=== PATIENT | male | born 1985 | race Caucasian/White ===

== ENCOUNTER 2020-06-05 12:26 | Outpatient (REF) | payer MEDICARE, MEDICAID, SELFPAY ==
[2020-06-05 14:46] LABS: Valproate 43.3 mcg/mL (50.0-100.0)
[2020-06-05 15:09] LABS: Alanine Aminotransferase 28 U/L (0-40); Albumin Level 4.6 g/dL (3.5-5.0); Alkaline Phosphatase 94 U/L (39-117); Aspartate Amino Transferase 24 U/L (5-37); Bilirubin Direct 0.2 mg/dL (0.0-0.5); Bilirubin Total 0.6 mg/dL (0.0-1.0)
[2020-06-05 15:19] LABS: Estimated Average Glucose 137 mg/dL; Hemoglobin A1c % 6.4 %
== END 2020-06-05 12:27 | disposition home or self-care (01) ==
LOC: HO.HMGCLDS 12:26
PROVIDERS: PCP Nurse Practitioner Family; Visit Provider Clinical Nurse Specialist Psychiatric/Mental Health
DX: Z79.899 Other long term (current) drug therapy (principal)
CPT/HCPCS: 80076; 80164; 83036

== ENCOUNTER 2020-11-02 22:04 | Emergency (ER) | payer MEDICARE, MEDICAID, SELFPAY ==
--- NOTE | ~2020-11-02 | XR_ITS ---
EXAMINATION: XR CHEST CLINICAL INFORMATION: Cough COMPARISON: None TECHNIQUE: Frontal view of the chest was obtained. FINDINGS: Low lung volumes. No focal consolidation or mass. Normal pulmonary vascularity. No pleural effusion or pneumothorax. Normal heart size. Regional skeleton intact. XR/XR chest 1V IMPRESSION: No acute pulmonary disease.
--- NOTE | ~2020-11-02 | CT_ITS ---
EXAMINATION: CT ANGIOGRAM OF THE CHEST WITH AND WITHOUT CONTRAST (CT PULMONARY ANGIOGRAM FOR PE) CLINICAL INFORMATION: Reason for Exam low O2, elevated dimer COMPARISON: Chest radiograph 11/02/2020 TECHNIQUE: Prior to contrast administration, noncontrast localization images were obtained. Subsequently, multidetector volumetric imaging was performed from the thoracic inlet to below the diaphragms following the administration of 60 mL Omnipaque 350 intravenous contrast. No contrast reaction reported Sagittal, coronal, and MIP oblique sagittal reformatted images were obtained on the CT workstation, uploaded to PACS, and reviewed. This CT examination was performed using dose optimization techniques as appropriate, variously including the following: *Automated exposure control *Adjustment of mA and/or kV according to patient size (this includes techniques or standardized protocols for targeted exams where dose is matched to indication/reason for exam; i.e. extremities or head) *Use of iterative reconstruction technique Total exam dose-length product 599 mGy-cm FINDINGS: QUALITY OF STUDY/CONTRAST BOLUS: Satisfactory. PULMONARY ARTERIES: No central or segmental pulmonary emboli. THORACIC AORTA: No aneurysm or dissection. LUNG: No focal consolidation, nodules or masses. There is dependent atelectasis bilaterally. PLEURA: No pleural effusion or pneumothorax. MEDIASTINUM: Normal heart size. No pericardial effusion. Mildly enlarged prevascular lymph node measuring up to 1.1 cm in short axis (series 8, image 18). Additional shotty subcentimeter lymph nodes in the prevascular and right paratracheal regions. No evidence of septal bowing or right heart strain. CHEST WALL/AXILLA: No axillary or internal mammary lymphadenopathy. OSSEOUS STRUCTURES: Mild compression deformity of the T12 vertebral body, of indeterminate age, likely chronic. Mild multilevel degenerative changes of the spine. UPPER ABDOMEN: Unremarkable. No reflux of contrast into the hepatic veins to suggest elevated right heart pressures. CT/CT angio chest PE protocol IMPRESSION: 1. No evidence of pulmonary embolism. 2. Dependent atelectasis bilaterally. No large focal consolidation. 3. Mildly enlarged prevascular lymph node measuring up to 1.1 cm in short axis, may be reactive. 4. Mild compression deformity of the T12 vertebral body, of indeterminate age but likely chronic. Recommend clinical correlation. VTE: negative
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
[2020-11-02 22:13] VITALS: BP 141/71; PULSE 125; RESP 20; TEMP 37.2; O2SAT 94; BMI 40.6
[2020-11-02 22:26] LABS: Glucose, Whole Blood 233 mg/dL (60-115)
--- NOTE | 2020-11-02 22:26 | ECG_ITS ---
Test Reason : OVERDOSED Blood Pressure : / mmHG Vent. Rate : 123 BPM Atrial Rate : 123 BPM P-R Int : 146 ms QRS Dur : 082 ms QT Int : 302 ms P-R-T Axes : 043 006 026 degrees QTc Int : 432 ms Sinus tachycardia Possible Inferior infarct , age undetermined Cannot rule out Anterior infarct , age undetermined Abnormal ECG No previous ECGs available Referred By: Criss Bo Electronically Signed By:Renny Calle
[2020-11-02 22:34] VITALS: BP 135/100; PULSE 130; RESP 20; O2SAT 87; O2SAT 96
--- NOTE | 2020-11-02 22:36 | PC.NURSE ---
IV established, all labs obtained including BCX x 2 and lactic. MD at bedside for primary eval. CXR at bedside. IVF infusing per MAR. Continue to monitor.
[2020-11-02 22:37] LABS: MANUAL DIFF FLAG NO
[2020-11-02] MEDS: 0.9 % Sodium Chloride 1,000 ML 999 ML IV ×2 (22:37→23:02)
[2020-11-02 22:39] LABS: Basophils Percent Auto 0.3 % (0-2); Eosinophils Absolute Auto 0.2 X10*3/uL (0.0-0.4); Eosinophils Percent Auto 3.2 % (0-4); Hematocrit 42.4 % (42-52); Imm Gran Abs Auto 0.03 X10*3/uL (0.00-0.03); Imm Gran Pct Auto 0.4 % (0.0-0.4); Lymphocytes Percent Auto 27.4 % (20-40); Mean Corpuscular Hemoglobin 29.2 pg (27.0-33.0); Mean Corpuscular Volume 88.5 fL (80-98); Monocytes Absolute Auto 0.4 X10*3/uL (0.1-1.2); Monocytes Percent Auto 5.9 % (2-11); Neutrophils Absolute Auto 4.7 X10*3/uL (2.0-8.3); Neutrophils Percent Auto 62.8 % (45-73); Platelet Count 155 X10*3/uL (160-400); Red Blood Count 4.79 X10*6/uL (4.60-5.80); Red Cell Distribution Width 14.3 % (11.0-16.0); White Blood Count 7.4 X10*3/uL (4.8-10.8)
[2020-11-02 22:44] VITALS: BP 143/102; PULSE 113; RESP 18; O2SAT 96
--- NOTE | 2020-11-02 22:53 | PC.NURSE ---
This RN calling Poison Control. Per Poison Control, to repeat all labs including Tylenol and ASA level in 4 hours. Per Poison Control to monitor for at least 6 hours. Per Poison Control, caution with Narcan due to daily use and r/f inducing withdrawals. Poison Control to call back for lab results in 2 hours. aware.
[2020-11-02 23:01] VITALS: BP 130/87; PULSE 110; RESP 18; O2SAT 96
[2020-11-02 23:06] LABS: Lactic Acid 2.1 mmol/L (0.5-2.0)
[2020-11-02 23:08] LABS: Acetaminophen LAB < 1 mcg/mL (<30); Alanine Aminotransferase 45 U/L (0-40); Albumin Level 4.2 g/dL (3.5-5.0); Alkaline Phosphatase 122 U/L (39-117); Anion Gap 15 (12-20); Aspartate Amino Transferase 35 U/L (5-37); Bilirubin Total 0.5 mg/dL (0.0-1.0); Blood Urea Nitrogen 18 mg/dL (9-16); Calcium 8.8 mg/dL (8.4-10.2); Carbon Dioxide 25 mmol/L (22-29); Chloride 104 mmol/L (96-108); Creatinine Clr Calc Pharmacy 138.9; Estimated Glomerular Filt Rate > 60; Glucose Random 221 mg/dL (60-115); Magnesium 1.9 mg/dL (1.6-2.6); Potassium 4.2 mmol/L (3.3-5.1); Salicylate < 5.0 mg/dL (15-30); Sodium 140 mmol/L (135-145)
[2020-11-02 23:10] LABS: Acetone, serum QL Negative (Negative)
--- NOTE | 2020-11-02 23:25 | PC.NURSE ---
Dad (Nando Roldan, ) calling this RN for update. Per father, pt has been struggling with an addiction to pain medications for at least a decade. Father explains that pt was seen at [facility] yesterday for leg pain. Pt was prescribed twelve 5 mg Oxycodone that he took tonight prior to father calling EMS. Per father, pt refusing rehab, father planning to [facility] patient. Per father, pt is on a contract with PCP regarding pain medications. Father states He has gone through 90 Oxycodone in a weekend!! Father concerned for pts safety, states he is no longer able to care for pt and no longer wants him in the house.
[2020-11-02 23:46] VITALS: BP 133/78; PULSE 100; RESP 16; O2SAT 95
--- NOTE | 2020-11-02 23:50 | PC.NURSE ---
IVF infusing per MAR. Pt very drowsy, sleeping at this time. VSS, RR 16, 02 SAT 95%, nasal cap 36. Continue to monitor.
[2020-11-03] VITALS (8 sets, daily range): BP systolic 105–142; BP diastolic 68–89; PULSE 88–97; RESP 14–20; TEMP 36.4; O2SAT 90–96
[2020-11-03 00:40] LABS: Reflex Lactate? Lactic Acid Added
--- NOTE | 2020-11-03 00:46 | PC.NURSE ---
Repeat lactic obtained and sent.
--- NOTE | 2020-11-03 00:50 | PC.NURSE ---
Poison Control calling for update regarding pts resulted labs. Plan to repeat chemistries including LFTs, Tylenol and ASA @ 0300. Per Poison Control, if LFTs or Tylenol result as elevated to call them back.
[2020-11-03 01:18] LABS: ~Lactic Acid-LAB USE ONLY 0.9 mmol/L (0.5-2.0)
[2020-11-03 03:14] LABS: MANUAL DIFF FLAG NO
[2020-11-03 03:16] LABS: Basophils Percent Auto 0.4 % (0-2); Eosinophils Absolute Auto 0.2 X10*3/uL (0.0-0.4); Eosinophils Percent Auto 2.7 % (0-4); Hemoglobin 12.6 g/dl (14.0-18.0); Imm Gran Abs Auto 0.03 X10*3/uL (0.00-0.03); Imm Gran Pct Auto 0.4 % (0.0-0.4); Lymphocytes Absolute Auto 2.3 X10*3/uL (1.2-4.9); Lymphocytes Percent Auto 27.6 % (20-40); Mean Corpuscular HGB Conc 32.3 g/dl (31.0-36.0); Mean Corpuscular Hemoglobin 29.2 pg (27.0-33.0); Mean Corpuscular Volume 90.3 fL (80-98); Mean Platelet Volume 11.8 fL (9.4-12.4); Monocytes Absolute Auto 0.9 X10*3/uL (0.1-1.2); Monocytes Percent Auto 10.7 % (2-11); Neutrophils Absolute Auto 4.8 X10*3/uL (2.0-8.3); Neutrophils Percent Auto 58.2 % (45-73); Platelet Count 141 X10*3/uL (160-400); Red Blood Count 4.32 X10*6/uL (4.60-5.80); Red Cell Distribution Width 14.4 % (11.0-16.0); White Blood Count 8.3 X10*3/uL (4.8-10.8)
[2020-11-03 03:39] LABS: Acetaminophen LAB < 1 mcg/mL (<30); Alanine Aminotransferase 38 U/L (0-40); Albumin Level 3.8 g/dL (3.5-5.0); Alkaline Phosphatase 108 U/L (39-117); Anion Gap 11 (12-20); Aspartate Amino Transferase 26 U/L (5-37); Bilirubin Total 0.2 mg/dL (0.0-1.0); Blood Urea Nitrogen 17 mg/dL (9-16); Calcium 8.2 mg/dL (8.4-10.2); Carbon Dioxide 30 mmol/L (22-29); Chloride 106 mmol/L (96-108); Creatinine Clr Calc Pharmacy 169.9; Estimated Glomerular Filt Rate > 60; Glucose Random 130 mg/dL (60-115); Potassium 4.3 mmol/L (3.3-5.1); Sodium 143 mmol/L (135-145); Total Protein 5.9 g/dL (6.5-8.0)
--- NOTE | 2020-11-03 03:51 | PC.NURSE ---
Per MD, pt medically cleared, able to go to the pod in the morning. Pt remains extremely drowsy, wakes briefly but immediately returns to sleep. Plan to consult with crisis in the morning.
--- NOTE | 2020-11-03 03:56 | ECG_ITS ---
Test Reason : REPEAT Blood Pressure : / mmHG Vent. Rate : 091 BPM Atrial Rate : 091 BPM P-R Int : 160 ms QRS Dur : 082 ms QT Int : 358 ms P-R-T Axes : 051 -07 000 degrees QTc Int : 440 ms Normal sinus rhythm Inferior infarct (cited on or before 02-NOV-2020) Cannot rule out Anterior infarct (cited on or before 02-NOV-2020) Abnormal ECG When compared with ECG of 02-NOV-2020 22:12, No significant change was found Referred By: Criss Bo Electronically Signed By:Renny Calle
--- NOTE | 2020-11-03 04:05 | PC.NURSE ---
signals collection technician at bedside to obtain repeat EKG and urine sample.
--- NOTE | 2020-11-03 04:40 | PC.NURSE ---
MD aware of low O2 saturations, 90% on RA. Pt -> O2 via NC @ 2 lpm, O2 sat increasing to 95%. Covid swab obtained due to decreased O2 sats, awaiting results. Continue to monitor.
[2020-11-03 04:43] LABS: Glucose Urine UA 100 MG/DL (NEG); Leukocyte Esterase Urine NEG (NEG); Nitrite Urine NEG (NEG); PH 5.5 (5.0-8.0); Specific Gravity - Urine >= 1.030 (1.005-1.025); Urine Blood NEG (NEG); Urine Ketones NEG (NEG); Urine Protein NEG (NEG-TRACE)
[2020-11-03 04:55] LABS: Appearance Urine CLEAR; Color Urine DARK YELLOW
[2020-11-03] MEDS: cephALEXin 500 MG CAPSULE PO (04:56)
[2020-11-03 04:57] LABS: COVID-19 Test Negative (Negative); IDNOW Serial# 9DD0AD1C
--- NOTE | 2020-11-03 04:59 | PC.NURSE ---
Medicated per MAR.
--- NOTE | 2020-11-03 05:16 | PC.NURSE ---
Fax to [facility].
[2020-11-03 05:18] LABS: Amphetamine Screen Urine Not Detected (Not Detect); Barbiturates, Urine Not Detected (Not Detect); Benzodiazepines Screen Urine POSITIVE (Not Detect); Cannabinoid Screen Urine Not Detected (Not Detect); Cocaine Screen Urine Not Detected (Not Detect); Opiate Screen Urine POSITIVE (Not Detect); Phencyclidine Screen Urine Not Detected (Not Detect)
--- NOTE | 2020-11-03 06:36 | PC.NURSE ---
Addendum entered by Tory Foster 11/03/20 06:37: This RN contacting lab regarding hold light blue tube from admission. Plan to add on DDimer. Original Note: Pt sleeping in bed at this time. Per MD, plan to add on DDimer and possibly considering CTA for r/o PE due to decreased O2 sats. VSS at this time.
--- NOTE | 2020-11-03 06:55 | PC.NURSE ---
received report from james leigh pt is currently asleep, respirations even and unlabored.
--- NOTE | 2020-11-03 07:11 | PC.NURSE ---
[place] [facility] [place] [facility] [place] did not receive the original fax
[2020-11-03 07:20] LABS: D Dimer 333 NG/ML
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
--- NOTE | 2020-11-03 09:02 | PC.NURSE ---
BHN AT BEDSIDE EVALUATING THE PT
--- NOTE | 2020-11-03 10:26 | PC.NURSE ---
pt of to ct daven cleared the pt to go home
--- NOTE | 2020-11-03 10:40 | PC.NURSE ---
PT TAKEN OFF THE OXYGEN TO SEE IF HE DIPPED DOWN AGAIN
[2020-11-03] MEDS: iohexoL 350 MG/ML 75 ML INFUS..BTL 60 ML IV (10:46)
--- NOTE | 2020-11-03 11:30 | PC.NURSE ---
pt satting 92% on room air
== END 2020-11-03 12:45 | disposition home or self-care (01) ==
PROVIDERS: Student in an Organized Health Care Education/Training Program; Emergency Provider Emergency Medicine
DX: T40.2X2A Poisoning by other opioids, intentional self-harm, initial encounter (principal); R45.851 Suicidal ideations; L03.115 Cellulitis of right lower limb; R05 Cough; Y92.009 Unspecified place in unspecified non-institutional (private) residence as the place of occurrence of the external cause; Z79.899 Other long term (current) drug therapy; Z20.822 Contact with and (suspected) exposure to COVID-19
CPT/HCPCS: 36415; 71045; 71275; 80053; 80143; 80179; 80307; 81003; 82009; 82947; 83605; 83735; 85025; 85379; 87040; 87635; 93005; 96361; 96365; 99285; Q9967

== ENCOUNTER 2024-01-27 10:12 | Emergency (ER) | payer MEDICARE, MEDICAID, SELFPAY ==
--- NOTE | ~2024-01-27 | XR_ITS ---
EXAMINATION: XR FOOT, RIGHT CLINICAL INFORMATION: Wound with pain COMPARISON: None available. TECHNIQUE: AP, lateral, and oblique views of the right foot. FINDINGS: There is generalized osteopenia. Only 4 toes are seen with probable amputation of the fifth digit. Degenerative changes are seen at the interphalangeal joints and first. No fractures or dislocations are seen. No bony destructive changes to suggest osteomyelitis. XR/XR foot RT min 3V IMPRESSION: No evidence of osteomyelitis. Degenerative changes as described above.
--- NOTE | ~2024-01-27 | US_ITS ---
EXAMINATION: US VENOUS ULTRASOUND WITH DOPPLER LOWER EXTREMITY, RIGHT CLINICAL INFORMATION: Right lower extremity swelling COMPARISON: None available. TECHNIQUE: Ultrasound of the deep veins is performed from the hip to the calf with compression sonography and color and pulse Doppler assessment. Spectral analysis with color-flow imaging is performed. FINDINGS: There is normal venous compression and respiratory variation and augmented flow. The visualized common femoral vein, superficial femoral vein, profunda femoral vein, popliteal vein, and the posterior tibial and peroneal veins show no evidence of deep venous thrombosis. The contralateral common femoral vein demonstrates normal vascular flow and respiratory variation. Multiple large benign-appearing right groin lymph nodes are seen including 2.2 x 1.1 x 2.4 cm and 4.3 x 1.7 x 3.5 cm lymph nodes. US/US venous duplex LE RT IMPRESSION: 1. No DVT demonstrated in the right lower extremity. 2. Multiple large benign-appearing right groin lymph nodes.
--- NOTE | 2024-01-27 10:27 | ED.GENADULT ---
HPI - General Adult General Chief complaint: Extremity Injury, Lower Stated complaint: Wound R foot Time Seen by Provider: 01/27/24 10:21 Source: patient and RN notes reviewed Mode of arrival: ambulatory Limitations: no limitations History of Present Illness ED Provider: Aliyah Medellin PA-C HPI narrative: This is a 38-year-old male, with a history of Guillain-Herod syndrome, and depression, who presents emergency department with complaints of chronic right foot wound. Pt states that since september 2023 he has had problems with his right heel. He states that he has been seen at multiple offices and hospitals but states that it is not healing. No new trauma or injury. He has been given oxycodone and buprenorphine which does not help with his pain. He endorses chills. complaint: R heel pain, LE swelling Onset (ago): month(s) Location: lower extremity Radiation: non-radiation Severity: moderate Quality: aching Pain Consistency: constant Relieving factors: immobilization Exacerbating factors: movement Associated symptoms: denies other symptoms Treatments prior to arrival: none Related Data Previous Rx's ?Medication ?Instructions ?Recorded cephalexin 500 mg capsule 500 mg PO Q8H 7 days #21 caps 11/03/20 doxycycline monohydrate 100 mg 100 mg PO BID 7 days #14 caps 11/03/20 capsule Allergies Allergy/AdvReac Type Severity Reaction Status Date / Time baclofen Allergy Hives Verified 01/27/24 10:45 lithium Allergy Unresponsiv Verified 01/27/24 10:45 e metformin Allergy Unknown Verified 01/27/24 10:45 sulfamethoxazole Allergy Hives Verified 01/27/24 10:45 [From Bactrim] trimethoprim [From Bactrim] Allergy Hives Verified 01/27/24 10:45 Review of Systems Review of Systems: Yes all other systems are reviewed and are negative Constitutional: Constitutional: Reports as per [facility] Social History Social History Smoked in Last 30 Days: No Use of substances other than those prescribed or required for medical reasons: No Substance Use Type Other:: hx polysubstance Advance Directives: No Advance Directives Information Provided: Yes Do you have a plan to hurt others: No Plan Physical Exam ED Vital Signs: Vital Signs - 24 hr 01/27/24 10:37 01/27/24 12:41 01/27/24 13:04 Temperature 97.7 F 97.7 F Pulse Rate 106 H 127 H 127 H Respiratory Rate 16 17 17 Blood Pressure 142/87 H 139/89 139/89 Pulse Oximetry 96 98 98 Oxygen Delivery Method Room Air Room Air Room Air BMI result Body Mass Index 37.3 Const General: cooperative, comfortable and no acute distress Orientation/consciousness: patient oriented x3 Limitations: no limitations HENMT Head: Yes normal to inspection, Yes normocephalic and Yes atraumatic Ears: hearing grossly normal bilaterally General nose exam: Normal external nose present Face and sinus: Yes normal facial exam Mouth: Normal oral and palatal mucosa present, oropharynx normal and moist mucous membranes Throat: Yes posterior oropharynx normal Eyes General: appearance normal, both eyes and all related structures Eyelids: Yes eyelids normal Conjunctivae: conjunctivae normal Sclerae: sclerae normal Pupils: Equal, round and reactive pupils present EOM: EOMs intact bilaterally Neck Neck: Yes normal visual inspection, Yes full ROM and Yes no lymphadenopathy Lymphatic: no lymphadenopathy noted Chest Chest palpation & inspection: normal inspection of the chest Resp Effort & Inspection: normal respiratory effort and able to speak in complete sentences Auscultation: clear to auscultation bilaterally, no crackles, no rales, no rhonchi and no wheezes Cardio Rate: regular rate Rhythm: regular rhythm Heart sounds: S1 normal heart sound present and S2 normal heart sound present GI Inspection: Yes normal to inspection Skin General skin exam: no rashes or lesions noted Trauma: no lacerations or abrasions Wounds: no wounds Neuro General: patient oriented x3 and moves all extremities Cranial nerves: Yes Equal, round and reactive pupils present Extrem Other: R heel with chronic ulceration noted, no surrounding erythema, warmth or drainage. Strong DP pulse. 1+ edema noted General: Yes normal to inspection Right upper extremity: normal to inspection Left upper extremity: normal to inspection Right lower extremity: normal to inspection Left lower extremity: normal to inspection Course Reevaluation(s) Reevaluation #1: Labs returned, he has no leukocytosis, he does have a normocytic anemia noted with a H&H of 13/38.3 chemistry without any evidence of BRYCE, slight hyperglycemia at 145, CRP elevated at 0.93. Foot x-ray does not show any evidence of osteomyelitis. Awaiting ultrasound report at this time. I discussed workup with patient and went to reassess his pain after medicating with oxycodone 5 mg p.o.. Patient reports that this did not touch his pain whatsoever and is requesting more pain medication. He was found ambulating throughout the emergency room, did not appear to be in any significant distress secondary to pain. I discussed with him Toradol would be a good option for him, patient reporting that he is tired of being treated as a drug addict, I explained to him in great detail that that is not the case and I would like to further assess his pain and further manage his pain with other options besides narcotics. He has agreeable for the Toradol. After leaving the room, patient is seen trying to walk out of the emergency room. I requested the hotel maintenance technician to repeat temperature as his heart rate was elevated at 127, and upon reassessment with the ED hotel maintenance technician to have this temperature repeated, he was found trying to get out of the emergency room prior to completing treatment. I stopped patient and told him that his workup is not complete and I am concerned given chronic wound, elevated HR and his ultrasound has not returned. Patient states that he ?is not trying to start a problem and would like to leave , I advised patient that this is against medical advice and that he needs to have his workup completed in the emergency room, he adamantly refuses despite me telling him all of the risks of leaving without completing his treatment including worsening infection, . He understands the risks of leaving against medical advice. We received paperwork from [facility], he had a similar incident on 01/16, where he stated he was using the restroom and left the building. Time: 12:49 Medications Administered Discontinued Medications Generic Name Dose Route Start Last Admin Trade Name Jake PRN Reason Stop Dose Admin Oxycodone HCl 5 mg 01/27/24 10:51 01/27/24 11:18 Oxycodone Hcl Immed Release 5 Mg Tablet PO 01/27/24 10:52 5 mg ONCE ONE Administration Medical Decision Making Medical Decision Making [facility] Narrative: 38 y/o M presenting to the ER with complaints of right foot chronic wound. On arrival, vital signs within normal limits. He has had a chronic wound for several months. Has been seen at multiple hospitals for similar symptoms however states that no one is listening to him in treating his pain. Discussed with patient that we can give him a 1 time dose of oxycodone while we await for workup. Area does not appear to be profoundly infected however given chronic wound, will obtain labs, x-ray, ultrasound, as well as blood cultures. Differential Diagnosis Differential Diagnoses: The differential diagnosis associated with the presentation includes chronic wound cellulitis DVT ulcer Admission/Observation Consideration of admission/observation: Escalation of care including admission/observation considered Escalation of care including admission/observation considered Lab Data MDM Lab Attestation statement: I reviewed the patient's lab results. No leukocytosiis, 01/27/24 11:33 01/27/24 11:33 Labs: Lab Results 01/27/24 Range/Units 11:33 WBC 5.6 (4.8-10.8) X10*3/uL RBC 4.07 L (4.60-5.80) X10*6/uL Hgb 13.0 L (14.0-18.0) g/dl Hct 38.3 L (42.0-52.0) % MCV 94.1 (80.0-98.0) fL MCH 31.9 (27.0-33.0) pg MCHC 33.9 (31.0-36.0) g/dl RDW 15.0 (11.0-16.0) % Plt Count 210 (160-400) X10*3/uL MPV 10.8 (9.4-12.4) fL Immature Gran % (Auto) 0.4 (0.0-0.4) % Neut % (Auto) 54.2 (45-73) % Lymph % (Auto) 35.4 (20-40) % Williams % (Auto) 7.0 (2-11) % Eos % (Auto) 2.5 (0-4) % Baso % (Auto) 0.5 (0-2) % Lymph # (Auto) 2.0 (1.2-4.9) X10*3/uL Williams # (Auto) 0.4 (0.1-1.2) X10*3/uL Eos # (Auto) 0.1 (0.0-0.4) X10*3/uL Baso # (Auto) 0.0 (0.0-0.2) X10*3/uL Abs Immat Gran (auto) 0.02 (0.00-0.03) X10*3/uL Absolute Neuts (auto) 3.0 (2.0-8.3) x10*3/uL Absolute Nucleated RBC 0.000 (0.0-0.012) X10*3/uL Nucleated RBC % (auto) 0.0 (0.0-0.2) /100WBC ESR 27 H (0-15) MM/HR Sodium 141 (135-145) mmol/L Potassium 3.6 (3.3-5.1) mmol/L Chloride 110 H (96-108) mmol/L Carbon Dioxide 24 (22-29) mmol/L Anion Gap 11 L (12-20) BUN 12 (9-16) mg/dL Creatinine 0.66 (0.5-1.4) mg/dL Estim Creat Clear Calc 202.9 Estimated GFR > 60 Random Glucose 145 H (60-115) mg/dL Calcium 9.3 D (8.4-10.2) mg/dL Total Bilirubin 0.2 (0.0-1.0) mg/dL Direct Bilirubin 0.2 (0.0-0.5) mg/dL AST 18 (5-37) U/L ALT 17 (0-40) U/L Alkaline Phosphatase 107 (39-117) U/L C-Reactive Protein 0.93 H (< or = 0.50) mg/dL Total Protein 7.1 (6.5-8.0) g/dL Albumin 4.0 (3.5-5.0) g/dL Radiology Impression Discussion of test interpretation with radiology: I have reviewed the radiologist's reading. Radiologist Impression: FINDINGS: There is generalized osteopenia. Only 4 toes are seen with probable amputation of the fifth digit. Degenerative changes are seen at the interphalangeal joints and first. No fractures or dislocations are seen. No bony destructive changes to suggest osteomyelitis. XR/XR foot RT min 3V IMPRESSION: No evidence of osteomyelitis. Degenerative changes as described above. Dictated By: David Santana MD Discharge Plan Discharge Clinical Impression: Non-healing wound of right heel Patient Disposition: Left Against Medical Advice Prescriptions: No Action doxycycline monohydrate 100 mg capsule 100 mg PO BID 7 Days Qty: 14 0RF cephalexin 500 mg capsule 500 mg PO Q8H 7 Days Qty: 21 0RF Stand Alone Forms: Against Medical Advice Interventions: ED Discharge Assessment Last Done: 01/27/24 13:04 Discharge Date/Time: 01/27/24 13:05 Print Language: Tajik
[2024-01-27 10:37] VITALS: BP 142/87; PULSE 106; RESP 16; TEMP 36.5; O2SAT 96; BMI 37.3
[2024-01-27] MEDS: oxyCODONE HCl Immed Release 5 MG TABLET PO (11:18)
--- NOTE | 2024-01-27 11:20 | PC.NURSE ---
pt medicated per OCT for 8/10 R heel pain, provider dressed chronic diabetic ulcer on heel w light nonadhesive wrap.
[2024-01-27 11:37] LABS: MANUAL DIFF FLAG NO
[2024-01-27 11:43] LABS: Basophils Percent Auto 0.5 % (0-2); Eosinophils Absolute Auto 0.1 X10*3/uL (0.0-0.4); Eosinophils Percent Auto 2.5 % (0-4); Hematocrit 38.3 % (42.0-52.0); Imm Gran Abs Auto 0.02 X10*3/uL (0.00-0.03); Imm Gran Pct Auto 0.4 % (0.0-0.4); Lymphocytes Percent Auto 35.4 % (20-40); Mean Corpuscular HGB Conc 33.9 g/dl (31.0-36.0); Mean Corpuscular Hemoglobin 31.9 pg (27.0-33.0); Mean Corpuscular Volume 94.1 fL (80.0-98.0); Mean Platelet Volume 10.8 fL (9.4-12.4); Monocytes Absolute Auto 0.4 X10*3/uL (0.1-1.2); Neutrophils Percent Auto 54.2 % (45-73); Platelet Count 210 X10*3/uL (160-400); Red Blood Count 4.07 X10*6/uL (4.60-5.80); White Blood Count 5.6 X10*3/uL (4.8-10.8)
[2024-01-27 11:57] LABS: Alanine Aminotransferase 17 U/L (0-40); Alkaline Phosphatase 107 U/L (39-117); Anion Gap 11 (12-20); Aspartate Amino Transferase 18 U/L (5-37); Bilirubin Direct 0.2 mg/dL (0.0-0.5); Blood Urea Nitrogen 12 mg/dL (9-16); C Reactive Protein 0.93 mg/dL (< or = 0.50); Calcium 9.3 mg/dL (8.4-10.2); Carbon Dioxide 24 mmol/L (22-29); Chloride 110 mmol/L (96-108); Creatinine Clr Calc Pharmacy 202.9; Estimated Glomerular Filt Rate > 60; Glucose Random 145 mg/dL (60-115); Potassium 3.6 mmol/L (3.3-5.1); Sodium 141 mmol/L (135-145); Total Protein 7.1 g/dL (6.5-8.0)
--- NOTE | 2024-01-27 12:00 | PC.NURSE ---
pt reporting continued pain, provider aware.
[2024-01-27 12:14] LABS: Bilirubin Total 0.2 mg/dL (0.0-1.0)
[2024-01-27 12:41] VITALS: BP 139/89; PULSE 127; RESP 17; O2SAT 98
[2024-01-27 12:42] LABS: Erythrocyte Sedimentation Rate 27 MM/HR (0-15)
--- NOTE | 2024-01-27 12:58 | PC.NURSE ---
provider in room w pt reviewing labs, pt agreeable to toradol inj for cont'd pain. tech went to bedside to retemp pt - pt found wandering in hallway trying to leave. stated that he was tired of being treated like he has a drug problem. pt requesting to leave AMA. left w/o paperwork and repeat vitals, risk reviewed verbally by provider w pt. pt declined to sign AMA paperwork.
[2024-01-27 13:04] VITALS: BP 139/89; PULSE 127; RESP 17; TEMP 36.5; O2SAT 98
== END 2024-01-27 13:05 | disposition left against medical advice (07) ==
PROVIDERS: Physician Assistant Medical; Emergency Provider Student in an Organized Health Care Education/Training Program; PCP Internal Medicine Infectious Disease
DX: S91.331A Puncture wound without foreign body, right foot, initial encounter (principal); R60.0 Localized edema; M79.671 Pain in right foot; X58.XXXA Exposure to other specified factors, initial encounter; Y93.9 Activity, unspecified; Y92.9 Unspecified place or not applicable; Y99.8 Other external cause status; Z79.899 Other long term (current) drug therapy
CPT/HCPCS: 36415; 73630; 80048; 80076; 85025; 85652; 86140; 87040; 93971; 99284

== ENCOUNTER 2024-11-14 23:49 | Emergency (ER) | payer MEDICARE, MEDICAID, SELFPAY ==
--- NOTE | ~2024-11-14 | XR_ITS ---
CLINICAL HISTORY: cough Exam: PA and lateral views of the chest. Comparison: None. Findings: Mild hypoinflation. Cardiac silhouette is at the upper limits of normal for size. Streaky perihilar and basilar densities with areas of bronchial wall thickening. No dense area of consolidation. No pleural effusion or pneumothorax. Impression: Perihilar bronchitis. This document has been electronically signed by: Renzo Juares MD on 11/15/2024 01:25:37
--- NOTE | 2024-11-14 23:57 | ED.GENADULT ---
HPI - General Adult General Chief complaint: Psychiatric Symptoms Stated complaint: SEVERELY ETOH, SI/HI CONCERNS Time Seen by Provider: 11/14/24 23:57 Source: patient and EMS Mode of arrival: EMS Limitations: no limitations History of Present Illness ED Provider: javier culp NP HPI narrative: Patient is a 39-year-old male with past medical history of Guillain-[place] syndrome wheelchair-bound, right BKA, chronic peripheral neuropathy, chronic sacral decubitus ulcers,, type 2 diabetes, hypertension, right hip osteoarthritis s/p replacement, multiple compression fractures, osteoporosis, PTSD, depression, bipolar disorder, history of SI attempts in 2012 and 2014 with medication overdose who presents emergency department via EMS coming from home this evening after endorsing having been drinking alcohol for the entirety of the day including vodka. Per EMS patient was endorsing SI, HI surrounding evperiences, versions of genocide. Expressing stressors surrounding his father being in a penitentiary facility for the past 4 months, he believes his father she would be coming home in the next 2 weeks, any does not feel as though he can help him or take care of him. Denies SI/HI. Per EMS, PD has been there about daily due to various complaints. Patient was home alone on EMS arrival. He is calm and cooperative on arrival to the ED. he endorses having chronic low back and bilateral hip pain which he states is being managed by his primary care doctor through [facility] with morphine, endorses having a right [id number] amputation in May of 2024 due to ongoing heel wound. When asked he does endorse having recent cough and rhinitis. Denies headache, chest pain, shortness of breath, nausea, vomiting, abdominal pain, urogenital symptoms. Related Data Previous Rx's ?Medication ?Instructions ?Recorded cephalexin 500 mg capsule 500 mg PO Q8H 7 days #21 caps 11/03/20 doxycycline monohydrate 100 mg 100 mg PO BID 7 days #14 caps 11/03/20 capsule Allergies Allergy/AdvReac Type Severity Reaction Status Date / Time baclofen Allergy Hives Verified 11/15/24 00:18 lithium Allergy Unresponsiv Verified 11/15/24 00:18 e metformin Allergy Unknown Verified 11/15/24 00:18 sulfamethoxazole Allergy Hives Verified 11/15/24 00:18 [From Bactrim] trimethoprim [From Bactrim] Allergy Hives Verified 11/15/24 00:18 Review of Systems Review of Systems: Yes all other systems are reviewed and are negative [facility] Past Medical History Attestation statement: The following information was validated with the patient. Source: old records reviewed Social History Social History Alcohol intake: current Alcohol intake frequency: 3 or more drinks per day Alcohol type: hard liquor Smoked in Last 30 Days: Yes Use of substances other than those prescribed or required for medical reasons: No Advance Directives: No Physical Exam ED Vital Signs: Vital Signs - 24 hr 11/15/24 00:03 Temperature 99.1 F Pulse Rate 102 H Respiratory Rate 16 Blood Pressure 147/99 H Pulse Oximetry 99 Oxygen Delivery Method Room Air BMI result Body Mass Index 35.3 Appearance: Alert.?Oriented to person, place and time. No acute distress.?Normal affect. Eyes: Pupils equal, round and reactive to light.? ENT: Pharynx normal.?? Neck: Normal inspection.? Neck supple.?? CVS: Heart sounds normal. Normal heart rate and rhythm.? Pulses normal.?? Respiratory: No respiratory distress.? Lung sounds clear to auscultation bilaterally?? Abdomen: Soft and non-tender. Normoactive bowel sounds. .?? Skin: Skin warm and dry.? Normal skin color.? Extremities: No lower extremity edema.? Right BKA. Neuro: Moves all extremities spontaneously. Sensation intact bilaterally. CN II-XII intact. No focal neuro deficits. Medical Decision Making Medical Decision Making MDM Narrative: Patient is a 39-year-old male with past medical history of Guillain-[place] syndrome primarily wheelchair-bound, right BKA, chronic peripheral neuropathy, chronic sacral decubitus ulcers,, type 2 diabetes, hypertension, right hip osteoarthritis s/p replacement, multiple compression fractures, osteoporosis, PTSD, depression, bipolar disorder, history of SI attempts in 2012 and 2014 with medication overdose, on chronic pain management with morphine and Lyrica, currently on a wait list for Psychiatry at [facility] who presents emergency department today acutely intoxicated, denying SI/HI to myself as well as nursing staff here though did not to EMS, he continues to express concerns about his father not being home and hospitalized, but also about his ability to take care of his father. I did access [facility] to obtain further of his medical history, and recent PCP note indicates that rather patient's father was the caregiver of him, managing his medications etc. he does endorse having a cough and rhinitis, will obtain viral serologies and CXR to exclude abnormality.Will obtain CBC to evaluate for leukocytosis/ anemia, CMP and lipase to evaluate for abnormal electrolytes /abnormal renal function/ abnormal hepatic/biliary function, abuse screen, ethanol level, and Urinalysis. At this time, 04:50, patient is awake, alert and oriented x3, ambulatory, steady gait. Patient is able to have a coherent conversation. Patient is adamant that he is not suicidal or homicidal. Patient requesting to be discharged home. Differential Diagnosis Differential Diagnoses: The differential diagnosis associated with the presentation includes (See narrative above) Admission/Observation Consideration of admission/observation: Escalation of care including admission/observation considered Patient is being observed in the Emergency Department for acute intoxication and depression. Observation time was started at 01:23 on 11/15/2024.?The patient is currently stable and non-toxic appearing. Observation is being initiated in the Emergency Department to allow time to help differentiate if the patient?s depression is due to alcohol intoxication. The patient will receive frequent assessments from the provider as well as the nursing staff. The patient will be monitored for the need for diagnostic imaging such as a CT head, MRI brain, chest x-ray, and serial EKGs to evaluate for prolonged QTc intervals. Consult Healthcare Provider Management of the patient was discussed with: Behavioral Health Provider Lab Data MDM Lab Attestation statement: I reviewed the patient's lab results. CBC is without leukocytosis anemia or thrombocytopenia. No electrolyte derangement. No BRYCE. LFTs minimally elevated, benign abdominal examination, likely secondary to alcohol usage. Ethanol level of 369. 11/15/24 00:48 11/15/24 00:48 Labs: Lab Results 11/15/24 11/15/24 Range/Units 00:48 01:08 WBC 8.0 (4.8-10.8) X10*3/uL RBC 5.46 D (4.60-5.80) X10*6/uL Hgb 15.1 (14.0-18.0) g/dl Hct 43.4 (42.0-52.0) % MCV 79.5 L (80.0-98.0) fL MCH 27.7 (27.0-33.0) pg MCHC 34.8 (31.0-36.0) g/dl RDW 16.9 H (11.0-16.0) % Plt Count 374 D (160-400) X10*3/uL MPV 10.3 (9.4-12.4) fL Immature Gran % (Auto) 0.1 (0.0-0.4) % Neut % (Auto) 51.3 (45-73) % Lymph % (Auto) 42.2 H (20-40) % Ritchie % (Auto) 4.5 (2-11) % Eos % (Auto) 0.7 (0-4) % Baso % (Auto) 1.2 (0-2) % Lymph # (Auto) 3.4 (1.2-4.9) X10*3/uL Ritchie # (Auto) 0.4 (0.1-1.2) X10*3/uL Eos # (Auto) 0.1 (0.0-0.4) X10*3/uL Baso # (Auto) 0.1 (0.0-0.2) X10*3/uL Abs Immat Gran (auto) 0.01 (0.00-0.03) X10*3/uL Absolute Neuts (auto) 4.1 (2.0-8.3) x10*3/uL Absolute Nucleated RBC 0.000 (0.0-0.012) X10*3/uL Nucleated RBC % (auto) 0.0 (0.0-0.2) /100WBC Sodium 143 (135-145) mmol/L Potassium 3.4 (3.3-5.1) mmol/L Chloride 106 (96-108) mmol/L Carbon Dioxide 20 L (22-29) mmol/L Anion Gap 20 (12-20) BUN 11 (9-16) mg/dL Creatinine 0.59 (0.5-1.4) mg/dL Estim Creat Clear Calc 218.4 Estimated GFR > 60 Random Glucose 133 H (60-115) mg/dL Calcium 8.5 D (8.4-10.2) mg/dL Magnesium 1.5 L (1.6-2.6) mg/dL Total Bilirubin 1.2 H (0.0-1.0) mg/dL Direct Bilirubin 0.5 (0.0-0.5) mg/dL AST 66 H (5-37) U/L ALT 47 H (0-40) U/L Alkaline Phosphatase 131 H (39-117) U/L Total Protein 6.8 (6.5-8.0) g/dL Albumin 3.9 (3.5-5.0) g/dL Lipase 26 (8-78) U/L Urine Color Yellow Urine Appearance Clear Urine pH 6.5 (5.0-9.0) Ur Specific [place] 1.010 (1.005-1.025) Urine Protein Negative (Neg-Trace) mg/dL Urine Glucose (UA) Negative (Negative) mg/dL Urine Ketones Negative (Negative) mg/dL Urine Blood Negative (Negative) Urine Nitrite Negative (Negative) Ur Leukocyte Esterase Negative (Negative) Salicylates < 5.0 L (15-30) mg/dL Urine Opiates Screen Not Detected (Not Detect) Ur Buprenorphine Scrn Not Detected (Not Detect) ng/mL Ur Oxycodone Screen Not Detected (Not Detect) ng/mL Urine Methadone Screen Not Detected (Not Detect) ng/mL Urine Fentanyl Screen Not Detected (Not Detect) Acetaminophen < 3 (<30) mcg/mL Ur Barbiturates Screen Not Detected (Not Detect) Ur Phencyclidine Scrn Not Detected (Not Detect) Ur Amphetamines Screen Not Detected (Not Detect) U Benzodiazepines Scrn Not Detected (Not Detect) Urine Cocaine Screen Not Detected (Not Detect) U Marijuana (THC) Screen Not Detected (Not Detect) Ethyl Alcohol 369 H* mg/dL Influenza Type A (PCR) NEGATIVE (Negative) Influenza Type B (PCR) NEGATIVE (Negative) RSV RNA Qual (PCR) NEGATIVE (Negative) SARS-CoV-2 RNA (RT-PCR) NEGATIVE (Negative) Independent Interpretation I performed an independent interpretation of an: Plain X-Ray Radiology Impression Discussion of test interpretation with radiology: I have reviewed the radiologist's reading. Radiologist Impression: Exam: PA and lateral views of the chest. Comparison: None. Findings: Mild hypoinflation. Cardiac silhouette is at the upper limits of normal for size. Streaky perihilar and basilar densities with areas of bronchial wall thickening. No dense area of consolidation. No pleural effusion or pneumothorax. Impression: Perihilar bronchitis. Independent Historian Clinical information obtained from an independent historian. History obtained from or confirmed by: EMS External Record Review External record reviewed: Outpatient record Chronic Conditions Patient?s care impacted by: Other (See narrative above) Discharge Plan Discharge Clinical Impression: Alcohol intoxication, Depression Patient Disposition: Home, Self-Care Instructions: Depression (ED), Alcohol Intoxication (ED) Additional Instructions: Please follow-up with your primary care physician tomorrow. If you have any worsening or new symptoms, please return to the emergency room or call 911 Prescriptions: No Action doxycycline monohydrate 100 mg capsule 100 mg PO BID 7 Days Qty: 14 0RF cephalexin 500 mg capsule 500 mg PO Q8H 7 Days Qty: 21 0RF Interventions: [place]-Suicide Risk Severity Scale Last Done: 11/15/24 00:19 Print Language: S[place]an
[2024-11-14 23:58] VITALS: BP 204/142; PULSE 111; O2SAT 99
[2024-11-15 00:03] VITALS: BP 147/99; PULSE 102; RESP 16; TEMP 37.3; O2SAT 99
[2024-11-15 00:05] VITALS: BMI 35.3
--- NOTE | 2024-11-15 00:28 | PC.NURSE ---
pt denies SI/HI at this time. sad his dad is not home. appears dad was his medical sales. pt physically and mentally declining since this transition
[2024-11-15 00:56] LABS: MANUAL DIFF FLAG NO
[2024-11-15 00:57] LABS: Basophils Absolute Auto 0.1 X10*3/uL (0.0-0.2); Basophils Percent Auto 1.2 % (0-2); Eosinophils Absolute Auto 0.1 X10*3/uL (0.0-0.4); Eosinophils Percent Auto 0.7 % (0-4); Hematocrit 43.4 % (42.0-52.0); Hemoglobin 15.1 g/dl (14.0-18.0); Imm Gran Abs Auto 0.01 X10*3/uL (0.00-0.03); Imm Gran Pct Auto 0.1 % (0.0-0.4); Lymphocytes Absolute Auto 3.4 X10*3/uL (1.2-4.9); Lymphocytes Percent Auto 42.2 % (20-40); Mean Corpuscular HGB Conc 34.8 g/dl (31.0-36.0); Mean Corpuscular Hemoglobin 27.7 pg (27.0-33.0); Mean Corpuscular Volume 79.5 fL (80.0-98.0); Mean Platelet Volume 10.3 fL (9.4-12.4); Monocytes Absolute Auto 0.4 X10*3/uL (0.1-1.2); Monocytes Percent Auto 4.5 % (2-11); Neutrophils Absolute Auto 4.1 x10*3/uL (2.0-8.3); Neutrophils Percent Auto 51.3 % (45-73); Platelet Count 374 X10*3/uL (160-400); Red Blood Count 5.46 X10*6/uL (4.60-5.80); Red Cell Distribution Width 16.9 % (11.0-16.0)
[2024-11-15 01:14] LABS: Acetaminophen LAB < 3 mcg/mL (<30); Alanine Aminotransferase 47 U/L (0-40); Albumin Level 3.9 g/dL (3.5-5.0); Alkaline Phosphatase 131 U/L (39-117); Anion Gap 20 (12-20); Aspartate Amino Transferase 66 U/L (5-37); Bilirubin Direct 0.5 mg/dL (0.0-0.5); Bilirubin Total 1.2 mg/dL (0.0-1.0); Blood Urea Nitrogen 11 mg/dL (9-16); Calcium 8.5 mg/dL (8.4-10.2); Carbon Dioxide 20 mmol/L (22-29); Chloride 106 mmol/L (96-108); Creatinine Clr Calc Pharmacy 218.4; Estimated Glomerular Filt Rate > 60; Ethanol 369 mg/dL; Glucose Random 133 mg/dL (60-115); Lipase 26 U/L (8-78); Magnesium 1.5 mg/dL (1.6-2.6); Potassium 3.4 mmol/L (3.3-5.1); Salicylate < 5.0 mg/dL (15-30); Sodium 143 mmol/L (135-145); Total Protein 6.8 g/dL (6.5-8.0)
[2024-11-15 01:16] LABS: Appearance Urine Clear; Color Urine Yellow; Glucose Urine UA Negative (Negative); Leukocyte Esterase Urine Negative (Negative); Nitrite Urine Negative (Negative); PH 6.5 (5.0-9.0); Urine Blood Negative (Negative); Urine Ketones Negative (Negative); Urine Protein Negative (Neg-Trace)
[2024-11-15 01:36] LABS: Influenza A PCR NEGATIVE (Negative); Influenza B PCR NEGATIVE (Negative); Resp Syncy Virus RNA Qual PCR NEGATIVE (Negative); SARS COV2 PCR INHOUSE NEGATIVE (Negative)
[2024-11-15 02:33] LABS: Amphetamine Screen Urine Not Detected (Not Detect); Barbiturates, Urine Not Detected (Not Detect); Benzodiazepines Screen Urine Not Detected (Not Detect); Buprenorphine Scr Not Detected (Not Detect); Cannabinoid Screen Urine Not Detected (Not Detect); Cocaine Screen Urine Not Detected (Not Detect); Fentanyl, urine Not Detected (Not Detect); Methadone Screen, Urine Not Detected (Not Detect); Opiate Screen Urine Not Detected (Not Detect); Oxycodone Screen Urine Not Detected (Not Detect); Phencyclidine Screen Urine Not Detected (Not Detect)
--- NOTE | 2024-11-15 03:25 | PC.NURSE ---
pt requesting food. states he has not eaten in 5 days chaitanya been sick
--- NOTE | 2024-11-15 04:54 | PC.NURSE ---
pt requesting to be discharged. states he will take an uber home, no longer feels drunk so doesn't know why he has to stay. continues to denies SI/HI. pt calm and cooperative, speaking in clear full sentences. aware, will d/c pt home
[2024-11-15 05:09] VITALS: BP 157/110; PULSE 132; RESP 20; TEMP 36.8; O2SAT 97
[2024-11-15 05:19] VITALS: BP 157/110; PULSE 132; RESP 20; TEMP 36.8; O2SAT 97
== END 2024-11-15 05:19 | disposition home or self-care (01) ==
PROVIDERS: Nurse Practitioner Family; Emergency Provider Emergency Medicine; PCP Nurse Practitioner Family
DX: F32.A Depression, unspecified (principal); F10.120 Alcohol abuse with intoxication, uncomplicated; Y90.8 Blood alcohol level of 240 mg/100 ml or more; R05.9 Cough, unspecified; Z03.818 Encounter for observation for suspected exposure to other biological agents ruled out; Z79.899 Other long term (current) drug therapy
CPT/HCPCS: 0241U; 36415; 71046; 80048; 80076; 80143; 80179; 80307; 81003; 83690; 83735; 85025; 99284

== ENCOUNTER → 2024-11-15 00:18 | Outpatient (BNV) | payer MEDICARE, MEDICAID, SELFPAY | PROVIDERS: Emergency Provider Emergency Medicine; PCP Nurse Practitioner Family; Visit Provider Radiology Diagnostic Radiology | DX: J20.9 Acute bronchitis, unspecified (principal) | CPT/HCPCS: 71046 ==

== ENCOUNTER 2025-02-02 15:31 | Inpatient (IN) | payer MEDICARE, MEDICAID, SELFPAY ==
[2025-02-02] VITALS (11 sets, daily range): BP systolic 121–141; BP diastolic 66–91; PULSE 114–130; RESP 13–25; TEMP 36.5; O2SAT 94–97; BMI 34.7
--- NOTE | ~2025-02-02 | XR_ITS ---
CLINICAL HISTORY: FTT, etoh, r o aspiration Chest Radiographs, 2 views Comparison: None Findings: No cardiomegaly. Normal mediastinal contours. No pneumothorax. No opacity. No pleural effusion. Normal upper abdomen. No acute fracture. Impression: No acute findings. No radiographic evidence of aspiration pneumonia. This document has been electronically signed by: Maria Luisa Yap MD on 02/02/2025 17:19:03
--- NOTE | ~2025-02-02 | XR_ITS ---
CLINICAL HISTORY: cellulitis Exam: AP, lateral, and oblique views of the left foot. Comparison: None. Findings: Patient has undergone prior amputation of the IP joint of the great toe in the PIP joint of the 2nd toe. Truncation and diminutive appearance of the distal aspect of the 5th metatarsal which may be postoperative in nature. Remote fracture deformity of the distal diaphysis of the 4th metatarsal is evident with cortical thickening. Bones are osteopenic. Bulky ossification superior to the posterior calcaneus measuring 4.1 x 2.6 cm in size. No periosteal reaction seen at that site. Subtle erosive changes seen at the distal aspect of the proximal phalanx of the 3rd toe. No acute fracture or bony destructive changes are identified. No soft tissue gas. Impression: 1. Subtle erosive change of the distal aspect of the proximal phalanx of the 3rd toe. Osteomyelitis and septic arthritis is not excluded at this location. No other areas of concern for osteomyelitis. 2. Multiple chronic abnormalities as fully discussed above. This includes bulky ossification along the superior aspect of the posterior calcaneus of the expected Achilles tendon insertion site. This is likely related to chronic Achilles tendon calcific enthesopathy. This document has been electronically signed by: Renzo Juares MD on 02/02/2025 19:17:45
--- NOTE | ~2025-02-02 | XR_ITS ---
CLINICAL HISTORY: Overlying diabetic ulcer rule out osteo Exam: AP, lateral, and oblique views of the left knee. Comparison: None. Findings: Bones are severely osteopenic. Bony alignment is anatomic. No fracture or bony destructive changes identified. No periosteal reaction. Trace knee joint effusion. Minimal to mild degenerative change in all 3 compartments, most pronounced within the medial compartment. Impression: 1. No radiographic findings of osteomyelitis. 2. Osteopenia with minimal to mild degenerative change. This document has been electronically signed by: Renzo Juares MD on 02/02/2025 19:13:58
--- NOTE | ~2025-02-02 | CT_ITS ---
CLINICAL HISTORY: large sacral ulcer Exam: CT abdomen and pelvis with intravenous contrast. Comparison: None. Findings: CT abdomen: No infiltrates within the lung bases. There is a 2 mm juxtapleural pulmonary nodule within the left lower lobe on axial image 2. No pleural effusion or pneumothorax. Multilevel degenerative disc disease and degenerative facet disease throughout the visualized portions of the thoracolumbar spine. No bony destructive change or fracture identified. Nodularity along the periphery of the liver is evident. No discrete hepatic mass lesion. Main portal vein is patent. Spleen and pancreas are unremarkable. Peripherally calcified gallstones measure up to 2 cm in size without gallbladder wall thickening or pericholecystic fluid. Left adrenal gland mass measures 1.7 x 1.7 cm in size. This has Hounsfield units of 53. This is along the inferior aspect of the left adrenal gland. Along the superior aspect of the medial limb is an additional mass measuring 2.0 x 1.6 cm in size. This mass has Hounsfield units of 31. Right adrenal gland is unremarkable. Symmetric enhancement of the kidneys without mass, hydronephrosis, or nephrolithiasis. Large amount of ingested contents within the stomach. No dilated small bowel. Many of the small bowel loops are fluid-filled. Scattered small bowel air-fluid levels. CT pelvis: Large sacral decubitus ulcer is evident. This spans a craniocaudal distance of 7.7 cm. This measures 5.6 cm medial to lateral. This measures 1 cm in depth. Abnormal soft tissue induration and fullness along the deep aspect of the sacral decubitus ulcer with areas of subtle bony irregularity along the posterior aspect of the inferior sacrum and coccyx. The coccyx is quite diminutive. No discrete fluid collection seen to suggest abscess. Additional decubitus ulcer seen along the right ischium. Soft tissue defect measures approximately 2 cm in size with abnormal soft tissue density extending into the posterior aspect of the right ischial tuberosity. Likely chronic periosteal reaction and cortical thickening of the right ischium. Right hip arthroplasties in place. Liquid stool seen throughout the distal colon. No obstructive phenomenon. No free fluid or free air. Impression: 1. Large sacral decubitus ulcer with likely chronic osteomyelitis of the distal sacrum and visualized portion of the coccyx. 2. Right ischial decubitus ulcer with additional site of likely chronic osteomyelitis of the right ischial tuberosity. 3. Liquid stool throughout the distal colon suggesting diarrheal disease. 4. Cholelithiasis without CT findings of cholecystitis. 5. Left-sided adrenal gland masses. Adrenal adenomas would be favored statistically. However, this is not a definitive determination given the Hounsfield unit measurements. Nonemergent CT of the abdomen using the adrenal gland mass protocol is suggested for further evaluation. 6. Cirrhotic liver. This document has been electronically signed by: Renzo Juares MD on 02/02/2025 20:15:10
--- NOTE | 2025-02-02 16:26 | ED.GENADULT ---
HPI - General Adult General Chief complaint: Psychiatric Symptoms Stated complaint: depression, trouble caring for self Time Seen by Provider: 02/02/25 15:49 Source: patient and EMS Mode of arrival: EMS Limitations: no limitations History of Present Illness ED Provider: YVETTE MCNAMARA PA-C HPI narrative: 40 year old male with pmhx significant for Guillain-Celina syndrome wheelchair-bound, right BKA, chronic peripheral neuropathy, chronic sacral decubitus ulcers,, type 2 diabetes, hypertension, right hip osteoarthritis s/p replacement, multiple compression fractures, osteoporosis, PTSD, depression, bipolar disorder, history of SI attempts in 2012 and 2014 with medication overdose who presents emergency department via EMS coming from home this afternoon on a section 12 signed by PD for patient being unable to care for self. Per EMS, PD found patient in his house with house in disarray. Patient was covered in feces. Patient reports his father approximately 2 months ago. Patient was in detox from [facility] over the last month and upon leaving detox a few days ago, a found out he will not be able to recover his father's body. He reports distress surrounding this situation and as a result, has been turning to alcohol. Reports 4-5 shots of hard liquor today. His last drink was around 1200 today. Admits to hx of withdrawal and withdrawal seizures. He denies any illicit substance use. Denies SI or HI. Patient tells me that he tested positive for C diff approximately 1 month ago and is currently on oral vancomycin for this. He tells me that he has approximately 5 days left of this prescription. At present, his main complaint is sacral pain secondary to chronic sacral wound. He reports treatment for this with morphine in the past. He has not had morphine in 2-3 days. He also endorses nausea and vomiting which he attributes to his new lexapro prescription that was started this week. He reports compliance with all home medications. Related Data Home Medications ?Medication ?Instructions ?Recorded ?Confirmed atorvastatin 40 mg tablet 40 mg PO DAILY 02/02/25 02/02/25 escitalopram oxalate 10 mg tablet 10 mg PO DAILY 02/02/25 02/02/25 glipizide 5 mg tablet 5 mg PO DAILY 02/02/25 02/02/25 lisinopril 5 mg tablet 5 mg PO DAILY 02/02/25 02/02/25 morphine 15 mg immediate release 15 mg PO Q8H PRN pain 02/02/25 02/02/25 tablet pregabalin 225 mg capsule 225 mg PO BID 02/02/25 02/02/25 quetiapine 300 mg tablet 300 mg PO BEDTIME 02/02/25 02/02/25 Previous Rx's ?Medication ?Instructions ?Recorded cephalexin 500 mg capsule 500 mg PO Q8H 7 days #21 caps 11/03/20 doxycycline monohydrate 100 mg 100 mg PO BID 7 days #14 caps 11/03/20 capsule Allergies Allergy/AdvReac Type Severity Reaction Status Date / Time baclofen Allergy Hives Verified 02/02/25 15:58 escitalopram [From Lexapro] Allergy Vomiting Verified 02/02/25 15:58 lithium Allergy Unresponsiv Verified 02/02/25 15:58 e metformin Allergy Unknown Verified 02/02/25 15:58 sulfamethoxazole Allergy Hives Verified 02/02/25 15:58 [From Bactrim] trimethoprim [From Bactrim] Allergy Hives Verified 02/02/25 15:58 Review of Systems Review of Systems: Constitutional: No fever, chills, fatigue, night sweats, weight changes ENT/Mouth: No ear pain, hearing loss, nasal congestion, sinus pain, rhinorrhea, sore throat Eyes: No eye pain, swelling, redness, vision changes, discharge Cardio: No chest pain, palpitations, MOSE[place], orthopnea, peripheral edema Pulm: No SOB, cough, sputum, wheezing, dyspnea, hemoptysis GI: No nausea, vomiting, hematemesis, abdominal pain, diarrhea, constipation, hematochezia, melena : No irregular bleeding, dysuria, frequency, urgency, hesitancy, hematuria, flank pain, urinary flow changes, urinary incontinence or retention MSK: No back pain, neck pain, joint pain, myalgias, +sacral pain Skin: No lesions, rashes Neuro: No weakness, numbness, paresthesias, LOC, dizziness, headache Psych: No anxiety/panic, SI/HI, AH/VH, +depression All other systems reviewed and are negative. [facility] Past Medical History Attestation statement: The following information was validated with the patient. Source: old records reviewed and nursing notes reviewed Medical History Aftercare following right hip joint replacement surgery Bipolar disorder PTSD (post-traumatic stress disorder) Sacral decubitus ulcer Peripheral neuropathy Non-insulin dependent type 2 diabetes mellitus Guillain-Celina Surgical History History of total hip replacement Hx of right BKA Social History Social History Household Members: None Housing: House Do you presently have visiting nurse or other home services: No Alcohol intake: current Alcohol intake frequency: 3 or more drinks per day Alcohol type: hard liquor Comment: stand pivot to luz marina avila Patient Tobacco Use Status: Current everyday Tobacco user Tobacco use type: Cigarette Cigarette Packs Per Day: 1 Cigarettes Per Day: 20.0 Years Smoked: 29 years Second Hand Smoke Exposure: No Physical Exam ED Vital Signs: Vital Signs - 24 hr 02/02/25 15:41 02/02/25 16:15 02/02/25 18:20 Temperature 97.7 F Pulse Rate 117 H 120 H Respiratory Rate 17 22 H Blood Pressure 130/91 H 130/66 Pulse Oximetry 94 96 Oxygen Delivery Method Room Air Room Air Room Air 02/02/25 18:50 02/02/25 19:20 Temperature Pulse Rate 130 H 130 H Respiratory Rate 22 H 22 H Blood Pressure 135/90 H 121/78 Pulse Oximetry 97 97 Oxygen Delivery Method Room Air Room Air BMI result Body Mass Index 34.7 Patient is tachycardic and hypertensive, afebrile General: Well appearing, in no acute distress. Skin: Warm, dry, intact. No rashes or lesions. Head: Normocephalic, atraumatic. EENT: Hearing is intact b/l. Conjunctiva clear. Sclera is anicteric. PERRLA. EOM intact. Moist mucous membranes.? Neck: Supple without LAD Cardiac: Chest wall symmetric. RRR Lungs: Normal respiratory effort without accessory muscle use. CTA bilaterally. Abdomen: soft, non-tender, non-distended. No rebound tenderness or guarding. Positive BS x4. Back: No midline spinous tenderness or step-off deformity. See photo of sacrum below. chronic appearing sacral ulcer encompassing rectum. no blanching erythema. no warmth. dried fecal material around wound. small area of purulent drainage to 10 o'clock. no expressible drainage or palpable fluctuance. TTP. Ext: right BKA. see photo below of LLE. Open wound to anterior aspect of left knee, draining clear discharge. Tender to palpation without palpable fluctuance. Full ROM intact to left knee. Neuro: AOx3. Normal speech. CN 2-12 grossly intact Course Course Course Narrative: 1819 -- CBC without leukocytosis or left shift. No anemia. H&H stable. random glucose 132. Liver function around baseline. Elevated anion gap to 22. ethanol level 207. I received critical lactic of 5.5. It is likely that this is elevated due to acute alcohol intoxication however I am also considering infection. will add on VBG. Sepsis protocol initiated. Sepsis bolus fluids ordered. Cefepime and vancomycin ordered. Toradol ordered for pain. blood cultures pending. > CT a/p pending > xrs left foot and knee pending 1857 -- Patient stable at the end of my shift. sign out given to Uriel PHILIPPE pending scans and likely admission. Reevaluation(s) Reevaluation #1: patient received in sign-out at change of shift pending imaging. X-ray of the foot shows osteomyelitis of the foot and his CT scan of the abdomen pelvis shows likely chronic osteomyelitis with a diarrheal disease. The patient is currently being treated for C diff. discussed with the hospitalist who will admit the patient Time: 20:25 Medications Administered Generic Name Dose Route Start Last Admin Trade Name Freq PRN Reason Stop Dose Admin Enoxaparin Sodium 40 mg 02/02/25 22:00 02/03/25 21:51 Enoxaparin Sodium 40 Mg/0.4 Ml Syringe SUBCUT 40 mg Q24H CHERISE Administration Escitalopram Oxalate 10 mg 02/03/25 09:00 02/03/25 08:18 Escitalopram Oxalate 10 Mg Tablet PO 10 mg DAILY CHERISE Administration Hydromorphone HCl 1 mg 02/02/25 21:18 02/04/25 05:33 Hydromorphone Hcl 1 Mg/Ml Syringe IVPUSH 1 mg Q4H PRN Administration Pain, Severe (Pain Scale 7-10) Protocol Piperacillin Sod/Tazobactam 100 mls @ 200 mls/hr 02/02/25 22:00 02/04/25 05:57 Sod 4.5 gm/ Sodium Chloride IV Infused Q6H CHERISE Infusion Vancomycin HCl 1,500 mg/ 500 mls @ 333.333 mls/hr 02/03/25 20:00 02/04/25 05:51 Sodium Chloride IV 333.33 mls/hr Q8H CHERISE Administration Insulin Human Lispro 0 unit 02/03/25 07:30 02/03/25 21:20 Insulin Lispro 100 Unit/Ml 3 Ml Vial SUBCUT 2 unit QIDACHS [facility] Administration Protocol Lisinopril 5 mg 02/03/25 09:00 02/03/25 08:18 Lisinopril 5 Mg Tablet PO 5 mg DAILY CHERISE Administration Protocol Phenobarbital 60 mg 02/03/25 21:00 02/03/25 20:45 Phenobarbital 30 Mg Tablet PO 02/05/25 09:01 60 mg BID CHERISE Administration Pregabalin 225 mg 02/02/25 21:30 02/03/25 20:45 Pregabalin 75 Mg Capsule PO 225 mg BID CHERISE Administration Quetiapine Fumarate 300 mg 02/02/25 21:30 02/03/25 20:46 Quetiapine Fumarate 300 Mg Tablet PO 300 mg BEDTIME CHERISE Administration Sodium Chloride 3 ml 02/03/25 00:00 02/03/25 22:43 0.9 % Sodium Chloride Flush 3 Ml Syringe IVFLUSH 3 ml QSHIFT [facility] Administration Thiamine HCl 100 mg 02/03/25 09:00 02/03/25 08:18 Thiamine Hcl 100 Mg Tablet PO 100 mg DAILY CHERISE Administration Vancomycin HCl 125 mg 02/02/25 22:00 02/04/25 05:10 Vancomycin Hcl 125 Mg Capsule PO 125 mg Q6H CHERISE Administration Discontinued Medications Generic Name Dose Route Start Last Admin Trade Name Cameronq PRN Reason Stop Dose Admin Hydromorphone HCl 1 mg 02/02/25 20:19 02/02/25 20:33 Hydromorphone Hcl 1 Mg/Ml Syringe IVPUSH 02/02/25 20:20 1 mg ONCE ONE Administration Protocol Cefepime HCl 2 gm in 50 mls @ 100 mls/hr 02/02/25 17:53 02/02/25 19:38 Maxipime IV 02/02/25 18:22 Infused ONCE ONE Infusion Vancomycin HCl 2,000 mg in 500 mls @ 250 mls/hr 02/02/25 18:20 02/02/25 22:34 Vancomycin/Ns IV 02/02/25 20:19 Infused ONCE ONE Infusion Sodium Chloride 3,674.1 mls @ 3,674.1 mls/hr 02/02/25 18:22 02/03/25 00:45 Ns 30 ml/kg infuse over 1 hr (3674.1 ml) 02/02/25 19:21 Infused IV Infusion .Q1H STA Thiamine HCl 200 mg/ Sodium 102 mls @ 204 mls/hr 02/02/25 21:17 02/03/25 13:17 Chloride IV 02/02/25 21:46 Infused ONCE ONE Infusion Vancomycin HCl 1,500 mg/ 500 mls @ 333.333 mls/hr 02/03/25 08:00 02/03/25 10:17 Sodium Chloride IV Infused Q12H CHERISE Infusion Insulin Human Lispro 0 unit 02/03/25 07:30 02/03/25 07:53 Insulin Lispro 100 Unit/Ml 3 Ml Vial SUBCUT Not Given QIDACHS [facility] Protocol Iohexol 85 ml 02/02/25 19:02 02/02/25 19:02 Iohexol 350 Mg/Ml 100 Ml Infus..Btl IV 02/02/25 19:03 85 ml ONCE ONE Administration Ketorolac Tromethamine 30 mg 02/02/25 16:54 02/02/25 17:48 Ketorolac Tromethamine 30 Mg/Ml Vial IVPUSH 02/02/25 16:55 30 mg ONCE ONE Administration Phenobarbital Sodium 329 mg 02/02/25 21:00 02/02/25 21:23 Phenobarbital Sodium 130 Mg/Ml Im Once IM 02/02/25 21:01 329 mg ONCE ONE Administration Phenobarbital Sodium 247 mg 02/03/25 00:00 02/03/25 03:34 Phenobarbital Sodium 130 Mg/Ml Vial Im Q3hx2 IM 02/03/25 03:01 247 mg Q3H CHERISE Administration Phenobarbital Sodium 130 mg 02/03/25 05:06 02/03/25 05:14 Phenobarbital Sodium 130 Mg/Ml Vial IM 02/03/25 05:07 130 mg ONCE ONE Administration Phenobarbital Sodium 329 mg 02/03/25 12:32 02/03/25 13:11 Phenobarbital Sodium 130 Mg/Ml Vial IM 02/03/25 12:33 329 mg STAT STA Administration Medical Decision Making Medical Decision Making MDM Narrative: 40 year old male with pmhx significant for Guillain-Celina syndrome wheelchair-bound, right BKA, chronic peripheral neuropathy, chronic sacral decubitus ulcers,, type 2 diabetes, hypertension, right hip osteoarthritis s/p replacement, multiple compression fractures, osteoporosis, PTSD, depression, bipolar disorder, history of SI attempts in 2012 and 2014 with medication overdose who presents emergency department via EMS coming from home this afternoon on a section 12 signed by PD for patient being unable to care for self. Differential diagnosis includes sacral ulcer, osteomyelitis, abscess, fistula, failure to thrive, depression, polysubstance abuse, ETOH intoxication, ETOH withdrawal Plan for labs, lactic/blood cultures, imaging, CIWA, re-evaluation Differential Diagnosis Differential Diagnoses: The differential diagnosis associated with the presentation includes as above. Admission/Observation Consideration of admission/observation: Escalation of care including admission/observation considered Lab Data MDM Lab Attestation statement: I reviewed the patient's lab results. as above. 02/04/25 05:42 02/04/25 05:42 Labs: Lab Results 02/02/25 02/02/25 02/02/25 Range/Units 17:39 17:46 20:20 WBC 10.0 (4.8-10.8) X10*3/uL RBC 5.26 (4.60-5.80) X10*6/uL Hgb 15.5 (14.0-18.0) g/dl Hct 45.6 (42.0-52.0) % MCV 86.7 (80.0-98.0) fL MCH 29.5 (27.0-33.0) pg MCHC 34.0 (31.0-36.0) g/dl RDW 18.7 H (11.0-16.0) % Plt Count 321 (160-400) X10*3/uL MPV 9.9 (9.4-12.4) fL Immature Gran % (Auto) 0.6 H (0.0-0.4) % Neut % (Auto) 66.4 (45-73) % Lymph % (Auto) 24.8 (20-40) % Ray % (Auto) 7.3 (2-11) % Eos % (Auto) 0.5 (0-4) % Baso % (Auto) 0.4 (0-2) % Lymph # (Auto) 2.5 (1.2-4.9) X10*3/uL Ray # (Auto) 0.7 (0.1-1.2) X10*3/uL Eos # (Auto) 0.1 (0.0-0.4) X10*3/uL Baso # (Auto) 0.0 (0.0-0.2) X10*3/uL Abs Immat Gran (auto) 0.06 H (0.00-0.03) X10*3/uL Absolute Neuts (auto) 6.7 (2.0-8.3) x10*3/uL Absolute Nucleated RBC 0.000 (0.0-0.012) X10*3/uL Nucleated RBC % (auto) 0.0 (0.0-0.2) /100WBC Sodium 140 (135-145) mmol/L Potassium 4.5 D (3.3-5.1) mmol/L Chloride 104 (96-108) mmol/L Carbon Dioxide 19 L (22-29) mmol/L Anion Gap 22 H (12-20) BUN 15 (9-16) mg/dL Creatinine 0.57 (0.5-1.4) mg/dL Estim Creat Clear Calc 234.7 Estimated GFR > 60 Random Glucose 132 H (60-115) mg/dL Lactic Acid 5.5 H* (0.5-2.0) mmol/L Lactic Acid F/U @ 2Hr 6.1 H* (0.5-2.0) mmol/L Calcium 9.1 D (8.4-10.2) mg/dL Magnesium 2.1 (1.6-2.6) mg/dL Total Bilirubin 0.6 (0.0-1.0) mg/dL AST 56 H (5-37) U/L ALT 85 H (0-40) U/L Alkaline Phosphatase 99 (39-117) U/L Total Creatine Kinase 33 L (38-174) U/L Total Protein 7.4 (6.5-8.0) g/dL Albumin 4.7 (3.5-5.0) g/dL Lipase 25 (8-78) U/L Hold Yellow Top See Note Salicylates < 5.0 L (15-30) mg/dL Acetaminophen < 3 (<30) mcg/mL Ethyl Alcohol 207 mg/dL Independent Interpretation I performed an independent interpretation of an: Plain X-Ray and CT Scan Interpretation: Chest x-ray without infiltrate or consolidation X-ray left foot X-ray left knee CT abdomen/pelvis Radiology Impression Discussion of test interpretation with radiology: I have reviewed the radiologist's reading. Radiologist Impression: Procedure(s): XR chest 2V Accession Number(s): [id number] cc: Physician,Unknown ; Yvette Mcnamara~ CLINICAL HISTORY: FTT, etoh, r o aspiration Chest Radiographs, 2 views Comparison: None Findings: No cardiomegaly. Normal mediastinal contours. No pneumothorax. No opacity. No pleural effusion. Normal upper abdomen. No acute fracture. Impression: No acute findings. No radiographic evidence of aspiration pneumonia. This document has been electronically signed by: Maria Luisa aYp MD on 02/02/2025 17:19:03 Independent Historian Clinical information obtained from an independent historian. History obtained from or confirmed by: EMS External Record Review External record reviewed: Inpatient record Prescription Management I considered prescription management with: Pain Medication and Antibiotic Chronic Conditions Patient?s care impacted by: Diabetes and Other (MDD ) Social Determinants Patient?s care significantly limited by Social Determinants of Health including: Alcoholism and drug addiction in family and Other Social Determinant of Health Critical Care Time Critical Care Time Critical Care Time: Yes Total Critical Care Time: 35 Attestation: Critical care time in the amount of 35 minutes has been provided to the patient in terms of direct patient care, frequent reevaluation, consultation with hospitalist, review and interpretation of medical data and results, and management of potentially life-threatening conditions. This is all outside of any medical procedures. Discharge Plan Discharge Clinical Impression: Metabolic acidosis, Decubitus ulcer, Osteomyelitis of foot, Sepsis Patient Disposition: Admitted As Inpatient Interventions: [place]-Suicide Risk Severity Scale Last Done: 02/04/25 00:00 Admission Worksheet (ED) Last Done: 02/03/25 11:42 Discharge Date/Time: 02/03/25 12:32
[2025-02-02 17:44] LABS: MANUAL DIFF FLAG NO
[2025-02-02 17:45] LABS: Basophils Percent Auto 0.4 % (0-2); Eosinophils Absolute Auto 0.1 X10*3/uL (0.0-0.4); Eosinophils Percent Auto 0.5 % (0-4); Hematocrit 45.6 % (42.0-52.0); Hemoglobin 15.5 g/dl (14.0-18.0); Imm Gran Abs Auto 0.06 X10*3/uL (0.00-0.03); Imm Gran Pct Auto 0.6 % (0.0-0.4); Lymphocytes Absolute Auto 2.5 X10*3/uL (1.2-4.9); Lymphocytes Percent Auto 24.8 % (20-40); Mean Corpuscular Hemoglobin 29.5 pg (27.0-33.0); Mean Corpuscular Volume 86.7 fL (80.0-98.0); Mean Platelet Volume 9.9 fL (9.4-12.4); Monocytes Absolute Auto 0.7 X10*3/uL (0.1-1.2); Monocytes Percent Auto 7.3 % (2-11); Neutrophils Absolute Auto 6.7 x10*3/uL (2.0-8.3); Neutrophils Percent Auto 66.4 % (45-73); Platelet Count 321 X10*3/uL (160-400); Red Blood Count 5.26 X10*6/uL (4.60-5.80); Red Cell Distribution Width 18.7 % (11.0-16.0)
[2025-02-02] MEDS: Ketorolac Tromethamine 30 MG/ML VIAL IVPUSH (17:48)
[2025-02-02 18:00] LABS: Ethanol 207 mg/dL
[2025-02-02 18:06] LABS: Alanine Aminotransferase 85 U/L (0-40); Albumin Level 4.7 g/dL (3.5-5.0); Alkaline Phosphatase 99 U/L (39-117); Anion Gap 22 (12-20); Aspartate Amino Transferase 56 U/L (5-37); Bilirubin Total 0.6 mg/dL (0.0-1.0); Blood Urea Nitrogen 15 mg/dL (9-16); Calcium 9.1 mg/dL (8.4-10.2); Carbon Dioxide 19 mmol/L (22-29); Chloride 104 mmol/L (96-108); Creatinine Clr Calc Pharmacy 234.7; Estimated Glomerular Filt Rate > 60; Glucose Random 132 mg/dL (60-115); Lipase 25 U/L (8-78); Magnesium 2.1 mg/dL (1.6-2.6); Potassium 4.5 mmol/L (3.3-5.1); Sodium 140 mmol/L (135-145); Total Protein 7.4 g/dL (6.5-8.0)
[2025-02-02 18:07] LABS: Acetaminophen LAB < 3 mcg/mL (<30); Lactic Acid 5.5 mmol/L (0.5-2.0); Salicylate < 5.0 mg/dL (15-30)
[2025-02-02] MEDS: iohexoL 350 MG/ML 100 ML INFUS..BTL 85 ML IV (19:02)
[2025-02-02] MEDS: 0.9 % Sodium Chloride 3,674.1 ML 3674.1 ML IV (19:03)
[2025-02-02] MEDS: cefEPime HCl/D5W 2 GM/50 ML PIGGYBACK IV (19:08)
--- NOTE | 2025-02-02 19:39 | PC.NURSE ---
RUE USIV is not flushing, fluids and 1st abx paused. PA aware, awaiting 2nd USIV insertion.
[2025-02-02 19:42] LABS: Reflex Lactate? Lactic Acid Added
--- NOTE | 2025-02-02 20:16 | PC.NURSE ---
CARLA ROBERSON placed by Babs BAH. IVF and abx restarted at this time
[2025-02-02 20:29] LABS: VBG Base Excess -2.8 mmol/L; VBG HCO3 21 mmol/L (22-26); VBG pCO2 34 mmHg; VBG pH 7.39 (7.32-7.43); VBG pO2 62 mmHg
[2025-02-02 20:29] LABS: Venous Blood Gas Refer to POC result
[2025-02-02] MEDS: HYDROmorphone HCl 1 MG/ML SYRINGE IVPUSH ×2 (20:33→23:32)
[2025-02-02] MEDS: vancomycin/NS 2,000 MG/500 ML PLAST..BAG 250 MG IV (20:34)
[2025-02-02 20:44] LABS: ~Lactic Acid-LAB USE ONLY 6.1 mmol/L (0.5-2.0)
--- NOTE | 2025-02-02 20:48 | MHC.CARE ---
Karen from [facility] called care team to offer some collateral information as she often works with this Pt in the community. She reports that Pt's father about 2 weeks ago. She met with Pt on Wednesday01/26/25 and sent him for a medical eval but when he was there (unknown where) it seems they thought he needed mental health treatment and was inpatient at [facility]. He just discharged from there yesterday (02/01/25). She reports that [facility] staff was attempting to get into contact with Pt today, however were unable too. Karen expresses, he's probably intoxicated as he drinks a lot. His depression and inability to care for himself are mostly caused by his alcohol use. Karen strongly expresses the belief that Pt may benefit more from a section 35 by PD than [facility] if care team is to see him while at [facility]. When discharged, Karen reports that [facility] is willing to F/U with Pt in the community.
[2025-02-02 21:06] LABS: Appearance Urine Clear; Color Urine Dark Yellow; Glucose Urine UA Negative (Negative); Leukocyte Esterase Urine Negative (Negative); Nitrite Urine Negative (Negative); PH 5.5 (5.0-9.0); Specific Gravity - Urine >= 1.030 (1.005-1.025); Urine Blood Negative (Negative); Urine Ketones Trace mg/dL (Negative); Urine Protein Trace mg/dL (Neg-Trace)
--- NOTE | 2025-02-02 21:17 | PHA.MEDREC ---
Addendum entered by Jose Easley [facility] 02/02/25 21:59: MED REC CHECKED BY [facility] Original Note: Pharmacy Consult ? Medication Reconciliation Pharmacy has completed the medication reconciliation. Spoke to patient to confirm med list. Patient states he is no longer taking Trazodone 50 mg. Patient states he is still taking Keflex 500 mg and Doxycycline mono 100 mg, however there aren't any claims. Patient states he was discharge with them from [facility]. Patient confirmed he is still taking Lisinopril 5 mg daily, however last fill date 07/31/24 for 90 days and Atorvastatin 40 mg , however last fill date 07/31/24 for 90 days. Patient last had his medications yesterday.
--- NOTE | 2025-02-02 21:18 | PM.IMHP ---
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 Patient states he was in detox about a month ago. He found out that his father at [facility] and he would not be able to recover his father's body so he was depressed and started drinking liquor every day. His last drink was on the day of presentation. Does have history of alcohol withdrawal. No history of alcohol withdrawal seizures. Patient complaining of lower back pain due to his sacral wound. Patient states he is on p.o. vancomycin for C diff and thinks he has a few doses left. He is wheelchair-bound. He does report chills but no documented fever, no chest pain, no palpitations, shortness of breath, abdominal pain. No SI or HI at the time of admission. In the emergency department, imaging with 3rd toe osteomyelitis and septic arthritis. Patient was initiated on phenobarb protocol for alcohol withdrawal. [facility] Medical History Guillain-Independence Non-insulin dependent type 2 diabetes mellitus Peripheral neuropathy Sacral decubitus ulcer PTSD (post-traumatic stress disorder) Bipolar disorder Surgical History Hx of right BKA Social History Alcohol intake: current Alcohol intake frequency: 3 or more drinks per day Alcohol type: hard liquor Smoked in Last 30 Days: Yes Use of substances other than those prescribed or required for medical reasons: No Advance Directives: No Advance Directives Information Provided: Yes Do you have a plan to hurt others: No Plan Meds Allergies Allergy/AdvReac Type Severity Reaction Status Date / Time baclofen Allergy Hives Verified 02/02/25 15:58 escitalopram [From Lexapro] Allergy Vomiting Verified 02/02/25 15:58 lithium Allergy Unresponsiv Verified 02/02/25 15:58 e metformin Allergy Unknown Verified 02/02/25 15:58 sulfamethoxazole Allergy Hives Verified 02/02/25 15:58 [From Bactrim] trimethoprim [From Bactrim] Allergy Hives Verified 02/02/25 15:58 Active Medications: Current Medications Piperacillin Sod/Tazobactam (Sod 4.5 gm/ Sodium Chloride) 100 mls @ 200 mls/hr IV Q6H CHERISE Thiamine HCl 200 mg/ Sodium (Chloride) 102 mls @ 204 mls/hr IV ONCE ONE Stop: 02/02/25 21:46 Pharmacy Consult (Consult Rx Etoh Phenob Im/Po) 1 each MISCELLANE ONCE PRN; Protocol PRN Reason: Consult order Pharmacy Consult (Consult Rx Vancomycin Dosing) 1 each MISCELLANE DAILY PRN PRN Reason: Consult order Phenobarbital (Phenobarbital 30 Mg Tablet) 60 mg PO BID [facility] Stop: 02/05/25 09:01 Phenobarbital (Phenobarbital 30 Mg Tablet) 30 mg PO BID [facility] Stop: 02/07/25 09:01 Phenobarbital (Phenobarbital 30 Mg Tablet) 30 mg PO DAILY [facility] Stop: 02/09/25 09:01 Phenobarbital Sodium (Phenobarbital Sodium 130 Mg/Ml Vial Im Q3hx2) 247 mg IM Q3H [facility] Stop: 02/03/25 03:01 Home Medications ?Medication ?Instructions ?Recorded ?Confirmed ?Last Taken ?Type atorvastatin 40 mg tablet 40 mg PO DAILY 02/02/25 02/02/25 02/01/25 History escitalopram oxalate 10 mg tablet 10 mg PO DAILY 02/02/25 02/02/25 02/01/25 History glipizide 5 mg tablet 5 mg PO DAILY 02/02/25 02/02/25 02/01/25 History lisinopril 5 mg tablet 5 mg PO DAILY 02/02/25 02/02/25 02/01/25 History morphine 15 mg immediate release 15 mg PO Q8H PRN pain 02/02/25 02/02/25 Unknown History tablet pregabalin 225 mg capsule 225 mg PO BID 02/02/25 02/02/25 02/01/25 History quetiapine 300 mg tablet 300 mg PO BEDTIME 02/02/25 02/02/25 02/01/25 History Physical Exam Vital Signs and Narrative: Vital Signs: Last Vital Signs Temp 97.7 F 02/02/25 16:15 Pulse 130 H 02/02/25 19:20 Resp 22 H 02/02/25 19:20 BP 121/78 02/02/25 19:20 Pulse Ox 97 02/02/25 19:20 O2 Del Method Room Air 02/02/25 19:20 BMI result Body Mass Index 34.7 Middle-aged male lying in bed in no distress Neck supple, no JVD Tachycardic with a regular rhythm, S1-S2 heard Regular breath sounds bilaterally, no wheezing or crackles appreciated Abdomen soft nontender, no guarding, no rigidity Patient is awake, alert and oriented to self, place, time and person ; no focal motor deficit Psych: Normal mood Chronic sacral ulcer (as pictured below), right BKA, left 3rd toe with erythema, warmth (as pictured below) Skin: Other: Results Labs 02/02/25 17:39 02/02/25 17:39 Labs: Laboratory Results - last 24 hr 02/02/25 02/02/25 02/02/25 17:39 17:46 20:20 MCV 86.7 MCH 29.5 MCHC 34.0 RDW 18.7 H Plt Count 321 MPV 9.9 Immature Gran % (Auto) 0.6 H Neut % (Auto) 66.4 Lymph % (Auto) 24.8 Bradley % (Auto) 7.3 Eos % (Auto) 0.5 Baso % (Auto) 0.4 Lymph # (Auto) 2.5 Bradley # (Auto) 0.7 Eos # (Auto) 0.1 Baso # (Auto) 0.0 Abs Immat Gran (auto) 0.06 H Absolute Neuts (auto) 6.7 Absolute Nucleated RBC 0.000 Nucleated RBC % (auto) 0.0 VBG pH VBG pCO2 VBG pO2 VBG HCO3 VBG O2 Saturation VBG Base Excess Anion Gap 22 H Estim Creat Clear Calc 234.7 Estimated GFR > 60 Random Glucose 132 H Lactic Acid 5.5 H* Lactic Acid F/U @ 2Hr 6.1 H* Calcium 9.1 D Magnesium 2.1 Total Bilirubin 0.6 AST 56 H ALT 85 H Alkaline Phosphatase 99 Total Creatine Kinase 33 L Total Protein 7.4 Albumin 4.7 Lipase 25 Hold Yellow Top See Note Salicylates < 5.0 L Acetaminophen < 3 Ethyl Alcohol 207 02/02/25 20:24 MCV MCH MCHC RDW Plt Count MPV Immature Gran % (Auto) Neut % (Auto) Lymph % (Auto) Bradley % (Auto) Eos % (Auto) Baso % (Auto) Lymph # (Auto) Bradley # (Auto) Eos # (Auto) Baso # (Auto) Abs Immat Gran (auto) Absolute Neuts (auto) Absolute Nucleated RBC Nucleated RBC % (auto) VBG pH 7.39 VBG pCO2 34 VBG pO2 62 VBG HCO3 21 L VBG O2 Saturation 79.0 VBG Base Excess -2.8 Anion Gap Estim Creat Clear Calc Estimated GFR Random Glucose Lactic Acid Lactic Acid F/U @ 2Hr Calcium Magnesium Total Bilirubin AST ALT Alkaline Phosphatase Total Creatine Kinase Total Protein Albumin Lipase Hold Yellow Top Salicylates Acetaminophen Ethyl Alcohol Assessment and Plan (1) Osteomyelitis of foot: Status: Acute (2) Decubitus ulcer: Status: Acute (3) Alcohol withdrawal: Status: Acute (4) Lactic acidosis: Status: Acute Plan This is a 40-year-old male with 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 #. Sepsis due to acute osteomyelitis of left proximal phalanx, 3rd toe: Imaging concerning for osteomyelitis and septic arthritis. Initiated broad-spectrum empiric IV antibiotics. Consulted Infectious Disease. Resuscitated with IV crystalloids. Lactic acid and blood culture obtained #. C diff: On oral vancomycin. Appreciate ID #. Alcohol use disorder with concerns for withdrawal: Initiated phenobarb protocol in the ER. Monitor CIWA. Initiated thiamine. Consulted Addiction Team. #. Acute lactic acidosis due to alcohol use and liver disease #. Large sacral decubitus ulcer/chronic osteomyelitis of sacrum and coccyx/chronic osteomyelitis of right ischial tuberosity with ischial decubitus ulcer: Consulting general surgery for possible debridement. Consulted Wound Care #. Left-sided adrenal masses: Outpatient follow-up #. Liver cirrhosis: Not on diuretics or lactulose. Obtaining ammonia. Will need GI follow-up #. Peripheral vascular disease: On high-intensity statin. Not on antiplatelet agent #. Peripheral neuropathy: On Lyrica #. Mood disorder: Continue home mood stabilizers #. Jmp-jhkqizt-cnmbfsnfw diabetes mellitus: Initiating Accu-Cheks with sliding scale insulin #. Hypertension: On lisinopril #. Section 12 by PD: Care team once medically stable DVT prophylaxis: Lovenox Full code Admit as inpatient and will require two night minimum hospital stay for IV antibiotics, management of alcohol withdrawal (as above), which is not possible in a lesser acute setting. Quality Stroke Does the patient have a stroke diagnosis?: No VTE Prior VTE?: No VTE Risk Level:: Medical - moderate - high VTE Device Contraindication: Treatment Not Indicated VTE Drug Contraindication: N/A - Med Ordered
[2025-02-02] MEDS: PHENobarbitaL sodium 130 MG/ML IM ONCE 329 MG IM (21:23)
[2025-02-02 21:31] LABS: Amphetamine Screen Urine Not Detected (Not Detect); Barbiturates, Urine POSITIVE (Not Detect); Benzodiazepines Screen Urine Not Detected (Not Detect); Buprenorphine Scr Not Detected (Not Detect); Cannabinoid Screen Urine Not Detected (Not Detect); Cocaine Screen Urine Not Detected (Not Detect); Fentanyl, urine Not Detected (Not Detect); Methadone Screen, Urine Not Detected (Not Detect); Opiate Screen Urine Not Detected (Not Detect); Oxycodone Screen Urine Not Detected (Not Detect); Phencyclidine Screen Urine Not Detected (Not Detect)
[2025-02-02 22:25] LABS: Reflex Lactate? 2 Y
--- NOTE | 2025-02-02 22:38 | PC.NURSE ---
(@[id number]) pharmacy contacted for pregabalin and seroquel dose
[2025-02-02] MEDS: Piperacillin Sodium/Tazobactam 4.5 GM in 0.9 % Sodium Chloride 100 ML IV (22:43)
[2025-02-02] MEDS: Thiamine HCL 200 MG in 0.9 % Sodium Chloride 100 ML 204 MG IV (22:47)
[2025-02-02] MEDS: QUEtiapine Fumarate 300 MG TABLET PO (22:54)
[2025-02-02 22:57] LABS: ~Lactic Acid-LAB USE ONLY 3.6 mmol/L (0.5-2.0)
[2025-02-02] MEDS: Enoxaparin Sodium 40 MG/0.4 ML SYRINGE SUBCUT (23:19)
[2025-02-02] MEDS: Pregabalin 75 MG CAPSULE 225 MG PO (23:32)
[2025-02-02] MEDS: vancomycin HCL 125 MG CAPSULE PO (23:32)
[2025-02-02] MEDS: PHENobarbitaL sodium 130 MG/ML VIAL IM Q3Hx2 247 MG IM (23:38)
[2025-02-03] VITALS (11 sets, daily range): BP systolic 95–167; BP diastolic 47–98; PULSE 86–132; RESP 16–20; TEMP 36.2–36.8; O2SAT 95–100
[2025-02-03] MEDS: PHENobarbitaL sodium 130 MG/ML VIAL IM Q3Hx2 247 MG IM (03:34)
[2025-02-03] MEDS: Piperacillin Sodium/Tazobactam 4.5 GM in 0.9 % Sodium Chloride 100 ML IV ×4 (03:34→22:42)
[2025-02-03] MEDS: HYDROmorphone HCl 1 MG/ML SYRINGE IVPUSH ×5 (03:35→21:22)
[2025-02-03] MEDS: vancomycin HCL 125 MG CAPSULE PO ×4 (03:35→21:50)
[2025-02-03] MEDS: PHENobarbitaL sodium 130 MG/ML VIAL IM (05:14)
[2025-02-03 06:41] LABS: MANUAL DIFF FLAG NO
[2025-02-03 06:52] LABS: Ammonia 53 umol/L (13-55)
[2025-02-03 07:17] LABS: Basophils Percent Auto 0.3 % (0-2); Eosinophils Absolute Auto 0.1 X10*3/uL (0.0-0.4); Eosinophils Percent Auto 1.5 % (0-4); Hematocrit 32.6 % (42.0-52.0); Imm Gran Abs Auto 0.03 X10*3/uL (0.00-0.03); Imm Gran Pct Auto 0.4 % (0.0-0.4); Lymphocytes Absolute Auto 2.1 X10*3/uL (1.2-4.9); Lymphocytes Percent Auto 28.9 % (20-40); Mean Corpuscular HGB Conc 33.7 g/dl (31.0-36.0); Mean Corpuscular Hemoglobin 29.7 pg (27.0-33.0); Mean Corpuscular Volume 88.1 fL (80.0-98.0); Mean Platelet Volume 10.5 fL (9.4-12.4); Monocytes Percent Auto 13.3 % (2-11); Neutrophils Absolute Auto 4.1 x10*3/uL (2.0-8.3); Neutrophils Percent Auto 55.6 % (45-73); Platelet Count 169 X10*3/uL (160-400); Red Cell Distribution Width 17.9 % (11.0-16.0); White Blood Count 7.3 X10*3/uL (4.8-10.8)
[2025-02-03 07:20] LABS: Glucose, Whole Blood 121 mg/dL (60-115)
[2025-02-03 07:27] LABS: Anion Gap 11 (12-20); Blood Urea Nitrogen 14 mg/dL (9-16); Calcium 7.9 mg/dL (8.4-10.2); Carbon Dioxide 23 mmol/L (22-29); Chloride 106 mmol/L (96-108); Estimated Glomerular Filt Rate > 60; Glucose Random 128 mg/dL (60-115); Potassium 3.5 mmol/L (3.3-5.1); Sodium 136 mmol/L (135-145)
[2025-02-03] MEDS: vancomycin HCL 1,500 MG in 0.9 % Sodium Chloride 500 ML 333.33 MG IV ×2 (08:17→20:48)
[2025-02-03] MEDS: Pregabalin 75 MG CAPSULE 225 MG PO ×2 (08:18→20:45)
[2025-02-03] MEDS: Thiamine HCL 100 MG TABLET PO (08:18)
[2025-02-03] MEDS: Escitalopram Oxalate 10 MG TABLET PO (08:18)
[2025-02-03] MEDS: lisinopriL 5 MG TABLET PO (08:18)
[2025-02-03] MEDS: 0.9 % Sodium Chloride Flush 3 ML SYRINGE IVFLUSH ×3 (08:21→22:43)
--- NOTE | 2025-02-03 08:41 | PC.NURSE ---
40 M presents to ED d/t ETOH and welfare check on patient in their home. Pt was not taking care of himself at home, recent loss of his father who was his shoer. A+Ox4, Amputation to R BKA and some digits missing on left foot, wheelchair at baseline. pt c/o 8/10 sacral pain, chronic. Denies n/v/c/d or abdominal pain. Pt on CIWA, last drink yesterday. RR even and unlabored. Pt denies SI/HI at this time. Calm, cooperative.
--- NOTE | 2025-02-03 08:51 | PC.NURSE ---
pharmacy called regarding duplicate insulin order and PO as well as IV vanco orders. Pharmacy acknowledged.
[2025-02-03 12:16] LABS: Glucose, Whole Blood 135 mg/dL (60-115)
[2025-02-03 12:43] LABS: Glucose, Whole Blood 133 mg/dL (60-115)
[2025-02-03] MEDS: PHENobarbitaL sodium 130 MG/ML VIAL 329 MG IM (13:11)
--- NOTE | 2025-02-03 13:24 | HO.PM.IMPN ---
Subjective Subjective Date of Service: 02/03/25 Interval History: Uneventful night however CIWA elevated this a.m.. Given initial dose volume phenobarb with good results Review of Systems Denies chest pain Denies shortness of breath Denies nausea vomiting diarrhea Denies fever chills Admits to sacral wound pain Physical Exam Vital Signs: Vital Signs: Last Vital Signs Temp 97.6 F 02/03/25 12:51 Pulse 86 02/03/25 12:51 Resp 18 02/03/25 12:51 BP 131/85 02/03/25 12:51 Pulse Ox 96 02/03/25 12:51 O2 Del Method Room Air 02/03/25 12:51 BMI result Body Mass Index 34.7 Const: Other: Awake alert no acute distress Resp: Other: Clear to auscultation bilaterally no rales rhonchi or wheezes Cardio: Other: No S4; positive S1-S2; no S3 murmurs rubs or gallops GI: Other: Soft nontender nondistended normoactive bowel sounds Skin: Other: See admission photos for details Extrem: Other: See admission photos for left foot/toe upgrade Objective Data Active Medications Acetaminophen (Acetaminophen 325 Mg Tablet) 650 mg PO Q6H PRN PRN Reason: Pain, Mild 1-3,fever,headache Calcium Carbonate (Calcium Carbonate 750 Mg Tab.Chew) 750 mg PO Q4H PRN PRN Reason: Heartburn Dextrose (Dextrose 50 % 25 Gm/50 Ml Syringe) 25 gm IVPUSH Q15M PRN; Protocol PRN Reason: per Hypoglycemia Standing Ord. Enoxaparin Sodium (Enoxaparin Sodium 40 Mg/0.4 Ml Syringe) 40 mg SUBCUT Q24H [facility] Last Admin: 02/02/25 23:19 Dose: 40 mg Documented By: JORGE-LEONARDO Escitalopram Oxalate (Escitalopram Oxalate 10 Mg Tablet) 10 mg PO DAILY [facility] Last Admin: 02/03/25 08:18 Dose: 10 mg Documented By: HERIBERTO Glucose (Glucose Gel 15 Gm Gel..Gram.) 15 gm PO Q15M PRN; Protocol PRN Reason: per Hypoglycemia Standing Ord. Hydromorphone HCl (Hydromorphone Hcl 1 Mg/Ml Syringe) 1 mg IVPUSH Q4H PRN; Protocol PRN Reason: Pain, Severe (Pain Scale 7-10) Last Admin: 02/03/25 12:22 Dose: 1 mg Documented By: LUIS Piperacillin Sod/Tazobactam (Sod 4.5 gm/ Sodium Chloride) 100 mls @ 200 mls/hr IV Q6H [facility] Last Infusion: 02/03/25 12:06 Dose: Infused Documented By: HERIBERTO Vancomycin HCl 1,500 mg/ (Sodium Chloride) 500 mls @ 333.333 mls/hr IV Q12H [facility] Last Infusion: 02/03/25 10:17 Dose: Infused Documented By: HERIBERTO Insulin Human Lispro (Insulin Lispro 100 Unit/Ml 3 Ml Vial) 0 unit SUBCUT QIDACHS [facility]; Protocol Last Admin: 02/03/25 12:32 Dose: Not Given Documented By: HERIBERTO Non-Admin Reason: poc 135 Lisinopril (Lisinopril 5 Mg Tablet) 5 mg PO DAILY [facility]; Protocol Last Admin: 02/03/25 08:18 Dose: 5 mg Documented By: HERIBERTO Magnesium Hydroxide (Milk Of Magnesia 30 Ml Oral.Susp) 30 ml PO DAILY PRN PRN Reason: Constipation Melatonin (Melatonin 3 Mg Tablet) 6 mg PO BEDTIME PRN PRN Reason: Insomnia Morphine Sulfate (Morphine Sulfate Immed Release 15 Mg Tablet) 15 mg PO Q8H PRN PRN Reason: Pain, Moderate(Pain Scale 4-6) Ondansetron HCl (Ondansetron Hcl 4 Mg/2 Ml Vial) 4 mg IVPUSH Q8H PRN PRN Reason: Nausea and Vomiting Pharmacy Consult (Consult Rx Etoh Phenob Im/Po) 1 each MISCELLANE ONCE PRN; Protocol PRN Reason: Consult order Pharmacy Consult (Consult Rx Vancomycin Dosing) 1 each MISCELLANE DAILY PRN PRN Reason: Consult order Phenobarbital (Phenobarbital 30 Mg Tablet) 60 mg PO BID [facility] Stop: 02/05/25 09:01 Phenobarbital (Phenobarbital 30 Mg Tablet) 30 mg PO BID [facility] Stop: 02/07/25 09:01 Phenobarbital (Phenobarbital 30 Mg Tablet) 30 mg PO DAILY [facility] Stop: 02/09/25 09:01 Pregabalin (Pregabalin 75 Mg Capsule) 225 mg PO BID [facility] Last Admin: 02/03/25 08:18 Dose: 225 mg Documented By: HERIBERTO Quetiapine Fumarate (Quetiapine Fumarate 300 Mg Tablet) 300 mg PO BEDTIME [facility] Last Admin: 02/02/25 22:54 Dose: 300 mg Documented By: DIANA Sodium Chloride (0.9 % Sodium Chloride Flush 3 Ml Syringe) 3 ml IVFLUSH QSHIFT [facility] Last Admin: 02/03/25 08:21 Dose: 3 ml Documented By: HERIBERTO Thiamine HCl (Thiamine Hcl 100 Mg Tablet) 100 mg PO DAILY [facility] Last Admin: 02/03/25 08:18 Dose: 100 mg Documented By: HERIBERTO Vancomycin HCl (Vancomycin Hcl 125 Mg Capsule) 125 mg PO Q6H [facility] Last Admin: 02/03/25 10:45 Dose: 125 mg Documented By: HERIBERTO Labs 02/03/25 06:36 02/03/25 06:36 Labs: Laboratory Results - last 24 hr 02/02/25 02/02/25 02/02/25 17:39 17:46 20:20 MCV 86.7 MCH 29.5 MCHC 34.0 RDW 18.7 H Plt Count 321 MPV 9.9 Immature Gran % (Auto) 0.6 H Neut % (Auto) 66.4 Lymph % (Auto) 24.8 Cecil % (Auto) 7.3 Eos % (Auto) 0.5 Baso % (Auto) 0.4 Lymph # (Auto) 2.5 Cecil # (Auto) 0.7 Eos # (Auto) 0.1 Baso # (Auto) 0.0 Abs Immat Gran (auto) 0.06 H Absolute Neuts (auto) 6.7 Absolute Nucleated RBC 0.000 Nucleated RBC % (auto) 0.0 VBG pH VBG pCO2 VBG pO2 VBG HCO3 VBG O2 Saturation VBG Base Excess Anion Gap 22 H Estim Creat Clear Calc 234.7 Estimated GFR > 60 POC Glucose Random Glucose 132 H Lactic Acid 5.5 H* Lactic Acid F/U @ 2Hr 6.1 H* Lactic Acid F/U @ 4Hr Calcium 9.1 D Magnesium 2.1 Total Bilirubin 0.6 AST 56 H ALT 85 H Alkaline Phosphatase 99 Ammonia Total Creatine Kinase 33 L Total Protein 7.4 Albumin 4.7 Lipase 25 Hold Yellow Top See Note Urine Color Urine Appearance Urine pH Ur Specific [place] Urine Protein Urine Glucose (UA) Urine Ketones Urine Blood Urine Nitrite Ur Leukocyte Esterase Salicylates < 5.0 L Urine Opiates Screen Ur Buprenorphine Scrn Ur Oxycodone Screen Urine Methadone Screen Urine Fentanyl Screen Acetaminophen < 3 Ur Barbiturates Screen Ur Phencyclidine Scrn Ur Amphetamines Screen U Benzodiazepines Scrn Urine Cocaine Screen U Marijuana (THC) Screen Ethyl Alcohol 207 02/02/25 02/02/25 02/02/25 20:24 20:39 22:32 MCV MCH MCHC RDW Plt Count MPV Immature Gran % (Auto) Neut % (Auto) Lymph % (Auto) Cecil % (Auto) Eos % (Auto) Baso % (Auto) Lymph # (Auto) Cecil # (Auto) Eos # (Auto) Baso # (Auto) Abs Immat Gran (auto) Absolute Neuts (auto) Absolute Nucleated RBC Nucleated RBC % (auto) VBG pH 7.39 VBG pCO2 34 VBG pO2 62 VBG HCO3 21 L VBG O2 Saturation 79.0 VBG Base Excess -2.8 Anion Gap Estim Creat Clear Calc Estimated GFR POC Glucose Random Glucose Lactic Acid Lactic Acid F/U @ 2Hr Lactic Acid F/U @ 4Hr 3.6 H* Calcium Magnesium Total Bilirubin AST ALT Alkaline Phosphatase Ammonia Total Creatine Kinase Total Protein Albumin Lipase Hold Yellow Top Urine Color Dark Yellow Urine Appearance Clear Urine pH 5.5 Ur Specific [place] >= 1.030 H Urine Protein Trace Urine Glucose (UA) Negative Urine Ketones Trace Urine Blood Negative Urine Nitrite Negative Ur Leukocyte Esterase Negative Salicylates Urine Opiates Screen Not Detected Ur Buprenorphine Scrn Not Detected Ur Oxycodone Screen Not Detected Urine Methadone Screen Not Detected Urine Fentanyl Screen Not Detected Acetaminophen Ur Barbiturates Screen POSITIVE H Ur Phencyclidine Scrn Not Detected Ur Amphetamines Screen Not Detected U Benzodiazepines Scrn Not Detected Urine Cocaine Screen Not Detected U Marijuana (THC) Screen Not Detected Ethyl Alcohol 02/03/25 02/03/25 02/03/25 06:36 07:13 12:11 MCV 88.1 MCH 29.7 MCHC 33.7 RDW 17.9 H Plt Count 169 D MPV 10.5 Immature Gran % (Auto) 0.4 Neut % (Auto) 55.6 Lymph % (Auto) 28.9 Cecil % (Auto) 13.3 H Eos % (Auto) 1.5 Baso % (Auto) 0.3 Lymph # (Auto) 2.1 Cecil # (Auto) 1.0 Eos # (Auto) 0.1 Baso # (Auto) 0.0 Abs Immat Gran (auto) 0.03 Absolute Neuts (auto) 4.1 Absolute Nucleated RBC 0.000 Nucleated RBC % (auto) 0.0 VBG pH VBG pCO2 VBG pO2 VBG HCO3 VBG O2 Saturation VBG Base Excess Anion Gap 11 L Estim Creat Clear Calc 209.0 Estimated GFR > 60 POC Glucose 121 H 135 H Random Glucose 128 H Lactic Acid Lactic Acid F/U @ 2Hr Lactic Acid F/U @ 4Hr Calcium 7.9 L D Magnesium Total Bilirubin AST ALT Alkaline Phosphatase Ammonia 53 Total Creatine Kinase Total Protein Albumin Lipase Hold Yellow Top Urine Color Urine Appearance Urine pH Ur Specific [place] Urine Protein Urine Glucose (UA) Urine Ketones Urine Blood Urine Nitrite Ur Leukocyte Esterase Salicylates Urine Opiates Screen Ur Buprenorphine Scrn Ur Oxycodone Screen Urine Methadone Screen Urine Fentanyl Screen Acetaminophen Ur Barbiturates Screen Ur Phencyclidine Scrn Ur Amphetamines Screen U Benzodiazepines Scrn Urine Cocaine Screen U Marijuana (THC) Screen Ethyl Alcohol 02/03/25 12:40 MCV MCH MCHC RDW Plt Count MPV Immature Gran % (Auto) Neut % (Auto) Lymph % (Auto) Cecil % (Auto) Eos % (Auto) Baso % (Auto) Lymph # (Auto) Cecil # (Auto) Eos # (Auto) Baso # (Auto) Abs Immat Gran (auto) Absolute Neuts (auto) Absolute Nucleated RBC Nucleated RBC % (auto) VBG pH VBG pCO2 VBG pO2 VBG HCO3 VBG O2 Saturation VBG Base Excess Anion Gap Estim Creat Clear Calc Estimated GFR POC Glucose 133 H Random Glucose Lactic Acid Lactic Acid F/U @ 2Hr Lactic Acid F/U @ 4Hr Calcium Magnesium Total Bilirubin AST ALT Alkaline Phosphatase Ammonia Total Creatine Kinase Total Protein Albumin Lipase Hold Yellow Top Urine Color Urine Appearance Urine pH Ur Specific [place] Urine Protein Urine Glucose (UA) Urine Ketones Urine Blood Urine Nitrite Ur Leukocyte Esterase Salicylates Urine Opiates Screen Ur Buprenorphine Scrn Ur Oxycodone Screen Urine Methadone Screen Urine Fentanyl Screen Acetaminophen Ur Barbiturates Screen Ur Phencyclidine Scrn Ur Amphetamines Screen U Benzodiazepines Scrn Urine Cocaine Screen U Marijuana (THC) Screen Ethyl Alcohol Assessment and Plan (1) Alcohol withdrawal: Status: Acute (2) Sacral decubitus ulcer: Status: Acute (3) Osteomyelitis of foot: Status: Acute (4) Non-insulin dependent type 2 diabetes mellitus: Status: Acute Plan This is a 40-year-old male with pertinent history of Guillian [place] syndrome wheelchair-bound, peripheral vascular disease status post right BKA, peripheral neuropathy, sacral decubitus ulcer, type 2 [id number] diabetes mellitus, hypertension, alcohol use disorder, mood disorder with history of SI, right hip osteoarthritis status post replacement who was brought to the emergency department on a section 12 signed by PD for patient being unable to care for self. 1.Sepsis due to acute osteomyelitis of left proximal phalanx, 3rd toe -vanco/Zosyn (2) -ID consult -vascular surgery consult 2.C diff (prior to hospitalization) -vanco as ordered 3.Alcohol withdrawal -phenobarb protocol -observe on CIWA scale -p.r.n. dosing as needed 3.Large sacral decubitus ulcer/chronic osteomyelitis of sacrum and coccyx/chronic osteomyelitis of right ischial tuberosity with ischial decubitus ulcer -antibiotics as above -general surgery/Wound Care consult 4.Liver cirrhosis -ammonia normal -trend LFTs 5.[id number] diabetes mellitus -ADA diet -lispro correctional scale -adjust as indicated 6.Hypertension -acceptable control on current therapies -adjust as indicated 7.Section 12 by PD - Care team once medically stable Lovenox Full code Requires ongoing hospitalization for IV antibiotics to treat osteomyelitis and specialty consultation Quality Stroke Does the patient have a stroke diagnosis?: No VTE Prior VTE?: No VTE Risk Level:: Medical - moderate - high VTE Device Contraindication: Treatment Not Indicated VTE Drug Contraindication: N/A - Med Ordered
--- NOTE | 2025-02-03 14:58 | HO.SKINPHOTO ---
Location: Category: Stage: Length: Width: Depth: cm Location: Category: Stage: Length: Width: Depth: cm Location: Category: Stage: Length: Width: Depth: cm Location: Category: Stage: Length: Width: Depth: cm Location: Category: Stage: Length: Width: Depth: cm Location: Category: Stage: Length: Width: Depth: cm Left foot ulceration,left knee open area,sacrum decubiti ulcer
--- NOTE | 2025-02-03 16:10 | MHC.CM.PN ---
Addendum entered by Rafaela Maravilla 02/03/25 16:26: PT AGAIN ATTEMPTED TO SEE PT WHO WAS WITH RN, CM WILL REVISIT TOMORROW Original Note: CM ATTEMPTED TO SEE PT MULTIPLE TIMES, HOWEVER NURSING CARE/ASSESSMENT IN PROGRESS CM WILL RETURN
[2025-02-03 16:39] LABS: Glucose, Whole Blood 164 mg/dL (60-115)
[2025-02-03] MEDS: Insulin Lispro 100 UNIT/ML 3 ML VIAL SUBCUT ×2 (16:52→21:20)
--- NOTE | 2025-02-03 17:53 | PM.CNGS ---
History of Present Illness Consult details Consult date: 02/03/25 Reason for consult: wound care Narrative: 40 year old male with pmhx significant for Guillain-Stopover syndrome wheelchair-bound, right BKA, chronic peripheral neuropathy, chronic sacral decubitus ulcers,, type 2 diabetes, hypertension, right hip osteoarthritis s/p replacement, multiple compression fractures, osteoporosis, PTSD, depression, bipolar disorder, history of SI attempts in 2012 and 2014 with medication overdose who presents emergency department via EMS coming from on a section 12 signed by PD for patient being unable to care for self. The patient has had multiple decubitus wounds in the past and has undergone muscle flap reconstructions over 5 years ago [facility] with Plastic surgery. He has some breakdowns here in the sacral area as well as a left knee injury and left toes. X-rays of the left toes are consistent with osteomyelitis. Patient is not able to take care of himself on his own and with the passing of his dad recently this is made things more complicated for him. He is not sure where he is going to live as he can not continue living in the same place. He says he moves around with a wheelchair at home but needs a new padding cushion for the wheelchair. He has some kind of appearance special mattress although unsure what exactly it is PMFSH Past Medical History Medical History (Updated 02/03/25 @ 14:41 by Angélica Mcrae RN) Aftercare following right hip joint replacement surgery Bipolar disorder PTSD (post-traumatic stress disorder) Sacral decubitus ulcer Peripheral neuropathy Non-insulin dependent type 2 diabetes mellitus Guillain-Stopover Surgical History Surgical History (Updated 02/03/25 @ 14:41 by Angélica Mcrae RN) History of total hip replacement Hx of right BKA Social History Social History Household Members: None Housing: House Do you presently have visiting nurse or other home services: No Alcohol intake: current Alcohol intake frequency: 3 or more drinks per day Alcohol type: hard liquor Patient Tobacco Use Status: Current everyday Tobacco user Tobacco use type: Cigarette Cigarette Packs Per Day: 1 Cigarettes Per Day: 20.0 Years Smoked: 29 years Second Hand Smoke Exposure: No Meds Allergies Allergy/AdvReac Type Severity Reaction Status Date / Time baclofen Allergy Hives Verified 02/02/25 15:58 escitalopram [From Lexapro] Allergy Vomiting Verified 02/02/25 15:58 lithium Allergy Unresponsiv Verified 02/02/25 15:58 e metformin Allergy Unknown Verified 02/02/25 15:58 sulfamethoxazole Allergy Hives Verified 02/02/25 15:58 [From Bactrim] trimethoprim [From Bactrim] Allergy Hives Verified 02/02/25 15:58 Active Medications: Current Medications Acetaminophen (Acetaminophen 325 Mg Tablet) 650 mg PO Q6H PRN PRN Reason: Pain, Mild 1-3,fever,headache Calcium Carbonate (Calcium Carbonate 750 Mg Tab.Chew) 750 mg PO Q4H PRN PRN Reason: Heartburn Dextrose (Dextrose 50 % 25 Gm/50 Ml Syringe) 25 gm IVPUSH Q15M PRN; Protocol PRN Reason: per Hypoglycemia Standing Ord. Enoxaparin Sodium (Enoxaparin Sodium 40 Mg/0.4 Ml Syringe) 40 mg SUBCUT Q24H [facility] Last Admin: 02/02/25 23:19 Dose: 40 mg Escitalopram Oxalate (Escitalopram Oxalate 10 Mg Tablet) 10 mg PO DAILY [facility] Last Admin: 02/03/25 08:18 Dose: 10 mg Glucose (Glucose Gel 15 Gm Gel..Gram.) 15 gm PO Q15M PRN; Protocol PRN Reason: per Hypoglycemia Standing Ord. Hydromorphone HCl (Hydromorphone Hcl 1 Mg/Ml Syringe) 1 mg IVPUSH Q4H PRN; Protocol PRN Reason: Pain, Severe (Pain Scale 7-10) Last Admin: 02/03/25 16:22 Dose: 1 mg Piperacillin Sod/Tazobactam (Sod 4.5 gm/ Sodium Chloride) 100 mls @ 200 mls/hr IV Q6H [facility] Last Infusion: 02/03/25 17:01 Dose: Infused Vancomycin HCl 1,500 mg/ (Sodium Chloride) 500 mls @ 333.333 mls/hr IV Q12H [facility] Last Infusion: 02/03/25 10:17 Dose: Infused Insulin Human Lispro (Insulin Lispro 100 Unit/Ml 3 Ml Vial) 0 unit SUBCUT QIDACHS [facility]; Protocol Last Admin: 02/03/25 16:52 Dose: 2 unit Lisinopril (Lisinopril 5 Mg Tablet) 5 mg PO DAILY [facility]; Protocol Last Admin: 02/03/25 08:18 Dose: 5 mg Magnesium Hydroxide (Milk Of Magnesia 30 Ml Oral.Susp) 30 ml PO DAILY PRN PRN Reason: Constipation Melatonin (Melatonin 3 Mg Tablet) 6 mg PO BEDTIME PRN PRN Reason: Insomnia Morphine Sulfate (Morphine Sulfate Immed Release 15 Mg Tablet) 15 mg PO Q8H PRN PRN Reason: Pain, Moderate(Pain Scale 4-6) Ondansetron HCl (Ondansetron Hcl 4 Mg/2 Ml Vial) 4 mg IVPUSH Q8H PRN PRN Reason: Nausea and Vomiting Pharmacy Consult (Consult Rx Etoh Phenob Im/Po) 1 each MISCELLANE ONCE PRN; Protocol PRN Reason: Consult order Pharmacy Consult (Consult Rx Vancomycin Dosing) 1 each MISCELLANE DAILY PRN PRN Reason: Consult order Phenobarbital (Phenobarbital 30 Mg Tablet) 60 mg PO BID [facility] Stop: 02/05/25 09:01 Phenobarbital (Phenobarbital 30 Mg Tablet) 30 mg PO BID [facility] Stop: 02/07/25 09:01 Phenobarbital (Phenobarbital 30 Mg Tablet) 30 mg PO DAILY [facility] Stop: 02/09/25 09:01 Pregabalin (Pregabalin 75 Mg Capsule) 225 mg PO BID [facility] Last Admin: 02/03/25 08:18 Dose: 225 mg Quetiapine Fumarate (Quetiapine Fumarate 300 Mg Tablet) 300 mg PO BEDTIME [facility] Last Admin: 02/02/25 22:54 Dose: 300 mg Sodium Chloride (0.9 % Sodium Chloride Flush 3 Ml Syringe) 3 ml IVFLUSH QSHIFT [facility] Last Admin: 02/03/25 15:57 Dose: 3 ml Thiamine HCl (Thiamine Hcl 100 Mg Tablet) 100 mg PO DAILY [facility] Last Admin: 02/03/25 08:18 Dose: 100 mg Vancomycin HCl (Vancomycin Hcl 125 Mg Capsule) 125 mg PO Q6H [facility] Last Admin: 02/03/25 15:57 Dose: 125 mg Home Medications ?Medication ?Instructions ?Recorded ?Confirmed ?Last Taken ?Type atorvastatin 40 mg tablet 40 mg PO DAILY 02/02/25 02/02/25 02/01/25 History escitalopram oxalate 10 mg tablet 10 mg PO DAILY 02/02/25 02/02/25 02/01/25 History glipizide 5 mg tablet 5 mg PO DAILY 02/02/25 02/02/2525 History lisinopril 5 mg tablet 5 mg PO DAILY 02/02/25 02/02/25 02/01/25 History morphine 15 mg immediate release 15 mg PO Q8H PRN pain 02/02/25 02/02/25 Unknown History tablet pregabalin 225 mg capsule 225 mg PO BID 02/02/25 02/02/25 02/01/25 History quetiapine 300 mg tablet 300 mg PO BEDTIME 02/02/25 02/02/25 02/01/25 History Physical Exam Vital Signs: Vital Signs: Last Vital Signs Temp 97.1 F 02/03/25 15:46 Pulse 96 02/03/25 15:46 Resp 18 02/03/25 15:46 BP 128/78 02/03/25 15:46 Pulse Ox 98 02/03/25 15:46 O2 Del Method Room Air 02/03/25 15:46 BMI result Body Mass Index 34.7 Const: General: cooperative Skin: Other: Sacral area is very deformed with scarring and indentations of the skin and soft tissue consistent with his previous flap reconstructions. They are not that many open areas. There is 1 area just off the midline in the upper area with some exudate fibrin at the base about 0.5 x 0.5 by 0.1 cm. There are some dimpling in the soft tissue but unsure whether these are actually draining anything. Left knee has a small abrasion which cleaned up going down into the deep dermal tissue. Left 3rd and 4th toes have some abrasions on the surface but no significant true openings. No evidence of any bone protrusion. Results Labs 02/03/25 06:36 02/03/25 06:36 Labs: Abnormal lab results 02/02/25 02/02/25 02/02/25 Range/Units 17:39 20:20 20:24 RBC (4.60-5.80) X10*6/uL Hgb (14.0-18.0) g/dl Hct (42.0-52.0) % RDW (11.0-16.0) % [place] % (Auto) (2-11) % VBG HCO3 21 L (22-26) mmol/L Carbon Dioxide 19 L (22-29) mmol/L Anion Gap 22 H (12-20) POC Glucose (60-115) mg/dL Random Glucose 132 H (60-115) mg/dL Lactic Acid 5.5 H* (0.5-2.0) mmol/L Lactic Acid F/U @ 2Hr 6.1 H* (0.5-2.0) mmol/L Lactic Acid F/U @ 4Hr (0.5-2.0) mmol/L Calcium (8.4-10.2) mg/dL AST 56 H (5-37) U/L ALT 85 H (0-40) U/L Total Creatine Kinase 33 L (38-174) U/L Ur Specific [place] (1.005-1.025) Salicylates < 5.0 L (15-30) mg/dL Ur Barbiturates Screen (Not Detect) 02/02/25 02/02/25 02/03/25 Range/Units 20:39 22:32 06:36 RBC 3.70 L D (4.60-5.80) X10*6/uL Hgb 11.0 L D (14.0-18.0) g/dl Hct 32.6 L D (42.0-52.0) % RDW 17.9 H (11.0-16.0) % [place] % (Auto) 13.3 H (2-11) % VBG HCO3 (22-26) mmol/L Carbon Dioxide (22-29) mmol/L Anion Gap 11 L (12-20) POC Glucose (60-115) mg/dL Random Glucose 128 H (60-115) mg/dL Lactic Acid (0.5-2.0) mmol/L Lactic Acid F/U @ 2Hr (0.5-2.0) mmol/L Lactic Acid F/U @ 4Hr 3.6 H* (0.5-2.0) mmol/L Calcium 7.9 L D (8.4-10.2) mg/dL AST (5-37) U/L ALT (0-40) U/L Total Creatine Kinase (38-174) U/L Ur Specific [place] >= 1.030 H (1.005-1.025) Salicylates (15-30) mg/dL Ur Barbiturates Screen POSITIVE H (Not Detect) 02/03/25 02/03/25 02/03/25 Range/Units 07:13 12:11 12:40 RBC (4.60-5.80) X10*6/uL Hgb (14.0-18.0) g/dl Hct (42.0-52.0) % RDW (11.0-16.0) % [place] % (Auto) (2-11) % VBG HCO3 (22-26) mmol/L Carbon Dioxide (22-29) mmol/L Anion Gap (12-20) POC Glucose 121 H 135 H 133 H (60-115) mg/dL Random Glucose (60-115) mg/dL Lactic Acid (0.5-2.0) mmol/L Lactic Acid F/U @ 2Hr (0.5-2.0) mmol/L Lactic Acid F/U @ 4Hr (0.5-2.0) mmol/L Calcium (8.4-10.2) mg/dL AST (5-37) U/L ALT (0-40) U/L Total Creatine Kinase (38-174) U/L Ur Specific [place] (1.005-1.025) Salicylates (15-30) mg/dL Ur Barbiturates Screen (Not Detect) 02/03/25 Range/Units 16:12 RBC (4.60-5.80) X10*6/uL Hgb (14.0-18.0) g/dl Hct (42.0-52.0) % RDW (11.0-16.0) % [place] % (Auto) (2-11) % VBG HCO3 (22-26) mmol/L Carbon Dioxide (22-29) mmol/L Anion Gap (12-20) POC Glucose 164 H (60-115) mg/dL Random Glucose (60-115) mg/dL Lactic Acid (0.5-2.0) mmol/L Lactic Acid F/U @ 2Hr (0.5-2.0) mmol/L Lactic Acid F/U @ 4Hr (0.5-2.0) mmol/L Calcium (8.4-10.2) mg/dL AST (5-37) U/L ALT (0-40) U/L Total Creatine Kinase (38-174) U/L Ur Specific [place] (1.005-1.025) Salicylates (15-30) mg/dL Ur Barbiturates Screen (Not Detect) Short CBC 02/03/25 Range/Units 06:36 WBC 7.3 (4.8-10.8) X10*3/uL Hgb 11.0 L D (14.0-18.0) g/dl Hct 32.6 L D (42.0-52.0) % Plt Count 169 D (160-400) X10*3/uL BMP 02/02/25 02/03/25 17:39 06:36 Sodium 140 136 Potassium 4.5 D 3.5 D Chloride 104 106 Carbon Dioxide 19 L 23 BUN 15 14 Creatinine 0.57 0.64 Calcium 9.1 D 7.9 L D Cardiac Enzymes 02/02/25 Range/Units 17:39 Total Creatine Kinase 33 L (38-174) U/L Liver Function 02/02/25 Range/Units 17:39 Total Bilirubin 0.6 (0.0-1.0) mg/dL AST 56 H (5-37) U/L ALT 85 H (0-40) U/L Alkaline Phosphatase 99 (39-117) U/L Albumin 4.7 (3.5-5.0) g/dL Urine 02/02/25 Range/Units 20:39 Urine Color Dark Yellow Urine Appearance Clear Urine pH 5.5 (5.0-9.0) Ur Specific [place] >= 1.030 H (1.005-1.025) Urine Protein Trace (Neg-Trace) mg/dL Urine Glucose (UA) Negative (Negative) mg/dL All other labs normal. Imaging Additional studies: Signed Patient: Jean Roldan MR#: [id number] : 1985 Acct:[id number] Age/Sex: 40 / M ADM Date: 02/02/25 Loc: HO.ED Attending Dr: Ordering Physician: Yvette Mcnamara Date of Service: 02/02/25 Procedure(s): XR foot LT min 3V Accession Number(s): [id number] cc: Physician,Unknown ; Yvette Mcnamara~ CLINICAL HISTORY: cellulitis Exam: AP, lateral, and oblique views of the left foot. Comparison: None. Findings: Patient has undergone prior amputation of the IP joint of the great toe in the PIP joint of the 2nd toe. Truncation and diminutive appearance of the distal aspect of the 5th metatarsal which may be postoperative in nature. Remote fracture deformity of the distal diaphysis of the 4th metatarsal is evident with cortical thickening. Bones are osteopenic. Bulky ossification superior to the posterior calcaneus measuring 4.1 x 2.6 cm in size. No periosteal reaction seen at that site. Subtle erosive changes seen at the distal aspect of the proximal phalanx of the 3rd toe. No acute fracture or bony destructive changes are identified. No soft tissue gas. Impression: 1. Subtle erosive change of the distal aspect of the proximal phalanx of the 3rd toe. Osteomyelitis and septic arthritis is not excluded at this location. No other areas of concern for osteomyelitis. 2. Multiple chronic abnormalities as fully discussed above. This includes bulky ossification along the superior aspect of the posterior calcaneus of the expected Achilles tendon insertion site. This is likely related to chronic Achilles tendon calcific enthesopathy. This document has been electronically signed by: Renzo Juares MD on 02/02/2025 19:17:45 Dictated By: Renzo Juares MD Signed By: <Electronically signed by Renzo Juares MD in [place]> 02/02/251917 DD/ 16 TD/TT: 02/02/251916 Human Resources Compliance Manager: CT Scan Report Signed Patient: Jean Roldan MR#: [id number] : 1985 Acct:[id number] Age/Sex: 40 / M ADM Date: 02/02/25 Loc: HO.ED Attending Dr: Ordering Physician: Yvette Mcnamara Date of Service: 02/02/25 Procedure(s): CT abdomen pelvis w IV con Accession Number(s): [id number] cc: Physician,Unknown ; Yvette Mcnamara~ Report Number: [id number]: Total DLP = 1050.00 mGy-cm CLINICAL HISTORY: large sacral ulcer Exam: CT abdomen and pelvis with intravenous contrast. Comparison: None. Findings: CT abdomen: No infiltrates within the lung bases. There is a 2 mm juxtapleural pulmonary nodule within the left lower lobe on axial image 2. No pleural effusion or pneumothorax. Multilevel degenerative disc disease and degenerative facet disease throughout the visualized portions of the thoracolumbar spine. No bony destructive change or fracture identified. Nodularity along the periphery of the liver is evident. No discrete hepatic mass lesion. Main portal vein is patent. Spleen and pancreas are unremarkable. Peripherally calcified gallstones measure up to 2 cm in size without gallbladder wall thickening or pericholecystic fluid. Left adrenal gland mass measures 1.7 x 1.7 cm in size. This has Hounsfield units of 53. This is along the inferior aspect of the left adrenal gland. Along the superior aspect of the medial limb is an additional mass measuring 2.0 x 1.6 cm in size. This mass has Hounsfield units of 31. Right adrenal gland is unremarkable. Symmetric enhancement of the kidneys without mass, hydronephrosis, or nephrolithiasis. Large amount of ingested contents within the stomach. No dilated small bowel. Many of the small bowel loops are fluid-filled. Scattered small bowel air-fluid levels. CT pelvis: Large sacral decubitus ulcer is evident. This spans a craniocaudal distance of 7.7 cm. This measures 5.6 cm medial to lateral. This measures 1 cm in depth. Abnormal soft tissue induration and fullness along the deep aspect of the sacral decubitus ulcer with areas of subtle bony irregularity along the posterior aspect of the inferior sacrum and coccyx. The coccyx is quite diminutive. No discrete fluid collection seen to suggest abscess. Additional decubitus ulcer seen along the right ischium. Soft tissue defect measures approximately 2 cm in size with abnormal soft tissue density extending into the posterior aspect of the right ischial tuberosity. Likely chronic periosteal reaction and cortical thickening of the right ischium. Right hip arthroplasties in place. Liquid stool seen throughout the distal colon. No obstructive phenomenon. No free fluid or free air. Impression: 1. Large sacral decubitus ulcer with likely chronic osteomyelitis of the distal sacrum and visualized portion of the coccyx. 2. Right ischial decubitus ulcer with additional site of likely chronic osteomyelitis of the right ischial tuberosity. 3. Liquid stool throughout the distal colon suggesting diarrheal disease. 4. Cholelithiasis without CT findings of cholecystitis. 5. Left-sided adrenal gland masses. Adrenal adenomas would be favored statistically. However, this is not a definitive determination given the Hounsfield unit measurements. Nonemergent CT of the abdomen using the adrenal gland mass protocol is suggested for further evaluation. 6. Cirrhotic liver. This document has been electronically signed by: Renzo Juares MD on 02/02/2025 20:15:10 Dictated By: Renzo Juares MD Signed By: <Electronically signed by Renzo Juares MD in [place]> 02/02/252015 DD/ 14 TD/TT: 02/02/252014 Human Resources Compliance Manager: Assessment and Plan (1) Osteomyelitis of foot: Status: Acute (2) Sacral decubitus ulcer: Status: Acute Plan 40-year-old patient with Mia Stopover syndrome limited mobility already status post right below-knee amputation has already had multiple sacral decubitus wounds present. First in regards to the left 3rd toe with osteomyelitis at this point the wound itself is scabbed over dried up and so the patient's options would be to either undergo amputation or 2 carry out a long-term course of antibiotics. I think IV antibiotics would be a little more difficult for this patient unsure if there is any p.o. situation that could work well. He has not against having an amputation. This maybe the way to go for this wound. In regards to the left knee wound is very superficial clean would recommend just alginate dressings every other day. In regards to the sacral decubitus wounds the whole sacral area is mass of abnormal unusual skin soft tissue muscles secondary to his previous decubitus ulcers and significant reconstruction flap plastic procedures. At this point only see small area that is open into the fatty tissue and looks relatively clean. Would recommend just covering these areas with alginate. Change every other day. These wounds underlying her chronic osteomyelitis. I do not believe the any antibiotic therapy would be helpful at this point it there is no significant bony exposure I think we would just take more of a focus on preventing these wounds from getting worse. Continue with the dressings as above. I doubt that anyone would carry out any further reconstruction flaps or significant tissue rearrangements with the underlying medical issues including alcoholism and mental health issues that he has. As a result would just recommend conservative care Overall would focus more on preventative wound management by making sure he has a Roho cushion that he can put in his wheelchair potentially a new wheelchair and then air loss mattress at home. We will work with the social service teams to see if they can reassess these issues. It may require having a visiting nurse team go to his house and evaluate. In the meantime plan to do dressings as stated and see his response. Procedures Date of Service Date of Service: 02/03/25
[2025-02-03] MEDS: PHENobarbitaL 30 MG TABLET 60 MG PO (20:45)
[2025-02-03 20:46] LABS: Glucose, Whole Blood 189 mg/dL (60-115)
[2025-02-03] MEDS: QUEtiapine Fumarate 300 MG TABLET PO (20:46)
[2025-02-03] MEDS: Enoxaparin Sodium 40 MG/0.4 ML SYRINGE SUBCUT (21:51)
--- NOTE | 2025-02-03 23:20 | W.PM.IDCN ---
History of Present Illness Data of Consult Service Date: 02/03/25 Requesting physician: Nando Boswell Primary Care Provider: Unknown Physician HPI Reason for consult: left third toe OM He presents with call-out for not being able to care for self. 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 He had GBS which left him wheelchair bound. He also has chronic OM sacrum ,DM and right BKA as well as neuropathy feet. He had Cdiff one month ago and has been on po Vancomycin for a month with five days left. XR shows third top DIP OM/SA. He was started on Zosyn and Vancomycin IV for OM foot and is on po Vancomycin for Cdiff. He doesnt have much diarrhea at this time. He is drinking alcohol, and h/o WD and WD seizure. 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 Family History Family history: reviewed and not pertinent Surgical History Surgical History History of total hip replacement Hx of right BKA Social History Social History Household Members: None Housing: House Do you presently have visiting nurse or other home services: No Alcohol intake: current Alcohol intake frequency: 3 or more drinks per day Alcohol type: hard liquor Comment: stand pivot to luz marina avila Patient Tobacco Use Status: Current everyday Tobacco user Tobacco use type: Cigarette Cigarette Packs Per Day: 1 Cigarettes Per Day: 20.0 Years Smoked: 29 years Second Hand Smoke Exposure: No Meds Allergies Allergy/AdvReac Type Severity Reaction Status Date / Time baclofen Allergy Hives Verified 02/02/25 15:58 escitalopram [From Lexapro] Allergy Vomiting Verified 02/02/25 15:58 lithium Allergy Unresponsiv Verified 02/02/25 15:58 e metformin Allergy Unknown Verified 02/02/25 15:58 sulfamethoxazole Allergy Hives Verified 02/02/25 15:58 [From Bactrim] trimethoprim [From Bactrim] Allergy Hives Verified 02/02/25 15:58 Active Medications: Current Medications Acetaminophen (Acetaminophen 325 Mg Tablet) 650 mg PO Q6H PRN PRN Reason: Pain, Mild 1-3,fever,headache Calcium Carbonate (Calcium Carbonate 750 Mg Tab.Chew) 750 mg PO Q4H PRN PRN Reason: Heartburn Dextrose (Dextrose 50 % 25 Gm/50 Ml Syringe) 25 gm IVPUSH Q15M PRN; Protocol PRN Reason: per Hypoglycemia Standing Ord. Enoxaparin Sodium (Enoxaparin Sodium 40 Mg/0.4 Ml Syringe) 40 mg SUBCUT Q24H [facility] Last Admin: 02/03/25 21:51 Dose: 40 mg Escitalopram Oxalate (Escitalopram Oxalate 10 Mg Tablet) 10 mg PO DAILY [facility] Last Admin: 02/03/25 08:18 Dose: 10 mg Glucose (Glucose Gel 15 Gm Gel..Gram.) 15 gm PO Q15M PRN; Protocol PRN Reason: per Hypoglycemia Standing Ord. Hydromorphone HCl (Hydromorphone Hcl 1 Mg/Ml Syringe) 1 mg IVPUSH Q4H PRN; Protocol PRN Reason: Pain, Severe (Pain Scale 7-10) Last Admin: 02/03/25 21:22 Dose: 1 mg Piperacillin Sod/Tazobactam (Sod 4.5 gm/ Sodium Chloride) 100 mls @ 200 mls/hr IV Q6H [facility] Last Infusion: 02/03/25 23:14 Dose: Infused Vancomycin HCl 1,500 mg/ (Sodium Chloride) 500 mls @ 333.333 mls/hr IV Q8H [facility] Last Infusion: 02/03/25 22:42 Dose: Infused Insulin Human Lispro (Insulin Lispro 100 Unit/Ml 3 Ml Vial) 0 unit SUBCUT QIDACHS [facility]; Protocol Last Admin: 02/03/25 21:20 Dose: 2 unit Lisinopril (Lisinopril 5 Mg Tablet) 5 mg PO DAILY [facility]; Protocol Last Admin: 02/03/25 08:18 Dose: 5 mg Magnesium Hydroxide (Milk Of Magnesia 30 Ml Oral.Susp) 30 ml PO DAILY PRN PRN Reason: Constipation Melatonin (Melatonin 3 Mg Tablet) 6 mg PO BEDTIME PRN PRN Reason: Insomnia Morphine Sulfate (Morphine Sulfate Immed Release 15 Mg Tablet) 15 mg PO Q8H PRN PRN Reason: Pain, Moderate(Pain Scale 4-6) Ondansetron HCl (Ondansetron Hcl 4 Mg/2 Ml Vial) 4 mg IVPUSH Q8H PRN PRN Reason: Nausea and Vomiting Pharmacy Consult (Consult Rx Etoh Phenob Im/Po) 1 each MISCELLANE ONCE PRN; Protocol PRN Reason: Consult order Pharmacy Consult (Consult Rx Vancomycin Dosing) 1 each MISCELLANE DAILY PRN PRN Reason: Consult order Phenobarbital (Phenobarbital 30 Mg Tablet) 60 mg PO BID [facility] Stop: 02/05/25 09:01 Last Admin: 02/03/25 20:45 Dose: 60 mg Phenobarbital (Phenobarbital 30 Mg Tablet) 30 mg PO BID [facility] Stop: 02/07/25 09:01 Phenobarbital (Phenobarbital 30 Mg Tablet) 30 mg PO DAILY [facility] Stop: 02/09/25 09:01 Pregabalin (Pregabalin 75 Mg Capsule) 225 mg PO BID [facility] Last Admin: 02/03/25 20:45 Dose: 225 mg Quetiapine Fumarate (Quetiapine Fumarate 300 Mg Tablet) 300 mg PO BEDTIME [facility] Last Admin: 02/03/25 20:46 Dose: 300 mg Sodium Chloride (0.9 % Sodium Chloride Flush 3 Ml Syringe) 3 ml IVFLUSH QSHIFT [facility] Last Admin: 02/03/25 22:43 Dose: 3 ml Thiamine HCl (Thiamine Hcl 100 Mg Tablet) 100 mg PO DAILY [facility] Last Admin: 02/03/25 08:18 Dose: 100 mg Vancomycin HCl (Vancomycin Hcl 125 Mg Capsule) 125 mg PO Q6H [facility] Last Admin: 02/03/25 21:50 Dose: 125 mg Home Medications ?Medication ?Instructions ?Recorded ?Confirmed ?Last Taken ?Type atorvastatin 40 mg tablet 40 mg PO DAILY 02/02/25 02/02/25 02/01/25 History escitalopram oxalate 10 mg tablet 10 mg PO DAILY 02/02/25 02/02/25 02/01/25 History glipizide 5 mg tablet 5 mg PO DAILY 02/02/25 02/02/25 02/01/25 History lisinopril 5 mg tablet 5 mg PO DAILY 02/02/25 02/02/25 02/01/25 History morphine 15 mg immediate release 15 mg PO Q8H PRN pain 02/02/25 02/02/25 Unknown History tablet pregabalin 225 mg capsule 225 mg PO BID 02/02/25 02/02/25 02/01/25 History quetiapine 300 mg tablet 300 mg PO BEDTIME 02/02/25 02/02/25 02/01/25 History Physical Exam Vital Signs: Vital Signs: Last Vital Signs Temp 97.1 F 02/03/25 23:16 Pulse 63 02/03/25 23:16 Resp 18 02/03/25 23:16 BP 134/63 02/03/25 23:16 Pulse Ox 95 02/03/25 23:16 O2 Del Method Room Air 02/03/25 23:16 BMI result Body Mass Index 34.7 Const: General: cooperative HEENT: Head: Yes normal to inspection Face and sinus: Yes normal facial exam Mouth: Normal oral and palatal mucosa present Teeth and gingiva: dentition normal Eyes: General: appearance normal, both eyes and all related structures Pupils: Equal, round and reactive pupils present Resp: Effort & Inspection: normal respiratory effort Cardio: Rate: regular rate Rhythm: regular rhythm GI: Palpation (GI): Soft to palpation and nontender : General: Yes no CVA tenderness Back/Spine/Pelvis: Back: no CVA tenderness Skin: General skin exam: no rashes or lesions noted Neuro: Other: neuropathy feet General: moves all extremities Cranial nerves: Yes Equal, round and reactive pupils present Extrem: Other: left third toe tip ulcer,swollen,bluish red Psych: Appearance: grossly normal Results Labs 02/03/25 06:36 02/03/25 06:36 Labs: Short CBC 02/03/25 Range/Units 06:36 WBC 7.3 (4.8-10.8) X10*3/uL Hgb 11.0 L D (14.0-18.0) g/dl Hct 32.6 L D (42.0-52.0) % Plt Count 169 D (160-400) X10*3/uL BMP 02/03/25 06:36 Sodium 136 Potassium 3.5 D Chloride 106 Carbon Dioxide 23 BUN 14 Creatinine 0.64 Calcium 7.9 L D Microbiology Microbiology Results: Microbiology 02/02/25 17:46 Blood - Venous Blood Culture - Preliminary No growth after 24 hours. 02/02/25 17:39 Blood - Venous Blood Culture - Preliminary No growth after 24 hours. Assessment and Plan (1) Alcohol withdrawal: Status: Acute (2) Lactic acidosis: Status: Acute (3) Sepsis: Status: Acute (4) Osteomyelitis of foot: Status: Acute Plan Options for treatment foot d/w patient. He doesnt want six weeks IV antibiotics to bother with or Cdiff concerns and requests amputation left third toe as treatment choice so involve Surgery. Po Vancomycin as long as on IV antibiotics which is on for now until seen by surgery and then 48 hours after. Stop IV antibiotics after toe removed.
[2025-02-04] VITALS (7 sets, daily range): BP systolic 111–128; BP diastolic 62–87; PULSE 76–96; RESP 16–18; TEMP 36.2–36.6; O2SAT 97–99
[2025-02-04] MEDS: HYDROmorphone HCl 1 MG/ML SYRINGE IVPUSH ×6 (01:02→22:40)
[2025-02-04] MEDS: Piperacillin Sodium/Tazobactam 4.5 GM in 0.9 % Sodium Chloride 100 ML IV ×4 (05:09→22:48)
[2025-02-04] MEDS: vancomycin HCL 125 MG CAPSULE PO ×4 (05:10→22:39)
[2025-02-04] MEDS: vancomycin HCL 1,500 MG in 0.9 % Sodium Chloride 500 ML 333.33 MG IV ×2 (05:51→12:19)
[2025-02-04 06:10] LABS: Glucose, Whole Blood 106 mg/dL (60-115)
[2025-02-04 06:36] LABS: MANUAL DIFF FLAG NO
[2025-02-04 06:47] LABS: Basophils Percent Auto 0.5 % (0-2); Eosinophils Absolute Auto 0.1 X10*3/uL (0.0-0.4); Hematocrit 33.2 % (42.0-52.0); Hemoglobin 11.2 g/dl (14.0-18.0); Imm Gran Abs Auto 0.01 X10*3/uL (0.00-0.03); Imm Gran Pct Auto 0.2 % (0.0-0.4); Lymphocytes Absolute Auto 1.7 X10*3/uL (1.2-4.9); Lymphocytes Percent Auto 41.4 % (20-40); Mean Corpuscular HGB Conc 33.7 g/dl (31.0-36.0); Mean Corpuscular Hemoglobin 30.3 pg (27.0-33.0); Mean Corpuscular Volume 89.7 fL (80.0-98.0); Mean Platelet Volume 10.7 fL (9.4-12.4); Monocytes Absolute Auto 0.6 X10*3/uL (0.1-1.2); Neutrophils Absolute Auto 1.6 x10*3/uL (2.0-8.3); Neutrophils Percent Auto 39.9 % (45-73); Platelet Count 157 X10*3/uL (160-400); Red Cell Distribution Width 17.2 % (11.0-16.0); White Blood Count 4.1 X10*3/uL (4.8-10.8)
[2025-02-04 07:00] LABS: Albumin Level 3.6 g/dL (3.5-5.0); Alkaline Phosphatase 94 U/L (39-117); Anion Gap 11 (12-20); Aspartate Amino Transferase 34 U/L (5-37); Bilirubin Total 0.4 mg/dL (0.0-1.0); Blood Urea Nitrogen 8 mg/dL (9-16); Carbon Dioxide 26 mmol/L (22-29); Chloride 107 mmol/L (96-108); Creatinine Clr Calc Pharmacy 262.3; Estimated Glomerular Filt Rate > 60; Glucose Fasting 93 mg/dL (60-99); Potassium 4.1 mmol/L (3.3-5.1); Sodium 140 mmol/L (135-145); Total Protein 5.8 g/dL (6.5-8.0)
[2025-02-04 07:24] LABS: Alanine Aminotransferase 45 U/L (0-40); Calcium 8.9 mg/dL (8.4-10.2)
[2025-02-04 07:46] LABS: Glucose, Whole Blood 131 mg/dL (60-115)
[2025-02-04] MEDS: Pregabalin 75 MG CAPSULE 225 MG PO ×2 (08:55→21:11)
[2025-02-04] MEDS: Thiamine HCL 100 MG TABLET PO (08:56)
[2025-02-04] MEDS: Escitalopram Oxalate 10 MG TABLET PO (08:56)
[2025-02-04] MEDS: PHENobarbitaL 30 MG TABLET 60 MG PO ×2 (08:56→21:11)
[2025-02-04] MEDS: lisinopriL 5 MG TABLET PO (08:59)
[2025-02-04] MEDS: 0.9 % Sodium Chloride Flush 3 ML SYRINGE IVFLUSH ×2 (09:00→17:37)
[2025-02-04 11:29] LABS: Glucose, Whole Blood 114 mg/dL (60-115)
--- NOTE | 2025-02-04 13:36 | HO.PM.IMPN ---
Subjective Subjective Date of Service: 02/04/25 Interval History: Doing well from withdrawal standpoint. CIWA 0. Appreciate vascular surgery/ID input Review of Systems Denies chest pain Denies shortness of breath Denies nausea vomiting diarrhea Denies fever chills Admits to sacral wound pain Physical Exam Vital Signs: Vital Signs: Last Vital Signs Temp 97.1 F 02/04/25 07:25 Pulse 76 02/04/25 07:25 Resp 16 02/04/25 09:43 BP 127/87 02/04/25 08:59 Pulse Ox 99 02/04/25 07:25 O2 Del Method Room Air 02/04/25 07:25 BMI result Body Mass Index 34.7 Const: Other: Awake alert no acute distress Resp: Other: Clear to auscultation bilaterally no rales rhonchi or wheezes Cardio: Other: No S4; positive S1-S2; no S3 murmurs rubs or gallops GI: Other: Soft nontender nondistended normoactive bowel sounds Skin: Other: See admission photos for details Extrem: Other: See admission photos for left foot/toe upgrade Objective Data Active Medications Acetaminophen (Acetaminophen 325 Mg Tablet) 650 mg PO Q6H PRN PRN Reason: Pain, Mild 1-3,fever,headache Calcium Carbonate (Calcium Carbonate 750 Mg Tab.Chew) 750 mg PO Q4H PRN PRN Reason: Heartburn Dextrose (Dextrose 50 % 25 Gm/50 Ml Syringe) 25 gm IVPUSH Q15M PRN; Protocol PRN Reason: per Hypoglycemia Standing Ord. Enoxaparin Sodium (Enoxaparin Sodium 40 Mg/0.4 Ml Syringe) 40 mg SUBCUT Q24H [facility] Last Admin: 02/03/25 21:51 Dose: 40 mg Documented By: CADEN Escitalopram Oxalate (Escitalopram Oxalate 10 Mg Tablet) 10 mg PO DAILY [facility] Last Admin: 02/04/25 08:56 Dose: 10 mg Documented By: BURSonal Glucose (Glucose Gel 15 Gm Gel..Gram.) 15 gm PO Q15M PRN; Protocol PRN Reason: per Hypoglycemia Standing Ord. Hydromorphone HCl (Hydromorphone Hcl 1 Mg/Ml Syringe) 1 mg IVPUSH Q4H PRN; Protocol PRN Reason: Pain, Severe (Pain Scale 7-10) Last Admin: 02/04/25 09:43 Dose: 1 mg Documented By: AL Piperacillin Sod/Tazobactam (Sod 4.5 gm/ Sodium Chloride) 100 mls @ 200 mls/hr IV Q6H [facility] Last Infusion: 02/04/25 10:40 Dose: Infused Documented By: AL Vancomycin HCl 1,500 mg/ (Sodium Chloride) 500 mls @ 333.333 mls/hr IV Q8H [facility] Last Admin: 02/04/25 12:19 Dose: 333.33 mls/hr Documented By: AL Insulin Human Lispro (Insulin Lispro 100 Unit/Ml 3 Ml Vial) 0 unit SUBCUT QIDACHS [facility]; Protocol Last Admin: 02/04/25 11:40 Dose: Not Given Documented By: AL Non-Admin Reason: No Insulin Coverage Lisinopril (Lisinopril 5 Mg Tablet) 5 mg PO DAILY [facility]; Protocol Last Admin: 02/04/25 08:59 Dose: 5 mg Documented By: AL Magnesium Hydroxide (Milk Of Magnesia 30 Ml Oral.Susp) 30 ml PO DAILY PRN PRN Reason: Constipation Melatonin (Melatonin 3 Mg Tablet) 6 mg PO BEDTIME PRN PRN Reason: Insomnia Morphine Sulfate (Morphine Sulfate Immed Release 15 Mg Tablet) 15 mg PO Q8H PRN PRN Reason: Pain, Moderate(Pain Scale 4-6) Ondansetron HCl (Ondansetron Hcl 4 Mg/2 Ml Vial) 4 mg IVPUSH Q8H PRN PRN Reason: Nausea and Vomiting Pharmacy Consult (Consult Rx Etoh Phenob Im/Po) 1 each MISCELLANE ONCE PRN; Protocol PRN Reason: Consult order Pharmacy Consult (Consult Rx Vancomycin Dosing) 1 each MISCELLANE DAILY PRN PRN Reason: Consult order Phenobarbital (Phenobarbital 30 Mg Tablet) 60 mg PO BID [facility] Stop: 02/05/25 09:01 Last Admin: 02/04/25 08:56 Dose: 60 mg Documented By: AL Phenobarbital (Phenobarbital 30 Mg Tablet) 30 mg PO BID [facility] Stop: 02/07/25 09:01 Phenobarbital (Phenobarbital 30 Mg Tablet) 30 mg PO DAILY [facility] Stop: 02/09/25 09:01 Pregabalin (Pregabalin 75 Mg Capsule) 225 mg PO BID [facility] Last Admin: 02/04/25 08:55 Dose: 225 mg Documented By: AL Quetiapine Fumarate (Quetiapine Fumarate 300 Mg Tablet) 300 mg PO BEDTIME [facility] Last Admin: 02/03/25 20:46 Dose: 300 mg Documented By: CADEN Sodium Chloride (0.9 % Sodium Chloride Flush 3 Ml Syringe) 3 ml IVFLUSH QSHIFT [facility] Last Admin: 02/04/25 09:00 Dose: 3 ml Documented By: AL Thiamine HCl (Thiamine Hcl 100 Mg Tablet) 100 mg PO DAILY [facility] Last Admin: 02/04/25 08:56 Dose: 100 mg Documented By: AL Vancomycin HCl (Vancomycin Hcl 125 Mg Capsule) 125 mg PO Q6H [facility] Last Admin: 02/04/25 10:40 Dose: 125 mg Documented By: AL Labs 02/04/25 05:42 02/04/25 05:42 Labs: Laboratory Results - last 24 hr 02/03/25 02/03/25 02/03/25 16:12 18:15 20:31 MCV MCH MCHC RDW Plt Count MPV Immature Gran % (Auto) Neut % (Auto) Lymph % (Auto) Hood % (Auto) Eos % (Auto) Baso % (Auto) Lymph # (Auto) Hood # (Auto) Eos # (Auto) Baso # (Auto) Abs Immat Gran (auto) Absolute Neuts (auto) Absolute Nucleated RBC Nucleated RBC % (auto) Anion Gap Estim Creat Clear Calc Estimated GFR POC Glucose 164 H 189 H Fasting Glucose Calcium Total Bilirubin AST ALT Alkaline Phosphatase Total Protein Albumin Random Vancomycin 7.0 L 02/04/25 02/04/25 02/04/25 05:42 06:05 07:32 MCV 89.7 MCH 30.3 MCHC 33.7 RDW 17.2 H Plt Count 157 L MPV 10.7 Immature Gran % (Auto) 0.2 Neut % (Auto) 39.9 L Lymph % (Auto) 41.4 H Hood % (Auto) 15.0 H Eos % (Auto) 3.0 Baso % (Auto) 0.5 Lymph # (Auto) 1.7 Hood # (Auto) 0.6 Eos # (Auto) 0.1 Baso # (Auto) 0.0 Abs Immat Gran (auto) 0.01 Absolute Neuts (auto) 1.6 L Absolute Nucleated RBC 0.000 Nucleated RBC % (auto) 0.0 Anion Gap 11 L Estim Creat Clear Calc 262.3 Estimated GFR > 60 POC Glucose 106 131 H Fasting Glucose 93 Calcium 8.9 D Total Bilirubin 0.4 AST 34 ALT 45 H Alkaline Phosphatase 94 Total Protein 5.8 L Albumin 3.6 Random Vancomycin 02/04/25 11:25 MCV MCH MCHC RDW Plt Count MPV Immature Gran % (Auto) Neut % (Auto) Lymph % (Auto) Hood % (Auto) Eos % (Auto) Baso % (Auto) Lymph # (Auto) Hood # (Auto) Eos # (Auto) Baso # (Auto) Abs Immat Gran (auto) Absolute Neuts (auto) Absolute Nucleated RBC Nucleated RBC % (auto) Anion Gap Estim Creat Clear Calc Estimated GFR POC Glucose 114 Fasting Glucose Calcium Total Bilirubin AST ALT Alkaline Phosphatase Total Protein Albumin Random Vancomycin Microbiology Microbiology Results: Microbiology 02/02/25 17:46 Blood Culture - Preliminary Blood - Venous No growth after 24 hours. 02/02/25 17:39 Blood Culture - Preliminary Blood - Venous No growth after 24 hours. 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 1.Sepsis due to acute osteomyelitis of left proximal phalanx, 3rd toe -vanco/Zosyn (3) -ID consult -vascular surgery consult in am 2.C diff (prior to hospitalization) -vanco as ordered 3.Alcohol withdrawal -phenobarb protocol -observe on CIWA scale...) today -p.r.n. dosing as needed 3.Large sacral decubitus ulcer/chronic osteomyelitis of sacrum and coccyx/chronic osteomyelitis of right ischial tuberosity with ischial decubitus ulcer -antibiotics as above -general surgery/Wound Care consult...conservatives 4.Liver cirrhosis -ammonia normal -trend LFTs 5.Hrp-pstjbhk-pleciuzlw diabetes mellitus -ADA diet -lispro correctional scale -adjust as indicated 6.Hypertension -acceptable control on current therapies -adjust as indicated 7.Section 12 by PD - Care team once medically stable Lovenox Full code Requires ongoing hospitalization for IV antibiotics to treat osteomyelitis and specialty consultation Quality Stroke Does the patient have a stroke diagnosis?: No VTE Prior VTE?: No VTE Risk Level:: Medical - moderate - high VTE Device Contraindication: Treatment Not Indicated VTE Drug Contraindication: N/A - Med Ordered
[2025-02-04 16:17] LABS: Glucose, Whole Blood 122 mg/dL (60-115)
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
--- NOTE | 2025-02-04 17:00 | HO.SKINPHOTO ---
Location: Buttock Location: Left Knee Location: Left Toes
[2025-02-04 20:54] LABS: Glucose, Whole Blood 126 mg/dL (60-115)
[2025-02-04] MEDS: vancomycin HCL 750 MG in 0.9 % Sodium Chloride 250 ML 265 MG IV (21:04)
[2025-02-04] MEDS: QUEtiapine Fumarate 300 MG TABLET PO (21:12)
[2025-02-04] MEDS: Enoxaparin Sodium 40 MG/0.4 ML SYRINGE SUBCUT (22:42)
[2025-02-05] MEDS: HYDROmorphone HCl 1 MG/ML SYRINGE IVPUSH ×5 (02:58→20:22)
[2025-02-05] MEDS: Piperacillin Sodium/Tazobactam 4.5 GM in 0.9 % Sodium Chloride 100 ML IV ×4 (03:01→22:38)
[2025-02-05] MEDS: vancomycin HCL 125 MG CAPSULE PO ×4 (03:06→22:33)
[2025-02-05] MEDS: vancomycin HCL 750 MG in 0.9 % Sodium Chloride 250 ML 265 MG IV ×3 (03:33→20:06)
[2025-02-05 07:19] VITALS: BP 122/78; PULSE 83; RESP 18; TEMP 36.4; O2SAT 97
[2025-02-05 07:21] LABS: Glucose, Whole Blood 90 mg/dL (60-115)
[2025-02-05] MEDS: 0.9 % Sodium Chloride Flush 3 ML SYRINGE IVFLUSH ×2 (08:12→16:11)
[2025-02-05 09:07] VITALS: BP 136/72; PULSE 82; TEMP 37; O2SAT 96
[2025-02-05 09:24] VITALS: BP 136/72
[2025-02-05] MEDS: Escitalopram Oxalate 10 MG TABLET PO (09:24)
[2025-02-05] MEDS: Thiamine HCL 100 MG TABLET PO (09:24)
[2025-02-05] MEDS: PHENobarbitaL 30 MG TABLET 60 MG PO (09:24)
[2025-02-05] MEDS: lisinopriL 5 MG TABLET PO (09:24)
[2025-02-05] MEDS: Pregabalin 75 MG CAPSULE 225 MG PO ×2 (09:25→22:33)
[2025-02-05 11:18] LABS: Glucose, Whole Blood 94 mg/dL (60-115)
--- NOTE | 2025-02-05 13:27 | PM.CNGS ---
History of Present Illness Consult details Consult date: 02/05/25 Reason for consult: wound care Narrative: Complex 40-year-old gentleman with a history of Guillain-[place] syndrome and a history of a right BKA presented with nonhealing ulcers of the left 3rd and 4th toe. He states that his 1st and 2nd toe actually were amputated by Dr. Ackerman at [facility]. He originally was brought into the emergency room with complaints of back pain. He also was reporting alcohol abuse after the loss of his father. He now presents for evaluation regarding his lower extremities. At the time of my examination he was comfortable denied any significant pain. Review of Systems Review of Systems: Yes all other systems are reviewed and are negative Constitutional: Constitutional: Reports no additional constitutional complaints ENT: Reports Normal hearing present Cardiovascular: Cardiovascular: Denies chest pain, Denies chest pain at rest, Denies chest pain with activity and Denies pedal edema Respiratory: Respiratory: Denies cough Gastrointestinal: Gastrointestinal: Denies abdominal pain Musculoskeletal: Musculoskeletal: Denies abnormal gait, Denies muscle cramps and Denies radiating pain into limb Integumentary/Breasts: Skin/Breast: Denies skin ulcer and Denies wounds Neurologic: Reports Normal hearing present and Denies abnormal gait Psychiatric: Psychiatric: Reports no additional psychiatric complaints PMFSH Past Medical History Medical History Aftercare following right hip joint replacement surgery Bipolar disorder PTSD (post-traumatic stress disorder) Sacral decubitus ulcer Peripheral neuropathy Non-insulin dependent type 2 diabetes mellitus Guillain-[place] Family History Family history: reviewed and not pertinent Surgical History Surgical History History of total hip replacement Hx of right BKA Social History Social History Household Members: None Housing: House Do you presently have visiting nurse or other home services: No Alcohol intake: current Alcohol intake frequency: 3 or more drinks per day Alcohol type: hard liquor Comment: stand pivot to luz marina avila Patient Tobacco Use Status: Current everyday Tobacco user Tobacco use type: Cigarette Cigarette Packs Per Day: 1 Cigarettes Per Day: 20.0 Years Smoked: 29 years Second Hand Smoke Exposure: No service: No Meds Allergies Allergy/AdvReac Type Severity Reaction Status Date / Time baclofen Allergy Hives Verified 02/02/25 15:58 escitalopram [From Lexapro] Allergy Vomiting Verified 02/02/25 15:58 lithium Allergy Unresponsiv Verified 02/02/25 15:58 e metformin Allergy Unknown Verified 02/02/25 15:58 sulfamethoxazole Allergy Hives Verified 02/02/25 15:58 [From Bactrim] trimethoprim [From Bactrim] Allergy Hives Verified 02/02/25 15:58 Active Medications: Current Medications Acetaminophen (Acetaminophen 325 Mg Tablet) 650 mg PO Q6H PRN PRN Reason: Pain, Mild 1-3,fever,headache Calcium Carbonate (Calcium Carbonate 750 Mg Tab.Chew) 750 mg PO Q4H PRN PRN Reason: Heartburn Dextrose (Dextrose 50 % 25 Gm/50 Ml Syringe) 25 gm IVPUSH Q15M PRN; Protocol PRN Reason: per Hypoglycemia Standing Ord. Enoxaparin Sodium (Enoxaparin Sodium 40 Mg/0.4 Ml Syringe) 40 mg SUBCUT Q24H [facility] Last Admin: 02/04/25 22:42 Dose: 40 mg Escitalopram Oxalate (Escitalopram Oxalate 10 Mg Tablet) 10 mg PO DAILY [facility] Last Admin: 02/05/25 09:24 Dose: 10 mg Glucose (Glucose Gel 15 Gm Gel..Gram.) 15 gm PO Q15M PRN; Protocol PRN Reason: per Hypoglycemia Standing Ord. Hydromorphone HCl (Hydromorphone Hcl 1 Mg/Ml Syringe) 1 mg IVPUSH Q4H PRN; Protocol PRN Reason: Pain, Severe (Pain Scale 7-10) Last Admin: 02/05/25 12:07 Dose: 1 mg Piperacillin Sod/Tazobactam (Sod 4.5 gm/ Sodium Chloride) 100 mls @ 200 mls/hr IV Q6H [facility] Last Infusion: 02/05/25 10:22 Dose: Infused Vancomycin HCl 750 mg/ Sodium (Chloride) 265 mls @ 265 mls/hr IV Q8H [facility] Last Admin: 02/05/25 12:12 Dose: 265 mls/hr Insulin Human Lispro (Insulin Lispro 100 Unit/Ml 3 Ml Vial) 0 unit SUBCUT QIDACHS [facility]; Protocol Last Admin: 02/05/25 11:30 Dose: Not Given Lisinopril (Lisinopril 5 Mg Tablet) 5 mg PO DAILY [facility]; Protocol Last Admin: 02/05/25 09:24 Dose: 5 mg Magnesium Hydroxide (Milk Of Magnesia 30 Ml Oral.Susp) 30 ml PO DAILY PRN PRN Reason: Constipation Melatonin (Melatonin 3 Mg Tablet) 6 mg PO BEDTIME PRN PRN Reason: Insomnia Morphine Sulfate (Morphine Sulfate Immed Release 15 Mg Tablet) 15 mg PO Q8H PRN PRN Reason: Pain, Moderate(Pain Scale 4-6) Ondansetron HCl (Ondansetron Hcl 4 Mg/2 Ml Vial) 4 mg IVPUSH Q8H PRN PRN Reason: Nausea and Vomiting Pharmacy Consult (Consult Rx Etoh Phenob Im/Po) 1 each MISCELLANE ONCE PRN; Protocol PRN Reason: Consult order Pharmacy Consult (Consult Rx Vancomycin Dosing) 1 each MISCELLANE DAILY PRN PRN Reason: Consult order Phenobarbital (Phenobarbital 30 Mg Tablet) 30 mg PO BID [facility] Stop: 02/07/25 09:01 Phenobarbital (Phenobarbital 30 Mg Tablet) 30 mg PO DAILY [facility] Stop: 02/09/25 09:01 Pregabalin (Pregabalin 75 Mg Capsule) 225 mg PO BID [facility] Last Admin: 02/05/25 09:25 Dose: 225 mg Quetiapine Fumarate (Quetiapine Fumarate 300 Mg Tablet) 300 mg PO BEDTIME [facility] Last Admin: 02/04/25 21:12 Dose: 300 mg Sodium Chloride (0.9 % Sodium Chloride Flush 3 Ml Syringe) 3 ml IVFLUSH QSHIFT [facility] Last Admin: 02/05/25 08:12 Dose: 3 ml Thiamine HCl (Thiamine Hcl 100 Mg Tablet) 100 mg PO DAILY [facility] Last Admin: 02/05/25 09:24 Dose: 100 mg Vancomycin HCl (Vancomycin Hcl 125 Mg Capsule) 125 mg PO Q6H [facility] Last Admin: 02/05/25 09:24 Dose: 125 mg Home Medications ?Medication ?Instructions ?Recorded ?Confirmed ?Last Taken ?Type atorvastatin 40 mg tablet 40 mg PO DAILY 02/02/25 02/02/25 02/01/25 History escitalopram oxalate 10 mg tablet 10 mg PO DAILY 02/02/25 02/02/25 02/01/25 History glipizide 5 mg tablet 5 mg PO DAILY 02/02/25 02/02/25 02/01/25 History lisinopril 5 mg tablet 5 mg PO DAILY 02/02/25 02/02/25 02/01/25 History morphine 15 mg immediate release 15 mg PO Q8H PRN pain 02/02/25 02/02/25 Unknown History tablet pregabalin 225 mg capsule 225 mg PO BID 02/02/25 02/02/25 02/01/25 History quetiapine 300 mg tablet 300 mg PO BEDTIME 02/02/25 02/02/25 02/01/25 History Physical Exam Vital Signs: Vital Signs: Last Vital Signs Temp 98.6 F 02/05/25 09:07 Pulse 82 02/05/25 09:07 Resp 18 02/05/25 07:19 BP 136/72 02/05/25 09:24 Pulse Ox 96 02/05/25 09:07 O2 Del Method Room Air 02/05/25 09:07 BMI result Body Mass Index 34.7 Const: General: cooperative, healthy appearing and comfortable Orientation/consciousness: oriented to person, oriented to place and oriented to time HEENT: Head: Yes normal to inspection Neck: Neck: Yes normal visual inspection Carotids: no bruits Chest: Chest palpation & inspection: normal inspection of the chest Resp: Effort & Inspection: normal respiratory effort and able to speak in complete sentences Auscultation: clear to auscultation bilaterally, no crackles, no rales, no rhonchi and no wheezes Cardio: Other: Left side palpable dorsalis pedis pulse. Rate: regular rate Rhythm: regular rhythm Heart sounds: S1 normal heart sound present and S2 normal heart sound present Bruits: no carotid bruits Peripheral pulses: Peripheral pulses 2+ throughout GI: Inspection: Yes normal to inspection Skin: Wounds: no wounds Hair: normal Neuro: General: oriented to person, oriented to place and oriented to time Cranial nerves: Yes CN's II-XII intact bilaterally and Yes Normal hearing present Cognition (Neuro): normal cognition Motor exam (neuro): 5/5 motor strength present throughout Extrem: Other: Left 3rd and 4th toe dry eschar on the dorsum of those feet. General: No clubbing, No cyanosis and No edema Psych: Appearance: grossly normal Mental Status: mental status grossly normal Speech and movement: Normal speech and movement present Results Labs 02/04/25 05:42 02/04/25 05:42 Labs: Abnormal lab results 02/04/25 02/04/25 02/04/25 Range/Units 16:13 17:54 20:50 POC Glucose 122 H 126 H (60-115) mg/dL Random Vancomycin 21.0 H (15-20) mcg/mL Urine 02/02/25 Range/Units 20:39 Urine Color Dark Yellow Urine Appearance Clear Urine pH 5.5 (5.0-9.0) Ur Specific [place] >= 1.030 H (1.005-1.025) Urine Protein Trace (Neg-Trace) mg/dL Urine Glucose (UA) Negative (Negative) mg/dL All other labs normal. Assessment and Plan (1) Osteomyelitis of foot: Qualifiers: Osteomyelitis type: unspecified type Laterality: left Qualified Code(s): M86.9 - Osteomyelitis, unspecified Status: Acute Plan Left 3rd and 4th toe dry ulcerations the dorsum of the toes. The current time they appear to be stable. I did review the x-ray dated 02/02/2025 where they did mention subtle erosive changes on the proximal phalanx of the 3rd toe. At the current time would recommend conservative management as he has already had prior amputation. Continue with antibiotics and medical care. We will follow peripherally with you. Thank you for allowing us to assist in his care. Procedures Date of Service Date of Service: 02/05/25
[2025-02-05 14:04] LABS: Estimated Glomerular Filt Rate > 60
--- NOTE | 2025-02-05 14:39 | P.PNIM_ITS ---
Subjective Subjective Date of Service: 02/05/25 Interval History: CIWA remains negative. Remains afebrile Review of Systems Denies chest pain Denies shortness of breath Denies nausea vomiting diarrhea Denies fever chills Admits to sacral wound pain Physical Exam 2 Vital Signs: Vital Signs: Last Vital Signs Temp 98.6 F 02/05/25 09:07 Pulse 82 02/05/25 09:07 Resp 18 02/05/25 07:19 BP 136/72 02/05/25 09:24 Pulse Ox 96 02/05/25 09:07 O2 Del Method Room Air 02/05/25 09:07 BMI result Body Mass Index 34.7 Const: Other: Awake alert no acute distress Resp: Other: Clear to auscultation bilaterally no rales rhonchi or wheezes Cardio: Other: No S4; positive S1-S2; no S3 murmurs rubs or gallops GI: Other: Soft nontender nondistended normoactive bowel sounds Skin: Other: See admission photos for details Extrem: Other: See admission photos for left foot/toe upgrade Objective Data Active Medications Acetaminophen (Acetaminophen 325 Mg Tablet) 650 mg PO Q6H PRN PRN Reason: Pain, Mild 1-3,fever,headache Calcium Carbonate (Calcium Carbonate 750 Mg Tab.Chew) 750 mg PO Q4H PRN PRN Reason: Heartburn Dextrose (Dextrose 50 % 25 Gm/50 Ml Syringe) 25 gm IVPUSH Q15M PRN; Protocol PRN Reason: per Hypoglycemia Standing Ord. Enoxaparin Sodium (Enoxaparin Sodium 40 Mg/0.4 Ml Syringe) 40 mg SUBCUT Q24H [facility] Last Admin: 02/04/25 22:42 Dose: 40 mg Documented By: ABIGAIL Escitalopram Oxalate (Escitalopram Oxalate 10 Mg Tablet) 10 mg PO DAILY [facility] Last Admin: 02/05/25 09:24 Dose: 10 mg Documented By: ALVIN Glucose (Glucose Gel 15 Gm Gel..Gram.) 15 gm PO Q15M PRN; Protocol PRN Reason: per Hypoglycemia Standing Ord. Hydromorphone HCl (Hydromorphone Hcl 1 Mg/Ml Syringe) 1 mg IVPUSH Q4H PRN; Protocol PRN Reason: Pain, Severe (Pain Scale 7-10) Last Admin: 02/05/25 12:07 Dose: 1 mg Documented By: ALVIN Piperacillin Sod/Tazobactam (Sod 4.5 gm/ Sodium Chloride) 100 mls @ 200 mls/hr IV Q6H [facility] Last Infusion: 02/05/25 10:22 Dose: Infused Documented By: ALVIN Vancomycin HCl 750 mg/ Sodium (Chloride) 265 mls @ 265 mls/hr IV Q8H [facility] Last Infusion: 02/05/25 13:12 Dose: Infused Documented By: ALVIN Insulin Human Lispro (Insulin Lispro 100 Unit/Ml 3 Ml Vial) 0 unit SUBCUT QIDACHS [facility]; Protocol Last Admin: 02/05/25 11:30 Dose: Not Given Documented By: ALVIN Non-Admin Reason: No Insulin Coverage Lisinopril (Lisinopril 5 Mg Tablet) 5 mg PO DAILY [facility]; Protocol Last Admin: 02/05/25 09:24 Dose: 5 mg Documented By: ALVIN Magnesium Hydroxide (Milk Of Magnesia 30 Ml Oral.Susp) 30 ml PO DAILY PRN PRN Reason: Constipation Melatonin (Melatonin 3 Mg Tablet) 6 mg PO BEDTIME PRN PRN Reason: Insomnia Morphine Sulfate (Morphine Sulfate Immed Release 15 Mg Tablet) 15 mg PO Q8H PRN PRN Reason: Pain, Moderate(Pain Scale 4-6) Ondansetron HCl (Ondansetron Hcl 4 Mg/2 Ml Vial) 4 mg IVPUSH Q8H PRN PRN Reason: Nausea and Vomiting Pharmacy Consult (Consult Rx Etoh Phenob Im/Po) 1 each MISCELLANE ONCE PRN; Protocol PRN Reason: Consult order Pharmacy Consult (Consult Rx Vancomycin Dosing) 1 each MISCELLANE DAILY PRN PRN Reason: Consult order Phenobarbital (Phenobarbital 30 Mg Tablet) 30 mg PO BID [facility] Stop: 02/07/25 09:01 Phenobarbital (Phenobarbital 30 Mg Tablet) 30 mg PO DAILY [facility] Stop: 02/09/25 09:01 Pregabalin (Pregabalin 75 Mg Capsule) 225 mg PO BID [facility] Last Admin: 02/05/25 09:25 Dose: 225 mg Documented By: ALVIN Quetiapine Fumarate (Quetiapine Fumarate 300 Mg Tablet) 300 mg PO BEDTIME [facility] Last Admin: 02/04/25 21:12 Dose: 300 mg Documented By: HO.NATALSA Sodium Chloride (0.9 % Sodium Chloride Flush 3 Ml Syringe) 3 ml IVFLUSH QSHIFT [facility] Last Admin: 02/05/25 08:12 Dose: 3 ml Documented By: ALVIN Thiamine HCl (Thiamine Hcl 100 Mg Tablet) 100 mg PO DAILY [facility] Last Admin: 02/05/25 09:24 Dose: 100 mg Documented By: ALVIN Vancomycin HCl (Vancomycin Hcl 125 Mg Capsule) 125 mg PO Q6H [facility] Last Admin: 02/05/25 09:24 Dose: 125 mg Documented By: ALVIN Labs 02/04/25 05:42 02/05/25 13:41 Labs: Laboratory Results - last 24 hr 02/04/25 02/04/25 02/04/25 16:13 17:54 20:50 Hold Purple Top Estim Creat Clear Calc Estimated GFR POC Glucose 122 H 126 H Random Vancomycin 21.0 H 02/05/25 02/05/25 02/05/25 07:18 11:14 13:41 Hold Purple Top SEE NOTE Estim Creat Clear Calc 147.0 Estimated GFR > 60 POC Glucose 90 94 Random Vancomycin Microbiology Microbiology Results: Microbiology 02/02/25 17:46 Blood Culture - Preliminary Blood - Venous No growth after 48 hours. 02/02/25 17:39 Blood Culture - Preliminary Blood - Venous No growth after 48 hours. 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 1.Sepsis due to acute osteomyelitis of left proximal phalanx, 3rd toe -vanco/Zosyn (4) -ID consult appreciated. We will discuss further treatment in a.m. -vascular surgery consult... Conservative is only no indication for surgery 2.C diff (prior to hospitalization) -vanco as ordered 3.Alcohol withdrawal -phenobarb protocol . Completed -observe on CIWA scale... Has remained 0. -p.r.n. dosing as needed 3.Large sacral decubitus ulcer/chronic osteomyelitis of sacrum and coccyx/chronic osteomyelitis of right ischial tuberosity with ischial decubitus ulcer -antibiotics as above -general surgery/Wound Care consult...conservatives 4.Liver cirrhosis -ammonia normal -trend LFTs 5.Qis-xlopibp-sqxpudysb diabetes mellitus -ADA diet -lispro correctional scale -adjust as indicated 6.Hypertension -acceptable control on current therapies -adjust as indicated 7.Section 12 by PD - Care team consult in a.mPineda Bonilla Full code Requires ongoing hospitalization for IV antibiotics to treat osteomyelitis and specialty consultation Quality Stroke Does the patient have a stroke diagnosis?: No VTE Prior VTE?: No VTE Risk Level:: Medical - moderate - high VTE Device Contraindication: Treatment Not Indicated VTE Drug Contraindication: N/A - Med Ordered
--- NOTE | 2025-02-05 15:11 | HO.ADDICTCON ---
History of Present Illness Date of Service: 02/05/2025 Chief Complaint: unable to care Reason for Consult: AUD Sources of Information: patient interviewed and chart reviewed HPI Narrative: Patient is a 40 year old male with medical history that includes T2DM, guilliam burre syndrome, osteomyelitis, and PTSD. He is medically admitted after presenting to [facility] ED on [address] for concerns that he was unable to care for himself. Patient utilized wheelchair for ambulation Per ED note, patient was found at home, intoxicated, home unkept and patient covered in feces. Consult requested due to history of AUD and withdrawal. Patient seen in room 346. He is awake, alert, engagd in interview. Very pleasant, extremely tangential and overly inclusive, requiring frequent redirection to answer any question. Patient initially reporting that he was a binge drinker , then later stating he does not have an issue and is allowed to have drinks when he wants. He reports drinking 3x/week, varying amounts, from 4-5 shots to 2 L vodka each session. Denies any history of admissions to ATS level of care, however states he has been treated for alcohol withdrawal during medical admissions such as this one. He reports problematic drinking started in August when his father's dementia worsened. He denies any withdrawal sx at this time, and appears overall very comfortable. Patient talked about history of morphine prescriptions, which he states he stopped, cold turkey because he did not feel they were doing anything for him. He states he has done this multiple times, and knows how to manage the withdrawal sx at home. He stated that he felt fine without any opiates, and knows he doesn't need them--despite receiving IV Dilaudid during this admission for pain. Reporting back pain, which is likely related to wound on sacrum. MassPat shows he has been filling Morphine IR 15mg TID every month for several months. Last 28 day supply filled 01/17. He states last dose of morphine was at the beginning of January, and shared, the first 3 days of withdrawal are hell, but after that it's all mental . UDS + barbituates at admission He spoke of his father, who in December of this year, and stated that his father helped him when he was withdrawing at home. He reports family history of TARIQ and AUD --mother. Review of Systems Constitutional: Reports as per HPI (reporting back pain ) Diagnostics Vital Signs (24Hr): Vital Signs - 24 hr 02/04/25 15:45 02/04/25 23:56 02/05/25 07:19 Temperature 97.9 F 97.2 F 97.6 F Pulse Rate 96 96 83 Respiratory Rate 16 16 18 Blood Pressure 128/65 111/67 122/78 Pulse Oximetry 97 98 97 Oxygen Delivery Method Room Air Room Air Room Air 02/05/25 09:07 02/05/25 09:24 Temperature 98.6 F Pulse Rate 82 Respiratory Rate Blood Pressure 136/72 136/72 Pulse Oximetry 96 Oxygen Delivery Method Room Air BMI result Body Mass Index 34.7 Labs 02/04/25 05:42 02/05/25 13:41 Labs: Laboratory Results - last 48 hr 02/03/25 02/03/25 02/03/25 16:12 18:15 20:31 WBC RBC Hgb Hct MCV MCH MCHC RDW Plt Count MPV Immature Gran % (Auto) Neut % (Auto) Lymph % (Auto) [place] % (Auto) Eos % (Auto) Baso % (Auto) Lymph # (Auto) [place] # (Auto) Eos # (Auto) Baso # (Auto) Abs Immat Gran (auto) Absolute Neuts (auto) Absolute Nucleated RBC Nucleated RBC % (auto) Hold Purple Top Sodium Potassium Chloride Carbon Dioxide Anion Gap BUN Creatinine Estim Creat Clear Calc Estimated GFR POC Glucose 164 H 189 H Fasting Glucose Calcium Total Bilirubin AST ALT Alkaline Phosphatase Total Protein Albumin Random Vancomycin 7.0 L 02/04/25 02/04/25 02/04/25 05:42 06:05 07:32 WBC 4.1 L RBC 3.70 L Hgb 11.2 L Hct 33.2 L MCV 89.7 MCH 30.3 MCHC 33.7 RDW 17.2 H Plt Count 157 L MPV 10.7 Immature Gran % (Auto) 0.2 Neut % (Auto) 39.9 L Lymph % (Auto) 41.4 H [place] % (Auto) 15.0 H Eos % (Auto) 3.0 Baso % (Auto) 0.5 Lymph # (Auto) 1.7 [place] # (Auto) 0.6 Eos # (Auto) 0.1 Baso # (Auto) 0.0 Abs Immat Gran (auto) 0.01 Absolute Neuts (auto) 1.6 L Absolute Nucleated RBC 0.000 Nucleated RBC % (auto) 0.0 Hold Purple Top Sodium 140 Potassium 4.1 Chloride 107 Carbon Dioxide 26 Anion Gap 11 L BUN 8 L Creatinine 0.51 Estim Creat Clear Calc 262.3 Estimated GFR > 60 POC Glucose 106 131 H Fasting Glucose 93 Calcium 8.9 D Total Bilirubin 0.4 AST 34 ALT 45 H Alkaline Phosphatase 94 Total Protein 5.8 L Albumin 3.6 Random Vancomycin 02/04/25 02/04/25 02/04/25 11:25 16:13 17:54 WBC RBC Hgb Hct MCV MCH MCHC RDW Plt Count MPV Immature Gran % (Auto) Neut % (Auto) Lymph % (Auto) [place] % (Auto) Eos % (Auto) Baso % (Auto) Lymph # (Auto) [place] # (Auto) Eos # (Auto) Baso # (Auto) Abs Immat Gran (auto) Absolute Neuts (auto) Absolute Nucleated RBC Nucleated RBC % (auto) Hold Purple Top Sodium Potassium Chloride Carbon Dioxide Anion Gap BUN Creatinine Estim Creat Clear Calc Estimated GFR POC Glucose 114 122 H Fasting Glucose Calcium Total Bilirubin AST ALT Alkaline Phosphatase Total Protein Albumin Random Vancomycin 21.0 H 02/04/25 02/05/25 02/05/25 20:50 07:18 11:14 WBC RBC Hgb Hct MCV MCH MCHC RDW Plt Count MPV Immature Gran % (Auto) Neut % (Auto) Lymph % (Auto) [place] % (Auto) Eos % (Auto) Baso % (Auto) Lymph # (Auto) [place] # (Auto) Eos # (Auto) Baso # (Auto) Abs Immat Gran (auto) Absolute Neuts (auto) Absolute Nucleated RBC Nucleated RBC % (auto) Hold Purple Top Sodium Potassium Chloride Carbon Dioxide Anion Gap BUN Creatinine Estim Creat Clear Calc Estimated GFR POC Glucose 126 H 90 94 Fasting Glucose Calcium Total Bilirubin AST ALT Alkaline Phosphatase Total Protein Albumin Random Vancomycin 02/05/25 13:41 WBC RBC Hgb Hct MCV MCH MCHC RDW Plt Count MPV Immature Gran % (Auto) Neut % (Auto) Lymph % (Auto) [place] % (Auto) Eos % (Auto) Baso % (Auto) Lymph # (Auto) [place] # (Auto) Eos # (Auto) Baso # (Auto) Abs Immat Gran (auto) Absolute Neuts (auto) Absolute Nucleated RBC Nucleated RBC % (auto) Hold Purple Top SEE NOTE Sodium Potassium Chloride Carbon Dioxide Anion Gap BUN Creatinine 0.91 Estim Creat Clear Calc 147.0 Estimated GFR > 60 POC Glucose Fasting Glucose Calcium Total Bilirubin AST ALT Alkaline Phosphatase Total Protein Albumin Random Vancomycin Mental Status Exam Mental Status Exam Level of Consciousness: Awake and Alert Patient Behavior: Talkative Affect Description: Expansive Speech Pattern: Excessive and Pressured Thought Process: Racing Thought Content: positive for [place], positive for Circumstantial and positive for Tangential Judgement: Poor (poor insight) Medications Medications Current Medications Acetaminophen (Acetaminophen 325 Mg Tablet) 650 mg PO Q6H PRN PRN Reason: Pain, Mild 1-3,fever,headache Calcium Carbonate (Calcium Carbonate 750 Mg Tab.Chew) 750 mg PO Q4H PRN PRN Reason: Heartburn Dextrose (Dextrose 50 % 25 Gm/50 Ml Syringe) 25 gm IVPUSH Q15M PRN; Protocol PRN Reason: per Hypoglycemia Standing Ord. Enoxaparin Sodium (Enoxaparin Sodium 40 Mg/0.4 Ml Syringe) 40 mg SUBCUT Q24H [facility] Last Admin: 02/04/25 22:42 Dose: 40 mg Escitalopram Oxalate (Escitalopram Oxalate 10 Mg Tablet) 10 mg PO DAILY [facility] Last Admin: 02/05/25 09:24 Dose: 10 mg Glucose (Glucose Gel 15 Gm Gel..Gram.) 15 gm PO Q15M PRN; Protocol PRN Reason: per Hypoglycemia Standing Ord. Hydromorphone HCl (Hydromorphone Hcl 1 Mg/Ml Syringe) 1 mg IVPUSH Q4H PRN; Protocol PRN Reason: Pain, Severe (Pain Scale 7-10) Last Admin: 02/05/25 12:07 Dose: 1 mg Piperacillin Sod/Tazobactam (Sod 4.5 gm/ Sodium Chloride) 100 mls @ 200 mls/hr IV Q6H [facility] Last Infusion: 02/05/25 10:22 Dose: Infused Vancomycin HCl 750 mg/ Sodium (Chloride) 265 mls @ 265 mls/hr IV Q8H [facility] Last Infusion: 02/05/25 13:12 Dose: Infused Insulin Human Lispro (Insulin Lispro 100 Unit/Ml 3 Ml Vial) 0 unit SUBCUT QIDACHS [facility]; Protocol Last Admin: 02/05/25 11:30 Dose: Not Given Lisinopril (Lisinopril 5 Mg Tablet) 5 mg PO DAILY [facility]; Protocol Last Admin: 02/05/25 09:24 Dose: 5 mg Magnesium Hydroxide (Milk Of Magnesia 30 Ml Oral.Susp) 30 ml PO DAILY PRN PRN Reason: Constipation Melatonin (Melatonin 3 Mg Tablet) 6 mg PO BEDTIME PRN PRN Reason: Insomnia Morphine Sulfate (Morphine Sulfate Immed Release 15 Mg Tablet) 15 mg PO Q8H PRN PRN Reason: Pain, Moderate(Pain Scale 4-6) Ondansetron HCl (Ondansetron Hcl 4 Mg/2 Ml Vial) 4 mg IVPUSH Q8H PRN PRN Reason: Nausea and Vomiting Pharmacy Consult (Consult Rx Etoh Phenob Im/Po) 1 each MISCELLANE ONCE PRN; Protocol PRN Reason: Consult order Pharmacy Consult (Consult Rx Vancomycin Dosing) 1 each MISCELLANE DAILY PRN PRN Reason: Consult order Phenobarbital (Phenobarbital 30 Mg Tablet) 30 mg PO BID [facility] Stop: 02/07/25 09:01 Phenobarbital (Phenobarbital 30 Mg Tablet) 30 mg PO DAILY [facility] Stop: 02/09/25 09:01 Pregabalin (Pregabalin 75 Mg Capsule) 225 mg PO BID [facility] Last Admin: 02/05/25 09:25 Dose: 225 mg Quetiapine Fumarate (Quetiapine Fumarate 300 Mg Tablet) 300 mg PO BEDTIME [facility] Last Admin: 02/04/25 21:12 Dose: 300 mg Sodium Chloride (0.9 % Sodium Chloride Flush 3 Ml Syringe) 3 ml IVFLUSH QSHIFT [facility] Last Admin: 02/05/25 08:12 Dose: 3 ml Thiamine HCl (Thiamine Hcl 100 Mg Tablet) 100 mg PO DAILY [facility] Last Admin: 02/05/25 09:24 Dose: 100 mg Vancomycin HCl (Vancomycin Hcl 125 Mg Capsule) 125 mg PO Q6H [facility] Last Admin: 02/05/25 09:24 Dose: 125 mg Allergies Allergies Allergy/AdvReac Type Severity Reaction Status Date / Time baclofen Allergy Hives Verified 02/02/25 15:58 escitalopram [From Lexapro] Allergy Vomiting Verified 02/02/25 15:58 lithium Allergy Unresponsiv Verified 02/02/25 15:58 e metformin Allergy Unknown Verified 02/02/25 15:58 sulfamethoxazole Allergy Hives Verified 02/02/25 15:58 [From Bactrim] trimethoprim [From Bactrim] Allergy Hives Verified 02/02/25 15:58 Assessment & Plan Assessment & Plan (1) Alcohol withdrawal: Status: Acute Code(s): F10.939 - Alcohol use, unspecified with withdrawal, unspecified Assessment and Plan: withdrawal resolved limited to no insight regarding alcohol use patient declines intervention including MIGUEL or appt for AUD outpatient treatment Total time managing care of this patient today _45___ minutes. 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 Family History Family history: reviewed and not pertinent Surgical History Surgical History History of total hip replacement Hx of right BKA Social History Social History Household Members: None Housing: House Do you presently have visiting nurse or other home services: No Alcohol intake: current Alcohol intake frequency: 3 or more drinks per day Alcohol type: hard liquor Comment: stand pivot to luz marina avila Patient Tobacco Use Status: Current everyday Tobacco user Tobacco use type: Cigarette Cigarette Packs Per Day: 1 Cigarettes Per Day: 20.0 Years Smoked: 29 years Second Hand Smoke Exposure: No service: No
[2025-02-05 15:22] VITALS: BP 124/83; PULSE 80; RESP 18; TEMP 36.2; O2SAT 98
--- NOTE | 2025-02-05 15:22 | P.PNGS_ITS ---
Subjective Subjective Date of Service: 02/05/25 <Harley Dan PA-C - Last Filed: 02/05/25 15:51> 02/05/25 <Jose Elias Sellers MD - Last Filed: 02/05/25 15:52> Interval history: Patient doing well. No new complaints. Continues to endorse some pain at the sacral wound and left toes. Patient states he has minimal sensation at baseline. <Harley Dan PA-C - Last Filed: 02/05/25 15:51> Physical Exam 2 Vital Signs: Vital Signs: Last Vital Signs Temp 98.6 F 02/05/25 09:07 Pulse 82 02/05/25 09:07 Resp 18 02/05/25 07:19 BP 136/72 02/05/25 09:24 Pulse Ox 96 02/05/25 09:07 O2 Del Method Room Air 02/05/25 09:07 BMI result Body Mass Index 34.7 <Harley Dan PA-C - Last Filed: 02/05/25 15:51> GI: Other: Left 3rd and 4th toe: Small 1 x 1 cm wounds with scabbing, no drainage Sacral: Significant scarring, skin flap, dressings in place <Harley Dan PA-C - Last Filed: 02/05/25 15:51> Objective Data Active Medications Acetaminophen (Acetaminophen 325 Mg Tablet) 650 mg PO Q6H PRN PRN Reason: Pain, Mild 1-3,fever,headache Calcium Carbonate (Calcium Carbonate 750 Mg Tab.Chew) 750 mg PO Q4H PRN PRN Reason: Heartburn Dextrose (Dextrose 50 % 25 Gm/50 Ml Syringe) 25 gm IVPUSH Q15M PRN; Protocol PRN Reason: per Hypoglycemia Standing Ord. Enoxaparin Sodium (Enoxaparin Sodium 40 Mg/0.4 Ml Syringe) 40 mg SUBCUT Q24H [facility] Last Admin: 02/04/25 22:42 Dose: 40 mg Documented By: ABIGAIL Escitalopram Oxalate (Escitalopram Oxalate 10 Mg Tablet) 10 mg PO DAILY [facility] Last Admin: 02/05/25 09:24 Dose: 10 mg Documented By: ALVIN Glucose (Glucose Gel 15 Gm Gel..Gram.) 15 gm PO Q15M PRN; Protocol PRN Reason: per Hypoglycemia Standing Ord. Hydromorphone HCl (Hydromorphone Hcl 1 Mg/Ml Syringe) 1 mg IVPUSH Q4H PRN; Protocol PRN Reason: Pain, Severe (Pain Scale 7-10) Last Admin: 02/05/25 12:07 Dose: 1 mg Documented By: ALVIN Piperacillin Sod/Tazobactam (Sod 4.5 gm/ Sodium Chloride) 100 mls @ 200 mls/hr IV Q6H [facility] Last Infusion: 02/05/25 10:22 Dose: Infused Documented By: ALVIN Vancomycin HCl 750 mg/ Sodium (Chloride) 265 mls @ 265 mls/hr IV Q8H [facility] Last Infusion: 02/05/25 13:12 Dose: Infused Documented By: ALVIN Insulin Human Lispro (Insulin Lispro 100 Unit/Ml 3 Ml Vial) 0 unit SUBCUT QIDACHS [facility]; Protocol Last Admin: 02/05/25 11:30 Dose: Not Given Documented By: ALVIN Non-Admin Reason: No Insulin Coverage Lisinopril (Lisinopril 5 Mg Tablet) 5 mg PO DAILY [facility]; Protocol Last Admin: 02/05/25 09:24 Dose: 5 mg Documented By: ALVIN Magnesium Hydroxide (Milk Of Magnesia 30 Ml Oral.Susp) 30 ml PO DAILY PRN PRN Reason: Constipation Melatonin (Melatonin 3 Mg Tablet) 6 mg PO BEDTIME PRN PRN Reason: Insomnia Morphine Sulfate (Morphine Sulfate Immed Release 15 Mg Tablet) 15 mg PO Q8H PRN PRN Reason: Pain, Moderate(Pain Scale 4-6) Ondansetron HCl (Ondansetron Hcl 4 Mg/2 Ml Vial) 4 mg IVPUSH Q8H PRN PRN Reason: Nausea and Vomiting Pharmacy Consult (Consult Rx Etoh Phenob Im/Po) 1 each MISCELLANE ONCE PRN; Protocol PRN Reason: Consult order Pharmacy Consult (Consult Rx Vancomycin Dosing) 1 each MISCELLANE DAILY PRN PRN Reason: Consult order Phenobarbital (Phenobarbital 30 Mg Tablet) 30 mg PO BID [facility] Stop: 02/07/25 09:01 Phenobarbital (Phenobarbital 30 Mg Tablet) 30 mg PO DAILY [facility] Stop: 02/09/25 09:01 Pregabalin (Pregabalin 75 Mg Capsule) 225 mg PO BID [facility] Last Admin: 02/05/25 09:25 Dose: 225 mg Documented By: ALVIN Quetiapine Fumarate (Quetiapine Fumarate 300 Mg Tablet) 300 mg PO BEDTIME [facility] Last Admin: 02/04/25 21:12 Dose: 300 mg Documented By: ABIGAIL Sodium Chloride (0.9 % Sodium Chloride Flush 3 Ml Syringe) 3 ml IVFLUSH QSHIFT [facility] Last Admin: 02/05/25 08:12 Dose: 3 ml Documented By: ALVIN Thiamine HCl (Thiamine Hcl 100 Mg Tablet) 100 mg PO DAILY [facility] Last Admin: 02/05/25 09:24 Dose: 100 mg Documented By: ALVIN Vancomycin HCl (Vancomycin Hcl 125 Mg Capsule) 125 mg PO Q6H [facility] Last Admin: 02/05/25 09:24 Dose: 125 mg Documented By: ALVIN <Harley Dan PA-C - Last Filed: 02/05/25 15:51> Labs CBC & Chem 7: 02/04/25 05:42 02/05/25 13:41 <Harley Dan PA-C - Last Filed: 02/05/25 15:51> Labs: Laboratory Results - last 24 hr 02/04/25 02/04/25 02/04/25 16:13 17:54 20:50 Hold Purple Top Estim Creat Clear Calc Estimated GFR POC Glucose 122 H 126 H Random Vancomycin 21.0 H 02/05/25 02/05/25 02/05/25 07:18 11:14 13:41 Hold Purple Top SEE NOTE Estim Creat Clear Calc 147.0 Estimated GFR > 60 POC Glucose 90 94 Random Vancomycin <Harley Dan PA-C - Last Filed: 02/05/25 15:51> Microbiology Microbiology Results: Microbiology 02/02/25 17:46 Blood Culture - Preliminary Blood - Venous No growth after 48 hours. 02/02/25 17:39 Blood Culture - Preliminary Blood - Venous No growth after 48 hours. <Harley Dan PA-C - Last Filed: 02/05/25 15:51> Procedures Date of Service Date of Service: 02/05/25 <Harley Dan PA-C - Last Filed: 02/05/25 15:51> 02/05/25 <Jose Elias Sellers MD - Last Filed: 02/05/25 15:52> Progress Note: A&P Assessment and plan (1) Sacral decubitus ulcer: Status: Acute <Harley Dan PA-C - Last Filed: 02/05/25 15:51> (2) Osteomyelitis of foot: Status: Acute <Harley Dan PA-C - Last Filed: 02/05/25 15:51> Assessment and Plan: The patient has the patient has a superficial small ulcer on the 3rd toe and the 4th toe dorsally on the left side Small ulcer as well on the sacral area Both areas do not appear to require debridement Suggestion of osteomyelitis on imaging for the 3rd toe No surgical intervention planned at this time Antibiotic treatment Patient instructed on good care of the foot, along with good blood sugar control Seen and examined independently <Jose Elias Sellers MD - Last Filed: 02/05/25 15:52> Assessment and Plan: 40-year-old male with a complex medical history being followed for sacral wound and left 3rd toe osteomyelitis. Sacral wound dressings are in place, continue with recommendations for [id number] dressing changes frequent position changes. The toe wounds have scabbed over, are currently not draining, mildly tender to touch. Patient is on vancomycin for osteomyelitis. Vascular consult appreciated. At this time no plan for surgical intervention of amputation of the left 3rd toe. Agree with vascular his recommendation to treat this conservatively with antibiotics and wound care. We will continue to follow peripherally throughout this stay. <Harley Dan PA-C - Last Filed: 02/05/25 15:51> Time Spent With Patient Time: Total time managing care of this patient today ____ minutes. <Harley Dan PA-C - Last Filed: 02/05/25 15:51> Quality Stroke Does the patient have a stroke diagnosis?: No <Harley Dan PA-C - Last Filed: 02/05/25 15:51> VTE Prior VTE?: No <DENAE Malave Last Filed: 02/05/25 15:51> VTE Risk Level:: Medical - moderate - high <Harley Dan PA-C - Last Filed: 02/05/25 15:51> VTE Device Contraindication: Treatment Not Indicated <Harley Dan PA-C - Last Filed: 02/05/25 15:51> VTE Drug Contraindication: N/A - Med Ordered <Harley Dan PA-C - Last Filed: 02/05/25 15:51>
--- NOTE | 2025-02-05 15:39 | MHC.CM.PN ---
per rrounds pt not dc ready pt to have amputation
[2025-02-05 16:30] LABS: Glucose, Whole Blood 105 mg/dL (60-115)
[2025-02-05 18:39] LABS: Vancomycin Random 15.7 mcg/mL (15-20)
[2025-02-05 20:28] LABS: Glucose, Whole Blood 95 mg/dL (60-115)
[2025-02-05] MEDS: PHENobarbitaL 30 MG TABLET PO (22:33)
[2025-02-05] MEDS: QUEtiapine Fumarate 300 MG TABLET PO (22:33)
[2025-02-05] MEDS: Enoxaparin Sodium 40 MG/0.4 ML SYRINGE SUBCUT (22:35)
[2025-02-06] VITALS: BP 110/74; PULSE 83; RESP 18; TEMP 37; O2SAT 98
[2025-02-06] MEDS: HYDROmorphone HCl 1 MG/ML SYRINGE IVPUSH ×4 (01:07→13:33)
[2025-02-06] MEDS: vancomycin HCL 750 MG in 0.9 % Sodium Chloride 250 ML 265 MG IV ×2 (03:55→11:56)
[2025-02-06] MEDS: vancomycin HCL 125 MG CAPSULE PO ×2 (05:15→09:20)
[2025-02-06] MEDS: Piperacillin Sodium/Tazobactam 4.5 GM in 0.9 % Sodium Chloride 100 ML IV ×2 (05:17→09:26)
[2025-02-06 06:55] LABS: Estimated Glomerular Filt Rate > 60
[2025-02-06 07:28] VITALS: BP 116/72; PULSE 78; RESP 17; TEMP 36.4; O2SAT 98
[2025-02-06 07:36] LABS: Glucose, Whole Blood 101 mg/dL (60-115)
[2025-02-06] MEDS: lisinopriL 5 MG TABLET PO (09:20)
[2025-02-06] MEDS: Pregabalin 75 MG CAPSULE 225 MG PO (09:20)
[2025-02-06] MEDS: Thiamine HCL 100 MG TABLET PO (09:20)
[2025-02-06] MEDS: Escitalopram Oxalate 10 MG TABLET PO (09:20)
[2025-02-06] MEDS: 0.9 % Sodium Chloride Flush 3 ML SYRINGE IVFLUSH (09:21)
[2025-02-06] MEDS: PHENobarbitaL 30 MG TABLET PO (09:21)
[2025-02-06 11:15] LABS: Glucose, Whole Blood 165 mg/dL (60-115)
[2025-02-06] MEDS: Insulin Lispro 100 UNIT/ML 3 ML VIAL SUBCUT (11:56)
--- NOTE | 2025-02-06 14:09 | P.DS_ITS ---
DS: Providers Provider Date of Service: 02/06/25 Date of admission: 02/02/25 20:23 Date of discharge: 02/06/25 Primary care physician: None Physician Consults: 02/02/25 21:18 Consult to General Surgery Routine Consulting Provider: [facility] [facility] Reason for consultation: decubitus ulcer ?debridement 02/02/25 21:26 Addiction Medicine Provider Routine Consulting Provider: Addiction Covering Reason for consultation: Alcohol use disorder Consult to Infectious Diseases Routine Consulting Provider: [facility] [place] [facility] Reason for consultation: Left toe osteomyelitis, C diff 02/03/25 14:09 Consult to Wound Care Routine Reason for consultation: sacrum decubiti ulcer,left knee ulcer,left foot 3,4 th toe ulceration Has provider been notified: Yes 02/04/25 13:38 Consult to Vascular Surgery Routine Consulting Provider: [facility] [place] [facility] Reason for consultation: Osteo left toes Has provider been notified: Yes 02/06/25 10:10 Inpt CARE Team Crisis Consult Stat Comment: Reason for consultation: Section 35 DS: Diagnosis Discharge Diagnosis (1) Alcohol withdrawal: Status: Acute DS: Summary Hospital Course Hospital Course: 40-year-old male with pertinent history of [place]illian [place] syndrome wheelchair- bound, peripheral vascular disease status post right BKA, peripheral neuropathy, sacral decubitus ulcer, type 2 [id number] diabetes mellitus, hypertension, alcohol use disorder, mood disorder with history of SI, right hip osteoarthritis status post replacement who was brought to the emergency department on a section 35 signed by PD for patient being unable to care for self. Patient states he was in detox about a month ago. He found out that his father at [facility] and he would not be able to recover his father's body so he was depressed and started drinking liquor every day. His last drink was on the day of presentation. Does have history of alcohol withdrawal. No history of alcohol withdrawal seizures. Patient complaining of lower back pain due to his sacral wound. Patient states he is on p.o. vancomycin for C diff and thinks he has a few doses left. He is wheelchair-bound. He does report chills but no documented fever, no chest pain, no palpitations, shortness of breath, abdominal pain. No SI or HI at the time of admission. In the emergency department, imaging with 3rd toe osteomyelitis and septic arthritis. Patient was initiated on phenobarb protocol for alcohol withdrawal. Hospital course Patient admitted to general medical floor on phenobarb protocol. During this admission he demonstrated no signs of acute alcohol withdrawal. He was seen in consultation by vascular surgery for the osteo of his 3rd toe. Vascular felt there was no need for surgical intervention and conservative could be implicated. Seen in consultation by ID who recommended long-term antibiotics however the declined. Discussed with ID; given the likelihood that this is a chronic osteo 2 weeks of linezolid was ordered and patient has agreed to take it. At this point in time he has no suicidal ideation has been seen by addiction Medicine and is medically acceptable for discharge to home. He is declining services and wishes to be returned to his prior indwelling Time Attestation Discharge Coordination Time (in mins): 35 Quality: Safe Use of Opioids Does Pt have an Active Cancer Diagnosis on the Problem List?: No Quality: Stroke Does the patient have a stroke diagnosis?: No Physical Exam Vital Signs: Vital Signs: Last Vital Signs Temp 97.5 F 02/06/25 07:28 Pulse 78 02/06/25 07:28 Resp 17 02/06/25 07:28 BP 116/72 02/06/25 07:28 Pulse Ox 98 02/06/25 07:28 O2 Del Method Room Air 02/06/25 07:28 BMI result Body Mass Index 34.7 Const: Other: Awake alert no acute distress Resp: Other: Clear to auscultation bilaterally no rales rhonchi or wheezes Cardio: Other: No S4; positive S1-S2; no S3 murmurs rubs or gallops GI: Other: Soft nontender nondistended normoactive bowel sounds Skin: Other: See admission photos for details Extrem: Other: See admission photos for left foot/toe upgrade DS: Data Data Completed and Pending Labs on day of discharge: Laboratory Results - last 24 hr 02/05/25 02/05/25 02/05/25 16:26 18:04 20:24 Hold Purple Top Creatinine Estim Creat Clear Calc Estimated GFR POC Glucose 105 95 Random Vancomycin 15.7 02/06/25 02/06/25 02/06/25 06: 07:33 11:12 Hold Purple Top SEE NOTE Creatinine 0.76 Estim Creat Clear Calc 176.0 Estimated GFR > 60 POC Glucose 101 165 H Random Vancomycin Preliminary micro results at discharge 02/02/25 17:46 Blood Culture - Preliminary Blood - Venous No growth after 48 hours. 02/02/25 17:39 Blood Culture - Preliminary Blood - Venous No growth after 48 hours. Discharge Plan Discharge Anticipated Discharge Date/Time: 02/06/25 13:51 Patient Disposition: Home Health Service Discharge Diagnosis: Chronic left foot osteomyelitis Referrals: Physician,None [Primary Care Provider] - 1 Week Discharge Medications: New linezolid 600 mg tablet 600 mg PO Q12H 14 Days Qty: 28 0RF oxycodone 5 mg tablet 5 mg PO Q6H PRN (Reason: pain) Qty: 20 0RF Rx Instructions: Partial Fill upon patient request. Continued quetiapine 300 mg tablet 300 mg PO BEDTIME morphine 15 mg tablet 15 mg PO Q8H PRN (Reason: pain) glipizide 5 mg tablet 5 mg PO DAILY escitalopram oxalate 10 mg tablet 10 mg PO DAILY pregabalin 225 mg capsule 225 mg PO BID atorvastatin 40 mg tablet 40 mg PO DAILY lisinopril 5 mg tablet 5 mg PO DAILY Discontinued doxycycline monohydrate 100 mg capsule 100 mg PO BID 7 Days Qty: 14 0RF cephalexin 500 mg capsule 500 mg PO Q8H 7 Days Qty: 21 0RF Discharge Orders: Discharge Order (Routine); Ordered 02/06/25 Ordered By: Nando Boswell Diet: Advance to usual diet Activity on Discharge: As tolerated Stand Alone Forms: Patient Portal Discharge page Print Language: Maori Care Plan Goals: Complete course of linezolid as ordered Health Concerns: Resume all the previous medicines you took before hospitalization Plan of Treatment: Follow up with a new PCP as scheduled Assessment: See discharge summary
--- NOTE | 2025-02-06 14:22 | PC.NURSE ---
Pt refusing EMS ride to home, he wants a LYFT Ride, does not want a bill.
--- NOTE | 2025-02-06 14:58 | MHC.CM.PN ---
pt dcd home slef iam thakkar arranged fo rpt
--- NOTE | 2025-02-06 15:01 | PC.NURSE ---
patient declining ambulance ride home at this time, requests [facility] or [facility] despite having a right BKA and being primarily w/c bound. manager education aware and organized [facility] to transport patient home.
== END 2025-02-06 15:01 | disposition home health service (06) | DRG 872 ==
LOC: HO.ED 20:27 → HO.EDOVER 21:08 → HO.S3 02-03 11:16
PROVIDERS: Physician Assistant Medical; Admitting Provider Student in an Organized Health Care Education/Training Program; Emergency Provider Emergency Medicine Emergency Medical Services; Visit Provider Hospitalist
DX: A41.9 Sepsis, unspecified organism (principal); M86.172 Other acute osteomyelitis, left ankle and foot; M46.28 Osteomyelitis of vertebra, sacral and sacrococcygeal region; E87.21 Acute metabolic acidosis; M86.651 Other chronic osteomyelitis, right thigh; A04.72 Enterocolitis due to Clostridium difficile, not specified as recurrent; E11.52 Type 2 diabetes mellitus with diabetic peripheral angiopathy with gangrene; F10.139 Alcohol abuse with withdrawal, unspecified; M00.9 Pyogenic arthritis, unspecified; F17.210 Nicotine dependence, cigarettes, uncomplicated; Z71.6 Tobacco abuse counseling; E11.69 Type 2 diabetes mellitus with other specified complication; Y90.7 Blood alcohol level of 200-239 mg/100 ml; E11.42 Type 2 diabetes mellitus with diabetic polyneuropathy; Z63.4 Disappearance and death of family member; L89.159 Pressure ulcer of sacral region, unspecified stage; K74.60 Unspecified cirrhosis of liver; F10.129 Alcohol abuse with intoxication, unspecified; G65.0 Sequelae of Guillain-Barre syndrome; L89.319 Pressure ulcer of right buttock, unspecified stage; I10 Essential (primary) hypertension; Z99.3 Dependence on wheelchair; Z91.51 Personal history of suicidal behavior; Z89.511 Acquired absence of right leg below knee; Z79.84 Long term (current) use of oral hypoglycemic drugs; Z79.899 Other long term (current) drug therapy
CPT/HCPCS: 36415; 71046; 73564; 73630; 74177; 80048; 80053; 80143; 80179; 80202; 80307; 81003; 82140; 82550; 82565; 82803; 82947; 83605; 83690; 83735; 85025; 87040; 99285; J0692; J1171; J1650; J1885; J2543; J2560; J3370; J3371; J3411; Q9967

== ENCOUNTER → 2025-02-02 16:24 | Outpatient (BNV) | payer MEDICARE, MEDICAID, SELFPAY | PROVIDERS: Emergency Provider Emergency Medicine Emergency Medical Services; Visit Provider Radiology Diagnostic Radiology | DX: L89.159 Pressure ulcer of sacral region, unspecified stage (principal); D35.02 Benign neoplasm of left adrenal gland; K74.60 Unspecified cirrhosis of liver; K80.20 Calculus of gallbladder without cholecystitis without obstruction; M85.862 Other specified disorders of bone density and structure, left lower leg; R62.7 Adult failure to thrive; F10.20 Alcohol dependence, uncomplicated; M61.572 Other ossification of muscle, left ankle and foot | CPT/HCPCS: 73564; 73630; 74177 ==

== ENCOUNTER → 2025-02-02 20:23 | Outpatient (BNV) | payer MEDICARE, MEDICAID, SELFPAY | PROVIDERS: Admitting Provider Student in an Organized Health Care Education/Training Program; Emergency Provider Emergency Medicine Emergency Medical Services; Visit Provider Internal Medicine | DX: A41.9 Sepsis, unspecified organism (principal); M86.9 Osteomyelitis, unspecified; E87.20 Acidosis, unspecified; F10.939 Alcohol use, unspecified with withdrawal, unspecified | CPT/HCPCS: 99232 ==

== ENCOUNTER → 2025-02-02 20:23 | Outpatient (BNV) | payer MEDICARE, MEDICAID, SELFPAY | PROVIDERS: Admitting Provider Student in an Organized Health Care Education/Training Program; Emergency Provider Emergency Medicine Emergency Medical Services; Visit Provider Nurse Practitioner Psychiatric/Mental Health | DX: F10.939 Alcohol use, unspecified with withdrawal, unspecified (principal) | CPT/HCPCS: 99222 ==

== ENCOUNTER → 2025-02-02 20:23 | Outpatient (BNV) | payer MEDICARE, MEDICAID, SELFPAY | PROVIDERS: Admitting Provider Student in an Organized Health Care Education/Training Program; Emergency Provider Emergency Medicine Emergency Medical Services; Visit Provider Student in an Organized Health Care Education/Training Program | DX: F10.939 Alcohol use, unspecified with withdrawal, unspecified (principal); M86.9 Osteomyelitis, unspecified; E11.9 Type 2 diabetes mellitus without complications; A41.9 Sepsis, unspecified organism | CPT/HCPCS: 99232 ==

== ENCOUNTER → 2025-02-02 20:23 | Outpatient (BNV) | payer MEDICARE, MEDICAID, SELFPAY | PROVIDERS: Admitting Provider Student in an Organized Health Care Education/Training Program; Emergency Provider Emergency Medicine Emergency Medical Services; Visit Provider Surgery | DX: M86.9 Osteomyelitis, unspecified (principal); L89.159 Pressure ulcer of sacral region, unspecified stage | CPT/HCPCS: 99222 ==

== ENCOUNTER → 2025-02-02 20:23 | Outpatient (BNV) | payer MEDICARE, MEDICAID, SELFPAY | PROVIDERS: Admitting Provider Student in an Organized Health Care Education/Training Program; Emergency Provider Emergency Medicine Emergency Medical Services; Visit Provider Surgery Vascular Surgery | DX: M86.9 Osteomyelitis, unspecified (principal) | CPT/HCPCS: 99222 ==

== ENCOUNTER 2025-02-12 11:26 | Inpatient (IN) | payer MEDICARE, MEDICAID, SELFPAY ==
[2025-02-12] VITALS (10 sets, daily range): BP systolic 135–177; BP diastolic 80–104; PULSE 101–124; RESP 14–18; TEMP 36–37.4; O2SAT 95–98; BMI 32.5
--- NOTE | ~2025-02-12 | XR_ITS ---
EXAMINATION: XR KNEE, RIGHT CLINICAL INFORMATION: BKA stump erythema. osteo COMPARISON: None available. TECHNIQUE: Four views of the right knee. FINDINGS: Below the knee amputation has been performed at the junction of proximal and mid third diaphysis of the tibia and fibula. There is osteopenia. There is moderate lateral compartment and mild medial compartment joint space narrowing. There is no knee joint effusion. Periosteal new bone formation is present along the lateral aspect of the tibia. XR/XR knee RT 4V IMPRESSION: Below the knee amputation and osteopenia. Nonspecific periosteal new bone formation is present along the lateral metaphysis and diaphysis of the tibia. This could be related to surgery, stress response, or osteomyelitis. Given the smooth nature and large area of involvement, osteomyelitis is less likely. Electronically signed by: Bryant Zapien MD 02/12/2025 01:11 PM EDT
--- NOTE | ~2025-02-12 | CT_ITS ---
EXAMINATION: CT CHEST WITH CONTRAST CLINICAL INFORMATION: Leukocytosis COMPARISON: November 03, 2020 TECHNIQUE: Multidetector volumetric CT imaging of the chest was obtained after the administration of 85 mL of Omnipaque 350 intravenous contrast without immediate adverse reactions. Axial MIP volume rendering provided. Sagittal and coronal reformatted images were obtained. This CT examination was performed using dose optimization techniques as appropriate, variously including the following: *Automated exposure control *Adjustment of mA and/or kV according to patient size (this includes techniques or standardized protocols for targeted exams where dose is matched to indication/reason for exam; i.e. extremities or head) *Use of iterative reconstruction technique DLP: 1551 mGY*cm FINDINGS: LUNGS: Linear atelectasis or scarring is present in the posterior right lung base. MEDIASTINUM: On the prior examination, there is a borderline enlarged prevascular lymph node which has now decreased in size and measures 6 mm short axis. Other shotty mediastinal and right hilar lymph nodes are also present but not enlarged. PLEURA: There is no pleural effusion. No pleural mass or thickening. AXILLA: No lymphadenopathy. UPPER ABDOMEN: [Adrenal gland nodules, refer to same day CT abdomen and pelvis for discussion. OSSEOUS STRUCTURES: Lower thoracic spine demonstrates disc space narrowing, vacuum phenomenon, and endplate osteophytes consistent with degenerative disc disease. There is also facet arthropathy. Lateral right fifth rib fracture with periosteal new bone formation is probably subacute. CT/CT chest w IV con IMPRESSION: Subacute lateral right 5th rib fracture. No sign of pneumonia. Fleischner guidelines were followed. Electronically signed by: Bryant Zapien MD 02/12/2025 05:05 PM EDT
--- NOTE | ~2025-02-12 | CT_ITS ---
EXAMINATION: CT ABDOMEN AND PELVIS WITH CONTRAST CLINICAL INFORMATION: Sacral ulceration DLP: 1551 mGY*cm COMPARISON: February 02, 2025 TECHNIQUE: Multidetector volumetric images were obtained from the superior aspect of the liver through the pubic symphysis following administration 85 mL of Omnipaque 350 intravenous contrast. Sagittal and coronal reformatted images were obtained on the technologist's workstation. Oral contrast: No This CT examination was performed using dose optimization techniques as appropriate, variously including the following: *Automated exposure control *Adjustment of mA and/or kV according to patient size (this includes techniques or standardized protocols for targeted exams where dose is matched to indication/reason for exam; i.e. extremities or head) *Use of iterative reconstruction technique FINDINGS: LUNG BASES: Linear densities in the posterior basilar right lower lobe are most consistent with atelectasis. LIVER, GALLBLADDER, AND BILIARY TREE: The liver is normal in size, shape, and attenuation. No focal hepatic lesion or biliary ductal dilatation is present. Again seen are multiple faceted peripherally calcified gallstones. PANCREAS: Unremarkable. SPLEEN: Unremarkable. ADRENAL GLANDS: Again seen is a 1.5 x 2.1 cm left adrenal gland nodule superiorly in the left adrenal gland measuring 24 Hounsfield units. More inferior nodule measures 1.4 x 1.8 cm and 39 Hounsfield units. It has been present since at least November 03, 2020 where it measured 1.4 x 1.6 cm. There is likely very small nodule in the right adrenal gland as well. KIDNEYS AND URETERS: The kidneys are normal in size, shape, and attenuation. No hydronephrosis, hydroureter, or calculi seen. No perinephric stranding. BLADDER: Unremarkable. GASTROINTESTINAL TRACT: There is an end to end surgical anastomosis at the descending-sigmoid colon junction. Changes of diverticulosis are present throughout the colon. Appendix is normal in appearance. ABDOMINAL WALL: No significant hernia is appreciated. LYMPH NODES: There are shotty inguinal nodes are present. VASCULAR: Vascular calcifications are present in the aorta. PELVIC VISCERA: Unremarkable. OSSEOUS STRUCTURES: There is ulceration in the soft tissues dorsal to the sacrococcygeal junction. There is no clear cortical destruction or periosteal new bone formation. However, there is a faint ossification in the soft tissues centered 1.5 cm distal to the small coccyx. The ossification measured 1 cm superior to inferior and 2.4 cm anterior posterior it is faintly visible on the current and past study. It is otherwise uncertain etiology or significance. CT/CT abdomen pelvis w IV con IMPRESSION: Soft tissue ulceration is present in the region of the distal sacrum and coccyx. The coccyx is small. There is no definitive periosteal new bone formation or cortical destruction. However, CT is insensitive for evaluation of osteomyelitis. MRI without and with IV contrast is the standard care. There is faint ossified density in the soft tissues 1.5 cm caudal to the inferior tip of coccyx also visible on the prior examination. Osteomyelitis involving this small presumed accessory coccygeal fragment is not ruled out in or out. Indeterminate adrenal gland nodules, left greater than right. Follow-up CT or MRI without and with using adrenal gland protocol. Gallstones Fleischner guidelines were followed. Electronically signed by: Bryant Zapien MD 02/12/2025 04:56 PM EDT
--- NOTE | ~2025-02-12 | XR_ITS ---
EXAMINATION: XR FOOT, LEFT CLINICAL INFORMATION: erythema redness. osteomyelitits COMPARISON: None available. TECHNIQUE: AP, lateral, and oblique views of the left foot. FINDINGS: There is diffuse osteopenia. There is bony fusion through the necks of the first and second digits. There is irregularity with erosive change involving the head of the proximal phalanx of the third digit. Margins appear sclerotic. Deformity of the fifth metatarsal is likely from amputation through the distal diaphysis. Toe remains intact. There is mature callus along the lateral distal diaphysis and neck of the fourth metatarsal. There is a large bony exostosis in the distal Achilles tendon and calcaneus. XR/XR foot LT min 3V IMPRESSION: Postoperative changes involving first and second proximal phalanges and fifth metatarsal head and neck. Erosive change in the third PIP joint is likely chronic, but acute is not ruled out. Correlate for signs symptoms of septic arthritis. Large bony exostosis in the distal Achilles tendon is likely degenerative/post traumatic. Osteochondroma is not ruled out. Osteopenia. Electronically signed by: Bryant Zapien MD 02/12/2025 01:04 PM EDT
--- NOTE | 2025-02-12 11:44 | ECG_ITS ---
Test Reason : ARRYTHMIA Blood Pressure : */* mmHG Vent. Rate : 121 BPM Atrial Rate : 121 BPM P-R Int : 146 ms QRS Dur : 82 ms QT Int : 334 ms P-R-T Axes : 43 -27 20 degrees QTcB Int : 474 ms Sinus tachycardia Cannot rule out Anterior infarct (cited on or before 02-Nov-2020) Abnormal ECG When compared with ECG of 03-Nov-2020 03:03, Criteria for Inferior infarct are no longer Present Questionable change in initial forces of Anterior leads Referred By: Betito Wilson Electronically Signed By: ROMIE MORA
[2025-02-12 11:51] LABS: MANUAL DIFF FLAG NO
[2025-02-12 11:53] LABS: Basophils Absolute Auto 0.1 X10*3/uL (0.0-0.2); Basophils Percent Auto 0.4 % (0-2); Eosinophils Percent Auto 0.1 % (0-4); Hematocrit 38.8 % (42.0-52.0); Hemoglobin 13.7 g/dl (14.0-18.0); Imm Gran Abs Auto 0.06 X10*3/uL (0.00-0.03); Imm Gran Pct Auto 0.4 % (0.0-0.4); Lymphocytes Absolute Auto 2.6 X10*3/uL (1.2-4.9); Lymphocytes Percent Auto 15.6 % (20-40); Mean Corpuscular HGB Conc 35.3 g/dl (31.0-36.0); Mean Corpuscular Volume 85.1 fL (80.0-98.0); Mean Platelet Volume 10.9 fL (9.4-12.4); Monocytes Absolute Auto 1.1 X10*3/uL (0.1-1.2); Monocytes Percent Auto 6.7 % (2-11); Neutrophils Absolute Auto 12.8 x10*3/uL (2.0-8.3); Neutrophils Percent Auto 76.8 % (45-73); Platelet Count 374 X10*3/uL (160-400); Red Blood Count 4.56 X10*6/uL (4.60-5.80); Red Cell Distribution Width 16.7 % (11.0-16.0); White Blood Count 16.7 X10*3/uL (4.8-10.8)
[2025-02-12] MEDS: diazePAM 10 MG/2 ML CARTRIDGE 2.5 MG IVPUSH ×2 (12:06→16:02)
[2025-02-12 12:13] LABS: Alanine Aminotransferase 43 U/L (0-40); Albumin Level 4.4 g/dL (3.5-5.0); Alkaline Phosphatase 98 U/L (39-117); Anion Gap 21 (12-20); Aspartate Amino Transferase 39 U/L (5-37); Bilirubin Total 0.5 mg/dL (0.0-1.0); Blood Urea Nitrogen 7 mg/dL (9-16); Calcium 9.5 mg/dL (8.4-10.2); Carbon Dioxide 24 mmol/L (22-29); Chloride 97 mmol/L (96-108); Creatinine Clr Calc Pharmacy 180.1; Estimated Glomerular Filt Rate > 60; Glucose Random 223 mg/dL (60-115); Potassium 2.8 mmol/L (3.3-5.1); Sodium 139 mmol/L (135-145); Total Protein 7.2 g/dL (6.5-8.0)
[2025-02-12 12:15] LABS: B Type Natriuretic Peptide 37 pg/mL (<100)
[2025-02-12] MEDS: vancomycin/NS 2,000 MG/500 ML PLAST..BAG 250 MG IV (12:27)
[2025-02-12] MEDS: Piperacillin Sodium/Tazobactam 3.375 GM in 0.9 % Sodium Chloride 50 ML IV (12:27)
[2025-02-12 12:34] LABS: C Reactive Protein 0.52 mg/dL (< or = 0.50); Magnesium 1.5 mg/dL (1.6-2.6)
[2025-02-12 12:37] LABS: Lactic Acid 7.9 mmol/L (0.5-2.0)
[2025-02-12] MEDS: Potassium Chloride Packet 20 MEQ PACKET 40 MEQ PO (12:37)
[2025-02-12] MEDS: Potassium Chloride/H20 10 MEQ/100 ML PIGGYBACK 100 MEQ IV (12:43)
--- NOTE | 2025-02-12 12:45 | ED_ITS ---
HPI - General Adult General Chief complaint: ETOH/Substance Use Stated complaint: ETOH Time Seen by Provider: 02/12/25 11:39 Source: patient Mode of arrival: ambulatory Limitations: no limitations History of Present Illness ED Provider: Betito Wilson HPI narrative: 40 yold male With past medical history of alcohol abuse, diabetes, decubitus sacral ulcer, presents to the ED for drinking due to being depressed over father's . Patient states no suicidal ideation. Patient admits to stopped drinking this past Wednesday and started again the past 2 days. Patient was shot in a stopped drinking cold turkey. Patient has had 10 shots of alcohol this morning. Patient states he felt little bit shaky so he took tetanus shots of alcohol to prevent withdrawal. Related Data Home Medications ?Medication ?Instructions ?Recorded ?Confirmed atorvastatin 40 mg tablet 40 mg PO DAILY 02/02/2501/21 escitalopram oxalate 10 mg tablet 10 mg PO DAILY 02/0202/02/25 glipizide 5 mg tablet 5 mg PO DAILY 02/02/2502/02 lisinopril 5 mg tablet 5 mg PO DAILY 02/02/2502/02 morphine 15 mg immediate release 15 mg PO Q8H PRN pain 02/02/25 02/02/25 tablet pregabalin 225 mg capsule 225 mg PO BID 02/02/2502/02 quetiapine 300 mg tablet 300 mg PO BEDTIME 02/02/25 0 02/02/25 Previous Rx's ?Medication ?Instructions ?Recorded linezolid 600 mg tablet 600 mg PO Q12H 14 days #28 t abs 02/06/25 oxycodone 5 mg tablet 5 mg PO Q6H PRN pain #20 tab s 02/06/25 Allergies Allergy/AdvReac Type Severity Reaction Status Date / Time baclofen Allergy Hives Verified 02/12/25 11:43 escitalopram (From Lexapro) Allergy Vomiting Verified 02/12/25 11:43 lithium Allergy Unresponsiv Verified 02/12/25 11:43 e metformin Allergy Unknown Verified 02/12/25 11:43 morphine Allergy Hives Verified 02/12/25 16:34 sulfamethoxazole (From Allergy Hives Verified 02/12/25 11:43 Bactrim) trimethoprim (From Bactrim) Allergy Hives Verified 02/12/25 11:43 Review of Systems 2 Review of Systems: depressed, feeling jittery Yes all other systems are reviewed and are negative [facility] Past Medical History Medical History Aftercare following right hip joint replacement surgery Bipolar disorder PTSD (post-traumatic stress disorder) Sacral decubitus ulcer Peripheral neuropathy Non-insulin dependent type 2 diabetes mellitus Guillain-[place] Surgical History History of total hip replacement Hx of right BKA Social History Social History Household Members: None Housing: House Do you presently have visiting nurse or other home services: No Alcohol intake: current Alcohol intake frequency: 0-2 drinks per day Alcohol type: hard liquor Comment: stand pivot to luz marina avila Patient Tobacco Use Status: Current everyday Tobacco user Tobacco use type: Cigarette Cigarette Packs Per Day: 1 Cigarettes Per Day: 20.0 Years Smoked: 29 years Smoked in Last 30 Days: Yes Second Hand Smoke Exposure: No Use of substances other than those prescribed or required for medical reasons: No Advance Directives: No Advance Directives Information Provided: Yes Do you have a plan to hurt others: No Plan service: No Physical Exam ED Vital Signs: Vital Signs - 24 hr 02/12/25 11:37 02/12/25 13:06 02/12/25 15:37 Temperature 99.3 F 98.4 F Pulse Rate 124 H 120 H 116 H Respiratory Rate 18 18 18 Blood Pressure 135/85 144/80 H 140/93 H Pulse Oximetry 97 97 95 Oxygen Delivery Method Room Air Room Air Room Air 02/12/25 17:04 02/12/25 17:06 Temperature 98.3 F Pulse Rate 113 H 107 H Respiratory Rate 18 Blood Pressure 148/95 H 165/99 H Pulse Oximetry 97 Oxygen Delivery Method Room Air BMI result Body Mass Index 32.5 Const General: cooperative, healthy appearing, comfortable, no acute distress, well developed, alert, awake and Physically active Orientation/consciousness: patient oriented x3 HENMT Head: Yes normal to inspection, Yes No palpable skull fracture present, Yes normocephalic and Yes atraumatic Throat: Yes posterior oropharynx normal, Yes tonsils normal and Yes uvula midline Eyes General: appearance normal, both eyes and all related structures Neck Neck: Yes normal visual inspection, Yes full ROM, Yes no lymphadenopathy, Yes no meningeal signs, Yes trachea midline, Yes supple, No anterior neck swelling and No tender Chest Chest palpation & inspection: normal inspection of the chest and normal palpation of entire chest wall Resp Effort & Inspection: normal respiratory effort and able to speak in complete sentences Auscultation: clear to auscultation bilaterally Cardio Jugular venous distension: no JVD Heart sounds: S1 normal heart sound present and S2 normal heart sound present GI Inspection: Yes normal to inspection Palpation (GI): Soft to palpation, not firm, nontender, no guarding and not rigid General: Yes no CVA tenderness Back/Spine/Pelvis Back: no CVA tenderness and No back tenderness Skin General skin exam: no rashes or lesions noted and elasticity normal Neuro General: patient oriented x3, gait normal, tone normal, moves all extremities, Normal light touch and pain sensation, no meningeal signs, no focal motor deficits, CN's II-XI intact bilaterally and normal sensation to monofilament Extrem Other: Psych Appearance: grossly normal, well kempt and not disheveled Medications Administered Generic Name Dose Route Start Last Admin Trade Name Freq PRN Reason Stop Dose Admin Lactated Ringer's 1,000 mls @ 125 mls/hr 02/12/25 17:45 02/12/25 18:07 Lr IVCONT 125 mls/hr .Q8H CHERISE Administration Discontinued Medications Generic Name Dose Route Start Last Admin Trade Name Freq PRN Reason Stop Dose Admin Diazepam 2.5 mg 02/12/25 11:57 02/12/25 12:06 Diazepam 10 Mg/2 Ml Cartridge IVPUSH 02/12/25 11:58 2.5 mg STAT STA Administration Diazepam 2.5 mg 02/12/25 15:20 02/12/25 16:02 Diazepam 10 Mg/2 Ml Cartridge IVPUSH 02/12/25 15:21 2.5 mg STAT STA Administration Hydromorphone HCl 0.5 mg 02/12/25 16:33 02/12/25 17:00 Hydromorphone Hcl 0.5 Mg/0.5 Ml Syringe IVPUSH 02/12/25 16:34 0.5 mg ONCE ONE Administration Protocol Sodium Chloride 1,000 mls @ 999 mls/hr 02/12/25 11:52 02/12/25 12:59 Ns IV 02/12/25 12:52 Not Given .Q1H1M STA Piperacillin Sod/Tazobactam 50 mls @ 100 mls/hr 02/12/25 11:57 02/12/25 13:06 Sod 3.375 gm/ Sodium Chloride IV 02/12/25 12:26 Infused ONCE ONE Infusion Vancomycin HCl 2,000 mg in 500 mls @ 250 mls/hr 02/12/25 11:57 02/12/25 15:09 Vancomycin/Ns IV 02/12/25 13:56 Infused ONCE ONE Infusion Potassium Chloride 10 meq in 100 mls @ 100 mls/hr 02/12/25 12:20 02/12/25 14:01 Potassium Chloride/H20 IV 02/12/25 13:19 Infused ONCE ONE Infusion Sodium Chloride 3,354 mls @ 3,354 mls/hr 02/12/25 12:36 02/12/25 16:57 Ns 30 ml/kg infuse over 1 hr (3354 ml) 02/12/25 13:35 Infused IV Infusion .Q1H STA Magnesium Sulfate 2 gm in 50 mls @ 25 mls/hr 02/12/25 15:00 02/12/25 17:40 Magnesium Sulfate/H2o IV 02/12/25 16:59 Infused ONCE ONE Infusion Iohexol 100 ml 02/12/25 15:53 02/12/25 15:53 Iohexol 350 Mg/Ml 100 Ml Infus..Btl IV 02/12/25 15:54 85 ml ONCE ONE Administration Potassium Chloride 40 meq 02/12/25 12:20 02/12/25 12:37 Potassium Chloride Packet 20 Meq Packet PO 02/12/25 12:21 40 meq ONCE ONE Administration Medical Decision Making Medical Decision Making MDM Narrative: 40-year-old male presents to ED for drinking alcohol due to recent father , but it is not suicidal. Patient found to be tachycardic. Mother states patient was in V-tach but EKG was done which shows sinus tach. Patient has a erythema around right BKA and left foot baby acute or chronic. Patient also has decubitus sacral ulcer with erythema which may be acute on chronic. Patient has elevated white count. Potassium 2.8. Fluids ordered. Potassium ordered antibiotics ordered. Lactic acid 7. Mild ketoacidosis. Anion gap 21. Magnesium 1.5. Antibiotics ordered. Diazepam was ordered for possible alcohol withdrawal due to patient being tachy and stating he was jittery with decrease alcohol consuption the past week 1:06pm: Eva Rudolph of Care team informed me that patient was evaluated by [facility] and was found to be at home in feces. They Section 12 patient and recommed in patietn psych admission for depression and inability to care for himself. 6:31pm: Patient be admitted for hypokalemia, alcoholic ketoacidosis, and possible osteomyelitis. Case presents to Dr. Lyons for admission. Patient presently not tremulous and his alert oriented x3. CIWA score 1. Patient is not in DKA Differential Diagnosis Differential Diagnoses: The differential diagnosis associated with the presentation includes (Alcoholic withdrawal, alcohol intoxication, alcoholic ketoacidosis, sepsis, osteomyelitis) Admission/Observation Consideration of admission/observation: Escalation of care including admission/observation considered Consult Healthcare Provider Management of the patient was discussed with: Hospitalist (Dr. Lyons) Lab Data MDM Lab Attestation statement: I reviewed the patient's lab results. 02/12/25 11:47 02/12/25 14:27 Labs: Lab Results 02/12/25 02/12/25 02/12/25 Range/Units 11:46 11:47 12:01 WBC 16.7 H (4.8-10.8) X10*3/uL RBC 4.56 L D (4.60-5.80) X10*6/uL Hgb 13.7 L D (14.0-18.0) g/dl Hct 38.8 L (42.0-52.0) % MCV 85.1 (80.0-98.0) fL MCH 30.0 (27.0-33.0) pg MCHC 35.3 (31.0-36.0) g/dl RDW 16.7 H (11.0-16.0) % Plt Count 374 D (160-400) X10*3/uL MPV 10.9 (9.4-12.4) fL Immature Gran % (Auto) 0.4 (0.0-0.4) % Neut % (Auto) 76.8 H (45-73) % Lymph % (Auto) 15.6 L (20-40) % Archer % (Auto) 6.7 (2-11) % Eos % (Auto) 0.1 (0-4) % Baso % (Auto) 0.4 (0-2) % Lymph # (Auto) 2.6 (1.2-4.9) X10*3/uL Archer # (Auto) 1.1 (0.1-1.2) X10*3/uL Eos # (Auto) 0.0 (0.0-0.4) X10*3/uL Baso # (Auto) 0.1 (0.0-0.2) X10*3/uL Abs Immat Gran (auto) 0.06 H (0.00-0.03) X10*3/uL Absolute Neuts (auto) 12.8 H (2.0-8.3) x10*3/uL Absolute Nucleated RBC 0.000 (0.0-0.012) X10*3/uL Nucleated RBC % (auto) 0.0 (0.0-0.2) /100WBC ESR 9 (0-15) MM/HR Sodium 139 (135-145) mmol/L Potassium 2.8 L* D (3.3-5.1) mmol/L Chloride 97 (96-108) mmol/L Carbon Dioxide 24 (22-29) mmol/L Anion Gap 21 H (12-20) BUN 7 L (9-16) mg/dL Creatinine 0.70 (0.5-1.4) mg/dL Estim Creat Clear Calc 180.1 Estimated GFR > 60 Random Glucose 223 H (60-115) mg/dL Lactic Acid 7.9 H* (0.5-2.0) mmol/L Lactic Acid F/U @ 2Hr (0.5-2.0) mmol/L Calcium 9.5 D (8.4-10.2) mg/dL Magnesium 1.5 L (1.6-2.6) mg/dL Total Bilirubin 0.5 (0.0-1.0) mg/dL AST 39 H (5-37) U/L ALT 43 H (0-40) U/L Alkaline Phosphatase 98 (39-117) U/L Troponin I High Sens 14.0 (<3.5-35.0) ng/L C-Reactive Protein 0.52 H (< or = 0.50) mg/dL B-Natriuretic Peptide 37 (<100) pg/mL Total Protein 7.2 (6.5-8.0) g/dL Albumin 4.4 (3.5-5.0) g/dL Beta-Hydroxybutyrate 0.07 (0.02-0.27) mmol/L Urine Color Urine Appearance Urine pH (5.0-9.0) Ur Specific [place] (1.005-1.025) Urine Protein (Neg-Trace) mg/dL Urine Glucose (UA) (Negative) mg/dL Urine Ketones (Negative) mg/dL Urine Blood (Negative) Urine Nitrite (Negative) Ur Leukocyte Esterase (Negative) Urine Opiates Screen (Not Detect) Ur Buprenorphine Scrn (Not Detect) ng/mL Ur Oxycodone Screen (Not Detect) ng/mL Urine Methadone Screen (Not Detect) ng/mL Urine Fentanyl Screen (Not Detect) Ur Barbiturates Screen (Not Detect) Ur Phencyclidine Scrn (Not Detect) Ur Amphetamines Screen (Not Detect) U Benzodiazepines Scrn (Not Detect) Urine Cocaine Screen (Not Detect) U Marijuana (THC) Screen (Not Detect) Ethyl Alcohol mg/dL 02/12/25 02/12/25 02/12/25 Range/Units 13:46 14:27 15:56 WBC (4.8-10.8) X10*3/uL RBC (4.60-5.80) X10*6/uL Hgb (14.0-18.0) g/dl Hct (42.0-52.0) % MCV (80.0-98.0) fL MCH (27.0-33.0) pg MCHC (31.0-36.0) g/dl RDW (11.0-16.0) % Plt Count (160-400) X10*3/uL MPV (9.4-12.4) fL Immature Gran % (Auto) (0.0-0.4) % Neut % (Auto) (45-73) % Lymph % (Auto) (20-40) % Archer % (Auto) (2-11) % Eos % (Auto) (0-4) % Baso % (Auto) (0-2) % Lymph # (Auto) (1.2-4.9) X10*3/uL Archer # (Auto) (0.1-1.2) X10*3/uL Eos # (Auto) (0.0-0.4) X10*3/uL Baso # (Auto) (0.0-0.2) X10*3/uL Abs Immat Gran (auto) (0.00-0.03) X10*3/uL Absolute Neuts (auto) (2.0-8.3) x10*3/uL Absolute Nucleated RBC (0.0-0.012) X10*3/uL Nucleated RBC % (auto) (0.0-0.2) /100WBC ESR (0-15) MM/HR Sodium (135-145) mmol/L Potassium 2.5 L* (3.3-5.1) mmol/L Chloride (96-108) mmol/L Carbon Dioxide (22-29) mmol/L Anion Gap (12-20) BUN (9-16) mg/dL Creatinine (0.5-1.4) mg/dL Estim Creat Clear Calc Estimated GFR Random Glucose (60-115) mg/dL Lactic Acid 5.4 H* (0.5-2.0) mmol/L Lactic Acid F/U @ 2Hr 5.8 H* (0.5-2.0) mmol/L Calcium (8.4-10.2) mg/dL Magnesium (1.6-2.6) mg/dL Total Bilirubin (0.0-1.0) mg/dL AST (5-37) U/L ALT (0-40) U/L Alkaline Phosphatase (39-117) U/L Troponin I High Sens 14.7 (<3.5-35.0) ng/L C-Reactive Protein (< or = 0.50) mg/dL B-Natriuretic Peptide (<100) pg/mL Total Protein (6.5-8.0) g/dL Albumin (3.5-5.0) g/dL Beta-Hydroxybutyrate (0.02-0.27) mmol/L Urine Color Urine Appearance Urine pH (5.0-9.0) Ur Specific [place] (1.005-1.025) Urine Protein (Neg-Trace) mg/dL Urine Glucose (UA) (Negative) mg/dL Urine Ketones (Negative) mg/dL Urine Blood (Negative) Urine Nitrite (Negative) Ur Leukocyte Esterase (Negative) Urine Opiates Screen (Not Detect) Ur Buprenorphine Scrn (Not Detect) ng/mL Ur Oxycodone Screen (Not Detect) ng/mL Urine Methadone Screen (Not Detect) ng/mL Urine Fentanyl Screen (Not Detect) Ur Barbiturates Screen (Not Detect) Ur Phencyclidine Scrn (Not Detect) Ur Amphetamines Screen (Not Detect) U Benzodiazepines Scrn (Not Detect) Urine Cocaine Screen (Not Detect) U Marijuana (THC) Screen (Not Detect) Ethyl Alcohol 163 mg/dL 02/12/25 Range/Units 16:01 WBC (4.8-10.8) X10*3/uL RBC (4.60-5.80) X10*6/uL Hgb (14.0-18.0) g/dl Hct (42.0-52.0) % MCV (80.0-98.0) fL MCH (27.0-33.0) pg MCHC (31.0-36.0) g/dl RDW (11.0-16.0) % Plt Count (160-400) X10*3/uL MPV (9.4-12.4) fL Immature Gran % (Auto) (0.0-0.4) % Neut % (Auto) (45-73) % Lymph % (Auto) (20-40) % Archer % (Auto) (2-11) % Eos % (Auto) (0-4) % Baso % (Auto) (0-2) % Lymph # (Auto) (1.2-4.9) X10*3/uL Archer # (Auto) (0.1-1.2) X10*3/uL Eos # (Auto) (0.0-0.4) X10*3/uL Baso # (Auto) (0.0-0.2) X10*3/uL Abs Immat Gran (auto) (0.00-0.03) X10*3/uL Absolute Neuts (auto) (2.0-8.3) x10*3/uL Absolute Nucleated RBC (0.0-0.012) X10*3/uL Nucleated RBC % (auto) (0.0-0.2) /100WBC ESR (0-15) MM/HR Sodium (135-145) mmol/L Potassium (3.3-5.1) mmol/L Chloride (96-108) mmol/L Carbon Dioxide (22-29) mmol/L Anion Gap (12-20) BUN (9-16) mg/dL Creatinine (0.5-1.4) mg/dL Estim Creat Clear Calc Estimated GFR Random Glucose (60-115) mg/dL Lactic Acid (0.5-2.0) mmol/L Lactic Acid F/U @ 2Hr (0.5-2.0) mmol/L Calcium (8.4-10.2) mg/dL Magnesium (1.6-2.6) mg/dL Total Bilirubin (0.0-1.0) mg/dL AST (5-37) U/L ALT (0-40) U/L Alkaline Phosphatase (39-117) U/L Troponin I High Sens (<3.5-35.0) ng/L C-Reactive Protein (< or = 0.50) mg/dL B-Natriuretic Peptide (<100) pg/mL Total Protein (6.5-8.0) g/dL Albumin (3.5-5.0) g/dL Beta-Hydroxybutyrate (0.02-0.27) mmol/L Urine Color Yellow Urine Appearance Clear Urine pH 6.0 (5.0-9.0) Ur Specific [place] 1.015 (1.005-1.025) Urine Protein Negative (Neg-Trace) mg/dL Urine Glucose (UA) 100 H (Negative) mg/dL Urine Ketones Negative (Negative) mg/dL Urine Blood Negative (Negative) Urine Nitrite Negative (Negative) Ur Leukocyte Esterase Negative (Negative) Urine Opiates Screen Not Detected (Not Detect) Ur Buprenorphine Scrn Not Detected (Not Detect) ng/mL Ur Oxycodone Screen Not Detected (Not Detect) ng/mL Urine Methadone Screen Not Detected (Not Detect) ng/mL Urine Fentanyl Screen Not Detected (Not Detect) Ur Barbiturates Screen POSITIVE H (Not Detect) Ur Phencyclidine Scrn Not Detected (Not Detect) Ur Amphetamines Screen Not Detected (Not Detect) U Benzodiazepines Scrn Not Detected (Not Detect) Urine Cocaine Screen POSITIVE H (Not Detect) U Marijuana (THC) Screen Not Detected (Not Detect) Ethyl Alcohol mg/dL Independent Interpretation I performed an independent interpretation of an: EKG (Sinus tach), Plain X-Ray and CT Scan Interpretation: Critical Care Time Critical Care Time Critical Care Time: Yes Total Critical Care Time: 60 Attestation: Patient has elevated white blood cell count, tachycardic, hypokalemic, hypomagnesemia, and lactic acidosis. EKG sinus tach. Antibiotics ordered, fluids, potassium oral IV, and IV magnesium motor Discharge Plan Discharge Clinical Impression: Alcoholic ketoacidosis Patient Disposition: Admitted As Inpatient
[2025-02-12 12:50] LABS: Erythrocyte Sedimentation Rate 9 MM/HR (0-15)
--- NOTE | 2025-02-12 12:58 | MHC.CARE ---
Pt was assessed by [facility] crisis in the community secondary to Pt calling police reporting depression and alcohol use. Pt was covered in feces as well as his apartment upon arrival. [facility] disposition is [facility] and Pt is voluntary for [place] secondary to inability to care, depression, and hopelessness. Pt was placed on a Section 12a upon arriving to the ED as all Pt's that are inpatient bed searches must be on a Section 12a
--- NOTE | 2025-02-12 13:00 | PC.NURSE ---
Fluids started at 1152, provider stating to give total of 3354mls and not additional 1000mls initially ordered
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
--- OUTSIDE RECORDS SUMMARY | 2025-02-12 13:47 | XMS_ITS | Encounter Summary ---
Author Organization [facility] Address [address] [place] [id number] Care Team Providers Care Information Security Associate Name Role Phone Rosa Sepulveda NP Primary Care Provider [phone] Encounter Details Date Type Department Care Team (Late st Contact Info) Description 07/08/2020 [facility] Plastic & Reconstructive Surgery [address] [place] [id number] David Corrales MD [address] [place] [id number] Social History Tobacco Use Types Packs/Day Years Used Date Smoking Tobacco: Every Day Cigarettes 1 20 Smokeless Tobacco: Never Alcohol Use Standard Drinks/Week Comments Never 0 (1 standard drink = 0.6 oz pur e alcohol) AUDIT-C Answer Date Recorded Frequency of Alcohol Consumption Never 05/18/2019 Average Number of Drinks Not on file 019 Frequency of Binge Drinking Not on file 04/24 Sex and Gender Information Value Date Recorded Sex Assigned at Not on file Legal Sex Male 11:54 AM EDT Gender Identity Not on file Sexual Orientation Not on file documented as of this encounter Progress Notes * David Corrales MD - 07/08/2020 7:46 PM EST I spoke with Dr Dow???Jean Ellis???s orthopedic surgeon, today. He discussed his upcoming plans for hip surgery, and we discussed the optimal surgical approach with respect to incisions. Based on my understanding of the orthopedic plan, the proposed posterior access incision for the hip seems r easonable and should not impact flap viability. documented in this encounter Plan of Treatment Not on file documented as of this encounter Visit Diagnoses Not on filedocumented in this encounter Care Teams Information Security Associate Relationship Specialty Start Date End Date Rosa Sepulveda NP [address] [place] [address] PCP - General 05/09/19 documented as of this encounter
[2025-02-12 14:06] LABS: Ethanol 163 mg/dL
[2025-02-12 14:07] LABS: Reflex Lactate? Lactic Acid Added
[2025-02-12 14:29] LABS: Beta-Hydroxybutyrate 0.07 mmol/L (0.02-0.27)
[2025-02-12 14:48] LABS: Potassium 2.5 mmol/L (3.3-5.1)
[2025-02-12 14:52] LABS: Lactic Acid 5.4 mmol/L (0.5-2.0)
[2025-02-12] MEDS: Magnesium Sulfate/H2O 2 GM/50 ML PIGGYBACK IV (15:16)
[2025-02-12] MEDS: iohexoL 350 MG/ML 100 ML INFUS..BTL IV (15:53)
[2025-02-12 16:18] LABS: Amphetamine Screen Urine Not Detected (Not Detect); Barbiturates, Urine POSITIVE (Not Detect); Benzodiazepines Screen Urine Not Detected (Not Detect); Buprenorphine Scr Not Detected (Not Detect); Cannabinoid Screen Urine Not Detected (Not Detect); Cocaine Screen Urine POSITIVE (Not Detect); Fentanyl, urine Not Detected (Not Detect); Methadone Screen, Urine Not Detected (Not Detect); Opiate Screen Urine Not Detected (Not Detect); Oxycodone Screen Urine Not Detected (Not Detect); Phencyclidine Screen Urine Not Detected (Not Detect)
[2025-02-12 16:24] LABS: Troponin-I High Sensitivity 14.7 ng/L (<3.5-35.0)
[2025-02-12 16:25] LABS: ~Lactic Acid-LAB USE ONLY 5.8 mmol/L (0.5-2.0)
[2025-02-12 16:27] LABS: Appearance Urine Clear; Color Urine Yellow; Glucose Urine UA 100 mg/dL (Negative); Leukocyte Esterase Urine Negative (Negative); Nitrite Urine Negative (Negative); Specific Gravity - Urine 1.015 (1.005-1.025); Urine Blood Negative (Negative); Urine Ketones Negative (Negative); Urine Protein Negative (Neg-Trace)
[2025-02-12 16:32] LABS: Reflex Lactate? Lactic Acid Added
[2025-02-12] MEDS: HYDROmorphone HCl 0.5 MG/0.5 ML SYRINGE IVPUSH (17:00)
--- NOTE | 2025-02-12 17:43 | PC.NURSE ---
Patient reports feeling better, medicated for complaints of sacral pain with some effect. Continues to deny SI/ HI states is just depressed
[2025-02-12 17:58] LABS: Reflex Lactate? 2 Y
[2025-02-12] MEDS: Lactated Ringers 1,000 ML 125 ML IVCONT (18:07)
--- NOTE | 2025-02-12 18:10 | MHC.EDTECH ---
Lactic was competed at 6:10 PA Betito aware
[2025-02-12 18:41] LABS: ~Lactic Acid-LAB USE ONLY 4.9 mmol/L (0.5-2.0)
--- NOTE | 2025-02-12 18:44 | PC.NURSE ---
Lab called for notification of 4.9 lactic acid, MD Lyons notified via tiger text
--- NOTE | 2025-02-12 19:46 | PM.IMHP ---
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 Patient states he has been depressed over his father's and resumed taking alcohol. His last drink was on the morning of presentation. He apparently had 10 shots of alcohol on the morning of presentation. Patient has had symptoms of alcohol withdrawal all day since he stopped drinking. He has been having tremors. Does have history of alcohol withdrawal. No history of alcohol withdrawal seizures. He is complaining of low back pain due to sacral wound. He is wheelchair-bound. No fever, chills, chest pain, palpitations, abdominal pain. No SI or HI at the time of admission. Of note, patient was recently admitted on 02/02 with osteomyelitis of left proximal phalanx, alcohol withdrawal and discharged on 02/06 with p.o. linezolid. In the emergency department, patient was initiated on phenobarb protocol. Found to be hypokalemic with potassium 2.5 and lactic acid 5.8 Review of Systems Constitutional: Constitutional: Reports fatigue, Reports malaise and Reports weakness Cardiovascular: Cardiovascular: Reports no additional cardiovascular complaints Respiratory: Respiratory: Reports no additional respiratory complaints Gastrointestinal: Gastrointestinal: Reports no additional gastrointestinal complaints Genitourinary: Genitourinary: Reports no additional male genitourinary complaints Neurologic: Reports weakness Endocrine: Endocrine: Reports fatigue [facility] Medical History Aftercare following right hip joint replacement surgery Bipolar disorder PTSD (post-traumatic stress disorder) Sacral decubitus ulcer Peripheral neuropathy Non-insulin dependent type 2 diabetes mellitus Guillain-North Star Pertinent family history: No family history of early CAD Surgical History History of total hip replacement Hx of right BKA Social History Household Members: None Housing: House Do you presently have visiting nurse or other home services: No Alcohol intake: current Alcohol intake frequency: 0-2 drinks per day Alcohol type: hard liquor Comment: stand pivot to luz marina avila Patient Tobacco Use Status: Current everyday Tobacco user Tobacco use type: Cigarette Cigarette Packs Per Day: 1 Cigarettes Per Day: 20.0 Years Smoked: 29 years Smoked in Last 30 Days: Yes Second Hand Smoke Exposure: No Use of substances other than those prescribed or required for medical reasons: No Advance Directives: No Advance Directives Information Provided: Yes Do you have a plan to hurt others: No Plan service: No Meds Allergies Allergy/AdvReac Type Severity Reaction Status Date / Time baclofen Allergy Hives Verified 02/12/25 11:43 escitalopram (From Lexapro) Allergy Vomiting Verified 02/12/25 11:43 lithium Allergy Unresponsiv Verified 02/12/25 11:43 e metformin Allergy Unknown Verified 02/12/25 11:43 morphine Allergy Hives Verified 02/12/25 16:34 sulfamethoxazole (From Allergy Hives Verified 02/12/25 11:43 Bactrim) trimethoprim (From Bactrim) Allergy Hives Verified 02/12/25 11:43 Active Medications: Current Medications Acetaminophen (Acetaminophen 325 Mg Tablet) 650 mg PO Q6H PRN PRN Reason: Pain, Mild 1-3,fever,headache Calcium Carbonate (Calcium Carbonate 750 Mg Tab.Chew) 750 mg PO Q4H PRN PRN Reason: Heartburn Lactated Ringer's (Lr) 1,000 mls @ 125 mls/hr IVCONT .Q8H CHERISE Last Admin: 02/12/25 18:07 Dose: 125 mls/hr Thiamine HCl 100 mg/ Sodium (Chloride) 101 mls @ 202 mls/hr IV DAILY CHERISE Folic Acid 1 mg/ Sodium (Chloride) 50.2 mls @ 100.4 mls/hr IV DAILY CHERISE Magnesium Hydroxide (Milk Of Magnesia 30 Ml Oral.Susp) 30 ml PO DAILY PRN PRN Reason: Constipation Magnesium Hydroxide (Milk Of Magnesia 30 Ml Oral.Susp) 30 ml PO DAILY PRN PRN Reason: Constipation Melatonin (Melatonin 3 Mg Tablet) 6 mg PO BEDTIME PRN PRN Reason: Insomnia Ondansetron HCl (Ondansetron Hcl 4 Mg/2 Ml Vial) 4 mg IVPUSH Q8H PRN PRN Reason: Nausea and Vomiting Pharmacy Consult (Consult Rx Etoh Phenob Im/Po) 1 each MISCELLANE ONCE PRN; Protocol PRN Reason: Consult order Phenobarbital (Phenobarbital 30 Mg Tablet) 60 mg PO BID [facility]; Protocol Stop: 02/14/25 21:01 Phenobarbital (Phenobarbital 30 Mg Tablet) 30 mg PO BID [facility]; Protocol Stop: 02/16/25 21:01 Phenobarbital (Phenobarbital 30 Mg Tablet) 30 mg PO DAILY [facility]; Protocol Stop: 02/18/25 09:01 Phenobarbital Sodium (Phenobarbital Sodium 130 Mg/Ml Im Once) 256 mg IM ONCE ONE; Protocol Stop: 02/12/25 20:01 Phenobarbital Sodium (Phenobarbital Sodium 130 Mg/Ml Vial Im Q3hx2) 192 mg IM Q3H CHERISE; Protocol Stop: 02/13/25 02:01 Sodium Chloride (0.9 % Sodium Chloride Flush 3 Ml Syringe) 3 ml IVFLUSH QSMOFT [facility] Sodium Chloride (0.9 % Sodium Chloride Flush 3 Ml Syringe) 3 ml IVFLUSH QSHIFT [facility] Home Medications ?Medication ?Instructions ?Recorded ?Confirmed ?Last Taken ?Type atorvastatin 40 mg tablet 40 mg PO DAILY 02/02/25 02/02/25 02/01/25 History escitalopram oxalate 10 mg tablet 10 mg PO DAILY 02/02/25 02/02/25 02/01/25 History glipizide 5 mg tablet 5 mg PO DAILY 02/02/25 02/02/25 02/01/25 History lisinopril 5 mg tablet 5 mg PO DAILY 02/02/25 02/02/25 02/01/25 History morphine 15 mg immediate release 15 mg PO Q8H PRN pain 02/02/25 02/02/25 Unknown History tablet pregabalin 225 mg capsule 225 mg PO BID 02/02/25 02/02/25 02/01/25 History quetiapine 300 mg tablet 300 mg PO BEDTIME 02/02/25 02/02/25 02/01/25 History Physical Exam Vital Signs and Narrative: Vital Signs: Last Vital Signs Temp 96.8 F 02/12/25 19:28 Pulse 115 H 02/12/25 19:28 Resp 17 02/12/25 19:28 BP 177/99 H 02/12/25 19:28 Pulse Ox 97 02/12/25 19:28 O2 Del Method Room Air 02/12/25 19:28 BMI result Body Mass Index 32.5 Middle-aged male lying in bed in no distress Neck supple, no JVD Tachycardic with a regular rhythm, S1-S2 heard Regular breath sounds bilaterally, no wheezing or crackles appreciated Abdomen soft nontender, no guarding, no rigidity Patient is awake, alert and oriented to self, place, time and person ; no focal motor deficit Psych: Normal mood Chronic sacral ulcer, right BKA, Results Labs 02/12/25 11:47 02/12/25 14:27 Labs: Laboratory Results - last 24 hr 02/12/25 02/12/25 02/12/25 11:46 11:47 12:01 MCV 85.1 MCH 30.0 MCHC 35.3 RDW 16.7 H Plt Count 374 D MPV 10.9 Immature Gran % (Auto) 0.4 Neut % (Auto) 76.8 H Lymph % (Auto) 15.6 L [place] % (Auto) 6.7 Eos % (Auto) 0.1 Baso % (Auto) 0.4 Lymph # (Auto) 2.6 [place] # (Auto) 1.1 Eos # (Auto) 0.0 Baso # (Auto) 0.1 Abs Immat Gran (auto) 0.06 H Absolute Neuts (auto) 12.8 H Absolute Nucleated RBC 0.000 Nucleated RBC % (auto) 0.0 ESR 9 Anion Gap 21 H Estim Creat Clear Calc 180.1 Estimated GFR > 60 Random Glucose 223 H Lactic Acid 7.9 H* Lactic Acid F/U @ 2Hr Lactic Acid F/U @ 4Hr Calcium 9.5 D Magnesium 1.5 L Total Bilirubin 0.5 AST 39 H ALT 43 H Alkaline Phosphatase 98 Troponin I High Sens 14.0 C-Reactive Protein 0.52 H B-Natriuretic Peptide 37 Total Protein 7.2 Albumin 4.4 Beta-Hydroxybutyrate 0.07 Urine Color Urine Appearance Urine pH Ur Specific [place] Urine Protein Urine Glucose (UA) Urine Ketones Urine Blood Urine Nitrite Ur Leukocyte Esterase Urine Opiates Screen Ur Buprenorphine Scrn Ur Oxycodone Screen Urine Methadone Screen Urine Fentanyl Screen Ur Barbiturates Screen Ur Phencyclidine Scrn Ur Amphetamines Screen U Benzodiazepines Scrn Urine Cocaine Screen U Marijuana (THC) Screen Ethyl Alcohol 06/02/12/25 02/12/25 13:46 14:27 15:56 MCV MCH MCHC RDW Plt Count MPV Immature Gran % (Auto) Neut % (Auto) Lymph % (Auto) [place] % (Auto) Eos % (Auto) Baso % (Auto) Lymph # (Auto) [place] # (Auto) Eos # (Auto) Baso # (Auto) Abs Immat Gran (auto) Absolute Neuts (auto) Absolute Nucleated RBC Nucleated RBC % (auto) ESR Anion Gap Estim Creat Clear Calc Estimated GFR Random Glucose Lactic Acid 5.4 H* Lactic Acid F/U @ 2Hr 5.8 H* Lactic Acid F/U @ 4Hr Calcium Magnesium Total Bilirubin AST ALT Alkaline Phosphatase Troponin I High Sens 14.7 C-Reactive Protein B-Natriuretic Peptide Total Protein Albumin Beta-Hydroxybutyrate Urine Color Urine Appearance Urine pH Ur Specific [place] Urine Protein Urine Glucose (UA) Urine Ketones Urine Blood Urine Nitrite Ur Leukocyte Esterase Urine Opiates Screen Ur Buprenorphine Scrn Ur Oxycodone Screen Urine Methadone Screen Urine Fentanyl Screen Ur Barbiturates Screen Ur Phencyclidine Scrn Ur Amphetamines Screen U Benzodiazepines Scrn Urine Cocaine Screen U Marijuana (THC) Screen Ethyl Alcohol 163 02/12/25 02/12/25 16:01 18:09 MCV MCH MCHC RDW Plt Count MPV Immature Gran % (Auto) Neut % (Auto) Lymph % (Auto) [place] % (Auto) Eos % (Auto) Baso % (Auto) Lymph # (Auto) [place] # (Auto) Eos # (Auto) Baso # (Auto) Abs Immat Gran (auto) Absolute Neuts (auto) Absolute Nucleated RBC Nucleated RBC % (auto) ESR Anion Gap Estim Creat Clear Calc Estimated GFR Random Glucose Lactic Acid Lactic Acid F/U @ 2Hr Lactic Acid F/U @ 4Hr 4.9 H* Calcium Magnesium Total Bilirubin AST ALT Alkaline Phosphatase Troponin I High Sens C-Reactive Protein B-Natriuretic Peptide Total Protein Albumin Beta-Hydroxybutyrate Urine Color Yellow Urine Appearance Clear Urine pH 6.0 Ur Specific [place] 1.015 Urine Protein Negative Urine Glucose (UA) 100 H Urine Ketones Negative Urine Blood Negative Urine Nitrite Negative Ur Leukocyte Esterase Negative Urine Opiates Screen Not Detected Ur Buprenorphine Scrn Not Detected Ur Oxycodone Screen Not Detected Urine Methadone Screen Not Detected Urine Fentanyl Screen Not Detected Ur Barbiturates Screen POSITIVE H Ur Phencyclidine Scrn Not Detected Ur Amphetamines Screen Not Detected U Benzodiazepines Scrn Not Detected Urine Cocaine Screen POSITIVE H U Marijuana (THC) Screen Not Detected Ethyl Alcohol Imaging Radiologist's Impressions: Impressions Foot X-Ray 02/12/25 11:42 IMPRESSION: Postoperative changes involving first and second proximal phalanges and fifth metatarsal head and neck. Erosive change in the third PIP joint is likely chronic, but acute is not ruled out. Correlate for signs symptoms of septic arthritis. Large bony exostosis in the distal Achilles tendon is likely degenerative/post traumatic. Osteochondroma is not ruled out. Osteopenia. Electronically signed by: Bryant Zapien MD 02/12/2025 01:04 PM EDT RP Knee X-Ray 02/12/25 11:45 IMPRESSION: Below the knee amputation and osteopenia. Nonspecific periosteal new bone formation is present along the lateral metaphysis and diaphysis of the tibia. This could be related to surgery, stress response, or osteomyelitis. Given the smooth nature and large area of involvement, osteomyelitis is less likely. Electronically signed by: Bryant Zapien MD 02/12/2025 01:11 PM EDT RP Abdomen/Pelvis CT 02/12/25 14:31 IMPRESSION: Soft tissue ulceration is present in the region of the distal sacrum and coccyx. The coccyx is small. There is no definitive periosteal new bone formation or cortical destruction. However, CT is insensitive for evaluation of osteomyelitis. MRI without and with IV contrast is the standard care. There is faint ossified density in the soft tissues 1.5 cm caudal to the inferior tip of coccyx also visible on the prior examination. Osteomyelitis involving this small presumed accessory coccygeal fragment is not ruled out in or out. Indeterminate adrenal gland nodules, left greater than right. Follow-up CT or MRI without and with using adrenal gland protocol. Gallstones Fleischner guidelines were followed. Electronically signed by: Bryant Zapien MD 02/12/2025 04:56 PM EDT RP Chest CT 02/12/25 14:31 IMPRESSION: Subacute lateral right 5th rib fracture. No sign of pneumonia. Fleischner guidelines were followed. 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 #. Alcohol use disorder with concerns for withdrawal: Initiated phenobarb protocol in the ER. Monitor CIWA. Initiated thiamine. Consulted Addiction Team. #. Acute lactic acidosis due to alcohol use and liver disease #. Large sacral decubitus ulcer/chronic osteomyelitis of sacrum and coccyx/chronic osteomyelitis of right ischial tuberosity with ischial decubitus ulcer: Was evaluated by Infectious Disease during previous admission. Is on linezolid. End date: 02/16. Consulted Wound Care #. Hypokalemia and hypomagnesemia due to alcohol use: Repleted #. C diff: On oral vancomycin until patient is on linezolid #. Left-sided adrenal masses: Outpatient follow-up #. Liver cirrhosis: Not on diuretics or lactulose. Will need GI follow-up #. Peripheral vascular disease: On high-intensity statin. Not on antiplatelet agent #. Peripheral neuropathy: On Lyrica #. Mood disorder: Continue home mood stabilizers. Consulting psych to optimize as episodes of depression leading to alcohol use #. Hlf-bjjcgzr-xxepswhcr diabetes mellitus: Initiating Accu-Cheks with sliding scale insulin #. Hypertension: On lisinopril Med rec pending DVT prophylaxis: Lovenox Full code Admit as inpatient and will require two night minimum hospital stay for management of alcohol withdrawal (as above), which is not possible in a lesser acute setting. Quality Stroke Does the patient have a stroke diagnosis?: No VTE Prior VTE?: No VTE Risk Level:: Medical - moderate - high VTE Device Contraindication: N/A - Device Ordered VTE Drug Contraindication: Treatment Not Indicated
[2025-02-12] MEDS: PHENobarbitaL sodium 130 MG/ML IM ONCE 256 MG IM (19:54)
--- NOTE | 2025-02-12 20:12 | PHA.MEDREC ---
Pharmacy Consult ? Medication Reconciliation Pharmacy has completed the medication reconciliation. Spoke to patient to confirm medication list. Per patient, he is still taking atorvastatin and lisinopril (even though last pharmacy claim was in 08/15 for 90 day supply). He hasn't started linezolid and oxycodone that were prescribed on 02/06/25 due to not able to pick them up. He is not taking trazodone ( make me loopy and have nightmares ) nor quetiapine. He is still taking morphine prn even though it gives him hives. Last dose of medications was today 02/12/25.
[2025-02-12] MEDS: Folic Acid 1 MG in 0.9 % Sodium Chloride 50 ML 100.4 MG IV (21:00)
[2025-02-12] MEDS: vancomycin HCL 125 MG CAPSULE PO (21:00)
[2025-02-12] MEDS: Enoxaparin Sodium 40 MG/0.4 ML SYRINGE SUBCUT (21:00)
[2025-02-12] MEDS: Linezolid/D5W 600 MG/300 ML PIGGYBACK 300 MG IV (21:00)
[2025-02-12 21:07] LABS: Glucose, Whole Blood 162 mg/dL (60-115)
[2025-02-12] MEDS: Insulin Lispro 100 UNIT/ML 3 ML VIAL SUBCUT (21:59)
[2025-02-12] MEDS: HYDROmorphone HCl 1 MG/ML SYRINGE IVPUSH (22:00)
--- NOTE | 2025-02-12 22:00 | PC.NURSE ---
Patient awake and alert. skin pwd, resp even and non labored. speaking in full, clear sentences. ST via tele. Patient medicated w/ dilaudid per OCT for 8/10 coccyx pain. IV fluids infusing per OCT, awaiting room assignment for admission.
[2025-02-12] MEDS: PHENobarbitaL sodium 130 MG/ML VIAL IM Q3Hx2 192 MG IM (23:18)
[2025-02-13] VITALS (8 sets, daily range): BP systolic 105–163; BP diastolic 62–97; PULSE 80–101; RESP 11–20; TEMP 36.1–37.2; O2SAT 95–99; BMI 35.7; BMI 35.5
[2025-02-13] MEDS: PHENobarbitaL sodium 130 MG/ML VIAL IM Q3Hx2 192 MG IM (02:22)
[2025-02-13] MEDS: HYDROmorphone HCl 1 MG/ML SYRINGE IVPUSH ×5 (02:23→21:44)
[2025-02-13] MEDS: vancomycin HCL 125 MG CAPSULE PO ×4 (02:23→21:31)
[2025-02-13] MEDS: Lactated Ringers 1,000 ML 125 ML IVCONT ×3 (02:24→18:20)
[2025-02-13 04:34] LABS: Magnesium 1.4 mg/dL (1.6-2.6)
[2025-02-13 07:35] LABS: Glucose, Whole Blood 135 mg/dL (60-115)
[2025-02-13] MEDS: PHENobarbitaL 30 MG TABLET 60 MG PO ×2 (08:30→21:30)
[2025-02-13] MEDS: Thiamine HCL 100 MG TABLET PO (08:30)
[2025-02-13] MEDS: lisinopriL 5 MG TABLET PO (09:01)
[2025-02-13] MEDS: Pregabalin 75 MG CAPSULE 225 MG PO ×2 (09:01→21:31)
[2025-02-13] MEDS: glipiZIDE 5 MG TABLET PO (09:02)
[2025-02-13] MEDS: Potassium Chloride Packet 20 MEQ PACKET 40 MEQ PO (09:02)
[2025-02-13] MEDS: Magnesium Oxide 400 MG TABLET 800 MG PO (09:02)
[2025-02-13] MEDS: Escitalopram Oxalate 10 MG TABLET PO (09:02)
[2025-02-13] MEDS: Atorvastatin Calcium 40 MG TABLET PO (09:02)
[2025-02-13] MEDS: Folic Acid 1 MG in 0.9 % Sodium Chloride 50 ML 100.4 MG IV (09:03)
[2025-02-13] MEDS: Linezolid/D5W 600 MG/300 ML PIGGYBACK 300 MG IV ×2 (09:23→21:31)
[2025-02-13 09:29] LABS: Anion Gap 14 (12-20); Blood Urea Nitrogen 8 mg/dL (9-16); Carbon Dioxide 27 mmol/L (22-29); Chloride 101 mmol/L (96-108); Creatinine Clr Calc Pharmacy 171.4; Estimated Glomerular Filt Rate > 60; Glucose Random 173 mg/dL (60-115); Sodium 139 mmol/L (135-145)
[2025-02-13 09:30] LABS: Potassium 2.7 mmol/L (3.3-5.1)
[2025-02-13] MEDS: Magnesium Sulfate/H2O 2 GM/50 ML PIGGYBACK IV (10:31)
--- NOTE | 2025-02-13 10:37 | MHC.CM.PN ---
Addendum entered by Nieves Bryan 02/13/25 14:41: CM was informed by fellow staff member that Patient has indicated he wants to go to LTC; CM will continue to follow. Original Note: CM met with Patient at bedside, in the ED, and addressed IMM with him, providing Patient with the original and a copy will be placed on the chart. Patient lives alone in a house since his Father on 12/29/2024. Patient's Father was his CLINICAL ACADEMIC ALLERGIST and he qualifies for 15 hours/week but apparently the new CLINICAL ACADEMIC ALLERGIST has not been reliable. Patient is wc bound and will need BLS transport to home at dc. Patient has no PCP and has no one to name as a HCP. Home/resume CLINICAL ACADEMIC ALLERGIST is the tentative plan; CM has initiated and will follow for dc planning.
[2025-02-13 12:18] LABS: Glucose, Whole Blood 73 mg/dL (60-115)
--- NOTE | 2025-02-13 12:23 | PC.NURSE ---
Pt assisted to restroom w/wheelchair, padding changed. Pt given jerardo sumit and cranberry juice. Resting in bed, awaiting transport
[2025-02-13] MEDS: 0.9 % Sodium Chloride Flush 3 ML SYRINGE IVFLUSH ×2 (14:57→21:32)
[2025-02-13] MEDS: Acetaminophen 325 MG TABLET 650 MG PO (14:58)
[2025-02-13] MEDS: ondansetron HCL 4 MG/2 ML VIAL IVPUSH (14:58)
[2025-02-13 16:54] LABS: Glucose, Whole Blood 210 mg/dL (60-115)
[2025-02-13] MEDS: Insulin Lispro 100 UNIT/ML 3 ML VIAL SUBCUT ×2 (17:00→21:31)
--- NOTE | 2025-02-13 17:15 | P.PNIM_ITS ---
Subjective Subjective Date of Service: 02/13/25 Interval History: alcohol withdrawal Review of Systems seems somewhat sad, anxious denies new c/o Physical Exam 2 Vital Signs: Vital Signs: Last Vital Signs Temp 98.7 F 02/13/25 16:00 Pulse 80 02/13/25 16:00 Resp 18 02/13/25 16:00 BP 152/93 H 02/13/25 16:00 Pulse Ox 98 02/13/25 16:00 O2 Del Method Room Air 02/13/25 16:00 BMI result Body Mass Index 35.5 Neck supple, no JVD Tachycardic with a regular rhythm, S1-S2 heard Regular breath sounds bilaterally, no wheezing or crackles appreciated Abdomen soft nontender, no guarding, no rigidity Patient is awake, alert and oriented to self, place, time and person ; no focal motor deficit Psych: Normal mood Chronic sacral ulcer, right BKA Objective Data Active Medications Acetaminophen (Acetaminophen 325 Mg Tablet) 650 mg PO Q6H PRN PRN Reason: Pain, Mild 1-3,fever,headache Last Admin: 02/13/25 14:58 Dose: 650 mg Documented By: ARIAN Atorvastatin Calcium (Atorvastatin Calcium 40 Mg Tablet) 40 mg PO DAILY [facility] Last Admin: 02/13/25 09:02 Dose: 40 mg Documented By: SABRA Calcium Carbonate (Calcium Carbonate 750 Mg Tab.Chew) 750 mg PO Q4H PRN PRN Reason: Heartburn Dextrose (Dextrose 50 % 25 Gm/50 Ml Syringe) 25 gm IVPUSH Q15M PRN; Protocol PRN Reason: per Hypoglycemia Standing Ord. Enoxaparin Sodium (Enoxaparin Sodium 40 Mg/0.4 Ml Syringe) 40 mg SUBCUT Q24H [facility] Last Admin: 02/12/25 21:00 Dose: 40 mg Documented By: LETICIA Escitalopram Oxalate (Escitalopram Oxalate 10 Mg Tablet) 10 mg PO DAILY [facility] Last Admin: 02/13/25 09:02 Dose: 10 mg Documented By: SABRA Glipizide (Glipizide 5 Mg Tablet) 5 mg PO DAILY [facility] Last Admin: 02/13/25 09:02 Dose: 5 mg Documented By: SABRA Glucose (Glucose Gel 15 Gm Gel..Gram.) 15 gm PO Q15M PRN; Protocol PRN Reason: per Hypoglycemia Standing Ord. Hydromorphone HCl (Hydromorphone Hcl 1 Mg/Ml Syringe) 1 mg IVPUSH Q4H PRN; Protocol PRN Reason: Pain, Severe (Pain Scale 7-10) Last Admin: 02/13/25 17:00 Dose: 1 mg Documented By: ARIAN Lactated Ringer's (Lr) 1,000 mls @ 125 mls/hr IVCONT .Q8H [facility] Last Admin: 02/13/25 10:33 Dose: 125 mls/hr Documented By: SABRA Folic Acid 1 mg/ Sodium (Chloride) 50.2 mls @ 100.4 mls/hr IV DAILY [facility] Last Infusion: 02/13/25 09:33 Dose: Infused Documented By: SABRA Linezolid (Zyvox/D5w) 600 mg in 300 mls @ 300 mls/hr IV Q12H [facility] Last Infusion: 02/13/25 10:26 Dose: Infused Documented By: SABRA Insulin Human Lispro (Insulin Lispro 100 Unit/Ml 3 Ml Vial) 0 unit SUBCUT QIDACHS [facility]; Protocol Last Admin: 02/13/25 17:00 Dose: 4 unit Documented By: ARIAN Lisinopril (Lisinopril 5 Mg Tablet) 5 mg PO DAILY [facility]; Protocol Last Admin: 02/13/25 09:01 Dose: 5 mg Documented By: SABRA Magnesium Hydroxide (Milk Of Magnesia 30 Ml Oral.Susp) 30 ml PO DAILY PRN PRN Reason: Constipation Magnesium Oxide (Magnesium Oxide 400 Mg Tablet) 800 mg PO DAILY [facility] Last Admin: 02/13/25 09:02 Dose: 800 mg Documented By: SABRA Melatonin (Melatonin 3 Mg Tablet) 6 mg PO BEDTIME PRN PRN Reason: Insomnia Ondansetron HCl (Ondansetron Hcl 4 Mg/2 Ml Vial) 4 mg IVPUSH Q8H PRN PRN Reason: Nausea and Vomiting Last Admin: 02/13/25 14:58 Dose: 4 mg Documented By: ARIAN Pharmacy Consult (Consult Rx Etoh Phenob Im/Po) 1 each MISCELLANE ONCE PRN; Protocol PRN Reason: Consult order Phenobarbital (Phenobarbital 30 Mg Tablet) 60 mg PO BID [facility]; Protocol Stop: 02/14/25 21:01 Last Admin: 02/13/25 08:30 Dose: 60 mg Documented By: SABRA Phenobarbital (Phenobarbital 30 Mg Tablet) 30 mg PO BID [facility]; Protocol Stop: 02/16/25 21:01 Phenobarbital (Phenobarbital 30 Mg Tablet) 30 mg PO DAILY [facility]; Protocol Stop: 02/18/25 09:01 Pregabalin (Pregabalin 75 Mg Capsule) 225 mg PO BID [facility] Last Admin: 02/13/25 09:01 Dose: 225 mg Documented By: SABRA Quetiapine Fumarate (Quetiapine Fumarate 300 Mg Tablet) 300 mg PO BEDTIME [facility] Sodium Chloride (0.9 % Sodium Chloride Flush 3 Ml Syringe) 3 ml IVFLUSH QSHIFT [facility] Last Admin: 02/13/25 14:57 Dose: 3 ml Documented By: ARIAN Thiamine HCl (Thiamine Hcl 100 Mg Tablet) 100 mg PO DAILY [facility] Last Admin: 02/13/25 08:30 Dose: 100 mg Documented By: SABRA Vancomycin HCl (Vancomycin Hcl 125 Mg Capsule) 125 mg PO Q6H [facility] Last Admin: 02/13/25 14:56 Dose: 125 mg Documented By: ARIAN Labs 02/12/25 11:47 02/13/25 08:54 Labs: Laboratory Results - last 24 hr 02/12/25 02/12/25 02/13/25 18:09 21:03 04:06 Anion Gap Estim Creat Clear Calc Estimated GFR POC Glucose 162 H Random Glucose Lactic Acid F/U @ 4Hr 4.9 H* Calcium Magnesium 1.4 L* 02/13/25 02/13/25 02/13/25 07:32 08:54 12:11 Anion Gap 14 Estim Creat Clear Calc 171.4 Estimated GFR > 60 POC Glucose 135 H 73 Random Glucose 173 H Lactic Acid F/U @ 4Hr Calcium 8.0 L D Magnesium 02/13/25 16:51 Anion Gap Estim Creat Clear Calc Estimated GFR POC Glucose 210 H Random Glucose Lactic Acid F/U @ 4Hr Calcium Magnesium Microbiology Microbiology Results: Microbiology 02/12/25 12:25 Blood Culture - Preliminary Blood - Venous No growth after 24 hours. 02/12/25 12:01 Blood Culture - Preliminary Blood - Venous No growth after 24 hours. 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 Alcohol use disorder with concerns for withdrawal: Initiated phenobarb protocol in the ER. Monitor CIWA. Initiated thiamine. Consulted Addiction Team. Acute lactic acidosis due to alcohol use and liver disease Large sacral decubitus ulcer/chronic osteomyelitis of sacrum and coccyx/chronic osteomyelitis of right ischial tuberosity with ischial decubitus ulcer: Was evaluated by Infectious Disease during previous admission. Is on linezolid. End date: 02/16. Consulted Wound Care acute Hypokalemia and hypomagnesemia due to alcohol use: Repleted,moniter C diff: On oral vancomycin until patient is on linezolid Left-sided adrenal masses: Outpatient follow-up Liver cirrhosis: Not on diuretics or lactulose. Will need GI follow-up Peripheral vascular disease: On high-intensity statin. Not on antiplatelet agent. Peripheral neuropathy: On Lyrica Mood disorder: Continue home mood stabilizers. Consulting psych to optimize as episodes of depression leading to alcohol use Deh-docwqoh-zurbrffsz diabetes mellitus: Initiating Accu-Cheks with sliding scale insulin Hypertension: On lisinopril Polysubstance use disorder: UDS positive for cocaine. Appreciate Addiction Team Reactive leukocytosis. Is on linezolid DVT prophylaxis: Lovenox Full code ongoing need for hospital stay for management of alcohol withdrawal (as above), which is not possible in a lesser acute setting Quality Stroke Does the patient have a stroke diagnosis?: No VTE Prior VTE?: No VTE Risk Level:: Medical - moderate - high VTE Device Contraindication: N/A - Device Ordered VTE Drug Contraindication: Treatment Not Indicated
[2025-02-13 18:02] LABS: Magnesium 1.8 mg/dL (1.6-2.6); Potassium 3.2 mmol/L (3.3-5.1)
[2025-02-13 20:52] LABS: Glucose, Whole Blood 159 mg/dL (60-115)
[2025-02-13] MEDS: Enoxaparin Sodium 40 MG/0.4 ML SYRINGE SUBCUT (21:31)
[2025-02-13] MEDS: Potassium Chloride ER 20 MEQ TAB.ER.PRT 40 MEQ PO (21:31)
[2025-02-13] MEDS: QUEtiapine Fumarate 300 MG TABLET PO (21:31)
[2025-02-14] MEDS: Lactated Ringers 1,000 ML 125 ML IVCONT ×2 (03:04→14:03)
[2025-02-14] MEDS: vancomycin HCL 125 MG CAPSULE PO ×4 (03:07→21:49)
[2025-02-14 04:00] VITALS: BP 120/77; PULSE 81; RESP 18; TEMP 36.5; O2SAT 97
[2025-02-14 07:17] LABS: Hematocrit 33.7 % (42.0-52.0); Hemoglobin 11.5 g/dl (14.0-18.0); Mean Corpuscular HGB Conc 34.1 g/dl (31.0-36.0); Red Blood Count 3.83 X10*6/uL (4.60-5.80); Red Cell Distribution Width 16.1 % (11.0-16.0); White Blood Count 4.6 X10*3/uL (4.8-10.8)
[2025-02-14 07:24] VITALS: BP 131/70; PULSE 74; RESP 18; TEMP 37.2; O2SAT 98
[2025-02-14 07:35] LABS: Anion Gap 12 (12-20); Blood Urea Nitrogen 6 mg/dL (9-16); Calcium 8.5 mg/dL (8.4-10.2); Carbon Dioxide 30 mmol/L (22-29); Chloride 106 mmol/L (96-108); Creatinine Clr Calc Pharmacy 208.9; Estimated Glomerular Filt Rate > 60; Glucose Random 96 mg/dL (60-115); Potassium 3.9 mmol/L (3.3-5.1); Sodium 144 mmol/L (135-145)
[2025-02-14 08:00] LABS: Glucose, Whole Blood 105 mg/dL (60-115)
[2025-02-14] MEDS: Linezolid/D5W 600 MG/300 ML PIGGYBACK 300 MG IV ×2 (09:00→21:49)
[2025-02-14] MEDS: glipiZIDE 5 MG TABLET PO (09:08)
[2025-02-14] MEDS: Thiamine HCL 100 MG TABLET PO (09:08)
[2025-02-14] MEDS: Atorvastatin Calcium 40 MG TABLET PO (09:08)
[2025-02-14] MEDS: Pregabalin 75 MG CAPSULE 225 MG PO ×2 (09:08→21:44)
[2025-02-14] MEDS: PHENobarbitaL 30 MG TABLET 60 MG PO ×2 (09:08→21:44)
[2025-02-14] MEDS: lisinopriL 5 MG TABLET PO (09:08)
[2025-02-14] MEDS: Escitalopram Oxalate 10 MG TABLET PO (09:09)
[2025-02-14] MEDS: Magnesium Oxide 400 MG TABLET 800 MG PO (09:09)
--- NOTE | 2025-02-14 09:14 | MHC.CM.PN ---
Addendum entered by Emy Jones RN 02/14/25 14:47: CM SPOKE W/PT EXPERIENCE D/T PT TELLING HER HE DECIDED HE WANTED ADULT FOSTER CARE AFTER ALL HOWEVER PT AGAIN CHANGED HIS MIND AND DOES NOT WANT ANY REFERRALS PLACED HE DOES NOT WANT THEM TO FIND ABOUT HIS ETOH USE (PT ALSO POSITIVE FOR COCAINE). NO REFERRALS HAVE BEEN PLACED. Addendum entered by Emy Jones RN 02/14/25 12:23: CM MET W/PT TO DISCUSS DISPO, PT REPORTING HE WOULD LIKE A SNF FOR STR HOWEVER DOES NOT WANT IT TO BE LINEN CHECKER. PT ALSO REPORTS HE NEEDS TO RETURN TO HIS APT AND WOULD LIKE TO PACK UP BELONGINGS HOWEVER PT MADE AWARE IF HE GOES TO STR HE WILL HAVE TO GO DIRECTLY TO [place] [facility] [place]. CM ASKED ABOUT PSYCH IPLOC D/T DEPRESSION AND PT DENIES ANY MENTAL HEALTH/PSYCH ISSUES HOWEVER THEN SAYS HE HAS A [facility] COUNSELING THERAPIST AND THAT HE HAD AN IPLOC AT A FACILITY IN [place] AND HE DOES NOT WANT THAT EXPERIENCE AGAIN. PT DENIES SI/HI AND STATES, ANYONE WOULD BE DEPRESSED IF THERE DAD IN THEIR ARMS PT REPORTS HIS DAD HAD SEVERE DEMENTIA AND THAT HE HAD A MASSIVE STROKE . HOWEVER PT REPORTS HIS DAD WAS HIS SIGN ERECTOR SO THEY WERE LIVING ON HIS SSDI, DAD'S SS AND SIGN ERECTOR MONEY AND REPORTED PT HAD 5O HRS A WK OR BIWKLY. PT REPORTS HE NEEDS HELP WITH $4,000 IN BACK PAY SO HE WILL NOT GET EVICTED AND CM WROTE DOWN NUMBER FOR WAY FINDERS AND ENCOURAGED PT TO CALL UNTIL HE GETS THROUGH TO SOMEONE THEY WOULD BE THE PEOPLE TO ASSIST OR SUGGEST OTHER RESOURCES. PT ALSO REQUESTED HELP FINDING A [employer] OR CLEANING COMPANY TO COME CLEAN OUT HIS APT AN D REPORTS THERE IS A LOT OF SOILED TRASH FROM HIS DAD BECAUSE HE WAS PEEING EVERYWHERE. PT HAS CELL PHONE AND HANDHELD VIDEO GAME AT BEDSIDE. PT INSTRUCTED TO PT TO GOOGLE [employer] AND PT THINKS HE MAY NEED PROFESSIONAL/BIOHAZARD CLEAN UP AND PT TOLD HE NEEDED TO START CALLING PLACES TO ASK FOR QUOTES. PT ALSO REPORTS SS WAS ASSISTING HIM W/ADULT FOSTER CARE HOWEVER PT DID NOT HAVE TRANSPORTATION FOR THE HOME VISIT. WHEN CM TOLD PT CM COULD ASSIST W/PT1 HE THEN CLAIMED THAT THE CASE WAS CANCELLED. PT REPORTS HE DOES NOT HAVE ANY FAMILY OR FRIENDS WHO CAN ASSIST HIM WITH ANYTHING AND THAT HE DOES HAVE ONE BROTHER WHO LIVES OUT OF AREA HOWEVER HE LIVES W/AND CARES FOR PT'S GRANDFATHER AND IS UNABLE TO GET AWAY. OF NOTE PT APPEARS TO BE A POOR OR ACCURATE HISTORIAN HE CONTRADICTED HIMSELF MANY TIMES THROUGHOUT CONVERSATION. CM DID OFFER HOME SERVICES INCLUDING VNA/SIGN ERECTOR HE HAS MEDICARE/MEDICAID HOWEVER PT DOES NOT WANT ANYONE IN HIS APT D/T THE STATE OF UNCLEANLINESS AND FLIES. DCP CURRENTLY WILL BE HOME NO SERVICES, CM WILL NEED TO ARRANGE TRANSPORT AND WILL CHECK ON PT1 STATUS. Original Note: EMR REVIEWED, PT W/ETOH WITHDRWAL/LACTIC ACIDOSIS, PER HOSPITALIST PLAN FOR PSYCH/CARE TEAM TO SEE PT, SEEN BY RECOVERY TEAM AND DECLINED MIGUEL AND OUTPT TARIQ [place], PT REQUESTING LTC, CM WILL MEET W/PT TO DISCUSS AND CONT TO FOLLOW DC NEEDS.
[2025-02-14] MEDS: HYDROmorphone HCl 1 MG/ML SYRINGE IVPUSH ×4 (09:22→21:45)
[2025-02-14 10:44] VITALS: BMI 35.5
--- NOTE | 2025-02-14 10:48 | MHC.CLN ---
CONSULT: PT WITH INCREASED NUTRITION RISK R/T PRESSURE INJURY REGULAR DIET IN PLACE RECOMMEND ADDING ENSURE BID TO PROMOTE WOUND HEALING ENSURE BID TO PROVIDE 700KCALS, 40G PROTEIN MONITOR PO INTAKE AND ENCOURAGE SUPPLEMENTS SEE FULL CLINICAL NUTRITION ASSESSMENT
[2025-02-14 11:21] VITALS: BP 150/96; PULSE 110; RESP 18; TEMP 36.9; O2SAT 99
[2025-02-14] MEDS: Folic Acid 1 MG in 0.9 % Sodium Chloride 50 ML 100.4 MG IV (11:29)
[2025-02-14 11:36] LABS: Glucose, Whole Blood 172 mg/dL (60-115)
[2025-02-14] MEDS: Insulin Lispro 100 UNIT/ML 3 ML VIAL SUBCUT (12:00)
--- NOTE | 2025-02-14 14:03 | HO.WOUND ---
Wound Consult: Initial 40yr old?male admitted to [facility] [place] on 02/12/25 - See progress notes and H&P for detailed history.? Wound consult placed for Sacrum and Right BKA site.? Patient agreeable to assessment and photo documentation.? Chart review and photo reviewed. Sacrum Etiology: ??Resurfacing stage 4 Pressure Injury - Present on Admission Wound Bed: mainly resurfaced tissue - small scabs noted stable no drainage noted Drainage / Odor: None Edges: ? irregular scar tissue noted - irregular healing noted Katie wound: ? red pink intact tissue - evidence of old injury to bilateral ischium - No Induration, Fluctuance or Warmth noted Pain: pain and tenderness reported Goals of Treatment: ? Specialty bed recommended, foam and off loading recommended Right BKA site noted for redness - no open tissue noted - no topical wound recommendations needed at this time. Recommendations: 1. Turn and Reposition every 2 hours and as needed for patient comfort.? Use pillows or wedges to support off loading positions. 2. Off Load all bony prominences with use of pillows and heel boots if needed.? Apply Preventative foams where needed. ? 3. Monitor for incontinence and moisture control, use barrier creams when needed for prevention and treatment. 4. Provide adequate and supplemental nutrition.? 5. Order Specialty Bed from [facility] - Pulsate bed. 6. When applicable maintain blood glucose levels per Providers order. Right BKA - No topical interventions needed. Sacrum - Off Load Pressure with Q2 hr turns and use of pillows - Routine cleansing.? Apply skin prep allow to dry.? Cover with foam dressing to aid in off loading and protection from friction. May use barrier cream in place of foam dressing. Change every 3-5 days and PRN. Re-consult wound care Nurse for wound deterioration or wound changes.
[2025-02-14 15:14] VITALS: BP 139/90; PULSE 87; RESP 18; TEMP 36.6; O2SAT 97
[2025-02-14 15:21] LABS: Glucose, Whole Blood 116 mg/dL (60-115)
--- NOTE | 2025-02-14 16:53 | P.PNIM_ITS ---
Subjective Subjective Date of Service: 02/14/25 Interval History: alcohol withdrawal Review of Systems seems improving patient also requested ltc. Physical Exam 2 Vital Signs: Vital Signs: Last Vital Signs Temp 97.9 F 02/14/25 15:14 Pulse 87 02/14/25 15:14 Resp 18 02/14/25 15:14 BP 139/90 H 02/14/25 15:14 Pulse Ox 97 02/14/25 15:14 O2 Del Method Room Air 02/14/25 15:14 BMI result Body Mass Index 35.5 Neck supple, no JVD Tachycardic with a regular rhythm, S1-S2 heard Regular breath sounds bilaterally, no wheezing or crackles appreciated Abdomen soft nontender, no guarding, no rigidity Patient is awake, alert and oriented to self, place, time and person ; no focal motor deficit Psych: Normal mood Chronic sacral ulcer, right BKA Objective Data Active Medications Acetaminophen (Acetaminophen 325 Mg Tablet) 650 mg PO Q6H PRN PRN Reason: Pain, Mild 1-3,fever,headache Last Admin: 02/13/25 14:58 Dose: 650 mg Documented By: ARIAN Atorvastatin Calcium (Atorvastatin Calcium 40 Mg Tablet) 40 mg PO DAILY [facility] Last Admin: 02/14/25 09:08 Dose: 40 mg Documented By: RADHA Calcium Carbonate (Calcium Carbonate 750 Mg Tab.Chew) 750 mg PO Q4H PRN PRN Reason: Heartburn Dextrose (Dextrose 50 % 25 Gm/50 Ml Syringe) 25 gm IVPUSH Q15M PRN; Protocol PRN Reason: per Hypoglycemia Standing Ord. Enoxaparin Sodium (Enoxaparin Sodium 40 Mg/0.4 Ml Syringe) 40 mg SUBCUT Q24H [facility] Last Admin: 02/13/25 21:31 Dose: 40 mg Documented By: FLACO Escitalopram Oxalate (Escitalopram Oxalate 10 Mg Tablet) 10 mg PO DAILY [facility] Last Admin: 02/14/25 09:09 Dose: 10 mg Documented By: RADHA Glipizide (Glipizide 5 Mg Tablet) 5 mg PO DAILY [facility] Last Admin: 02/14/25 09:08 Dose: 5 mg Documented By: RADHA Glucose (Glucose Gel 15 Gm Gel..Gram.) 15 gm PO Q15M PRN; Protocol PRN Reason: per Hypoglycemia Standing Ord. Hydromorphone HCl (Hydromorphone Hcl 1 Mg/Ml Syringe) 1 mg IVPUSH Q4H PRN; Protocol PRN Reason: Pain, Severe (Pain Scale 7-10) Last Admin: 02/14/25 13:25 Dose: 1 mg Documented By: RADHA Lactated Ringer's (Lr) 1,000 mls @ 125 mls/hr IVCONT .Q8H CHERISE Last Admin: 02/14/25 14:03 Dose: 125 mls/hr Documented By: RADHA Folic Acid 1 mg/ Sodium (Chloride) 50.2 mls @ 100.4 mls/hr IV DAILY [facility] Last Infusion: 02/14/25 12:01 Dose: Infused Documented By: RADHA Linezolid (Zyvox/D5w) 600 mg in 300 mls @ 300 mls/hr IV Q12H [facility] Last Infusion: 02/14/25 11:52 Dose: Infused Documented By: RADHA Insulin Human Lispro (Insulin Lispro 100 Unit/Ml 3 Ml Vial) 0 unit SUBCUT QIDACHS [facility]; Protocol Last Admin: 02/14/25 16:26 Dose: Not Given Documented By: RADHA Non-Admin Reason: No Insulin Coverage Lisinopril (Lisinopril 5 Mg Tablet) 5 mg PO DAILY [facility]; Protocol Last Admin: 02/14/25 09:08 Dose: 5 mg Documented By: RADHA Magnesium Hydroxide (Milk Of Magnesia 30 Ml Oral.Susp) 30 ml PO DAILY PRN PRN Reason: Constipation Magnesium Oxide (Magnesium Oxide 400 Mg Tablet) 800 mg PO DAILY [facility] Last Admin: 02/14/25 09:09 Dose: 800 mg Documented By: RADHA Melatonin (Melatonin 3 Mg Tablet) 6 mg PO BEDTIME PRN PRN Reason: Insomnia Ondansetron HCl (Ondansetron Hcl 4 Mg/2 Ml Vial) 4 mg IVPUSH Q8H PRN PRN Reason: Nausea and Vomiting Last Admin: 02/13/25 14:58 Dose: 4 mg Documented By: ARIAN Pharmacy Consult (Consult Rx Etoh Phenob Im/Po) 1 each MISCELLANE ONCE PRN; Protocol PRN Reason: Consult order Phenobarbital (Phenobarbital 30 Mg Tablet) 60 mg PO BID [facility]; Protocol Stop: 02/14/25 21:01 Last Admin: 02/14/25 09:08 Dose: 60 mg Documented By: RADHA Phenobarbital (Phenobarbital 30 Mg Tablet) 30 mg PO BID [facility]; Protocol Stop: 02/16/25 21:01 Phenobarbital (Phenobarbital 30 Mg Tablet) 30 mg PO DAILY [facility]; Protocol Stop: 02/18/25 09:01 Pregabalin (Pregabalin 75 Mg Capsule) 225 mg PO BID [facility] Last Admin: 02/14/25 09:08 Dose: 225 mg Documented By: RADHA Quetiapine Fumarate (Quetiapine Fumarate 300 Mg Tablet) 300 mg PO BEDTIME [facility] Last Admin: 02/13/25 21:31 Dose: 300 mg Documented By: FLACO Sodium Chloride (0.9 % Sodium Chloride Flush 3 Ml Syringe) 3 ml IVFLUSH QSHIFT [facility] Last Admin: 02/14/25 11:33 Dose: Not Given Documented By: RADHA Non-Admin Reason: IV Running Thiamine HCl (Thiamine Hcl 100 Mg Tablet) 100 mg PO DAILY [facility] Last Admin: 02/14/25 09:08 Dose: 100 mg Documented By: RADHA Vancomycin HCl (Vancomycin Hcl 125 Mg Capsule) 125 mg PO Q6H [facility] Last Admin: 02/14/25 14:06 Dose: 125 mg Documented By: RADHA Labs 02/14/25 06:39 02/14/25 06:39 Labs: Laboratory Results - last 24 hr 02/13/25 02/13/25 02/13/25 16:51 17:31 20:47 MCV MCH MCHC RDW Plt Count MPV Absolute Nucleated RBC Nucleated RBC % (auto) Anion Gap Estim Creat Clear Calc Estimated GFR POC Glucose 210 H 159 H Random Glucose Calcium Magnesium 1.8 02/14/25 02/14/25 02/14/25 06:39 07:55 11:33 MCV 88.0 MCH 30.0 MCHC 34.1 RDW 16.1 H Plt Count TNP MPV TNP Absolute Nucleated RBC 0.000 Nucleated RBC % (auto) 0.0 Anion Gap 12 Estim Creat Clear Calc 208.9 Estimated GFR > 60 POC Glucose 105 172 H Random Glucose 96 Calcium 8.5 D Magnesium 02/14/25 15:17 MCV MCH MCHC RDW Plt Count MPV Absolute Nucleated RBC Nucleated RBC % (auto) Anion Gap Estim Creat Clear Calc Estimated GFR POC Glucose 116 H Random Glucose Calcium Magnesium Microbiology Microbiology Results: Microbiology 02/12/25 12:25 Blood Culture - Preliminary Blood - Venous No growth after 48 hours. 02/12/25 12:01 Blood Culture - Preliminary Blood - Venous No growth after 48 hours. 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 Alcohol use disorder with concerns for withdrawal: continue phenobarb. Monitor CIWA. Initiated thiamine. Consulted Addiction Team:? ltc Acute lactic acidosis due to alcohol use and liver disease Large sacral decubitus ulcer/chronic osteomyelitis of sacrum and coccyx/chronic osteomyelitis of right ischial tuberosity with ischial decubitus ulcer: Was evaluated by Infectious Disease during previous admission. Is on linezolid. End date: 02/16. Sacrum : Etiology: ??Resurfacing stage 4 Pressure Injury - Present on Admission Turn and Reposition every 2 hours and as needed for patient comfort.? Use pillows or wedges to support off loading positions. Off Load all bony prominences with use of pillows and heel boots if needed.? Apply Preventative foams where needed. ? Monitor for incontinence and moisture control, use barrier creams when needed for prevention and treatment. Provide adequate and supplemental nutrition.? When applicable maintain blood glucose levels per Providers order. Right BKA - No topical interventions needed. Sacrum - Off Load Pressure with Q2 hr turns and use of pillows - Routine cleansing.? Apply skin prep allow to dry.? Cover with foam dressing to aid in off loading and protection from friction. May use barrier cream in place of foam dressing. Change every 3-5 days and PRN. depression: psych eval pending acute Hypokalemia and hypomagnesemia due to alcohol use: Repleted,moniter C diff: On oral vancomycin until patient is on linezolid Left-sided adrenal masses: Outpatient follow-up Liver cirrhosis: Not on diuretics or lactulose. Will need GI follow-up Peripheral vascular disease: On high-intensity statin. Not on antiplatelet agent. Peripheral neuropathy: On Lyrica Mood disorder: Continue home mood stabilizers. Consulting psych to optimize as episodes of depression leading to alcohol use Exz-whnmtws-zrefezyzh diabetes mellitus: Initiating Accu-Cheks with sliding scale insulin Hypertension: On lisinopril Polysubstance use disorder: UDS positive for cocaine. Appreciate Addiction Team Reactive leukocytosis. Is on linezolid DVT prophylaxis: Lovenox Full code ongoing need for hospital stay for management of alcohol withdrawal (as above), which is not possible in a lesser acute setting, Quality Stroke Does the patient have a stroke diagnosis?: No VTE Prior VTE?: No VTE Risk Level:: Medical - moderate - high VTE Device Contraindication: N/A - Device Ordered VTE Drug Contraindication: Treatment Not Indicated
[2025-02-14 20:00] VITALS: BP 149/90; PULSE 89; RESP 18; TEMP 36.2; O2SAT 99
[2025-02-14 20:18] LABS: Glucose, Whole Blood 150 mg/dL (60-115)
[2025-02-14] MEDS: Enoxaparin Sodium 40 MG/0.4 ML SYRINGE SUBCUT (21:45)
[2025-02-14] MEDS: QUEtiapine Fumarate 300 MG TABLET PO (21:49)
[2025-02-14] MEDS: Simethicone 80 MG TAB.CHEW PO (22:08)
[2025-02-14 23:43] VITALS: BP 120/63; PULSE 88; RESP 20; TEMP 36.3; O2SAT 96
[2025-02-15] MEDS: vancomycin HCL 125 MG CAPSULE PO ×3 (01:28→13:50)
[2025-02-15] MEDS: HYDROmorphone HCl 1 MG/ML SYRINGE IVPUSH ×3 (01:28→10:31)
[2025-02-15] MEDS: 0.9 % Sodium Chloride Flush 3 ML SYRINGE IVFLUSH ×2 (01:32→09:29)
[2025-02-15 03:59] VITALS: BP 125/74; PULSE 84; RESP 18; TEMP 36.4; O2SAT 98
[2025-02-15 07:09] LABS: Glucose, Whole Blood 120 mg/dL (60-115)
[2025-02-15 07:26] VITALS: BP 131/78; PULSE 82; RESP 18; TEMP 36.4; O2SAT 97
[2025-02-15] MEDS: Linezolid/D5W 600 MG/300 ML PIGGYBACK 300 MG IV (08:58)
[2025-02-15] MEDS: glipiZIDE 5 MG TABLET PO (08:59)
[2025-02-15] MEDS: lisinopriL 5 MG TABLET PO (08:59)
[2025-02-15] MEDS: Thiamine HCL 100 MG TABLET PO (08:59)
[2025-02-15] MEDS: Pregabalin 75 MG CAPSULE 225 MG PO (08:59)
[2025-02-15] MEDS: Magnesium Oxide 400 MG TABLET 800 MG PO (08:59)
[2025-02-15] MEDS: PHENobarbitaL 30 MG TABLET PO (09:00)
[2025-02-15] MEDS: Folic Acid 1 MG in 0.9 % Sodium Chloride 50 ML 300 MG IV (09:29)
[2025-02-15] MEDS: Atorvastatin Calcium 40 MG TABLET PO (09:30)
[2025-02-15] MEDS: Escitalopram Oxalate 10 MG TABLET PO (09:31)
[2025-02-15 10:51] LABS: Glucose, Whole Blood 97 mg/dL (60-115)
[2025-02-15 10:56] VITALS: BP 140/81; PULSE 87; RESP 18; TEMP 36.3; O2SAT 96
--- NOTE | 2025-02-15 11:26 | HO.WOUND ---
Wound Consult: Follow up 40yr old?[place] [facility] [place] See progress notes and H&P for detailed history.? Wound consult follow up for Sacrum and Right BKA site.? Patient agreeable to assessment and photo documentation.? Patient reports comfort in [facility] Pulsate bed set to 4 bars and alternate Q10min. Reports comfort recommend continuing with specialty bed at this time. Patient reports discomfort to sacrum and notes he is finding drainage on bed linen- agreeable to assessment - tissue is no longer scabbed but open and moist - topical recommendations will be made below for durafiber AG. While discussing with patient home care he reports his father was his PCP who recently . He reports he does not have other family or care available to him. After discussing with Case Mgt he has refused all skilled facility care at this time and does not have a PCP therefore will not be VNA eligible. He was agreeable to outpt wound clinic and does have transportation available to him per case mgt. I recommend he obtain new PCP in order to qualify for VNA services and in the mean time to arrange for transportation to outpt wound clinic for care and follow up. Provider aware of concerns and challenges with discharging to home with limited resources. Sacrum - S/p Flap and plastic reconstruction multiple times. irregular healed tissue noted - scar tissue and thin covering over bone. Left Sacrum Etiology: ??Resurfacing stage 4 Pressure Injury - Present on Admission Wound Bed: open pink white tissue with maceration noted Drainage / Odor: scant serosang noted on bed linen Edges: ?macerated - irregular scar tissue noted - irregular healing noted Katie wound: ? red pink intact tissue - evidence of old injury to bilateral ischium - No Induration, Fluctuance or Warmth noted Pain: pain and tenderness reported Goals of Treatment: ? Specialty bed recommended, Durafiber and foam and off loading recommended Right BKA site noted for pink intact hyperpigmented tissue - no open tissue noted - no topical wound recommendations needed at this time. Left Toes - dry stable scabs noted - mild erythema noted - significant debrie burden cleansed and beatdine applied - no topical reocmmendations needed at this time as scabs are stable. Patient reports he is unsure of the cause of the injury - suspect friction. Left heel intact - no PI noted at this time - recommend off loading with pillows may apply preventative foams. Recommendations: 1. Turn and Reposition every 2 hours and as needed for patient comfort.? Use pillows or wedges to support off loading positions. 2. Off Load all bony prominences with use of pillows and heel boots if needed.? Apply Preventative foams where needed. ? 3. Monitor for incontinence and moisture control, use barrier creams when needed for prevention and treatment. 4. Provide adequate and supplemental nutrition.? 5. Order Specialty Bed from [facility] - Pulsate bed. 6. When applicable maintain blood glucose levels per Providers order. Right BKA - No topical interventions needed. Left Toes - Stable clean scabs - no topical interventions needed at this time. Sacrum - Off Load Pressure with Q2 hr turns and use of pillows - Cleanse with NS moist gauze. Apply skin prep allow to dry.? Apply Durafiber AG, cover with foam dressing. Change every 3 days and PRN. Re-consult wound care Nurse for wound deterioration or wound changes.
--- NOTE | 2025-02-15 12:04 | MHC.CM.PN ---
Addendum entered by Emy Jones RN 02/15/25 14:18: PT PROVIDED W/PHP BROCHURE PER REQUEST OF [facility] [employer] CM ATTMEPTED TO MAKE AN APPT FOR PT AT [facility], DETAILED MESSAGE LEFT AND CONTACT NUMBER/ADDRESS ADDED TO DC PLAN. Original Note: PT MEDICALLY CLEARED FOR DC HOME W/OUTPT FOLLOW-UP AT [facility],NEW PCP APPT W/ARIES VAZQUEZ PA-C 06/25/25 AT 1:30PM, PT REPORTS HE WILL UBER HIMSELF HOME. PT TO BE SEEN BY PSYCH PRIOR TO DC.
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
--- NOTE | 2025-02-15 14:09 | PM.DS ---
DS: Providers Provider Date of Service: 02/15/25 Date of admission: 02/12/25 17:45 Date of discharge: 02/15/25 Primary care physician: Unknown Physician Consults: 02/12/25 19:45 Addiction Medicine Provider Routine Consulting Provider: Addiction Covering Reason for consultation: alcohol use disorder 02/12/25 19:58 Consult to Psychiatry Routine Consulting Provider: [facility] Reason for consultation: Major depressive disorder, decompensated 02/13/25 07:52 Consult to Wound Care Routine Reason for consultation: previus PI to sacrum, redness to BKA site Attending physician on discharge: Rolanda Stallworth Discharging clinician: Rolanda Stallworth DS: Diagnosis Discharge Diagnosis (1) Bipolar disorder: Status: Acute (2) PTSD (post-traumatic stress disorder): Status: Acute DS: Summary Hospital Course Hospital Course: hpi:40-year-old male with 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 Patient states he has been depressed over his father's and resumed taking alcohol. His last drink was on the morning of presentation. He apparently had 10 shots of alcohol on the morning of presentation. Patient has had symptoms of alcohol withdrawal all day since he stopped drinking. He has been having tremors. Does have history of alcohol withdrawal. No history of alcohol withdrawal seizures. He is complaining of low back pain due to sacral wound. He is wheelchair-bound. No fever, chills, chest pain, palpitations, abdominal pain. No SI or HI at the time of admission. Of note, patient was recently admitted on 02/02 with osteomyelitis of left proximal phalanx, alcohol withdrawal and discharged on 02/06 with p.o. linezolid. In the emergency department, patient was initiated on phenobarb protocol. 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 Alcohol use disorder with concerns for withdrawal: Seems to be improved with phenobarb, seen by addiction Team-strongly advised to abstain from alcohol, patient is to follow-up out patiently. Acute lactic acidosis due to alcohol use and liver disease. Large sacral decubitus ulcer/chronic osteomyelitis of sacrum and coccyx/chronic osteomyelitis of right ischial tuberosity with ischial decubitus ulcer: Was evaluated by Infectious Disease during previous admission. Is on linezolid. Patient says that he has linezolid at home and he will complete his linezolid course. wound care: Topical Wound Care Recommendations: Right BKA - No topical interventions needed. Left Toes - Stable clean scabs - no topical interventions needed at this time. may cover with bandaid if slippers cause friction. Sacrum - Off Load Pressure with frequent repositions and use of pillows to aid in off loading. Recommend chair cushion such as waffle cushion when in wheelchair. Cleanse with Normal saline moist gauze or routine showering with soap and water, dry well. Apply skin prep or barrier cream to area around wound.? Apply Durafiber AG to open wound area, cover with foam or dry gauze dressing. Change every 3 days and PRN. Recommend follow up out patient Wound Clinic at [address] [place] [id number] and to call for an appointment at time of discharge. [phone].? depression: Seen by psych patient says that he has his psychotherapy appointment tomorrow. acute Hypokalemia and hypomagnesemia due to alcohol use: Repleted and resolved, strongly advised to abstain from alcohol, monitor electrolytes outpatient. C diff: On oral vancomycin until patient is on linezolid. Left-sided adrenal masses: Outpatient follow-up. Liver cirrhosis: Not on diuretics or lactulose. Follow with GI outpatient. plan: Complete linezolid at home. Vancomycin until on linezolid. Added limited supply for p.o. magnesium and potassium for 3 days days. Monitor BMP and magnesium level out patiently in 1 week. Strongly advised to abstain from alcohol, follow-up with the wound care as well as primary doctor outpatient appointment and psychotherapy. In addition will lead outpatient follow-up for Left-sided adrenal masses. Patient was told to outpatient follow-up with wound care, if any worsening of wound please come back to the emergency room for further management. Time Attestation Total time managing care of this patient today: 40 mintues. Discharge Coordination Time (in mins): 40 min Quality: Safe Use of Opioids Does Pt have an Active Cancer Diagnosis on the Problem List?: No Quality: Stroke Does the patient have a stroke diagnosis?: No Physical Exam Vital Signs: Vital Signs: Last Vital Signs Temp 97.3 F 02/15/25 10:56 Pulse 87 02/15/25 10:56 Resp 18 02/15/25 10:56 BP 140/81 H 02/15/25 10:56 Pulse Ox 96 02/15/25 10:56 O2 Del Method Room Air 02/15/25 10:56 BMI result Body Mass Index 35.5 Neck supple, no JVD Tachycardic with a regular rhythm, S1-S2 heard Regular breath sounds bilaterally, no wheezing or crackles appreciated Abdomen soft nontender, no guarding, no rigidity Patient is awake, alert and oriented to self, place, time and person ; no focal motor deficit Psych: Normal mood Chronic sacral ulcer, right BKA DS: Data Data Completed and Pending Labs on day of discharge: Laboratory Results - last 24 hr 02/14/25 02/14/25 02/15/25 15:17 20:01 07:05 POC Glucose 116 H 150 H 120 H 02/15/25 10:48 POC Glucose 97 Preliminary micro results at discharge 02/12/25 12:25 Blood Culture - Preliminary Blood - Venous No growth after 48 hours. 02/12/25 12:01 Blood Culture - Preliminary Blood - Venous No growth after 48 hours. Imaging Chest x-ray: Radiologist's impression: ITS Impressions Foot X-Ray 02/12/25 11:42 IMPRESSION: Postoperative changes involving first and second proximal phalanges and fifth metatarsal head and neck. Erosive change in the third PIP joint is likely chronic, but acute is not ruled out. Correlate for signs symptoms of septic arthritis. Large bony exostosis in the distal Achilles tendon is likely degenerative/post traumatic. Osteochondroma is not ruled out. Osteopenia. Knee X-Ray 02/12/25 11:45 IMPRESSION: Below the knee amputation and osteopenia. Nonspecific periosteal new bone formation is present along the lateral metaphysis and diaphysis of the tibia. This could be related to surgery, stress response, or osteomyelitis. Given the smooth nature and large area of involvement, osteomyelitis is less likely. Abdomen/Pelvis CT 02/12/25 14:31 IMPRESSION: Soft tissue ulceration is present in the region of the distal sacrum and coccyx. The coccyx is small. There is no definitive periosteal new bone formation or cortical destruction. However, CT is insensitive for evaluation of osteomyelitis. MRI without and with IV contrast is the standard care. There is faint ossified density in the soft tissues 1.5 cm caudal to the inferior tip of coccyx also visible on the prior examination. Osteomyelitis involving this small presumed accessory coccygeal fragment is not ruled out in or out. Indeterminate adrenal gland nodules, left greater than right. Follow-up CT or MRI without and with using adrenal gland protocol. Gallstones Fleischner guidelines were followed. Chest CT 02/12/25 14:31 IMPRESSION: Subacute lateral right 5th rib fracture. No sign of pneumonia. Fleischner guidelines were followed. Discharge Plan Discharge Anticipated Discharge Date/Time: 02/15/25 13:37 Patient Disposition: Home, Self-Care Discharge Diagnosis: alcohol withdrawals Referrals: [facility] [Other] - 1 Week Referral Note: PLEASE FOLLOW UP WITH [facility] AT [phone]. CASE MANAGEMENT DID NOT RECEIVE CALL BACK FROM CLINIC PRIOR TO YOUR DISCHARGE. Jesus Gonzalez PA-C [Physician [employer]er, Internal Medicine] - 06/25/25 1:30 pm Referral Note: NEW PCP APPT TO ESTABLISH CARE. PLEASE ARRIVE EARLY AND CALL OFFICE [phone] TO SPEAK WITH SOMEONE REGARDING SETTING UP YOUR PT1 TRANSPORTATION. Discharge Medications: New vancomycin 125 mg Capsule 125 mg PO Q6H Qty: 16 0RF oxycodone 5 mg capsule 5 mg PO Q6H PRN (Reason: pain) Qty: 14 0RF Rx Instructions: Partial Fill upon patient request. Continued quetiapine 300 mg tablet 300 mg PO BEDTIME morphine 15 mg tablet 15 mg PO Q8H PRN (Reason: pain) glipizide 5 mg tablet 5 mg PO DAILY escitalopram oxalate 10 mg tablet 10 mg PO DAILY pregabalin 225 mg capsule 225 mg PO BID atorvastatin 40 mg tablet 40 mg PO DAILY lisinopril 5 mg tablet 5 mg PO DAILY Discharge Orders: Discharge Order (Routine); Ordered 02/15/25 Ordered By: Rolanda Stallworth Diet: Advance to usual diet Activity on Discharge: As tolerated Stand Alone Forms: Patient Portal Discharge page Print Language: Frisian Activity Restrictions/Additional Instructions: Topical Wound Care Recommendations: Right BKA - No topical interventions needed. Left Toes - Stable clean scabs - no topical interventions needed at this time. may cover with bandaid if slippers cause friction. Sacrum - Off Load Pressure with frequent repositions and use of pillows to aid in off loading. Recommend chair cushion such as waffle cushion when in wheelchair. Cleanse with Normal saline moist gauze or routine showering with soap and water, dry well. Apply skin prep or barrier cream to area around wound.? Apply Durafiber AG to open wound area, cover with foam or dry gauze dressing. Change every 3 days and PRN. Recommend follow up out patient Wound Clinic at [address] [place] [address] and to call for an appointment at time of discharge. [phone].? Care Plan Goals: as above. Health Concerns: Complete linezolid at home. Vancomycin until on linezolid. Patient was told to outpatient follow-up with wound care, if any worsening of wound please come back to the emergency room for further management. Plan of Treatment: As above. Assessment: As above. Patient Instructions: Oxycodone/Acetaminophen (By mouth), Vancomycin (By mouth) Discharge Date/Time: 02/15/25 15:23
== END 2025-02-15 15:23 | disposition home or self-care (01) | DRG 896 ==
LOC: HO.ED 12:40 → HO.EDOVER 18:30 → HO.IMC 02-13 11:28
PROVIDERS: Physician Assistant; Student in an Organized Health Care Education/Training Program; Admitting Provider Internal Medicine; Emergency Provider Emergency Medicine; Visit Provider Internal Medicine
DX: F10.939 Alcohol use, unspecified with withdrawal, unspecified (principal); L89.154 Pressure ulcer of sacral region, stage 4; E87.21 Acute metabolic acidosis; M86.651 Other chronic osteomyelitis, right thigh; M46.28 Osteomyelitis of vertebra, sacral and sacrococcygeal region; E11.42 Type 2 diabetes mellitus with diabetic polyneuropathy; Y90.6 Blood alcohol level of 120-199 mg/100 ml; E87.6 Hypokalemia; E11.51 Type 2 diabetes mellitus with diabetic peripheral angiopathy without gangrene; E83.42 Hypomagnesemia; F31.9 Bipolar disorder, unspecified; F19.90 Other psychoactive substance use, unspecified, uncomplicated; F43.10 Post-traumatic stress disorder, unspecified; I10 Essential (primary) hypertension; K74.60 Unspecified cirrhosis of liver; Z89.511 Acquired absence of right leg below knee; Z99.3 Dependence on wheelchair; Z79.84 Long term (current) use of oral hypoglycemic drugs; Z79.899 Other long term (current) drug therapy
CPT/HCPCS: 36415; 71260; 73564; 73630; 74177; 80048; 80053; 80307; 81003; 82010; 82947; 83605; 83735; 83880; 84132; 84484; 85025; 85027; 85652; 86140; 87040; 93005; 99285; J1171; J1650; J1808; J2020; J2405; J2543; J2560; J3360; J3370; J3475; J3480; J7120; Q9967; S9485

== ENCOUNTER → 2025-02-12 11:44 | Outpatient (BNV) | payer MEDICARE, MEDICAID, SELFPAY | PROVIDERS: Admitting Provider Internal Medicine; Emergency Provider Emergency Medicine; Visit Provider Internal Medicine | DX: R00.0 Tachycardia, unspecified (principal) | CPT/HCPCS: 93010 ==

== ENCOUNTER → 2025-02-12 11:56 | Outpatient (BNV) | payer MEDICARE, MEDICAID, SELFPAY | PROVIDERS: Emergency Provider Emergency Medicine; Visit Provider Radiology Diagnostic Radiology | DX: L89.159 Pressure ulcer of sacral region, unspecified stage (principal); J98.11 Atelectasis; M85.80 Other specified disorders of bone density and structure, unspecified site; M15.4 Erosive (osteo)arthritis | CPT/HCPCS: 71260; 73564; 73630; 74177 ==

== ENCOUNTER → 2025-02-12 17:45 | Outpatient (BNV) | payer MEDICARE, MEDICAID, SELFPAY | PROVIDERS: Admitting Provider Internal Medicine; Emergency Provider Emergency Medicine; Visit Provider Student in an Organized Health Care Education/Training Program | DX: F31.9 Bipolar disorder, unspecified (principal); F43.10 Post-traumatic stress disorder, unspecified | CPT/HCPCS: 99231; 99232; 99239 ==

== ENCOUNTER → 2025-02-12 17:45 | Outpatient (BNV) | payer MEDICARE, MEDICAID, SELFPAY | PROVIDERS: Admitting Provider Internal Medicine; Emergency Provider Emergency Medicine; Visit Provider Nurse Practitioner Psychiatric/Mental Health | DX: F31.4 Bipolar disorder, current episode depressed, severe, without psychotic features (principal); F43.11 Post-traumatic stress disorder, acute | CPT/HCPCS: 99232 ==

== ENCOUNTER 2025-02-17 22:44 | Inpatient (IN) | payer MEDICARE, MEDICAID, SELFPAY ==
[2025-02-17 22:50] VITALS: BP 139/98; BP 152/100; PULSE 117; PULSE 127; RESP 22; TEMP 36.9; O2SAT 93; O2SAT 97; BMI 33.0
[2025-02-17 23:10] LABS: Glucose, Whole Blood 123 mg/dL (60-115)
--- NOTE | 2025-02-17 23:33 | ED.GENADULT ---
HPI - General Adult General Chief complaint: ETOH/Substance Use Stated complaint: etoh, depression from loss of father, soiled self Time Seen by Provider: 02/17/25 23:20 Source: patient Limitations: other (Intoxication) History of Present Illness ED Provider: Libia Coon PA-C HPI narrative: 40-year-old male with hx of Guillian Yuma syndrome wheelchair-bound, peripheral vascular disease status post right BKA, peripheral neuropathy, sacral decubitus ulcer, type 2 wzk-mvpejaa-theeyxkrs diabetes mellitus, hypertension, alcohol use disorder, prior AKA and ETOH withdrawal, mood disorder with history of SI, right hip osteoarthritis status post replacement presents intoxicated. Patient's landlord found him intoxicated in his home, he was covered in feces. EMS was called to the home for support. Related Data Home Medications ?Medication ?Instructions ?Recorded ?Confirmed atorvastatin 40 mg tablet 40 mg PO DAILY 02/02/25 02/12/25 escitalopram oxalate 10 mg tablet 10 mg PO DAILY 02/02/25 02/12/25 glipizide 5 mg tablet 5 mg PO DAILY 02/02/25 02/12/25 lisinopril 5 mg tablet 5 mg PO DAILY 02/02/25 02/12/25 morphine 15 mg immediate release 15 mg PO Q8H PRN pain 02/02/25 02/12/25 tablet pregabalin 225 mg capsule 225 mg PO BID 02/02/25 02/12/25 quetiapine 300 mg tablet 300 mg PO BEDTIME 02/02/25 02/12/25 Previous Rx's ?Medication ?Instructions ?Recorded oxycodone 5 mg capsule 5 mg PO Q6H PRN pain #14 caps 02/15/25 vancomycin 125 mg capsule 125 mg PO Q6H #16 caps 02/15/25 Allergies Allergy/AdvReac Type Severity Reaction Status Date / Time baclofen Allergy Hives Verified 02/17/25 22:50 escitalopram (From Lexapro) Allergy Vomiting Verified 02/17/25 22:50 lithium Allergy Unresponsiv Verified 02/17/25 22:50 e metformin Allergy Unknown Verified 02/17/25 22:50 morphine Allergy Hives Verified 02/17/25 22:50 sulfamethoxazole (From Allergy Hives Verified 02/17/25 22:50 Bactrim) trimethoprim (From Bactrim) Allergy Hives Verified 02/17/25 22:50 Review of Systems Review of Systems: Unable to obtain secondary to intoxication Yes all other systems are reviewed and are negative REPLACED BY [facility] Past Medical History Attestation statement: The following information was validated with the patient. Medical History (Updated 02/18/25 @ 04:17 by OLVIN Rivas) Osteomyelitis of foot Decubitus ulcer Amputation of one or more toes Aftercare following right hip joint replacement surgery Bipolar disorder PTSD (post-traumatic stress disorder) Sacral decubitus ulcer Peripheral neuropathy Non-insulin dependent type 2 diabetes mellitus Guillain-Yuma Surgical History (Updated 02/14/25 @ 00:02 by Kanu Rodriguez) Hx of laminectomy History of total hip replacement Hx of right BKA Social History Social History Household Members: None Housing: Homeless Do you presently have visiting nurse or other home services: No Alcohol intake: current Alcohol intake frequency: 3 or more drinks per day Alcohol type: hard liquor Comment: stand pivot to luz marina avila Patient Tobacco Use Status: Current everyday Tobacco user Tobacco use type: Cigarette Cigarette Packs Per Day: 1 Cigarettes Per Day: 20.0 Years Smoked: 29 years Smoked in Last 30 Days: Yes Second Hand Smoke Exposure: No Use of substances other than those prescribed or required for medical reasons: No Advance Directives: No Advance Directives Information Provided: Yes Do you have a plan to hurt others: No Plan service: No Physical Exam ED Vital Signs: Vital Signs - 24 hr 02/17/25 22:50 02/18/25 02:15 Temperature 98.4 F 98.0 F Pulse Rate 117 H 117 H Respiratory Rate 22 H 12 Blood Pressure 139/98 H 153/95 H Pulse Oximetry 93 98 Oxygen Delivery Method Room Air Room Air BMI result Body Mass Index 33.0 Const Other: Awake Orientation/consciousness: patient oriented x3 HENMT Other: Alcohol halitosis Resp Effort & Inspection: normal respiratory effort Cardio Other: Normal peripheral perfusion Skin Other: Warm dry no rash, presents covered in feces Neuro General: patient oriented x3, gait normal, no focal motor deficits and CN's II-XI intact bilaterally Psych Other: Intoxicated Course Reevaluation(s) Reevaluation #1: I was discussing admission of the patient for suspect AKA, the hospitalist does not feel he requires admission at this time, unless his clinical picture worsens...some of the lab findings are chronic... His urinalysis resulted shortly after my conversation with Dr. Villasenor, he technically is not passing ketones in his urine, this is not absolute, he could still be an alcoholic ketoacidosis, I will be adding on a beta hydroxy. Dr. Villasenor had recommended adding a lactic acid and a VBG, repeating chemistries after fluids, and see where he is at. I am placing another ultrasound-guided IV at this time. Time: 02:15 Reevaluation #2: lactic elevated at 6.6......... At 2:20 a.m. on February 18, This is has become a sepsis focused exam due to the lactic acidosis., I do not believe this is consistent with sepsis, the patient has known cirrhosis, his lactic acid is chronically elevated. We will be ordering ideal body weight IV fluid resuscitation, blood cultures, giving ceftriaxone. Time: 02:28 Reevaluation #3: We will be repeating the chemistries with the repeat lactic acid at the 2 hour estella, 432 am..... Additional Reevaluation(s): Dr. Villasenor is accepting the patient for admission Medications Administered Generic Name Dose Route Start Last Admin Trade Name Freq PRN Reason Stop Dose Admin Dextrose/Sodium Chloride 1,000 mls @ 125 mls/hr 02/18/25 02:00 02/18/25 02:07 D5ns IVCONT 125 mls/hr .Q8H CHERISE Administration Discontinued Medications Generic Name Dose Route Start Last Admin Trade Name Freq PRN Reason Stop Dose Admin Ceftriaxone Sodium 2 gm 02/18/25 03:10 02/18/25 03:49 Ceftriaxone Sodium 2 Gm Vial IVPUSH 02/18/25 03:11 2 gm ONCE ONE Administration Thiamine HCl 100 mg/ Sodium 101 mls @ 202 mls/hr 02/18/25 02:16 02/18/25 03:46 Chloride IV 02/18/25 02:45 Infused ONCE ONE Infusion Sodium Chloride 2,466 mls @ 2,466 mls/hr 02/18/25 03:05 02/18/25 03:39 Ns IV 02/18/25 04:04 2,466 mls/hr .Q1H STA Administration Oxycodone HCl 5 mg 02/18/25 02:12 02/18/25 03:14 Oxycodone Hcl Immed Release 5 Mg Tablet PO 02/18/25 02:13 5 mg ONCE ONE Administration Procedures Procedure Narrative Procedure Narrative: Ultrasound-guided IV 20 gauge 1.16 in IV placed in right upper extremity. Adequate blood return, flushes well secured with Tegaderm Additional ultrasound guided IV placed. 18 gauge 1-3/4 inch IV placed in another site in the right upper extremity, adequate blood return, flushes well secured with Tegaderm. Medical Decision Making Medical Decision Making [facility] Narrative: 40-year-old male with hx of Guillian Yuma syndrome wheelchair-bound, peripheral vascular disease status post right BKA, peripheral neuropathy, sacral decubitus ulcer, type 2 gzk-yixszgf-dwiktnnir diabetes mellitus, hypertension, alcohol use disorder, prior AKA and ETOH withdrawal, mood disorder with history of SI, right hip osteoarthritis status post replacement presents intoxicated. Patient's landlord found him intoxicated in his home, he was covered in feces. EMS was called to the home for support. Problem: Psychiatric illness, alcohol use disorder History: Per patient which is limited I have considered the following differential diagnoses: Alcohol/drug intoxication Plan: We will be screening basic labs drug screen and serum ethanol. We will monitor the patient until he is clinically sober. I have independently reviewed the following tests: Labs: No leukocytosis, not anemic, no electrolyte abnormalities, alcohol 351, U tox positive for oxycodone, barbiturate, I am concerned for AKA, the patient has a gap 23, bicarb is 18, his ethanol 351, we will be starting D5 normal saline, adding a urinalysis to screened for ketones. Additional labs: 1st lactic 6.6, no abnormality noted with blood gas [facility], Lab Data 02/18/25 00:35 02/18/25 00:35 Labs: Lab Results 02/17/25 02/18/25 02/18/25 Range/Units 23:06 00:10 00:35 WBC 9.8 (4.8-10.8) X10*3/uL RBC 4.90 D (4.60-5.80) X10*6/uL Hgb 14.7 D (14.0-18.0) g/dl Hct 42.1 D (42.0-52.0) % MCV 85.9 (80.0-98.0) fL MCH 30.0 (27.0-33.0) pg MCHC 34.9 (31.0-36.0) g/dl RDW 17.3 H (11.0-16.0) % Plt Count 279 D (160-400) X10*3/uL MPV 11.0 (9.4-12.4) fL Immature Gran % (Auto) 0.5 H (0.0-0.4) % Neut % (Auto) 68.9 (45-73) % Lymph % (Auto) 25.3 (20-40) % Dawes % (Auto) 4.4 (2-11) % Eos % (Auto) 0.6 (0-4) % Baso % (Auto) 0.3 (0-2) % Lymph # (Auto) 2.5 (1.2-4.9) X10*3/uL Dawes # (Auto) 0.4 (0.1-1.2) X10*3/uL Eos # (Auto) 0.1 (0.0-0.4) X10*3/uL Baso # (Auto) 0.0 (0.0-0.2) X10*3/uL Abs Immat Gran (auto) 0.05 H (0.00-0.03) X10*3/uL Absolute Neuts (auto) 6.7 (2.0-8.3) x10*3/uL Absolute Nucleated RBC 0.000 (0.0-0.012) X10*3/uL Nucleated RBC % (auto) 0.0 (0.0-0.2) /100WBC VBG pH (7.32-7.43) VBG pCO2 mmHg VBG pO2 mmHg VBG HCO3 (22-26) mmol/L VBG O2 Saturation % VBG Base Excess mmol/L Sodium 143 (135-145) mmol/L Potassium 3.7 (3.3-5.1) mmol/L Chloride 106 (96-108) mmol/L Carbon Dioxide 18 L (22-29) mmol/L Anion Gap 23 H (12-20) BUN 11 (9-16) mg/dL Creatinine 0.60 (0.5-1.4) mg/dL Estim Creat Clear Calc 217.7 Estimated GFR > 60 POC Glucose 123 H (60-115) mg/dL Random Glucose 137 H (60-115) mg/dL Lactic Acid (0.5-2.0) mmol/L Calcium 8.3 L (8.4-10.2) mg/dL Magnesium 2.1 (1.6-2.6) mg/dL Total Bilirubin 0.6 (0.0-1.0) mg/dL AST 91 H (5-37) U/L ALT 78 H (0-40) U/L Alkaline Phosphatase 126 H (39-117) U/L Total Protein 7.1 (6.5-8.0) g/dL Albumin 4.2 (3.5-5.0) g/dL Lipase 26 (8-78) U/L Beta-Hydroxybutyrate 0.08 (0.02-0.27) mmol/L Urine Color Yellow Urine Appearance Clear Urine pH 5.5 (5.0-9.0) Ur Specific [place] 1.010 (1.005-1.025) Urine Protein Trace (Neg-Trace) mg/dL Urine Glucose (UA) Negative (Negative) mg/dL Urine Ketones Negative (Negative) mg/dL Urine Blood Negative (Negative) Urine Nitrite Negative (Negative) Ur Leukocyte Esterase Negative (Negative) Urine Opiates Screen Not Detected (Not Detect) Ur Buprenorphine Scrn Not Detected (Not Detect) ng/mL Ur Oxycodone Screen Positive H (Not Detect) ng/mL Urine Methadone Screen Not Detected (Not Detect) ng/mL Urine Fentanyl Screen Not Detected (Not Detect) Ur Barbiturates Screen POSITIVE H (Not Detect) Ur Phencyclidine Scrn Not Detected (Not Detect) Ur Amphetamines Screen Not Detected (Not Detect) U Benzodiazepines Scrn Not Detected (Not Detect) Urine Cocaine Screen Not Detected (Not Detect) U Marijuana (THC) Screen Not Detected (Not Detect) Ethyl Alcohol 351 H* mg/dL 02/18/25 02/18/25 Range/Units 02:28 03:49 WBC (4.8-10.8) X10*3/uL RBC (4.60-5.80) X10*6/uL Hgb (14.0-18.0) g/dl Hct (42.0-52.0) % MCV (80.0-98.0) fL MCH (27.0-33.0) pg MCHC (31.0-36.0) g/dl RDW (11.0-16.0) % Plt Count (160-400) X10*3/uL MPV (9.4-12.4) fL Immature Gran % (Auto) (0.0-0.4) % Neut % (Auto) (45-73) % Lymph % (Auto) (20-40) % Dawes % (Auto) (2-11) % Eos % (Auto) (0-4) % Baso % (Auto) (0-2) % Lymph # (Auto) (1.2-4.9) X10*3/uL Dawes # (Auto) (0.1-1.2) X10*3/uL Eos # (Auto) (0.0-0.4) X10*3/uL Baso # (Auto) (0.0-0.2) X10*3/uL Abs Immat Gran (auto) (0.00-0.03) X10*3/uL Absolute Neuts (auto) (2.0-8.3) x10*3/uL Absolute Nucleated RBC (0.0-0.012) X10*3/uL Nucleated RBC % (auto) (0.0-0.2) /100WBC VBG pH 7.42 (7.32-7.43) VBG pCO2 38 mmHg VBG pO2 46 mmHg VBG HCO3 25 (22-26) mmol/L VBG O2 Saturation 59.0 % VBG Base Excess 1.2 mmol/L Sodium (135-145) mmol/L Potassium (3.3-5.1) mmol/L Chloride (96-108) mmol/L Carbon Dioxide (22-29) mmol/L Anion Gap (12-20) BUN (9-16) mg/dL Creatinine (0.5-1.4) mg/dL Estim Creat Clear Calc Estimated GFR POC Glucose (60-115) mg/dL Random Glucose (60-115) mg/dL Lactic Acid 6.6 H* (0.5-2.0) mmol/L Calcium (8.4-10.2) mg/dL Magnesium (1.6-2.6) mg/dL Total Bilirubin (0.0-1.0) mg/dL AST (5-37) U/L ALT (0-40) U/L Alkaline Phosphatase (39-117) U/L Total Protein (6.5-8.0) g/dL Albumin (3.5-5.0) g/dL Lipase (8-78) U/L Beta-Hydroxybutyrate (0.02-0.27) mmol/L Urine Color Urine Appearance Urine pH (5.0-9.0) Ur Specific [place] (1.005-1.025) Urine Protein (Neg-Trace) mg/dL Urine Glucose (UA) (Negative) mg/dL Urine Ketones (Negative) mg/dL Urine Blood (Negative) Urine Nitrite (Negative) Ur Leukocyte Esterase (Negative) Urine Opiates Screen (Not Detect) Ur Buprenorphine Scrn (Not Detect) ng/mL Ur Oxycodone Screen (Not Detect) ng/mL Urine Methadone Screen (Not Detect) ng/mL Urine Fentanyl Screen (Not Detect) Ur Barbiturates Screen (Not Detect) Ur Phencyclidine Scrn (Not Detect) Ur Amphetamines Screen (Not Detect) U Benzodiazepines Scrn (Not Detect) Urine Cocaine Screen (Not Detect) U Marijuana (THC) Screen (Not Detect) Ethyl Alcohol mg/dL Critical Care Time Critical Care Time Critical Care Time: Yes Total Critical Care Time: 30 Attestation: I Libia Coon PA-C have personally performed 30 minutes of critical care time not including lines and procedures; potential sepsis, lactic acidosis, alcoholic ketoacidosis Discharge Plan Discharge Clinical Impression: Alcohol intoxication, Acidosis, lactic Patient Disposition: Admitted As Inpatient Print Language: South African
[2025-02-18] VITALS (10 sets, daily range): BP systolic 136–162; BP diastolic 80–99; PULSE 85–120; RESP 11–18; TEMP 36.2–36.8; O2SAT 94–99; BMI 34.7; BMI 35.1
--- NOTE | 2025-02-18 | ECG_ITS ---
Test Reason : TACHY Blood Pressure : */* mmHG Vent. Rate : 109 BPM Atrial Rate : 109 BPM P-R Int : 144 ms QRS Dur : 82 ms QT Int : 362 ms P-R-T Axes : 50 -20 11 degrees QTcB Int : 487 ms Sinus tachycardia Possible Anterior infarct (cited on or before 02-Nov-2020) Abnormal ECG When compared with ECG of 12-Feb-2025 11:39, Questionable change in initial forces of Anterior leads Referred By: Generic ED Physician Electronically Signed By: ROMIE MORA
--- NOTE | 2025-02-18 00:03 | PC.NURSE ---
Pt brought in from home via EMS. Per EMS, pt is covered with stool and his apartment was as well. Pt states he last took a shower maybe two weeks ago. Pt noted to be covered in stool and ED techs washed patient. Pt noted to have stage 2 on buttocks. Pt states that he has not been able to care for himself after his father in December of this year. Pt states he drank some vodka and has been drinking every day and he drank prior to coming into ED.
[2025-02-18 00:31] LABS: Cannabinoid Screen Urine Not Detected (Not Detect)
[2025-02-18 00:41] LABS: MANUAL DIFF FLAG NO
[2025-02-18 00:46] LABS: Hematocrit 42.1 % (42.0-52.0); Hemoglobin 14.7 g/dl (14.0-18.0); Imm Gran Abs Auto 0.05 X10*3/uL (0.00-0.03); Imm Gran Pct Auto 0.5 % (0.0-0.4); Lymphocytes Absolute Auto 2.5 X10*3/uL (1.2-4.9); Mean Corpuscular HGB Conc 34.9 g/dl (31.0-36.0); Mean Corpuscular Hemoglobin 30.0 pg (27.0-33.0); Mean Corpuscular Volume 85.9 fL (80.0-98.0); NRBC Abs Auto 0.000 X10*3/uL (0.0-0.012); NRBC Pct Auto 0.0 /100WBC (0.0-0.2); Platelet Count 279 X10*3/uL (160-400); Red Blood Count 4.90 X10*6/uL (4.60-5.80); White Blood Count 9.8 X10*3/uL (4.8-10.8)
[2025-02-18 01:16] LABS: Alanine Aminotransferase 78 U/L (0-40); Albumin Level 4.2 g/dL (3.5-5.0); Alkaline Phosphatase 126 U/L (39-117); Anion Gap 23 (12-20); Aspartate Amino Transferase 91 U/L (5-37); Blood Urea Nitrogen 11 mg/dL (9-16); Calcium 8.3 mg/dL (8.4-10.2); Carbon Dioxide 18 mmol/L (22-29); Chloride 106 mmol/L (96-108); Creatinine Clr Calc Pharmacy 217.7; Estimated Glomerular Filt Rate > 60; Lipase 26 U/L (8-78); Magnesium 2.1 mg/dL (1.6-2.6); Potassium 3.7 mmol/L (3.3-5.1); Sodium 143 mmol/L (135-145); Total Protein 7.1 g/dL (6.5-8.0)
[2025-02-18 01:56] LABS: Appearance Urine Clear; Glucose Urine UA Negative (Negative); PH 5.5 (5.0-9.0); Specific Gravity - Urine 1.010 (1.005-1.025)
[2025-02-18] MEDS: oxyCODONE HCl Immed Release 5 MG TABLET PO ×3 (03:14→20:36)
[2025-02-18] MEDS: Thiamine HCL 100 MG in 0.9 % Sodium Chloride 100 ML 202 MG IV (03:16)
[2025-02-18] MEDS: 0.9 % Sodium Chloride 2,466 ML 2466 ML IV (03:39)
[2025-02-18 03:51] LABS: Venous Blood Gas Refer to POC result
[2025-02-18 03:53] LABS: VBG HCO3 25 mmol/L (22-26); VBG O2 % Saturation 59.0 %
[2025-02-18 04:32] LABS: Reflex Lactate? Lactic Acid Added
--- NOTE | 2025-02-18 05:09 | P.HPHOSP_ITS ---
History of Present Illness Date of Service: 02/18/25 Attending physician on admission: Pita Melgar Chief Complaint: ETOH abuse Patient is a 40-year-old male currently living alone and disabled/wheelchair-bound with history of right [id number] amputation secondary to diabetes, current NIDDM, PVD, chronic sacral wound with OM, CDIFF 12/2024, peripheral neuropathy, bipolar depression, PTSD, alcohol abuse, liver cirrhosis, tobacco dependence, right hip OA, obesity, and Guillian-Colmesneil syndrome, left adrenal mass, presents to ED via EMS after landlord called 911 after finding pt intoxicated and covered in Feces. The odor of alcohol is noted during admission interview. Pt is alert and orientated, no slurred speech and pt is able to protect airway. Patient states there are recent issues with patient's landlord and his spouse and he was having an argument with his landlord which led to increased consumption of alcohol since his return from the hospital February 15 (admitted for alcohol withdrawal February 12- ). Patient drank over 2 L of vodka over the last 48 hours. Patient obtains his alcohol via [employer]. Patient denies history of pancreatitis. Lipase 26. Patient states landlord's spouse ?hates me . Patient also states he lost his father December of 2024. Patient continues to grieve the loss of his father and is not coping well. Patient denies any SI or HI currently. Patient does have a therapist in the home setting but she is currently on vacation. Patient currently reporting tremors but is able to tolerate applesauce and fluid intake without any nausea or vomiting. Patient is unsure if he has a history of seizures related alcohol withdrawal. Patient is familiar with phenobarbital and is requesting phenobarbital for withdrawal. Patient has been requesting pain meds for sacral wound. Patient currently denies any chest pain, shortness of breath at rest, abdominal pain, nausea, vomiting, diarrhea, fever or chills. Pt denies any lower back pain. Pt states his father would do the wound care and he currently has no in house care to monitor wound since December 2024. Patient has evidence of an anion gap metabolic acidosis with normal renal function. Patient has no leukocytosis, platelets are normal, lactic acid 6.6 repeat pending. Liver enzymes mildly elevated. Magnesium 2.1. UA negative for any infection or ketones. VBG 7.42, 38, 46, 25. Alcohol level on admission 351. Tox screen positive for oxycodone and barbiturates.. Patient does use tobacco 1 pack per day but denies marijuana use or illicit drug use. There may be concern that patient's apartment is unhealthy in terms of its cleanliness and environment per pt. Pt admits to serious self-care deficits and is not coping well overall. 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 Recent admission history includes: February 02 through February 06 - infection left phalanx, alcohol withdrawal and patient was discharged on p.o. linezolid. Pt states he completed the linezolid. Patient had requested amputation of the affected left 3rd toe but was seen by General surgery and surgery was not indicated and requested vascular consultation. Vascular indicated the same continue conservative treatment. February 12 through February 15 - alcohol withdrawal, acute lactic acidosis and liver disease. Patient was instructed to call wound care clinic to make his 1st appointment and patient did not make the call. Currently patient has no in-home care of any kind. Review of Systems 2 Review of Systems: Patient currently denies any chest pain or shortness of breath at rest. Patient is reporting mild sacral pain. Patient denies any new open wounds. Patient denies any nausea, vomiting or abdominal pain. Yes all other systems are reviewed and are negative [facility] Medical History Osteomyelitis of foot Decubitus ulcer Amputation of one or more toes Aftercare following right hip joint replacement surgery Bipolar disorder PTSD (post-traumatic stress disorder) Sacral decubitus ulcer Peripheral neuropathy Non-insulin dependent type 2 diabetes mellitus Guillain-Colmesneil Cognitive capacity: Alert and orientated x3 Functional capacity: wheelchair bound Pertinent family history: Patient reports mother and father both with a history of cocaine abuse Surgical History Hx of laminectomy History of total hip replacement Hx of right BKA Social History Household Members: None Housing: Homeless Do you presently have visiting nurse or other home services: No Alcohol intake: current Alcohol intake frequency: 3 or more drinks per day Alcohol type: hard liquor Comment: stand pivot to luz marina avila Patient Tobacco Use Status: Current everyday Tobacco user Tobacco use type: Cigarette Cigarette Packs Per Day: 1 Cigarettes Per Day: 20.0 Years Smoked: 29 years Smoked in Last 30 Days: Yes Second Hand Smoke Exposure: No Use of substances other than those prescribed or required for medical reasons: No Advance Directives: No Advance Directives Information Provided: Yes Do you have a plan to hurt others: No Plan service: No Ebola Risk: Travel/Contact With Anyone From Affected Area/s: No Has Patient Experienced Ebola Symptoms: No Meds Allergies Allergy/AdvReac Type Severity Reaction Status Date / Time baclofen Allergy Hives Verified 02/17/25 22:50 escitalopram (From Lexapro) Allergy Vomiting Verified 02/17/25 22:50 lithium Allergy Unresponsiv Verified 02/17/25 22:50 e metformin Allergy Unknown Verified 02/17/25 22:50 morphine Allergy Hives Verified 02/17/25 22:50 sulfamethoxazole (From Allergy Hives Verified 02/17/25 22:50 Bactrim) trimethoprim (From Bactrim) Allergy Hives Verified 02/17/25 22:50 Active Medications: Current Medications Acetaminophen (Acetaminophen 325 Mg Tablet) 650 mg PO Q6H PRN PRN Reason: Pain, Mild 1-3,fever,headache Albuterol/Ipratropium (Albuterol/Iprat 2.5/0.5mg 3 Ml Ampul.Neb) 3 ml INHALE Q4H PRN PRN Reason: Shortness of Breath/Wheezing Calcium Carbonate (Calcium Carbonate 750 Mg Tab.Chew) 750 mg PO Q4H PRN PRN Reason: Heartburn Enoxaparin Sodium (Enoxaparin Sodium 40 Mg/0.4 Ml Syringe) 40 mg SUBCUT Q24H [facility] Folic Acid (Folic Acid 1 Mg Tablet) 1 mg PO DAILY CHERISE Stop: 02/21/25 08:59 Dextrose/Sodium Chloride (D5ns) 1,000 mls @ 125 mls/hr IVCONT .Q8H CHERISE Last Admin: 02/18/25 02:07 Dose: 125 mls/hr Magnesium Hydroxide (Milk Of Magnesia 30 Ml Oral.Susp) 30 ml PO DAILY PRN PRN Reason: Constipation Melatonin (Melatonin 3 Mg Tablet) 6 mg PO BEDTIME PRN PRN Reason: Insomnia Metoprolol Tartrate (Metoprolol Tartrate 25 Mg Tablet) 25 mg PO Q6H PRN; Protocol PRN Reason: Alcohol Withdrawal Nicotine (Nicotine 21 Mg Patch.Td24) 21 mg TRANSDERMA DAILY CHERISE Omeprazole (Omeprazole 20 Mg Capsule.Dr) 20 mg PO DAILY@0630 [facility] Ondansetron HCl (Ondansetron Hcl 4 Mg/2 Ml Vial) 4 mg IVPUSH Q8H PRN PRN Reason: Nausea and Vomiting Pharmacy Consult (Consult Rx Etoh Phenob Im/Po) 1 each MISCELLANE ONCE CHERISE; Protocol Polyethylene Glycol (Polyethylene Glycol 3350 17 Gm Powd.Pack) 17 gm PO DAILY PRN PRN Reason: Constipation Senna (Sennosides 8.6 Mg Tablet) 17.2 mg PO BEDTIME CHERISE Sodium Chloride (0.9 % Sodium Chloride Flush 3 Ml Syringe) 3 ml IVFLUSH QSHIFT [facility] Thiamine HCl (Thiamine Hcl 100 Mg Tablet) 100 mg PO DAILY [facility] Stop: 02/21/25 08:59 Home Medications ?Medication ?Instructions ?Recorded ?Confirmed ?Last Taken ?Type atorvastatin 40 mg tablet 40 mg PO DAILY 02/02/25/11/1402/12/25 History escitalopram oxalate 10 mg tablet 10 mg PO DAILY 02/0202/12/25 02/12/25 History glipizide 5 mg tablet 5 mg PO DAILY 02/02/2502/1202/12/25 History lisinopril 5 mg tablet 5 mg PO DAILY 02/02/2502/1202/12/25 History morphine 15 mg immediate release 15 mg PO Q8H PRN pain 02/02/25 02/12/25 Unknown History tablet pregabalin 225 mg capsule 225 mg PO BID 02/02/2502/1202/12/25 History quetiapine 300 mg tablet 300 mg PO BEDTIME 02/02/25 0 02/12/25 02/11/25 History Physical Exam 2 Vital Signs and Narrative: Vital Signs: Last Vital Signs Temp 98.0 F 02/18/25 02:15 Pulse 117 H 02/18/25 02:15 Resp 12 02/18/25 02:15 BP 153/95 H 02/18/25 02:15 Pulse Ox 98 02/18/25 02:15 O2 Del Method Room Air 02/18/25 02:15 BMI result Body Mass Index 33.0 Alert and orientated X3, able to give good history. Mild odor of alcohol noted when pt spoke, speech clear, pt able to protect airway Neuro: CN II-X11 intact, no deficits, visual acuity intact, mild tremor in hands EYES: PERRLA, EOM intact, sclera nonicteric ENT: hearing intact, no issues with swallowing, uvula midline, lips moist, nares patent no epistaxis Cardiac: S1 S2 tachy 110, no murmur, no JVD, no edema in Lower ext Pulmonary: lungs clear to auscultation B Abdominal: BS active in all 4 quadrants, no guarding, tenderness, rebounding MSK: strength 5/5 upper and L lower extremities BKA R : no CVA tenderness no bladder distension Extremities: no edema in lower extremities, PT and DP pulses palpable +2 Psych: mood stable, judgement and insight fair Skin: large sacral decubitus with scarring, small blisters not currently draining along the edges. R BKA stub pink in color, no warmth or redness appreciated, no drainage or open areas noted scabs present on left 3rd and 4th digits Results Labs 02/18/25 00:35 02/18/25 00:35 Labs: Laboratory Results - last 24 hr 02/17/25 02/18/25 02/18/25 23:06 00:10 00:35 MCV 85.9 MCH 30.0 MCHC 34.9 RDW 17.3 H Plt Count 279 D MPV 11.0 Immature Gran % (Auto) 0.5 H Neut % (Auto) 68.9 Lymph % (Auto) 25.3 Rogers % (Auto) 4.4 Eos % (Auto) 0.6 Baso % (Auto) 0.3 Lymph # (Auto) 2.5 Rogers # (Auto) 0.4 Eos # (Auto) 0.1 Baso # (Auto) 0.0 Abs Immat Gran (auto) 0.05 H Absolute Neuts (auto) 6.7 Absolute Nucleated RBC 0.000 Nucleated RBC % (auto) 0.0 VBG pH VBG pCO2 VBG pO2 VBG HCO3 VBG O2 Saturation VBG Base Excess Anion Gap 23 H Estim Creat Clear Calc 217.7 Estimated GFR > 60 POC Glucose 123 H Random Glucose 137 H Lactic Acid Calcium 8.3 L Magnesium 2.1 Total Bilirubin 0.6 AST 91 H ALT 78 H Alkaline Phosphatase 126 H Total Protein 7.1 Albumin 4.2 Lipase 26 Beta-Hydroxybutyrate 0.08 Urine Color Yellow Urine Appearance Clear Urine pH 5.5 Ur Specific [place] 1.010 Urine Protein Trace Urine Glucose (UA) Negative Urine Ketones Negative Urine Blood Negative Urine Nitrite Negative Ur Leukocyte Esterase Negative Urine Opiates Screen Not Detected Ur Buprenorphine Scrn Not Detected Ur Oxycodone Screen Positive H Urine Methadone Screen Not Detected Urine Fentanyl Screen Not Detected Ur Barbiturates Screen POSITIVE H Ur Phencyclidine Scrn Not Detected Ur Amphetamines Screen Not Detected U Benzodiazepines Scrn Not Detected Urine Cocaine Screen Not Detected U Marijuana (THC) Screen Not Detected Ethyl Alcohol 351 H* 02/18/25 02/18/25 02:28 03:49 MCV MCH MCHC RDW Plt Count MPV Immature Gran % (Auto) Neut % (Auto) Lymph % (Auto) Rogers % (Auto) Eos % (Auto) Baso % (Auto) Lymph # (Auto) Rogers # (Auto) Eos # (Auto) Baso # (Auto) Abs Immat Gran (auto) Absolute Neuts (auto) Absolute Nucleated RBC Nucleated RBC % (auto) VBG pH 7.42 VBG pCO2 38 VBG pO2 46 VBG HCO3 25 VBG O2 Saturation 59.0 VBG Base Excess 1.2 Anion Gap Estim Creat Clear Calc Estimated GFR POC Glucose Random Glucose Lactic Acid 6.6 H* Calcium Magnesium Total Bilirubin AST ALT Alkaline Phosphatase Total Protein Albumin Lipase Beta-Hydroxybutyrate Urine Color Urine Appearance Urine pH Ur Specific [place] Urine Protein Urine Glucose (UA) Urine Ketones Urine Blood Urine Nitrite Ur Leukocyte Esterase Urine Opiates Screen Ur Buprenorphine Scrn Ur Oxycodone Screen Urine Methadone Screen Urine Fentanyl Screen Ur Barbiturates Screen Ur Phencyclidine Scrn Ur Amphetamines Screen U Benzodiazepines Scrn Urine Cocaine Screen U Marijuana (THC) Screen Ethyl Alcohol ECG Attestation: I personally reviewed and interpreted this ECG as follows: Prior ECG tracings: not available for review Imaging Radiologist's Impressions: none done this admission Assessment and Plan (1) Alcohol intoxication: Qualifiers: Complication of substance-induced condition: with unspecified complication Qualified Code(s): F10.929 - Alcohol use, unspecified with intoxication, unspecified Status: Acute Plan Patient is a 40-year-old male currently living alone and disabled/wheelchair-bound with history of right avunr-psw-brym amputation secondary to diabetes, current NIDDM, PVD, chronic sacral wound with OM, CDIFF 12/2024, peripheral neuropathy, bipolar depression, PTSD, alcohol abuse, liver cirrhosis, tobacco dependence, right hip OA, obesity, and Guillian-Colmesneil syndrome, left adrenal mass being admitted for alcohol withdrawal, anion gap metabolic acidosis, lactic acidosis likely secondary to alcohol intoxication. Alcohol Intoxication, Alcohol withdrawal -Phenobarbital Protocol started -CIWA ordered -Seizure precautions in place -Alcohol level 351 -Antiemetic prn, no current issues with N/V/ABD pain, diet permitted -Lipase normal no hx of pancreatitis -Thiamine and folic acid ordered -Magnesium stable -Pt has had 3 admission involving alcohol use this month - dealing with the loss of his father December 2024, self-care deficits worsening -Addictions consulted -Psychiatry consulted -Case management consulted Metabolic acidosis with anion gap -IVF D5 1/2 NS started in ED -No ketones noted in Urine -One dose of bicarb po provided -Repeat BMP 3PM Lactic Acidosis -Likely secondary to alcohol intoxication -Pt was sedentary at home X48 hours, drinking over 2 L of vodka in that time -UA neg -Pt is not hypoxic, no indication for CXR currently -IVF running, fluid bolus provided -Repeat LA 11AM NIIDM -SSI -Diabetic diet C diff 01/03/2025 -Pt denies diarrhea, is currently asymptomatic -no active infection identified Left third toe OM DX 02/03/25 -Scabs currently present -Pt did not call wound care clinic to make appt for follow-up -Pt has no care in the home to monitor wounds and provider wound care -Pt states he did complete the linezolid po -Wound care consulted -Patient is seen by General surgery and vascular 02/03/2025, no indication for amputation in both recommended conservative management -ID consulted if needed, pt was seen 02/03/2025 HTN -Hydralazine IV prn systolic > 160 -Continue lisinopril once med rec completed, renal fx stable Chronic sacral decubitus ulcer with OM -Wound care consulted -Pt did not call wound care clinic to make appt for follow-up HX of GBS -Currently wheelchair-bound due to right [id number] amputation and history of GBS -Patient denies IVIG, plasma exchange -Neurology follow up as an outpatient Bipolar Depression/ PTSD/ recent loss of his father December 2024 -Psychiatric consulted ordered, aware pt was seen previously but no overall improvement in mental health -Continue Lexapro and seroquel once med rec completed -Appreciate further recs from Psychiatry -Will check vitamin D level DVT prophylaxis: Lovenox PPI prophylaxis: Omeprazole Med rec pending Full Code status Quality Stroke Does the patient have a stroke diagnosis?: No Reason for No Anti-thrombotic by Day Two: N/A - Med Ordered VTE Prior VTE?: No VTE Risk Level:: Medical - moderate - high VTE Device Contraindication: N/A - Device Ordered VTE Drug Contraindication: N/A - Med Ordered
[2025-02-18 05:13] LABS: MANUAL DIFF FLAG NO
[2025-02-18 05:16] LABS: Hematocrit 41.5 % (42.0-52.0); Hemoglobin 13.7 g/dl (14.0-18.0); Imm Gran Abs Auto 0.05 X10*3/uL (0.00-0.03); Imm Gran Pct Auto 0.5 % (0.0-0.4); Lymphocytes Absolute Auto 2.1 X10*3/uL (1.2-4.9); Mean Corpuscular HGB Conc 33.0 g/dl (31.0-36.0); Mean Corpuscular Hemoglobin 29.8 pg (27.0-33.0); Mean Corpuscular Volume 90.4 fL (80.0-98.0); NRBC Abs Auto 0.000 X10*3/uL (0.0-0.012); NRBC Pct Auto 0.0 /100WBC (0.0-0.2); Platelet Count 218 X10*3/uL (160-400); Red Blood Count 4.59 X10*6/uL (4.60-5.80); White Blood Count 9.5 X10*3/uL (4.8-10.8)
[2025-02-18 05:32] LABS: ~Lactic Acid-LAB USE ONLY 7.1 mmol/L (0.5-2.0)
[2025-02-18 05:35] LABS: Alanine Aminotransferase 75 U/L (0-40); Albumin Level 3.9 g/dL (3.5-5.0); Alkaline Phosphatase 120 U/L (39-117); Anion Gap 22 (12-20); Aspartate Amino Transferase 88 U/L (5-37); Blood Urea Nitrogen 11 mg/dL (9-16); Calcium 8.1 mg/dL (8.4-10.2); Carbon Dioxide 18 mmol/L (22-29); Chloride 106 mmol/L (96-108); Creatinine Clr Calc Pharmacy 229.2; Estimated Glomerular Filt Rate > 60; Magnesium 1.8 mg/dL (1.6-2.6); Potassium 3.6 mmol/L (3.3-5.1); Sodium 142 mmol/L (135-145); Total Protein 6.7 g/dL (6.5-8.0)
[2025-02-18] MEDS: PHENobarbitaL sodium 130 MG/ML IM ONCE 455 MG IM (05:53)
--- NOTE | 2025-02-18 07:02 | PC.NURSE ---
Per Edith Perez, give 1L IVF bollus and then continue D5NS.
[2025-02-18 07:13] LABS: Reflex Lactate? 2 Y
[2025-02-18 07:17] LABS: Glucose, Whole Blood 106 mg/dL (60-115)
--- NOTE | 2025-02-18 07:59 | PC.NURSE ---
Pt HR noted to be 120s-130s sinus tach on desulfurizer hand- asymptomatic, BP stable. Rhythm looks different from previous EKGs done. MD Stallworth made aware. EKG ordered placed, tech to bedside for EKG. Vitals updated in worklist, pt resting comfortably on stretcher. Call sanchez within reach, all needs met at this time.
[2025-02-18 08:21] LABS: ~Lactic Acid-LAB USE ONLY 6.7 mmol/L (0.5-2.0)
--- NOTE | 2025-02-18 08:43 | PHA.MEDREC ---
Addendum entered by Bernie Tobin RPh 02/18/25 09:03: Reviewed by [facility] Original Note: Pharmacy Consult ? Medication Reconciliation Pharmacy has completed the medication reconciliation. Spoke with pt and he confirmed his medications. Pt just admitted with us 02/12-02/15 and started on Oxycodone 5mg and Vancomycin 125mg regimens, that the pt stated he started the day of Dc. Pt stated he is no longer taking the Morphine tablet due to him developing hives when taking them. Pt also not taking Trazodone anymore due to finding it not helpful now taking it and it make him feel weird when taking them. Pt taking a Melatonin gummy at home as needed for sleep but couldn't remember the dose at this time. Pt confirmed he is not taking the Atorvastatin or Lisinopril tablets anymore.
[2025-02-18] MEDS: PHENobarbitaL sodium 130 MG/ML VIAL IM Q3Hx2 390 MG IM ×2 (09:54→13:37)
[2025-02-18] MEDS: Nicotine 21 MG PATCH.TD24 TRANSDERMA (09:59)
[2025-02-18 13:30] LABS: Reflex Lactate? Lactic Acid Added
[2025-02-18 13:42] LABS: Glucose, Whole Blood 74 mg/dL (60-115)
[2025-02-18 14:35] LABS: ~Lactic Acid-LAB USE ONLY 2.2 mmol/L (0.5-2.0)
[2025-02-18 15:36] LABS: Glucose, Whole Blood 96 mg/dL (60-115)
[2025-02-18 16:00] LABS: Reflex Lactate? 2 Y
[2025-02-18 16:47] LABS: Anion Gap 15 (12-20); Blood Urea Nitrogen 8 mg/dL (9-16); Calcium 7.5 mg/dL (8.4-10.2); Carbon Dioxide 24 mmol/L (22-29); Chloride 104 mmol/L (96-108); Creatinine Clr Calc Pharmacy 226.8; Estimated Glomerular Filt Rate > 60; Potassium 3.1 mmol/L (3.3-5.1); Sodium 140 mmol/L (135-145)
[2025-02-18 20:34] LABS: Glucose, Whole Blood 115 mg/dL (60-115)
[2025-02-19 03:54] VITALS: BP 143/81; PULSE 77; RESP 16; TEMP 36.1; O2SAT 97
[2025-02-19 07:19] LABS: Glucose, Whole Blood 126 mg/dL (60-115)
[2025-02-19 07:26] VITALS: BP 145/95; PULSE 91; RESP 18; TEMP 36.1; O2SAT 98
--- NOTE | 2025-02-19 08:37 | MHC.CM.PN ---
CM met with Patient at bedside and addressed IMM with him, providing Patient with the original and a copy has been placed on the chart. Patient lives alone in a house and is w/c bound ([place]/Chronic Sacral Wound/(R) BKA). Patient has a new PCP/PA appointment with Jesus Gonzalez on 06/25/2025. Patient states that he is eager to meet with an Senior Web Engineer and is ready to deal with the ETOH. CM has initiated and will follow for dc planning. Patient will need assist with transport at time of dc.
[2025-02-19] MEDS: 0.9 % Sodium Chloride Flush 3 ML SYRINGE IVFLUSH ×3 (08:53→21:04)
[2025-02-19] MEDS: Nicotine 21 MG PATCH.TD24 TRANSDERMA (08:55)
[2025-02-19 11:30] LABS: Glucose, Whole Blood 80 mg/dL (60-115)
[2025-02-19 11:35] VITALS: BP 129/69; PULSE 74; RESP 16; TEMP 36; O2SAT 95
--- NOTE | 2025-02-19 12:31 | HO.PM.IMPN ---
Subjective Subjective Date of Service: 02/19/25 Physical Exam Vital Signs: Vital Signs: Last Vital Signs Temp 96.8 F 02/19/25 11:35 Pulse 74 02/19/25 11:35 Resp 16 02/19/25 11:35 BP 129/69 02/19/25 11:35 Pulse Ox 95 02/19/25 11:35 O2 Del Method Room Air 02/19/25 11:35 BMI result Body Mass Index 35.1 Objective Data Active Medications Acetaminophen (Acetaminophen 325 Mg Tablet) 650 mg PO Q6H PRN PRN Reason: Pain, Mild 1-3,fever,headache Last Admin: 02/19/25 08:57 Dose: 650 mg Documented By: ARIAN Albuterol/Ipratropium (Albuterol/Iprat 2.5/0.5mg 3 Ml Ampul.Neb) 3 ml INHALE Q4H PRN PRN Reason: Shortness of Breath/Wheezing Calcium Carbonate (Calcium Carbonate 750 Mg Tab.Chew) 750 mg PO Q4H PRN PRN Reason: Heartburn Dextrose (Dextrose 50 % 25 Gm/50 Ml Syringe) 25 gm IVPUSH Q15M PRN; Protocol PRN Reason: per Hypoglycemia Standing Ord. Enoxaparin Sodium (Enoxaparin Sodium 40 Mg/0.4 Ml Syringe) 40 mg SUBCUT Q24H [facility] Last Admin: 02/19/25 08:55 Dose: 40 mg Documented By: ARIAN Folic Acid (Folic Acid 1 Mg Tablet) 1 mg PO DAILY [facility] Stop: 02/21/25 08:59 Last Admin: 02/19/25 08:57 Dose: 1 mg Documented By: ARIAN Glucose (Glucose Gel 15 Gm Gel..Gram.) 15 gm PO Q15M PRN; Protocol PRN Reason: per Hypoglycemia Standing Ord. Hydralazine HCl (Hydralazine Hcl 20 Mg/Ml Vial) 10 mg IVPUSH Q6H PRN; Protocol PRN Reason: SBP > 160 Insulin Human Lispro (Insulin Lispro 100 Unit/Ml 3 Ml Vial) 0 unit SUBCUT QIDACHS [facility]; Protocol Last Admin: 02/19/25 12:23 Dose: Not Given Documented By: ARIAN Non-Admin Reason: No Insulin Coverage Magnesium Hydroxide (Milk Of Magnesia 30 Ml Oral.Susp) 30 ml PO DAILY PRN PRN Reason: Constipation Melatonin (Melatonin 3 Mg Tablet) 6 mg PO BEDTIME PRN PRN Reason: Insomnia Last Admin: 02/18/25 20:36 Dose: 6 mg Documented By: GINNY Metoprolol Tartrate (Metoprolol Tartrate 25 Mg Tablet) 25 mg PO Q6H PRN; Protocol PRN Reason: Alcohol Withdrawal Nicotine (Nicotine 21 Mg Patch.Td24) 21 mg TRANSDERMA DAILY [facility] Last Admin: 02/19/25 08:55 Dose: 21 mg Documented By: ARIAN Omeprazole (Omeprazole 20 Mg Capsule.) 20 mg PO DAILY@629 [facility] Last Admin: 02/19/25 05:33 Dose: 20 mg Documented By: GINNY Ondansetron HCl (Ondansetron Hcl 4 Mg/2 Ml Vial) 4 mg IVPUSH Q8H PRN PRN Reason: Nausea and Vomiting Oxycodone HCl (Oxycodone Hcl Immed Release 5 Mg Tablet) 7.5 mg PO Q6H PRN PRN Reason: Pain, Severe (Pain Scale 7-10) Pharmacy Consult (Consult Rx Etoh Phenob Im/Po) 1 each MISCELLANE ONCE [facility]; Protocol Phenobarbital (Phenobarbital 30 Mg Tablet) 60 mg PO BID [facility]; Protocol Stop: 02/20/25 09:01 Last Admin: 02/19/25 08:57 Dose: 60 mg Documented By: ARIAN Phenobarbital (Phenobarbital 30 Mg Tablet) 30 mg PO BID [facility]; Protocol Stop: 02/22/25 09:01 Phenobarbital (Phenobarbital 30 Mg Tablet) 30 mg PO DAILY [facility]; Protocol Stop: 02/24/25 09:01 Polyethylene Glycol (Polyethylene Glycol 3350 17 Gm Powd.Pack) 17 gm PO DAILY PRN PRN Reason: Constipation Pregabalin (Pregabalin 75 Mg Capsule) 225 mg PO BID [facility] Last Admin: 02/19/25 08:57 Dose: 225 mg Documented By: ARIAN Senna (Sennosides 8.6 Mg Tablet) 17.2 mg PO BEDTIME [facility] Last Admin: 02/18/25 20:40 Dose: Not Given Documented By: GINNY Non-Admin Reason: Patient Refused Sodium Chloride (0.9 % Sodium Chloride Flush 3 Ml Syringe) 3 ml IVFLUSH QSHIFT [facility] Last Admin: 02/19/25 08:53 Dose: 3 ml Documented By: ARIAN Thiamine HCl (Thiamine Hcl 100 Mg Tablet) 100 mg PO DAILY [facility] Stop: 02/21/25 08:59 Last Admin: 02/19/25 08:57 Dose: 100 mg Documented By: ARIAN Labs 02/18/25 05:06 02/18/25 15:53 Labs: Laboratory Results - last 24 hr 02/18/25 02/18/25 02/18/25 13:38 13:53 15:32 Hold Purple Top Anion Gap Estim Creat Clear Calc Estimated GFR POC Glucose 74 96 Random Glucose Lactic Acid F/U @ 2Hr 2.2 H* Calcium 02/18/25 02/18/25 02/19/25 15:53 20:28 06:28 Hold Purple Top SEE NOTE Anion Gap 15 Estim Creat Clear Calc 226.8 Estimated GFR > 60 POC Glucose 115 Random Glucose 90 Lactic Acid F/U @ 2Hr Calcium 7.5 L D 02/19/25 02/19/25 07:14 11:20 Hold Purple Top Anion Gap Estim Creat Clear Calc Estimated GFR POC Glucose 126 H 80 Random Glucose Lactic Acid F/U @ 2Hr Calcium Microbiology Microbiology Results: Microbiology 02/18/25 03:37 Blood Culture - Preliminary Blood - Venous No growth after 24 hours. 02/18/25 03:41 Blood Culture - Preliminary Blood - Venous No growth after 24 hours. 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 Alcohol Intoxication, Alcohol withdrawal has some anxiety Phenobarbital Protocol started Seizure precautions in place Lipase normal no hx of pancreatitis plan: Thiamine and folic acid ,Magnesium stable. 3 admission involving alcohol use this month - dealing with the loss of his father December 2024, self-care deficits worsening Addictions consulted ,Psychiatry consulted,Case management consulted Metabolic acidosis with anion gap: IVF D5 1/2 NS started in ED No ketones noted in Urine ,One dose of bicarb po provided moniter bmp acute Lactic Acidosis -Likely secondary to alcohol intoxication UA neg Pt is not hypoxic, no indication for CXR currently plan: lactic acid trending down IVF running, fluid bolus provided NIIDM: SSI,Diabetic diet C diff 01/03/2025: Pt denies diarrhea, is currently asymptomatic Left third toe OM DX 02/03/25, Scabs currently present,Pt did not call wound care clinic to make appt for follow-up no care in the home to monitor wounds and provider wound care , completed the linezolid po seen General surgery and vascular 02/03/2025, no indication for amputation in both recommended conservative management also ID seen 02/03/2025, competed linezolid as above. HTN :Continue lisinopril once med rec completed, renal fx stable sacral decubitus ulcer/chronic osteomyelitis of sacrum and coccyx/chronic osteomyelitis of right ischial tuberosity with ischial decubitus ulcer: Wound care consulted . continue to moniter if any new changes consider surgery eval ,if needed Id also.please see dc summary from 02/06 for detailed information. Bipolar Depression/ PTSD/ recent loss of his father December 2024 Psychiatric consulted ordered, aware pt was seen previously but no overall improvement in mental health Continue Lexapro and seroquel once med rec completed Appreciate further recs from Psychiatry check vitamin D level DVT prophylaxis: Lovenox PPI prophylaxis: Omeprazole ongoing need: alcohol withdrawals -need close ciwa monitering and needs phenobarbital. Quality Stroke Does the patient have a stroke diagnosis?: No Reason for No Anti-thrombotic by Day Two: N/A - Med Ordered VTE Prior VTE?: No VTE Risk Level:: Medical - moderate - high VTE Device Contraindication: N/A - Device Ordered VTE Drug Contraindication: N/A - Med Ordered
[2025-02-19] MEDS: oxyCODONE HCl Immed Release 5 MG TABLET 7.5 MG PO (14:20)
[2025-02-19 15:37] VITALS: BP 136/99; PULSE 89; RESP 18; TEMP 36.9; O2SAT 97
[2025-02-19 16:16] LABS: Glucose, Whole Blood 108 mg/dL (60-115)
--- NOTE | 2025-02-19 16:16 | HO.WOUND ---
Wound Consult: Initial 40yr old?male admitted to [facility] on 02/18/25 - See progress notes and H&P for detailed history.? Wound consult placed for Sacrum and and left foot.? Patient agreeable to assessment and photo documentation.? Patient reports comfort in [facility] Pulsate bed set to 4 bars and alternate Q10min. Reports comfort recommend continuing with specialty bed at this time. Patient was admitted recently and discharged home late last week and quickly returned - there remains concerns with patient ability to care for himself at home without services. Sacrum - S/p Flap and plastic reconstruction multiple times. irregular healed tissue noted - scar tissue and thin covering over bone. Left Sacrum Etiology: ??Stage 4 Pressure Injury - Present on Admission Wound Bed: adherent white slough Drainage / Odor: scant serosang noted on dressing Edges: ?macerated - irregular scar tissue noted - irregular healing noted Katie wound: ? red pink intact tissue - evidence of old injury to bilateral ischium - No Induration, Fluctuance or Warmth noted Pain: pain and tenderness reported Goals of Treatment: ? Specialty bed recommended and in use, Medi Honey and foam and off loading recommended Right BKA site noted for pink intact hyperpigmented tissue - no open tissue noted - no topical wound recommendations needed at this time. Left Toes - dry stable scabs noted - resolving mild erythema noted - no topical recommendations needed at this time as scabs are stable. Patient reports he is unsure of the cause of the injury - suspect friction. Left heel and lateral foot - remains intact but there is irregular maroon purpura like pigmentation noted - no PI noted at this time - recommend off loading with pillows may apply preventative foams. Recommendations: 1. Turn and Reposition every 2 hours and as needed for patient comfort.? Use pillows or wedges to support off loading positions. 2. Off Load all bony prominences with use of pillows and heel boots if needed.? Apply Preventative foams where needed. ? 3. Monitor for incontinence and moisture control, use barrier creams when needed for prevention and treatment. 4. Provide adequate and supplemental nutrition.? 5. Order Specialty Bed from [facility] - Pulsate bed. 6. When applicable maintain blood glucose levels per Providers order. Right BKA - No topical interventions needed. Left Toes - Stable clean scabs - no topical interventions needed at this time. Sacrum - Off Load Pressure with Q2 hr turns and use of pillows - Cleanse with NS moist gauze. Apply skin prep allow to dry.? Apply Medihoney to wound bed cover with dry gauze to fill space, cover with ABD pad dressing. Change every other day and PRN. Re-consult wound care Nurse for wound deterioration or wound changes.
[2025-02-19 19:55] VITALS: BP 170/102; PULSE 88; RESP 16; TEMP 36.4; O2SAT 99
[2025-02-19 21:00] LABS: Glucose, Whole Blood 166 mg/dL (60-115)
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
[2025-02-19 23:30] VITALS: BP 153/93; PULSE 76; RESP 16; TEMP 36; O2SAT 99
[2025-02-20 03:56] VITALS: BP 126/70; PULSE 68; RESP 16; TEMP 37.2; O2SAT 97
[2025-02-20 07:20] VITALS: BP 149/84; PULSE 64; RESP 16; TEMP 36.1; O2SAT 100
[2025-02-20 07:25] LABS: Glucose, Whole Blood 129 mg/dL (60-115)
[2025-02-20] MEDS: Nicotine 21 MG PATCH.TD24 TRANSDERMA (08:00)
[2025-02-20] MEDS: oxyCODONE HCl Immed Release 5 MG TABLET 7.5 MG PO (08:01)
[2025-02-20] MEDS: 0.9 % Sodium Chloride Flush 3 ML SYRINGE IVFLUSH (08:02)
--- NOTE | 2025-02-20 10:39 | HO.ADDICTPRO ---
Subjective Subjective Date of Service: 02/20/25 Reason For Visit: Alcohol Intoxication, Acute Lactic Acidosis Interim History: Patient seen in follow up to provide support and recovery resources for AUD He reports he has cut up his fathers ID, which is how he would order liquor via [employer]. He continues to decline MIGUEL, but accepts resources for Recovery Support--considering IOP. He is engaged with a therapist 2x/week, per his report, and he will review options with them He states that he has also been in more frequent contact with his brother in [place] Withdrawal resolved Review of Systems Constitutional: Reports as per HPI and Reports no additional constitutional complaints Mental Status Exam Mental Status Exam Level of Consciousness: Awake, Appropriate and Alert Affect Description: Calm Speech Pattern: Clear Hallucinations: None Thought Content: positive for Intact Judgement: Fair Diagnostics Vital Signs (24Hr): Vital Signs - 24 hr 02/19/25 11:35 02/19/25 15:37 02/19/25 19:55 Temperature 96.8 F 98.5 F 97.5 F Pulse Rate 74 89 88 Respiratory Rate 16 18 16 Blood Pressure 129/69 136/99 H 170/102 H Pulse Oximetry 95 97 99 Oxygen Delivery Method Room Air Room Air Room Air 02/19/25 23:30 02/20/25 03:56 02/20/25 07:20 Temperature 96.8 F 98.9 F 96.9 F Pulse Rate 76 68 64 Respiratory Rate 16 16 16 Blood Pressure 153/93 H 126/70 149/84 H Pulse Oximetry 99 97 100 Oxygen Delivery Method Room Air Room Air Room Air BMI result Body Mass Index 35.1 Labs 02/18/25 05:06 02/18/25 15:53 Labs: Laboratory Results - last 48 hr 02/18/25 02/18/25 02/18/25 11:23 13:38 13:53 Hold Purple Top Sodium Potassium Chloride Carbon Dioxide Anion Gap BUN Creatinine Estim Creat Clear Calc Estimated GFR POC Glucose 74 Random Glucose Lactic Acid 6.0 H* Lactic Acid F/U @ 2Hr 2.2 H* Calcium 02/18/25 02/18/25 02/18/25 15:32 15:53 20:28 Hold Purple Top Sodium 140 Potassium 3.1 L Chloride 104 Carbon Dioxide 24 Anion Gap 15 BUN 8 L Creatinine 0.59 Estim Creat Clear Calc 226.8 Estimated GFR > 60 POC Glucose 96 115 Random Glucose 90 Lactic Acid Lactic Acid F/U @ 2Hr Calcium 7.5 L D 02/19/25 02/19/25 02/19/25 06:28 07:14 11:20 Hold Purple Top SEE NOTE Sodium Potassium Chloride Carbon Dioxide Anion Gap BUN Creatinine Estim Creat Clear Calc Estimated GFR POC Glucose 126 H 80 Random Glucose Lactic Acid Lactic Acid F/U @ 2Hr Calcium 02/19/25 02/19/25 02/20/25 16:09 20:55 07:20 Hold Purple Top Sodium Potassium Chloride Carbon Dioxide Anion Gap BUN Creatinine Estim Creat Clear Calc Estimated GFR POC Glucose 108 166 H 129 H Random Glucose Lactic Acid Lactic Acid F/U @ 2Hr Calcium Medications Medications Current Medications Acetaminophen (Acetaminophen 325 Mg Tablet) 650 mg PO Q6H PRN PRN Reason: Pain, Mild 1-3,fever,headache Last Admin: 02/19/25 08:57 Dose: 650 mg Albuterol/Ipratropium (Albuterol/Iprat 2.5/0.5mg 3 Ml Ampul.Neb) 3 ml INHALE Q4H PRN PRN Reason: Shortness of Breath/Wheezing Calcium Carbonate (Calcium Carbonate 750 Mg Tab.Chew) 750 mg PO Q4H PRN PRN Reason: Heartburn Dextrose (Dextrose 50 % 25 Gm/50 Ml Syringe) 25 gm IVPUSH Q15M PRN; Protocol PRN Reason: per Hypoglycemia Standing Ord. Enoxaparin Sodium (Enoxaparin Sodium 40 Mg/0.4 Ml Syringe) 40 mg SUBCUT Q24H [facility] Last Admin: 02/20/25 08:00 Dose: 40 mg Folic Acid (Folic Acid 1 Mg Tablet) 1 mg PO DAILY [facility] Stop: 02/21/25 08:59 Last Admin: 02/20/25 08:02 Dose: 1 mg Glucose (Glucose Gel 15 Gm Gel..Gram.) 15 gm PO Q15M PRN; Protocol PRN Reason: per Hypoglycemia Standing Ord. Hydralazine HCl (Hydralazine Hcl 20 Mg/Ml Vial) 10 mg IVPUSH Q6H PRN; Protocol PRN Reason: SBP > 160 Insulin Human Lispro (Insulin Lispro 100 Unit/Ml 3 Ml Vial) 0 unit SUBCUT QIDACHS [facility]; Protocol Last Admin: 02/20/25 08:35 Dose: Not Given Magnesium Hydroxide (Milk Of Magnesia 30 Ml Oral.Susp) 30 ml PO DAILY PRN PRN Reason: Constipation Melatonin (Melatonin 3 Mg Tablet) 6 mg PO BEDTIME PRN PRN Reason: Insomnia Last Admin: 02/19/25 20:44 Dose: 6 mg Metoprolol Tartrate (Metoprolol Tartrate 25 Mg Tablet) 25 mg PO Q6H PRN; Protocol PRN Reason: Alcohol Withdrawal Nicotine (Nicotine 21 Mg Patch.Td24) 21 mg TRANSDERMA DAILY [facility] Last Admin: 02/20/25 08:00 Dose: 21 mg Omeprazole (Omeprazole 20 Mg Capsule.Dr) 20 mg PO DAILY@0630 [facility] Last Admin: 02/20/25 05:36 Dose: 20 mg Ondansetron HCl (Ondansetron Hcl 4 Mg/2 Ml Vial) 4 mg IVPUSH Q8H PRN PRN Reason: Nausea and Vomiting Oxycodone HCl (Oxycodone Hcl Immed Release 5 Mg Tablet) 7.5 mg PO Q6H PRN PRN Reason: Pain, Severe (Pain Scale 7-10) Last Admin: 02/20/25 08:01 Dose: 7.5 mg Pharmacy Consult (Consult Rx Etoh Phenob Im/Po) 1 each MISCELLANE ONCE [facility]; Protocol Phenobarbital (Phenobarbital 30 Mg Tablet) 30 mg PO BID [facility]; Protocol Stop: 02/22/25 09:01 Phenobarbital (Phenobarbital 30 Mg Tablet) 30 mg PO DAILY [facility]; Protocol Stop: 02/24/25 09:01 Polyethylene Glycol (Polyethylene Glycol 3350 17 Gm Powd.Pack) 17 gm PO DAILY PRN PRN Reason: Constipation Pregabalin (Pregabalin 75 Mg Capsule) 225 mg PO BID [facility] Last Admin: 02/20/25 08:01 Dose: 225 mg Senna (Sennosides 8.6 Mg Tablet) 17.2 mg PO BEDTIME [facility] Last Admin: 02/19/25 20:45 Dose: Not Given Sodium Chloride (0.9 % Sodium Chloride Flush 3 Ml Syringe) 3 ml IVFLUSH QSHIFT [facility] Last Admin: 02/20/25 08:02 Dose: 3 ml Thiamine HCl (Thiamine Hcl 100 Mg Tablet) 100 mg PO DAILY [facility] Stop: 02/21/25 08:59 Last Admin: 02/20/25 08:02 Dose: 100 mg Allergies Allergies Allergy/AdvReac Type Severity Reaction Status Date / Time baclofen Allergy Hives Verified 02/17/25 22:50 escitalopram (From Lexapro) Allergy Vomiting Verified 02/17/25 22:50 lithium Allergy Unresponsiv Verified 02/17/25 22:50 e metformin Allergy Unknown Verified 02/17/25 22:50 morphine Allergy Hives Verified 02/17/25 22:50 sulfamethoxazole (From Allergy Hives Verified 02/17/25 22:50 Bactrim) trimethoprim (From Bactrim) Allergy Hives Verified 02/17/25 22:50 Assessment & Plan Assessment & Plan (1) Alcohol use disorder, severe, dependence: Status: Acute Code(s): F10.20 - Alcohol dependence, uncomplicated Assessment and Plan: declined MIGUEL or appt for MIGUEL treatment follow up accepted resources --plans to follow up on his own. Appears to be moving toward contemplative stage of change Total time managing care of this patient today __20__ minutes.
[2025-02-20 11:27] VITALS: BP 156/90; PULSE 77; RESP 18; TEMP 36.1; O2SAT 97
[2025-02-20 11:40] LABS: Glucose, Whole Blood 132 mg/dL (60-115)
--- NOTE | 2025-02-20 11:47 | MHC.CM.PN ---
PT MEDICALLY CLEARED FOR DC HOME SELF-CARE, PT DECLINES MIGUEL AND PSYCH IPLOC, PT WILL UBER SELF HOME.
--- NOTE | 2025-02-20 11:55 | PM.DS ---
DS: Providers Provider Date of Service: 02/20/25 Date of admission: 02/18/25 04:46 Date of discharge: 02/20/25 Primary care physician: Unknown Physician Consults: 02/18/25 05:07 Addiction Medicine Provider Routine Consulting Provider: Addiction Covering Reason for consultation: repeated admission for ETOH abuse Has provider been notified: No 02/18/25 05:50 Consult to Wound Care Routine Reason for consultation: Left third toe recent OM, sacral decubitus with small blistering 02/18/25 06:19 Consult to Psychiatry Routine Consulting Provider: [facility] Psych Covering Reason for consultation: Bipolar/PTSD - frequent admissions alcohol abuse and self-care deficit 02/18/25 20:39 Inpt - Recovery Team Routine Comment: Reason for consultation: TARIQ eval DS: Diagnosis Discharge Diagnosis (1) Alcohol use disorder, severe, dependence: Status: Acute DS: Summary Hospital Course Hospital Course: from initial hpi: 40-year-old male currently living alone and disabled/wheelchair-bound with 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 The odor of alcohol is noted during admission interview. Pt is alert and orientated, no slurred speech and pt is able to protect airway. Patient states there are recent issues with patient's landlord and his spouse and he was having an argument with his landlord which led to increased consumption of alcohol since his return from the hospital February 15 (admitted for alcohol withdrawal February 12- ). Patient drank over 2 L of vodka over the last 48 hours. Patient obtains his alcohol via [employer]. Patient denies history of pancreatitis. Lipase 26. Patient states landlord's spouse ?hates me . Patient also states he lost his father December of 2024. Patient continues to grieve the loss of his father and is not coping well. Patient denies any SI or HI currently. Patient does have a therapist in the home setting but she is currently on vacation. Patient currently reporting tremors but is able to tolerate applesauce and fluid intake without any nausea or vomiting. Patient is unsure if he has a history of seizures related alcohol withdrawal. Patient is familiar with phenobarbital and is requesting phenobarbital for withdrawal. Patient has been requesting pain meds for sacral wound. Patient currently denies any chest pain, shortness of breath at rest, abdominal pain, nausea, vomiting, diarrhea, fever or chills. Pt denies any lower back pain. Pt states his father would do the wound care and he currently has no in house care to monitor wound since December 2024. Patient has evidence of an anion gap metabolic acidosis with normal renal function. Patient has no leukocytosis, platelets are normal, lactic acid 6.6 repeat pending. Liver enzymes mildly elevated. Magnesium 2.1. UA negative for any infection or ketones. VBG 7.42, 38, 46, 25. Alcohol level on admission 351. Tox screen positive for oxycodone and barbiturates.. Patient does use tobacco 1 pack per day but denies marijuana use or illicit drug use. There may be concern that patient's apartment is unhealthy in terms of its cleanliness and environment per pt. Pt admits to serious self-care deficits and is not coping well overall. Case management consulted for review of patient's needs to include nursing/ wound care and [employer] care. Recent admission history includes: February 02 through February 06 - infection left phalanx, alcohol withdrawal and patient was discharged on p.o. linezolid. Pt states he completed the linezolid. Patient had requested amputation of the affected left 3rd toe but was seen by General surgery and surgery was not indicated and requested vascular consultation. Vascular indicated the same continue conservative treatment. February 12 through February 15 - alcohol withdrawal, acute lactic acidosis and liver disease. Patient was instructed to call wound care clinic to make his 1st appointment and patient did not make the call. Currently patient has no in-home care of any kind. hospital course: Patient was admitted for alcohol dependence with acute withdrawal treated with phenobarbital protocol and symptoms normalized. Acute metabolic acidosis due to acute lactic acidosis due to alcohol intoxication resolved. For diabetes was continued on insulin. For C diff completed vancomycin has no further diarrhea. For history of left 3rd toe osteomyelitis completed antibiotic treatment for chronic wounds was seen by wound care who recommended continuing local care and following up with wound care as outpatient. Was previously seen by surgery and no intervention required at this time. For mood disorder was seen by Psychiatry who offered patient voluntary admission which patient declined. He is aware of concerns of alcohol dependence. He is able to express understanding of his medical situation and shows no sign of suicide or homicidal ideation or acute psychosis. He will be discharged home and follow up with services outpatient. Time Attestation Discharge Coordination Time (in mins): 32 Quality: Safe Use of Opioids Does Pt have an Active Cancer Diagnosis on the Problem List?: No Quality: Stroke Does the patient have a stroke diagnosis?: No Physical Exam Vital Signs: Vital Signs: Last Vital Signs Temp 96.9 F 02/20/25 11:27 Pulse 77 02/20/25 11:27 Resp 18 02/20/25 11:27 BP 156/90 H 02/20/25 11:27 Pulse Ox 97 02/20/25 11:27 O2 Del Method Room Air 02/20/25 11:27 BMI result Body Mass Index 35.1 Neck supple, no JVD Tachycardic with a regular rhythm, S1-S2 heard Regular breath sounds bilaterally, no wheezing or crackles appreciated Abdomen soft nontender, no guarding, no rigidity Patient is awake, alert and oriented to self, place, time and person ; Psych: Normal mood Chronic sacral ulcer, right BKA DS: Data Data Completed and Pending Completed studies during hospitalization [Text1]: Procedures Detoxification Services for Substance Abuse Treatment (02/02/25) Labs on day of discharge: Laboratory Results - last 24 hr 02/19/25 02/19/25 02/20/25 16:09 20:55 07:20 POC Glucose 108 166 H 129 H 02/20/25 11:34 POC Glucose 132 H Preliminary micro results at discharge 02/18/25 03:37 Blood Culture - Preliminary Blood - Venous No growth after 48 hours. 02/18/25 03:41 Blood Culture - Preliminary Blood - Venous No growth after 48 hours. Discharge Plan Discharge Anticipated Discharge Date/Time: 02/20/25 11:53 Patient Disposition: Home, Self-Care Discharge Diagnosis: etoh withdrawal Referrals: Physician,Unknown J [Primary Care Provider, Medical] - 1 Week Discharge Medications: Continued quetiapine 300 mg tablet 300 mg PO BEDTIME glipizide 5 mg tablet 5 mg PO DAILY escitalopram oxalate 10 mg tablet 10 mg PO DAILY pregabalin 225 mg capsule 225 mg PO BID vancomycin 125 mg Capsule 125 mg PO Q6H Qty: 16 0RF oxycodone 5 mg capsule 5 mg PO Q6H PRN (Reason: pain) Qty: 14 0RF Rx Instructions: Partial Fill upon patient request. Discharge Orders: Discharge Order (Routine); Ordered 02/20/25 Ordered By: Gaetano Cuadra Diet: Advance to usual diet Activity on Discharge: As tolerated Stand Alone Forms: Patient Portal Discharge page Print Language: Bengali Care Plan Goals: recovery Health Concerns: etoh dependence Plan of Treatment: avoid etoh Assessment: see above
[2025-02-22 16:08] LABS: VITAMIN D (1,25 OH) D3 48 pg/mL; Vit D (1,25-Dihydroxy) Total 48 pg/mL (18-72); Vitamin D (1,25 OH) D2 <8 pg/mL
== END 2025-02-20 13:02 | disposition home or self-care (01) | DRG 896 ==
LOC: HO.ED 02-18 04:46 → HO.EDOVER 02-18 04:53 → HO.IMC 02-18 14:06
PROVIDERS: Internal Medicine; Nurse Practitioner Family; Physician Assistant Medical; Admitting Provider Internal Medicine; Emergency Provider Emergency Medicine Emergency Medical Services; Visit Provider Internal Medicine
DX: F10.239 Alcohol dependence with withdrawal, unspecified (principal); L89.154 Pressure ulcer of sacral region, stage 4; E87.21 Acute metabolic acidosis; M46.28 Osteomyelitis of vertebra, sacral and sacrococcygeal region; M86.651 Other chronic osteomyelitis, right thigh; F17.210 Nicotine dependence, cigarettes, uncomplicated; Z89.511 Acquired absence of right leg below knee; Y90.8 Blood alcohol level of 240 mg/100 ml or more; Z99.3 Dependence on wheelchair; G65.0 Sequelae of Guillain-Barre syndrome; E11.42 Type 2 diabetes mellitus with diabetic polyneuropathy; F31.9 Bipolar disorder, unspecified; F43.10 Post-traumatic stress disorder, unspecified; F10.229 Alcohol dependence with intoxication, unspecified; Z63.4 Disappearance and death of family member; Z91.199 Patient's noncompliance with other medical treatment and regimen due to unspecified reason; Z71.6 Tobacco abuse counseling; Z79.84 Long term (current) use of oral hypoglycemic drugs; Z79.899 Other long term (current) drug therapy
CPT/HCPCS: 36415; 80048; 80053; 80307; 81003; 82010; 82550; 82652; 82803; 82947; 83605; 83690; 83735; 85025; 87040; 93005; 99285; J0696; J1650; J1885; J2560; J3411; S9485

== ENCOUNTER 2025-02-18 04:46 | Outpatient (BNV) | payer MEDICARE, MEDICAID, SELFPAY | END 2025-02-18 07:54 | PROVIDERS: Admitting Provider Internal Medicine; Emergency Provider Emergency Medicine Emergency Medical Services; Visit Provider Internal Medicine | DX: R00.0 Tachycardia, unspecified (principal) | CPT/HCPCS: 93010 ==

== ENCOUNTER → 2025-02-18 04:46 | Outpatient (BNV) | payer MEDICARE, MEDICAID, SELFPAY | PROVIDERS: Admitting Provider Internal Medicine; Emergency Provider Emergency Medicine Emergency Medical Services; Visit Provider Nurse Practitioner Family | DX: F10.929 Alcohol use, unspecified with intoxication, unspecified (principal) | CPT/HCPCS: 99223 ==

== ENCOUNTER → 2025-02-18 04:46 | Outpatient (BNV) | payer MEDICARE, MEDICAID, SELFPAY | PROVIDERS: Admitting Provider Internal Medicine; Emergency Provider Emergency Medicine Emergency Medical Services; Visit Provider Nurse Practitioner Psychiatric/Mental Health | DX: F10.20 Alcohol dependence, uncomplicated (principal) | CPT/HCPCS: 99231 ==

== ENCOUNTER 2025-03-08 07:15 | Inpatient (IN) | payer MEDICARE, MEDICAID, SELFPAY ==
[2025-03-08] VITALS (7 sets, daily range): BP systolic 123–177; BP diastolic 86–96; PULSE 84–104; RESP 16–18; TEMP 36–36.7; O2SAT 95–99; BMI 31.2; BMI 31.1
--- NOTE | ~2025-03-08 | XR_ITS ---
EXAMINATION: XR FOOT, LEFT CLINICAL INFORMATION: pain, concern for osteo COMPARISON: 02/12/2025, 02/02/2025. TECHNIQUE: AP, lateral, and oblique views of the left foot. FINDINGS: There is diffuse mild osteopenia. There has been amputation of the second and third digits at the distal aspects of the first phalanges. The osteotomy sites at these levels appear smooth without permeative change. There are chronic appearing erosive changes involving the PIP joint of the third digit, unchanged from 02/02/2025. There is associated sclerosis of the third distal first phalanx. There are chronic appearing erosive changes involving the fifth distal metatarsal, unchanged from 02/02/2025. No fracture, gross dislocation, or malalignment. Normal plantar arch. There is a large amount of bony spurring involving the dorsal aspect of the calcaneus, in the Achilles region. This is unchanged. There is no ankle joint effusion. The soft tissues are normal without subcutaneous gas or foreign body seen. XR/XR foot LT min 3V IMPRESSION: 1. Stable chronic changes involving the left foot, without significant change from 02/02/2025. Given the appearance, cannot rule out infection involving the third digit proximal phalanx and PIP joint, although this is unchanged from the prior exams. 2. A large amount of hypertrophic bony spurring is present involving the dorsal calcaneus. 3. Soft tissues appear grossly normal without subcutaneous gas, significant swelling, or foreign body evident. Electronically signed by: Lei Cox MD 03/08/2025 08:59 AM EDT
--- NOTE | ~2025-03-08 | CT_ITS ---
EXAMINATION: CT ABDOMEN PELVIS WITHOUT THEN WITH IV CONTRAST HISTORY: abd pain, dark stools COMPARISON: Comparison is made with the prior examination dated 02/12/2025. TECHNIQUE: CT scan of the abdomen and pelvis was performed before and after the intravenous administration of 80 mL Omnipaque 350 to assess for GI bleeding. Delayed images were also obtained. Coronal and sagittal reformatted images were generated and reviewed. This CT exam was performed with one or more of the following dose reduction techniques: automated exposure control, adjustment of the mA and/or kV according to patient size, use of iterative reconstruction technique. DLP: 1717 mGy-cm ABDOMEN: LOWER CHEST: The visualized lung bases are clear. There is no pleural effusion. CARDIOVASCULATURE: The heart is normal in size. There is no pericardial effusion. LIVER: The liver is enlarged and demonstrates mildly decreased attenuation, consistent with steatosis. The liver demonstrates a nodular contour, consistent with cirrhosis. No liver mass is identified. The hepatic and portal veins are patent. GALLBLADDER / BILE DUCTS: There is cholelithiasis. There is no intra or extrahepatic biliary ductal dilatation. SPLEEN: The spleen is enlarged. No focal splenic lesion is identified. PANCREAS: The pancreas is unremarkable in appearance. ADRENAL GLANDS: The right adrenal gland is unremarkable. There is a 1.6 cm left adrenal nodule which measures 7.6 HU on the unenhanced examination, consistent with an adenoma. KIDNEYS/RETROPERITONEUM: No renal calculi are identified. There is no hydronephrosis. No renal masses are identified. LYMPH NODES: No abdominal or pelvic lymphadenopathy. VASCULATURE: The abdominal aorta is normal in caliber. MESENTERY/PERITONEUM: No free fluid. No masses. There is no free intraperitoneal gas. STOMACH: The stomach is collapsed, limiting evaluation. SMALL BOWEL: The small bowel is normal in caliber. There is hyperdense material in the distal small bowel prior to the injection of intravenous contrast. No extravasation is seen. COLON: There is diverticulosis of the colon without evidence of diverticulitis. No contrast extravasation is seen. There is a sigmoid anastomosis. APPENDIX: Normal. URINARY BLADDER/PELVIC ORGANS: The urinary bladder is nondistended, limiting evaluation. The prostate is normal in size. BONES / SOFT TISSUES: The patient is status post right total hip arthroplasty. There are decubitus ulcers overlying the ischial tuberosities bilaterally. CT/CT gi bleed abd pel wo/w IVcon IMPRESSION: 1. No contrast extravasation is seen to suggest active GI bleeding. 2. Cirrhosis of the liver with hepatic steatosis and splenomegaly. 3. Cholelithiasis. Colonic diverticulosis without evidence of diverticulitis. 4. Bilateral decubitus ulcers overlying the ischial tuberosities. 5. 1.6 cm left adrenal adenoma. Electronically signed by: Arnie Crisostomo MD 03/08/2025 11:09 AM EDT
--- NOTE | 2025-03-08 07:29 | ECG_ITS ---
Test Reason : tachy Blood Pressure : */* mmHG Vent. Rate : 100 BPM Atrial Rate : 100 BPM P-R Int : 162 ms QRS Dur : 60 ms QT Int : 354 ms P-R-T Axes : 45 -16 21 degrees QTcB Int : 456 ms Normal sinus rhythm Inferior infarct , age undetermined Anterior infarct (cited on or before 02-Nov-2020) Abnormal ECG When compared with ECG of 18-Feb-2025 07:54, No significant changes seen Referred By: Generic ED Physician Electronically Signed By: ROMIE MORA
[2025-03-08] MEDS: Thiamine HCL 200 MG in 0.9 % Sodium Chloride 100 ML 204 MG IV (07:50)
[2025-03-08] MEDS: Lactated Ringers 1,000 ML 999 ML IV (07:51)
[2025-03-08 07:58] LABS: MANUAL DIFF FLAG NO
[2025-03-08 08:00] LABS: Hematocrit 32.9 % (42.0-52.0); Hemoglobin 11.3 g/dl (14.0-18.0); Imm Gran Abs Auto 0.05 X10*3/uL (0.00-0.03); Imm Gran Pct Auto 0.6 % (0.0-0.4); Lymphocytes Absolute Auto 2.0 X10*3/uL (1.2-4.9); Mean Corpuscular HGB Conc 34.3 g/dl (31.0-36.0); Mean Corpuscular Hemoglobin 29.8 pg (27.0-33.0); Mean Corpuscular Volume 86.8 fL (80.0-98.0); NRBC Abs Auto 0.000 X10*3/uL (0.0-0.012); NRBC Pct Auto 0.0 /100WBC (0.0-0.2); Platelet Count 222 X10*3/uL (160-400); Red Blood Count 3.79 X10*6/uL (4.60-5.80); White Blood Count 8.7 X10*3/uL (4.8-10.8)
--- NOTE | 2025-03-08 08:04 | ED_ITS ---
HPI - General Adult General Chief complaint: General Medical Stated complaint: black stool Time Seen by Provider: 03/08/25 08:00 Source: patient and EMS Mode of arrival: EMS Limitations: no limitations History of Present Illness ED Provider: Angelica Lyons PA-C HPI narrative: Patient is a 40 year old assigned male at with a history of being disabled/wheelchair-bound, right [id number] amputation secondary to diabetes, current NIDDM, PVD, chronic sacral wound with OM, CDIFF 12/2024, peripheral neuropathy, bipolar disorder, depression, PTSD, alcohol abuse, liver cirrhosis, tobacco dependence, right hip OA, 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 Patient states that over the last 3 days he has had dark stools, his left foot has become more painful, and his buttock wounds are bothering him again. Patient states that he drank once since being discharged from the hospital on 02/20/2025 and that was yesterday because of the anniversary of his father's passing. Patient denies any dizziness, lightheadedness, abdominal pain, nausea, vomiting, fever, chills, blurry vision, double vision, loss of vision, chest pain, difficulty breathing, shortness of breath, back pain, night sweats, pain with urination, increased urinary frequency, increased urinary urgency, blood in his urine, syncope or a near syncopal episode, recent trauma or falls, bowel incontinence, bladder incontinence, or any other complaints at this time. Onset (ago): day(s) (3) Relieving factors: none Exacerbating factors: none Treatments prior to arrival: none Related Data Home Medications ?Medication ?Instructions ?Recorded ?Confirmed escitalopram oxalate 10 mg tablet 10 mg PO DAILY 02/0202/18/25 glipizide 5 mg tablet 5 mg PO DAILY 02/02/2502/18 pregabalin 225 mg capsule 225 mg PO BID 02/02/2502/18 quetiapine 300 mg tablet 300 mg PO BEDTIME 02/02/25 0 02/18/25 folic acid 1 mg tablet 1 mg PO DAILY 03/08/25 lamotrigine 25 mg tablet 25 mg PO DAILY 03/08/25 Previous Rx's ?Medication ?Instructions ?Recorded oxycodone 5 mg capsule 5 mg PO Q6H PRN pain #14 cap s 02/15/25 Allergies Allergy/AdvReac Type Severity Reaction Status Date / Time baclofen Allergy Hives Verified 03/08/25 07:25 escitalopram (From Lexapro) Allergy Vomiting Verified 03/08/25 07:25 lithium Allergy Unresponsiv Verified 03/08/25 07:25 e metformin Allergy Unknown Verified 03/08/25 07:25 morphine Allergy Hives Verified 03/08/25 07:25 sulfamethoxazole (From Allergy Hives Verified 03/08/25 07:25 Bactrim) trimethoprim (From Bactrim) Allergy Hives Verified 03/08/25 07:25 Review of Systems 2 Constitutional: Constitutional: Reports no additional constitutional complaints, Denies chills, Denies fever(s) and Denies night sweats Eyes: Eyes: Reports no additional eye complaints, Denies blurry vision, Denies change in vision, Denies diplopia, Denies eye discharge, Denies loss of vision and Denies eye pain ENT: Denies dizziness Cardiovascular: Cardiovascular: Reports no additional cardiovascular complaints, Denies chest pain, Denies lightheadedness, Denies Loss of Consciousness and Denies dyspnea Respiratory: Respiratory: Reports no additional respiratory complaints and Denies dyspnea Gastrointestinal: Gastrointestinal: Reports no additional gastrointestinal complaints, Denies abdominal pain, Reports melena, Denies hematochezia, Denies change in bowel habits and Reports change in stool character Genitourinary: Genitourinary: Reports no additional male genitourinary complaints, Denies hematuria, Denies oliguria, Denies difficulty urinating, Denies dysuria, Denies urinary frequency, Denies urinary hesitancy, Denies urinary incontinence and Denies urinary urgency Musculoskeletal: Musculoskeletal: Reports no additional musculoskeletal complaints, Denies numbness and Denies tingling Comments: chronic right BKA worsening left foot pain / swelling / redness Integumentary/Breasts: Comments: Worsening sacral wounds Neurologic: Denies dizziness, Denies loss of vision, Denies numbness and Denies tingling Psychiatric: Psychiatric: Reports no additional psychiatric complaints Endocrine: Endocrine: Reports no additional endocrine complaints Hematologic/Lymphatic: Hematologic/Lymphatic: Reports no additional hematologic/lymphatic complaints Allergic/Immunologic: Allergic/Immunologic: Reports no additional allergic/immunologic complaints PMFSH Past Medical History Attestation statement: The following information was validated with the patient. Source: old records reviewed and nursing notes reviewed Medical History Osteomyelitis of foot Decubitus ulcer Amputation of one or more toes Aftercare following right hip joint replacement surgery Bipolar disorder PTSD (post-traumatic stress disorder) Sacral decubitus ulcer Peripheral neuropathy Non-insulin dependent type 2 diabetes mellitus Guillain-[place] Surgical History Hx of laminectomy History of total hip replacement Hx of right BKA Social History Social History Household Members: None Housing: Apartment Do you presently have visiting nurse or other home services: No Alcohol intake: current Alcohol intake frequency: a few times a week Alcohol type: hard liquor Comment: stand pivot to luz marina avila Patient Tobacco Use Status: Current everyday Tobacco user Tobacco use type: Cigarette Cigarette Packs Per Day: 1 Cigarettes Per Day: 20.0 Years Smoked: 29 years Smoked in Last 30 Days: Yes Second Hand Smoke Exposure: No Use of substances other than those prescribed or required for medical reasons: Yes Substance Use Type: Marijuana Advance Directives: No Advance Directives Information Provided: Yes Do you have a plan to hurt others: No Plan service: No Physical Exam ED Vital Signs: Vital Signs - 24 hr 03/08/25 07:24 03/08/25 07:36 03/08/25 10:50 Temperature 98 F 98.1 F Pulse Rate 101 H 98 Respiratory Rate 18 18 16 Blood Pressure 134/88 130/86 Pulse Oximetry 98 99 Oxygen Delivery Method Room Air Room Air BMI result Body Mass Index 31.2 Const General: cooperative, no acute distress, alert and awake Nutritional Appearance: well nourished Orientation/consciousness: patient oriented x3 HENMT Head: Yes normal to inspection and Yes atraumatic Ears: hearing grossly normal bilaterally and external ears normal General nose exam: Normal external nose present, no nasal discharge noted and no epistaxis Face and sinus: Yes normal facial exam, No abrasion and No laceration Mouth: Normal oral and palatal mucosa present, no drooling and no muffled voice Eyes General: appearance normal, both eyes and all related structures Periorbital: periorbital findings normal Eyelids: Yes eyelids normal Conjunctivae: conjunctivae normal Pupils: Equal, round and reactive pupils present EOM: EOMs intact bilaterally Neck Neck: Yes normal visual inspection, Yes full ROM and Yes no lymphadenopathy Resp Effort & Inspection: normal respiratory effort and able to speak in complete sentences Neuro General: patient oriented x3, moves all extremities and CN's II-XI intact bilaterally Cranial nerves: Yes Equal, round and reactive pupils present Cognition (Neuro): normal cognition Extrem Other: right BKA - chronic for the patient left foot: sacrum: General: Yes full ROM and Yes capillary refill normal Psych Appearance: grossly normal Mental Status: mental status grossly normal Affect: normal affect Attitude: cooperative Thought process: Normal thought process present Thought content: Normal thought content present Insight: Good insight present (Psych) Medications Administered Generic Name Dose Route Start Last Admin Trade Name Freq PRN Reason Stop Dose Admin Hydromorphone HCl 1 mg 03/08/25 11:41 03/08/25 11:44 Hydromorphone Hcl 1 Mg/Ml Syringe IVPUSH 1 mg Q4H PRN Administration Pain, Severe (Pain Scale 7-10) Protocol Lactated Ringer's 1,000 mls @ 100 mls/hr 03/08/25 11:45 03/08/25 12:46 Lr IVCONT 100 mls/hr .Q10H CHERISE Administration Discontinued Medications Generic Name Dose Route Start Last Admin Trade Name Freq PRN Reason Stop Dose Admin Ceftriaxone Sodium 1 gm 03/08/25 08:21 03/08/25 08:45 Ceftriaxone Sodium 1 Gm Vial IVPUSH 03/08/25 08:22 1 gm ONCE ONE Administration Hydromorphone HCl 1 mg 03/08/25 08:21 03/08/25 08:45 Hydromorphone Hcl 1 Mg/Ml Syringe IVPUSH 03/08/25 08:22 1 mg ONCE ONE Administration Protocol Hydromorphone HCl 1 mg 03/08/25 11:15 03/08/25 11:41 Hydromorphone Hcl 1 Mg/Ml Syringe IVPUSH 03/08/25 11:16 1 mg ONCE ONE Administration Protocol Lactated Ringer's 1,000 mls @ 999 mls/hr 03/08/25 07:29 03/08/25 09:10 Lr IV 03/08/25 08:29 Infused .Q1H1M ONE Infusion Thiamine HCl 200 mg/ Sodium 102 mls @ 204 mls/hr 03/08/25 07:29 03/08/25 08:24 Chloride IV 03/08/25 07:58 Infused ONCE ONE Infusion Vancomycin HCl 1,000 mg/ 270 mls @ 270 mls/hr 03/08/25 11:21 03/08/25 12:45 Sodium Chloride IV 03/08/25 12:20 Infused ONCE ONE Infusion Iohexol 100 ml 03/08/25 10:51 03/08/25 10:51 Iohexol 350 Mg/Ml 100 Ml Infus..Btl IV 03/08/25 10:52 80 ml ONCE ONE Administration Pantoprazole Sodium 40 mg 03/08/25 07:29 03/08/25 07:50 Pantoprazole Sodium 40 Mg/10 Ml Vial IVPUSH 03/08/25 07:30 40 mg ONCE ONE Administration Potassium Chloride 40 meq 03/08/25 08:31 03/08/25 08:44 Potassium Chloride Er 20 Meq Tab.Er.Prt PO 03/08/25 08:32 40 meq ONCE ONE Administration Medical Decision Making Medical Decision Making MDM Narrative: Patient is a 40 year old assigned male at with a history of being disabled/wheelchair-bound, right [id number] amputation secondary to diabetes, current NIDDM, PVD, chronic sacral wound with OM, CDIFF 12/2024, peripheral neuropathy, bipolar disorder, depression, PTSD, alcohol abuse, liver cirrhosis, tobacco dependence, right hip OA, 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 Patient's physical exam was as noted in the physical exam portion of this note. Patient's left foot erythematous and swollen concerning for cellulitis. Patient's blood work showed a hgb of 11.3 (last was 13.7 in 01/2025), potassium of 3.1, CRP of 1.69. Patient's EKG was unremarkable. Patient's left foot x-ray showed no acute process. Patient's CT GI bleed protocol of the abdomen/pelvis showed no evidence of acute bleeding. I am suspicious that the patient may have intermittent upper GI Bleeding given his hgb today, reported stools, and history of alcohol use disorder. Additionally, the patient's left foot appears to be cellulitic. I spoke to the hospitalist team who agreed to admission. Patient's clinical presentation is not consistent with sepsis (@1130). I explained my physical exam findings as well as all test results to the patient. I answered all questions asked by the patient. Patient received multiple doses of IV dilaudid which, upon re-evaluation, he stated it helped his symptoms some. Patient verbalized agreement and understanding with this treatment plan and admission. Differential Diagnosis Differential Diagnoses: The differential diagnosis associated with the presentation includes Cellulitis Upper GI bleeding Intractable pain Admission/Observation Consideration of admission/observation: Escalation of care including admission/observation considered Patient admitted as noted in the MDM Rationale portion of this note. Consult Healthcare Provider Management of the patient was discussed with: Hospitalist (agreed to admission as noted in the MDM Rationale portion of this note. ) Lab Data [facility] Lab Attestation statement: I reviewed the patient's lab results. My interpretation of these results are in the MDM Rationale portion of this note. 03/08/25 07:54 03/08/25 07:54 Labs: Lab Results 03/08/25 03/08/25 03/08/25 Range/Units 07:54 08:03 08:37 WBC 8.7 (4.8-10.8) X10*3/uL RBC 3.79 L (4.60-5.80) X10*6/uL Hgb 11.3 L (14.0-18.0) g/dl Hct 32.9 L D (42.0-52.0) % MCV 86.8 (80.0-98.0) fL MCH 29.8 (27.0-33.0) pg MCHC 34.3 (31.0-36.0) g/dl RDW 16.3 H (11.0-16.0) % Plt Count 222 (160-400) X10*3/uL MPV 10.1 (9.4-12.4) fL Immature Gran % (Auto) 0.6 H (0.0-0.4) % Neut % (Auto) 69.6 (45-73) % Lymph % (Auto) 23.2 (20-40) % [place] % (Auto) 5.2 (2-11) % Eos % (Auto) 0.9 (0-4) % Baso % (Auto) 0.5 (0-2) % Lymph # (Auto) 2.0 (1.2-4.9) X10*3/uL [place] # (Auto) 0.5 (0.1-1.2) X10*3/uL Eos # (Auto) 0.1 (0.0-0.4) X10*3/uL Baso # (Auto) 0.0 (0.0-0.2) X10*3/uL Abs Immat Gran (auto) 0.05 H (0.00-0.03) X10*3/uL Absolute Neuts (auto) 6.1 (2.0-8.3) x10*3/uL Absolute Nucleated RBC 0.000 (0.0-0.012) X10*3/uL Nucleated RBC % (auto) 0.0 (0.0-0.2) /100WBC Sodium 144 (135-145) mmol/L Potassium 3.1 L (3.3-5.1) mmol/L Chloride 108 (96-108) mmol/L Carbon Dioxide 25 (22-29) mmol/L Anion Gap 14 (12-20) BUN 14 (9-16) mg/dL Creatinine 0.85 (0.5-1.4) mg/dL Estim Creat Clear Calc 145.5 Estimated GFR > 60 Random Glucose 126 H (60-115) mg/dL Lactic Acid 1.3 (0.5-2.0) mmol/L Calcium 9.1 D (8.4-10.2) mg/dL Magnesium 1.8 (1.6-2.6) mg/dL Total Bilirubin 0.6 (0.0-1.0) mg/dL Direct Bilirubin 0.3 (0.0-0.5) mg/dL AST 81 H (5-37) U/L ALT 34 (0-40) U/L Alkaline Phosphatase 73 (39-117) U/L C-Reactive Protein 1.69 H (< or = 0.50) mg/dL Total Protein 6.5 (6.5-8.0) g/dL Albumin 4.0 (3.5-5.0) g/dL Lipase 43 (8-78) U/L Urine Color Dark Yellow Urine Appearance Clear Urine pH 6.5 (5.0-9.0) Ur Specific [place] 1.020 (1.005-1.025) Urine Protein 30 (1+) H (Neg-Trace) mg/dL Urine Glucose (UA) Negative (Negative) mg/dL Urine Ketones Trace (Negative) mg/dL Urine Blood Negative (Negative) Urine Nitrite Negative (Negative) Ur Leukocyte Esterase Negative (Negative) Urine RBC 0-2 (0-2) /HPF Urine WBC 0-5 (0-5) /HPF Ur Squamous Epith Cells 0-2 (0-2) /HPF Urine Bacteria None Seen (None Seen) Hyaline Casts 0-2 (0-2) /LPF Ethyl Alcohol < 10 mg/dL Independent Interpretation I performed an independent interpretation of an: EKG, Plain X-Ray and CT Scan Interpretation: My interpretation is in agreement with the radiologist's impression of these imaging studies. L Report Number: [id number]: Total DLP = 1717.00 mGy-cm EXAMINATION: CT ABDOMEN PELVIS WITHOUT THEN WITH IV CONTRAST HISTORY: abd pain, dark stools COMPARISON: Comparison is made with the prior examination dated 02/12/2025. TECHNIQUE: CT scan of the abdomen and pelvis was performed before and after the intravenous administration of 80 mL Omnipaque 350 to assess for GI bleeding. Delayed images were also obtained. Coronal and sagittal reformatted images were generated and reviewed. This CT exam was performed with one or more of the following dose reduction techniques: automated exposure control, adjustment of the mA and/or kV according to patient size, use of iterative reconstruction technique. DLP: 1717 mGy-cm ABDOMEN: LOWER CHEST: The visualized lung bases are clear. There is no pleural effusion. CARDIOVASCULATURE: The heart is normal in size. There is no pericardial effusion. LIVER: The liver is enlarged and demonstrates mildly decreased attenuation, consistent with steatosis. The liver demonstrates a nodular contour, consistent with cirrhosis. No liver mass is identified. The hepatic and portal veins are patent. GALLBLADDER / BILE DUCTS: There is cholelithiasis. There is no intra or extrahepatic biliary ductal dilatation. SPLEEN: The spleen is enlarged. No focal splenic lesion is identified. PANCREAS: The pancreas is unremarkable in appearance. ADRENAL GLANDS: The right adrenal gland is unremarkable. There is a 1.6 cm left adrenal nodule which measures 7.6 HU on the unenhanced examination, consistent with an adenoma. KIDNEYS/RETROPERITONEUM: No renal calculi are identified. There is no hydronephrosis. No renal masses are identified. LYMPH NODES: No abdominal or pelvic lymphadenopathy. VASCULATURE: The abdominal aorta is normal in caliber. MESENTERY/PERITONEUM: No free fluid. No masses. There is no free intraperitoneal gas. STOMACH: The stomach is collapsed, limiting evaluation. SMALL BOWEL: The small bowel is normal in caliber. There is hyperdense material in the distal small bowel prior to the injection of intravenous contrast. No extravasation is seen. COLON: There is diverticulosis of the colon without evidence of diverticulitis. No contrast extravasation is seen. There is a sigmoid anastomosis. APPENDIX: Normal. URINARY BLADDER/PELVIC ORGANS: The urinary bladder is nondistended, limiting evaluation. The prostate is normal in size. BONES / SOFT TISSUES: The patient is status post right total hip arthroplasty. There are decubitus ulcers overlying the ischial tuberosities bilaterally. CT/CT gi bleed abd pel wo/w IVcon IMPRESSION: 1. No contrast extravasation is seen to suggest active GI bleeding. 2. Cirrhosis of the liver with hepatic steatosis and splenomegaly. 3. Cholelithiasis. Colonic diverticulosis without evidence of diverticulitis. 4. Bilateral decubitus ulcers overlying the ischial tuberosities. 5. 1.6 cm left adrenal adenoma. Electronically signed by: Arnie Crisostomo MD 03/08/2025 11:09 AM EDT Dictated By: Arnie Crisostomo MD Signed By: Electronically signed by Arnie Crisostomo MD 03/08/25 1109 EXAMINATION: XR FOOT, LEFT CLINICAL INFORMATION: pain, concern for osteo COMPARISON: 02/12/2025, 02/02/2025. TECHNIQUE: AP, lateral, and oblique views of the left foot. FINDINGS: There is diffuse mild osteopenia. There has been amputation of the second and third digits at the distal aspects of the first phalanges. The osteotomy sites at these levels appear smooth without permeative change. There are chronic appearing erosive changes involving the PIP joint of the third digit, unchanged from 02/02/2025. There is associated sclerosis of the third distal first phalanx. There are chronic appearing erosive changes involving the fifth distal metatarsal, unchanged from 02/02/2025. No fracture, gross dislocation, or malalignment. Normal plantar arch. There is a large amount of bony spurring involving the dorsal aspect of the calcaneus, in the Achilles region. This is unchanged. There is no ankle joint effusion. The soft tissues are normal without subcutaneous gas or foreign body seen. XR/XR foot LT min 3V IMPRESSION: 1. Stable chronic changes involving the left foot, without significant change from 02/02/2025. Given the appearance, cannot rule out infection involving the third digit proximal phalanx and PIP joint, although this is unchanged from the prior exams. 2. A large amount of hypertrophic bony spurring is present involving the dorsal calcaneus. 3. Soft tissues appear grossly normal without subcutaneous gas, significant swelling, or foreign body evident. Electronically signed by: Lei Cox MD 03/08/2025 08:59 AM EDT Dictated By: Lei Cox MD Signed By: Electronically signed by Lei Cox MD 03/08/25 0859 I independently interpreted this EKG and am in agreement with the below findings: Vent. Rate: 100 BPM Atrial Rate: 100 BPM P-R Int: 162 ms QRS Dur: 60 ms QT Int: 354 ms P-R-T Axes: 45 -16 21 degrees QTcB Int: 456 ms Normal sinus rhythm Inferior infarct , age undetermined Anterior infarct (cited on or before 02-Nov-2020) When compared with ECG of 18-Feb-2025 07:54, Inferior infarct is now Present Questionable change in initial forces of Anterior leads Nonspecific T wave abnormality, worse in Anterior leads DD/ [id number] Radiology Impression Discussion of test interpretation with radiology: I have reviewed the radiologist's reading. Independent Historian Clinical information obtained from an independent historian. History obtained from or confirmed by: EMS (EMS provided additional history and confirmed the history provided by the patient.) Chronic Conditions Patient?s care impacted by: Diabetes Critical Care Time Critical Care Time Critical Care Time: Yes Total Critical Care Time: 36 Attestation: I spent 36 minutes of Critical Care Time with this patient. This does not include time spent on separately reported billable procedures. Discharge Plan Discharge Clinical Impression: Cellulitis, Upper gastrointestinal bleed, Intractable pain Patient Disposition: Admitted As Inpatient
--- OUTSIDE RECORDS SUMMARY | 2025-03-08 08:13 | XMS_ITS ---
Author Name [facility] Organization Unknown Care Team Organization Name Specialty Phone Email Start Date End [facility] MARQUISE JEREZ Primary Care 10/16/2021 04/16/2022
--- OUTSIDE RECORDS SUMMARY | 2025-03-08 08:14 | XMS_ITS | Encounter Summary ---
Author Organization [facility] Address [address] [place] [id number] Care Team Providers Care Project Manager Retail Name Role Phone Rosa Sepulveda NP Primary Care Provider [phone]- [phone] Encounter Details Date Type Department Care Team (Late st Contact Info) Description 07/08/[address] [facility] Plastic & Reconstructive Surgery [address] [place] [id number] David Corrales MD [address] [place] [id number] Social History Tobacco Use Types Packs/Day Years [...] on filedocumented in this encounter Care Teams Project Manager Retail Relationship Specialty Start Date End Date Rosa Sepulveda NP [address] [place] [address] PCP - General 05/09/19 documented as of this encounter
--- OUTSIDE RECORDS SUMMARY | 2025-03-08 08:14 | XMS_ITS | Data Portability ---
Author Organization [place] [facility] Address [address] [place] [address] Care Team Providers Care Overnight Houseperson Name Role Phone [facility] Primary Care Provider Assessment Encounter Date Assessment Date Assessment LastModified by Organization Details LastModified Time 09/03/2019 09/03/2019 Overview/History : 34 yo male new to and this provider who presents with complain of right wrist pain after traumatic injury that occurred 1 week ago. Patient was seen at the local ED and PCP office who ordered xray and diagnosed non-displaced fracture. Patient states that splint was applied but it would interfere with his walking as he was not able to hold on to rails. Patient removed splint and was applying BRYANT wrap. He states that pain is minimal at this time and he is able to use his hand just fine . Reports some swelling. Denied numbness, tingling, or weakness of the affected extremity. Comorbidities: DVT; sciatica syndrome; MRSA, PTSD, depression, GERD; brittle bone disease. Exam: obese male, well appearing, no acute distress, non-toxic appearance; alert and oriented X4; ambulates independently with assisting device No signs of respiratory distress. Lungs are clear to auscultation in all fileds Right wrist without any deformity or external signs of trauma. Patient is moving his hand anf arm without hesitation, minor swelling is present, no tenderness on palpation, pain/discomfort reported with active ROM; distal vascular and motor-sensory functions are intact. Good range of motion of all other major joints. No external signs of trauma. No erythema or cyanosis of lower extremities. DDx considered, but not limited to: non-displaced wrist fracture diagnosed Work up/Results: none Plan/Discussion: - patient has a diagnosed non-displaced fracture of right wrist; follow up with ortho scheduled in 3 days; patient is moving his hand without hesitation or notable discomfort - applied wrist brace; advised NSAIDs, ice, elevation; follow up with ortho as scheduled - follow up with PCP as needed within 3-5 days or sooner if symptoms worsen or do not improve - advised when to seek immediate medical attention/911/ED - patient expressed understanding and agreed to tx plan In order to obtain further information and compare any laboratory results/values, I have accessed patient records on the [facility]. This information was pertinent in my medical decision making today. Time On Scene with Patient: 00:22:51 zoey Not available 09/03/2019 13:49:10 Plan of Treatment Reminders Order Date Submit Date Provider Last Modified By Organization Details Last Modified Time Details Appointments None record ed. Lab None record ed. Referral None record ed. Procedures None record ed. Surgeries None record ed. Imaging None record ed. Medication Orders None record ed. Patient TargetsNo targets recorded. Patient Instructions Encounter Date Encounter Id Patient Instructions Last Modified By Organization Details Last Modified Time 09/03/2019 [id number] YOU WERE SEEN FO R WRIST FRACTURE. WE APPLIED WRIST BRACE. PLEASE, KEEP YOUR ARM ELEVATED, APPLY ICE 20 MIN ON/OFF. PLEASE, FOLLOW UP WITH ORTHO SCHEDULED. Thank you for your visit with [facility] today. We cannot always find the exact cause of your symptoms during your initial visit. Please follow up with your primary care provider or specialist as needed to be rechecked or seek medical attention if your symptoms do not go away or get worse. If you develop any new or worsening symptoms and need after hours care, please go to nearest ER and/or call 911. If you have additional concerns or develop a change in your condition between 8am-10pm, please call [facility] at [phone] to help navigate your care. Thank you for your visit with [facility] today. You do not appear to have a fracture or dislocation that requires immediate surgical intervention. However, small breaks or ligament tears may not be obvious on initial examination. Given this concern, we may have placed you in a temporary splint. If an xray is indicated, we will help direct you to the best option to obtain your imaging study. We have also given you follow up directions. Please follow up with your primary care physician or specialist as directed. If you develop any new or worsening symptoms and need after hours care, please go to nearest ER and/or call 911. If you have additional concerns or develop a change in your condition between 8am-10pm, please call [facility] at [phone] to help navigate your care. zoey Not available 09/03/2019 13:25:38 Reason for Referral None Reported. Medical Equipment None Reported. Allergies Allergen ID Allergen Name Allergen Category Reaction Reaction Severity Criticality Documentation Date Start Date Code Code System Note Provider Name and Address Organization Details Recorded Time 46738 baclofen medicatio n Not available Not available Not available 09/03/2019 1292 RxNorm [facility] [address] [place], [address], [place] [facility] 13:07:35 Medications Name Sig Start Date Stop Date Status Note LastModified by Organization Details LastModified Time clonidine HCl 0.1 mg tablet 09/03 completed Not Available Not Available Not Available venlafaxine ER 75 mg capsule,extende d release 24 hr active Not Available Not Availa ble Not Available doxycycline hyclate 100 mg capsule 09/03 completed Not Available Not Available Not Available tizanidine 2 mg tablet 09/03 completed Not Available Not Available Not Available doxepin 25 mg capsule active Not Available Not Available Not Available minocycline 100 mg capsule active Not Available Not Available N ot Available clonazepam 1 mg tablet 09/03 completed Not Available Not Available Not Available vancomycin 1,000 mg intravenous injection 09/03 completed Not Available Not Available Not Available amitriptyline 25 mg tablet 09/03 completed Not Available Not Available Not Available tamsulosin 0.4 mg capsule 09/03 completed Not Available Not Available Not Available trazodone 100 mg tablet 09/03 completed Not Available Not Available Not Available divalproex ER 500 mg tablet,extended release 24 hr 09/03 completed Not Available Not Available Not Available naproxen 500 mg tablet,delayed release active Not Available Not Available Not Available gabapentin 300 mg capsule active Not Available Not Available N ot Available omeprazole 20 mg capsule,delayed release active Not Available Not Available Not Available diclofenac sodium 75 mg tablet,delayed release active Not Available Not Available Not Available morphine ER 15 mg tablet,extended release 09/03 completed Not Available Not Available Not Available nystatin 100,000 unit/gram topical powder active Not Available Not Availab le Not Available vancomycin 10 gram intravenous solution 09/03 completed Not Available Not Available Not Available fentanyl 25 mcg/hr transdermal patch 09/03 completed Not Available Not Available Not Available morphine 15 mg immediate release tablet 09/03 completed Not Available Not Available Not Available doxycycline hyclate 100 mg tablet 09/03 completed Not Available Not Available Not Available ipratropium bromide 21 mcg (0.03 %) nasal spray active Not Available Not Available Not Available diazepam 5 mg tablet active Not Available Not Available Not Available Ventolin HFA 90 mcg/actuation aerosol inhaler active Not Available Not Availa ble Not Available oxycodone 5 mg tablet 09/03 completed Not Available Not Available Not Available enoxaparin 40 mg/0.4 mL subcutaneous syringe 09/03 completed Not Available Not Available Not Available fentanyl 12 mcg/hr transdermal patch 09/03 completed Not Available Not Available Not Available oxycodone 10 mg tablet 09/03 completed Not Available Not Available Not Available Senexon-S active Not Available Not Carole ilable Not Available lidocaine 5 % topical ointment 09/03 completed Not Available Not Available Not Available Vitals Date Recorded Heart rate Respiratory rate Oxygen saturation Oxygen saturation in Arterial blood by Pulse oximetry Body temperature Systolic And Diastolic Provider Name and Address Organization Details Last Updated DateTime 0 118 /min 18 /min 98 % 98 % 98.2 [degF] 150/96 mm[Hg] Not Available [facility] 0 13:10:54 Social History Question Answer Notes LastModified by Organizat ion Details LastModified Time Tobacco Smoking Status Never Smoker [facility] [address], [place], [address], [place] [facility] 09/03/2019 13:30:41 How Many Days In The Past Year Have You Had A Heavy Drinking Consumption (4+ Female, 5+ Male)? 0 [email or web address] Information not available 09/03/2019 Marital Status Single [email or web address] Informatio n not available 09/03/2019 Sex: Unknown Functional Status None recorded. Mental Status None recorded. Family History Relationship Description Onset Age of this Age Resolved Age Notes LastModified by Organization Details LastModified Time Father No current problems or disability [email or web address] Not available 09/03 13:30:35 Mother No current problems or disability zoey Not available 09/03 13:30:35 Medical History Condition Response Diabetes N Coronary Artery Disease N Cancer N Stroke N Depression Y COPD N Asthma N High Cholesterol N Pulmonary Embolism N Hypertension N Kidney Disease N Past Encounters Encounter ID Performer Location Encounter Start Date Encounter Closed Date Diagnosis/Indication Diagnosis SNOMED-CT Code Diagnosis ICD10 Code Diagnosis Note [id number] [facility] [address] [place] [address] 09/03/2019 13:05:13 09/05/2019 20:30:49 Pain in upper limb 709080546 M79.601 Traumatic injury 9212532 04 T14.90XA Health Concerns Section Related Observation LastModified by Organization Detai ls LastModified Time None Recorded Concern Status LastModified by Organization Details LastModified Time None Recorded Advance Directives Directive None Recorded Payers Insurance Date Sequence Insurance Name Policy Number Policy Marinelli Covered Member ID Marinelli Member ID Guarantor Name 09/05/2019 2 [place] Jean Roldan [id number] Jean Roldan 09/02/2019 1 *SELF PAY* Jean Roldan [id number] Jean Roldan 09/03/2019 1 [place] [employer] Jean Roldan [id number] Jean Roldan Notes Date Note Type Note Provider Name and Address Organization Details Recorded Time 09/03/2019 text/html Mr. Roldan is a 34 yo male new to and this provider who presents with complain of right wrist pain after traumatic injury that occurred 1 week ago. Patient was seen at the local ED and PCP office who ordered xray and diagnosed non-displaced fracture. Patient states that splint was applied but it would interfere with his walking as he was not able to hold on to rails. Patient removed splint and was applying BRYANT wrap. He states that pain is minimal at this time and he is able to use his hand just fine . Reports some swelling. Denied numbness, tingling, or weakness of the affected extremity. [facility] SING[facility] [address], [place], [address], [place] [facility] 09/03/2019 13:49:15
--- OUTSIDE RECORDS SUMMARY | 2025-03-08 08:14 | XMS_ITS | Clinical Summary ---
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 catch procedure / Unknown Non-blood Collection / Unknown 02/22/2025 12:09 AM EDT 02/22/2025 12:46 AM EDT us Salvador Oleary MD LAB URINE ORDERABLES Final Result Performing Organization Address City/[facility]/ZIP Co de Phone Number [facility] [address] [place] [address], [place] [phone] * Phencyclidine, urine (02/22/2025 12:09 AM EDT) PCP Scrn, Ur Negative Negative LAB CHEMISTRY METHOD 02/22/2025 1:23 AM EDT [facility] Comment: Assay cutoff 25 ng/mL Semi-quantitative assay for screening purposes only. Unconfirmed screening result should not be used for non-medical purposes. *ALTERNATE METHOD CONFIRMATION DONE UPON REQUEST ONLY* Urine Urine specimen obtained by clean catch procedure / Unknown Non-blood Collection / Unknown 02/22/2025 12:09 AM EDT 02/22/2025 12:46 AM EDT Salvador Oleary MD LAB URINE ORDERABLES Final Result Performing Organization Address City/[facility] Co de Phone Number [facility] [place] ([facility] [address] [place] [address], [place] [phone] * ECG 12 lead (02/21/2025 11:59 PM EDT) Ventricular Rate ECG 105 BPM GEMUSE Atrial Rate 105 BPM GEMUSE P-R Interval 138 ms GEMUSE QRS Duration 76 ms GEMUSE Q-T Interval 344 ms GEMUSE QTc 454 ms GEMUSE P Wave [place] 31 degrees GEMUSE R [place] -21 degrees GEMUSE T [place] 0 degrees GEMUSE ECG Interpretation Sinus tachycardia Possible Inferior infarct (cited on or before 02-MAR-2022) Possible Anterior infarct , age undetermined Abnormal ECG When compared with ECG of 08-APR-2024 23:15, Borderline criteria for Anterior infarct are now Present Inverted T waves have replaced nonspecific T wave abnormality in Inferior leads Confirmed by Roro NOYOLA JOHN ([id number]) on 02/22/2025 12:54:15 PM GEMUSE 02/21/2025 11:5 9 PM EDT 02/22/2025 12:54 PM EDT Salvador Oleary MD ECG ORDERABLES Final Resul t Performing Organization Address [facility] Co de Phone Number GEMUSE * XR Hip 2-3 Views Right (02/21/2025 11:46 PM EDT) Anatomical Region Laterality Modality Lower Extremities, Hip Right Radiograp hic Imaging 02/22/2025 8:46 AM EDT Impressions 02/22/2025 8:47 AM EDT No acute findings. -------- FINAL REPORT -------- Dictated By: You Fuller Dictated Date: 02/22/2025 08:46 ET Assigned Physician: You Fuller Reviewed and Electronically Signed By: You Fuller Signed Date: 02/22/2025 08:47 ET Workstation ID: [id number] Transcribed By: Self Edit Transcribed Date: 02/22/2025 08:46 ET Narrative 02/22/2025 8:47 AM EDT PROCEDURE: Radiographs of the right hip. HISTORY: FALL AND PAIN. COMPARISON: None. FINDINGS: Total right hip arthroplasty. No periprosthetic fracture or findings to suggest hardware loosening. Normal alignment. Degenerative changes of the left hip and pubic symphysis. Partially visible degenerative changes of the lumbar spine. Procedure Note You Fuller MD - 02/22/2025 PROCEDURE: Radiographs of the right hip. HISTORY: FALL AND PAIN. COMPARISON: None. FINDINGS: Total right hip arthroplasty. No periprosthetic fracture or findings tosuggest hardware loosening. Normal alignment. Degenerative changes ofthe left hip and pubic symphysis. Partially visible degenerative changesof the lumbar spine. IMPRESSION: No acute findings. -------- FINAL REPORT -------- Dictated By: You Fuller Dictated Date: 02/22/2025 08:46 ET Assigned Physician: You Fuller Reviewed and Electronically Signed By: You Fuller Signed Date: 02/22/2025 08:47 ET Workstation ID: [id number] Transcribed By: Self Edit Transcribed Date: 02/22/2025 08:46 ET us David Alexander MD IMG XR PROCEDURES Final Res ult * CT Cervical Spine wo Contrast (02/21/2025 11:20 PM EDT) Anatomical Region Laterality Modality Spine, C-spine Computed Tomogra phy 02/22/2025 12:1 2 AM EDT Impressions 02/22/2025 12:12 AM EDT 1. No acute cervical spine fracture. 2. Chronic appearing compression deformity of C6. This document has been electronically signed by: Mayur Dewitt MD on 02/22/2025 00:12:30 Narrative 02/22/2025 12:12 AM EDT INDICATION: fall CT cervical spine without contrast Comparison: None provided Findings: Normal vertebral body alignment. Mild degenerative changes of the cervical spine. There is a anterior compression deformity at C6 with mild anterior height loss. Fracture appears chronic, without acute cortical step-off or fracture margin seen. No acute findings on limited view of the intracranial contents. No cervical fluid collections or masses. Lung apices are clear. Procedure Note Myaur Dewitt MD - 02/22/2025 INDICATION: fall CT cervical spine without contrast Comparison: None provided Findings: Normal vertebral body alignment. Mild degenerative changes of the cervical spine. There is a anterior compression deformity at C6 with mild anteriorheight loss. Fracture appears chronic, without acute cortical step-off or fracture margin seen. No acute findings on limited view of the intracranial contents. No cervical fluid collections or masses. Lung apices are clear. IMPRESSION: 1. No acute cervical spine fracture. 2. Chronic appearing compression deformity of C6. This document has been electronically signed by: Mayur Dewitt MD on 02/22/2025 00:12:30 Salvador Oleary MD IMG CT PROCEDURES Final Res ult * CT Head wo Contrast (02/21/2025 11:20 PM EDT) Anatomical Region Laterality Modality Head and Neck Computed Tomogra phy 02/22/2025 12:0 7 AM EDT Impressions 02/22/2025 12:07 AM EDT 1. No acute intracranial findings. This document has been electronically signed by: Mayur Dewitt MD on 02/22/2025 00:07:25 Narrative 02/22/2025 12:07 AM EDT INDICATION: fall CT head without contrast Comparison: None provided Findings: No intra-axial mass, midline shift, hydrocephalus, or acute hemorrhage. No significant atrophy-like change or white matter disease. There is no sinus or mastoid fluid. The orbits are unremarkable. There is no acute fracture. Procedure Note Mayur Dewitt MD - 02/22/2025 INDICATION: fall CT head without contrast Comparison: None provided Findings: No intra-axial mass, midline shift, hydrocephalus, or acute hemorrhage. No significant atrophy-like change or white matter disease. There is no sinus or mastoid fluid. The orbits are unremarkable. There is no acute fracture. IMPRESSION: 1. No acute intracranial findings. This document has been electronically signed by: Mayur Dewitt MD on 02/22/2025 00:07:25 Salvador Oleary MD IMG CT PROCEDURES Final Res ult * C-reactive protein (02/21/2025 11:01 PM EDT) [facility] C-Reactive Protein 0.34 <=0.50 mg/dL LAB CHEMISTRY METHOD 02/22/2025 4:20 AM EDT [facility] Blood Venous blood specimen / Unknown Venipuncture / Unknown 02/21/2025 11:01 PM EDT 02/21/2025 11:32 PM EDT David Alexander MD LAB BLOOD ORDERABLES Final Result Performing Organization Address [facility]/ZIP Co de Phone Number [facility] [address] [place] [address], [place] [phone] * (ABNORMAL) Magnesium (02/21/2025 11:01 PM EDT) [facility] Magnesium 1.3(L) 1.9 - 2.6 mg/dL LAB CHEMISTRY METHOD 02/22/2025 12:28 AM EDT [facility] Comment:Hemolysis present Blood Venous blood specimen / Unknown Venipuncture / Unknown 02/21/2025 11:01 PM EDT 02/21/2025 11:32 PM EDT Salvador Oleary MD LAB BLOOD ORDERABLES Final Result Performing Organization Address City/[facility]/ZIP Co de Phone Number [facility] [address] [place] [address], [place] [phone] * Lipase (02/21/2025 11:01 PM EDT) [facility] Lipase 21 13 - 75 unit/L LAB CHEMISTRY METHOD 02/22/2025 12:28 AM EDT [facility] Blood Venous blood specimen / Unknown Venipuncture / Unknown 02/21/2025 11:01 PM EDT 02/21/2025 11:32 PM EDT Salvador Oleary MD LAB BLOOD ORDERABLES Final Result Performing Organization Address [facility]/ZIP Co de Phone Number [facility] [address] [place] [address], [place] [phone] * (ABNORMAL) Ethanol (02/21/2025 11:01 PM EDT) Ethanol Level 79(H) 0 - 10 mg/dL LAB CHEMISTRY METHOD 02/22/2025 12:28 AM EDT [facility] Blood Venous blood specimen / Unknown Venipuncture / Unknown 02/21/2025 11:01 PM EDT 02/21/2025 11:32 PM EDT us Salvador Oleary MD LAB BLOOD ORDERABLES Final Result Performing Organization Address [facility] Co de Phone Number [facility] [address] [place] [address], [place] [phone] * (ABNORMAL) Acetaminophen level (02/21/2025 11:01 PM EDT) Acetaminophen Level <2.0(L) 10.0 - 30.0 mcg/mL LAB CHEMISTRY METHOD 02/22/2025 12:28 AM EDT [facility] Blood Venous blood specimen / Unknown Venipuncture / Unknown 02/21/2025 11:01 PM EDT 02/21/2025 11:32 PM EDT us Salvador Oleary MD LAB BLOOD ORDERABLES Final Result Performing Organization Address City/[facility] Co de Phone Number [facility] [address] [place] [address], [place] [phone] * (ABNORMAL) Salicylate level (02/21/2025 11:01 PM EDT) [facility] Salicylate Level <1.7(L) 2.0 - 29.0 mg/dL LAB CHEMISTRY METHOD 02/22/2025 12:[address] [facility] Blood Venous blood specimen / Unknown Venipuncture / Unknown 02/21/2025 11:01 PM EDT 02/21/2025 11:32 PM EDT Salvador Oleary MD LAB BLOOD ORDERABLES Final Result [facility] [address] [place] [address], [place] [phone] * (ABNORMAL) Comprehensive metabolic panel (02/21/2025 11:01 PM EDT) [facility] Sodium 142 133 - 145 mmol/L LAB CHEMISTRY METHOD 02/22/2025 12:[address] [facility] Potassium 3.4(L) 3.5 - 5.5 mmol/L LAB CHEMISTRY METHOD 02/22/2025 12:[address] [facility] Comment:Hemolysis present Chloride 103 96 - 110 mmol/L LAB CHEMISTRY METHOD 02/22/2025 12:[address] [facility] CO2 25 21 - 32 mmol/L LAB CHEMISTRY METHOD 02/22/2025 12:[address] [facility] Anion Gap 14(H) 3 - 11 LAB CHEMISTRY METHOD 02/22/2025 12:[address] [facility] Glucose 118(H) 70 - 100 mg/dL LAB CHEMISTRY METHOD 02/22/2025 12:[address] [facility] BUN 7 5 - 25 mg/dL LAB CHEMISTRY METHOD 02/22/2025 12:[address] [facility] Creatinine 0.67(L) 0.70 - 1.30 mg/dL LAB CHEMISTRY METHOD 02/22/2025 12:[address] [facility] eGFR 120 >=60 mL/min/1. 73m2 LAB CHEMISTRY METHOD 02/22/2025 12:[address] [facility] Comment:Calculation based on the Chronic Kidney Disease Epidemiology Collaboration (CKD-EPI) equation refit without adjustment for race. BUN/Creatinine Ratio 10.4 LAB CHEMISTRY METHOD 02/22/2025 12:[address] [facility] Calcium 8.9 8.5 - 10.5 mg/dL LAB CHEMISTRY METHOD 02/22/2025 12:[address] [facility] AST (SGOT) 55(H) 10 - 42 unit/L LAB CHEMISTRY METHOD 02/22/2025 12:[address] [facility] Comment:Hemolysis present ALT (SGPT) 60 10 - 60 unit/L LAB CHEMISTRY METHOD 02/22/2025 12:[address] [facility] Alkaline Phosphatase 115 42 - 121 unit/L LAB CHEMISTRY METHOD 02/22/2025 12:[address] [facility] Total Protein 6.8 6.0 - 8.0 g/dL LAB CHEMISTRY METHOD 02/22/2025 12:[address] [facility] Albumin 3.5 3.2 - 5.0 g/dL LAB CHEMISTRY METHOD 02/22/2025 12:[address] [facility] Total Bilirubin 0.3 0.0 - 1.4 mg/dL LAB CHEMISTRY METHOD 02/22/2025 12:[address] [facility] Blood Venous blood specimen / Unknown Venipuncture / Unknown 02/21/2025 11:01 PM EDT 02/21/2025 11:32 PM EDT Salvador Oleary MD LAB BLOOD ORDERABLES Final Result [facility] [place] ([facility] [address] [place] [address], from Last 3 Months Insurance [place]IC[place] Advance Directives * Full Code - Default (Latest Code Status on File) Date Activated Date Inactivated Comments 02/22/2025 3:56 AM 02/25/2025 12:50 PM This is order is used when code status has not been discussed with the patient, or code status is otherwise unknown/unconfirmed To update the patient's code status, place a code status order. Do not modify or discontinue any currently active code status orders. Care Teams Mailing Section Clerk Relationship Specialty Start Date End Date Physician, No Pcp PCP - General 02/22/25
[2025-03-08 08:16] LABS: Appearance Urine Clear; Glucose Urine UA Negative (Negative); PH 6.5 (5.0-9.0); Specific Gravity - Urine 1.020 (1.005-1.025); UMIC TRIGGER UACC YES
[2025-03-08 08:24] LABS: Alanine Aminotransferase 34 U/L (0-40); Albumin Level 4.0 g/dL (3.5-5.0); Alkaline Phosphatase 73 U/L (39-117); Anion Gap 14 (12-20); Aspartate Amino Transferase 81 U/L (5-37); Blood Urea Nitrogen 14 mg/dL (9-16); Calcium 9.1 mg/dL (8.4-10.2); Carbon Dioxide 25 mmol/L (22-29); Chloride 108 mmol/L (96-108); Creatinine Clr Calc Pharmacy 145.5; Estimated Glomerular Filt Rate > 60; Lipase 43 U/L (8-78); Magnesium 1.8 mg/dL (1.6-2.6); Potassium 3.1 mmol/L (3.3-5.1); Sodium 144 mmol/L (135-145); Total Protein 6.5 g/dL (6.5-8.0)
[2025-03-08] MEDS: Potassium Chloride ER 20 MEQ TAB.ER.PRT 40 MEQ PO (08:44)
--- NOTE | 2025-03-08 09:38 | PC.NURSE ---
Alert and oriented from home with complaints of left foot infection and ? of infected chronic sacral wounds. Patient reports chronic pain to wounds and poor appetite over last few days. States does not have much food at home because no one has dropped food for him. Denies SI/HI
[2025-03-08] MEDS: iohexoL 350 MG/ML 100 ML INFUS..BTL IV (10:51)
--- NOTE | 2025-03-08 11:44 | P.HPHOSP_ITS ---
History of Present Illness Date of Service: 03/08/25 Attending physician on admission: Pita Melgar Chief Complaint: Left foot pain, black stools Jean Roldan is a 40 years old man with past medical history significant for GBS, wheelchair-bound, right BKA, type 2 diabetes mellitus, chronic sacral ulcer, osteomyelitis, C diff infection, liver steatosis, ongoing alcohol abuse, PTSD and bipolar disorder presents to the emergency department complaining of worsening pain to the left foot and lower back. He reported chills and nausea but denied fever or events of vomiting. He also is complaining of black stools and epigastric/chest pain that has been going on for awhile. He denied history of GI bleeding. He did not report shortness on breath but mentioned he has been congested recently. He is not coughing. Did not report use of blood thinner or NSAIDs. He was recently diagnosed with alcohol withdrawal syndrome and was hospitalist for this. During this hospitalization patient was evaluated by vascular surgeon who recommended conservative management. In the ED, he was found to have normal vital signs. Blood workup showed no leukocytosis. Hemoglobin is 11.3 (it was 13.7 -February 18, 2025). Hematocrit is 32.9 platelets are normal. MCV is 86.8. There is no lactic acidosis. There is hypokalemia of 3.1. There are no other electrolyte imbalances. LFTs are unremarkable (except for elevated AST 81). CRP is 1.69. BUN is 14 and creatinine 0.85. CRP is elevateed (worsening 0.52 --> 1.69). Albumin, protein and lipase are normal. Urinalysis is only remarkable for proteinuria 1+. ETOH level < 10. Abdominal pelvic CT scan with contrast showed no contrast extravasation, there is cirrhosis of the liver with hepatic steatosis and splenomegaly, cholelithiasis, colonic diverticulosis without diverticulitis and bilateral decubitus ulcer overlying the ischial tuberosity and 1.6 cm left adrenal adenoma. ED tx: LR 1 L bolus, thiamine 200 mg, Protonix 40 mg IV ceftriaxone 1 g, vancomycin 1 g IV, potassium 40 mEq p.o., Dilaudid 2 mg IV total Review of Systems 2 Review of Systems: All 12 systems were reviewed and normal except as noted in HPI. [facility] Medical History Sacral decubitus ulcer Osteomyelitis of foot Decubitus ulcer Amputation of one or more toes Aftercare following right hip joint replacement surgery Bipolar disorder PTSD (post-traumatic stress disorder) Sacral decubitus ulcer Peripheral neuropathy Non-insulin dependent type 2 diabetes mellitus Guillain-[place] Surgical History Hx of laminectomy History of total hip replacement Hx of right BKA Social History Household Members: None Housing: Apartment Do you presently have visiting nurse or other home services: No Alcohol intake: current Alcohol intake frequency: a few times a week Alcohol type: hard liquor Comment: stand pivot to luz marina avila Patient Tobacco Use Status: Current everyday Tobacco user Tobacco use type: Cigarette Cigarette Packs Per Day: 1 Cigarettes Per Day: 20.0 Years Smoked: 29 years Smoked in Last 30 Days: Yes Second Hand Smoke Exposure: No Use of substances other than those prescribed or required for medical reasons: Yes Substance Use Type: Marijuana Advance Directives: No Advance Directives Information Provided: Yes Do you have a plan to hurt others: No Plan service: No Meds Allergies Allergy/AdvReac Type Severity Reaction Status Date / Time baclofen Allergy Hives Verified 03/08/25 07:25 escitalopram (From Lexapro) Allergy Vomiting Verified 03/08/25 07:25 lithium Allergy Unresponsiv Verified 03/08/25 07:25 e metformin Allergy Unknown Verified 03/08/25 07:25 morphine Allergy Hives Verified 03/08/25 07:25 sulfamethoxazole (From Allergy Hives Verified 03/08/25 07:25 Bactrim) trimethoprim (From Bactrim) Allergy Hives Verified 03/08/25 07:25 Active Medications: Current Medications Acetaminophen (Acetaminophen 325 Mg Tablet) 975 mg PO Q6H PRN PRN Reason: Pain, Mild 1-3,fever,headache Calcium Carbonate (Calcium Carbonate 750 Mg Tab.Chew) 750 mg PO Q4H PRN PRN Reason: Heartburn Hydromorphone HCl (Hydromorphone Hcl 1 Mg/Ml Syringe) 1 mg IVPUSH Q4H PRN; Protocol PRN Reason: Pain, Severe (Pain Scale 7-10) Vancomycin HCl 1,000 mg/ (Sodium Chloride) 270 mls @ 270 mls/hr IV ONCE ONE Stop: 03/08/25 12:20 Last Admin: 03/08/25 11:40 Dose: 270 mls/hr Lactated Ringer's (Lr) 1,000 mls @ 100 mls/hr IVCONT .Q10H [facility] Magnesium Hydroxide (Milk Of Magnesia 30 Ml Oral.Susp) 30 ml PO DAILY PRN PRN Reason: Constipation Melatonin (Melatonin 3 Mg Tablet) 6 mg PO BEDTIME PRN PRN Reason: Insomnia Sodium Chloride (0.9 % Sodium Chloride Flush 3 Ml Syringe) 3 ml IVFLUSH QSHIFT [facility] Home Medications ?Medication ?Instructions ?Recorded ?Confirmed ?Last Taken ?Type glipizide 5 mg tablet 2.5 mg PO BIDAC 02/02/2503/07/25 History pregabalin 225 mg capsule 225 mg PO BID 02/02/2503/0803/07/25 History quetiapine 300 mg tablet 300 mg PO BEDTIME 02/02/25 0 03/08/25 03/07/25 History atorvastatin 40 mg tablet 40 mg PO DAILY 03/08/2502/2003/07/25 History escitalopram oxalate 10 mg tablet 10 mg PO DAILY 03/0803/08/25 Unknown History folic acid 1 mg tablet 1 mg PO DAILY 03/08/2503/0803/07/25 History lamotrigine 25 mg tablet 25 mg PO DAILY 03/08/2502/2003/07/25 History lisinopril 5 mg tablet 5 mg PO DAILY 03/08/2503/0803/07/25 History Physical Exam 2 Vital Signs and Narrative: Vital Signs: Last Vital Signs Temp 98.1 F 03/08/25 10:50 Pulse 98 03/08/25 10:50 Resp 16 03/08/25 10:50 BP 130/86 03/08/25 10:50 Pulse Ox 99 03/08/25 10:50 O2 Del Method Room Air 03/08/25 10:50 BMI result Body Mass Index 31.2 Constitutional - Awake and Alert, No apparent distress HEENT - PERRLA, EOMI Heart - RRR, No murmurs Lungs - Normal lung expansion, Normal respiratory effort, No respiratory distress, CTA bilaterally Abdomen - NT / ND; +BS; No rebound or guarding Back - Sacral ulcer: yellowish material noted, no necrotic tissue. Extremities - Right BKA, Left foot: Edematous, erythematous. Third and 4th toes: dry ulcerations over the dorsum. Musculoskeletal - generalized atrophy Skin - Warm/Dry Neurological - Alert & oriented x3. Focal weakness grossly noted. Normal speech Psychological - Anxious affect Results Labs 03/08/25 13:12 03/08/25 07:54 Labs: Laboratory Results - last 24 hr 03/08/25 03/08/25 03/08/25 07:54 08:03 08:37 MCV 86.8 MCH 29.8 MCHC 34.3 RDW 16.3 H Plt Count 222 MPV 10.1 Immature Gran % (Auto) 0.6 H Neut % (Auto) 69.6 Lymph % (Auto) 23.2 Owen % (Auto) 5.2 Eos % (Auto) 0.9 Baso % (Auto) 0.5 Lymph # (Auto) 2.0 Owen # (Auto) 0.5 Eos # (Auto) 0.1 Baso # (Auto) 0.0 Abs Immat Gran (auto) 0.05 H Absolute Neuts (auto) 6.1 Absolute Nucleated RBC 0.000 Nucleated RBC % (auto) 0.0 Anion Gap 14 Estim Creat Clear Calc 145.5 Estimated GFR > 60 Random Glucose 126 H Lactic Acid 1.3 Calcium 9.1 D Magnesium 1.8 Total Bilirubin 0.6 Direct Bilirubin 0.3 AST 81 H ALT 34 Alkaline Phosphatase 73 C-Reactive Protein 1.69 H Total Protein 6.5 Albumin 4.0 Lipase 43 Urine Color Dark Yellow Urine Appearance Clear Urine pH 6.5 Ur Specific [place] 1.020 Urine Protein 30 (1+) H Urine Glucose (UA) Negative Urine Ketones Trace Urine Blood Negative Urine Nitrite Negative Ur Leukocyte Esterase Negative Urine RBC 0-2 Urine WBC 0-5 Ur Squamous Epith Cells 0-2 Urine Bacteria None Seen Hyaline Casts 0-2 Ethyl Alcohol < 10 Imaging Radiologist's Impressions: Impressions Foot X-Ray 03/08/25 07:34 IMPRESSION: 1. Stable chronic changes involving the left foot, without significant change from 02/02/2025. Given the appearance, cannot rule out infection involving the third digit proximal phalanx and PIP joint, although this is unchanged from the prior exams. 2. A large amount of hypertrophic bony spurring is present involving the dorsal calcaneus. 3. Soft tissues appear grossly normal without subcutaneous gas, significant swelling, or foreign body evident. Electronically signed by: Lei Cox MD 03/08/2025 08:59 AM EDT RP Abdomen/Pelvis CT 03/08/25 09:58 IMPRESSION: 1. No contrast extravasation is seen to suggest active GI bleeding. 2. Cirrhosis of the liver with hepatic steatosis and splenomegaly. 3. Cholelithiasis. Colonic diverticulosis without evidence of diverticulitis. 4. Bilateral decubitus ulcers overlying the ischial tuberosities. 5. 1.6 cm left adrenal adenoma. Electronically signed by: Arnie Crisostomo MD 03/08/2025 11:09 AM EDT RP Assessment and Plan (1) Anemia: Qualifiers: Anemia type: unspecified type Qualified Code(s): D64.9 - Anemia, unspecified Status: Acute (2) Cellulitis of left foot: Status: Acute Plan Jean Roldan is a 40 y/o PMHx significant for GBS, wheelchair-bound, right BKA liver steatosis + cirrhosis admitted with: Acute on chronic anemia in the setting of black stools. Admit to hospitalist service. NPO after midnight. IV fluids. Continue to monitor H&H and anemia workup. Continue Protonix 40 mg IV daily. Left foot cellulitis and chronic dry ulcer (3rd and 4th toes dorsum). Continue vancomycin. Start Zosyn 3.5375 mg IV every 6 hours. 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 ? Acute infection. Continue vancomycin and ceftriaxone. Wound care surgery consult. Type 2 diabetes mellitus. BG checks before meals at bedtime. Continue glipizide. Diabetic diet. Insulin sliding scale. Essential hypertension. Continue lisinopril. Mood disorder. Continue pregabalin, lamotrigine and escitalopram. Hyperlipidemia. Continue statin. History of alcohol abuse. Thiamine, folic acid and multivitamin. [facility] protocol. History of C diff. No diarrhea reported today. Code status: Full DVT prophylaxis: Start Lovenox if no acute GI bleeding. Patient will need hospitalization for at least 2 midnights for GI bleeding evaluation and treatmentl and left foot cellulitis treatment with IV antibiotics Quality Stroke Does the patient have a stroke diagnosis?: No VTE Prior VTE?: No VTE Risk Level:: Medical - moderate - high VTE Device Contraindication: Treatment Not Indicated VTE Drug Contraindication: Treatment Not Indicated
[2025-03-08] MEDS: Lactated Ringers 1,000 ML 100 ML IVCONT (12:46)
--- NOTE | 2025-03-08 12:58 | PC.NURSE ---
Spoke with pharmacy regarding thiamine 100mg stating okay to give even though patient had 200mg IV dose this AM.
[2025-03-08 13:26] LABS: Hematocrit 31.8 % (42.0-52.0); Hemoglobin 10.7 g/dl (14.0-18.0); Mean Corpuscular HGB Conc 33.6 g/dl (31.0-36.0); Mean Corpuscular Hemoglobin 29.8 pg (27.0-33.0); Mean Corpuscular Volume 88.6 fL (80.0-98.0); NRBC Abs Auto 0.000 X10*3/uL (0.0-0.012); NRBC Pct Auto 0.0 /100WBC (0.0-0.2); Platelet Count 201 X10*3/uL (160-400); Red Blood Count 3.59 X10*6/uL (4.60-5.80); Reticulocytes Absolute 0.056 X10*6/uL (0.026-0.095); White Blood Count 6.3 X10*3/uL (4.8-10.8)
[2025-03-08 13:29] LABS: INTERNATIONAL NORM RATIO 1.4 (0.9-1.1); Prothrombin Time 15.9 SEC (10.9-12.4)
[2025-03-08] MEDS: Thiamine HCL 100 MG in 0.9 % Sodium Chloride 100 ML 202 MG IV (13:31)
--- NOTE | 2025-03-08 13:32 | PM.CNGS ---
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 He is admitted for lactic acidosis likely due to call intoxication with poor oral intake General surgery was consulted because of his heel decubitus ulcer. He does have a known history of chronic decubitus ulcers. He has wheelchair-bound and says he has had this for many years. He has a BKA on the right leg what he described as a progressive Pseudomonas infection of the foot last year in [facility]. He has multiple amputation of the toe on the left side as well from before. Review of Systems Constitutional: Constitutional: Denies fever(s) Cardiovascular: Cardiovascular: Denies chest pain Respiratory: Respiratory: Denies cough Gastrointestinal: Gastrointestinal: Denies abdominal pain Genitourinary: Genitourinary: Denies difficulty urinating Musculoskeletal: Comments: Has BKA on the right, wheelchair-bound [facility] Past Medical History Medical History Sacral decubitus ulcer Osteomyelitis of foot Decubitus ulcer Amputation of one or more toes Aftercare following right hip joint replacement surgery Bipolar disorder PTSD (post-traumatic stress disorder) Sacral decubitus ulcer Peripheral neuropathy Non-insulin dependent type 2 diabetes mellitus Guillain-[place] Surgical History Surgical History Hx of laminectomy History of total hip replacement Hx of right BKA Social History Social History Household Members: None Housing: House Are you a primary nurse care manager to a significant other at home: No Do you presently have visiting nurse or other home services: No Alcohol intake: current Alcohol intake frequency: 3 or more drinks per day Alcohol type: hard liquor Comment: stand pivot to luz marina avila Patient Tobacco Use Status: Current everyday Tobacco user Tobacco use type: Cigarette Cigarette Packs Per Day: 1 Cigarettes Per Day: 3 Years Smoked: 29 years Second Hand Smoke Exposure: No Substance Use Type: Marijuana service: No Meds Allergies Allergy/AdvReac Type Severity Reaction Status Date / Time baclofen Allergy Hives Verified 03/08/25 07:25 escitalopram (From Lexapro) Allergy Vomiting Verified 03/08/25 07:25 lithium Allergy Unresponsiv Verified 03/08/25 07:25 e metformin Allergy Unknown Verified 03/08/25 07:25 morphine Allergy Hives Verified 03/08/25 07:25 sulfamethoxazole (From Allergy Hives Verified 03/08/25 07:25 Bactrim) trimethoprim (From Bactrim) Allergy Hives Verified 03/08/25 07:25 Active Medications: Current Medications Acetaminophen (Acetaminophen 325 Mg Tablet) 975 mg PO Q6H PRN PRN Reason: Pain, Mild 1-3,fever,headache Calcium Carbonate (Calcium Carbonate 750 Mg Tab.Chew) 750 mg PO Q4H PRN PRN Reason: Heartburn Dextrose (Dextrose 50 % 25 Gm/50 Ml Syringe) 25 gm IVPUSH Q15M PRN; Protocol PRN Reason: per Hypoglycemia Standing Ord. Glucose (Glucose Gel 15 Gm Gel..Gram.) 15 gm PO Q15M PRN; Protocol PRN Reason: per Hypoglycemia Standing Ord. Hydromorphone HCl (Hydromorphone Hcl 1 Mg/Ml Syringe) 1 mg IVPUSH Q4H PRN; Protocol PRN Reason: Pain, Severe (Pain Scale 7-10) Last Admin: 03/08/25 11:44 Dose: 1 mg Lactated Ringer's (Lr) 1,000 mls @ 100 mls/hr IVCONT .Q10H [facility] Last Admin: 03/08/25 12:46 Dose: 100 mls/hr Piperacillin Sod/Tazobactam (Sod 3.375 gm/ Sodium Chloride) 50 mls @ 100 mls/hr IV Q6H [facility] Insulin Human Lispro (Insulin Lispro 100 Unit/Ml 3 Ml Vial) 0 unit SUBCUT QIDACHS [facility]; Protocol Magnesium Hydroxide (Milk Of Magnesia 30 Ml Oral.Susp) 30 ml PO DAILY PRN PRN Reason: Constipation Melatonin (Melatonin 3 Mg Tablet) 6 mg PO BEDTIME PRN PRN Reason: Insomnia Pantoprazole Sodium (Pantoprazole Sodium 40 Mg/10 Ml Vial) 40 mg IVPUSH Q12H [facility] Pharmacy Consult (Consult Rx Vancomycin Dosing) 1 each MISCELLANE DAILY PRN PRN Reason: Consult order Sodium Chloride (0.9 % Sodium Chloride Flush 3 Ml Syringe) 3 ml IVFLUSH QSHIFT [facility] Home Medications ?Medication ?Instructions ?Recorded ?Confirmed ?Last Taken ?Type glipizide 5 mg tablet 2.5 mg PO BIDAC 02/02/25 03/08/25 03/07/25 History pregabalin 225 mg capsule 225 mg PO BID 02/02/25 03/08/25 03/07/25 History quetiapine 300 mg tablet 300 mg PO BEDTIME 02/02/25 03/08/25 03/07/25 History atorvastatin 40 mg tablet 40 mg PO DAILY 03/08/25 03/08/25 03/07/25 History escitalopram oxalate 10 mg tablet 10 mg PO DAILY 03/08/25 03/08/25 Unknown History folic acid 1 mg tablet 1 mg PO DAILY 03/08/25 03/08/25 03/07/25 History lamotrigine 25 mg tablet 25 mg PO DAILY 03/08/25 03/08/25 03/07/25 History lisinopril 5 mg tablet 5 mg PO DAILY 03/08/25 03/08/25 03/07/25 History Physical Exam Vital Signs: Vital Signs: Last Vital Signs Temp 98.1 F 03/08/25 10:50 Pulse 98 03/08/25 10:50 Resp 16 03/08/25 10:50 BP 130/86 03/08/25 10:50 Pulse Ox 99 03/08/25 10:50 O2 Del Method Room Air 03/08/25 10:50 BMI result Body Mass Index 31.2 Const: Other: Answers questions well General: comfortable and no acute distress Resp: Effort & Inspection: normal respiratory effort Cardio: Rate: regular rate GI: Palpation (GI): Soft to palpation Back/Spine/Pelvis: Other: Diffuse redness of the entire buttocks on both the left and right side, as well as the sacrococcygeal area, consistent with stage I this ulcer, along with a small open wound in the coccygeal area, about 1 cm in diameter, with thin fibrinous exudates, consistent with a stage II ulcer Extrem: Other: BKA on the right, without ulcers Toe amputations on the left without ulcers Results Labs 03/09/25 05:35 03/09/25 05:35 Labs: Abnormal lab results 03/08/25 03/08/25 03/08/25 Range/Units 07:54 08:03 13:12 RBC 3.79 L 3.59 L (4.60-5.80) X10*6/uL Hgb 11.3 L 10.7 L (14.0-18.0) g/dl Hct 32.9 L D 31.8 L (42.0-52.0) % RDW 16.3 H (11.0-16.0) % Immature Gran % (Auto) 0.6 H (0.0-0.4) % Abs Immat Gran (auto) 0.05 H (0.00-0.03) X10*3/uL Immature Retic Fraction 16.9 H (2.3-13.4) % Retic Hgb Equivalent 28.9 L (30.0-35.0) pg PT 15.9 H (10.9-12.4) SEC INR 1.4 H (0.9-1.1) Potassium 3.1 L (3.3-5.1) mmol/L Random Glucose 126 H (60-115) mg/dL AST 81 H (5-37) U/L C-Reactive Protein 1.69 H (< or = 0.50) mg/dL Urine Protein 30 (1+) H (Neg-Trace) mg/dL Short CBC 03/08/25 03/08/25 Range/Units 07:54 13:12 WBC 8.7 6.3 (4.8-10.8) X10*3/uL Hgb 11.3 L 10.7 L (14.0-18.0) g/dl Hct 32.9 L D 31.8 L (42.0-52.0) % Plt Count 222 201 (160-400) X10*3/uL BMP 03/08/25 07:54 Sodium 144 Potassium 3.1 L Chloride 108 Carbon Dioxide 25 BUN 14 Creatinine 0.85 Calcium 9.1 D Liver Function 03/08/25 Range/Units 07:54 Total Bilirubin 0.6 (0.0-1.0) mg/dL Direct Bilirubin 0.3 (0.0-0.5) mg/dL AST 81 H (5-37) U/L ALT 34 (0-40) U/L Alkaline Phosphatase 73 (39-117) U/L Albumin 4.0 (3.5-5.0) g/dL Urine 03/08/25 Range/Units 08:03 Urine Color Dark Yellow Urine Appearance Clear Urine pH 6.5 (5.0-9.0) Ur Specific [place] 1.020 (1.005-1.025) Urine Protein 30 (1+) H (Neg-Trace) mg/dL Urine Glucose (UA) Negative (Negative) mg/dL All other labs normal. Assessment and Plan (1) Sacral decubitus ulcer: Status: Acute He has diffuse redness of the buttocks and sacrococcygeal area consistent with sacral decubitus ulcer, stage I because of his being wheelchair-bound. There has a small area of skin breakdown he coccygeal region, with some fibrinous debris, about 1 by 1 cm in size., consistent with a stage II ulcer. There is no area of necrosis or gangrene. I would recommend applying silver alginate dressings to this open area. With regards to the rest of this buttocks, he has been advised to make sure that he does not stay on the wheelchair for extended periods of time, and to do regular positioned changes. He does not seem to require debridement currently I would also recommend having the wound care nurse Benita evaluate him as well. He is being admitted to the hospitalist service in view of his lactic acidosis. He was brought to the ER because of alcohol intoxication. Procedures Date of Service Date of Service: 03/09/25
[2025-03-08 13:44] LABS: Iron 146 mcg/dL (45-160); Percent Iron Saturation 52 % (15-50); Total Iron Binding Capacity 283 mcg/dL (228-428); Unsaturated Iron Binding 137 ug/dL
[2025-03-08 13:59] LABS: Ferritin 74 ng/mL (20-250)
--- NOTE | 2025-03-08 14:10 | PC.NURSE ---
report given to TIMO Yoder pt to be transported to [place] [id number]
[2025-03-08 14:13] LABS: Folate 8.9 ng/mL (> or = 4.0); Vitamin B12 311 pg/mL (200-900)
--- NOTE | 2025-03-08 14:14 | PHA.MEDREC ---
Pharmacy Consult ? Medication Reconciliation Pharmacy has completed the medication reconciliation. Spoke with patient in the ED. Patient knew all medications. patient states he is taking both lisinopril and atorvastatin but has not filled at the pharmacy since 07/31/24 for 90 day supply. Patient is no longer taking Oxycodone, lexapro, trazodone, or Morphine (hives).
--- NOTE | 2025-03-08 14:32 | PC.NURSE ---
IV dressing replaced on r medial bicep IV site
--- NOTE | 2025-03-08 14:41 | P.CNGI_ITS ---
History of Present Illness Data of Consult Service Date: 03/08/25 Requesting physician: Pita Melgar Primary Care Provider: None Physician HPI Reason for consult: Anemia, black stool 40 YM with GBS, wheelchair-bound, right BKA, type 2 diabetes mellitus, chronic sacral ulcer, osteomyelitis, C diff infection, liver steatosis, ongoing alcohol abuse, PTSD and bipolar disorder seen at [facility] on 03/08/25 complaining of worsening pain to the left foot and lower back. GI consulted since he complained of black stools, epigastric/chest pain for the past 3-4 days. My stomach is a mess Pt notes he has been having 8 to 10 BMs a day associated with urgency and sometimes fecal incontinence. He complains of constant upper and central abdominal pain for the past 3 days. Pain is worse with drinking hot beverages and better after eating frozen foods He states he has not had any solid food for the past 5 days. Pt reported chills and nausea and denied heartburn, dysphagia, fever or events of vomiting. He admits to a hx of PUD and denies GI bleeding in the past. He did not report shortness on breath but mentioned he has been congested recently. Pt denies use of blood thinner or NSAIDs. He was recently diagnosed with alcohol withdrawal syndrome and was hospitalized for this. During this hospitalization patient was evaluated by vascular surgeon who recommended conservative management. Pt reports having a diverting ileostomy in 2006 at [facility] followed by reversal of ileostomy with repair of hernia and mesh placement at ileostomy site in 2013 at [facility]. Pt reports his Dad (who was his primary caregiver) on December 29 and he has been binge drinking since his . He is also being evicted from his home. He stopped drinking 15 days ago. He has been smoking 1/2 PPD since age 12 and stopped smoking 15 days ago since he had no money to buy any cigarettes He worked in a [email or web address] company in the past. Pt has a brother in [place] and no family in the area. In the ED, he was found to have normal vital signs. Labs showed no leukocytosis. Hemoglobin is 11.3 (it was 13.7 -February 18, 2025). Hematocrit is 32.9 platelets are normal. There is no lactic acidosis. There is hypokalemia of 3.1. There are no other electrolyte imbalances. LFTs are unremarkable (except for elevated AST 81). CRP is 1.69. BUN is 14 and creatinine 0.85. CRP is elevated (worsening 0.52 --> 1.69). Albumin, protein and lipase are normal. Urinalysis is only remarkable for proteinuria 1+. ETOH level < 10. ED tx: LR 1 L bolus, thiamine 200 mg, Protonix 40 mg IV ceftriaxone 1 g, vancomycin 1 g IV, potassium 40 mEq p.o., Dilaudid 2 mg IV total 03/08/[address] SCAN SHOWED: 1. No contrast extravasation is seen to suggest active GI bleeding. 2. Cirrhosis of the liver with hepatic steatosis and splenomegaly. 3. Cholelithiasis. Colonic diverticulosis without evidence of diverticulitis. 4. Bilateral decubitus ulcers overlying the ischial tuberosities. 5. 1.6 cm left adrenal adenoma. Review of Systems 2 Review of Systems: Yes all other systems are reviewed and are negative [facility] Past Medical History Medical History Sacral decubitus ulcer Osteomyelitis of foot Decubitus ulcer Amputation of one or more toes Aftercare following right hip joint replacement surgery Bipolar disorder PTSD (post-traumatic stress disorder) Sacral decubitus ulcer Peripheral neuropathy Non-insulin dependent type 2 diabetes mellitus Guillain-[place] Surgical History Surgical History (Updated 03/19/25 @ 00:02 by Kanu Rodriguez) Hx of laminectomy History of total hip replacement Hx of right BKA Social History Social History Household Members: None Housing: House Are you a primary rn progressive care to a significant other at home: No Do you presently have visiting nurse or other home services: No Alcohol intake: current Alcohol intake frequency: 3 or more drinks per day Alcohol type: hard liquor Comment: stand pivot to luz marina avila Patient Tobacco Use Status: Current everyday Tobacco user Tobacco use type: Cigarette Cigarette Packs Per Day: 1 Cigarettes Per Day: 3 Years Smoked: 29 years Second Hand Smoke Exposure: No Substance Use Type: Marijuana service: No Meds Allergies Allergy/AdvReac Type Severity Reaction Status Date / Time baclofen Allergy Hives Verified 03/08/25 07:25 escitalopram (From Lexapro) Allergy Vomiting Verified 03/08/25 07:25 lithium Allergy Unresponsiv Verified 03/08/25 07:25 e metformin Allergy Unknown Verified 03/08/25 07:25 morphine Allergy Hives Verified 03/08/25 07:25 sulfamethoxazole (From Allergy Hives Verified 03/08/25 07:25 Bactrim) trimethoprim (From Bactrim) Allergy Hives Verified 03/08/25 07:25 Active Medications: Current Medications Acetaminophen (Acetaminophen 325 Mg Tablet) 975 mg PO Q6H PRN PRN Reason: Pain, Mild 1-3,fever,headache Atorvastatin Calcium (Atorvastatin Calcium 40 Mg Tablet) 40 mg PO DAILY [facility] Calcium Carbonate (Calcium Carbonate 750 Mg Tab.Chew) 750 mg PO Q4H PRN PRN Reason: Heartburn Dextrose (Dextrose 50 % 25 Gm/50 Ml Syringe) 25 gm IVPUSH Q15M PRN; Protocol PRN Reason: per Hypoglycemia Standing Ord. Escitalopram Oxalate (Escitalopram Oxalate 10 Mg Tablet) 10 mg PO DAILY [facility] Folic Acid (Folic Acid 1 Mg Tablet) 1 mg PO DAILY [facility] Glipizide (Glipizide 5 Mg Tablet) 2.5 mg PO BIDAC [facility] Glucose (Glucose Gel 15 Gm Gel..Gram.) 15 gm PO Q15M PRN; Protocol PRN Reason: per Hypoglycemia Standing Ord. Hydromorphone HCl (Hydromorphone Hcl 1 Mg/Ml Syringe) 1 mg IVPUSH Q4H PRN; Protocol PRN Reason: Pain, Severe (Pain Scale 7-10) Last Admin: 03/08/25 11:44 Dose: 1 mg Lactated Ringer's (Lr) 1,000 mls @ 100 mls/hr IVCONT .Q10H [facility] Last Admin: 03/08/25 12:46 Dose: 100 mls/hr Piperacillin Sod/Tazobactam (Sod 3.375 gm/ Sodium Chloride) 50 mls @ 100 mls/hr IV Q6H [facility] Last Infusion: 03/08/25 14:32 Dose: Infused Vancomycin HCl 1,000 mg/ (Sodium Chloride) 270 mls @ 270 mls/hr IV ONCE ONE Stop: 03/08/25 14:59 Insulin Human Lispro (Insulin Lispro 100 Unit/Ml 3 Ml Vial) 0 unit SUBCUT QIDACHS [facility]; Protocol Lamotrigine (Lamotrigine 25 Mg Tablet) 25 mg PO DAILY [facility] Lisinopril (Lisinopril 5 Mg Tablet) 5 mg PO DAILY [facility]; Protocol Magnesium Hydroxide (Milk Of Magnesia 30 Ml Oral.Susp) 30 ml PO DAILY PRN PRN Reason: Constipation Melatonin (Melatonin 3 Mg Tablet) 6 mg PO BEDTIME PRN PRN Reason: Insomnia Pantoprazole Sodium (Pantoprazole Sodium 40 Mg/10 Ml Vial) 40 mg IVPUSH Q12H [facility] Pharmacy Consult (Consult Rx Vancomycin Dosing) 1 each MISCELLANE DAILY PRN PRN Reason: Consult order Pregabalin (Pregabalin 75 Mg Capsule) 225 mg PO BID [facility] Quetiapine Fumarate (Quetiapine Fumarate 300 Mg Tablet) 300 mg PO BEDTIME [facility] Sodium Chloride (0.9 % Sodium Chloride Flush 3 Ml Syringe) 3 ml IVFLUSH QSHIFT [facility] Home Medications ?Medication ?Instructions ?Recorded ?Confirmed ?Last Taken ?Type glipizide 5 mg tablet 2.5 mg PO BIDAC 02/02/2503/07/25 History pregabalin 225 mg capsule 225 mg PO BID 02/02/2503/0803/07/25 History quetiapine 300 mg tablet 300 mg PO BEDTIME 02/02/25 0 03/08/25 03/07/25 History atorvastatin 40 mg tablet 40 mg PO DAILY 03/08/2502/2003/07/25 History escitalopram oxalate 10 mg tablet 10 mg PO DAILY 03/0803/08/25 Unknown History folic acid 1 mg tablet 1 mg PO DAILY 03/08/2503/0803/07/25 History lamotrigine 25 mg tablet 25 mg PO DAILY 03/08/2502/2003/07/25 History lisinopril 5 mg tablet 5 mg PO DAILY 03/08/2503/0803/07/25 History Physical Exam 2 Vital Signs: Vital Signs: Last Vital Signs Temp 98.1 F 03/08/25 10:50 Pulse 98 03/08/25 10:50 Resp 16 03/08/25 10:50 BP 130/86 03/08/25 10:50 Pulse Ox 99 03/08/25 10:50 O2 Del Method Room Air 03/08/25 10:50 BMI result Body Mass Index 31.2 Const: General: no acute distress and ill appearing chronically Nutritional Appearance: obese Orientation/consciousness: patient oriented x3 L imitations: wheelchair HEENT: Head: Yes normal to inspection Ears: hearing grossly normal bilaterally Eyes: Sclerae: sclerae normal Pupils: Equal, round and reactive pupils present Neck: Neck: Yes normal visual inspection Chest: Chest palpation & inspection: normal inspection of the chest Resp: Effort & Inspection: normal respiratory effort Auscultation: clear to auscultation bilaterally Cardio: Palpation: normal PMI Rate: regular rate Rhythm: regular rhythm Heart sounds: S1 normal heart sound present, S2 normal heart sound present and no murmurs GI: Inspection: Yes scar (RLQ at the site of past diverting ileostomy) P alpation (GI): Soft to palpation, Tenderness to palpation present (GI) (mild epigastric tenderness) and No hepatosplenomegaly present Auscultation: normal bowel sounds Rectal Exam - Male: Yes deferred Skin: General skin exam: no rashes or lesions noted Neuro: General: patient oriented x3, gait normal and moves all extremities Cranial nerves: Yes Equal, round and reactive pupils present Psych: Appearance: grossly normal Mental Status: mental status grossly normal Results Labs 03/11/25 05:53 03/11/25 05:53 Labs: Short CBC 03/08/25 03/08/25 Range/Units 07:54 13:12 WBC 8.7 6.3 (4.8-10.8) X10*3/uL Hgb 11.3 L 10.7 L (14.0-18.0) g/dl Hct 32.9 L D 31.8 L (42.0-52.0) % Plt Count 222 201 (160-400) X10*3/uL BMP 03/08/25 07:54 Sodium 144 Potassium 3.1 L Chloride 108 Carbon Dioxide 25 BUN 14 Creatinine 0.85 Calcium 9.1 D Liver Function 03/08/25 Range/Units 07:54 Total Bilirubin 0.6 (0.0-1.0) mg/dL Direct Bilirubin 0.3 (0.0-0.5) mg/dL AST 81 H (5-37) U/L ALT 34 (0-40) U/L Alkaline Phosphatase 73 (39-117) U/L Albumin 4.0 (3.5-5.0) g/dL Urine 03/08/25 Range/Units 08:03 Urine Color Dark Yellow Urine Appearance Clear Urine pH 6.5 (5.0-9.0) Ur Specific [place] 1.020 (1.005-1.025) Urine Protein 30 (1+) H (Neg-Trace) mg/dL Urine Glucose (UA) Negative (Negative) mg/dL Assessment and Plan (1) Upper gastrointestinal bleed: Status: Acute Plan 40 YM with GBS, wheelchair-bound, right BKA, type 2 diabetes mellitus, chronic sacral ulcer, osteomyelitis, C diff infection, liver cirrhosis, ongoing alcohol abuse, PTSD and bipolar disorder admitted to [facility] on 03/08/25 complaining of worsening pain to the left foot and lower back. GI consulted since he complained of black stools, epigastric/chest pain for the past 3-4 days. Pt denies use of blood thinner or NSAIDs. ETOH level < 10. Black stools with anemia likely due to UGI source of blood loss - PUD, esophageal varices, erosive esophagitis, upper GI AVM or Dieulafoy's RECOMMENDATIONS: 1. Agree with IV PPI, antiemetics, pain medications and IV antibiotics (for sacral decubitis ulcer and left foot cellulitis). 2. Follow CBC twice daily x 24 hrs and transfuse prn 3. Further evaluation with an upper endoscopy scheduled on 03/09/2025. EGD procedure and potential complications including bleeding, perforation, reaction to anesthetic and aspiration were reviewed with the patient 4. Needs ETOH rehab ADDENDUM[facility] 40 [facility] PMHx significant for GBS, wheelchair-bound, right BKA liver steatosis + cirrhosis here with melana and enemia Acute GI bleed, H/H stable EGD 03/09: Esophageal ulcer, gastritis, portal gastropathy and duodenitis Plan for clear liquid diet and GoLYTELY prep on 03/11 and colonoscopy on 03/12 Pt signed against medical advise and advised to have colonoscoy done on outpatient basis Prescribed Prilosec Procedures Date of Service Date of Service: 03/24/25
[2025-03-08] MEDS: 0.9 % Sodium Chloride Flush 3 ML SYRINGE IVFLUSH (16:12)
--- NOTE | 2025-03-08 16:42 | PHA.PROG ---
Admission Date/Time: March 08, 2025 11:40 Indication: skin + skin structure Weight in k.4 kg Adjusted body weight in Kg: Shunk body weight in Kg: Obesity Dosing Indication % IBW: BMI 31.2 Serum Creatinine - Last 168 Hours 03/08/25 07:54 Creatinine 0.85 Estimated CrCl and GFR - Last 168 Hours 03/08/25 07:54 Estim Creat Clear Calc 145.5 Estimated GFR > 60 Vancomycin Loading Dose: 1000mg X2 Current Vancomycin Dosing Regimen: 750 mg Q8H Vancomycin Monitoring using AUC goal of 400 - 600 range with trough as surrogate marker: 415 Date and Time for next Vancomycin Level to be drawn: 03/09 @1500 Pharmacist Comments on Vancomycin Plan: Pt loaded wrong so given additional gram. starting off with 750mg Q8H because pt got 1 gram doses within 6 hours. Predicted trough: 14.2. Vancomycin dosing will take advantage of [employer] as a clinical decision support tool that uses Bayesian modeling to calculate individual patient's pharmacokinetic parameters and forecast the patient's drug concentration time course with the target goal AUC 24 range of 400 - 600 mg/L/hr.
[2025-03-08 17:03] LABS: Glucose, Whole Blood 94 mg/dL (60-115)
[2025-03-08 17:54] LABS: Cannabinoid Screen Urine Not Detected (Not Detect)
[2025-03-08] MEDS: PHENobarbitaL sodium 130 MG/ML IM ONCE 320 MG IM (18:06)
[2025-03-08 19:54] LABS: Glucose, Whole Blood 96 mg/dL (60-115)
[2025-03-08] MEDS: PHENobarbitaL sodium 130 MG/ML VIAL IM Q3Hx2 240 MG IM (20:33)
[2025-03-09] VITALS (11 sets, daily range): BP systolic 116–155; BP diastolic 57–92; PULSE 75–100; RESP 14–20; TEMP 36.1–36.8; O2SAT 94–97; BMI 31.1
[2025-03-09] MEDS: PHENobarbitaL sodium 130 MG/ML VIAL IM Q3Hx2 240 MG IM (00:16)
--- NOTE | 2025-03-09 02:06 | PC.NURSE ---
Patient had sandwich just before midnight, and made NPO, all food and drink removed from the bedside. CIWA 0, incontinent small dark BM.
[2025-03-09] MEDS: Lactated Ringers 1,000 ML 100 ML IVCONT (02:37)
[2025-03-09 06:31] LABS: Hematocrit 29.8 % (42.0-52.0); Hemoglobin 10.1 g/dl (14.0-18.0); Mean Corpuscular HGB Conc 33.9 g/dl (31.0-36.0); Mean Corpuscular Hemoglobin 29.9 pg (27.0-33.0); Mean Corpuscular Volume 88.2 fL (80.0-98.0); NRBC Abs Auto 0.000 X10*3/uL (0.0-0.012); NRBC Pct Auto 0.0 /100WBC (0.0-0.2); Platelet Count 176 X10*3/uL (160-400); Red Blood Count 3.38 X10*6/uL (4.60-5.80); White Blood Count 4.2 X10*3/uL (4.8-10.8)
[2025-03-09 06:47] LABS: Anion Gap 11 (12-20); Blood Urea Nitrogen 12 mg/dL (9-16); Calcium 8.9 mg/dL (8.4-10.2); Carbon Dioxide 27 mmol/L (22-29); Chloride 117 mmol/L (96-108); Creatinine Clr Calc Pharmacy 156.3; Estimated Glomerular Filt Rate > 60; Magnesium 1.9 mg/dL (1.6-2.6); Potassium 3.9 mmol/L (3.3-5.1); Sodium 151 mmol/L (135-145)
--- NOTE | 2025-03-09 07:20 | P.PNGS_ITS ---
Subjective Subjective Date of Service: 03/09/25 <Harley Dan PA-C - Last Filed: 03/09/25 13:08> 03/09/25 <Jose Elias Sellers MD - Last Filed: 03/09/25 15:41> Interval history: reports his sacral wound is more painful today. denies fever/chills. reports some pain in the foot, still feels warm. <Harley Dan PA-C - Last Filed: 03/09/25 13:08> Physical Exam 2 Vital Signs: Vital Signs: Last Vital Signs Temp 98.3 F 03/09/25 04:00 Pulse 77 03/09/25 04:00 Resp 18 03/09/25 04:00 BP 130/72 03/09/25 04:00 Pulse Ox 95 03/09/25 04:00 O2 Del Method Room Air 03/09/25 00:55 BMI result Body Mass Index 31.1 <Harley Dan PA-C - Last Filed: 03/09/25 13:08> Objective Data Active Medications Acetaminophen (Acetaminophen 325 Mg Tablet) 975 mg PO Q6H PRN PRN Reason: Pain, Mild 1-3,fever,headache Atorvastatin Calcium (Atorvastatin Calcium 40 Mg Tablet) 40 mg PO DAILY [facility] Calcium Carbonate (Calcium Carbonate 750 Mg Tab.Chew) 750 mg PO Q4H PRN PRN Reason: Heartburn Dextrose (Dextrose 50 % 25 Gm/50 Ml Syringe) 25 gm IVPUSH Q15M PRN; Protocol PRN Reason: per Hypoglycemia Standing Ord. Escitalopram Oxalate (Escitalopram Oxalate 10 Mg Tablet) 10 mg PO DAILY [facility] Folic Acid (Folic Acid 1 Mg Tablet) 1 mg PO DAILY [facility] Glipizide (Glipizide 5 Mg Tablet) 2.5 mg PO BIDAC [facility] Last Admin: 03/08/25 18:06 Dose: 2.5 mg Documented By: ROSA Glucose (Glucose Gel 15 Gm Gel..Gram.) 15 gm PO Q15M PRN; Protocol PRN Reason: per Hypoglycemia Standing Ord. Hydromorphone HCl (Hydromorphone Hcl 1 Mg/Ml Syringe) 1 mg IVPUSH Q4H PRN; Protocol PRN Reason: Pain, Severe (Pain Scale 7-10) Last Admin: 03/09/25 01:00 Dose: 1 mg Documented By: JEREMY Lactated Ringer's (Lr) 1,000 mls @ 100 mls/hr IVCONT .Q10H [facility] Last Admin: 03/09/25 02:37 Dose: 100 mls/hr Documented By: JEREMY Piperacillin Sod/Tazobactam (Sod 3.375 gm/ Sodium Chloride) 50 mls @ 100 mls/hr IV Q6H [facility] Last Infusion: 03/09/25 03:14 Dose: Infused Documented By: JEREMY Vancomycin HCl 750 mg/ Sodium (Chloride) 265 mls @ 265 mls/hr IV Q8H [facility] Last Infusion: 03/09/25 02:24 Dose: Infused Documented By: JEREMY Insulin Human Lispro (Insulin Lispro 100 Unit/Ml 3 Ml Vial) 0 unit SUBCUT QIDACHS [facility]; Protocol Last Admin: 03/08/25 20:03 Dose: Not Given Documented By: SONG Non-Admin Reason: No Insulin Coverage Lamotrigine (Lamotrigine 25 Mg Tablet) 25 mg PO DAILY [facility] Lisinopril (Lisinopril 5 Mg Tablet) 5 mg PO DAILY [facility]; Protocol Magnesium Hydroxide (Milk Of Magnesia 30 Ml Oral.Susp) 30 ml PO DAILY PRN PRN Reason: Constipation Melatonin (Melatonin 3 Mg Tablet) 6 mg PO BEDTIME PRN PRN Reason: Insomnia Pantoprazole Sodium (Pantoprazole Sodium 40 Mg/10 Ml Vial) 40 mg IVPUSH Q12H [facility] Last Admin: 03/08/25 20:32 Dose: 40 mg Documented By: SONG Pharmacy Consult (Consult Rx Vancomycin Dosing) 1 each MISCELLANE DAILY PRN PRN Reason: Consult order Pharmacy Consult (Consult Rx Etoh Phenob Im/Po) 1 each MISCELLANE ONCE PRN; Protocol PRN Reason: Consult order Phenobarbital (Phenobarbital 30 Mg Tablet) 60 mg PO BID [facility] Stop: 03/10/25 21:01 Phenobarbital (Phenobarbital 30 Mg Tablet) 30 mg PO BID [facility] Stop: 03/12/25 21:01 Phenobarbital (Phenobarbital 30 Mg Tablet) 30 mg PO DAILY [facility] Stop: 03/14/25 09:01 Pregabalin (Pregabalin 75 Mg Capsule) 225 mg PO BID [facility] Last Admin: 03/08/25 20:34 Dose: 225 mg Documented By: SONG Quetiapine Fumarate (Quetiapine Fumarate 300 Mg Tablet) 300 mg PO BEDTIME [facility] Last Admin: 03/08/25 20:34 Dose: 300 mg Documented By: SONG Sodium Chloride (0.9 % Sodium Chloride Flush 3 Ml Syringe) 3 ml IVFLUSH QSHIFT [facility] Last Admin: 03/09/25 00:00 Dose: Not Given Documented By: JEREMY Non-Admin Reason: IV Running <Harley Dan PA-C - Last Filed: 03/09/25 13:08> Labs CBC & Chem 7: 03/09/25 05:35 03/09/25 05:35 <Harley Dan PA-C - Last Filed: 03/09/25 13:08> Labs: Laboratory Results - last 24 hr 03/08/25 03/08/25 03/08/25 07:54 08:03 08:37 MCV 86.8 MCH 29.8 MCHC 34.3 RDW 16.3 H Plt Count 222 MPV 10.1 Immature Gran % (Auto) 0.6 H Neut % (Auto) 69.6 Lymph % (Auto) 23.2 [place] % (Auto) 5.2 Eos % (Auto) 0.9 Baso % (Auto) 0.5 Lymph # (Auto) 2.0 [place] # (Auto) 0.5 Eos # (Auto) 0.1 Baso # (Auto) 0.0 Abs Immat Gran (auto) 0.05 H Absolute Neuts (auto) 6.1 Absolute Nucleated RBC 0.000 Nucleated RBC % (auto) 0.0 Absolute Retic Percent Retic Immature Retic Fraction Retic Hgb Equivalent PT INR Anion Gap 14 Estim Creat Clear Calc 145.5 Estimated GFR > 60 POC Glucose Random Glucose 126 H Lactic Acid 1.3 Calcium 9.1 D Magnesium 1.8 Iron TIBC % Saturation Unsat Iron Binding Ferritin Total Bilirubin 0.6 Direct Bilirubin 0.3 AST 81 H ALT 34 Alkaline Phosphatase 73 C-Reactive Protein 1.69 H Total Protein 6.5 Albumin 4.0 Lipase 43 Vitamin B12 Folate Urine Color Dark Yellow Urine Appearance Clear Urine pH 6.5 Ur Specific [place] 1.020 Urine Protein 30 (1+) H Urine Glucose (UA) Negative Urine Ketones Trace Urine Blood Negative Urine Nitrite Negative Ur Leukocyte Esterase Negative Urine RBC 0-2 Urine WBC 0-5 Ur Squamous Epith Cells 0-2 Urine Bacteria None Seen Hyaline Casts 0-2 Urine Opiates Screen Not Detected Ur Buprenorphine Scrn Not Detected Ur Oxycodone Screen Not Detected Urine Methadone Screen Not Detected Urine Fentanyl Screen Not Detected Ur Barbiturates Screen POSITIVE H Ur Phencyclidine Scrn Not Detected Ur Amphetamines Screen Not Detected U Benzodiazepines Scrn POSITIVE H Urine Cocaine Screen Not Detected U Marijuana (THC) Screen Not Detected Ethyl Alcohol < 10 03/08/25 03/08/25 03/08/25 13:12 17:00 19:49 MCV 88.6 MCH 29.8 MCHC 33.6 RDW 15.9 Plt Count 201 MPV 10.6 Immature Gran % (Auto) Neut % (Auto) Lymph % (Auto) [place] % (Auto) Eos % (Auto) Baso % (Auto) Lymph # (Auto) [place] # (Auto) Eos # (Auto) Baso # (Auto) Abs Immat Gran (auto) Absolute Neuts (auto) Absolute Nucleated RBC 0.000 Nucleated RBC % (auto) 0.0 Absolute Retic 0.056 Percent Retic 1.6 Immature Retic Fraction 16.9 H Retic Hgb Equivalent 28.9 L PT 15.9 H INR 1.4 H Anion Gap Estim Creat Clear Calc Estimated GFR POC Glucose 94 96 Random Glucose Lactic Acid Calcium Magnesium Iron 146 TIBC 283 % Saturation 52 H Unsat Iron Binding 137 Ferritin 74 Total Bilirubin Direct Bilirubin AST ALT Alkaline Phosphatase C-Reactive Protein Total Protein Albumin Lipase Vitamin B12 311 Folate 8.9 Urine Color Urine Appearance Urine pH Ur Specific [place] Urine Protein Urine Glucose (UA) Urine Ketones Urine Blood Urine Nitrite Ur Leukocyte Esterase Urine RBC Urine WBC Ur Squamous Epith Cells Urine Bacteria Hyaline Casts Urine Opiates Screen Ur Buprenorphine Scrn Ur Oxycodone Screen Urine Methadone Screen Urine Fentanyl Screen Ur Barbiturates Screen Ur Phencyclidine Scrn Ur Amphetamines Screen U Benzodiazepines Scrn Urine Cocaine Screen U Marijuana (THC) Screen Ethyl Alcohol 03/09/25 05:35 MCV 88.2 MCH 29.9 MCHC 33.9 RDW 15.9 Plt Count 176 MPV 10.6 Immature Gran % (Auto) Neut % (Auto) Lymph % (Auto) [place] % (Auto) Eos % (Auto) Baso % (Auto) Lymph # (Auto) [place] # (Auto) Eos # (Auto) Baso # (Auto) Abs Immat Gran (auto) Absolute Neuts (auto) Absolute Nucleated RBC 0.000 Nucleated RBC % (auto) 0.0 Absolute Retic Percent Retic Immature Retic Fraction Retic Hgb Equivalent PT INR Anion Gap 11 L Estim Creat Clear Calc 156.3 Estimated GFR > 60 POC Glucose Random Glucose 128 H Lactic Acid Calcium 8.9 Magnesium 1.9 Iron TIBC % Saturation Unsat Iron Binding Ferritin Total Bilirubin Direct Bilirubin AST ALT Alkaline Phosphatase C-Reactive Protein Total Protein Albumin Lipase Vitamin B12 Folate Urine Color Urine Appearance Urine pH Ur Specific [place] Urine Protein Urine Glucose (UA) Urine Ketones Urine Blood Urine Nitrite Ur Leukocyte Esterase Urine RBC Urine WBC Ur Squamous Epith Cells Urine Bacteria Hyaline Casts Urine Opiates Screen Ur Buprenorphine Scrn Ur Oxycodone Screen Urine Methadone Screen Urine Fentanyl Screen Ur Barbiturates Screen Ur Phencyclidine Scrn Ur Amphetamines Screen U Benzodiazepines Scrn Urine Cocaine Screen U Marijuana (THC) Screen Ethyl Alcohol <Harley Dan PA-C - Last Filed: 03/09/25 13:08> Procedures Date of Service Date of Service: 03/09/25 <Harley Dan PA-C - Last Filed: 03/09/25 13:08> 03/09/25 <Jose Elias Sellers MD - Last Filed: 03/09/25 15:41> Progress Note: A&P Assessment and plan (1) Cellulitis of left foot: Status: Acute <Harley Dan PA-C - Last Filed: 03/09/25 13:08> Assessment and Plan: Seen and examined independently Agree with note by PA <Jose Elias Sellers MD - Last Filed: 03/09/25 15:41> (2) Sacral decubitus ulcer: Status: Acute <Harley Dan PA-C - Last Filed: 03/09/25 13:08> Assessment and Plan: 40 year old male beign followed by general surgery for sacral and left foot wounds. he has a 1 cm open wound on the sacrum, stage 2 ulcer. We applied wet to dry yesterday. Patient also has multiple ulcers on his left 3rd and 4th toes with concern for osteomyelitis of the 3rd toe, along with cellulitis of the left foot. They are more superficial, we applied silver alginante yesteday. Patient would like to avoid amputation if possible. Patient having EGD this morning for possible GI bleed. continue abx plan to continue with wound care, sacral wound: medihoney covering wound, followed by silver alginate, covered with pink dressing can continue with daily dressing changes. Toe and knee wounds can use silver alginate, gauze and kerlix. frequent positional changes <Harley Dan PA-C - Last Filed: 03/09/25 13:08> Time Spent With Patient Time: Total time managing care of this patient today ____ minutes. <Harley Dan PA-C - Last Filed: 03/09/25 13:08> Quality Stroke Does the patient have a stroke diagnosis?: No <Harley Dan PA-C - Last Filed: 03/09/25 13:08> VTE Prior VTE?: No <Harley Dan PA-C - Last Filed: 03/09/25 13:08> VTE Risk Level:: Medical - moderate - high <Harley Dan PA-C - Last Filed: 03/09/25 13:08> VTE Device Contraindication: Treatment Not Indicated <Harley Dan PA-C - Last Filed: 03/09/25 13:08> VTE Drug Contraindication: Treatment Not Indicated <Harley Dan PA-C - Last Filed: 03/09/25 13:08>
[2025-03-09 07:23] LABS: Glucose, Whole Blood 130 mg/dL (60-115)
--- NOTE | 2025-03-09 07:27 | HO.PM.IMPN ---
Subjective Subjective Date of Service: 03/09/25 Interval History: f/u on anemia, acute blood loss, celulitis, possible infected sacral ulcer doing well with no new issues, awaiting EGD Physical Exam Vital Signs: Vital Signs: Last Vital Signs Temp 98.3 F 03/09/25 04:00 Pulse 77 03/09/25 04:00 Resp 18 03/09/25 04:00 BP 130/72 03/09/25 04:00 Pulse Ox 95 03/09/25 04:00 O2 Del Method Room Air 03/09/25 00:55 BMI result Body Mass Index 31.1 see exam and pics from 03/08 h & p Objective Data Active Medications Acetaminophen (Acetaminophen 325 Mg Tablet) 975 mg PO Q6H PRN PRN Reason: Pain, Mild 1-3,fever,headache Atorvastatin Calcium (Atorvastatin Calcium 40 Mg Tablet) 40 mg PO DAILY [facility] Calcium Carbonate (Calcium Carbonate 750 Mg Tab.Chew) 750 mg PO Q4H PRN PRN Reason: Heartburn Dextrose (Dextrose 50 % 25 Gm/50 Ml Syringe) 25 gm IVPUSH Q15M PRN; Protocol PRN Reason: per Hypoglycemia Standing Ord. Escitalopram Oxalate (Escitalopram Oxalate 10 Mg Tablet) 10 mg PO DAILY [facility] Folic Acid (Folic Acid 1 Mg Tablet) 1 mg PO DAILY [facility] Glipizide (Glipizide 5 Mg Tablet) 2.5 mg PO BIDAC [facility] Last Admin: 03/08/25 18:06 Dose: 2.5 mg Documented By: ROSA Glucose (Glucose Gel 15 Gm Gel..Gram.) 15 gm PO Q15M PRN; Protocol PRN Reason: per Hypoglycemia Standing Ord. Hydromorphone HCl (Hydromorphone Hcl 1 Mg/Ml Syringe) 1 mg IVPUSH Q4H PRN; Protocol PRN Reason: Pain, Severe (Pain Scale 7-10) Last Admin: 03/09/25 01:00 Dose: 1 mg Documented By: JEREMY Lactated Ringer's (Lr) 1,000 mls @ 100 mls/hr IVCONT .Q10H [facility] Last Admin: 03/09/25 02:37 Dose: 100 mls/hr Documented By: JEREMY Piperacillin Sod/Tazobactam (Sod 3.375 gm/ Sodium Chloride) 50 mls @ 100 mls/hr IV Q6H [facility] Last Infusion: 03/09/25 03:14 Dose: Infused Documented By: JEREMY Vancomycin HCl 750 mg/ Sodium (Chloride) 265 mls @ 265 mls/hr IV Q8H [facility] Last Infusion: 03/09/25 02:24 Dose: Infused Documented By: JEREMY Insulin Human Lispro (Insulin Lispro 100 Unit/Ml 3 Ml Vial) 0 unit SUBCUT QIDACHS [facility]; Protocol Last Admin: 03/08/25 20:03 Dose: Not Given Documented By: SONG Non-Admin Reason: No Insulin Coverage Lamotrigine (Lamotrigine 25 Mg Tablet) 25 mg PO DAILY [facility] Lisinopril (Lisinopril 5 Mg Tablet) 5 mg PO DAILY [facility]; Protocol Magnesium Hydroxide (Milk Of Magnesia 30 Ml Oral.Susp) 30 ml PO DAILY PRN PRN Reason: Constipation Melatonin (Melatonin 3 Mg Tablet) 6 mg PO BEDTIME PRN PRN Reason: Insomnia Pantoprazole Sodium (Pantoprazole Sodium 40 Mg/10 Ml Vial) 40 mg IVPUSH Q12H [facility] Last Admin: 03/08/25 20:32 Dose: 40 mg Documented By: SONG Pharmacy Consult (Consult Rx Vancomycin Dosing) 1 each MISCELLANE DAILY PRN PRN Reason: Consult order Pharmacy Consult (Consult Rx Etoh Phenob Im/Po) 1 each MISCELLANE ONCE PRN; Protocol PRN Reason: Consult order Phenobarbital (Phenobarbital 30 Mg Tablet) 60 mg PO BID [facility] Stop: 03/10/25 21:01 Phenobarbital (Phenobarbital 30 Mg Tablet) 30 mg PO BID [facility] Stop: 03/12/25 21:01 Phenobarbital (Phenobarbital 30 Mg Tablet) 30 mg PO DAILY [facility] Stop: 03/14/25 09:01 Pregabalin (Pregabalin 75 Mg Capsule) 225 mg PO BID [facility] Last Admin: 03/08/25 20:34 Dose: 225 mg Documented By: SONG Quetiapine Fumarate (Quetiapine Fumarate 300 Mg Tablet) 300 mg PO BEDTIME [facility] Last Admin: 03/08/25 20:34 Dose: 300 mg Documented By: SONG Sodium Chloride (0.9 % Sodium Chloride Flush 3 Ml Syringe) 3 ml IVFLUSH QSHIFT [facility] Last Admin: 03/09/25 00:00 Dose: Not Given Documented By: JEREMY Non-Admin Reason: IV Running Labs 03/09/25 05:35 03/09/25 05:35 Labs: Laboratory Results - last 24 hr 03/08/25 03/08/25 03/08/25 07:54 08:03 08:37 MCV 86.8 MCH 29.8 MCHC 34.3 RDW 16.3 H Plt Count 222 MPV 10.1 Immature Gran % (Auto) 0.6 H Neut % (Auto) 69.6 Lymph % (Auto) 23.2 [place] % (Auto) 5.2 Eos % (Auto) 0.9 Baso % (Auto) 0.5 Lymph # (Auto) 2.0 [place] # (Auto) 0.5 Eos # (Auto) 0.1 Baso # (Auto) 0.0 Abs Immat Gran (auto) 0.05 H Absolute Neuts (auto) 6.1 Absolute Nucleated RBC 0.000 Nucleated RBC % (auto) 0.0 Absolute Retic Percent Retic Immature Retic Fraction Retic Hgb Equivalent PT INR Anion Gap 14 Estim Creat Clear Calc 145.5 Estimated GFR > 60 POC Glucose Random Glucose 126 H Lactic Acid 1.3 Calcium 9.1 D Magnesium 1.8 Iron TIBC % Saturation Unsat Iron Binding Ferritin Total Bilirubin 0.6 Direct Bilirubin 0.3 AST 81 H ALT 34 Alkaline Phosphatase 73 C-Reactive Protein 1.69 H Total Protein 6.5 Albumin 4.0 Lipase 43 Vitamin B12 Folate Urine Color Dark Yellow Urine Appearance Clear Urine pH 6.5 Ur Specific [place] 1.020 Urine Protein 30 (1+) H Urine Glucose (UA) Negative Urine Ketones Trace Urine Blood Negative Urine Nitrite Negative Ur Leukocyte Esterase Negative Urine RBC 0-2 Urine WBC 0-5 Ur Squamous Epith Cells 0-2 Urine Bacteria None Seen Hyaline Casts 0-2 Urine Opiates Screen Not Detected Ur Buprenorphine Scrn Not Detected Ur Oxycodone Screen Not Detected Urine Methadone Screen Not Detected Urine Fentanyl Screen Not Detected Ur Barbiturates Screen POSITIVE H Ur Phencyclidine Scrn Not Detected Ur Amphetamines Screen Not Detected U Benzodiazepines Scrn POSITIVE H Urine Cocaine Screen Not Detected U Marijuana (THC) Screen Not Detected Ethyl Alcohol < 10 03/08/25 03/08/25 03/08/25 13:12 17:00 19:49 MCV 88.6 MCH 29.8 MCHC 33.6 RDW 15.9 Plt Count 201 MPV 10.6 Immature Gran % (Auto) Neut % (Auto) Lymph % (Auto) [place] % (Auto) Eos % (Auto) Baso % (Auto) Lymph # (Auto) [place] # (Auto) Eos # (Auto) Baso # (Auto) Abs Immat Gran (auto) Absolute Neuts (auto) Absolute Nucleated RBC 0.000 Nucleated RBC % (auto) 0.0 Absolute Retic 0.056 Percent Retic 1.6 Immature Retic Fraction 16.9 H Retic Hgb Equivalent 28.9 L PT 15.9 H INR 1.4 H Anion Gap Estim Creat Clear Calc Estimated GFR POC Glucose 94 96 Random Glucose Lactic Acid Calcium Magnesium Iron 146 TIBC 283 % Saturation 52 H Unsat Iron Binding 137 Ferritin 74 Total Bilirubin Direct Bilirubin AST ALT Alkaline Phosphatase C-Reactive Protein Total Protein Albumin Lipase Vitamin B12 311 Folate 8.9 Urine Color Urine Appearance Urine pH Ur Specific [place] Urine Protein Urine Glucose (UA) Urine Ketones Urine Blood Urine Nitrite Ur Leukocyte Esterase Urine RBC Urine WBC Ur Squamous Epith Cells Urine Bacteria Hyaline Casts Urine Opiates Screen Ur Buprenorphine Scrn Ur Oxycodone Screen Urine Methadone Screen Urine Fentanyl Screen Ur Barbiturates Screen Ur Phencyclidine Scrn Ur Amphetamines Screen U Benzodiazepines Scrn Urine Cocaine Screen U Marijuana (THC) Screen Ethyl Alcohol 03/09/25 03/09/25 05:35 07:19 MCV 88.2 MCH 29.9 MCHC 33.9 RDW 15.9 Plt Count 176 MPV 10.6 Immature Gran % (Auto) Neut % (Auto) Lymph % (Auto) [place] % (Auto) Eos % (Auto) Baso % (Auto) Lymph # (Auto) [place] # (Auto) Eos # (Auto) Baso # (Auto) Abs Immat Gran (auto) Absolute Neuts (auto) Absolute Nucleated RBC 0.000 Nucleated RBC % (auto) 0.0 Absolute Retic Percent Retic Immature Retic Fraction Retic Hgb Equivalent PT INR Anion Gap 11 L Estim Creat Clear Calc 156.3 Estimated GFR > 60 POC Glucose 130 H Random Glucose 128 H Lactic Acid Calcium 8.9 Magnesium 1.9 Iron TIBC % Saturation Unsat Iron Binding Ferritin Total Bilirubin Direct Bilirubin AST ALT Alkaline Phosphatase C-Reactive Protein Total Protein Albumin Lipase Vitamin B12 Folate Urine Color Urine Appearance Urine pH Ur Specific [place] Urine Protein Urine Glucose (UA) Urine Ketones Urine Blood Urine Nitrite Ur Leukocyte Esterase Urine RBC Urine WBC Ur Squamous Epith Cells Urine Bacteria Hyaline Casts Urine Opiates Screen Ur Buprenorphine Scrn Ur Oxycodone Screen Urine Methadone Screen Urine Fentanyl Screen Ur Barbiturates Screen Ur Phencyclidine Scrn Ur Amphetamines Screen U Benzodiazepines Scrn Urine Cocaine Screen U Marijuana (THC) Screen Ethyl Alcohol Assessment and Plan (1) Anemia: Status: Acute Plan 40 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 IV PPI, IV Fluid GI consult--> EGD today NPO until clear for no procedure Follow H/H Left foot cellulitis and chronic dry ulcer (3rd and 4th toes dorsum). Continue vancomycin and Zosyn 3.5375 mg IV every 6 hours. 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 ? Acute infection. Abx as above wound and surgery consults--> possible need for debridment in [place] Type 2 diabetes mellitus. Glipizide when not NPO sliding scale Essential hypertension. Continue lisinopril. Mood disorder. Continue pregabalin, lamotrigine and escitalopram. Hyperlipidemia. HLD History of alcohol abuse. Thiamine, folic acid and multivitamin. CIWA protocol. History of C diff. No diarrhea reported today. Code status: Full DVT prophylaxis: Start Lovenox if no acute GI bleeding. Patient will need hospitalization for at least 2 midnights for GI bleeding evaluation and treatmentl and left foot cellulitis treatment with IV antibiotics Quality Stroke Does the patient have a stroke diagnosis?: No VTE Prior VTE?: No VTE Risk Level:: Medical - moderate - high VTE Device Contraindication: Treatment Not Indicated VTE Drug Contraindication: Treatment Not Indicated
[2025-03-09] MEDS: 0.9 % Sodium Chloride Flush 3 ML SYRINGE IVFLUSH ×2 (08:04→15:14)
--- NOTE | 2025-03-09 09:37 | MHC.CM.PN ---
PT LIVES ALONE WILL BE IN ADULT [facility] PROGRAM BY THE END OF THE MONTH ADDITIONALLY HE HAS 50 HRS OF [employer] WHICH IS WORKIG ON FILLING ,PT WILL NEED TRANSPORTAION HOME DC PLAN HOME
--- NOTE | 2025-03-09 10:07 | MHC.CLN ---
Addendum entered by Pratima Terrazas RD 03/09/25 13:42: DIET ADVANCED TO DIABETIC 2000 KCAL. ADDING ENSURE MAX PROTEIN (300 KCALS, 60 G PROTEIN) BID TO PROMOTE WOUND HEALING. Original Note: NUTRITION CURRENTLY NPO FOR PROCEDURE. SKIN WITH CHRONIC PRESSURE INJURY TO COCCYX. WHEN DIET ADVANCES, RECOMMEND ENSURE MAX PROTEIN BID TO PROMOTE WOUND HEALING. SUPPLEMENT PROVIDES 300 KCALS, 60 G PROTEIN. FOLLOW FOR DIET ADVANCEMENT, PO INTAKE AND SKIN INTEGRITY. SEE CLINICAL NUTRITION ASSESSMENT 03/09/25.
[2025-03-09 11:20] LABS: Glucose, Whole Blood 118 mg/dL (60-115)
--- NOTE | 2025-03-09 12:16 | HO.ANESPROP2 ---
FORMERLY [facility], 1928–1983 Active Problems Active Problems: All Active Problems (Updated 03/08/25 @ 13:32 by Jose Elias Sellers MD) Sacral decubitus ulcer (Acute) Intractable pain (Acute) Upper gastrointestinal bleed (Acute) Cellulitis (Acute) Cellulitis of left foot (Acute) Anemia (Acute) Alcohol use disorder, severe, dependence (Acute) Acidosis, lactic (Acute) Alcohol intoxication (Acute) Alcoholic ketoacidosis (Acute) Bipolar disorder (Acute) PTSD (post-traumatic stress disorder) (Acute) Peripheral neuropathy (Acute) Hx of right BKA (Acute) Guillain-[place] (Acute) Past Medical History Medical History Sacral decubitus ulcer Osteomyelitis of foot Decubitus ulcer Amputation of one or more toes Aftercare following right hip joint replacement surgery Bipolar disorder PTSD (post-traumatic stress disorder) Sacral decubitus ulcer Peripheral neuropathy Non-insulin dependent type 2 diabetes mellitus Guillain-[place] Family History Family history of problems with anesthesia: No Surgical History Surgical History Hx of laminectomy History of total hip replacement Hx of right BKA History of Problems with Anesthesia: No Social History Social History Household Members: None Housing: House Are you a primary urgent care technician to a significant other at home: No Do you presently have visiting nurse or other home services: No Alcohol intake: current Alcohol intake frequency: 3 or more drinks per day Alcohol type: hard liquor Comment: stand pivot to luz marina avila Patient Tobacco Use Status: Current everyday Tobacco user Tobacco use type: Cigarette Cigarette Packs Per Day: 1 Cigarettes Per Day: 3 Years Smoked: 29 years Second Hand Smoke Exposure: No Substance Use Type: Marijuana service: No Meds Allergies Allergy/AdvReac Type Severity Reaction Status Date / Time baclofen Allergy Hives Verified 03/08/25 07:25 escitalopram (From Lexapro) Allergy Vomiting Verified 03/08/25 07:25 lithium Allergy Unresponsiv Verified 03/08/25 07:25 e metformin Allergy Unknown Verified 03/08/25 07:25 morphine Allergy Hives Verified 03/08/25 07:25 sulfamethoxazole (From Allergy Hives Verified 03/08/25 07:25 Bactrim) trimethoprim (From Bactrim) Allergy Hives Verified 03/08/25 07:25 Active Medications: Current Medications Acetaminophen (Acetaminophen 325 Mg Tablet) 975 mg PO Q6H PRN PRN Reason: Pain, Mild 1-3,fever,headache Atorvastatin Calcium (Atorvastatin Calcium 40 Mg Tablet) 40 mg PO DAILY [facility] Last Admin: 03/09/25 08:54 Dose: 40 mg Calcium Carbonate (Calcium Carbonate 750 Mg Tab.Chew) 750 mg PO Q4H PRN PRN Reason: Heartburn Dextrose (Dextrose 50 % 25 Gm/50 Ml Syringe) 25 gm IVPUSH Q15M PRN; Protocol PRN Reason: per Hypoglycemia Standing Ord. Escitalopram Oxalate (Escitalopram Oxalate 10 Mg Tablet) 10 mg PO DAILY [facility] Last Admin: 03/09/25 08:54 Dose: 10 mg Folic Acid (Folic Acid 1 Mg Tablet) 1 mg PO DAILY [facility] Last Admin: 03/09/25 08:54 Dose: 1 mg Glipizide (Glipizide 5 Mg Tablet) 2.5 mg PO BIDAC [facility] Last Admin: 03/09/25 07:57 Dose: Not Given Glucose (Glucose Gel 15 Gm Gel..Gram.) 15 gm PO Q15M PRN; Protocol PRN Reason: per Hypoglycemia Standing Ord. Hydromorphone HCl (Hydromorphone Hcl 1 Mg/Ml Syringe) 1 mg IVPUSH Q4H PRN; Protocol PRN Reason: Pain, Severe (Pain Scale 7-10) Last Admin: 03/09/25 08:04 Dose: 1 mg Lactated Ringer's (Lr) 1,000 mls @ 100 mls/hr IVCONT .Q10H [facility] Last Admin: 03/09/25 02:37 Dose: 100 mls/hr Piperacillin Sod/Tazobactam (Sod 3.375 gm/ Sodium Chloride) 50 mls @ 100 mls/hr IV Q6H [facility] Last Infusion: 03/09/25 08:53 Dose: Infused Vancomycin HCl 750 mg/ Sodium (Chloride) 265 mls @ 265 mls/hr IV Q8H [facility] Last Infusion: 03/09/25 09:54 Dose: Infused Insulin Human Lispro (Insulin Lispro 100 Unit/Ml 3 Ml Vial) 0 unit SUBCUT QIDACHS [facility]; Protocol Last Admin: 03/09/25 07:48 Dose: Not Given Lamotrigine (Lamotrigine 25 Mg Tablet) 25 mg PO DAILY [facility] Last Admin: 03/09/25 08:54 Dose: 25 mg Lisinopril (Lisinopril 5 Mg Tablet) 5 mg PO DAILY [facility]; Protocol Last Admin: 03/09/25 09:46 Dose: Not Given Magnesium Hydroxide (Milk Of Magnesia 30 Ml Oral.Susp) 30 ml PO DAILY PRN PRN Reason: Constipation Melatonin (Melatonin 3 Mg Tablet) 6 mg PO BEDTIME PRN PRN Reason: Insomnia Naloxone HCl (Naloxone Hcl 0.4 Mg/Ml Vial) 0.04 mg IVPUSH Q5M PRN PRN Reason: Excessive sedation or RR < 8 Naloxone HCl (Naloxone Hcl 0.4 Mg/Ml Vial) 0.04 mg IVPUSH Q5M PRN PRN Reason: Excessive sedation or RR < 8 Pantoprazole Sodium (Pantoprazole Sodium 40 Mg/10 Ml Vial) 40 mg IVPUSH Q12H [facility] Last Admin: 03/09/25 08:04 Dose: 40 mg Pharmacy Consult (Consult Rx Vancomycin Dosing) 1 each MISCELLANE DAILY PRN PRN Reason: Consult order Pharmacy Consult (Consult Rx Etoh Phenob Im/Po) 1 each MISCELLANE ONCE PRN; Protocol PRN Reason: Consult order Phenobarbital (Phenobarbital 30 Mg Tablet) 60 mg PO BID [facility] Stop: 03/10/25 21:01 Last Admin: 03/09/25 08:54 Dose: 60 mg Phenobarbital (Phenobarbital 30 Mg Tablet) 30 mg PO BID [facility] Stop: 03/12/25 21:01 Phenobarbital (Phenobarbital 30 Mg Tablet) 30 mg PO DAILY [facility] Stop: 03/14/25 09:01 Pregabalin (Pregabalin 75 Mg Capsule) 225 mg PO BID [facility] Last Admin: 03/09/25 08:54 Dose: 225 mg Quetiapine Fumarate (Quetiapine Fumarate 300 Mg Tablet) 300 mg PO BEDTIME [facility] Last Admin: 03/08/25 20:34 Dose: 300 mg Sodium Chloride (0.9 % Sodium Chloride Flush 3 Ml Syringe) 3 ml IVFLUSH QSHIFT [facility] Last Admin: 03/09/25 08:04 Dose: 3 ml Home Medications ?Medication ?Instructions ?Recorded ?Confirmed ?Last Taken ?Type glipizide 5 mg tablet 2.5 mg PO BIDAC 02/02/25 03/08/25 03/07/25 History pregabalin 225 mg capsule 225 mg PO BID 02/02/25 03/08/25 03/07/25 History quetiapine 300 mg tablet 300 mg PO BEDTIME 02/02/25 03/08/25 03/07/25 History atorvastatin 40 mg tablet 40 mg PO DAILY 03/08/25 03/08/25 03/07/25 History escitalopram oxalate 10 mg tablet 10 mg PO DAILY 03/08/25 03/08/25 Unknown History folic acid 1 mg tablet 1 mg PO DAILY 03/08/25 03/08/25 03/07/25 History lamotrigine 25 mg tablet 25 mg PO DAILY 03/08/25 03/08/25 03/07/25 History lisinopril 5 mg tablet 5 mg PO DAILY 03/08/25 03/08/25 03/07/25 History Exam Height,Weight and Vital Signs: Height 6 ft 1 in Weight 107 kg Last Vital Signs Temp 98.0 F 03/09/25 11:10 Pulse 87 03/09/25 11:10 Resp 14 03/09/25 11:10 BP 133/76 03/09/25 11:10 Pulse Ox 95 03/09/25 11:10 O2 Del Method Room Air 03/09/25 11:10 Pertinent Lab Results Pertinent Lab Results: Laboratory Tests 03/08/25 03/08/25 03/08/25 07:54 08:03 08:37 WBC 8.7 RBC 3.79 L Hgb 11.3 L Hct 32.9 L D MCV 86.8 MCH 29.8 MCHC 34.3 RDW 16.3 H Plt Count 222 MPV 10.1 Immature Gran % (Auto) 0.6 H Neut % (Auto) 69.6 Lymph % (Auto) 23.2 Tripp % (Auto) 5.2 Eos % (Auto) 0.9 Baso % (Auto) 0.5 Lymph # (Auto) 2.0 Tripp # (Auto) 0.5 Eos # (Auto) 0.1 Baso # (Auto) 0.0 Abs Immat Gran (auto) 0.05 H Absolute Neuts (auto) 6.1 Absolute Nucleated RBC 0.000 Nucleated RBC % (auto) 0.0 Absolute Retic Percent Retic Immature Retic Fraction Retic Hgb Equivalent PT INR Sodium 144 Potassium 3.1 L Chloride 108 Carbon Dioxide 25 Anion Gap 14 BUN 14 Creatinine 0.85 Estim Creat Clear Calc 145.5 Estimated GFR > 60 POC Glucose Random Glucose 126 H Lactic Acid 1.3 Calcium 9.1 D Magnesium 1.8 Iron TIBC % Saturation Unsat Iron Binding Ferritin Total Bilirubin 0.6 Direct Bilirubin 0.3 AST 81 H ALT 34 Alkaline Phosphatase 73 C-Reactive Protein 1.69 H Total Protein 6.5 Albumin 4.0 Lipase 43 Vitamin B12 Folate Urine Color Dark Yellow Urine Appearance Clear Urine pH 6.5 Ur Specific [place] 1.020 Urine Protein 30 (1+) H Urine Glucose (UA) Negative Urine Ketones Trace Urine Blood Negative Urine Nitrite Negative Ur Leukocyte Esterase Negative Urine RBC 0-2 Urine WBC 0-5 Ur Squamous Epith Cells 0-2 Urine Bacteria None Seen Hyaline Casts 0-2 Urine Opiates Screen Not Detected Ur Buprenorphine Scrn Not Detected Ur Oxycodone Screen Not Detected Urine Methadone Screen Not Detected Urine Fentanyl Screen Not Detected Ur Barbiturates Screen POSITIVE H Ur Phencyclidine Scrn Not Detected Ur Amphetamines Screen Not Detected U Benzodiazepines Scrn POSITIVE H Urine Cocaine Screen Not Detected U Marijuana (THC) Screen Not Detected Ethyl Alcohol < 10 03/08/25 03/08/25 03/08/25 13:12 17:00 19:49 WBC 6.3 RBC 3.59 L Hgb 10.7 L Hct 31.8 L MCV 88.6 MCH 29.8 MCHC 33.6 RDW 15.9 Plt Count 201 MPV 10.6 Immature Gran % (Auto) Neut % (Auto) Lymph % (Auto) [place] % (Auto) Eos % (Auto) Baso % (Auto) Lymph # (Auto) [place] # (Auto) Eos # (Auto) Baso # (Auto) Abs Immat Gran (auto) Absolute Neuts (auto) Absolute Nucleated RBC 0.000 Nucleated RBC % (auto) 0.0 Absolute Retic 0.056 Percent Retic 1.6 Immature Retic Fraction 16.9 H Retic Hgb Equivalent 28.9 L PT 15.9 H INR 1.4 H Sodium Potassium Chloride Carbon Dioxide Anion Gap BUN Creatinine Estim Creat Clear Calc Estimated GFR POC Glucose 94 96 Random Glucose Lactic Acid Calcium Magnesium Iron 146 TIBC 283 % Saturation 52 H Unsat Iron Binding 137 Ferritin 74 Total Bilirubin Direct Bilirubin AST ALT Alkaline Phosphatase C-Reactive Protein Total Protein Albumin Lipase Vitamin B12 311 Folate 8.9 Urine Color Urine Appearance Urine pH Ur Specific [place] Urine Protein Urine Glucose (UA) Urine Ketones Urine Blood Urine Nitrite Ur Leukocyte Esterase Urine RBC Urine WBC Ur Squamous Epith Cells Urine Bacteria Hyaline Casts Urine Opiates Screen Ur Buprenorphine Scrn Ur Oxycodone Screen Urine Methadone Screen Urine Fentanyl Screen Ur Barbiturates Screen Ur Phencyclidine Scrn Ur Amphetamines Screen U Benzodiazepines Scrn Urine Cocaine Screen U Marijuana (THC) Screen Ethyl Alcohol 03/09/25 03/09/25 03/09/25 05:35 07:19 11:17 WBC 4.2 L RBC 3.38 L Hgb 10.1 L Hct 29.8 L MCV 88.2 MCH 29.9 MCHC 33.9 RDW 15.9 Plt Count 176 MPV 10.6 Immature Gran % (Auto) Neut % (Auto) Lymph % (Auto) [place]pp % (Auto) Eos % (Auto) Baso % (Auto) Lymph # (Auto) [place]pp # (Auto) Eos # (Auto) Baso # (Auto) Abs Immat Gran (auto) Absolute Neuts (auto) Absolute Nucleated RBC 0.000 Nucleated RBC % (auto) 0.0 Absolute Retic Percent Retic Immature Retic Fraction Retic Hgb Equivalent PT INR Sodium 151 H Potassium 3.9 D Chloride 117 H Carbon Dioxide 27 Anion Gap 11 L BUN 12 Creatinine 0.79 Estim Creat Clear Calc 156.3 Estimated GFR > 60 POC Glucose 130 H 118 H Random Glucose 128 H Lactic Acid Calcium 8.9 Magnesium 1.9 Iron TIBC % Saturation Unsat Iron Binding Ferritin Total Bilirubin Direct Bilirubin AST ALT Alkaline Phosphatase C-Reactive Protein Total Protein Albumin Lipase Vitamin B12 Folate Urine Color Urine Appearance Urine pH Ur Specific [place] Urine Protein Urine Glucose (UA) Urine Ketones Urine Blood Urine Nitrite Ur Leukocyte Esterase Urine RBC Urine WBC Ur Squamous Epith Cells Urine Bacteria Hyaline Casts Urine Opiates Screen Ur Buprenorphine Scrn Ur Oxycodone Screen Urine Methadone Screen Urine Fentanyl Screen Ur Barbiturates Screen Ur Phencyclidine Scrn Ur Amphetamines Screen U Benzodiazepines Scrn Urine Cocaine Screen U Marijuana (THC) Screen Ethyl Alcohol Airway Mallampati Class: II (edentulous) TM Dist: >3cm Neck ROM: Full Heart: rrr Lungs: cta Assessment and Plan Assessment Anesthesia Assessment: Anesthesia Plan Discussed and Chart Reviewed Final Anesthetic Review Family History of Problems with Anesthesia: No History of Problems with Anesthesia: No NPO: Yes ASA Class: III Final Preanesthetic Review: No Changes in Pt Med Stat, Meds/Allgs Chart Reviewed and Consent Obtained/Reviewed Patient Risk: Intermediate Procedure Risk: Intermediate Anesthetic Plan Anesthetic Plan: MAC: Disposition: Standard PACU
--- NOTE | 2025-03-09 12:36 | W.PM.OPN ---
Operative Note Operative Note Date of Service: 03/09/25 Narrative: FLEXIBLE TRANSORAL UPPER GASTROINTESTINAL ENDOSCOPY WITH BIOPSIES Pre-op diagnosis: GI bleeding, Anemia Post-op diagnosis: Esophageal ulcer, gastritis, portal gastropathy, duodenitis Endoscopist:? Dandre Shannon MD Anesthesia:?MAC UPPER ENDOSCOPY Consent: Indications for the procedure and potential complications of bleeding, perforation, reaction to medications and missed diagnosis were discussed with the patient and informed consent was obtained. Instrument: Olympus GIF H 190 mid size upper endoscope Monitoring: Vital signs and clinical assessment, continuous EKG monitoring, Pulse oximetry, Carbon Dioxide monitoring and blood pressure monitoring were done throughout the procedure. Procedure: The patient was placed in the left lateral decubitis position and pre-procedure medications were administered and a bite block was placed. The endoscope was inserted into the mouth and advanced under direct vision to the third part of duodenum. A careful inspection was made as the upper endoscope was withdrawn including a retroflexed examination of the proximal stomach; Findings and interventions are described below. Findings: Larynx: Normal Esophagus: GE junction at 42 cms. A 1 cms superficial ulcer covered with exudate No esophageal varices were seen. Stomach: Moderate portal hypertensive gastropathy. Moderate antral erythema - biopsies were obtained from the antrum. Grade 2 flap valve and no gastric varices on retroflexed examination of the cardia. Duodenum: Mild duodenitis in the bulb and normal descending duodenum Intervention: Biopsies as noted above Impression and Post Procedure Diagnosis: Endoscopy Findings: ESOPHAGUS: A 1 cms superficial ulcer covered with exudate - possibly a healing Rosmery-Hendrickson tear STOMACH: portal hypertensive gastropathy and antral gastritis DUODENUM: Mild duodenitis in the bulb and normal descending duodenum No blood seen in the upper GI tract during EGD. Black stools and melena possibly from a Rosmery-Hendrickson tear which has healed versus lower GI source. Plan: 1. Start a diabetic diet. 2. Check CBC daily. 3. Clear liquid diet and Golytely prep on 03/11/25 for colonoscopy on 03/12/25 - Above findings were reviewed with the patient and relevant handouts were given and the discharge area. ADDENDUM: Pt refused to take colon prep and have colonoscopy and left AMA BIOPSIES SHOWED: Gastric antrum, biopsy: Gastric antral mucosa with focal ectatic vessels, mild reactive changes, and focal minimal chronic inactive inflammation; negative for intestinal metaplasia and dysplasia
[2025-03-09 13:12] LABS: Glucose, Whole Blood 123 mg/dL (60-115)
[2025-03-09 16:11] LABS: Glucose, Whole Blood 126 mg/dL (60-115)
[2025-03-09 18:24] LABS: OBS Int Ctl Valid YES; OBS1 POSITIVE (NEGATIVE)
[2025-03-09 20:13] LABS: Glucose, Whole Blood 81 mg/dL (60-115)
[2025-03-10 03:17] VITALS: BP 128/83; PULSE 89; RESP 18; TEMP 36.3; O2SAT 95
[2025-03-10 07:25] LABS: Glucose, Whole Blood 165 mg/dL (60-115)
[2025-03-10 07:26] VITALS: BP 138/87; PULSE 76; RESP 18; TEMP 36.6; O2SAT 98
[2025-03-10 07:38] LABS: Creatinine Clr Calc Pharmacy 190.0; Estimated Glomerular Filt Rate > 60
[2025-03-10 08:47] LABS: MANUAL DIFF FLAG NO
[2025-03-10 08:54] LABS: Hematocrit 29.5 % (42.0-52.0); Hemoglobin 9.8 g/dl (14.0-18.0); Imm Gran Abs Auto 0.03 X10*3/uL (0.00-0.03); Imm Gran Pct Auto 0.7 % (0.0-0.4); Lymphocytes Absolute Auto 1.3 X10*3/uL (1.2-4.9); Mean Corpuscular HGB Conc 33.2 g/dl (31.0-36.0); Mean Corpuscular Hemoglobin 29.7 pg (27.0-33.0); Mean Corpuscular Volume 89.4 fL (80.0-98.0); NRBC Abs Auto 0.000 X10*3/uL (0.0-0.012); NRBC Pct Auto 0.0 /100WBC (0.0-0.2); Platelet Count 152 X10*3/uL (160-400); Red Blood Count 3.30 X10*6/uL (4.60-5.80); White Blood Count 4.4 X10*3/uL (4.8-10.8)
[2025-03-10 09:04] LABS: Anion Gap 9 (12-20); Blood Urea Nitrogen 11 mg/dL (9-16); Calcium 8.3 mg/dL (8.4-10.2); Carbon Dioxide 24 mmol/L (22-29); Chloride 112 mmol/L (96-108); Creatinine Clr Calc Pharmacy 205.8; Estimated Glomerular Filt Rate > 60; Potassium 3.4 mmol/L (3.3-5.1); Sodium 142 mmol/L (135-145)
[2025-03-10 09:19] VITALS: BP 153/91; PULSE 76
--- NOTE | 2025-03-10 10:02 | HO.PM.IMPN ---
Subjective Subjective Date of Service: 03/10/25 Interval History: Patient continues to have sacral pain. Denies any other complaints. No acute nursing events overnight Review of Systems All 12 systems were reviewed and normal except as noted in HPI. Physical Exam Exam: Exam: Middle-aged male lying in bed in no distress Neck supple, no JVD Regular rate and rhythm, S1-S2 heard Regular breath sounds bilaterally, no wheezing or crackles appreciated Abdomen soft nontender, no guarding, no rigidity Patient is awake, alert and oriented to self, place, time and person ; no focal motor deficit Psych: Normal mood Right BKA, left foot with erythema and edema; ulceration of 3rd and 4th toe Sacral decubitus injury+ Vital Signs: Vital Signs: Last Vital Signs Temp 97.8 F 03/10/25 07:26 Pulse 76 03/10/25 09:19 Resp 18 03/10/25 07:26 BP 153/91 H 03/10/25 09:19 Pulse Ox 98 03/10/25 07:26 O2 Del Method Room Air 03/10/25 07:26 BMI result Body Mass Index 31.1 Objective Data Active Medications Acetaminophen (Acetaminophen 325 Mg Tablet) 975 mg PO Q6H PRN PRN Reason: Pain, Mild 1-3,fever,headache Atorvastatin Calcium (Atorvastatin Calcium 40 Mg Tablet) 40 mg PO DAILY [facility] Last Admin: 03/10/25 08:15 Dose: 40 mg Documented By: DAVID Calcium Carbonate (Calcium Carbonate 750 Mg Tab.Chew) 750 mg PO Q4H PRN PRN Reason: Heartburn Dextrose (Dextrose 50 % 25 Gm/50 Ml Syringe) 25 gm IVPUSH Q15M PRN; Protocol PRN Reason: per Hypoglycemia Standing Ord. Escitalopram Oxalate (Escitalopram Oxalate 10 Mg Tablet) 10 mg PO DAILY [facility] Last Admin: 03/10/25 08:15 Dose: 10 mg Documented By: DAVID Folic Acid (Folic Acid 1 Mg Tablet) 1 mg PO DAILY [facility] Last Admin: 03/10/25 08:15 Dose: 1 mg Documented By: DAVID Glipizide (Glipizide 5 Mg Tablet) 2.5 mg PO BIDAC [facility] Last Admin: 03/10/25 07:42 Dose: 2.5 mg Documented By: DAVID Glucose (Glucose Gel 15 Gm Gel..Gram.) 15 gm PO Q15M PRN; Protocol PRN Reason: per Hypoglycemia Standing Ord. Hydromorphone HCl (Hydromorphone Hcl 1 Mg/Ml Syringe) 1 mg IVPUSH Q4H PRN; Protocol PRN Reason: Pain, Severe (Pain Scale 7-10) Last Admin: 03/10/25 08:19 Dose: 1 mg Documented By: DAVID Piperacillin Sod/Tazobactam (Sod 3.375 gm/ Sodium Chloride) 50 mls @ 100 mls/hr IV Q6H [facility] Last Infusion: 03/10/25 08:49 Dose: Infused Documented By: DAVID Dextrose (D5w) 1,000 mls @ 150 mls/hr IVCONT .Q6H40M [facility] Last Admin: 03/10/25 05:47 Dose: 150 mls/hr Documented By: MARA Vancomycin HCl 1,000 mg/ (Sodium Chloride) 270 mls @ 270 mls/hr IV Q8H [facility] Last Infusion: 03/10/25 09:59 Dose: Infused Documented By: DAVID Insulin Human Lispro (Insulin Lispro 100 Unit/Ml 3 Ml Vial) 0 unit SUBCUT QIDACHS [facility]; Protocol Last Admin: 03/10/25 07:43 Dose: 2 unit Documented By: DAVID Lamotrigine (Lamotrigine 25 Mg Tablet) 25 mg PO DAILY [facility] Last Admin: 03/10/25 08:15 Dose: 25 mg Documented By: DAVID Lisinopril (Lisinopril 5 Mg Tablet) 5 mg PO DAILY [facility]; Protocol Last Admin: 03/10/25 08:15 Dose: 5 mg Documented By: DAVID Magnesium Hydroxide (Milk Of Magnesia 30 Ml Oral.Susp) 30 ml PO DAILY PRN PRN Reason: Constipation Melatonin (Melatonin 3 Mg Tablet) 6 mg PO BEDTIME PRN PRN Reason: Insomnia Naloxone HCl (Naloxone Hcl 0.4 Mg/Ml Vial) 0.04 mg IVPUSH Q5M PRN PRN Reason: Excessive sedation or RR < 8 Naloxone HCl (Naloxone Hcl 0.4 Mg/Ml Vial) 0.04 mg IVPUSH Q5M PRN PRN Reason: Excessive sedation or RR < 8 Pantoprazole Sodium (Pantoprazole Sodium 40 Mg/10 Ml Vial) 40 mg IVPUSH Q12H [facility] Last Admin: 03/10/25 08:15 Dose: 40 mg Documented By: DAVID Pharmacy Consult (Consult Rx Vancomycin Dosing) 1 each MISCELLANE DAILY PRN PRN Reason: Consult order Pharmacy Consult (Consult Rx Etoh Phenob Im/Po) 1 each MISCELLANE ONCE PRN; Protocol PRN Reason: Consult order Phenobarbital (Phenobarbital 30 Mg Tablet) 60 mg PO BID [facility] Stop: 03/10/25 21:01 Last Admin: 03/10/25 09:17 Dose: 60 mg Documented By: DAVID Phenobarbital (Phenobarbital 30 Mg Tablet) 30 mg PO BID [facility] Stop: 03/12/25 21:01 Phenobarbital (Phenobarbital 30 Mg Tablet) 30 mg PO DAILY [facility] Stop: 03/14/25 09:01 Pregabalin (Pregabalin 75 Mg Capsule) 225 mg PO BID [facility] Last Admin: 03/10/25 08:14 Dose: 225 mg Documented By: DAVID Quetiapine Fumarate (Quetiapine Fumarate 300 Mg Tablet) 300 mg PO BEDTIME [facility] Last Admin: 03/09/25 21:20 Dose: 300 mg Documented By: MARA Sodium Chloride (0.9 % Sodium Chloride Flush 3 Ml Syringe) 3 ml IVFLUSH QSHIFT [facility] Last Admin: 03/10/25 07:09 Dose: Not Given Documented By: DAVID Non-Admin Reason: IV Running Labs 03/10/25 08:24 03/10/25 08:24 Labs: Laboratory Results - last 24 hr 03/09/25 03/09/25 03/09/25 11:17 13:06 15:14 MCV MCH MCHC RDW Plt Count MPV Immature Gran % (Auto) Neut % (Auto) Lymph % (Auto) [place] % (Auto) Eos % (Auto) Baso % (Auto) Lymph # (Auto) [place] # (Auto) Eos # (Auto) Baso # (Auto) Abs Immat Gran (auto) Absolute Neuts (auto) Absolute Nucleated RBC Nucleated RBC % (auto) Anion Gap Estim Creat Clear Calc Estimated GFR POC Glucose 118 H 123 H Random Glucose Calcium Stool Occult Blood Random Vancomycin 9.9 L 03/09/25 03/09/25 03/09/25 16:07 17:45 20:08 MCV MCH MCHC RDW Plt Count MPV Immature Gran % (Auto) Neut % (Auto) Lymph % (Auto) [place] % (Auto) Eos % (Auto) Baso % (Auto) Lymph # (Auto) [place] # (Auto) Eos # (Auto) Baso # (Auto) Abs Immat Gran (auto) Absolute Neuts (auto) Absolute Nucleated RBC Nucleated RBC % (auto) Anion Gap Estim Creat Clear Calc Estimated GFR POC Glucose 126 H 81 Random Glucose Calcium Stool Occult Blood POSITIVE Random Vancomycin 03/10/25 03/10/25 03/10/25 06:50 07:17 08:24 MCV 89.4 MCH 29.7 MCHC 33.2 RDW 15.4 Plt Count 152 L MPV 10.9 Immature Gran % (Auto) 0.7 H Neut % (Auto) 60.7 Lymph % (Auto) 29.1 [place] % (Auto) 5.0 Eos % (Auto) 4.3 H Baso % (Auto) 0.2 Lymph # (Auto) 1.3 [place] # (Auto) 0.2 Eos # (Auto) 0.2 Baso # (Auto) 0.0 Abs Immat Gran (auto) 0.03 Absolute Neuts (auto) 2.7 Absolute Nucleated RBC 0.000 Nucleated RBC % (auto) 0.0 Anion Gap 9 L Estim Creat Clear Calc 190.0 205.8 Estimated GFR > 60 > 60 POC Glucose 165 H Random Glucose 154 H Calcium 8.3 L D Stool Occult Blood Random Vancomycin Microbiology Microbiology Results: Microbiology 03/08/25 08:37 Blood Culture - Preliminary Blood - Venous No growth after 24 hours. 03/08/25 08:37 Blood Culture - Preliminary Blood - Venous No growth after 24 hours. Assessment and Plan (1) Upper gastrointestinal bleed: Status: Acute Plan 40 y/o PMHx significant for GBS, wheelchair-bound, right BKA liver steatosis + cirrhosis here with melana and enemia Acute GI bleed EGD 03/09: Esophageal ulcer, gastritis, portal gastropathy and duodenitis Plan for clear liquid diet and GoLYTELY prep on 03/11 and colonoscopy on 03/12 Closely monitor H&H Left foot cellulitis and chronic dry ulcer (3rd and 4th toes dorsum). Continue vancomycin and Zosyn 3.5375 mg IV every 6 hours. Infected Sacral decubitus ulcer/chronic osteomyelitis of sacrum and coccyx/chronic osteomyelitis of right ischial tuberosity with ischial decubitus ulcer. Abx as above wound and surgery consults--> possible need for debridment in [place] Type 2 diabetes mellitus. sliding scale Essential hypertension. Continue lisinopril. Mood disorder. Continue pregabalin, lamotrigine and escitalopram. Hyperlipidemia. HLD History of alcohol abuse. Thiamine, folic acid and multivitamin. CIWA protocol. History of C diff. No diarrhea reported today. Code status: Full DVT prophylaxis: SCDs Reason for ongoing hospitalization: Ongoing GI workup for GI bleed, IV antibiotics Quality Stroke Does the patient have a stroke diagnosis?: No VTE Prior VTE?: No VTE Risk Level:: Medical - moderate - high VTE Device Contraindication: Treatment Not Indicated VTE Drug Contraindication: Treatment Not Indicated
[2025-03-10 11:28] LABS: Glucose, Whole Blood 129 mg/dL (60-115)
--- NOTE | 2025-03-10 12:34 | HO.POSTANES ---
Post Anesthesia Evaluation Post Anesthesia Evaluation Date of Service: 03/10/25 Vital Signs: Vital Signs Temp Pulse Resp BP Pulse Ox O2 Del Method 03/10/25 09:19 76 153/91 H 03/10/25 07:26 97.8 F 76 18 138/87 98 Room Air 03/10/25 03:17 97.3 F 89 18 128/83 95 Room Air Anesthesia: TIVA Mental Status: Awake Pain Control: Satisfactory Nausea/Vomiting: None Hydration: Adequate Anesthesia-Related Issues: No Anes. Related Issues
--- NOTE | 2025-03-10 15:36 | HE.PHANOTE ---
Vancomycin addendum: Level came back after 3 doses of q8h 1 gram as 10.7 and predicted AUC less than 400. Increased dose to 1250 mg q 8 hours with predicted AUC of 485, will recheck level again after 3 doses
[2025-03-10 15:43] VITALS: BP 150/97; PULSE 80; RESP 18; TEMP 36.8; O2SAT 98
[2025-03-10 16:15] LABS: Glucose, Whole Blood 129 mg/dL (60-115)
[2025-03-10 19:40] VITALS: BP 152/99; PULSE 73; RESP 18; TEMP 36.6; O2SAT 97
[2025-03-10 19:43] LABS: Glucose, Whole Blood 128 mg/dL (60-115)
[2025-03-10] MEDS: 0.9 % Sodium Chloride Flush 3 ML SYRINGE IVFLUSH (20:34)
[2025-03-11 03:16] VITALS: BP 151/93; PULSE 78; RESP 18; TEMP 36.6; O2SAT 99
[2025-03-11 06:26] LABS: MANUAL DIFF FLAG NO
[2025-03-11 06:28] LABS: Hematocrit 34.2 % (42.0-52.0); Hemoglobin 11.3 g/dl (14.0-18.0); Imm Gran Abs Auto 0.04 X10*3/uL (0.00-0.03); Imm Gran Pct Auto 0.8 % (0.0-0.4); Lymphocytes Absolute Auto 1.4 X10*3/uL (1.2-4.9); Mean Corpuscular HGB Conc 33.0 g/dl (31.0-36.0); Mean Corpuscular Hemoglobin 29.5 pg (27.0-33.0); Mean Corpuscular Volume 89.3 fL (80.0-98.0); NRBC Abs Auto 0.000 X10*3/uL (0.0-0.012); NRBC Pct Auto 0.0 /100WBC (0.0-0.2); Platelet Count 151 X10*3/uL (160-400); Red Blood Count 3.83 X10*6/uL (4.60-5.80); White Blood Count 5.2 X10*3/uL (4.8-10.8)
[2025-03-11 06:44] LABS: Creatinine Clr Calc Pharmacy 205.8; Estimated Glomerular Filt Rate > 60
[2025-03-11 07:28] LABS: Glucose, Whole Blood 125 mg/dL (60-115)
[2025-03-11 07:29] VITALS: BP 163/96; PULSE 71; RESP 18; TEMP 36.3; O2SAT 98
--- NOTE | 2025-03-11 07:37 | HO.PM.IMPN ---
Subjective Subjective Date of Service: 03/11/25 Interval History: Patient continues to have sacral pain. Denies any other complaints. No acute nursing events overnight Review of Systems All 12 systems were reviewed and normal except as noted in HPI. Physical Exam Exam: Exam: Middle-aged male lying in bed in no distress Neck supple, no JVD Regular rate and rhythm, S1-S2 heard Regular breath sounds bilaterally, no wheezing or crackles appreciated Abdomen soft nontender, no guarding, no rigidity Patient is awake, alert and oriented to self, place, time and person ; no focal motor deficit Psych: Normal mood Right BKA, left foot with erythema and edema; ulceration of 3rd and 4th toe Sacral decubitus injury+ Vital Signs: Vital Signs: Last Vital Signs Temp 97.4 F 03/11/25 07:29 Pulse 71 03/11/25 07:29 Resp 18 03/11/25 07:29 BP 163/96 H 03/11/25 07:29 Pulse Ox 98 03/11/25 07:29 O2 Del Method Room Air 03/11/25 07:29 BMI result Body Mass Index 31.1 Objective Data Active Medications Acetaminophen (Acetaminophen 325 Mg Tablet) 975 mg PO Q6H PRN PRN Reason: Pain, Mild 1-3,fever,headache Atorvastatin Calcium (Atorvastatin Calcium 40 Mg Tablet) 40 mg PO DAILY [facility] Last Admin: 03/10/25 08:15 Dose: 40 mg Documented By: DAVID Calcium Carbonate (Calcium Carbonate 750 Mg Tab.Chew) 750 mg PO Q4H PRN PRN Reason: Heartburn Dextrose (Dextrose 50 % 25 Gm/50 Ml Syringe) 25 gm IVPUSH Q15M PRN; Protocol PRN Reason: per Hypoglycemia Standing Ord. Escitalopram Oxalate (Escitalopram Oxalate 10 Mg Tablet) 10 mg PO DAILY [facility] Last Admin: 03/10/25 08:15 Dose: 10 mg Documented By: DAVID Folic Acid (Folic Acid 1 Mg Tablet) 1 mg PO DAILY [facility] Last Admin: 03/10/25 08:15 Dose: 1 mg Documented By: DAVID Glucose (Glucose Gel 15 Gm Gel..Gram.) 15 gm PO Q15M PRN; Protocol PRN Reason: per Hypoglycemia Standing Ord. Hydromorphone HCl (Hydromorphone Hcl 1 Mg/Ml Syringe) 1 mg IVPUSH Q4H PRN; Protocol PRN Reason: Pain, Severe (Pain Scale 7-10) Last Admin: 03/11/25 05:11 Dose: 1 mg Documented By: ALFREDO Piperacillin Sod/Tazobactam (Sod 3.375 gm/ Sodium Chloride) 50 mls @ 100 mls/hr IV Q6H [facility] Last Infusion: 03/11/25 02:20 Dose: Infused Documented By: ALFREDO Dextrose (D5w) 1,000 mls @ 150 mls/hr IVCONT .Q6H40M [facility] Last Admin: 03/11/25 05:10 Dose: 150 mls/hr Documented By: ALFREDO Vancomycin HCl 1,250 mg/ (Sodium Chloride) 250 mls @ 166.667 mls/hr IV Q8H [facility] Last Infusion: 03/11/25 01:30 Dose: Infused Documented By: ALFREDO Insulin Human Lispro (Insulin Lispro 100 Unit/Ml 3 Ml Vial) 0 unit SUBCUT QIDACHS [facility]; Protocol Last Admin: 03/11/25 07:35 Dose: Not Given Documented By: HANG Non-Admin Reason: No Insulin Coverage Lamotrigine (Lamotrigine 25 Mg Tablet) 25 mg PO DAILY [facility] Last Admin: 03/10/25 08:15 Dose: 25 mg Documented By: DAVID Lisinopril (Lisinopril 5 Mg Tablet) 5 mg PO DAILY [facility]; Protocol Last Admin: 03/10/25 08:15 Dose: 5 mg Documented By: DAVID Magnesium Hydroxide (Milk Of Magnesia 30 Ml Oral.Susp) 30 ml PO DAILY PRN PRN Reason: Constipation Melatonin (Melatonin 3 Mg Tablet) 6 mg PO BEDTIME PRN PRN Reason: Insomnia Naloxone HCl (Naloxone Hcl 0.4 Mg/Ml Vial) 0.04 mg IVPUSH Q5M PRN PRN Reason: Excessive sedation or RR < 8 Naloxone HCl (Naloxone Hcl 0.4 Mg/Ml Vial) 0.04 mg IVPUSH Q5M PRN PRN Reason: Excessive sedation or RR < 8 Pantoprazole Sodium (Pantoprazole Sodium 40 Mg/10 Ml Vial) 40 mg IVPUSH Q12H [facility] Last Admin: 03/10/25 20:33 Dose: 40 mg Documented By: ALFREDO Pharmacy Consult (Consult Rx Vancomycin Dosing) 1 each MISCELLANE DAILY PRN PRN Reason: Consult order Pharmacy Consult (Consult Rx Etoh Phenob Im/Po) 1 each MISCELLANE ONCE PRN; Protocol PRN Reason: Consult order Phenobarbital (Phenobarbital 30 Mg Tablet) 30 mg PO BID [facility] Stop: 03/12/25 21:01 Phenobarbital (Phenobarbital 30 Mg Tablet) 30 mg PO DAILY [facility] Stop: 03/14/25 09:01 Pregabalin (Pregabalin 75 Mg Capsule) 225 mg PO BID [facility] Last Admin: 03/10/25 20:34 Dose: 225 mg Documented By: ALFREDO Quetiapine Fumarate (Quetiapine Fumarate 300 Mg Tablet) 300 mg PO BEDTIME [facility] Last Admin: 03/10/25 20:33 Dose: 300 mg Documented By: ALFREDO Sodium Chloride (0.9 % Sodium Chloride Flush 3 Ml Syringe) 3 ml IVFLUSH QSHIFT [facility] Last Admin: 03/10/25 20:34 Dose: 3 ml Documented By: ALFREDO Labs 03/11/25 05:53 03/11/25 05:53 Labs: Laboratory Results - last 24 hr 03/10/25 03/10/25 03/10/25 06:50 08:24 11:15 MCV 89.4 MCH 29.7 MCHC 33.2 RDW 15.4 Plt Count 152 L MPV 10.9 Immature Gran % (Auto) 0.7 H Neut % (Auto) 60.7 Lymph % (Auto) 29.1 Motley % (Auto) 5.0 Eos % (Auto) 4.3 H Baso % (Auto) 0.2 Lymph # (Auto) 1.3 Motley # (Auto) 0.2 Eos # (Auto) 0.2 Baso # (Auto) 0.0 Abs Immat Gran (auto) 0.03 Absolute Neuts (auto) 2.7 Absolute Nucleated RBC 0.000 Nucleated RBC % (auto) 0.0 Anion Gap 9 L Estim Creat Clear Calc 190.0 205.8 Estimated GFR > 60 > 60 POC Glucose 129 H Random Glucose 154 H Calcium 8.3 L D Random Vancomycin 03/10/25 03/10/25 03/10/25 15:00 15:56 19:17 MCV MCH MCHC RDW Plt Count MPV Immature Gran % (Auto) Neut % (Auto) Lymph % (Auto) Motley % (Auto) Eos % (Auto) Baso % (Auto) Lymph # (Auto) Motley # (Auto) Eos # (Auto) Baso # (Auto) Abs Immat Gran (auto) Absolute Neuts (auto) Absolute Nucleated RBC Nucleated RBC % (auto) Anion Gap Estim Creat Clear Calc Estimated GFR POC Glucose 129 H 128 H Random Glucose Calcium Random Vancomycin 10.7 L 03/11/25 03/11/25 05:53 07:20 MCV 89.3 MCH 29.5 MCHC 33.0 RDW 15.5 Plt Count 151 L MPV 11.4 Immature Gran % (Auto) 0.8 H Neut % (Auto) 63.0 Lymph % (Auto) 27.5 Motley % (Auto) 4.4 Eos % (Auto) 3.9 Baso % (Auto) 0.4 Lymph # (Auto) 1.4 Motley # (Auto) 0.2 Eos # (Auto) 0.2 Baso # (Auto) 0.0 Abs Immat Gran (auto) 0.04 H Absolute Neuts (auto) 3.3 Absolute Nucleated RBC 0.000 Nucleated RBC % (auto) 0.0 Anion Gap Estim Creat Clear Calc 205.8 Estimated GFR > 60 POC Glucose 125 H Random Glucose Calcium Random Vancomycin Microbiology Microbiology Results: Microbiology 03/08/25 08:37 Blood Culture - Preliminary Blood - Venous No growth after 48 hours. 03/08/25 08:37 Blood Culture - Preliminary Blood - Venous No growth after 48 hours. Assessment and Plan (1) Upper gastrointestinal bleed: Status: Acute Plan 40 y/o PMHx significant for GBS, wheelchair-bound, right BKA liver steatosis + cirrhosis here with melana and enemia Acute GI bleed, H/H stable EGD 03/09: Esophageal ulcer, gastritis, portal gastropathy and duodenitis Plan for clear liquid diet and GoLYTELY prep on 03/11 and colonoscopy on 03/12 Closely monitor H&H Left foot cellulitis and chronic dry ulcer (3rd and 4th toes dorsum). Continue vancomycin and Zosyn 3.5375 mg IV every 6 hours-->PO doxy Infected Sacral decubitus ulcer/chronic osteomyelitis of sacrum and coccyx/chronic osteomyelitis of right ischial tuberosity with ischial decubitus ulcer. Abx as above wound and surgery consults--> possible need for debridment in [place] Type 2 diabetes mellitus. sliding scale Essential hypertension. Continue lisinopril. Mood disorder. Continue pregabalin, lamotrigine and escitalopram. Hyperlipidemia. HLD History of alcohol abuse. Thiamine, folic acid and multivitamin. CIWA protocol. History of C diff. No diarrhea reported today. Code status: Full DVT prophylaxis: SCDs Reason for ongoing hospitalization: Ongoing GI workup for GI bleed, IV antibiotics Quality Stroke Does the patient have a stroke diagnosis?: No VTE Prior VTE?: No VTE Risk Level:: Medical - moderate - high VTE Device Contraindication: Treatment Not Indicated VTE Drug Contraindication: Treatment Not Indicated
--- NOTE | 2025-03-11 08:02 | P.DS_ITS ---
DS: Providers Provider Date of Service: 03/11/25 Date of admission: 03/08/25 11:40 Date of discharge: 03/11/25 Primary care physician: None Physician Consults: 03/08/25 11:43 Consult to Wound Care Routine Reason for consultation: Sacral decubitus ulcer 03/08/25 12:22 Consult to Gastroenterology Routine Consulting Provider: Dandre Shannon Reason for consultation: Anemia, black stool Has provider been notified: No 03/08/25 12:33 Consult to General Surgery Routine Consulting Provider: [facility] [place] Surgeons Reason for consultation: Sacral ulcer Has provider been notified: No DS: Diagnosis Discharge Diagnosis (1) Upper gastrointestinal bleed: Status: Acute DS: Summary Hospital Course Hospital Course: Left AMA admission hpi by Dr. Villasenor Chief Complaint: Left foot pain, black stools Jean Roldan is a 40 years old man with past medical history significant for GBS, wheelchair-bound, right BKA, type 2 diabetes mellitus, chronic sacral ulcer, osteomyelitis, C diff infection, liver steatosis, ongoing alcohol abuse, PTSD and bipolar disorder presents to the emergency department complaining of worsening pain to the left foot and lower back. He reported chills and nausea but denied fever or events of vomiting. He also is complaining of black stools and epigastric/chest pain that has been going on for awhile. He denied history of GI bleeding. He did not report shortness on breath but mentioned he has been congested recently. He is not coughing. Did not report use of blood thinner or NSAIDs. He was recently diagnosed with alcohol withdrawal syndrome and was hospitalist for this. During this hospitalization patient was evaluated by vascular surgeon who recommended conservative management. In the ED, he was found to have normal vital signs. Blood workup showed no leukocytosis. Hemoglobin is 11.3 (it was 13.7 -February 18, 2025). Hematocrit is 32.9 platelets are normal. MCV is 86.8. There is no lactic acidosis. There is hypokalemia of 3.1. There are no other electrolyte imbalances. LFTs are unremarkable (except for elevated AST 81). CRP is 1.69. BUN is 14 and creatinine 0.85. CRP is elevateed (worsening 0.52 --> 1.69). Albumin, protein and lipase are normal. Urinalysis is only remarkable for proteinuria 1+. ETOH level < 10. Abdominal pelvic CT scan with contrast showed no contrast extrava sation, there is cirrhosis of the liver with hepatic steatosis and splenomegaly, cholelithiasis, colonic diverticulosis without diverticulitis and bilateral decubitus ulcer overlying the ischial tuberosity and 1.6 cm left adrenal adenoma. ED tx: LR 1 L bolus, thiamine 200 mg, Protonix 40 mg IV ceftriaxone 1 g, vancomycin 1 g IV, potassium 40 mEq p.o., Dilaudid 2 mg IV total Hospital [facility]use 40 y/o PMHx significant for GBS, wheelchair-bound, right BKA liver steatosis + cirrhosis here with melana and enemia Acute GI bleed, H/H stable EGD 03/09: Esophageal ulcer, gastritis, portal gastropathy and duodenitis Plan for clear liquid diet and GoLYTELY prep on 03/11 and colonoscopy on 03/12 BUT He singed against medical advise and advised to have colonoscoy done on out patient basis Prescribed Prilosec Left foot cellulitis and chronic dry ulcer (3rd and 4th toes dorsum). Continue vancomycin and Zosyn 3.5375 mg IV every 6 hours-->PO doxy at discharge Infected Sacral decubitus ulcer/chronic osteomyelitis of sacrum and coccyx/chronic osteomyelitis of right ischial tuberosity with ischial decubitus ulcer. Abx as above wound and surgery consults-->He was to have possible debridement in OR Type 2 diabetes mellitus. resume home regimen Essential hypertension. Continue lisinopril. Mood disorder. resume home meds Hyperlipidemia. resume home med History of alcohol abuse. Thiamine, folic acid and multivitamin. CIWA protocol. He was advised against leaving, but related that he had thing to take care of at home and could not stay and will make arrangment with GI for outpatient colonoscopy, he was awake, alert and oriented to self, place and time and was fully aware of circumstances of his hospitalization and proceeded to sign againt medical advise. RN was present at the bedside Time Attestation Discharge Coordination Time (in mins): 35 Quality: Safe Use of Opioids Does Pt have an Active Cancer Diagnosis on the Problem List?: No Quality: Stroke Does the patient have a stroke diagnosis?: No Physical Exam Vital Signs: Vital Signs: Last Vital Signs Temp 97.4 F 03/11/25 07:29 Pulse 71 03/11/25 07:29 Resp 18 07/20/25 07:29 BP 163/96 H 03/11/25 07:29 Pulse Ox 98 03/11/25 07:29 O2 Del Method Room Air 03/11/25 07:29 BMI result Body Mass Index 31.1 DS: Data Data Completed and Pending Completed studies during hospitalization [Text1]: Procedures Detoxification Services for Substance Abuse Treatment (02/18/25) Pending studies at discharge: Pending at discharge 03/09/25 12:30 Surgical [PTH] Routine Labs on day of discharge: Laboratory Results - last 24 hr 03/10/25 03/10/25 03/10/25 08:24 11:15 15:00 WBC 4.4 L RBC 3.30 L Hgb 9.8 L Hct 29.5 L MCV 89.4 MCH 29.7 MCHC 33.2 RDW 15.4 Plt Count 152 L MPV 10.9 Immature Gran % (Auto) 0.7 H Neut % (Auto) 60.7 Lymph % (Auto) 29.1 Harvey % (Auto) 5.0 Eos % (Auto) 4.3 H Baso % (Auto) 0.2 Lymph # (Auto) 1.3 Harvey # (Auto) 0.2 Eos # (Auto) 0.2 Baso # (Auto) 0.0 Abs Immat Gran (auto) 0.03 Absolute Neuts (auto) 2.7 Absolute Nucleated RBC 0.000 Nucleated RBC % (auto) 0.0 Sodium 142 Potassium 3.4 Chloride 112 H Carbon Dioxide 24 Anion Gap 9 L BUN 11 Creatinine 0.60 Estim Creat Clear Calc 205.8 Estimated GFR > 60 POC Glucose 129 H Random Glucose 154 H Calcium 8.3 L D Random Vancomycin 10.7 L 03/10/25 03/10/25 03/11/25 15:56 19:17 05:53 WBC 5.2 RBC 3.83 L Hgb 11.3 L Hct 34.2 L MCV 89.3 MCH 29.5 MCHC 33.0 RDW 15.5 Plt Count 151 L MPV 11.4 Immature Gran % (Auto) 0.8 H Neut % (Auto) 63.0 Lymph % (Auto) 27.5 Harvey % (Auto) 4.4 Eos % (Auto) 3.9 Baso % (Auto) 0.4 Lymph # (Auto) 1.4 Harvey # (Auto) 0.2 Eos # (Auto) 0.2 Baso # (Auto) 0.0 Abs Immat Gran (auto) 0.04 H Absolute Neuts (auto) 3.3 Absolute Nucleated RBC 0.000 Nucleated RBC % (auto) 0.0 Sodium Potassium Chloride Carbon Dioxide Anion Gap BUN Creatinine 0.60 Estim Creat Clear Calc 205.8 Estimated GFR > 60 POC Glucose 129 H 128 H Random Glucose Calcium Random Vancomycin 03/11/25 07:20 WBC RBC Hgb Hct MCV MCH MCHC RDW Plt Count MPV Immature Gran % (Auto) Neut % (Auto) Lymph % (Auto) Harvey % (Auto) Eos % (Auto) Baso % (Auto) Lymph # (Auto) Harvey # (Auto) Eos # (Auto) Baso # (Auto) Abs Immat Gran (auto) Absolute Neuts (auto) Absolute Nucleated RBC Nucleated RBC % (auto) Sodium Potassium Chloride Carbon Dioxide Anion Gap BUN Creatinine Estim Creat Clear Calc Estimated GFR POC Glucose 125 H Random Glucose Calcium Random Vancomycin Preliminary micro results at discharge 03/08/25 08:37 Blood Culture - Preliminary Blood - Venous No growth after 48 hours. 03/08/25 08:37 Blood Culture - Preliminary Blood - Venous No growth after 48 hours. Discharge Plan Discharge Anticipated Discharge Date/Time: 03/11/25 07:54 Patient Disposition: Left Against Medical Advice Discharge Diagnosis: Gi Bleeding, esophageal ulcer Referrals: Dandre Shannon MD [Physician, Gastroenterology] - 1 Week Physician,None [Primary Care Provider, Medical] - 1 Week Discharge Medications: New doxycycline monohydrate 100 mg capsule 100 mg PO DAILY Qty: 12 0RF omeprazole 20 mg capsule,delayed release(DR/EC) 20 mg PO BID Qty: 180 0RF Continued quetiapine 300 mg tablet 300 mg PO BEDTIME glipizide 5 mg tablet 2.5 mg PO BIDAC pregabalin 225 mg capsule 225 mg PO BID lamotrigine 25 mg tablet 25 mg PO DAILY folic acid 1 mg tablet 1 mg PO DAILY atorvastatin 40 mg tablet 40 mg PO DAILY lisinopril 5 mg tablet 5 mg PO DAILY escitalopram oxalate 10 mg tablet 10 mg PO DAILY Discharge Orders: Discharge Order (Routine); Ordered 03/11/25 Ordered By: Brian Lyons Diet: Advance to usual diet Activity on Discharge: As tolerated Print Language: Macedonian Care Plan Goals: anemia work up Health Concerns: esophageal ulcer, anemia, cellulitis of foot, sacral ulcer Plan of Treatment: take Doxycyline for cellulitis of the foot Call Dr. Shannon office and arrange for colonoscopy You understand you left against medical advise and therefore planned testing could not be done to fully evaluate your condition and assume all responsibilities for your health, please make a prompt arragment to see you primary care physician in a timely manner, within a week Assessment: see above
--- NOTE | 2025-03-11 08:51 | PC.NURSE ---
AMA: Pt alerted LICENSE REGISTRATION EXAMINER and RN he wanted to leave AMA d/t own reasons, stated he can continue his care as an outpatient. MD alerted and spoke with pt who stated he understood he is leaving against medical advice. Pt arranged his own transportation.
[2025-03-11 09:29] LABS: CDiff Gene PCR NEGATIVE (Negative)
--- NOTE | 2025-03-11 10:33 | MHC.CM.PN ---
CM INFORMED PT WAS PLANNING TO LEAVE AMA [facility]IA [employer] CM MET WITH PT WHO REPORTS HE FEELS COMFORTABLE TRANSPORTING VIA [employer] AND HIS NEIGHBOR WILL MEET HIM AT THE CAR WITH HIS WHEEL CHAIR PT STATES HE JUST HAS TOO MUCH GOING ON AT HOME AND NEEDS TO GO
[2025-03-11 10:56] LABS: E. coli EAEC Not Detected (Not Detect.); E. coli EPEC Not Detected (Not Detect.); E. coli ETEC Not Detected (Not Detect.); E. coli STEC Not Detected (Not Detect.); Shigella sp./EIEC Not Detected (Not Detect.)
== END 2025-03-11 08:34 | disposition left against medical advice (07) | DRG 381 ==
LOC: HO.ED 11:45 → HO.EDOVER 12:25 → HO.S3 15:51
PROVIDERS: Internal Medicine; Physician Assistant Medical; Radiology Diagnostic Radiology; Student in an Organized Health Care Education/Training Program; Admitting Provider Internal Medicine Gastroenterology; Emergency Provider Emergency Medicine; Visit Provider Internal Medicine
PROC: 0DJ08ZZ Inspection of Upper Intestinal Tract, Via Natural or Artificial Opening Endoscopic (ICD-10-PCS; CPT 43235; principal; 2025-03-09 12:10)
DX: K22.11 Ulcer of esophagus with bleeding (principal); K76.6 Portal hypertension; M46.28 Osteomyelitis of vertebra, sacral and sacrococcygeal region; L03.116 Cellulitis of left lower limb; E11.42 Type 2 diabetes mellitus with diabetic polyneuropathy; K29.71 Gastritis, unspecified, with bleeding; K29.81 Duodenitis with bleeding; F10.10 Alcohol abuse, uncomplicated; K76.0 Fatty (change of) liver, not elsewhere classified; E11.621 Type 2 diabetes mellitus with foot ulcer; L97.529 Non-pressure chronic ulcer of other part of left foot with unspecified severity; L89.152 Pressure ulcer of sacral region, stage 2; K31.89 Other diseases of stomach and duodenum; E78.5 Hyperlipidemia, unspecified; F17.210 Nicotine dependence, cigarettes, uncomplicated; Z99.3 Dependence on wheelchair; Z89.511 Acquired absence of right leg below knee; Z71.6 Tobacco abuse counseling; Z79.84 Long term (current) use of oral hypoglycemic drugs; Z79.899 Other long term (current) drug therapy
CPT/HCPCS: 36415; 73630; 74178; 80048; 80076; 80202; 80307; 81001; 82272; 82565; 82607; 82728; 82746; 82947; 83540; 83605; 83690; 83735; 85025; 85027; 85045; 85610; 86140; 87040; 87493; 87507; 88305; 88342; 93005; 99285; J0696; J1171; J2003; J2470; J2543; J2560; J2704; J3374; J3411; J7120; Q9967

== ENCOUNTER → 2025-03-08 07:29 | Outpatient (BNV) | payer MEDICARE, MEDICAID, SELFPAY | PROVIDERS: Admitting Provider Internal Medicine; Emergency Provider Emergency Medicine; Visit Provider Internal Medicine | DX: I25.2 Old myocardial infarction (principal) | CPT/HCPCS: 93010 ==

== ENCOUNTER → 2025-03-08 08:21 | Outpatient (BNV) | payer MEDICARE, MEDICAID, SELFPAY | PROVIDERS: Visit Provider Radiology Diagnostic Radiology | DX: K80.20 Calculus of gallbladder without cholecystitis without obstruction (principal); K57.30 Diverticulosis of large intestine without perforation or abscess without bleeding; K76.0 Fatty (change of) liver, not elsewhere classified; L89.200 Pressure ulcer of unspecified hip, unstageable; D35.02 Benign neoplasm of left adrenal gland; M77.32 Calcaneal spur, left foot | CPT/HCPCS: 73630; 74178 ==

== ENCOUNTER → 2025-03-08 11:40 | Outpatient (BNV) | payer MEDICARE, MEDICAID, SELFPAY | PROVIDERS: Admitting Provider Internal Medicine; Emergency Provider Emergency Medicine; Visit Provider Internal Medicine | DX: K92.2 Gastrointestinal hemorrhage, unspecified (principal) | CPT/HCPCS: 99223; 99232; 99239 ==

== ENCOUNTER → 2025-03-08 11:40 | Outpatient (BNV) | payer MEDICARE, MEDICAID, SELFPAY | PROVIDERS: Admitting Provider Internal Medicine Gastroenterology; Emergency Provider Emergency Medicine; Visit Provider Internal Medicine Gastroenterology | DX: K76.6 Portal hypertension (principal); K31.89 Other diseases of stomach and duodenum; K22.10 Ulcer of esophagus without bleeding; K29.70 Gastritis, unspecified, without bleeding; K29.80 Duodenitis without bleeding; D62 Acute posthemorrhagic anemia | CPT/HCPCS: 43239 ==

== ENCOUNTER → 2025-03-08 11:40 | Outpatient (BNV) | payer MEDICARE, MEDICAID, SELFPAY | PROVIDERS: Admitting Provider Internal Medicine Gastroenterology; Emergency Provider Emergency Medicine; Visit Provider Surgery | DX: L89.152 Pressure ulcer of sacral region, stage 2 (principal); L03.116 Cellulitis of left lower limb | CPT/HCPCS: 99222; 99232 ==

== ENCOUNTER 2025-04-01 11:10 | Emergency (ER) | payer MEDICARE, MEDICAID, SELFPAY ==
[2025-04-01] VITALS (8 sets, daily range): BP systolic 108–148; BP diastolic 71–90; PULSE 94–122; RESP 18; TEMP 35.7–36.6; O2SAT 94–98; BMI 35.6
--- NOTE | ~2025-04-01 | XR_ITS ---
CLINICAL HISTORY: pain, fall 3 view left foot Comparison: 03/08/2025 Findings: No evidence of acute fracture. Partial amputation of the 1st and 2nd digits has been performed as before. Stable erosion within the distal aspect of the proximal phalanx of the 3rd digit. Periarticular osteophyte formation at the tibiotalar, talonavicular, naviculocuneiform, and subtalar joints. Calcaneal spurring. Prominent ossific focus at the posterior superior calcaneus as before. No significant arthritic change or erosions. No ankle effusion. No radiopaque foreign body. IMPRESSION: 1. No acute fracture. 2. Stable erosions within the 3rd digit, possibly indicating osteomyelitis. This document has been electronically signed by: Jd Box MD on 04/01/2025 13:34:04
--- NOTE | ~2025-04-01 | XR_ITS ---
CLINICAL HISTORY: pain 4 view left knee Comparison: CR - XR KNEE LT 4V - 02/02/25 18:15 EDT Findings: No fractures or dislocations. Tricompartmental periarticular osteophyte formation, indicating osteoarthritis. No joint effusion. No radiopaque foreign body. IMPRESSION: 1. No acute findings. This document has been electronically signed by: Jd Box MD on 04/01/2025 13:26:18
--- NOTE | ~2025-04-01 | CT_ITS ---
CLINICAL HISTORY: ?osteomyelitis 3rd digit CT of the left foot with contrast Comparison: CR - XR FOOT LT MIN 3V - 04/01/25 13:08 EDT CR/NH/SR - XR FOOT 3 OR MORE VIEWS LEFT - 03/08/25 08:34 EDT Findings: Examination degraded by motion artifact. Visualized soft tissues are unremarkable. No acute fracture. Prominent ossification at the calcaneal insertion of the Achilles, as before. Eriarticular osteophyte formation at the tibiotalar, talonavicular, naviculocuneiform, and subtalar joints. Calcaneal spurring. Joint space narrowing and periarticular osteophyte formation at the 1st metatarsophalangeal joint as well as the interphalangeal joints of the digits. Amputations of the distal phalanx of the 1st digit as well as the middle and distal phalanxes of the 2nd digit as before. Erosion involving the distal aspect of the proximal phalanx of the 3rd digit is present as seen by plain film, suboptimally evaluated secondary to motion artifact. IMPRESSION: 1. Suboptimal evaluation demonstrating no change in 3rd digit erosion as described above, compatible with osteomyelitis in the appropriate clinical setting. 2. Postsurgical sequelae. 3. Osteoarthritis. This document has been electronically signed by: Jd Box MD on 04/01/2025 15:28:23
--- NOTE | ~2025-04-01 | XR_ITS ---
CLINICAL HISTORY: pain, fall 2 view left femur Comparison: None provided Findings: No fractures or dislocations. No knee effusion. Periarticular osteophyte formation at the left hip joint s. Tricompartmental periarticular osteophyte formation at the knee joint, indicating osteoarthritis. No radiopaque foreign body. IMPRESSION: 1. Normal left femur This document has been electronically signed by: Jd Box MD on 04/01/2025 13:27:42
--- NOTE | ~2025-04-01 | CT_ITS ---
CLINICAL HISTORY: sacral wound, L hip pain CT abdomen and pelvis with contrast Comparison: CT - CT ABDOMEN PELVIS W IV CON - 04/01/25 14:[address]/SC/SR - CT ABDOMEN PELVIS WITHOUT THEN WITH IV CONTRAST - 03/08/25 09:58 EDT Findings: No consolidation or effusion. Cholelithiasis. No evidence of acute cholecystitis. Nodular hepatic contour without focal mass. Stable left adrenal nodules demonstrating Hounsfield units less than 10, indicating adenomata. Solid organs are otherwise within normal limits. No bowel obstruction, pneumoperitoneum, or pneumatosis. Pelvic contents unremarkable. Normal appendix. The bones are intact. Soft tissue density within the bilateral posterior gluteal soft tissues overlying the ischia, as before. Posterior midline soft tissue defect overlying the sacrococcygeal junction extending to the posterior cortex of the sacrococcygeal junction with mild associated cortical irregularity. Right hip arthroplasty. IMPRESSION: 1. Findings which could indicate mild/early osteomyelitis at the sacrococcygeal junction. 2. Bilateral ischial wounds. 3. Cirrhosis. 4. Cholelithiasis. 5. Stable left adrenal adenomata. This document has been electronically signed by: Jd Box MD on 04/01/2025 15:33:01
--- NOTE | ~2025-04-01 | XR_ITS ---
CLINICAL HISTORY: pain, fall 1 view pelvis Comparison: None provided Findings: No acute fracture or dislocation. Right hip arthroplasty. Joint space narrowing and periarticular osteophyte formation at the left hip. Soft tissues are unremarkable. IMPRESSION: 1. No acute findings. This document has been electronically signed by: Jd Box MD on 04/01/2025 13:25:24
--- NOTE | ~2025-04-01 | XR_ITS ---
CLINICAL HISTORY: pain, fall 2 view left tibia-fibula Comparison: None provided Findings No fractures or dislocations. No joint effusion. No significant arthritic change. No radiopaque foreign body. IMPRESSION: 1. Normal left tibia-fibula This document has been electronically signed by: Jd Box MD on 04/01/2025 13:27:07
--- NOTE | 2025-04-01 11:24 | PC.NURSE ---
patient a&ox3, endorses 9/10 lle pain s/p fall, pt hx rt bka as well. former etoh use and admits to cocain use last used 10 days ago and since was in a rehab facility. pt awaiting provider evaluation, plan of care ongoing
--- NOTE | 2025-04-01 12:01 | ED.FALL ---
HPI - Fall General Chief Complaint: Fall Stated Complaint: SLIP/FALL ON 10 STEPS,LLE/BACK PAIN,-LOC PER EMS Time Seen by Provider: 04/01/25 11:58 Source: patient and RN notes reviewed Mode of arrival: ambulatory Limitations: no limitations History of Present Illness ED Provider: Aliyah Modi PA-C HPI Narrative: This is a 40-year-old male brought in by ambulance with a past medical history of GBS, wheelchair-bound, right BKA, type 2 diabetes mellitus, chronic sacral ulcer, osteomyelitis, C diff infection, liver steatosis, ongoing alcohol abuse, PTSD and bipolar disorder, presenting with concerns of low back pain and leg pain status post mechanical fall which occurred at 6:00 a.m. this morning. The patient is normally wheelchair-bound. They live alone and were trying to scoot down the stairs when they slipped down approximately 10 steps while the left leg was dragging behind them. Patient did not experience any chest pain, shortness for breath, dizziness, lightheadedness, or visual changes prior to the fall. The patient currently has pain in the left inner groin that radiates down through the leg, as well as pain in the buttocks. Denies headaches, fevers, chills, shortness of breath, chest pain, loss of consciousness, or head strike. Assessment for numbness or tingling is limited due to patient's history of diabetic neuropathy and limited sensation in the left lower extremity at baseline. Patient also has concern for a ?new opening? in his sacrum where he has previously received repair for a sacral decubitus ulcer. He does not currently receive wound care. Patient explains that his father was previously his caregiver, however he has 3 months prior. Patient expresses discontent with their current [employer] at home, and is concerned because he is at risk for eviction from his place of living. Patient is not on anticoagulation. MD complaint: fall Onset (ago): hour(s) Fall from: down stairs (#) Fall witnessed: no Place fall occurred: home Loss of consciousness: none Prolonged down time: no Symptoms prior to fall: none Context: tripped/slipped Location of injury: back Location of injury - extremities: left: lower leg Severity: moderate Quality: aching Associated symptoms (after fall): denies Related Data Home Medications ?Medication ?Instructions ?Recorded ?Confirmed glipizide 5 mg tablet 2.5 mg PO BIDAC 02/02/25 04/01/25 pregabalin 225 mg capsule 225 mg PO BID 02/02/25 04/01/25 quetiapine 300 mg tablet 300 mg PO BEDTIME 02/02/25 04/01/25 folic acid 1 mg tablet 1 mg PO DAILY 03/08/25 04/01/25 lamotrigine 25 mg tablet 25 mg PO DAILY 03/08/25 04/01/25 lisinopril 5 mg tablet 5 mg PO DAILY 03/08/25 04/01/25 omeprazole 40 mg capsule,delayed 40 mg PO BID@0630,1630 04/01/25 04/01/25 release ondansetron HCl 4 mg tablet 4 mg PO BID PRN nausea 04/01/25 04/01/25 sertraline 100 mg tablet 100 mg PO DAILY depressive disorder 04/01/25 04/01/25 sucralfate 1 gram tablet 1 g PO QID 04/01/25 04/01/25 Previous Rx's ?Medication ?Instructions ?Recorded oxycodone 5 mg tablet 5 mg PO Q8H PRN severe pain (scale 04/02/25 score 7-10) #9 tabs Allergies Allergy/AdvReac Type Severity Reaction Status Date / Time baclofen Allergy Hives Verified 04/01/25 11:21 escitalopram (From Lexapro) Allergy Vomiting Verified 04/01/25 11:21 lithium Allergy Unresponsiv Verified 04/01/25 11:21 e metformin Allergy Unknown Verified 04/01/25 11:21 morphine Allergy Hives Verified 04/01/25 11:21 sulfamethoxazole (From Allergy Hives Verified 04/01/25 11:21 Bactrim) trimethoprim (From Bactrim) Allergy Hives Verified 04/01/25 11:21 Review of Systems Review of Systems: Yes all other systems are reviewed and are negative Constitutional: Constitutional: Denies body ache(s), Denies chills, Denies fever(s) and Denies weakness Eyes: Eyes: Denies loss of vision ENT: Denies vertigo and Denies dizziness Cardiovascular: Cardiovascular: Denies chest pain and Denies dyspnea Respiratory: Respiratory: Denies dyspnea Gastrointestinal: Gastrointestinal: Reports no additional gastrointestinal complaints Genitourinary: Genitourinary: Reports no additional male genitourinary complaints Musculoskeletal: Musculoskeletal: Reports as per HPI and Reports radiating pain into limb Neurologic: Denies vertigo, Denies dizziness, Denies loss of vision and Denies weakness [facility], [facility] Past Medical History Medical History (Updated 04/02/25 @ 08:41 by OLVIN Greco) Sacral decubitus ulcer Osteomyelitis of foot Decubitus ulcer Amputation of one or more toes Aftercare following right hip joint replacement surgery Bipolar disorder PTSD (post-traumatic stress disorder) Sacral decubitus ulcer Peripheral neuropathy Non-insulin dependent type 2 diabetes mellitus Guillain-Katy Surgical History History of esophagogastroduodenoscopy (EGD) Hx of laminectomy History of total hip replacement Hx of right BKA Social History Social History Household Members: None Housing: House Are you a primary care rep to a significant other at home: No Do you presently have visiting nurse or other home services: No Alcohol intake: former Comment: stand pivot to luz marina avila Patient Tobacco Use Status: Current everyday Tobacco user Tobacco use type: Cigarette Cigarette Packs Per Day: 1 Cigarettes Per Day: 3 Years Smoked: 29 years Smoked in Last 30 Days: Yes Second Hand Smoke Exposure: No Use of substances other than those prescribed or required for medical reasons: Yes Substance Use Type: Crack/Cocaine Advance Directives: No Advance Directives Information Provided: Yes Do you have a plan to hurt others: No Plan service: No Physical Exam Vital Signs: Vital Signs: Last Vital Signs Temp 98.8 F 04/02/25 07:58 Pulse 87 04/02/25 07:58 Resp 18 04/02/25 07:58 BP 121/74 04/02/25 07:58 Pulse Ox 96 04/02/25 07:58 O2 Del Method Room Air 04/02/25 07:58 BMI result Body Mass Index 35.6 Const: General: no acute distress and alert Orientation/consciousness: patient oriented x3 Limitations: wheelchair HEENT: Head: Yes normal to inspection, Yes normocephalic and Yes atraumatic Ears: hearing grossly normal bilaterally General nose exam: Normal external nose present Face and sinus: Yes normal facial exam Mouth: Normal oral and palatal mucosa present, oropharynx normal and moist mucous membranes Throat: Yes posterior oropharynx normal Eyes: General: appearance normal, both eyes and all related structures Eyelids: Yes eyelids normal Conjunctivae: conjunctivae normal Sclerae: sclerae normal Pupils: Equal, round and reactive pupils present EOM: EOMs intact bilaterally Neck: Other: No midline spine tenderness on examination. Neck: Yes normal visual inspection, Yes full ROM and Yes no lymphadenopathy Lymphatic: no lymphadenopathy noted Chest: Chest palpation & inspection: normal inspection of the chest Resp: Effort & Inspection: normal respiratory effort and able to speak in complete sentences Auscultation: clear to auscultation bilaterally, no crackles, no rales, no rhonchi and no wheezes Cardio: Rate: regular rate Rhythm: regular rhythm Heart sounds: S1 normal heart sound present and S2 normal heart sound present GI: Other: No ecchymosis seen. Inspection: Yes normal to inspection and No distended Palpation (GI): Soft to palpation, nontender, no guarding and not rigid Back/Spine/Pelvis: Other: Stage III decubitus ulcer of the right buttock, approximately 1 cm in diameter with surrounding maceration No bleeding or exudates Skin: Other: General skin exam: no rashes or lesions noted Trauma: no lacerations or abrasions Wounds: no wounds Neuro: General: patient oriented x3 and Unable to assess gait Cranial nerves: Yes CN's II-XII intact bilaterally, Yes Equal, round and reactive pupils present and Yes Bilaterally intact EOM present Cognition (Neuro): normal cognition Gait exam (Neuro): Unable to assess gait Motor exam (neuro): 5/5 motor strength present throughout and Pronator motor function not present Extrem: Other: Left lower extremity, with no obvious bony deformity or swelling. Patient has tenderness palpation along the anterior femur, no open wounds or lacerations. No bony abnormalities. Left knee with old eschar noted, no surrounding erythema. Diffusely tender, full ROM of the knee without difficulty. Mild tenderness palpation along the left hip, no bony step-off or deformity. Palpable pedal pulses. Right BKA noted. No erythema or warmth. General: Yes normal to inspection Right upper extremity: normal to inspection Left upper extremity: normal to inspection Right lower extremity: normal to inspection Left lower extremity: normal to inspection Course Reevaluation(s) Reevaluation #1: patient in physician observation overnight. he states he does not want to stay or be placed anywhere. he wants to be discharged because he is dealing with housing issues and needs to be present to get paperwork. CT scans reviewed showing ostium of the left 3rd toe and sacrum. They both appear chronic. Notes from his last admission were reviewed as well. He was interested in a toe amputation rather than prolonged IV antibiotics. Case was discussed with Dr. Hernandez, Dr. Arriaga and Dr. Page. Dr. Hernandez states patient can follow-up outpatient for evaluation of toe amputation. Per Dr. Cheyr patient does not require antibiotics for his conditions as they are chronic. He should f/u with [facility] for his sacrum where he usually goes. Results and plan d/w patient who agrees. Therefore he does not require inpatient level of care or admission to the hospital at this time. He is going to be discharged home. He states he has Services and plans to follow-up with [facility] and [facility] in the coming days to help with his housing situation. Physician observation discontinued at this time. Patient is stable for discharge home with outpatient follow-up. Time: 11:36 Medications Administered Generic Name Dose Route Start Last Admin Trade Name Freq PRN Reason Stop Dose Admin Folic Acid 1 mg 04/02/25 09:00 04/02/25 09:14 Folic Acid 1 Mg Tablet PO 1 mg DAILY CHERISE Administration Glipizide 2.5 mg 04/02/25 07:30 04/02/25 06:18 Glipizide 5 Mg Tablet PO 2.5 mg BIDAC CHERISE Administration Lamotrigine 25 mg 04/02/25 09:00 04/02/25 09:14 Lamotrigine 25 Mg Tablet PO 25 mg DAILY CHERISE Administration Lisinopril 5 mg 04/02/25 09:00 04/02/25 09:14 Lisinopril 5 Mg Tablet PO 5 mg DAILY CHERISE Administration Protocol Omeprazole 40 mg 04/02/25 06:30 04/02/25 06:18 Omeprazole 40 Mg Capsule. PO 40 mg BID@5730,5230 CHERISE Administration Oxycodone HCl 5 mg 04/01/25 19:28 04/02/25 05:04 Oxycodone Hcl Immed Release 5 Mg Tablet PO 5 mg Q6H PRN Administration Pain, Moderate(Pain Scale 4-6) Pregabalin 225 mg 04/01/25 21:00 04/02/25 09:14 Pregabalin 75 Mg Capsule PO 225 mg BID CHERISE Administration Quetiapine Fumarate 300 mg 04/01/25 21:00 04/01/25 20:34 Quetiapine Fumarate 300 Mg Tablet PO 300 mg BEDTIME CHERISE Administration Sertraline HCl 100 mg 04/02/25 09:00 04/02/25 09:14 Sertraline Hcl 100 Mg Tablet PO 100 mg DAILY CHERISE Administration Sucralfate 1 gm 04/01/25 21:00 04/02/25 09:13 Sucralfate 1 Gm Tablet PO 1 gm QID CHERISE Administration Discontinued Medications Generic Name Dose Route Start Last Admin Trade Name Freq PRN Reason Stop Dose Admin Hydromorphone HCl 1 mg 04/01/25 12:51 04/01/25 13:27 Hydromorphone Hcl 1 Mg/Ml Syringe IVPUSH 04/01/25 12:52 1 mg ONCE ONE Administration Protocol Hydromorphone HCl 1 mg 04/01/25 16:16 04/01/25 16:27 Hydromorphone Hcl 1 Mg/Ml Syringe IVPUSH 04/01/25 16:17 1 mg ONCE ONE Administration Protocol Hydromorphone HCl 1 mg 04/02/25 00:45 04/02/25 01:30 Hydromorphone Hcl 1 Mg/Ml Syringe IVPUSH 04/02/25 00:46 1 mg ONCE ONE Administration Protocol Acetaminophen 1,000 mg in 100 mls @ 400 mls/hr 04/01/25 12:50 04/01/25 13:38 Ofirmev IV 04/01/25 13:04 Infused ONCE ONE Infusion Piperacillin Sod/Tazobactam 50 mls @ 100 mls/hr 04/01/25 14:18 04/01/25 15:14 Sod 3.375 gm/ Sodium Chloride IV 04/01/25 14:47 Infused ONCE ONE Infusion Vancomycin HCl 2,000 mg in 500 mls @ 250 mls/hr 04/01/25 14:18 04/01/25 17:07 Vancomycin/Ns IV 04/01/25 16:17 Infused ONCE ONE Infusion Sodium Chloride 2,397 mls @ 2,397 mls/hr 04/01/25 14:18 04/01/25 16:02 Ns IV 04/01/25 15:17 Infused .Q1H STA Infusion Iohexol 100 ml 04/01/25 14:26 04/01/25 14:26 Iohexol 350 Mg/Ml 100 Ml Infus..Btl IV 04/01/25 14:27 100 ml ONCE ONE Administration Oxycodone HCl 10 mg 04/02/25 09:21 04/02/25 09:30 Oxycodone Hcl Immed Release 5 Mg Tablet PO 04/02/25 09:22 10 mg ONCE ONE Administration Medical Decision Making Medical Decision Making [facility] Narrative: 40-year-old male with a past medical history of GBS, wheelchair-bound, right BKA, type 2 diabetes mellitus, chronic sacral ulcer, osteomyelitis, C diff infection, liver steatosis, ongoing alcohol abuse, PTSD and bipolar disorder is brought to the ED by ambulance after a fall sustained at 6:00 a.m. this morning. Patient reports that he accidentally fell down 10 steps. No symptoms prior to the fall. Patient currently has pain in the groin, radiating through the leg, as well as the buttocks. Patient denies loss of consciousness or head strike. Neuro exam is within normal limits. Patient has no ecchymosis or skin breakdown of the proximal left lower extremity. The left side of the groin is tender to palpation as well as the buttocks. Plain films of the left lower extremity as well as the lower back will be ordered to evaluate for acute fractures. CT abdomen and pelvis with contrast will be ordered as well as CT of the left foot to further evaluate for osteomyelitis risk. Patient will require follow-up with case management as they are risk for homelessness and currently live alone, and require extra resources such as food and wound care. Course: 04/01/2025 1418 - x-ray returned, concerns for osteomyelitis of the left foot therefore lactic, blood cultures ordered. Also medicated with IV fluid bolus, Zosyn and vancomycin. Left foot with no obvious erythema, edema, unable to discern any pain secondary to decreased sensation from peripheral neuropathy. Strong DP pulse. Will obtain CT of the left foot in addition to CT of the abdomen to rule out any acute findings. 1617 - CT scan revealing mild/early osteomyelitis at the sacral coccygeal junction, bilateral ischial route wounds, cholelithiasis, cirrhosis, and stable left adrenal adenomata. Patient already receiving IV antibiotics. Given findings, he requires further medical management through admission. Labs revealed no leukocytosis, normocytic anemia with an H&H of 13/38.5, chemistry revealing no significant findings, lactic acid 1.6. 1813 - discussed case with hospitalist, they are unclear whether not this is new osteo of the sacralcoccygeal junction for not. Reached out to [facility], they will review images again for further input. 1919 - radiologist create an addendum, osteomyelitis is unchanged from previous CT scans. I discussed this case with my attending physician, Dr. Mcgarry. I ordered the CT scan of the abdomen and pelvis to rule out any abscess, cellulitis or fluid collection, this is negative, incidental finding of the SBO, which appears to be chronic. At this time, patient does not meet any admission criteria. Patient will be placed in physician observation pending PT Case Management as patient does not have an up resources at home, does not trust [employer], and feels as though he is needing more help at home. Oxycodone and Tylenol PRN orders placed. Differential Diagnosis Differential Diagnoses: The differential diagnosis associated with the presentation includes Fall Syncope Social determinants of health Admission/Observation Consideration of admission/observation: Escalation of care including admission/observation considered Lab Data MDM Lab Attestation statement: I reviewed the patient's lab results. See course 04/01/25 13:23 04/01/25 13:23 Labs: Lab Results 04/01/25 04/01/25 Range/Units 13:23 14:42 WBC 7.3 (4.8-10.8) X10*3/uL RBC 4.50 L (4.60-5.80) X10*6/uL Hgb 13.0 L (14.0-18.0) g/dl Hct 38.5 L (42.0-52.0) % MCV 85.6 (80.0-98.0) fL MCH 28.9 (27.0-33.0) pg MCHC 33.8 (31.0-36.0) g/dl RDW 14.6 (11.0-16.0) % Plt Count 212 D (160-400) X10*3/uL MPV 10.5 (9.4-12.4) fL Immature Gran % (Auto) 0.3 (0.0-0.4) % Neut % (Auto) 67.1 (45-73) % Lymph % (Auto) 23.4 (20-40) % [place] % (Auto) 6.7 (2-11) % Eos % (Auto) 2.1 (0-4) % Baso % (Auto) 0.4 (0-2) % Lymph # (Auto) 1.7 (1.2-4.9) X10*3/uL [place] # (Auto) 0.5 (0.1-1.2) X10*3/uL Eos # (Auto) 0.2 (0.0-0.4) X10*3/uL Baso # (Auto) 0.0 (0.0-0.2) X10*3/uL Abs Immat Gran (auto) 0.02 (0.00-0.03) X10*3/uL Absolute Neuts (auto) 4.9 (2.0-8.3) x10*3/uL Absolute Nucleated RBC 0.000 (0.0-0.012) X10*3/uL Nucleated RBC % (auto) 0.0 (0.0-0.2) /100WBC ESR 14 (0-15) MM/HR Sodium 142 (135-145) mmol/L Potassium 4.1 D (3.3-5.1) mmol/L Chloride 109 H (96-108) mmol/L Carbon Dioxide 23 (22-29) mmol/L Anion Gap 14 (12-20) BUN 13 (9-16) mg/dL Creatinine 0.64 (0.5-1.4) mg/dL Estim Creat Clear Calc 206.1 Estimated GFR > 60 Random Glucose 83 (60-115) mg/dL Lactic Acid 1.6 (0.5-2.0) mmol/L Calcium 9.0 D (8.4-10.2) mg/dL Magnesium 1.7 (1.6-2.6) mg/dL Total Bilirubin 0.3 (0.0-1.0) mg/dL Direct Bilirubin 0.1 (0.0-0.5) mg/dL AST 32 (5-37) U/L ALT 31 (0-40) U/L Alkaline Phosphatase 101 (39-117) U/L C-Reactive Protein 0.51 H (< or = 0.50) mg/dL Total Protein 7.0 (6.5-8.0) g/dL Albumin 4.2 (3.5-5.0) g/dL Radiology Impression Discussion of test interpretation with radiology: I have reviewed the radiologist's reading. Radiologist Impression: ADDENDUMThis document has been electronically signed by: Jd Box MD on 04/01/2025 15:33:01 ADDENDUM: CT abdomen and pelvis with contrast Comparison: CT - CT ABDOMEN PELVIS W IV CON - 04/01/25 14:[address]/FL/SR - CT ABDOMEN PELVIS WITHOUT THEN WITH IV CONTRAST - 03/08/25 09:58 EDT Findings: No consolidation or effusion. Cholelithiasis. No evidence of acute cholecystitis. Nodular hepatic contour without focal mass. Stable left adrenal nodules demonstrating Hounsfield units less than 10, indicating adenomata. Solid organs are otherwise within normal limits. No bowel obstruction, pneumoperitoneum, or pneumatosis. Pelvic contents unremarkable. Normal appendix. The bones are intact. Soft tissue density within the bilateral posterior gluteal soft tissues overlying the ischia, as before. Posterior midline soft tissue defect overlying the sacrococcygeal junction extending to the posterior cortex of the sacrococcygeal junction with mild associated cortical irregularity. Right hip arthroplasty. IMPRESSION: 1. Findings which could indicate mild/early osteomyelitis at the sacrococcygeal junction. No significant change compared to 02/12/2025 2. Bilateral ischial wounds. 3. Cirrhosis. 4. Cholelithiasis. 5. Stable left adrenal adenomata. Signed By: Jd Box MD This document has been electronically signed by: Jd Box MD on 04/01/2025 18:30:59 Addendum Dictated By: Jd Box MD Addendum Signed By: <Electronically signed by Jd Box MD in OV> 04/01/251830 Addendum Cosigned By: DD/ /16/1533 TD/TT: 04/01/2506/16/1830 CLINICAL HISTORY: sacral wound, L hip pain CT abdomen and pelvis with contrast Comparison: CT - CT ABDOMEN PELVIS W IV CON - 04/01/25 14:[address]/FL/SR - CT ABDOMEN PELVIS WITHOUT THEN WITH IV CONTRAST - 03/08/25 09:58 EDT Findings: No consolidation or effusion. Cholelithiasis. No evidence of acute cholecystitis. Nodular hepatic contour without focal mass. Stable left adrenal nodules demonstrating Hounsfield units less than 10, indicating adenomata. Solid organs are otherwise within normal limits. No bowel obstruction, pneumoperitoneum, or pneumatosis. Pelvic contents unremarkable. Normal appendix. The bones are intact. Soft tissue density within the bilateral posterior gluteal soft tissues overlying the ischia, as before. Posterior midline soft tissue defect overlying the sacrococcygeal junction extending to the posterior cortex of the sacrococcygeal junction with mild associated cortical irregularity. Right hip arthroplasty. IMPRESSION: 1. Findings which could indicate mild/early osteomyelitis at the sacrococcygeal junction. 2. Bilateral ischial wounds. 3. Cirrhosis. 4. Cholelithiasis. 5. Stable left adrenal adenomata. This document has been electronically signed by: Jd Box MD on 04/01/2025 15:33:01 Dictated By: Jd Box MD Critical Care Time Critical Care Time Critical Care Time: Yes Total Critical Care Time: 63 Attestation: I have personally provided critical care time exclusive of time spent on separately billable procedures. Time includes review of lab data, radiology results, discussion with consultants, and monitoring for potential decompensation. Intervention performed as documented. Discharge Plan Discharge Clinical Impression: Chronic osteomyelitis of sacrum, Chronic osteomyelitis of foot Fall Qualifiers: Encounter type: initial encounter Qualified Code(s): W19.XXXA - Unspecified fall, initial encounter Contusion of left leg Qualifiers: Encounter type: initial encounter Qualified Code(s): S80.12XA - Contusion of left lower leg, initial encounter Patient Disposition: Home, Self-Care Instructions: Osteomyelitis (ED), Fall Prevention for Older Adults (ED) Additional Instructions: The vascular surgeon Dr. Hernandez is recommending outpatient follow-up for the osteomyelitis of your toe with plans for an outpatient amputation. Call his office to arrange follow-up. The infectious disease doctor is not recommending antibiotics at this time, these are chronic conditions, including the findings of mild osteomyelitis of your sacrum. Usually follow[facility]up at [facility] for this and it is recommended that you follow back up with them. Follow-up with her primary care doctor as soon as possible. It is also recommended that you follow-up with pain management for chronic pain Take the prescribed oxycodone as needed for severe pain only. A 3 day course has been sent to the [facility] pharmacy in the [facility]. If you develop new or worsening symptoms call 911 or come back to the ER for further evaluation. Prescriptions: New oxycodone 5 mg tablet 5 mg PO Q8H PRN (Reason: severe pain (scale score 7-10)) Qty: 9 0RF Rx Instructions: Partial Fill upon patient request. No Action quetiapine 300 mg tablet 300 mg PO BEDTIME glipizide 5 mg tablet 2.5 mg PO BIDAC pregabalin 225 mg capsule 225 mg PO BID lamotrigine 25 mg tablet 25 mg PO DAILY folic acid 1 mg tablet 1 mg PO DAILY lisinopril 5 mg tablet 5 mg PO DAILY sucralfate 1 gram tablet 1 g PO QID ondansetron HCl 4 mg tablet 4 mg PO BID PRN (Reason: nausea) sertraline 100 mg tablet 100 mg PO DAILY omeprazole 40 mg capsule,delayed release(DR/EC) 40 mg PO BID@0630,1630 Referrals: [facility] Pain Management [Provider Group, Pain Management] [facility] Vascular Services [Provider Group, Vascular Surgery] Kelly Jackson NP [Primary Care Provider, Internal Medicine] Print Language: Norwegian
--- NOTE | 2025-04-01 13:30 | PC.NURSE ---
pt medicated for 04/01 pain call sanchez within reach, plan of care ongoing
[2025-04-01 13:31] LABS: Hematocrit 38.5 % (42.0-52.0); Hemoglobin 13.0 g/dl (14.0-18.0); Imm Gran Abs Auto 0.02 X10*3/uL (0.00-0.03); Imm Gran Pct Auto 0.3 % (0.0-0.4); Lymphocytes Absolute Auto 1.7 X10*3/uL (1.2-4.9); MANUAL DIFF FLAG NO; Mean Corpuscular HGB Conc 33.8 g/dl (31.0-36.0); Mean Corpuscular Hemoglobin 28.9 pg (27.0-33.0); Mean Corpuscular Volume 85.6 fL (80.0-98.0); NRBC Abs Auto 0.000 X10*3/uL (0.0-0.012); NRBC Pct Auto 0.0 /100WBC (0.0-0.2); Platelet Count 212 X10*3/uL (160-400); Red Blood Count 4.50 X10*6/uL (4.60-5.80); White Blood Count 7.3 X10*3/uL (4.8-10.8)
[2025-04-01 13:51] LABS: Alanine Aminotransferase 31 U/L (0-40); Albumin Level 4.2 g/dL (3.5-5.0); Alkaline Phosphatase 101 U/L (39-117); Anion Gap 14 (12-20); Aspartate Amino Transferase 32 U/L (5-37); Blood Urea Nitrogen 13 mg/dL (9-16); Calcium 9.0 mg/dL (8.4-10.2); Carbon Dioxide 23 mmol/L (22-29); Chloride 109 mmol/L (96-108); Creatinine Clr Calc Pharmacy 206.1; Estimated Glomerular Filt Rate > 60; Magnesium 1.7 mg/dL (1.6-2.6); Potassium 4.1 mmol/L (3.3-5.1); Sodium 142 mmol/L (135-145); Total Protein 7.0 g/dL (6.5-8.0)
[2025-04-01] MEDS: iohexoL 350 MG/ML 100 ML INFUS..BTL IV (14:26)
[2025-04-01] MEDS: 0.9 % Sodium Chloride 2,397 ML 2397 ML IV (15:02)
[2025-04-01] MEDS: vancomycin/NS 2,000 MG/500 ML PLAST..BAG 250 MG IV (15:07)
--- NOTE | 2025-04-01 15:53 | PC.NURSE ---
pt requesting more pain medication stating his pain has increased back to where it previously was, provider notified
--- NOTE | 2025-04-01 16:30 | PC.NURSE ---
pt medicated for pain per order
--- NOTE | 2025-04-01 16:49 | PC.NURSE ---
Regular diet ordered for pt, called kitchen at x [phone] confirmed
--- NOTE | 2025-04-01 17:15 | PHA.MEDREC ---
Addendum entered by Marcellus Chicas PharmD 04/01/25 17:18: reviewed Original Note: Pharmacy Consult ? Medication Reconciliation Pharmacy has completed the medication reconciliation. Spoke to patient to confirm med list. Patient states he is no longer taking Atorvastatin 40 mg, Escitalopram 10 mg, and Lisinopril 5 mg. patient last had his medications yesterday.
[2025-04-01] MEDS: oxyCODONE HCl Immed Release 5 MG TABLET PO (21:51)
[2025-04-02 01:36] VITALS: BP 115/83; PULSE 90; RESP 18; O2SAT 97
--- NOTE | 2025-04-02 03:13 | PC.NURSE ---
patient awake, respirations even and unlabored. no signs/symptoms of distress noted. requesting sandwich and cranberry juice - provided for patient. awaiting PT/CM. denies other complaints, call sanchez within reach
[2025-04-02] MEDS: oxyCODONE HCl Immed Release 5 MG TABLET PO (05:04)
--- NOTE | 2025-04-02 05:14 | PC.NURSE ---
unsure if he will be able to stay in hospital for pt/cm at this time. believes he is to be served his eviction notice today and expresses anxiety over the situation.
[2025-04-02 07:58] VITALS: BP 121/74; PULSE 87; RESP 18; TEMP 37.1; O2SAT 96
[2025-04-02] MEDS: oxyCODONE HCl Immed Release 5 MG TABLET 10 MG PO (09:30)
--- NOTE | 2025-04-02 10:58 | MHC.CM.PN ---
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
[2025-04-02 11:44] VITALS: BP 121/74; PULSE 87; RESP 18; TEMP 37.1; O2SAT 96
== END 2025-04-02 11:46 | disposition home or self-care (01) ==
PROVIDERS: Physician Assistant Medical; Emergency Provider Emergency Medicine; PCP Nurse Practitioner Family
DX: S39.92XA Unspecified injury of lower back, initial encounter (principal); M86.8X0 Other osteomyelitis, multiple sites; R26.2 Difficulty in walking, not elsewhere classified; M25.562 Pain in left knee; R11.0 Nausea; R10.2 Pelvic and perineal pain; W10.9XXA Fall (on) (from) unspecified stairs and steps, initial encounter; Y93.9 Activity, unspecified; Y92.9 Unspecified place or not applicable; Y99.8 Other external cause status; Z79.899 Other long term (current) drug therapy
CPT/HCPCS: 36415; 72170; 73552; 73564; 73590; 73630; 73701; 74177; 80048; 80076; 83605; 83735; 85025; 85652; 86140; 87040; 96361; 96374; 96375; 96376; 97161; 99285; J0131; J1171; J2543; J3373; Q9967

== ENCOUNTER → 2025-04-01 12:46 | Outpatient (BNV) | payer MEDICARE, MEDICAID, SELFPAY | PROVIDERS: Emergency Provider Emergency Medicine; PCP Nurse Practitioner Family; Visit Provider Radiology Diagnostic Radiology | DX: L89.159 Pressure ulcer of sacral region, unspecified stage (principal); K74.60 Unspecified cirrhosis of liver; M25.562 Pain in left knee; M79.605 Pain in left leg; M25.551 Pain in right hip; M25.552 Pain in left hip; M79.672 Pain in left foot; W19.XXXA Unspecified fall, initial encounter; D35.02 Benign neoplasm of left adrenal gland; K80.20 Calculus of gallbladder without cholecystitis without obstruction; M25.522 Pain in left elbow | CPT/HCPCS: 72170; 73552; 73564; 73590; 73630; 73701; 74177 ==

== ENCOUNTER 2025-04-06 02:16 | Emergency (ER) | payer MEDICARE, MEDICAID, SELFPAY ==
--- NOTE | 2025-04-06 | ECG_ITS ---
Test Reason : TACHY Blood Pressure : */* mmHG Vent. Rate : 124 BPM Atrial Rate : 124 BPM P-R Int : 144 ms QRS Dur : 80 ms QT Int : 316 ms P-R-T Axes : 45 -18 16 degrees QTcB Int : 453 ms Sinus tachycardia Cannot rule out Anterior infarct (cited on or before 02-Nov-2020) Abnormal ECG When compared with ECG of 08-Mar-2025 07:37, Nonspecific T wave abnormality, improved in Anterior leads Referred By: Generic ED Physician Electronically Signed By: Renny Calle
[2025-04-06 02:21] VITALS: BP 127/86; BP 150/102; PULSE 134; PULSE 140; RESP 20; TEMP 36.7; O2SAT 97; O2SAT 98; BMI 35.0
[2025-04-06 03:05] LABS: MANUAL DIFF FLAG NO
[2025-04-06 03:07] LABS: Hematocrit 35.9 % (42.0-52.0); Hemoglobin 12.0 g/dl (14.0-18.0); Imm Gran Abs Auto 0.03 X10*3/uL (0.00-0.03); Imm Gran Pct Auto 0.5 % (0.0-0.4); Lymphocytes Absolute Auto 1.7 X10*3/uL (1.2-4.9); Mean Corpuscular HGB Conc 33.4 g/dl (31.0-36.0); Mean Corpuscular Hemoglobin 28.2 pg (27.0-33.0); Mean Corpuscular Volume 84.3 fL (80.0-98.0); NRBC Abs Auto 0.000 X10*3/uL (0.0-0.012); NRBC Pct Auto 0.0 /100WBC (0.0-0.2); Platelet Count 192 X10*3/uL (160-400); Red Blood Count 4.26 X10*6/uL (4.60-5.80); White Blood Count 5.7 X10*3/uL (4.8-10.8)
[2025-04-06 03:19] LABS: Alanine Aminotransferase 24 U/L (0-40); Albumin Level 4.4 g/dL (3.5-5.0); Alkaline Phosphatase 117 U/L (39-117); Anion Gap 16 (12-20); Aspartate Amino Transferase 24 U/L (5-37); Blood Urea Nitrogen 7 mg/dL (9-16); Calcium 9.7 mg/dL (8.4-10.2); Carbon Dioxide 22 mmol/L (22-29); Chloride 108 mmol/L (96-108); Creatinine Clr Calc Pharmacy 217.8; Estimated Glomerular Filt Rate > 60; Potassium 3.6 mmol/L (3.3-5.1); Sodium 142 mmol/L (135-145); Total Protein 6.9 g/dL (6.5-8.0)
[2025-04-06 03:43] LABS: Resp Syncy Virus RNA Qual PCR NEGATIVE (Negative); SARS COV2 PCR INHOUSE NEGATIVE (Negative)
[2025-04-06 05:03] LABS: Reflex Lactate? Lactic Acid Added
[2025-04-06 05:38] VITALS: BP 129/83; PULSE 108; RESP 18; TEMP 36.6; O2SAT 98
--- NOTE | 2025-04-06 05:40 | PC.NURSE ---
0330- made aware of new pt in room, HR 130's lactic 2.2. no new orders. Iv #20 R-hand repeat lactic drawn and sent to lab.
[2025-04-06 05:57] LABS: ~Lactic Acid-LAB USE ONLY 2.5 mmol/L (0.5-2.0)
--- NOTE | 2025-04-06 06:10 | ED_ITS ---
HPI - General Adult General Chief complaint: General Medical Stated complaint: Wound Time Seen by Provider: 04/06/25 05:57 Source: patient and EMS Mode of arrival: EMS Limitations: no limitations History of Present Illness ED Provider: Dr. Mariola Chicas HPI narrative: Patient comes to the emergency room complaining of increasing drainage of a sacral wound. Patient states that he is concerned that he is getting a big did and he does not know what to do. Patient reports chills, nausea. Of note, patient was seen here 5 days ago for the same complaint. Related Data Home Medications ?Medication ?Instructions ?Recorded ?Confirmed glipizide 5 mg tablet 2.5 mg PO BIDAC 02/02/2506/16 pregabalin 225 mg capsule 225 mg PO BID 02/02/2504/01 quetiapine 300 mg tablet 300 mg PO BEDTIME 02/02/25 0 04/01/25 folic acid 1 mg tablet 1 mg PO DAILY 03/08/2504/01 lamotrigine 25 mg tablet 25 mg PO DAILY 03/08/2503/23 lisinopril 5 mg tablet 5 mg PO DAILY 03/08/2504/01 omeprazole 40 mg capsule,delayed 40 mg PO BID@0630,163 0 04/01/25 04/01/25 release ondansetron HCl 4 mg tablet 4 mg PO BID PRN nausea 06/1604/01/25 sertraline 100 mg tablet 100 mg PO DAILY depressive d isorder 04/01/25 04/01/25 sucralfate 1 gram tablet 1 g PO QID 04/01/25 04/01/25 Previous Rx's ?Medication ?Instructions ?Recorded oxycodone 5 mg tablet 5 mg PO Q8H PRN severe pain (scale 04/02/25 score 7-10) #9 tabs oxycodone 5 mg tablet 5 mg PO BID PRN pain #8 tabs 04/06/25 Allergies Allergy/AdvReac Type Severity Reaction Status Date / Time baclofen Allergy Hives Verified 04/06/25 02:33 escitalopram (From Lexapro) Allergy Vomiting Verified 04/06/25 02:33 lithium Allergy Unresponsiv Verified 04/06/25 02:33 e metformin Allergy Unknown Verified 04/06/25 02:33 morphine Allergy Hives Verified 04/06/25 02:33 sulfamethoxazole (From Allergy Hives Verified 04/06/25 02:33 Bactrim) tramadol Allergy Hives Verified 04/06/25 02:33 trimethoprim (From Bactrim) Allergy Hives Verified 04/06/25 02:33 Review of Systems 2 Review of Systems: Constitutional : No Weight loss, No Fever, No Chills, No Night Sweats, No Fatigue, No Malaise ENT/Mouth : No Hearing loss, No Ear Pain, No Nasal Congestion, No Sinus Pain, No Hoarseness, No sore throat, No Rhinorrhea, No Swallowing Difficulty Eyes: No Eye Pain, No Swelling, No Redness, No Foreign Body, No Discharge, No Vision Changes Cardiovascular : No Chest Pain, No SOB, No Dyspnea on Exertion, No Orthopnea, No Edema, No Palpitations Respiratory : No Cough, No Sputum, No Wheezing, No Smoke Exposure, No Dyspnea Gastrointestinal : No Nausea, No Vomiting, No Diarrhea, No Constipation, No abdominal Pain, No Hematochezia, No Melena Genitourinary : no irregular bleeding, No Dysuria, No Urinary Frequency, No Hematuria, No Urinary Incontinence, No Urgency, No Flank Pain, No Urinary Flow Changes, No Hesitancy Musculoskeletal : No joint pain, No Myalgias, No Joint Swelling Skin : Complaining of chronic sacral wounds Neuro : No Weakness, No Numbness, No Paresthesias, No Loss of Consciousness, No Dizziness, No Headache Psych : No Anxiety/Panic, No Depression, No SI/HI/AH/VH, complaining of being a big did a does not know what is going to happened to him Heme/Lymph: No Bruising, No Bleeding,No Lymphadenopathy Endocrine : No Polyuria, No Polydipsia, No Temperature Intolerance PMFSH Past Medical History Medical History Sacral decubitus ulcer Osteomyelitis of foot Decubitus ulcer Amputation of one or more toes Aftercare following right hip joint replacement surgery Bipolar disorder PTSD (post-traumatic stress disorder) Sacral decubitus ulcer Peripheral neuropathy 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 Surgical History History of esophagogastroduodenoscopy (EGD) Hx of laminectomy History of total hip replacement Hx of right BKA Social History Social History Household Members: None Housing: House Are you a primary care transitions manager to a significant other at home: No Do you presently have visiting nurse or other home services: No Alcohol intake: former Comment: [employer] to luz marina avila Patient Tobacco Use Status: Current everyday Tobacco user Tobacco use type: Cigarette Cigarette Packs Per Day: 1 Cigarettes Per Day: 3 Years Smoked: 29 years Smoked in Last 30 Days: Yes Second Hand Smoke Exposure: No Use of substances other than those prescribed or required for medical reasons: No Substance Use Type: Crack/Cocaine Advance Directives: No Advance Directives Information Provided: Yes service: No Physical Exam ED Exam Exam: Appearance: Alert. Oriented X3. No acute distress. Eyes: Pupils equal, round and reactive to light. ENT: Pharynx normal. Neck: Normal inspection. Neck supple. No lymph nodes noted. No crepitus CVS: Normal heart rate and rhythm. Pulses normal. Normal S1 and S2 Respiratory: No respiratory distress. Breath sounds normal. No Wheezing. No rales Abdomen: Soft and nontender. No rigidity. No distention. Skin: Skin warm and dry. Normal skin color. Normal skin turgor. Patient's wounds in the buttocks/sacral area look chronic, clean, no erythema, no necrotic tissue Extremities: Patient has a right BKA, looks clean, no signs of cellulitis. Patient's left 2nd and 3rd toe, have old eschars Neuro: Oriented X 3. No motor deficit. No sensory deficit. Moving all extremities. No slurred speech. CN 2 through 12 grossly intact Psych: calm, cooperative, normal affect Vital Signs: Vital Signs - 24 hr 04/06/25 02:21 04/06/25 05:38 Temperature 98.1 F 97.8 F Pulse Rate 134 H 108 H Respiratory Rate 20 18 Blood Pressure 127/86 129/83 Pulse Oximetry 97 98 Oxygen Delivery Method Room Air Room Air BMI result Body Mass Index 35.0 Course Course Course Narrative: Patient was seen here [address] scans reviewed chronic osteomyelitis, no new changes. In the visit of to 5 days ago, the images and the patient were discussed with Dr. Hernandez from vascular surgery, Dr. Arriaga from Infectious Disease and hospitalist Dr. Page. -Dr. Hernandez: states patient can follow-up outpatient for evaluation of toe amputation -Dr. Arriaga: patient does not require antibiotics for his conditions as they are chronic. He should f/u with [facility] for his sacrum where he usually goes. -Dr. Page: he does not require inpatient level of care or admission to the hospital at this time Also, in his last visit, patient stated the following: he has Services and plans to follow-up with [facility] and [facility] in the coming days to help with his housing situation. Medical Decision Making Medical Decision Making [facility] Narrative: Three days ago, the patient is case was discussed with 3 physicians. All agree to have him follow-up on an outpatient basis. Today, patient presents with the same complaint. Patient came in complaining of pain, requesting some pain medication. My interpretation of labs: Patient's white blood cell count 5.7, hematology at baseline. Chemistry, no significant abnormalities. Patient's lactic acid was slightly bumped, 2.2 then 2.5, likely secondary to dehydration, patient states that he has not been eating or drinking much due to his housing situation. Serology negative for influenza COVID RSV Patient receiving IV fluids, some pain medication. Overall, patient's condition is chronic, no new changes. As mentioned above, patient has already been thoroughly worked up and discuss with 3 different specialist At this time, new images are not indicated Antibiotics are not indicated Patient will be given the phone number for the wound clinic here at [facility] just in case that he can not follow-up at the wound cleaning at [facility] where he usually goes. Differential Diagnosis Differential Diagnoses: The differential diagnosis associated with the presentation includes (Chronic wounds) Admission/Observation Consideration of admission/observation: Escalation of care including admission/observation considered (Given patient's recurrence of symptoms, observation was considered) Lab Data [facility] Lab Attestation statement: I reviewed the patient's lab results. 04/06/25 02:57 04/06/25 02:57 Labs: Lab Results 04/06/25 04/06/25 Range/Units 02:57 05:30 WBC 5.7 (4.8-10.8) X10*3/uL RBC 4.26 L (4.60-5.80) X10*6/uL Hgb 12.0 L (14.0-18.0) g/dl Hct 35.9 L (42.0-52.0) % MCV 84.3 (80.0-98.0) fL MCH 28.2 (27.0-33.0) pg MCHC 33.4 (31.0-36.0) g/dl RDW 14.4 (11.0-16.0) % Plt Count 192 (160-400) X10*3/uL MPV 11.3 (9.4-12.4) fL Immature Gran % (Auto) 0.5 H (0.0-0.4) % Neut % (Auto) 59.9 (45-73) % Lymph % (Auto) 29.2 (20-40) % Carver % (Auto) 8.3 (2-11) % Eos % (Auto) 1.9 (0-4) % Baso % (Auto) 0.2 (0-2) % Lymph # (Auto) 1.7 (1.2-4.9) X10*3/uL Carver # (Auto) 0.5 (0.1-1.2) X10*3/uL Eos # (Auto) 0.1 (0.0-0.4) X10*3/uL Baso # (Auto) 0.0 (0.0-0.2) X10*3/uL Abs Immat Gran (auto) 0.03 (0.00-0.03) X10*3/uL Absolute Neuts (auto) 3.4 (2.0-8.3) x10*3/uL Absolute Nucleated RBC 0.000 (0.0-0.012) X10*3/uL Nucleated RBC % (auto) 0.0 (0.0-0.2) /100WBC Sodium 142 (135-145) mmol/L Potassium 3.6 (3.3-5.1) mmol/L Chloride 108 (96-108) mmol/L Carbon Dioxide 22 (22-29) mmol/L Anion Gap 16 (12-20) BUN 7 L (9-16) mg/dL Creatinine 0.60 (0.5-1.4) mg/dL Estim Creat Clear Calc 217.8 Estimated GFR > 60 Random Glucose 189 H (60-115) mg/dL Lactic Acid 2.2 H* (0.5-2.0) mmol/L Lactic Acid F/U @ 2Hr 2.5 H* (0.5-2.0) mmol/L Calcium 9.7 D (8.4-10.2) mg/dL Total Bilirubin 0.2 (0.0-1.0) mg/dL AST 24 (5-37) U/L ALT 24 (0-40) U/L Alkaline Phosphatase 117 (39-117) U/L Total Protein 6.9 (6.5-8.0) g/dL Albumin 4.4 (3.5-5.0) g/dL Influenza Type A (PCR) NEGATIVE (Negative) Influenza Type B (PCR) NEGATIVE (Negative) RSV RNA Qual (PCR) NEGATIVE (Negative) SARS-CoV-2 RNA (RT-PCR) NEGATIVE (Negative) Radiology Impression Radiologist Impression: CT scans from April 01: 1. Findings which could indicate mild/early osteomyelitis at the sacrococcygeal junction. No significant change compared to 02/12/2025 2. Bilateral ischial wounds. 3. Cirrhosis. 4. Cholelithiasis. 5. Stable left adrenal adenomata. 1. . Suboptimal evaluation demonstrating no change in 3rd digit erosion as described above, compatible with osteomyelitis in the appropriate clinical setting. 2. Postsurgical sequelae. 3. Osteoarthritis. Critical Care Time Critical Care Time Critical Care Time: Yes Total Critical Care Time: 35 Attestation: I have personally provided critical care time. Time includes review of lab data, radiology results, discussion with consultants, and monitoring for potential decompensation. Intervention performed as documented. Discharge Plan Discharge Clinical Impression: Chronic wound Patient Disposition: Home, Self-Care Additional Instructions: Please follow-up with your primary care physician tomorrow. If you have any worsening or new symptoms, please return to the emergency room or call 911 Prescriptions: New oxycodone 5 mg tablet 5 mg PO BID PRN (Reason: pain) Qty: 8 0RF Rx Instructions: Partial Fill upon patient request. No Action quetiapine 300 mg tablet 300 mg PO BEDTIME glipizide 5 mg tablet 2.5 mg PO BIDAC pregabalin 225 mg capsule 225 mg PO BID lamotrigine 25 mg tablet 25 mg PO DAILY folic acid 1 mg tablet 1 mg PO DAILY lisinopril 5 mg tablet 5 mg PO DAILY sucralfate 1 gram tablet 1 g PO QID ondansetron HCl 4 mg tablet 4 mg PO BID PRN (Reason: nausea) sertraline 100 mg tablet 100 mg PO DAILY omeprazole 40 mg capsule,delayed release(DR/EC) 40 mg PO BID@0630,1630 oxycodone 5 mg tablet 5 mg PO Q8H PRN (Reason: severe pain (scale score 7-10)) Qty: 9 0RF Rx Instructions: Partial Fill upon patient request. Print Language: Lithuanian
[2025-04-06 07:31] VITALS: BP 123/77; PULSE 95; RESP 18; TEMP 36.5; O2SAT 98
[2025-04-06 07:33] LABS: Reflex Lactate? 2 Y
[2025-04-06] MEDS: oxyCODONE HCl Immed Release 5 MG TABLET PO (08:39)
[2025-04-06 09:38] LABS: ~Lactic Acid-LAB USE ONLY 1.8 mmol/L (0.5-2.0)
[2025-04-06 10:23] VITALS: BP 134/79; PULSE 92; RESP 15; TEMP 36.1; O2SAT 98
[2025-04-06 10:57] VITALS: BP 134/79; PULSE 92; RESP 15; TEMP 36.1; O2SAT 98
== END 2025-04-06 10:59 | disposition home or self-care (01) ==
PROVIDERS: Emergency Provider Emergency Medicine
DX: G89.29 Other chronic pain (principal); R11.0 Nausea; R00.0 Tachycardia, unspecified; Z79.899 Other long term (current) drug therapy; Z48.00 Encounter for change or removal of nonsurgical wound dressing; Z03.818 Encounter for observation for suspected exposure to other biological agents ruled out
CPT/HCPCS: 80053; 83605; 85025; 85652; 86140; 87040; 87637; 93005; 96361; 96374; 99284; 99285; J1885

== ENCOUNTER → 2025-04-06 02:34 | Outpatient (BNV) | payer MEDICARE, MEDICAID, SELFPAY | PROVIDERS: Emergency Provider Emergency Medicine; Visit Provider Internal Medicine Cardiovascular Disease | DX: R00.0 Tachycardia, unspecified (principal) | CPT/HCPCS: 93010 ==

== ENCOUNTER 2025-04-13 21:09 | Inpatient (IN) | payer MEDICARE, MEDICAID, SELFPAY ==
--- NOTE | ~2025-04-13 | MR_ITS ---
CLINICAL HISTORY: foot redness pain ?osteo atn: calcaneus MR left ankle with and without contrast Comparison: CR - XR FOOT LT MIN 3V - 04/13/25 22:30 EDT CR - XR TIBIA FIBULA LT 2V - 04/13/25 22:[address]/SR - CT FOOT LT W IV CON - 04/01/25 14:20 EDT CR - XR FOOT LT MIN 3V - 04/01/25 13:08 EDT CR - XR TIBIA FIBULA LT 2V - 04/01/25 13:01 EDT CR/OK/SR - XR FOOT 3 OR MORE VIEWS LEFT - 03/08/25 08:34 EDT CR/SR - XR FOOT 3 OR MORE VIEWS LEFT - 02/12/25 12:42 EDT CR - XR FOOT LT MIN 3V - 02/02/25 18:09 EDT Findings: No bone marrow edema or abnormal enhancement to definitively indicate osteomyelitis. There is a mild amount of edema and enhancement at the articulation of the large ossific fragment measuring 4.2 x 2.1 x 4.5 cm favored to be an enthesophyte at the dorsal aspect of the calcaneus with calcaneal tuberosity with large osteophytosis. Osteophytosis is otherwise mild. Preserved articulations. There is a trace amount of fluid at the tibiotalar, subtalar and talonavicular joints. Partial-thickness chondromalacia involving the talar dome. The subtalar cartilage is preserved. Achilles, extensor and flexor tendons are intact. The Achilles tendon is enlarged. There is enhancement at the insertion upon the large enthesophyte (series 15, image 12 and series 18, image 14). Deltoid ligament is intact. Remote tear of the anterior talofibular ligament. Syndesmotic and lateral compartment ligaments are otherwise intact. Plantar fascia is intact. In the musculature is atrophic and edematous. There is skin thickening and infiltration of the subcutaneous fat with enhancement. No rim enhancing fluid collection]. Impression: No definitive osteomyelitis . No abscess. Cellulitis. Large ossific fragment measuring 4.5 cm at the dorsal aspect of the calcaneus which is favored to be an enthesophyte, also present on the prior studies. There is a mild amount of edema and enhancement at the articulation of enthesophyte and the calcaneus which is favored to be inflammatory rather than infectious. The Achilles tendon is enlarged, likely secondary to tendinopathy. There is a mild amount of enhancement of the tendon at its insertion upon the ossific fragment, likely inflammatory. Follow up is recommended if symptoms persist or worsen. This document has been electronically signed by: Maria Luisa Yap MD on 04/14/2025 18:02:03
--- NOTE | ~2025-04-13 | US_ITS ---
CLINICAL HISTORY: infection foot Arterial duplex ultrasound left lower extremity Comparison: None provided Findings: Common femoral artery and profunda demonstrate normal velocities and normal triphasic flow. Superficial femoral artery demonstrates elevated velocities measuring up to 139 cm/sec and a diffusely monophasic waveform. Multifocal areas of plaquing in the SFA. Popliteal artery velocity is normal with biphasic waveforms. Posterior tibial artery velocity is normal and there are monophasic waveforms. The left peroneal artery is not visualized beyond the proximal segment. Proximal segment demonstrates monophasic waveforms. Anterior tibial artery demonstrates monophasic waveforms. IMPRESSION: Suspect diffuse atherosclerotic disease with areas of [id number] stenosis in the superficial femoral artery. This document has been electronically signed by: Mayur Dewitt MD on 04/15/2025 10:45:04
--- NOTE | ~2025-04-13 | MR_ITS ---
CLINICAL HISTORY: OM left foot --- Additional Notes or Special Instructions: noninsulin diabetic: attn; digits MR left foot with and without contrast Comparison: CR - XR FOOT LT MIN 3V - 04/13/25 22:[address]/SR - CT FOOT LT W IV CON - 04/01/25 14:20 EDT CR - XR FOOT LT MIN 3V - 04/01/25 13:08 EDT CR/WV/SR - XR FOOT 3 OR MORE VIEWS LEFT - 03/08/25 08:34 EDT CR/SR - XR FOOT 3 OR MORE VIEWS LEFT - 02/12/25 12:42 EDT CR - XR FOOT LT MIN 3V - 02/02/25 18:09 EDT Findings: There is mild amount edema and enhancement within the 1st metatarsal head adjacent to the joint space. There is a moderate amount of edema and enhancement within the 2nd metatarsal head which extends towards the proximal metaphysis. Status post amputation of the 1st and 2nd proximal phalanges. Chronic erosion of the 3rd proximal phalanx at of the proximal interphalangeal joint with decreased signal secondary to sclerosis; edema or enhancement to indicate acute infection. Amputation of the 5th metatarsal head/distal metaphysis with abnormal 5th metatarsophalangeal joint. The articulations are otherwise preserved. Remote, healed fracture of 4th metatarsal. Lisfranc complex is intact. Flexor and extensor tendons are intact. The musculature is atrophic and edematous. There is edema and enhancement of the subcutaneous fat, most prominent at the dorsal aspect. No rim enhancing fluid collection. Impression: Edema and enhancement within the 1st metatarsal head. Edema secondary to degenerative change is favored over osteomyelitis. Edema and enhancement within the 2nd metatarsal is favored to be osteomyelitis. Cellulitis. No abscess. This document has been electronically signed by: Maria Luisa Yap MD on 04/14/2025 18:06:31
--- NOTE | ~2025-04-13 | XR_ITS ---
CLINICAL HISTORY: infection osteo 3 view left foot Comparison: X-rays of the left foot from 04/01/2025 Findings: Deformity of the dorsal calcaneus appears old/chronic. Although nonspecific this may be related to previous fracture and/or injury. Avulsion with calcific tendinitis also considered. Osseous neoplasm and chronic infection not excluded by radiographs. Persistent Widening at 3rd proximal interphalangeal joint is nonspecific and concerning for septic arthropathy, given new lucency of the proximal phalanx. Deformity of the 5th metatarsophalangeal joint are nonspecific and likely postprocedural. No aggressive erosions of the remaining stump proximal phalanx of the 1st and 2nd digits, post amputations. Soft tissue swelling noted. Low bone mineralization noted. IMPRESSION: 1. Widening at 3rd proximal interphalangeal joint is nonspecific. Differential considerations include septic arthropathy. 2. Additional deformities appear old/chronic is noted. This document has been electronically signed by: Mariusz Trejo MD on 04/13/2025 23:31:39
--- NOTE | ~2025-04-13 | XR_ITS ---
CLINICAL HISTORY: infection osteo 2 view left tibia-fibula Comparison: X-rays of the left tibia and left fibula from 04/01/2025 Findings Low bone mineralization for age suggested by radiographs. No aggressive erosion acute or marked osteomyelitis by radiographs. Mild osteoarthritis of the imaged knee and mild-moderate osteoarthritis of the ankle and greater than expected for age. No acute displaced fracture of the imaged tibia or imaged fibula. Deformity of the calcaneus redemonstrated and nonspecific. Differential considerations include remodeling post old fracture. No retained metallic foreign body. IMPRESSION: 1. Low bone mineralization suggested without defined aggressive erosion of the of the osteomyelitis by radiographs. 2. Deformity of the dorsal calcaneus is nonspecific and may be related to old fracture injury. This document has been electronically signed by: Mariusz Trejo MD on 04/13/2025 23:26:04
[2025-04-13 21:17] VITALS: BP 161/100; BP 180/120; PULSE 111; PULSE 122; RESP 18; TEMP 36.7; O2SAT 97; BMI 35.0
[2025-04-13 22:02] LABS: MANUAL DIFF FLAG NO
[2025-04-13 22:04] LABS: Hematocrit 39.3 % (42.0-52.0); Hemoglobin 12.8 g/dl (14.0-18.0); Imm Gran Abs Auto 0.11 X10*3/uL (0.00-0.03); Imm Gran Pct Auto 0.6 % (0.0-0.4); Lymphocytes Absolute Auto 2.0 X10*3/uL (1.2-4.9); Mean Corpuscular HGB Conc 32.6 g/dl (31.0-36.0); Mean Corpuscular Hemoglobin 27.7 pg (27.0-33.0); Mean Corpuscular Volume 85.1 fL (80.0-98.0); NRBC Abs Auto 0.000 X10*3/uL (0.0-0.012); NRBC Pct Auto 0.0 /100WBC (0.0-0.2); Platelet Count 303 X10*3/uL (160-400); Red Blood Count 4.62 X10*6/uL (4.60-5.80); White Blood Count 17.4 X10*3/uL (4.8-10.8)
[2025-04-13 22:10] VITALS: BP 124/84; PULSE 112; RESP 18; TEMP 38.7; O2SAT 96
[2025-04-13 22:18] VITALS: BP 111/110
[2025-04-13 22:23] VITALS: BP 112/108
[2025-04-13 22:26] LABS: Alanine Aminotransferase 33 U/L (0-40); Albumin Level 4.6 g/dL (3.5-5.0); Alkaline Phosphatase 118 U/L (39-117); Anion Gap 19 (12-20); Aspartate Amino Transferase 33 U/L (5-37); Blood Urea Nitrogen 14 mg/dL (9-16); Calcium 9.6 mg/dL (8.4-10.2); Carbon Dioxide 24 mmol/L (22-29); Chloride 103 mmol/L (96-108); Creatinine Clr Calc Pharmacy 181.5; Estimated Glomerular Filt Rate > 60; Potassium 3.8 mmol/L (3.3-5.1); Sodium 142 mmol/L (135-145); Total Protein 7.7 g/dL (6.5-8.0)
[2025-04-13 22:30] VITALS: BP 108/107
[2025-04-13 22:31] VITALS: RESP 12
[2025-04-14] VITALS (13 sets, daily range): BP systolic 98–133; BP diastolic 55–80; PULSE 75–94; RESP 14–18; TEMP 36–37.7; O2SAT 94–97; BMI 36.6
[2025-04-14] LABS: Reflex Lactate? Lactic Acid Added
[2025-04-14 00:37] LABS: ~Lactic Acid-LAB USE ONLY 2.2 mmol/L (0.5-2.0)
[2025-04-14 01:01] LABS: Appearance Urine Clear; Glucose Urine UA >=1000 mg/dL (Negative); PH 6.0 (5.0-9.0); Specific Gravity - Urine >= 1.030 (1.005-1.025); UMIC TRIGGER UACC YES
--- NOTE | 2025-04-14 01:27 | PC.NURSE ---
pts fluids were not infusing at a faster rate. Pressure bags were needed to help infuse fluids faster.
[2025-04-14] MEDS: Erythromycin Base 0.5% Oph Oin 1 GM TUBE 1 CM EYE-LEFT (01:32)
--- NOTE | 2025-04-14 01:36 | PC.NURSE ---
Upon arrival, pts Left foot/leg was warm to touch, noticeable swelling +2 edema. No open cuts/wouds/ no discharge. Pt c/o of 10/10 pain in the foot. Pt was febrile with a rectal temp of 101.7. Labs were quickly collected and sent to the lab. pt was a hard stick so US guided IV access was needed- obtained by provider. Pt also has swelling and discharge in the L eye. RN waited for med orders before medicating pt per oct.
[2025-04-14 01:57] LABS: Resp Syncy Virus RNA Qual PCR NEGATIVE (Negative); SARS COV2 PCR INHOUSE NEGATIVE (Negative)
--- NOTE | 2025-04-14 02:03 | ED.GENADULT ---
HPI - General Adult General Chief complaint: Nausea/Vomiting/Diarrhea Stated complaint: Vonition blood 2 hours ago Time Seen by Provider: 04/13/25 22:27 Source: patient Limitations: no limitations History of Present Illness ED Provider: Libia Coon PA-C HPI narrative: 40-year-old male with a history of [place] syndrome wheelchair-bound, peripheral vascular disease status post right BKA, peripheral neuropathy, sacral decubitus ulcer, type 2 [id number]-tcidgrhav diabetes mellitus, hypertension, alcohol use disorder, prior AKA and ETOH withdrawal, mood disorder with history of SI, right hip osteoarthritis status post replacement presents with left foot pain x3 days. Associated swelling and redness. Denies known fever. Patient also developed left eye irritation, waking with crusty discharge in the mornings over the past 2 days. Denies recent cough or cold symptoms. Related Data Home Medications ?Medication ?Instructions ?Recorded ?Confirmed glipizide 5 mg tablet 2.5 mg PO BIDAC 02/02/25 04/01/25 pregabalin 225 mg capsule 225 mg PO BID 02/02/25 04/01/25 quetiapine 300 mg tablet 300 mg PO BEDTIME 02/02/25 04/01/25 folic acid 1 mg tablet 1 mg PO DAILY 03/08/25 04/01/25 lamotrigine 25 mg tablet 25 mg PO DAILY 03/08/25 04/01/25 lisinopril 5 mg tablet 5 mg PO DAILY 03/08/25 04/01/25 omeprazole 40 mg capsule,delayed 40 mg PO BID@0630,1630 04/01/25 04/01/25 release ondansetron HCl 4 mg tablet 4 mg PO BID PRN nausea 04/01/25 04/01/25 sertraline 100 mg tablet 100 mg PO DAILY depressive disorder 04/01/25 04/01/25 sucralfate 1 gram tablet 1 g PO QID 04/01/25 04/01/25 Previous Rx's ?Medication ?Instructions ?Recorded oxycodone 5 mg tablet 5 mg PO Q8H PRN severe pain (scale 04/02/25 score 7-10) #9 tabs oxycodone 5 mg tablet 5 mg PO BID PRN pain #8 tabs 04/06/25 Allergies Allergy/AdvReac Type Severity Reaction Status Date / Time baclofen Allergy Hives Verified 04/13/25 21:21 escitalopram (From Lexapro) Allergy Vomiting Verified 04/13/25 21:21 lithium Allergy Unresponsiv Verified 04/13/25 21:21 e metformin Allergy Unknown Verified 04/13/25 21:21 morphine Allergy Hives Verified 04/13/25 21:21 sulfamethoxazole (From Allergy Hives Verified 04/13/25 21:21 Bactrim) tramadol Allergy Hives Verified 04/13/25 21:21 trimethoprim (From Bactrim) Allergy Hives Verified 04/13/25 21:21 Review of Systems Review of Systems: Yes all other systems are reviewed and are negative Constitutional: Constitutional: Denies fatigue and Denies fever(s) Cardiovascular: Cardiovascular: Denies chest pain and Denies dyspnea Respiratory: Respiratory: Denies cough and Denies dyspnea Gastrointestinal: Gastrointestinal: Denies abdominal pain, Denies diarrhea, Reports nausea and Reports vomiting Genitourinary: Genitourinary: Denies dysuria Endocrine: Endocrine: Denies fatigue PMFSH Past Medical History Attestation statement: The following information was validated with the patient. Medical History Sacral decubitus ulcer Osteomyelitis of foot Decubitus ulcer Amputation of one or more toes Aftercare following right hip joint replacement surgery Bipolar disorder PTSD (post-traumatic stress disorder) Sacral decubitus ulcer Peripheral neuropathy Non-insulin dependent type 2 diabetes mellitus Guillain-[place] Surgical History History of esophagogastroduodenoscopy (EGD) Hx of laminectomy History of total hip replacement Hx of right BKA Social History Social History Household Members: None Housing: House Are you a primary healthcare project manager to a significant other at home: No Do you presently have visiting nurse or other home services: No Alcohol intake: former Comment: stand pivot to luz marina avila Patient Tobacco Use Status: Current everyday Tobacco user Tobacco use type: Cigarette Cigarette Packs Per Day: 1 Cigarettes Per Day: 3 Years Smoked: 29 years Second Hand Smoke Exposure: No Substance Use Type: Crack/Cocaine Advance Directives: No Advance Directives Information Provided: No Do you have a plan to hurt others: No Plan service: No Physical Exam ED Vital Signs: Vital Signs - 24 hr 04/13/25 21:17 04/13/25 22:10 04/13/25 22:18 Temperature 98.1 F 101.7 F H Pulse Rate 111 H 112 H Respiratory Rate 18 18 Blood Pressure 161/100 H 124/84 111/110 H Pulse Oximetry 97 96 Oxygen Delivery Method Room Air Room Air 04/13/25 22:23 04/13/25 22:30 04/13/25 22:31 Temperature Pulse Rate Respiratory Rate 12 Blood Pressure 112/108 H 108/107 H Pulse Oximetry Oxygen Delivery Method 04/14/25 00:03 04/14/25 01:33 04/14/25 02:46 Temperature 99.9 F 99.5 F Pulse Rate 94 91 Respiratory Rate 14 18 18 Blood Pressure 110/73 98/62 Pulse Oximetry 96 95 Oxygen Delivery Method Room Air Room Air 04/14/25 03:04 Temperature 99.5 F Pulse Rate 85 Respiratory Rate 16 Blood Pressure 131/55 L Pulse Oximetry 94 Oxygen Delivery Method Room Air BMI result Body Mass Index 35.0 Const Other: Awake, ill-appearing, appears older than stated age Orientation/consciousness: patient oriented x3 Eyes Other: Left bulbar conjunctiva injected, purulent discharge noted, crusted over the lashes, the upper lid is erythematous and swollen Resp Effort & Inspection: normal respiratory effort Cardio Other: Normal peripheral perfusion Skin Other: Warm dry no rash Neuro General: patient oriented x3, gait normal, no focal motor deficits and CN's II-XI intact bilaterally Extrem Other: Left lower extremity is erythematous distally from mid augustin to the foot, tender to palpation, Psych Other: Cooperative Course Reevaluation(s) Reevaluation #1: At 10:16 p.m. on April 13 a sepsis focused exam was performed. In addition to screening lab will cultures and lactic we will be obtained, ideal body weight IV fluids were calculated, he should receive a total of 2397 mL. We will give Tylenol for fever, starting empiric ceftriaxone, we will likely escalate to vanco and Zosyn. Time: 22:16 Medications Administered Discontinued Medications Generic Name Dose Route Start Last Admin Trade Name Freq PRN Reason Stop Dose Admin Ceftriaxone Sodium 2 gm 04/13/25 22:16 04/13/25 22:22 Ceftriaxone Sodium 2 Gm Vial IVPUSH 04/13/25 22:17 2 gm ONCE ONE Administration Erythromycin 1 cm 04/14/25 00:25 04/14/25 01:32 Erythromycin Base 0.5% Oph Oin 1 Gm Tube EYE-LEFT 04/14/25 00:26 1 cm ONCE ONE Administration Hydromorphone HCl 1 mg 04/13/25 22:22 04/13/25 22:31 Hydromorphone Hcl 1 Mg/Ml Syringe IVPUSH 04/13/25 22:23 1 mg ONCE ONE Administration Protocol Hydromorphone HCl 1 mg 04/13/25 23:51 04/14/25 00:03 Hydromorphone Hcl 1 Mg/Ml Syringe IVPUSH 04/13/25 23:52 1 mg ONCE ONE Administration Protocol Acetaminophen 1,000 mg in 100 mls @ 400 mls/hr 04/13/25 22:16 04/13/25 22:37 Ofirmev IV 04/13/25 22:30 Infused ONCE ONE Infusion Sodium Chloride 1,000 mls @ 999 mls/hr 04/13/25 22:30 04/14/25 02:44 Ns IV 04/13/25 23:30 Infused .Q1H1M CHERISE Infusion Sodium Chloride 1,000 mls @ 999 mls/hr 04/13/25 22:30 04/14/25 02:31 Ns IV 04/13/25 23:30 Infused .Q1H1M CHERISE Infusion Sodium Chloride 500 mls @ 500 mls/hr 04/13/25 22:26 04/14/25 01:30 Ns IV 04/13/25 23:25 Infused .Q1H ONE Infusion Vancomycin HCl 1,500 mg/ 500 mls @ 333.333 mls/hr 04/14/25 01:36 04/14/25 02:52 Sodium Chloride IV 04/14/25 03:05 333.33 mls/hr ONCE ONE Administration Piperacillin Sod/Tazobactam 50 mls @ 100 mls/hr 04/14/25 01:36 04/14/25 02:18 Sod 3.375 gm/ Sodium Chloride IV 04/14/25 02:05 Infused ONCE ONE Infusion Procedures Procedure Narrative Procedure Narrative: Ultrasound-guided IV 20 gauge 1.16 in IV placed in left upper extremity. Adequate blood return, flushes well secured with Tegaderm Medical Decision Making Medical Decision Making MDM Narrative: 40-year-old male with a history of [place]illian [place] syndrome wheelchair-bound, peripheral vascular disease status post right BKA, peripheral neuropathy, sacral decubitus ulcer, type 2 [id number]-wedkyyscb diabetes mellitus, hypertension, alcohol use disorder, prior AKA and ETOH withdrawal, mood disorder with history of SI, right hip osteoarthritis status post replacement presents with left foot pain x3 days. Associated swelling and redness. Denies known fever. Patient also developed left eye irritation, waking with crusty discharge in the mornings over the past 2 days. Denies recent cough or cold symptoms. Problem: Peripheral vascular disease, neuropathy, diabetes, alcohol use disorder History: Per patient I have considered the following differential diagnoses: Sepsis, osteomyelitis, cellulitis, purulent cellulitis, gangrene, conjunctivitis, viral syndrome, UTI Plan: Patient meets sepsis criteria he is febrile, the likely sources his left lower extremity. We will start with screening x-rays of the tib-fib and foot. In addition to screening labs we will be collecting blood cultures, lactic. Starting weight based IV fluid therapy ideal body weight, and ceftriaxone, giving Tylenol. Given Dilaudid for his pain. We will still screen a urine and a viral panel. In regard to the conjunctivitis, he requires a fluoroquinolone, he has risk factors for Pseudomonas given he is diabetic, however I am unable to order that here, the pharmacy is closed. We will at least give him erythromycin ointment. I have independently reviewed the following tests: Labs: Leukocytosis of 17.4 with left shift, not anemic, no electrolyte abnormality, lactic 3.0, 2nd lactic 2.2, 3rd lactic, urine not infected, viral panel negative X-ray left tib-fib: Findings Low bone mineralization for age suggested by radiographs. No aggressive erosion acute or marked osteomyelitis by radiographs. Mild osteoarthritis of the imaged knee and mild-moderate osteoarthritis of the ankle and greater than expected for age. No acute displaced fracture of the imaged tibia or imaged fibula. Deformity of the calcaneus redemonstrated and nonspecific. Differential considerations include remodeling post old fracture. No retained metallic foreign body. IMPRESSION: 1. Low bone mineralization suggested without defined aggressive erosion of the of the osteomyelitis by radiographs. 2. Deformity of the dorsal calcaneus is nonspecific and may be related to old fracture injury. X-ray left foot:MPRESSION: 1. Widening at 3rd proximal interphalangeal joint is nonspecific. Differential considerations include septic arthropathy. 2. Additional deformities appear old/chronic is noted. Differential Diagnosis Differential Diagnoses: The differential diagnosis associated with the presentation includes See MDM Admission/Observation Consideration of admission/observation: Escalation of care including admission/observation considered Consult Healthcare Provider Management of the patient was discussed with: Hospitalist Lab Data [facility] Lab Attestation statement: I reviewed the patient's lab results. 04/13/25 21:55 04/13/25 21:55 Labs: Lab Results 04/13/25 04/14/25 04/14/25 Range/Units 21:55 00:16 00:52 WBC 17.4 H (4.8-10.8) X10*3/uL RBC 4.62 (4.60-5.80) X10*6/uL Hgb 12.8 L (14.0-18.0) g/dl Hct 39.3 L (42.0-52.0) % MCV 85.1 (80.0-98.0) fL MCH 27.7 (27.0-33.0) pg MCHC 32.6 (31.0-36.0) g/dl RDW 14.7 (11.0-16.0) % Plt Count 303 D (160-400) X10*3/uL MPV 10.9 (9.4-12.4) fL Immature Gran % (Auto) 0.6 H (0.0-0.4) % Neut % (Auto) 80.2 H (45-73) % Lymph % (Auto) 11.6 L (20-40) % [place] % (Auto) 6.9 (2-11) % Eos % (Auto) 0.3 (0-4) % Baso % (Auto) 0.4 (0-2) % Lymph # (Auto) 2.0 (1.2-4.9) X10*3/uL [place] # (Auto) 1.2 (0.1-1.2) X10*3/uL Eos # (Auto) 0.1 (0.0-0.4) X10*3/uL Baso # (Auto) 0.1 (0.0-0.2) X10*3/uL Abs Immat Gran (auto) 0.11 H (0.00-0.03) X10*3/uL Absolute Neuts (auto) 13.9 H (2.0-8.3) x10*3/uL Absolute Nucleated RBC 0.000 (0.0-0.012) X10*3/uL Nucleated RBC % (auto) 0.0 (0.0-0.2) /100WBC Sodium 142 (135-145) mmol/L Potassium 3.8 (3.3-5.1) mmol/L Chloride 103 (96-108) mmol/L Carbon Dioxide 24 (22-29) mmol/L Anion Gap 19 (12-20) BUN 14 (9-16) mg/dL Creatinine 0.72 (0.5-1.4) mg/dL Estim Creat Clear Calc 181.5 Estimated GFR > 60 Random Glucose 133 H (60-115) mg/dL Lactic Acid 3.0 H* (0.5-2.0) mmol/L Lactic Acid F/U @ 2Hr 2.2 H* (0.5-2.0) mmol/L Lactic Acid F/U @ 4Hr (0.5-2.0) mmol/L Calcium 9.6 (8.4-10.2) mg/dL Total Bilirubin 0.5 (0.0-1.0) mg/dL AST 33 (5-37) U/L ALT 33 (0-40) U/L Alkaline Phosphatase 118 H (39-117) U/L Total Protein 7.7 (6.5-8.0) g/dL Albumin 4.6 (3.5-5.0) g/dL Urine Color Yellow Urine Appearance Clear Urine pH 6.0 (5.0-9.0) Ur Specific [place] >= 1.030 H (1.005-1.025) Urine Protein Trace (Neg-Trace) mg/dL Urine Glucose (UA) >=1000 H (Negative) mg/dL Urine Ketones Trace (Negative) mg/dL Urine Blood Negative (Negative) Urine Nitrite Negative (Negative) Ur Leukocyte Esterase Negative (Negative) Urine RBC 0-2 (0-2) /HPF Urine WBC 0-5 (0-5) /HPF Ur Squamous Epith Cells 0-2 (0-2) /HPF Urine Bacteria None Seen (None Seen) Hyaline Casts 0-2 (0-2) /LPF Influenza Type A (PCR) (Negative) Influenza Type B (PCR) (Negative) RSV RNA Qual (PCR) (Negative) SARS-CoV-2 RNA (RT-PCR) (Negative) 04/14/25 04/14/25 Range/Units 01:14 02:51 WBC (4.8-10.8) X10*3/uL RBC (4.60-5.80) X10*6/uL Hgb (14.0-18.0) g/dl Hct (42.0-52.0) % MCV (80.0-98.0) fL MCH (27.0-33.0) pg MCHC (31.0-36.0) g/dl RDW (11.0-16.0) % Plt Count (160-400) X10*3/uL MPV (9.4-12.4) fL Immature Gran % (Auto) (0.0-0.4) % Neut % (Auto) (45-73) % Lymph % (Auto) (20-40) % [place] % (Auto) (2-11) % Eos % (Auto) (0-4) % Baso % (Auto) (0-2) % Lymph # (Auto) (1.2-4.9) X10*3/uL [place] # (Auto) (0.1-1.2) X10*3/uL Eos # (Auto) (0.0-0.4) X10*3/uL Baso # (Auto) (0.0-0.2) X10*3/uL Abs Immat Gran (auto) (0.00-0.03) X10*3/uL Absolute Neuts (auto) (2.0-8.3) x10*3/uL Absolute Nucleated RBC (0.0-0.012) X10*3/uL Nucleated RBC % (auto) (0.0-0.2) /100WBC Sodium (135-145) mmol/L Potassium (3.3-5.1) mmol/L Chloride (96-108) mmol/L Carbon Dioxide (22-29) mmol/L Anion Gap (12-20) BUN (9-16) mg/dL Creatinine (0.5-1.4) mg/dL Estim Creat Clear Calc Estimated GFR Random Glucose (60-115) mg/dL Lactic Acid (0.5-2.0) mmol/L Lactic Acid F/U @ 2Hr (0.5-2.0) mmol/L Lactic Acid F/U @ 4Hr 1.7 (0.5-2.0) mmol/L Calcium (8.4-10.2) mg/dL Total Bilirubin (0.0-1.0) mg/dL AST (5-37) U/L ALT (0-40) U/L Alkaline Phosphatase (39-117) U/L Total Protein (6.5-8.0) g/dL Albumin (3.5-5.0) g/dL Urine Color Urine Appearance Urine pH (5.0-9.0) Ur Specific [place] (1.005-1.025) Urine Protein (Neg-Trace) mg/dL Urine Glucose (UA) (Negative) mg/dL Urine Ketones (Negative) mg/dL Urine Blood (Negative) Urine Nitrite (Negative) Ur Leukocyte Esterase (Negative) Urine RBC (0-2) /HPF Urine WBC (0-5) /HPF Ur Squamous Epith Cells (0-2) /HPF Urine Bacteria (None Seen) Hyaline Casts (0-2) /LPF Influenza Type A (PCR) NEGATIVE (Negative) Influenza Type B (PCR) NEGATIVE (Negative) RSV RNA Qual (PCR) NEGATIVE (Negative) SARS-CoV-2 RNA (RT-PCR) NEGATIVE (Negative) Radiology Impression Discussion of test interpretation with radiology: I have reviewed the radiologist's reading. Critical Care Time Critical Care Time Critical Care Time: Yes Total Critical Care Time: 45 Attestation: I Libia Coon PA-C have personally performed 45 minutes of critical care time not including lines and procedures; sepsis, requiring IV antibiotics, IV fluid therapy, IV analgesia Discharge Plan Discharge Clinical Impression: Septic arthritis of left foot, Sepsis, Acute conjunctivitis, left eye Patient Disposition: Admitted As Inpatient Print Language: [place]
--- NOTE | 2025-04-14 02:10 | PC.NURSE ---
Continued difficulty with pts iv fluids infusing even with pressure bags. engineering lecturer assisted RN. RN to ask provider to put another US guided IV line in the the R arm to infuse all fluids/abx at a faster speed.
[2025-04-14 02:22] LABS: Reflex Lactate? 2 Y
--- NOTE | 2025-04-14 02:29 | PC.NURSE ---
First liter of fluids just finished.
--- NOTE | 2025-04-14 02:37 | PC.NURSE ---
RN checked on pts fluids- pt is still folding arm not keeping arm straight for fluids to infuse. RN educated pt to keep arm straight so fluids can finish infusing.
--- NOTE | 2025-04-14 02:42 | PC.NURSE ---
RN spoke to provider who was OK to d/c the last bit of fluids remaining in the second 1000mL bag. 300 mL currently remaining. Pt has already received 1500mLs.
[2025-04-14 03:15] LABS: ~Lactic Acid-LAB USE ONLY 1.7 mmol/L (0.5-2.0)
--- NOTE | 2025-04-14 03:16 | P.HPHOSP_ITS ---
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 Pt states his pain is remarkable and the redness, swelling and pain started about 2 days prior. Pt denies any injury, skin exposure but does not wear shoes or slippers on feet. Pt also has chronic sacral wound and has not been able to establish contact with wound care clinic. Pt states he has a [employer] he has known for 14 years but no nursing care in the home. Pt's father passed in December 2024 and since then, pt has not been able to meet his care needs noting his multiple comorbidities. Pt did state that he stopped drinking alcohol January 2025 but still uses cocaine once every 3 months. Toxicology screen pending. Pt did leave AMA with previous admission for GIB and did not complete the colonoscopy. Pt denies current hemataemisis or coughing up blood. H/H stable. Xrays done in ED note possible OM in LLL/foot. Pt started on Vancomycin and Zosyn. Pt started on sepsis protocol noting fever 101.7, tachycardia and elevated Lactic acid. LActic acid has normalized to 1.7. Pt started on ophthalmic ointment for conjunctiviits. Review of Systems 2 Review of Systems: Pt denies any chest pain, SOB at rest, abd pain, vomiting but is still having occasional nausea. Pt reports severe pain in LLL. Pt denies MARCELO, visual changes, diarrhea or constipation. Yes all other systems are reviewed and are negative [facility] Medical History Sacral decubitus ulcer Osteomyelitis of foot Decubitus ulcer Amputation of one or more toes Aftercare following right hip joint replacement surgery Bipolar disorder PTSD (post-traumatic stress disorder) Sacral decubitus ulcer Peripheral neuropathy Non-insulin dependent type 2 diabetes mellitus Guillain-[place] Cognitive capacity: A/O X3 Functional capacity: wheelchair bound Surgical History History of esophagogastroduodenoscopy (EGD) Hx of laminectomy History of total hip replacement Hx of right BKA Social History Household Members: None Housing: House Are you a primary care attendant to a significant other at home: No Do you presently have visiting nurse or other home services: No Alcohol intake: former Comment: stand pivot to luz marina avila Patient Tobacco Use Status: Current everyday Tobacco user Tobacco use type: Cigarette Cigarette Packs Per Day: 1 Cigarettes Per Day: 3 Years Smoked: 29 years Smoked in Last 30 Days: Yes Second Hand Smoke Exposure: No Use of substances other than those prescribed or required for medical reasons: No Substance Use Type: Crack/Cocaine Advance Directives: No Advance Directives Information Provided: No Do you have a plan to hurt others: No Plan service: No Ebola Risk: Travel/Contact With Anyone From Affected Area/s: No Has Patient Experienced Ebola Symptoms: No Meds Allergies Allergy/AdvReac Type Severity Reaction Status Date / Time baclofen Allergy Hives Verified 04/13/25 21:21 escitalopram (From Lexapro) Allergy Vomiting Verified 04/13/25 21:21 lithium Allergy Unresponsiv Verified 04/13/25 21:21 e metformin Allergy Unknown Verified 04/13/25 21:21 morphine Allergy Hives Verified 04/13/25 21:21 sulfamethoxazole (From Allergy Hives Verified 04/13/25 21:21 Bactrim) tramadol Allergy Hives Verified 04/13/25 21:21 trimethoprim (From Bactrim) Allergy Hives Verified 04/13/25 21:21 Active Medications: Current Medications Acetaminophen (Acetaminophen 325 Mg Tablet) 650 mg PO Q6H PRN PRN Reason: Pain, Mild 1-3,fever,headache Albuterol/Ipratropium (Albuterol/Iprat 2.5/0.5mg 3 Ml Ampul.Neb) 3 ml INHALE Q4H PRN PRN Reason: Shortness of Breath/Wheezing Calcium Carbonate (Calcium Carbonate 750 Mg Tab.Chew) 750 mg PO Q4H PRN PRN Reason: Heartburn Enoxaparin Sodium (Enoxaparin Sodium 40 Mg/0.4 Ml Syringe) 40 mg SUBCUT Q24H [facility] Lactated Ringer's (Lr) 1,000 mls @ 125 mls/hr IVCONT .Q8H [facility] Magnesium Hydroxide (Milk Of Magnesia 30 Ml Oral.Susp) 30 ml PO DAILY PRN PRN Reason: Constipation Melatonin (Melatonin 3 Mg Tablet) 6 mg PO BEDTIME PRN PRN Reason: Insomnia Ondansetron HCl (Ondansetron Hcl 4 Mg/2 Ml Vial) 4 mg IVPUSH Q8H PRN PRN Reason: Nausea and Vomiting Polyethylene Glycol (Polyethylene Glycol 3350 17 Gm Powd.Pack) 17 gm PO DAILY PRN PRN Reason: Constipation Senna (Sennosides 8.6 Mg Tablet) 17.2 mg PO BEDTIME [facility] Sodium Chloride (0.9 % Sodium Chloride Flush 3 Ml Syringe) 3 ml IVFLUSH QSHIFT [facility] Home Medications ?Medication ?Instructions ?Recorded ?Confirmed ?Last Taken ?Type glipizide 5 mg tablet 2.5 mg PO BIDAC 02/02/2506/1603/31/25 History pregabalin 225 mg capsule 225 mg PO BID 02/02/2504/0103/31/25 History quetiapine 300 mg tablet 300 mg PO BEDTIME 02/02/25 0 04/01/25 03/31/25 History folic acid 1 mg tablet 1 mg PO DAILY 03/08/2504/0103/31/25 History lamotrigine 25 mg tablet 25 mg PO DAILY 03/08/2503/2303/31/25 History lisinopril 5 mg tablet 5 mg PO DAILY 03/08/2504/0103/31/25 History omeprazole 40 mg capsule,delayed 40 mg PO BID@0630,163 0 04/01/25 04/01/25 03/31/25 History release ondansetron HCl 4 mg tablet 4 mg PO BID PRN nausea 06/1604/01/25 Unknown History sertraline 100 mg tablet 100 mg PO DAILY depressive d isorder 04/01/25 04/01/25 03/31/25 History sucralfate 1 gram tablet 1 g PO QID 04/01/25 04/01/25 03/31/25 History Physical Exam 2 Vital Signs and Narrative: Vital Signs: Last Vital Signs Temp 99.5 F 04/14/25 03:04 Pulse 85 04/14/25 03:04 Resp 16 04/14/25 03:04 BP 131/55 L 04/14/25 03:04 Pulse Ox 94 04/14/25 03:04 O2 Del Method Room Air 04/14/25 03:04 BMI result Body Mass Index 35.0 Alert and orientated X3, able to give good history. Neuro: CN II-X11 intact, no deficits, visual acuity intact EYES: PERRLA, EOM intact, sclera nonicteric, mild erythemia and crusting noted ENT: hearing intact, no issues with swallowing, uvula midline, lips moist, nares patent no epistaxis Cardiac: S1 S2 RRR, no murmur, no JVD, edema B BKA amp R Left lower foot with edema Pulmonary: lungs diminished Abdominal: BS active in all 4 quadrants, no guarding, tenderness, rebounding MSK: strength 4/5 upper and lower extremities BKA R leg : no CVA tenderness no bladder distension Extremities: moderate edema in L lower extremities, PT and DP pulses palpable +2 Left foot and ankle are hot to the touch, red and swollen Psych: mood stable, judgement and insight good Skin: cellulitic changes to Left foot, R stump bottom is also warm, Sacrum is clean, dry without redness or warmth Results Labs 04/13/25 21:55 04/13/25 21:55 Labs: Laboratory Results - last 24 hr 04/13/25 04/14/25 04/14/25 21:55 00:16 00:52 MCV 85.1 MCH 27.7 MCHC 32.6 RDW 14.7 Plt Count 303 D MPV 10.9 Immature Gran % (Auto) 0.6 H Neut % (Auto) 80.2 H Lymph % (Auto) 11.6 L Bollinger % (Auto) 6.9 Eos % (Auto) 0.3 Baso % (Auto) 0.4 Lymph # (Auto) 2.0 Bollinger # (Auto) 1.2 Eos # (Auto) 0.1 Baso # (Auto) 0.1 Abs Immat Gran (auto) 0.11 H Absolute Neuts (auto) 13.9 H Absolute Nucleated RBC 0.000 Nucleated RBC % (auto) 0.0 Anion Gap 19 Estim Creat Clear Calc 181.5 Estimated GFR > 60 Random Glucose 133 H Lactic Acid 3.0 H* Lactic Acid F/U @ 2Hr 2.2 H* Lactic Acid F/U @ 4Hr Calcium 9.6 Total Bilirubin 0.5 AST 33 ALT 33 Alkaline Phosphatase 118 H Total Protein 7.7 Albumin 4.6 Urine Color Yellow Urine Appearance Clear Urine pH 6.0 Ur Specific Batchelor >= 1.030 H Urine Protein Trace Urine Glucose (UA) >=1000 H Urine Ketones Trace Urine Blood Negative Urine Nitrite Negative Ur Leukocyte Esterase Negative Urine RBC 0-2 Urine WBC 0-5 Ur Squamous Epith Cells 0-2 Urine Bacteria None Seen Hyaline Casts 0-2 Influenza Type A (PCR) Influenza Type B (PCR) RSV RNA Qual (PCR) SARS-CoV-2 RNA (RT-PCR) 04/14/25 04/14/25 01:14 02:51 MCV MCH MCHC RDW Plt Count MPV Immature Gran % (Auto) Neut % (Auto) Lymph % (Auto) Bollinger % (Auto) Eos % (Auto) Baso % (Auto) Lymph # (Auto) Bollinger # (Auto) Eos # (Auto) Baso # (Auto) Abs Immat Gran (auto) Absolute Neuts (auto) Absolute Nucleated RBC Nucleated RBC % (auto) Anion Gap Estim Creat Clear Calc Estimated GFR Random Glucose Lactic Acid Lactic Acid F/U @ 2Hr Lactic Acid F/U @ 4Hr 1.7 Calcium Total Bilirubin AST ALT Alkaline Phosphatase Total Protein Albumin Urine Color Urine Appearance Urine pH Ur Specific [place] Urine Protein Urine Glucose (UA) Urine Ketones Urine Blood Urine Nitrite Ur Leukocyte Esterase Urine RBC Urine WBC Ur Squamous Epith Cells Urine Bacteria Hyaline Casts Influenza Type A (PCR) NEGATIVE Influenza Type B (PCR) NEGATIVE RSV RNA Qual (PCR) NEGATIVE SARS-CoV-2 RNA (RT-PCR) NEGATIVE Assessment and Plan (1) Osteomyelitis: Qualifiers: Osteomyelitis location: unspecified site Osteomyelitis type: u nspecified type Qualified Code(s): M86.9 - Osteomyelitis, unspecified Status: Acute (2) Conjunctivitis: Qualifiers: Acute conjunctivitis type: bacterial Conjunctivitis type: acute L aterality: unspecified laterality Qualified Code(s): H10.30 - Unspecified acute conjunctivitis, unspecified eye Status: Acute Plan Patient is a 40-year-old male currently living alone and disabled/wheelchair-bound with history of right [id number] amputation secondary to diabetes, current NIDDM, PVD, chronic sacral wound with OM, CDIFF 12/2024, peripheral neuropathy, GIB, bipolar depression, PTSD, alcohol abuse last drink 01/31/2025, cocaine use, liver cirrhosis, tobacco dependence, right hip OA, obesity, and 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 Pt states his pain is remarkable and the redness, swelling and pain started about 2 days prior. Pt denies any injury, skin exposure but does not wear shoes or slippers on feet, soles of feet are dirt filled. Osteomyelitis involving left foot General Surgery Consulted Pt is on Vancomycin and Zosyn IVF continue Lactic Acid has improved to 1.6 after IVF boluses MRI of left foot ordered Pain management ordered Conjunctivitis Erythromycin ordered for 3 days GIB recent admission H/H currently stable Pt did not complete colonoscopy, left AMA No acute symptoms currently PPI on board Monitor for symptoms NIDDM SSI DIabetic diet GERD Omeperazole Hypertension Continue Lisinopril, renal fx WNL Alcohol use disorder Last drink was January 31 No issues with possible withdrawal No CIWA, no need for phenobarbitol Substabce use disorder Pt uses cocaine one every 3 months No recent use Toxicology screen pending Bipolar/PTSD Continue sertraline Continue seroquel Continue Lamotrigine CM consulted, pt dealing with threat of eviction and homelessness DVT Propylaxis: lovenox MED REC PENDING FULL CODE STATUS Quality Stroke Does the patient have a stroke diagnosis?: No Reason for No Anti-thrombotic by Day Two: N/A - Med Ordered VTE Prior VTE?: No VTE Risk Level:: Medical - moderate - high VTE Device Contraindication: N/A - Device Ordered VTE Drug Contraindication: N/A - Med Ordered
--- NOTE | 2025-04-14 03:44 | PC.NURSE ---
Scheduled LR to be started once Vanco is done infusing.
[2025-04-14 04:38] LABS: Cannabinoid Screen Urine POSITIVE (Not Detect)
[2025-04-14 05:09] LABS: Glucose, Whole Blood 206 mg/dL (60-115)
[2025-04-14 05:38] LABS: MANUAL DIFF FLAG NO
[2025-04-14 05:42] LABS: Hematocrit 35.5 % (42.0-52.0); Hemoglobin 11.4 g/dl (14.0-18.0); Imm Gran Abs Auto 0.06 X10*3/uL (0.00-0.03); Imm Gran Pct Auto 0.5 % (0.0-0.4); Lymphocytes Absolute Auto 1.6 X10*3/uL (1.2-4.9); Mean Corpuscular HGB Conc 32.1 g/dl (31.0-36.0); Mean Corpuscular Hemoglobin 27.6 pg (27.0-33.0); Mean Corpuscular Volume 86.0 fL (80.0-98.0); NRBC Abs Auto 0.000 X10*3/uL (0.0-0.012); NRBC Pct Auto 0.0 /100WBC (0.0-0.2); Platelet Count 214 X10*3/uL (160-400); Red Blood Count 4.13 X10*6/uL (4.60-5.80); White Blood Count 12.9 X10*3/uL (4.8-10.8)
--- NOTE | 2025-04-14 05:43 | PC.NURSE ---
pt keeps bending LAC which is delaying the infusion of the vanco. Pt has been told multiple times to keep arm straight; Pillow was put under arm hours ago to help with the process but still having difficulty finishing fluids. Provider was made aware.
[2025-04-14 05:55] LABS: Anion Gap 14 (12-20); Blood Urea Nitrogen 16 mg/dL (9-16); Calcium 8.8 mg/dL (8.4-10.2); Carbon Dioxide 23 mmol/L (22-29); Chloride 108 mmol/L (96-108); Creatinine Clr Calc Pharmacy 176.6; Estimated Glomerular Filt Rate > 60; Potassium 3.8 mmol/L (3.3-5.1); Sodium 141 mmol/L (135-145)
--- NOTE | 2025-04-14 06:47 | PHA.PROG ---
Admission Date/Time: April 14, 2025 03:01 Indication: bone and joint Weight in k.202 kg Serum Creatinine - Last 168 Hours 04/13/25 04/14/25 21:55 05:22 Creatinine 0.72 0.74 Estimated CrCl and GFR - Last 168 Hours 04/13/25 04/14/25 21:55 05:22 Estim Creat Clear Calc 181.5 176.6 Estimated GFR > 60 > 60 Vancomycin Loading Dose: 1500 Current Vancomycin Dosing Regimen: 1250 Q12H Vancomycin Monitoring using AUC goal of 400 - 600 range with trough as surrogate marker: 457 Date and Time for next Vancomycin Level to be drawn: 04/15 @1000 Pharmacist Comments on Vancomycin Plan: Patient was not given a full load. Patient should have at least been administered 2 grams of vancomycin as a load. Patients indication is bone and joint. Plan is to start maintence dose slightly sooner than indicated. Chose Q12H but will start 3 hours earlier than 12 hours after load to help get level up due to improper load and indication. Next level due tomorrow 04/15 @1000. Vancomycin dosing will take advantage of [employer] as a clinical decision support tool that uses Bayesian modeling to calculate individual patient's pharmacokinetic parameters and forecast the patient's drug concentration time course with the target goal AUC 24 range of 400 - 600 mg/L/hr.
[2025-04-14 07:24] LABS: Glucose, Whole Blood 150 mg/dL (60-115)
--- NOTE | 2025-04-14 08:04 | PHA.MEDREC ---
Pharmacy Consult ? Medication Reconciliation Pharmacy has completed the medication reconciliation. Spoke to patient at bedside, able to confirm medications and that his omeprazole is now 40mg. Noted he does not take his escitalopram 10mg, lamotrigine 25mg, or folic acid 1mg any longer. Last took home meds about 2 days ago.
--- NOTE | 2025-04-14 08:54 | PC.NURSE ---
iv antibiotics continue to run as patient keeps bending arm, he has been reminded by this nurse to keep arm straight as he has a US guided IV site.
--- NOTE | 2025-04-14 08:59 | P.CONGS_ITS ---
History of Present Illness Consult details Consult date: 04/14/25 Requesting physician: Nikolay Page Narrative: 40-year-old male patient presenting with complaints of left foot pain noting redness in the foot extending up the left leg. 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 He has had previous amputation of the 1st and 2nd toes of the left foot as well. He was previously diagnosed with chronic osteomyelitis involving the left foot and discharge home without antibiotics. He reports the pain has increased in the redness has extended upward. He reports that his father last year after having a stroke and he is being evicted from his home. He is now able to rent a room from his [facility] we will help care for him. He presented to the emergency department for further evaluation. An x-ray of the left foot revealed widening at the 3rd proximal interphalangeal joint which is nonspecific but differential consideration includes septic arthropathy. Review of Systems 2 Review of Systems: Yes all other systems are reviewed and are negative Constitutional: Constitutional: Denies chills, Denies fever(s), Denies headache(s), Denies poor appetite and Reports weakness ENT: Denies headache(s) Cardiovascular: Cardiovascular: Denies chest pain, Denies irregular heart rhythm, Denies palpitations and Denies dyspnea Respiratory: Respiratory: Denies cough, Denies excessive phlegm production and Denies dyspnea Gastrointestinal: Gastrointestinal: Denies abdominal pain, Denies bloating, Denies change in bowel habits, Denies constipation, Denies heartburn, Denies diarrhea, Denies nausea and Denies vomiting Genitourinary: Genitourinary: Denies difficulty urinating and Denies urinary frequency Musculoskeletal: Musculoskeletal: Denies back pain, Reports muscle weakness and Denies numbness Integumentary/Breasts: Skin/Breast: Reports changing lesions, Reports sores, Denies unusual bruising and Reports wounds Neurologic: Denies headache(s), Denies numbness, Reports paresthesias and Reports weakness Psychiatric: Psychiatric: Denies anxiety and Denies depression Endocrine: Endocrine: Denies palpitations Hematologic/Lymphatic: Hematologic/Lymphatic: Denies lymphadenopathy PMFSH Past Medical History Medical History Sacral decubitus ulcer Osteomyelitis of foot Decubitus ulcer Amputation of one or more toes Aftercare following right hip joint replacement surgery Bipolar disorder PTSD (post-traumatic stress disorder) Sacral decubitus ulcer Peripheral neuropathy Non-insulin dependent type 2 diabetes mellitus Guillain-[place] Surgical History Surgical History History of esophagogastroduodenoscopy (EGD) Hx of laminectomy History of total hip replacement Hx of right BKA Social History Social History Household Members: None Housing: House Are you a primary career technical counselor to a significant other at home: No Do you presently have visiting nurse or other home services: No Alcohol intake: former Comment: [employer] to luz marina avila Patient Tobacco Use Status: Current everyday Tobacco user Tobacco use type: Cigarette Cigarette Packs Per Day: 1 Cigarettes Per Day: 3 Years Smoked: 29 years Second Hand Smoke Exposure: No Substance Use Type: Crack/Cocaine service: No Travel History Ebola Risk: Travel/Contact With Anyone From Affected Area/s: No Has Patient Experienced Ebola Symptoms: No Meds Allergies Allergy/AdvReac Type Severity Reaction Status Date / Time baclofen Allergy Hives Verified 04/13/25 21:21 escitalopram (From Lexapro) Allergy Vomiting Verified 04/13/25 21:21 lithium Allergy Unresponsiv Verified 04/13/25 21:21 e metformin Allergy Unknown Verified 04/13/25 21:21 morphine Allergy Hives Verified 04/13/25 21:21 sulfamethoxazole (From Allergy Hives Verified 04/13/25 21:21 Bactrim) tramadol Allergy Hives Verified 04/13/25 21:21 trimethoprim (From Bactrim) Allergy Hives Verified 04/13/25 21:21 Active Medications: Current Medications Acetaminophen (Acetaminophen 325 Mg Tablet) 975 mg PO Q8H [facility] Last Admin: 04/14/25 05:07 Dose: 975 mg Albuterol/Ipratropium (Albuterol/Iprat 2.5/0.5mg 3 Ml Ampul.Neb) 3 ml INHALE Q4H PRN PRN Reason: Shortness of Breath/Wheezing Calcium Carbonate (Calcium Carbonate 750 Mg Tab.Chew) 750 mg PO Q4H PRN PRN Reason: Heartburn Dextrose (Dextrose 50 % 25 Gm/50 Ml Syringe) 25 gm IVPUSH Q15M PRN; Protocol PRN Reason: per Hypoglycemia Standing Ord. Enoxaparin Sodium (Enoxaparin Sodium 40 Mg/0.4 Ml Syringe) 40 mg SUBCUT Q24H [facility] Last Admin: 04/14/25 05:08 Dose: 40 mg Erythromycin (Erythromycin Base 0.5% Oph Oin 1 Gm Tube) 1 cm EYE-BOTH TID [facility] Glucose (Glucose Gel 15 Gm Gel..Gram.) 15 gm PO Q15M PRN; Protocol PRN Reason: per Hypoglycemia Standing Ord. Hydromorphone HCl (Hydromorphone Hcl 1 Mg/Ml Syringe) 1 mg IVPUSH Q3H PRN; Protocol PRN Reason: Pain, Severe (Pain Scale 7-10) Last Admin: 04/14/25 06:33 Dose: 1 mg Hydroxyzine HCl (Hydroxyzine Hcl 50 Mg Tablet) 50 mg PO TID [facility] Piperacillin Sod/Tazobactam (Sod 4.5 gm/ Sodium Chloride) 100 mls @ 200 mls/hr IV Q6H [facility] Last Admin: 04/14/25 07:56 Dose: 200 mls/hr Vancomycin HCl 1,250 mg/ (Sodium Chloride) 250 mls @ 166.667 mls/hr IV Q12H [facility] Insulin Human Lispro (Insulin Lispro 100 Unit/Ml 3 Ml Vial) 0 unit SUBCUT QIDACHS [facility]; Protocol Last Admin: 04/14/25 07:36 Dose: Not Given Magnesium Hydroxide (Milk Of Magnesia 30 Ml Oral.Susp) 30 ml PO DAILY PRN PRN Reason: Constipation Melatonin (Melatonin 3 Mg Tablet) 6 mg PO BEDTIME PRN PRN Reason: Insomnia Omeprazole (Omeprazole 40 Mg Capsule.Dr) 40 mg PO BID@0630,1630 [facility] Ondansetron HCl (Ondansetron Hcl 4 Mg/2 Ml Vial) 4 mg IVPUSH Q8H PRN PRN Reason: Nausea and Vomiting Pharmacy Consult (Consult Rx Vancomycin Dosing) 1 each MISCELLANE DAILY PRN PRN Reason: Consult order Polyethylene Glycol (Polyethylene Glycol 3350 17 Gm Powd.Pack) 17 gm PO DAILY PRN PRN Reason: Constipation Pregabalin (Pregabalin 75 Mg Capsule) 225 mg PO BID [facility] Quetiapine Fumarate (Quetiapine Fumarate 300 Mg Tablet) 300 mg PO BEDTIME [facility] Senna (Sennosides 8.6 Mg Tablet) 17.2 mg PO BEDTIME [facility] Sertraline HCl (Sertraline Hcl 50 Mg Tablet) 150 mg PO DAILY [facility] Sodium Chloride (0.9 % Sodium Chloride Flush 3 Ml Syringe) 3 ml IVFLUSH QSHIFT [facility] Last Admin: 04/14/25 07:18 Dose: Not Given Home Medications ?Medication ?Instructions ?Recorded ?Confirmed ?Last Taken ?Type hydroxyzine HCl 50 mg tablet 50 mg PO TID 04/14/2504/12/25 History omeprazole 40 mg capsule,delayed 40 mg PO BID@0630,163 0 04/14/25 04/14/25 04/12/25 History release pregabalin 225 mg capsule 225 mg PO BID 04/14/2504/1404/12/25 History quetiapine 300 mg tablet 300 mg PO BEDTIME 04/14/25 0 04/14/25 04/12/25 History sertraline 100 mg tablet 150 mg PO DAILY 04/14/2504/12/25 History Physical Exam 2 Vital Signs: Vital Signs: Last Vital Signs Temp 99.0 F 04/14/25 08:00 Pulse 81 04/14/25 08:00 Resp 15 04/14/25 08:00 BP 123/66 04/14/25 08:00 Pulse Ox 95 04/14/25 08:00 O2 Del Method Room Air 04/14/25 08:00 BMI result Body Mass Index 35.0 Const: General: cooperative and no acute distress Nutritional Appearance: w ell nourished Orientation/consciousness: patient oriented x3 Limitations: no limitations HEENT: Head: Yes normocephalic and Yes atraumatic Ears: hearing grossly normal bilaterally Resp: Effort & Inspection: normal respiratory effort, no audible wheezes, no cough and no respiratory distress Cardio: Jugular venous distension: no JVD GI: Inspection: Yes normal to inspection Skin: Other: Warm, dry, no rash Neuro: General: patient oriented x3 Extrem: Other: Right below-knee amputation with an intact suture incision and mild erythema base. No open wounds are appreciated Left leg with erythema extending up to the mid [place] level. No area of fluctuance identified. The erythema includes the entire foot. There is some soilage on the plantar surface but no definite open wound. Patient is tender with palpation of the 3rd and 4th toe. No fluctuance is appreciated. Left leg Results Labs 04/14/25 05:22 04/14/25 05:22 Labs: Abnormal lab results 04/13/25 04/14/25 04/14/25 Range/Units 21:55 00:16 00:52 WBC 17.4 H (4.8-10.8) X10*3/uL RBC (4.60-5.80) X10*6/uL Hgb 12.8 L (14.0-18.0) g/dl Hct 39.3 L (42.0-52.0) % Immature Gran % (Auto) 0.6 H (0.0-0.4) % Neut % (Auto) 80.2 H (45-73) % Lymph % (Auto) 11.6 L (20-40) % Abs Immat Gran (auto) 0.11 H (0.00-0.03) X10*3/uL Absolute Neuts (auto) 13.9 H (2.0-8.3) x10*3/uL POC Glucose (60-115) mg/dL Random Glucose 133 H (60-115) mg/dL Lactic Acid 3.0 H* (0.5-2.0) mmol/L Lactic Acid F/U @ 2Hr 2.2 H* (0.5-2.0) mmol/L Alkaline Phosphatase 118 H (39-117) U/L C-Reactive Protein 2.09 H (< or = 0.50) mg/dL Ur Specific [place] >= 1.030 H (1.005-1.025) Urine Glucose (UA) >=1000 H (Negative) mg/dL Urine Cocaine Screen POSITIVE H (Not Detect) U Marijuana (THC) Screen POSITIVE H (Not Detect) 04/14/25 04/14/25 04/14/25 Range/Units 05:05 05:22 07:21 WBC 12.9 H (4.8-10.8) X10*3/uL RBC 4.13 L (4.60-5.80) X10*6/uL Hgb 11.4 L (14.0-18.0) g/dl Hct 35.5 L (42.0-52.0) % Immature Gran % (Auto) 0.5 H (0.0-0.4) % Neut % (Auto) 78.4 H (45-73) % Lymph % (Auto) 12.5 L (20-40) % Abs Immat Gran (auto) 0.06 H (0.00-0.03) X10*3/uL Absolute Neuts (auto) 10.1 H (2.0-8.3) x10*3/uL POC Glucose 206 H 150 H (60-115) mg/dL Random Glucose 184 H (60-115) mg/dL Lactic Acid (0.5-2.0) mmol/L Lactic Acid F/U @ 2Hr (0.5-2.0) mmol/L Alkaline Phosphatase (39-117) U/L C-Reactive Protein (< or = 0.50) mg/dL Ur Specific [place] (1.005-1.025) Urine Glucose (UA) (Negative) mg/dL Urine Cocaine Screen (Not Detect) U Marijuana (THC) Screen (Not Detect) Short CBC 04/13/25 04/14/25 Range/Units 21:55 05:22 WBC 17.4 H 12.9 H (4.8-10.8) X10*3/uL Hgb 12.8 L 11.4 L (14.0-18.0) g/dl Hct 39.3 L 35.5 L (42.0-52.0) % Plt Count 303 D 214 D (160-400) X10*3/uL BMP 04/13/25 04/14/25 21:55 05:22 Sodium 142 141 Potassium 3.8 3.8 Chloride 103 108 Carbon Dioxide 24 23 BUN 14 16 Creatinine 0.72 0.74 Calcium 9.6 8.8 D Liver Function 04/13/25 Range/Units 21:55 Total Bilirubin 0.5 (0.0-1.0) mg/dL AST 33 (5-37) U/L ALT 33 (0-40) U/L Alkaline Phosphatase 118 H (39-117) U/L Albumin 4.6 (3.5-5.0) g/dL Urine 04/14/25 Range/Units 00:52 Urine Color Yellow Urine Appearance Clear Urine pH 6.0 (5.0-9.0) Ur Specific [place] >= 1.030 H (1.005-1.025) Urine Protein Trace (Neg-Trace) mg/dL Urine Glucose (UA) >=1000 H (Negative) mg/dL All other labs normal. Assessment and Plan (1) Cellulitis of left foot: Status: Acute (2) Osteomyelitis: Qualifiers: Osteomyelitis location: unspecified site Osteomyelitis type: u nspecified type Qualified Code(s): M86.9 - Osteomyelitis, unspecified Status: Acute Plan 40-year-old male patient with a known history of osteomyelitis involving the left foot with an extensive area of cellulitis involving the left leg extending up to the [place]. Patient currently is on IV antibiotics for the cellulitis. Suspected septic arthritis involving the 3rd toe, possibly the 4th toe is noted. Discussed possible amputation of the 3rd and 4th toe once the cellulitis has improved. The patient is in agreement that his 3rd and 4th toe may need to be amputated during this hospitalization. We will continue to monitor patient's response to antibiotics. Procedures Date of Service Date of Service: 04/14/25
[2025-04-14 09:21] LABS: Glucose, Whole Blood 154 mg/dL (60-115)
[2025-04-14] MEDS: Erythromycin Base 0.5% Oph Oin 1 GM TUBE 1 CM EYE-BOTH ×3 (10:06→19:52)
--- NOTE | 2025-04-14 10:21 | HO.PM.IMPN ---
Subjective Subjective Date of Service: 04/14/25 Interval History: c/o pain/redness/swelling of LLE; febrile to 101.7 overnight Review of Systems Review of Systems: Yes all other systems are reviewed and are negative Physical Exam Vital Signs: Vital Signs: Last Vital Signs Temp 98.3 F 04/14/25 09:19 Pulse 83 04/14/25 09:19 Resp 16 04/14/25 09:19 BP 133/80 04/14/25 09:19 Pulse Ox 97 04/14/25 09:19 O2 Del Method Room Air 04/14/25 09:19 BMI result Body Mass Index 36.6 Gen: in no acute distress HEENT: sclera anicteric, moist mucus membranes Neck: supple Lungs: clear to auscultation bilaterally Heart: regular rate and rhythm, no murmurs Abd: soft, non-tender, non-distended Ext: no edema, BKA RLE, LLE with bright-red well-demarcated erythema, 1st and 2nd toe amputations Skin: warm/well-perfused Neuro: alert and oriented x3, no focal findings Psych: appropriate affect Objective Data Active Medications Acetaminophen (Acetaminophen 325 Mg Tablet) 975 mg PO Q8H [facility] Last Admin: 04/14/25 05:07 Dose: 975 mg Documented By: ROB Albuterol/Ipratropium (Albuterol/Iprat 2.5/0.5mg 3 Ml Ampul.Neb) 3 ml INHALE Q4H PRN PRN Reason: Shortness of Breath/Wheezing Calcium Carbonate (Calcium Carbonate 750 Mg Tab.Chew) 750 mg PO Q4H PRN PRN Reason: Heartburn Dextrose (Dextrose 50 % 25 Gm/50 Ml Syringe) 25 gm IVPUSH Q15M PRN; Protocol PRN Reason: per Hypoglycemia Standing Ord. Enoxaparin Sodium (Enoxaparin Sodium 40 Mg/0.4 Ml Syringe) 40 mg SUBCUT Q24H [facility] Last Admin: 04/14/25 05:08 Dose: 40 mg Documented By: ROB Erythromycin (Erythromycin Base 0.5% Oph Oin 1 Gm Tube) 1 cm EYE-BOTH TID [facility] Last Admin: 04/14/25 10:06 Dose: 1 cm Documented By: L[place] Glucose (Glucose Gel 15 Gm Gel..Gram.) 15 gm PO Q15M PRN; Protocol PRN Reason: per Hypoglycemia Standing Ord. Hydromorphone HCl (Hydromorphone Hcl 1 Mg/Ml Syringe) 1 mg IVPUSH Q3H PRN; Protocol PRN Reason: Pain, Severe (Pain Scale 7-10) Last Admin: 04/14/25 10:06 Dose: 1 mg Documented By: SUE Hydroxyzine HCl (Hydroxyzine Hcl 50 Mg Tablet) 50 mg PO TID [facility] Last Admin: 04/14/25 10:06 Dose: 50 mg Documented By: SUE Piperacillin Sod/Tazobactam (Sod 4.5 gm/ Sodium Chloride) 100 mls @ 200 mls/hr IV Q6H [facility] Last Admin: 04/14/25 07:56 Dose: 200 mls/hr Documented By: ESTRADA Vancomycin HCl 1,250 mg/ (Sodium Chloride) 250 mls @ 166.667 mls/hr IV Q12H [facility] Insulin Human Lispro (Insulin Lispro 100 Unit/Ml 3 Ml Vial) 0 unit SUBCUT QIDACHS [facility]; Protocol Last Admin: 04/14/25 07:36 Dose: Not Given Documented By: ESTRADA Non-Admin Reason: No Insulin Coverage Magnesium Hydroxide (Milk Of Magnesia 30 Ml Oral.Susp) 30 ml PO DAILY PRN PRN Reason: Constipation Melatonin (Melatonin 3 Mg Tablet) 6 mg PO BEDTIME PRN PRN Reason: Insomnia Omeprazole (Omeprazole 40 Mg Capsule.Dr) 40 mg PO BID@0630,1630 [facility] Ondansetron HCl (Ondansetron Hcl 4 Mg/2 Ml Vial) 4 mg IVPUSH Q8H PRN PRN Reason: Nausea and Vomiting Pharmacy Consult (Consult Rx Vancomycin Dosing) 1 each MISCELLANE DAILY PRN PRN Reason: Consult order Polyethylene Glycol (Polyethylene Glycol 3350 17 Gm Powd.Pack) 17 gm PO DAILY PRN PRN Reason: Constipation Pregabalin (Pregabalin 75 Mg Capsule) 225 mg PO BID [facility] Last Admin: 04/14/25 10:05 Dose: 225 mg Documented By: SUE Quetiapine Fumarate (Quetiapine Fumarate 300 Mg Tablet) 300 mg PO BEDTIME [facility] Senna (Sennosides 8.6 Mg Tablet) 17.2 mg PO BEDTIME [facility] Sertraline HCl (Sertraline Hcl 50 Mg Tablet) 150 mg PO DAILY [facility] Last Admin: 04/14/25 10:05 Dose: 150 mg Documented By: SUE Sodium Chloride (0.9 % Sodium Chloride Flush 3 Ml Syringe) 3 ml IVFLUSH QSHIFT [facility] Last Admin: 04/14/25 07:18 Dose: Not Given Documented By: ESTRADA Non-Admin Reason: IV Running Labs 04/14/25 05:22 04/14/25 05:22 Labs: Laboratory Results - last 24 hr 04/13/25 04/14/25 04/14/25 21:55 00:16 00:52 MCV 85.1 MCH 27.7 MCHC 32.6 RDW 14.7 Plt Count 303 D MPV 10.9 Immature Gran % (Auto) 0.6 H Neut % (Auto) 80.2 H Lymph % (Auto) 11.6 L [place] % (Auto) 6.9 Eos % (Auto) 0.3 Baso % (Auto) 0.4 Lymph # (Auto) 2.0 [place] # (Auto) 1.2 Eos # (Auto) 0.1 Baso # (Auto) 0.1 Abs Immat Gran (auto) 0.11 H Absolute Neuts (auto) 13.9 H Absolute Nucleated RBC 0.000 Nucleated RBC % (auto) 0.0 ESR Anion Gap 19 Estim Creat Clear Calc 181.5 Estimated GFR > 60 POC Glucose Random Glucose 133 H Lactic Acid 3.0 H* Lactic Acid F/U @ 2Hr 2.2 H* Lactic Acid F/U @ 4Hr Calcium 9.6 Total Bilirubin 0.5 AST 33 ALT 33 Alkaline Phosphatase 118 H C-Reactive Protein 2.09 H Total Protein 7.7 Albumin 4.6 Urine Color Yellow Urine Appearance Clear Urine pH 6.0 Ur Specific [place] >= 1.030 H Urine Protein Trace Urine Glucose (UA) >=1000 H Urine Ketones Trace Urine Blood Negative Urine Nitrite Negative Ur Leukocyte Esterase Negative Urine RBC 0-2 Urine WBC 0-5 Ur Squamous Epith Cells 0-2 Urine Bacteria None Seen Hyaline Casts 0-2 Urine Opiates Screen Not Detected Ur Buprenorphine Scrn Not Detected Ur Oxycodone Screen Not Detected Urine Methadone Screen Not Detected Urine Fentanyl Screen Not Detected Ur Barbiturates Screen Not Detected Ur Phencyclidine Scrn Not Detected Ur Amphetamines Screen Not Detected U Benzodiazepines Scrn Not Detected Urine Cocaine Screen POSITIVE H U Marijuana (THC) Screen POSITIVE H Influenza Type A (PCR) Influenza Type B (PCR) RSV RNA Qual (PCR) SARS-CoV-2 RNA (RT-PCR) 04/14/25 04/14/25 04/14/25 01:14 02:51 05:05 MCV MCH MCHC RDW Plt Count MPV Immature Gran % (Auto) Neut % (Auto) Lymph % (Auto) [place] % (Auto) Eos % (Auto) Baso % (Auto) Lymph # (Auto) [place] # (Auto) Eos # (Auto) Baso # (Auto) Abs Immat Gran (auto) Absolute Neuts (auto) Absolute Nucleated RBC Nucleated RBC % (auto) ESR Anion Gap Estim Creat Clear Calc Estimated GFR POC Glucose 206 H Random Glucose Lactic Acid Lactic Acid F/U @ 2Hr Lactic Acid F/U @ 4Hr 1.7 Calcium Total Bilirubin AST ALT Alkaline Phosphatase C-Reactive Protein Total Protein Albumin Urine Color Urine Appearance Urine pH Ur Specific [place] Urine Protein Urine Glucose (UA) Urine Ketones Urine Blood Urine Nitrite Ur Leukocyte Esterase Urine RBC Urine WBC Ur Squamous Epith Cells Urine Bacteria Hyaline Casts Urine Opiates Screen Ur Buprenorphine Scrn Ur Oxycodone Screen Urine Methadone Screen Urine Fentanyl Screen Ur Barbiturates Screen Ur Phencyclidine Scrn Ur Amphetamines Screen U Benzodiazepines Scrn Urine Cocaine Screen U Marijuana (THC) Screen Influenza Type A (PCR) NEGATIVE Influenza Type B (PCR) NEGATIVE RSV RNA Qual (PCR) NEGATIVE SARS-CoV-2 RNA (RT-PCR) NEGATIVE 04/14/25 04/14/25 04/14/25 05:22 07:21 09:17 MCV 86.0 MCH 27.6 MCHC 32.1 RDW 14.7 Plt Count 214 D MPV 11.0 Immature Gran % (Auto) 0.5 H Neut % (Auto) 78.4 H Lymph % (Auto) 12.5 L [place] % (Auto) 7.6 Eos % (Auto) 0.7 Baso % (Auto) 0.3 Lymph # (Auto) 1.6 [place] # (Auto) 1.0 Eos # (Auto) 0.1 Baso # (Auto) 0.0 Abs Immat Gran (auto) 0.06 H Absolute Neuts (auto) 10.1 H Absolute Nucleated RBC 0.000 Nucleated RBC % (auto) 0.0 ESR 13 Anion Gap 14 Estim Creat Clear Calc 176.6 Estimated GFR > 60 POC Glucose 150 H 154 H Random Glucose 184 H Lactic Acid Lactic Acid F/U @ 2Hr Lactic Acid F/U @ 4Hr Calcium 8.8 D Total Bilirubin AST ALT Alkaline Phosphatase C-Reactive Protein Total Protein Albumin Urine Color Urine Appearance Urine pH Ur Specific [place] Urine Protein Urine Glucose (UA) Urine Ketones Urine Blood Urine Nitrite Ur Leukocyte Esterase Urine RBC Urine WBC Ur Squamous Epith Cells Urine Bacteria Hyaline Casts Urine Opiates Screen Ur Buprenorphine Scrn Ur Oxycodone Screen Urine Methadone Screen Urine Fentanyl Screen Ur Barbiturates Screen Ur Phencyclidine Scrn Ur Amphetamines Screen U Benzodiazepines Scrn Urine Cocaine Screen U Marijuana (THC) Screen Influenza Type A (PCR) Influenza Type B (PCR) RSV RNA Qual (PCR) SARS-CoV-2 RNA (RT-PCR) Assessment and Plan (1) Cellulitis of left foot: Status: Acute Assessment and Plan: d1, 40yo M with DM and hx R BKA, PVD, chronic sacral wound, prior C. difficile, peripheral neuroatphy, PTSD, bipolar disorder, polysubstance abuse, cirrhosis, hx leaving AMA February 2025 after admission for GI bleed, presenting with sepsis due to infection of LLE LLE DM cellulitis - MRI to r/o osteomyelitis, continue vancomycin + piperacillin-tazobactam; add clindamycin to shut off toxin production; add PO vancomycin due to hx C. difficile infection; ID consult + Wound Care consult pending conjunctivitis - erythromycin ointment hx GI bleed, signed out AMA February 2025 - H+H stable DM2 - correction-dose lispro GERD - PPI cocaine abuse - Addiction Medicine consult, HBV/HCV/HIV screen neuropathy - continue pregabalin bipolar disorder PTSD - continue hydroxyzine, quetiapine, sertraline VTE ppx - enoxaparin dispo - TBD In my clinical judgment, the patient requires continued inpatient hospitalization for the following reasons: IV ABX Total time managing care of this patient today: 35 minutes. Quality Stroke Does the patient have a stroke diagnosis?: No Reason for No Anti-thrombotic by Day Two: N/A - Med Ordered VTE Prior VTE?: No VTE Risk Level:: Medical - moderate - high VTE Device Contraindication: N/A - Device Ordered VTE Drug Contraindication: N/A - Med Ordered
[2025-04-14 11:08] LABS: Hemoglobin A1C 141.1097 umol/L; Total Hemoglobin (HGBA1C) 3014.7486 umol/L
[2025-04-14 11:13] LABS: Glucose, Whole Blood 174 mg/dL (60-115)
[2025-04-14] MEDS: Nicotine 14 MG PATCH.TD24 TRANSDERMA (13:43)
[2025-04-14 16:15] LABS: Glucose, Whole Blood 152 mg/dL (60-115)
[2025-04-14] MEDS: 0.9 % Sodium Chloride Flush 3 ML SYRINGE IVFLUSH (16:41)
--- NOTE | 2025-04-14 17:02 | MHC.RECOVRN ---
Met with pt in 375- after consult placed to Addiction Medicine for cocaine use. Pt was sitting in bed, alert and oriented. Speech is hyperverbal and circumstantial, however pt is attentive and engaged during interview. TW met with the patient to discuss current substance use and concerns related to increased risk of substance use related problems. Patient reports he uses cocaine, ?every 3 months?. He states ?it?s not a real problem, I?m able to control it?. He identifies boredom and pain as contributing factors to his continued cocaine use. Pt reports he has been in remission for AUD since the of his father in December of this year and has also abstained from opiate use ?for a long, long time?. He goes to report he was prescribed ?84 morphine pill a month? after a surgery but could took them all in 3-4 days. He denies experiencing withdrawal symptoms at that time. Discussed how substance use has impacted health, including negative impact on mental health and overall physical well being. Discussed risk and reduction strategies including drug testing, the importance of proper nutrition, oral care, hydration and not mixing drugs Provided pt with written resources including information on inpatient and outpatient treatment, harm reduction, recovery coaching and the START program for stimulant use. Patient reports he has utilized a disaster recovery specialist in the past and met approximately six times, ?but they started pushing the God thing?. TW encouraged pt to reconsider and to connect with a new wrestling coach with similar beliefs and values. Pt declines intervention, or outpatient appt for treatment related to [facility] at this time. Pt was provided with TW?s contact information if questions or concerns arise. Pt denies further questions or concerns at this time.
[2025-04-14 20:09] LABS: Glucose, Whole Blood 151 mg/dL (60-115)
--- NOTE | 2025-04-14 23:47 | W.PM.IDCN ---
History of Present Illness Data of Consult Service Date: 04/14/25 Requesting physician: Nikolay Page Primary Care Provider: Unknown Physician HPI Reason for consult: left second toe OM He presents with fever to 101.7 and pain left foot especially first and second toe for a day. He has had stay in January for foot infection and MRI now shows second toe OM He is ambivalent about what he wants done. Review of Systems Review of Systems: Yes all other systems are reviewed and are negative PMFSH Past Medical History Medical History Sacral decubitus ulcer Osteomyelitis of foot Decubitus ulcer Amputation of one or more toes Aftercare following right hip joint replacement surgery Bipolar disorder PTSD (post-traumatic stress disorder) Sacral decubitus ulcer Peripheral neuropathy Non-insulin dependent type 2 diabetes mellitus [place] Family History Family history: reviewed and not pertinent Surgical History Surgical History History of esophagogastroduodenoscopy (EGD) Hx of laminectomy History of total hip replacement Hx of right BKA Social History Social History Household Members: None Housing: Condominium Are you a primary urgent care technician to a significant other at home: No Do you presently have visiting nurse or other home services: Yes (AUDITOR IN CHARGE twice daily, every day) Alcohol intake: former Comment: stand pivot to luz marina avila Patient Tobacco Use Status: Current everyday Tobacco user Tobacco use type: Cigarette Cigarette Packs Per Day: 1 Cigarettes Per Day: 3 Years Smoked: 29 years Second Hand Smoke Exposure: No Substance Use Type: Crack/Cocaine service: No Travel History Ebola Risk: Travel/Contact With Anyone From Affected Area/s: No Has Patient Experienced Ebola Symptoms: No Meds Allergies Allergy/AdvReac Type Severity Reaction Status Date / Time baclofen Allergy Hives Verified 04/13/25 21:21 escitalopram (From Lexapro) Allergy Vomiting Verified 04/13/25 21:21 lithium Allergy Unresponsiv Verified 04/13/25 21:21 e metformin Allergy Unknown Verified 04/13/25 21:21 morphine Allergy Hives Verified 04/13/25 21:21 sulfamethoxazole (From Allergy Hives Verified 04/13/25 21:21 Bactrim) tramadol Allergy Hives Verified 04/13/25 21:21 trimethoprim (From Bactrim) Allergy Hives Verified 04/13/25 21:21 Active Medications: Current Medications Acetaminophen (Acetaminophen 325 Mg Tablet) 975 mg PO Q8H [facility] Last Admin: 04/14/25 22:55 Dose: 975 mg Albuterol/Ipratropium (Albuterol/Iprat 2.5/0.5mg 3 Ml Ampul.Neb) 3 ml INHALE Q4H PRN PRN Reason: Shortness of Breath/Wheezing Calcium Carbonate (Calcium Carbonate 750 Mg Tab.Chew) 750 mg PO Q4H PRN PRN Reason: Heartburn Dextrose (Dextrose 50 % 25 Gm/50 Ml Syringe) 25 gm IVPUSH Q15M PRN; Protocol PRN Reason: per Hypoglycemia Standing Ord. Enoxaparin Sodium (Enoxaparin Sodium 40 Mg/0.4 Ml Syringe) 40 mg SUBCUT Q24H [facility] Last Admin: 04/14/25 05:08 Dose: 40 mg Erythromycin (Erythromycin Base 0.5% Oph Oin 1 Gm Tube) 1 cm EYE-BOTH TID [facility] Last Admin: 04/14/25 19:52 Dose: 1 cm Glucose (Glucose Gel 15 Gm Gel..Gram.) 15 gm PO Q15M PRN; Protocol PRN Reason: per Hypoglycemia Standing Ord. Hydromorphone HCl (Hydromorphone Hcl 1 Mg/Ml Syringe) 1 mg IVPUSH Q3H PRN; Protocol PRN Reason: Pain, Severe (Pain Scale 7-10) Last Admin: 04/14/25 20:36 Dose: 1 mg Hydroxyzine HCl (Hydroxyzine Hcl 50 Mg Tablet) 50 mg PO TID [facility] Last Admin: 04/14/25 19:52 Dose: 50 mg Piperacillin Sod/Tazobactam (Sod 4.5 gm/ Sodium Chloride) 100 mls @ 200 mls/hr IV Q6H [facility] Last Infusion: 04/14/25 20:35 Dose: Infused Vancomycin HCl 1,250 mg/ (Sodium Chloride) 250 mls @ 166.667 mls/hr IV Q12H [facility] Last Admin: 04/14/25 23:00 Dose: 166.6 mls/hr Clindamycin Phosphate (Cleocin) 600 mg in 50 mls @ 100 mls/hr IV Q8H [facility] Last Infusion: 04/14/25 19:04 Dose: Infused Insulin Human Lispro (Insulin Lispro 100 Unit/Ml 3 Ml Vial) 0 unit SUBCUT QIDACHS [facility]; Protocol Last Admin: 04/14/25 20:35 Dose: 2 unit Magnesium Hydroxide (Milk Of Magnesia 30 Ml Oral.Susp) 30 ml PO DAILY PRN PRN Reason: Constipation Melatonin (Melatonin 3 Mg Tablet) 6 mg PO BEDTIME PRN PRN Reason: Insomnia Nicotine (Nicotine 14 Mg Patch.Td24) 14 mg TRANSDERMA DAILY [facility] Last Admin: 04/14/25 13:43 Dose: 14 mg Omeprazole (Omeprazole 40 Mg Capsule.Dr) 40 mg PO BID@0630,1630 [facility] Last Admin: 04/14/25 16:42 Dose: 40 mg Ondansetron HCl (Ondansetron Hcl 4 Mg/2 Ml Vial) 4 mg IVPUSH Q8H PRN PRN Reason: Nausea and Vomiting Pharmacy Consult (Consult Rx Vancomycin Dosing) 1 each MISCELLANE DAILY PRN PRN Reason: Consult order Polyethylene Glycol (Polyethylene Glycol 3350 17 Gm Powd.Pack) 17 gm PO DAILY PRN PRN Reason: Constipation Pregabalin (Pregabalin 75 Mg Capsule) 225 mg PO BID [facility] Last Admin: 04/14/25 19:52 Dose: 225 mg Quetiapine Fumarate (Quetiapine Fumarate 300 Mg Tablet) 300 mg PO BEDTIME [facility] Last Admin: 04/14/25 19:52 Dose: 300 mg Senna (Sennosides 8.6 Mg Tablet) 17.2 mg PO BEDTIME [facility] Last Admin: 04/14/25 19:51 Dose: 17.2 mg Sertraline HCl (Sertraline Hcl 50 Mg Tablet) 150 mg PO DAILY [facility] Last Admin: 04/14/25 10:05 Dose: 150 mg Sodium Chloride (0.9 % Sodium Chloride Flush 3 Ml Syringe) 3 ml IVFLUSH QSHIFT [facility] Last Admin: 04/14/25 16:41 Dose: 3 ml Vancomycin HCl (Vancomycin Hcl 125 Mg Capsule) 125 mg PO DAILY [facility] Last Admin: 04/14/25 11:14 Dose: 125 mg Home Medications ?Medication ?Instructions ?Recorded ?Confirmed ?Last Taken ?Type hydroxyzine HCl 50 mg tablet 50 mg PO TID 04/14/25 04/14/2504/12/25 History omeprazole 40 mg capsule,delayed 40 mg PO BID@0630,1630 04/14/25 04/14/25 04/12/25 History release pregabalin 225 mg capsule 225 mg PO BID 04/14/25 04/14/25 04/12/25 History quetiapine 300 mg tablet 300 mg PO BEDTIME 04/14/25 04/14/25 04/12/25 History sertraline 100 mg tablet 150 mg PO DAILY 04/14/25 04/14/25 04/12/25 History Physical Exam Vital Signs: Vital Signs: Last Vital Signs Temp 96.8 F 04/14/25 23:24 Pulse 90 04/14/25 23:24 Resp 18 04/14/25 23:24 BP 118/76 04/14/25 23:24 Pulse Ox 95 04/14/25 23:24 O2 Del Method Room Air 04/14/25 23:24 BMI result Body Mass Index 36.6 Extrem: Other: right BKA, left foot hot swollen 1st and 2nd toes neuropathy Results Labs 04/14/25 05:22 04/14/25 05:22 Labs: Short CBC 04/14/25 Range/Units 05:22 WBC 12.9 H (4.8-10.8) X10*3/uL Hgb 11.4 L (14.0-18.0) g/dl Hct 35.5 L (42.0-52.0) % Plt Count 214 D (160-400) X10*3/uL BMP 04/14/25 05:22 Sodium 141 Potassium 3.8 Chloride 108 Carbon Dioxide 23 BUN 16 Creatinine 0.74 Calcium 8.8 D Urine 04/14/25 Range/Units 00:52 Urine Color Yellow Urine Appearance Clear Urine pH 6.0 (5.0-9.0) Ur Specific [place] >= 1.030 H (1.005-1.025) Urine Protein Trace (Neg-Trace) mg/dL Urine Glucose (UA) >=1000 H (Negative) mg/dL Assessment and Plan (1) Osteomyelitis: Qualifiers: Osteomyelitis type: unspecified type Osteomyelitis location: unspecified site Qualified Code(s): M86.9 - Osteomyelitis, unspecified Status: Acute (2) Septic arthritis of left foot: Status: Acute (3) Sepsis: Status: Acute Plan He has OM left foot He realizes this is likely chronic and may be gram positive organisms Amputation is curative for the toes involved He also is not in favor of six weeks IV Vancomycin or Daptomycin which he realizes is not curative. For now would continue Vancomycin and Zosyn possibly six weeks Vancomycin or Daptomycin but he may choose amputation. Wound care to sacrum
[2025-04-15 03:41] VITALS: BP 134/75; PULSE 87; RESP 18; TEMP 36.2; O2SAT 96
[2025-04-15 04:55] VITALS: RESP 16
[2025-04-15 06:46] LABS: Creatinine Clr Calc Pharmacy 209.0; Estimated Glomerular Filt Rate > 60
[2025-04-15 07:29] LABS: Glucose, Whole Blood 117 mg/dL (60-115)
[2025-04-15 07:34] VITALS: BP 123/79; PULSE 82; RESP 18; TEMP 36.6; O2SAT 96
[2025-04-15] MEDS: Nicotine 14 MG PATCH.TD24 TRANSDERMA (08:39)
[2025-04-15] MEDS: Erythromycin Base 0.5% Oph Oin 1 GM TUBE 1 CM EYE-BOTH ×3 (08:40→21:47)
[2025-04-15] MEDS: 0.9 % Sodium Chloride Flush 3 ML SYRINGE IVFLUSH ×2 (08:40→15:17)
--- NOTE | 2025-04-15 09:46 | P.PNGS_ITS ---
Subjective Subjective Date of Service: 04/15/25 Interval history: Patient feels improved this morning with decreased pain in the left leg. Still requiring pain medication however for occasional increased pain. 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 Erythema over the foot appears much improved as well. Objective Data Active Medications Acetaminophen (Acetaminophen 325 Mg Tablet) 975 mg PO Q8H [facility] Last Admin: 04/15/25 05:59 Dose: 975 mg Documented By: FABIENNE Albuterol/Ipratropium (Albuterol/Iprat 2.5/0.5mg 3 Ml Ampul.Neb) 3 ml INHALE Q4H PRN PRN Reason: Shortness of Breath/Wheezing Calcium Carbonate (Calcium Carbonate 750 Mg Tab.Chew) 750 mg PO Q4H PRN PRN Reason: Heartburn Dextrose (Dextrose 50 % 25 Gm/50 Ml Syringe) 25 gm IVPUSH Q15M PRN; Protocol PRN Reason: per Hypoglycemia Standing Ord. Enoxaparin Sodium (Enoxaparin Sodium 40 Mg/0.4 Ml Syringe) 40 mg SUBCUT Q24H [facility] Last Admin: 04/15/25 05:59 Dose: 40 mg Documented By: FABIENNE Erythromycin (Erythromycin Base 0.5% Oph Oin 1 Gm Tube) 1 cm EYE-BOTH TID [facility] Last Admin: 04/15/25 08:40 Dose: 1 cm Documented By: GERARDOIAME Glucose (Glucose Gel 15 Gm Gel..Gram.) 15 gm PO Q15M PRN; Protocol PRN Reason: per Hypoglycemia Standing Ord. Hydromorphone HCl (Hydromorphone Hcl 1 Mg/Ml Syringe) 1 mg IVPUSH Q3H PRN; Protocol PRN Reason: Pain, Severe (Pain Scale 7-10) Last Admin: 04/15/25 08:41 Dose: 1 mg Documented By: SUE Hydroxyzine HCl (Hydroxyzine Hcl 50 Mg Tablet) 50 mg PO TID [facility] Last Admin: 04/15/25 08:39 Dose: 50 mg Documented By: SUE Piperacillin Sod/Tazobactam (Sod 4.5 gm/ Sodium Chloride) 100 mls @ 200 mls/hr IV Q6H [facility] Last Infusion: 04/15/25 09:33 Dose: Infused Documented By: SUE Vancomycin HCl 1,250 mg/ (Sodium Chloride) 250 mls @ 166.667 mls/hr IV Q12H [facility] Last Infusion: 04/15/25 00:31 Dose: Infused Documented By: RUTHY Insulin Human Lispro (Insulin Lispro 100 Unit/Ml 3 Ml Vial) 0 unit SUBCUT QIDACHS [facility]; Protocol Last Admin: 04/15/25 07:30 Dose: Not Given Documented By: SUE Non-Admin Reason: No Insulin Coverage Magnesium Hydroxide (Milk Of Magnesia 30 Ml Oral.Susp) 30 ml PO DAILY PRN PRN Reason: Constipation Melatonin (Melatonin 3 Mg Tablet) 6 mg PO BEDTIME PRN PRN Reason: Insomnia Nicotine (Nicotine 14 Mg Patch.Td24) 14 mg TRANSDERMA DAILY [facility] Last Admin: 04/15/25 08:39 Dose: 14 mg Documented By: SUE Omeprazole (Omeprazole 40 Mg Capsule.) 40 mg PO BID@0630,1630 [facility] Last Admin: 04/15/25 05:59 Dose: 40 mg Documented By: FABIENNE Ondansetron HCl (Ondansetron Hcl 4 Mg/2 Ml Vial) 4 mg IVPUSH Q8H PRN PRN Reason: Nausea and Vomiting Pharmacy Consult (Consult Rx Vancomycin Dosing) 1 each MISCELLANE DAILY PRN PRN Reason: Consult order Polyethylene Glycol (Polyethylene Glycol 3350 17 Gm Powd.Pack) 17 gm PO DAILY PRN PRN Reason: Constipation Pregabalin (Pregabalin 75 Mg Capsule) 225 mg PO BID [facility] Last Admin: 04/15/25 08:39 Dose: 225 mg Documented By: SUE Quetiapine Fumarate (Quetiapine Fumarate 300 Mg Tablet) 300 mg PO BEDTIME [facility] Last Admin: 04/14/25 19:52 Dose: 300 mg Documented By: FABIENNE Senna (Sennosides 8.6 Mg Tablet) 17.2 mg PO BEDTIME [facility] Last Admin: 04/14/25 19:51 Dose: 17.2 mg Documented By: FABIENNE Sertraline HCl (Sertraline Hcl 50 Mg Tablet) 150 mg PO DAILY [facility] Last Admin: 04/15/25 08:39 Dose: 150 mg Documented By: SUE Sodium Chloride (0.9 % Sodium Chloride Flush 3 Ml Syringe) 3 ml IVFLUSH QSHIFT [facility] Last Admin: 04/15/25 08:40 Dose: 3 ml Documented By: SUE Vancomycin HCl (Vancomycin Hcl 125 Mg Capsule) 125 mg PO DAILY [facility] Last Admin: 04/15/25 08:39 Dose: 125 mg Documented By: SUE Labs 04/14/25 05:22 04/15/25 05:40 Labs: Laboratory Results - last 24 hr 04/14/25 04/14/25 04/14/25 05:22 11:04 16:03 Estim Creat Clear Calc Estimated GFR POC Glucose 174 H 152 H Estimat Average Glucose 137 Hemoglobin A1c % 6.4 H 04/14/25 04/15/25 04/15/25 20:04 05:40 07:20 Estim Creat Clear Calc 209.0 Estimated GFR > 60 POC Glucose 151 H 117 H Estimat Average Glucose Hemoglobin A1c % Microbiology Microbiology Results: Microbiology 04/13/25 21:55 Blood Culture - Preliminary Blood - Venous No growth after 24 hours. 04/13/25 21:54 Blood Culture - Preliminary Blood - Venous No growth after 24 hours. Procedures Date of Service Date of Service: 04/15/25 Progress Note: A&P Assessment and plan (1) Cellulitis of left foot: Status: Acute (2) Osteomyelitis: Status: Acute Plan Overall patient is improved. MRI of the foot reviewed with evidence of possible osteomyelitis of the 2nd metatarsal head and 3rd proximal phalanx and IP joint. 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 Options include prolonged antibiotics or amputation (transmetatarsal or ray amputation). Patient considering amputation because of the recurrent nature of his infections. Will discuss with hospitalist team. Time Spent With Patient Time: Total time managing care of this patient today ____ minutes. Quality Stroke Does the patient have a stroke diagnosis?: No Reason for No Anti-thrombotic by Day Two: N/A - Med Ordered VTE Prior VTE?: No VTE Risk Level:: Medical - moderate - high VTE Device Contraindication: N/A - Device Ordered VTE Drug Contraindication: N/A - Med Ordered
--- NOTE | 2025-04-15 10:06 | MHC.CM.PN ---
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
--- NOTE | 2025-04-15 10:59 | P.PNIM_ITS ---
Subjective Subjective Date of Service: 04/15/25 Interval History: fever resolved; swelling + redness improving Review of Systems Review of Systems: Yes all other systems are reviewed and are negative Physical Exam 2 Vital Signs: Vital Signs: Last Vital Signs Temp 97.8 F 04/15/25 07:34 Pulse 82 04/15/25 07:34 Resp 18 04/15/25 07:34 BP 123/79 04/15/25 07:34 Pulse Ox 96 04/15/25 07:34 O2 Del Method Room Air 04/15/25 07:34 BMI result Body Mass Index 36.6 Gen: in no acute distress HEENT: sclera anicteric, moist mucus membranes Neck: supple Lungs: clear to auscultation bilaterally Heart: regular rate and rhythm, no murmurs Abd: soft, non-tender, non-distended Ext: no edema, BKA RLE, LLE with improvement in erythema, partial L 1st and 2nd toe amputations Skin: warm/well-perfused Neuro: alert and oriented x3, no focal findings Psych: appropriate affect Objective Data Active Medications Acetaminophen (Acetaminophen 325 Mg Tablet) 975 mg PO Q8H [facility] Last Admin: 04/15/25 05:59 Dose: 975 mg Documented By: FABIENNE Albuterol/Ipratropium (Albuterol/Iprat 2.5/0.5mg 3 Ml Ampul.Neb) 3 ml INHALE Q4H PRN PRN Reason: Shortness of Breath/Wheezing Calcium Carbonate (Calcium Carbonate 750 Mg Tab.Chew) 750 mg PO Q4H PRN PRN Reason: Heartburn Dextrose (Dextrose 50 % 25 Gm/50 Ml Syringe) 25 gm IVPUSH Q15M PRN; Protocol PRN Reason: per Hypoglycemia Standing Ord. Enoxaparin Sodium (Enoxaparin Sodium 40 Mg/0.4 Ml Syringe) 40 mg SUBCUT Q24H [facility] Last Admin: 04/15/25 05:59 Dose: 40 mg Documented By: FABIENNE Erythromycin (Erythromycin Base 0.5% Oph Oin 1 Gm Tube) 1 cm EYE-BOTH TID [facility] Last Admin: 04/15/25 08:40 Dose: 1 cm Documented By: LUCIAME Glucose (Glucose Gel 15 Gm Gel..Gram.) 15 gm PO Q15M PRN; Protocol PRN Reason: per Hypoglycemia Standing Ord. Hydromorphone HCl (Hydromorphone Hcl 1 Mg/Ml Syringe) 1 mg IVPUSH Q3H PRN; Protocol PRN Reason: Pain, Severe (Pain Scale 7-10) Last Admin: 04/15/25 08:41 Dose: 1 mg Documented By: SUE Hydroxyzine HCl (Hydroxyzine Hcl 50 Mg Tablet) 50 mg PO TID [facility] Last Admin: 04/15/25 08:39 Dose: 50 mg Documented By: SUE Piperacillin Sod/Tazobactam (Sod 4.5 gm/ Sodium Chloride) 100 mls @ 200 mls/hr IV Q6H [facility] Last Infusion: 04/15/25 09:33 Dose: Infused Documented By: SUE Vancomycin HCl 1,250 mg/ (Sodium Chloride) 250 mls @ 166.667 mls/hr IV Q12H [facility] Last Infusion: 04/15/25 00:31 Dose: Infused Documented By: RUTHY Insulin Human Lispro (Insulin Lispro 100 Unit/Ml 3 Ml Vial) 0 unit SUBCUT QIDACHS [facility]; Protocol Last Admin: 04/15/25 07:30 Dose: Not Given Documented By: SUE Non-Admin Reason: No Insulin Coverage Magnesium Hydroxide (Milk Of Magnesia 30 Ml Oral.Susp) 30 ml PO DAILY PRN PRN Reason: Constipation Melatonin (Melatonin 3 Mg Tablet) 6 mg PO BEDTIME PRN PRN Reason: Insomnia Nicotine (Nicotine 14 Mg Patch.Td24) 14 mg TRANSDERMA DAILY [facility] Last Admin: 04/15/25 08:39 Dose: 14 mg Documented By: SUE Omeprazole (Omeprazole 40 Mg Capsule.) 40 mg PO BID@0630,1630 [facility] Last Admin: 04/15/25 05:59 Dose: 40 mg Documented By: FABIENNE Ondansetron HCl (Ondansetron Hcl 4 Mg/2 Ml Vial) 4 mg IVPUSH Q8H PRN PRN Reason: Nausea and Vomiting Pharmacy Consult (Consult Rx Vancomycin Dosing) 1 each MISCELLANE DAILY PRN PRN Reason: Consult order Polyethylene Glycol (Polyethylene Glycol 3350 17 Gm Powd.Pack) 17 gm PO DAILY PRN PRN Reason: Constipation Pregabalin (Pregabalin 75 Mg Capsule) 225 mg PO BID [facility] Last Admin: 04/15/25 08:39 Dose: 225 mg Documented By: SUE Quetiapine Fumarate (Quetiapine Fumarate 300 Mg Tablet) 300 mg PO BEDTIME [facility] Last Admin: 04/14/25 19:52 Dose: 300 mg Documented By: FABIENNE Senna (Sennosides 8.6 Mg Tablet) 17.2 mg PO BEDTIME [facility] Last Admin: 04/14/25 19:51 Dose: 17.2 mg Documented By: FABIENNE Sertraline HCl (Sertraline Hcl 50 Mg Tablet) 150 mg PO DAILY [facility] Last Admin: 04/15/25 08:39 Dose: 150 mg Documented By: SUE Sodium Chloride (0.9 % Sodium Chloride Flush 3 Ml Syringe) 3 ml IVFLUSH QSHIFT [facility] Last Admin: 04/15/25 08:40 Dose: 3 ml Documented By: SUE Vancomycin HCl (Vancomycin Hcl 125 Mg Capsule) 125 mg PO DAILY [facility] Last Admin: 04/15/25 08:39 Dose: 125 mg Documented By: SUE Labs 04/14/25 05:22 04/15/25 05:40 Labs: Laboratory Results - last 24 hr 04/14/25 04/14/25 04/14/25 05:22 11:04 16:03 Estim Creat Clear Calc Estimated GFR POC Glucose 174 H 152 H Estimat Average Glucose 137 Hemoglobin A1c % 6.4 H Random Vancomycin 04/14/25 04/15/25 04/15/25 20:04 05:40 07:20 Estim Creat Clear Calc 209.0 Estimated GFR > 60 POC Glucose 151 H 117 H Estimat Average Glucose Hemoglobin A1c % Random Vancomycin 04/15/25 09:51 Estim Creat Clear Calc Estimated GFR POC Glucose Estimat Average Glucose Hemoglobin A1c % Random Vancomycin 8.0 L arterial duplex LLE 04/15/25 Suspect diffuse atherosclerotic disease with areas of [id number] stenosis in the superficial femoral artery. Microbiology Microbiology Results: Microbiology 04/13/25 21:55 Blood Culture - Preliminary Blood - Venous No growth after 24 hours. 04/13/25 21:54 Blood Culture - Preliminary Blood - Venous No growth after 24 hours. Assessment and Plan (1) Cellulitis of left foot: Status: Acute Assessment and Plan: d2, 40yo M with DM and hx R BKA, PVD, chronic sacral wound, prior C. difficile, peripheral neuroatphy, PTSD, bipolar disorder, polysubstance abuse, cirrhosis, hx leaving AMA February 2025 after admission for GI bleed, presenting with sepsis due to infection of LLE LLE DM cellulitis/osteomyelitis of 2nd metatarsal head and 3rd proximal phalanx and IP joint PAD - 04/14- vancomycin + piperacillin-tazobactam; d/c clindamycin 04/14-04/15 [given for 24h to shut off toxin production]; added prophylactic PO vancomycin due to hx C. difficile infection - Gen Surg consulted; considering amputation - Vasc Surg pending chronic sacral wound - Wound Care consult pending conjunctivitis - erythromycin ointment hx GI bleed, signed out AMA February 2025 - H+H stable DM2, A1c 6.4, well-controlled - correction-dose lispro GERD - PPI cocaine abuse - Recovery Team consulted, declined intervention, HBV/HCV/HIV screen pending neuropathy - continue pregabalin bipolar disorder PTSD - continue hydroxyzine, quetiapine, sertraline VTE ppx - enoxaparin dispo - TBD In my clinical judgment, the patient requires continued inpatient hospitalization for the following reasons: IV ABX, possible amputation, vascular surgery consultation Total time managing care of this patient today: 35 minutes. Quality Stroke Does the patient have a stroke diagnosis?: No Reason for No Anti-thrombotic by Day Two: N/A - Med Ordered VTE Prior VTE?: No VTE Risk Level:: Medical - moderate - high VTE Device Contraindication: N/A - Device Ordered VTE Drug Contraindication: N/A - Med Ordered
[2025-04-15 11:22] LABS: Glucose, Whole Blood 192 mg/dL (60-115)
[2025-04-15 11:30] VITALS: BP 129/78; PULSE 69; RESP 18; TEMP 36.1; O2SAT 98
--- NOTE | 2025-04-15 11:43 | HE.PHANOTE ---
RE [facility] PATIENTS LEVEL CAME BACK THIS MORNING AT 8 MG/L. LEVEL IS SUBTHERAPEUTIC, PATIENTS SCR HAS IMPROVED. SCR IS 0.64 DOWN FROM 0.74 YESTERDAY. WILL CONTINUE WITH 1250 MG DOSING HOWEVER WILL INCREASE FREQUENCY TO GET PATIENT TO THERAPEUTIC LEVEL. 1250 MG Q8H, NEXT LEVEL TOMORROW AFTER 3 DOSES 04/16 @1000. PREDICTED AUC 490.
[2025-04-15 15:57] VITALS: BP 124/78; PULSE 80; RESP 18; TEMP 36.1; O2SAT 99
[2025-04-15 16:02] LABS: Glucose, Whole Blood 112 mg/dL (60-115)
--- NOTE | 2025-04-15 17:47 | PM.EVENT ---
Event Note Date of Service: 04/15/25 Event Note: Addiction consult placed for patient with history of AUD and cocaine use Patient seen by trailer sections assembler. Per H&P, patient has been abstaining from alcohol use and no risk for withdrawal Declines any intervention, including referrals Please see trailer sections assembler note for additional details Time Spent With Patient Time: Total time managing care of this patient today ____ minutes.
[2025-04-15 19:25] VITALS: BP 147/77; PULSE 79; RESP 18; TEMP 36.4; O2SAT 98
[2025-04-15 20:22] LABS: Glucose, Whole Blood 130 mg/dL (60-115)
[2025-04-16] VITALS (7 sets, daily range): BP systolic 118–143; BP diastolic 64–88; PULSE 67–88; RESP 14–18; TEMP 36–36.3; O2SAT 95–97; BMI 36.6
[2025-04-16 07:26] LABS: Glucose, Whole Blood 101 mg/dL (60-115)
--- NOTE | 2025-04-16 07:44 | PM.PNGS ---
Subjective Subjective Date of Service: 04/16/25 <Harley Dan PA-C - Last Filed: 04/16/25 07:57> 04/16/25 <Cheo Gillette MD - Last Filed: 04/16/25 11:48> Interval history: doing okay today. pain is somewhat improved since admission, continues to have some pain in the toes of the left foot. denies fever or chills <Harley Dan PA-C - Last Filed: 04/16/25 07:57> Physical Exam Vital Signs: Vital Signs: Last Vital Signs Temp 96.8 F 04/16/25 03:46 Pulse 70 04/16/25 03:46 Resp 18 04/16/25 03:46 BP 119/69 04/16/25 03:46 Pulse Ox 95 04/16/25 03:46 O2 Del Method Room Air 04/16/25 03:46 BMI result Body Mass Index 36.6 <Harley Dan PA-C - Last Filed: 04/16/25 07:57> Const: General: comfortable and no acute distress <Harley Dan PA-C - Last Filed: 04/16/25 07:57> Orientation/consciousness: patient oriented x3 <Harley Dan PA-C - Last Filed: 04/16/25 07:57> Resp: Effort & Inspection: normal respiratory effort and able to speak in complete sentences <Harley Dan PA-C - Last Filed: 04/16/25 07:57> Neuro: General: patient oriented x3 <Harley Dan PA-C - Last Filed: 04/16/25 07:57> Extrem: Other: LLE: improvement in erythema, 1+ edema extending to the left augustin. No open wounds or discharge noted. Mildly tender to palpation <Harley Dan PA-C - Last Filed: 04/16/25 07:57> Objective Data Active Medications Acetaminophen (Acetaminophen 325 Mg Tablet) 975 mg PO Q8H [facility] Last Admin: 04/16/25 06:12 Dose: 975 mg Documented By: ABIGAIL Albuterol/Ipratropium (Albuterol/Iprat 2.5/0.5mg 3 Ml Ampul.Neb) 3 ml INHALE Q4H PRN PRN Reason: Shortness of Breath/Wheezing Calcium Carbonate (Calcium Carbonate 750 Mg Tab.Chew) 750 mg PO Q4H PRN PRN Reason: Heartburn Dextrose (Dextrose 50 % 25 Gm/50 Ml Syringe) 25 gm IVPUSH Q15M PRN; Protocol PRN Reason: per Hypoglycemia Standing Ord. Enoxaparin Sodium (Enoxaparin Sodium 40 Mg/0.4 Ml Syringe) 40 mg SUBCUT Q24H [facility] Last Admin: 04/16/25 06:12 Dose: 40 mg Documented By: ABIGAIL Erythromycin (Erythromycin Base 0.5% Oph Oin 1 Gm Tube) 1 cm EYE-BOTH TID [facility] Last Admin: 04/15/25 21:47 Dose: 1 cm Documented By: ABIGAIL Glucose (Glucose Gel 15 Gm Gel..Gram.) 15 gm PO Q15M PRN; Protocol PRN Reason: per Hypoglycemia Standing Ord. Hydromorphone HCl (Hydromorphone Hcl 1 Mg/Ml Syringe) 1 mg IVPUSH Q3H PRN; Protocol PRN Reason: Pain, Severe (Pain Scale 7-10) Last Admin: 04/16/25 04:34 Dose: 1 mg Documented By: ABIGAIL Hydroxyzine HCl (Hydroxyzine Hcl 50 Mg Tablet) 50 mg PO TID [facility] Last Admin: 04/15/25 21:45 Dose: 50 mg Documented By: ABIGAIL Piperacillin Sod/Tazobactam (Sod 4.5 gm/ Sodium Chloride) 100 mls @ 200 mls/hr IV Q6H [facility] Last Infusion: 04/16/25 02:52 Dose: Infused Documented By: ABIGAIL Vancomycin HCl 1,250 mg/ (Sodium Chloride) 250 mls @ 166.667 mls/hr IV Q8H [facility] Last Infusion: 04/16/25 06:13 Dose: Infused Documented By: ABIGAIL Insulin Human Lispro (Insulin Lispro 100 Unit/Ml 3 Ml Vial) 0 unit SUBCUT QIDACHS [facility]; Protocol Last Admin: 04/16/25 07:28 Dose: Not Given Documented By: SUE Non-Admin Reason: No Insulin Coverage Magnesium Hydroxide (Milk Of Magnesia 30 Ml Oral.Susp) 30 ml PO DAILY PRN PRN Reason: Constipation Melatonin (Melatonin 3 Mg Tablet) 6 mg PO BEDTIME PRN PRN Reason: Insomnia Nicotine (Nicotine 14 Mg Patch.Td24) 14 mg TRANSDERMA DAILY [facility] Last Admin: 04/15/25 08:39 Dose: 14 mg Documented By: SUE Omeprazole (Omeprazole 40 Mg Capsule.) 40 mg PO BID@0630,1630 [facility] Last Admin: 04/16/25 06:12 Dose: 40 mg Documented By: ABIGAIL Ondansetron HCl (Ondansetron Hcl 4 Mg/2 Ml Vial) 4 mg IVPUSH Q8H PRN PRN Reason: Nausea and Vomiting Pharmacy Consult (Consult Rx Vancomycin Dosing) 1 each MISCELLANE DAILY PRN PRN Reason: Consult order Polyethylene Glycol (Polyethylene Glycol 3350 17 Gm Powd.Pack) 17 gm PO DAILY PRN PRN Reason: Constipation Pregabalin (Pregabalin 75 Mg Capsule) 225 mg PO BID [facility] Last Admin: 04/15/25 21:45 Dose: 225 mg Documented By: ABIGAIL Quetiapine Fumarate (Quetiapine Fumarate 300 Mg Tablet) 300 mg PO BEDTIME [facility] Last Admin: 04/15/25 21:47 Dose: 300 mg Documented By: ABIGAIL Senna (Sennosides 8.6 Mg Tablet) 17.2 mg PO BEDTIME [facility] Last Admin: 04/15/25 21:47 Dose: 17.2 mg Documented By: ABIGAIL Sertraline HCl (Sertraline Hcl 50 Mg Tablet) 150 mg PO DAILY [facility] Last Admin: 04/15/25 08:39 Dose: 150 mg Documented By: SUE Sodium Chloride (0.9 % Sodium Chloride Flush 3 Ml Syringe) 3 ml IVFLUSH QSHIFT [facility] Last Admin: 04/16/25 00:31 Dose: Not Given Documented By: ABIGAIL Non-Admin Reason: Previously Administered Vancomycin HCl (Vancomycin Hcl 125 Mg Capsule) 125 mg PO DAILY [facility] Last Admin: 04/15/25 08:39 Dose: 125 mg Documented By: SUE <Harley Dan PA-C - Last Filed: 04/16/25 07:57> Labs CBC & Chem 7: 04/16/25 10:13 04/16/25 10:13 <Harley Dan PA-C - Last Filed: 04/16/25 07:57> Labs: Laboratory Results - last 24 hr 04/15/25 04/15/25 04/15/25 09:51 11:10 15:55 POC Glucose 192 H 112 Random Vancomycin 8.0 L 04/15/25 04/16/25 20:18 07:14 POC Glucose 130 H 101 Random Vancomycin <Harley Dan PA-C - Last Filed: 04/16/25 07:57> Microbiology Microbiology Results: Microbiology 04/13/25 21:55 Blood Culture - Preliminary Blood - Venous No growth after 48 hours. 04/13/25 21:54 Blood Culture - Preliminary Blood - Venous No growth after 48 hours. <Harley Dan PA-C - Last Filed: 04/16/25 07:57> Procedures Date of Service Date of Service: 04/16/25 <Harley Dan PA-C - Last Filed: 04/16/25 07:57> 04/16/25 <Cheo Gillette MD - Last Filed: 04/16/25 11:48> Progress Note: A&P Assessment and plan (1) Osteomyelitis: Status: Acute <Harley Dan PA-C - Last Filed: 04/16/25 07:57> (2) Cellulitis of left foot: Status: Acute <Harley Dan PA-C - Last Filed: 04/16/25 07:57> Assessment and Plan: 40 year old male admitted for management of possible osteomyelitis of the left 2md and 3rd toes. Overall improving from admission, experiencing less pain, swelling and redness improving. The changes are evident on exam, some mild swelling extending to the middle of the augustin, erythema appears to be improving from previous notes. There are some small wounds on the dorsum of the remaining toes, that do not appear to be open or draining at this time. We were originally planning interention with amputation, patient had arterial US, showing possible diffuse atherosclerotic disease with areas of [id number] stenosis in the superficial femoral artery. due to concerns for wound healing after amputation, will consult vascular surgery for evaluation and recommendations prior to any surgical intervention. continue ABX, zosyn+vanco elevation of foot vascular consult pending <DENAE Malave Last Filed: 04/16/25 07:57> 40 year old male admitted for management of possible osteomyelitis of the left 2md and 3rd toes. Overall improving from admission, experiencing less pain, swelling and redness improving. The changes are evident on exam, some mild swelling extending to the middle of the augustin, erythema appears to be improving from previous notes. There are some small wounds on the dorsum of the remaining toes, that do not appear to be open or draining at this time. We were originally planning interention with amputation, patient had arterial US, showing possible diffuse atherosclerotic disease with areas of [id number] stenosis in the superficial femoral artery. due to concerns for wound healing after amputation, will consult vascular surgery for evaluation and recommendations prior to any surgical intervention. continue ABX, zosyn+vanco elevation of foot vascular consult pending Agree with the above assessment and plan. Please note Dr. Hernandez is currently on vacation and not available for consults until next week. <Cheo Gillette MD - Last Filed: 04/16/25 11:48> Time Spent With Patient Time: Total time managing care of this patient today ____ minutes. <Harley Dan PA-C - Last Filed: 04/16/25 07:57> Quality Stroke Does the patient have a stroke diagnosis?: No <Harley Dan PA-C - Last Filed: 04/16/25 07:57> Reason for No Anti-thrombotic by Day Two: N/A - Med Ordered <Harley Dan PA-C - Last Filed: 04/16/25 07:57> VTE Prior VTE?: No <Harley Dan PA-C - Last Filed: 04/16/25 07:57> VTE Risk Level:: Medical - moderate - high <Harley Dan PA-C - Last Filed: 04/16/25 07:57> VTE Device Contraindication: N/A - Device Ordered <Harley Dan PA-C - Last Filed: 04/16/25 07:57> VTE Drug Contraindication: N/A - Med Ordered <Harley Dan PA-C - Last Filed: 04/16/25 07:57>
[2025-04-16] MEDS: Nicotine 14 MG PATCH.TD24 TRANSDERMA (07:45)
[2025-04-16] MEDS: 0.9 % Sodium Chloride Flush 3 ML SYRINGE IVFLUSH ×2 (07:45→17:43)
[2025-04-16] MEDS: Erythromycin Base 0.5% Oph Oin 1 GM TUBE 1 CM EYE-BOTH ×3 (07:45→21:06)
[2025-04-16 08:28] LABS: HBS Num1 87.59 mIU/mL (0-7.99); HBc Num1 0.06 S/CO (0.00-0.79); HBsAGNum1 0.50 S/CO (0.00-0.99); Hepatitis B Surface Antigen Negative (Negative); ~HepC Num1 0.07 S/CO (0.00-0.79); ~Hepatitis B Surface Antibody REACTIVE (Nonreactive); ~Hepatitis C Antibody Nonreactive (Nonreactive)
[2025-04-16 08:50] LABS: HIV Num 1 0.04 S/CO (0.00-0.99)
[2025-04-16 10:22] LABS: Hematocrit 32.9 % (42.0-52.0); Hemoglobin 10.6 g/dl (14.0-18.0); Mean Corpuscular HGB Conc 32.2 g/dl (31.0-36.0); Mean Corpuscular Hemoglobin 27.7 pg (27.0-33.0); Mean Corpuscular Volume 85.9 fL (80.0-98.0); NRBC Abs Auto 0.000 X10*3/uL (0.0-0.012); NRBC Pct Auto 0.0 /100WBC (0.0-0.2); Platelet Count 186 X10*3/uL (160-400); Red Blood Count 3.83 X10*6/uL (4.60-5.80); White Blood Count 3.5 X10*3/uL (4.8-10.8)
[2025-04-16 10:38] LABS: Creatinine Clr Calc Pharmacy 196.7; Estimated Glomerular Filt Rate > 60
[2025-04-16 11:18] LABS: Glucose, Whole Blood 165 mg/dL (60-115)
--- NOTE | 2025-04-16 11:37 | MHC.CLN ---
NUTRITION DIET=DIABETIC 2000 KCALS. ADDING ENSURE MAX PROTEIN BID TO PROMOTE WOUND HEALING. SUPPLEMENT PROVIDES 300 KCALS, 60 G PROTEIN. HX CHRONIC STAGE 4 SACRAL WOUND. FOLLOW FOR PO INTAKE AND SKIN INTEGRITY. SEE CLINICAL NUTRITION ASSESSMENT 04/16/25.
--- NOTE | 2025-04-16 12:08 | MHC.CM.PN ---
PER MD ROUNDS, PLAN FOR AMP TOMORROW DCP: HOME, PT CANNOT HAVE VNA. VS STR TRANSPORT TBD BY DISPO -[facility]FT VS BLS
[2025-04-16 16:17] LABS: Glucose, Whole Blood 130 mg/dL (60-115)
--- NOTE | 2025-04-16 18:20 | P.PNIM_ITS ---
Subjective Subjective Date of Service: 04/16/25 Interval History: Swelling, erythema, and pain in left foot improved No fever or chills No N/V Wants to get 2nd toe amputation due to recurrent osteo Seen by general surgery who would first like vascular input due to concern for wound healing after amp Review of Systems Review of Systems: Yes all other systems are reviewed and are negative Physical Exam 2 Exam: Exam: General: AOx3, no acute distress Resp: CTA bilaterally CVS: S1, S2, RRR GI: +BS, NT, no distention Skin: Warm, dry Neuro: Cranial nerves II-XII grossly intact bilaterally. Motor grossly intact bilaterally Extremities: 1+ pitting edema from left foot to mid augustin. Mild erythema, partial 1st and 2nd toe amputations; right BKA Psych: Appropriate affect Vital Signs: Vital Signs: Last Vital Signs Temp 97.1 F 04/16/25 15:42 Pulse 83 04/16/25 15:42 Resp 18 04/16/25 15:42 BP 136/79 04/16/25 15:42 Pulse Ox 96 04/16/25 15:42 O2 Del Method Room Air 04/16/25 12:00 BMI result Body Mass Index 36.6 Objective Data Active Medications Acetaminophen (Acetaminophen 325 Mg Tablet) 975 mg PO Q8H [facility] Last Admin: 04/16/25 14:38 Dose: 975 mg Documented By: SUE Albuterol/Ipratropium (Albuterol/Iprat 2.5/0.5mg 3 Ml Ampul.Neb) 3 ml INHALE Q4H PRN PRN Reason: Shortness of Breath/Wheezing Calcium Carbonate (Calcium Carbonate 750 Mg Tab.Chew) 750 mg PO Q4H PRN PRN Reason: Heartburn Dextrose (Dextrose 50 % 25 Gm/50 Ml Syringe) 25 gm IVPUSH Q15M PRN; Protocol PRN Reason: per Hypoglycemia Standing Ord. Enoxaparin Sodium (Enoxaparin Sodium 40 Mg/0.4 Ml Syringe) 40 mg SUBCUT Q24H [facility] Last Admin: 04/16/25 06:12 Dose: 40 mg Documented By: ABIGAIL Erythromycin (Erythromycin Base 0.5% Oph Oin 1 Gm Tube) 1 cm EYE-BOTH TID [facility] Last Admin: 04/16/25 14:38 Dose: 1 cm Documented By: SUE Glucose (Glucose Gel 15 Gm Gel..Gram.) 15 gm PO Q15M PRN; Protocol PRN Reason: per Hypoglycemia Standing Ord. Hydromorphone HCl (Hydromorphone Hcl 1 Mg/Ml Syringe) 1 mg IVPUSH Q3H PRN; Protocol PRN Reason: Pain, Severe (Pain Scale 7-10) Last Admin: 04/16/25 17:43 Dose: 1 mg Documented By: SUE Hydroxyzine HCl (Hydroxyzine Hcl 50 Mg Tablet) 50 mg PO TID [facility] Last Admin: 04/16/25 14:38 Dose: 50 mg Documented By: SUE Piperacillin Sod/Tazobactam (Sod 4.5 gm/ Sodium Chloride) 100 mls @ 200 mls/hr IV Q6H [facility] Last Infusion: 04/16/25 15:11 Dose: Infused Documented By: SUE Vancomycin HCl 1,250 mg/ (Sodium Chloride) 250 mls @ 166.667 mls/hr IV Q8H [facility] Last Infusion: 04/16/25 13:10 Dose: Infused Documented By: SUE Insulin Human Lispro (Insulin Lispro 100 Unit/Ml 3 Ml Vial) 0 unit SUBCUT QIDACHS [facility]; Protocol Last Admin: 04/16/25 16:25 Dose: Not Given Documented By: SUE Non-Admin Reason: No Insulin Coverage Magnesium Hydroxide (Milk Of Magnesia 30 Ml Oral.Susp) 30 ml PO DAILY PRN PRN Reason: Constipation Melatonin (Melatonin 3 Mg Tablet) 6 mg PO BEDTIME PRN PRN Reason: Insomnia Nicotine (Nicotine 14 Mg Patch.Td24) 14 mg TRANSDERMA DAILY [facility] Last Admin: 04/16/25 07:45 Dose: 14 mg Documented By: SUE Omeprazole (Omeprazole 40 Mg Capsule.) 40 mg PO BID@0630,1630 [facility] Last Admin: 04/16/25 17:43 Dose: 40 mg Documented By: SUE Ondansetron HCl (Ondansetron Hcl 4 Mg/2 Ml Vial) 4 mg IVPUSH Q8H PRN PRN Reason: Nausea and Vomiting Pharmacy Consult (Consult Rx Vancomycin Dosing) 1 each MISCELLANE DAILY PRN PRN Reason: Consult order Polyethylene Glycol (Polyethylene Glycol 3350 17 Gm Powd.Pack) 17 gm PO DAILY PRN PRN Reason: Constipation Pregabalin (Pregabalin 75 Mg Capsule) 225 mg PO BID [facility] Last Admin: 04/16/25 07:44 Dose: 225 mg Documented By: SUE Quetiapine Fumarate (Quetiapine Fumarate 300 Mg Tablet) 300 mg PO BEDTIME [facility] Last Admin: 04/15/25 21:47 Dose: 300 mg Documented By: ABIGAIL Senna (Sennosides 8.6 Mg Tablet) 17.2 mg PO BEDTIME [facility] Last Admin: 04/15/25 21:47 Dose: 17.2 mg Documented By: ABIGAIL Sertraline HCl (Sertraline Hcl 50 Mg Tablet) 150 mg PO DAILY [facility] Last Admin: 04/16/25 07:45 Dose: 150 mg Documented By: SUE Sodium Chloride (0.9 % Sodium Chloride Flush 3 Ml Syringe) 3 ml IVFLUSH QSHIFT [facility] Last Admin: 04/16/25 17:43 Dose: 3 ml Documented By: USE Vancomycin HCl (Vancomycin Hcl 125 Mg Capsule) 125 mg PO DAILY [facility] Last Admin: 04/16/25 07:45 Dose: 125 mg Documented By: SUE Labs 04/16/25 10:13 04/16/25 10:13 Labs: Laboratory Results - last 24 hr 04/15/25 04/15/25 04/16/25 05:40 20:18 07:14 MCV MCH MCHC RDW Plt Count MPV Absolute Nucleated RBC Nucleated RBC % (auto) Estim Creat Clear Calc Estimated GFR POC Glucose 130 H 101 Random Vancomycin Hep Bs Antigen Negative Hep Bs Antibody REACTIVE Hep B Core Total Ab Nonreactive Hepatitis C Ab (EIA) Nonreactive HIV 1&2 Ab/P24 Ag 4thGn Nonreactive 04/16/25 04/16/25 04/16/25 10:13 11:13 16:07 MCV 85.9 MCH 27.7 MCHC 32.2 RDW 14.6 Plt Count 186 MPV 11.5 Absolute Nucleated RBC 0.000 Nucleated RBC % (auto) 0.0 Estim Creat Clear Calc 196.7 Estimated GFR > 60 POC Glucose 165 H 130 H Random Vancomycin 16.2 Hep Bs Antigen Hep Bs Antibody Hep B Core Total Ab Hepatitis C Ab (EIA) HIV 1&2 Ab/P24 Ag 4thGn Microbiology Microbiology Results: Microbiology 04/13/25 21:55 Blood Culture - Preliminary Blood - Venous No growth after 48 hours. 04/13/25 21:54 Blood Culture - Preliminary Blood - Venous No growth after 48 hours. Assessment and Plan (1) Cellulitis of left foot: Status: Acute (2) Osteomyelitis: Status: Acute Plan d3, 40yo M with DM and hx R BKA, PVD, chronic sacral wound, prior C. difficile, peripheral neuroatphy, PTSD, bipolar disorder, polysubstance abuse, cirrhosis, hx leaving AMA February 2025 after admission for GI bleed, presenting with sepsis due to infection of LLE LLE DM cellulitis/osteomyelitis of 2nd metatarsal head and 3rd proximal phalanx and IP joint with sepsis PAD - 04/14- vancomycin + piperacillin-tazobactam; d/c clindamycin 04/14-04/15 [given for 24h to shut off toxin production]; added prophylactic PO vancomycin due to hx C. difficile infection - Gen Surg consulted; considering amputation but needs vascular surgery consult first, though no one available until 04/23 - LLE artery duplex showing likely diffuse atherosclerotic disease with areas of [id number] stenosis in the superficial femoral artery - continue abx as above; likely will need a PICC while awaiting outpatient amputation chronic sacral wound - Wound Care consult pending conjunctivitis - erythromycin ointment hx GI bleed, signed out AMA February 2025 - H+H stable DM2, A1c 6.4, well-controlled - correction-dose lispro GERD - PPI cocaine abuse - Recovery Team consulted, declined intervention, HBV/HCV/HIV screen pending neuropathy - continue pregabalin bipolar disorder/PTSD - continue hydroxyzine, quetiapine, sertraline VTE ppx - enoxaparin dispo - TBD In my clinical judgment, the patient requires continued inpatient hospitalization for the following reasons: IV ABX, possible amputation, vascular surgery consultation Quality Stroke Does the patient have a stroke diagnosis?: No Reason for No Anti-thrombotic by Day Two: N/A - Med Ordered VTE Prior VTE?: No VTE Risk Level:: Medical - moderate - high VTE Device Contraindication: N/A - Device Ordered VTE Drug Contraindication: N/A - Med Ordered
[2025-04-16 20:51] LABS: Glucose, Whole Blood 109 mg/dL (60-115)
[2025-04-17 03:27] VITALS: BP 135/82; PULSE 75; RESP 16; TEMP 35.9; O2SAT 96
[2025-04-17 06:21] LABS: Creatinine Clr Calc Pharmacy 185.8; Estimated Glomerular Filt Rate > 60
[2025-04-17 07:30] VITALS: BP 132/83; PULSE 78; RESP 17; TEMP 36.2; O2SAT 97
[2025-04-17 07:33] LABS: Glucose, Whole Blood 108 mg/dL (60-115)
--- NOTE | 2025-04-17 07:55 | P.PNGS_ITS ---
Subjective Subjective Date of Service: 04/17/25 Interval history: no new complaints. pain improving, redness and swelling also improving. Denies fevers or chills Physical Exam 2 Vital Signs: Vital Signs: Last Vital Signs Temp 97.1 F 04/17/25 07:30 Pulse 78 04/17/25 07:30 Resp 17 04/17/25 07:30 BP 132/83 04/17/25 07:30 Pulse Ox 97 04/17/25 07:30 O2 Del Method Room Air 04/17/25 07:30 BMI result Body Mass Index 36.6 Const: General: comfortable and no acute distress O rientation/consciousness: patient oriented x3 Resp: Effort & Inspection: normal respiratory effort and able to speak in complete sentences Neuro: General: patient oriented x3 Extrem: Other: LLE: improvement in erythema, minimal edema extending to the level of the malleolous, improved from yesterday. No open wounds or discharge noted. Mildly tender to palpation General: Yes amputation noted (right BKA; partial toe amp 1st and 2nd) Objective Data Active Medications Acetaminophen (Acetaminophen 325 Mg Tablet) 975 mg PO Q8H [facility] Last Admin: 04/17/25 06:19 Dose: 975 mg Documented By: ABIGAIL Albuterol/Ipratropium (Albuterol/Iprat 2.5/0.5mg 3 Ml Ampul.Neb) 3 ml INHALE Q4H PRN PRN Reason: Shortness of Breath/Wheezing Calcium Carbonate (Calcium Carbonate 750 Mg Tab.Chew) 750 mg PO Q4H PRN PRN Reason: Heartburn Dextrose (Dextrose 50 % 25 Gm/50 Ml Syringe) 25 gm IVPUSH Q15M PRN; Protocol PRN Reason: per Hypoglycemia Standing Ord. Enoxaparin Sodium (Enoxaparin Sodium 40 Mg/0.4 Ml Syringe) 40 mg SUBCUT Q24H [facility] Last Admin: 04/17/25 06:20 Dose: 40 mg Documented By: ABIGAIL Erythromycin (Erythromycin Base 0.5% Oph Oin 1 Gm Tube) 1 cm EYE-BOTH TID [facility] Last Admin: 04/16/25 21:06 Dose: 1 cm Documented By: ABIGAIL Glucose (Glucose Gel 15 Gm Gel..Gram.) 15 gm PO Q15M PRN; Protocol PRN Reason: per Hypoglycemia Standing Ord. Hydromorphone HCl (Hydromorphone Hcl 1 Mg/Ml Syringe) 1 mg IVPUSH Q3H PRN; Protocol PRN Reason: Pain, Severe (Pain Scale 7-10) Last Admin: 04/17/25 06:26 Dose: 1 mg Documented By: ABIGAIL Hydroxyzine HCl (Hydroxyzine Hcl 50 Mg Tablet) 50 mg PO TID [facility] Last Admin: 04/16/25 21:05 Dose: 50 mg Documented By: ABIGAIL Piperacillin Sod/Tazobactam (Sod 4.5 gm/ Sodium Chloride) 100 mls @ 200 mls/hr IV Q6H [facility] Last Infusion: 04/17/25 02:59 Dose: Infused Documented By: ABIGAIL Vancomycin HCl 1,250 mg/ (Sodium Chloride) 250 mls @ 166.667 mls/hr IV Q8H [facility] Last Infusion: 04/17/25 04:38 Dose: Infused Documented By: ABIGAIL Insulin Human Lispro (Insulin Lispro 100 Unit/Ml 3 Ml Vial) 0 unit SUBCUT QIDACHS [facility]; Protocol Last Admin: 04/16/25 21:17 Dose: Not Given Documented By: ABIGAIL Non-Admin Reason: No Insulin Coverage Magnesium Hydroxide (Milk Of Magnesia 30 Ml Oral.Susp) 30 ml PO DAILY PRN PRN Reason: Constipation Melatonin (Melatonin 3 Mg Tablet) 6 mg PO BEDTIME PRN PRN Reason: Insomnia Nicotine (Nicotine 14 Mg Patch.Td24) 14 mg TRANSDERMA DAILY [facility] Last Admin: 04/16/25 07:45 Dose: 14 mg Documented By: SUE Omeprazole (Omeprazole 40 Mg Capsule.) 40 mg PO BID@0630,1630 [facility] Last Admin: 04/17/25 06:19 Dose: 40 mg Documented By: ABIGAIL Ondansetron HCl (Ondansetron Hcl 4 Mg/2 Ml Vial) 4 mg IVPUSH Q8H PRN PRN Reason: Nausea and Vomiting Pharmacy Consult (Consult Rx Vancomycin Dosing) 1 each MISCELLANE DAILY PRN PRN Reason: Consult order Polyethylene Glycol (Polyethylene Glycol 3350 17 Gm Powd.Pack) 17 gm PO DAILY PRN PRN Reason: Constipation Pregabalin (Pregabalin 75 Mg Capsule) 225 mg PO BID [facility] Last Admin: 04/16/25 21:05 Dose: 225 mg Documented By: ABIGAIL Quetiapine Fumarate (Quetiapine Fumarate 300 Mg Tablet) 300 mg PO BEDTIME [facility] Last Admin: 04/16/25 21:05 Dose: 300 mg Documented By: ABIGAIL Senna (Sennosides 8.6 Mg Tablet) 17.2 mg PO BEDTIME [facility] Last Admin: 04/16/25 21:06 Dose: Not Given Documented By: ABIGAIL Non-Admin Reason: Patient Refused Sertraline HCl (Sertraline Hcl 50 Mg Tablet) 150 mg PO DAILY [facility] Last Admin: 04/16/25 07:45 Dose: 150 mg Documented By: SUE Sodium Chloride (0.9 % Sodium Chloride Flush 3 Ml Syringe) 3 ml IVFLUSH QSHIFT [facility] Last Admin: 04/17/25 00:19 Dose: Not Given Documented By: ABIGAIL Non-Admin Reason: Previously Administered Vancomycin HCl (Vancomycin Hcl 125 Mg Capsule) 125 mg PO DAILY [facility] Last Admin: 04/16/25 07:45 Dose: 125 mg Documented By: SUE Labs 04/16/25 10:13 04/17/25 05:23 Labs: Laboratory Results - last 24 hr 04/15/25 04/16/25 04/16/25 05:40 10:13 11:13 MCV 85.9 MCH 27.7 MCHC 32.2 RDW 14.6 Plt Count 186 MPV 11.5 Absolute Nucleated RBC 0.000 Nucleated RBC % (auto) 0.0 Estim Creat Clear Calc 196.7 Estimated GFR > 60 POC Glucose 165 H Random Vancomycin 16.2 Hep Bs Antigen Negative Hep Bs Antibody REACTIVE Hep B Core Total Ab Nonreactive Hepatitis C Ab (EIA) Nonreactive HIV 1&2 Ab/P24 Ag 4thGn Nonreactive 04/16/25 04/16/25 04/17/25 16:07 20:45 05:23 MCV MCH MCHC RDW Plt Count MPV Absolute Nucleated RBC Nucleated RBC % (auto) Estim Creat Clear Calc 185.8 Estimated GFR > 60 POC Glucose 130 H 109 Random Vancomycin Hep Bs Antigen Hep Bs Antibody Hep B Core Total Ab Hepatitis C Ab (EIA) HIV 1&2 Ab/P24 Ag 4thGn 04/17/25 07:29 MCV MCH MCHC RDW Plt Count MPV Absolute Nucleated RBC Nucleated RBC % (auto) Estim Creat Clear Calc Estimated GFR POC Glucose 108 Random Vancomycin Hep Bs Antigen Hep Bs Antibody Hep B Core Total Ab Hepatitis C Ab (EIA) HIV 1&2 Ab/P24 Ag 4thGn Procedures Date of Service Date of Service: 04/17/25 Progress Note: A&P Assessment and plan (1) Osteomyelitis: Status: Acute (2) Cellulitis of left foot: Status: Acute Plan 40 year old male admitted for management of possible osteomyelitis of the left 2md and 3rd toes. Overall improving from admission, experiencing minimal pain, swelling and redness improving. The changes are evident on exam, some mild swelling extending to the middle of the augustin, erythema appears to be improving from previous notes. There are some small wounds on the dorsum of the remaining toes, that do not appear to be open or draining at this time. We were originally planning interention with amputation, patient had arterial US, showing possible diffuse atherosclerotic disease with areas of [id number] stenosis in the superficial femoral artery. due to concerns for wound healing after amputation, will consult vascular surgery for evaluation and recommendations prior to any surgical intervention. Vascular consult unavailable until after 04/22, discussed plan with hospitalist who is planning for PICC line insertion and d/c with antibiotics, follow up as outpatient for vascular evaluation. General surgery will sign off at this time, please reconsult as needed during admission. Continued management per medicine. continue ABX, [id number]+vanco elevation of foot vascular consult, away until 04/22. Time Spent With Patient Time: Total time managing care of this patient today ____ minutes. Quality Stroke Does the patient have a stroke diagnosis?: No Reason for No Anti-thrombotic by Day Two: N/A - Med Ordered VTE Prior VTE?: No VTE Risk Level:: Medical - moderate - high VTE Device Contraindication: N/A - Device Ordered VTE Drug Contraindication: N/A - Med Ordered
[2025-04-17] MEDS: Nicotine 14 MG PATCH.TD24 TRANSDERMA (08:43)
[2025-04-17] MEDS: Erythromycin Base 0.5% Oph Oin 1 GM TUBE 1 CM EYE-BOTH ×3 (08:44→22:17)
[2025-04-17] MEDS: 0.9 % Sodium Chloride Flush 3 ML SYRINGE IVFLUSH ×2 (08:44→16:05)
--- NOTE | 2025-04-17 10:47 | HE.PHANOTE ---
Re: Sean Good renal function, but fluctuating. Trough returned at 15.6. Dose increased to 1500mg q8h with predicted AUC 578, predicted trough 17.3. Next trough 04/18 @ 1000.
[2025-04-17 11:04] VITALS: BP 134/88; PULSE 82; RESP 17; TEMP 36.2; O2SAT 98
[2025-04-17 11:20] LABS: Glucose, Whole Blood 94 mg/dL (60-115)
--- NOTE | 2025-04-17 12:07 | P.PNIM_ITS ---
Subjective Subjective Date of Service: 04/17/25 Interval History: Pain well-controlled Swelling reduced Overall feeling well No fever or chills No numbness and tingling in extremities Review of Systems Review of Systems: Yes all other systems are reviewed and are negative Physical Exam 2 Exam: Exam: General: AOx3, no acute distress Resp: CTA bilaterally CVS: S1, S2, RRR GI: +BS, NT, no distention Skin: Warm, dry Neuro: Cranial nerves II-XII grossly intact bilaterally. Motor grossly intact bilaterally Extremities: Mild swelling and erythema of left lower extremity up to mid calf. Chronic ulcerations to 3rd and 4th digit, as well as electrical side of without discharge. As pictured below. Right BKA. Psych: Appropriate affect Vital Signs: Vital Signs: Last Vital Signs Temp 97.2 F 04/17/25 11:04 Pulse 82 04/17/25 11:04 Resp 17 04/17/25 11:04 BP 134/88 04/17/25 11:04 Pulse Ox 98 04/17/25 11:04 O2 Del Method Room Air 04/17/25 11:04 BMI result Body Mass Index 36.6 Objective Data Active Medications Acetaminophen (Acetaminophen 325 Mg Tablet) 975 mg PO Q8H [facility] Last Admin: 04/17/25 06:19 Dose: 975 mg Documented By: ABIGAIL Albuterol/Ipratropium (Albuterol/Iprat 2.5/0.5mg 3 Ml Ampul.Neb) 3 ml INHALE Q4H PRN PRN Reason: Shortness of Breath/Wheezing Calcium Carbonate (Calcium Carbonate 750 Mg Tab.Chew) 750 mg PO Q4H PRN PRN Reason: Heartburn Dextrose (Dextrose 50 % 25 Gm/50 Ml Syringe) 25 gm IVPUSH Q15M PRN; Protocol PRN Reason: per Hypoglycemia Standing Ord. Enoxaparin Sodium (Enoxaparin Sodium 40 Mg/0.4 Ml Syringe) 40 mg SUBCUT Q24H [facility] Last Admin: 04/17/25 06:20 Dose: 40 mg Documented By: ABIGAIL Erythromycin (Erythromycin Base 0.5% Oph Oin 1 Gm Tube) 1 cm EYE-BOTH TID [facility] Last Admin: 04/17/25 08:44 Dose: 1 cm Documented By: ROSA Glucose (Glucose Gel 15 Gm Gel..Gram.) 15 gm PO Q15M PRN; Protocol PRN Reason: per Hypoglycemia Standing Ord. Hydromorphone HCl (Hydromorphone Hcl 1 Mg/Ml Syringe) 1 mg IVPUSH Q3H PRN; Protocol PRN Reason: Pain, Severe (Pain Scale 7-10) Last Admin: 04/17/25 09:26 Dose: 1 mg Documented By: ROSA Hydroxyzine HCl (Hydroxyzine Hcl 50 Mg Tablet) 50 mg PO TID [facility] Last Admin: 04/17/25 08:43 Dose: 50 mg Documented By: ROSA Piperacillin Sod/Tazobactam (Sod 4.5 gm/ Sodium Chloride) 100 mls @ 200 mls/hr IV Q6H [facility] Last Infusion: 04/17/25 09:25 Dose: Infused Documented By: ROSA Vancomycin HCl 1,500 mg/ (Sodium Chloride) 500 mls @ 333.333 mls/hr IV Q8H [facility] Insulin Human Lispro (Insulin Lispro 100 Unit/Ml 3 Ml Vial) 0 unit SUBCUT QIDACHS [facility]; Protocol Last Admin: 04/17/25 11:22 Dose: Not Given Documented By: ROSA Non-Admin Reason: No Insulin Coverage Magnesium Hydroxide (Milk Of Magnesia 30 Ml Oral.Susp) 30 ml PO DAILY PRN PRN Reason: Constipation Melatonin (Melatonin 3 Mg Tablet) 6 mg PO BEDTIME PRN PRN Reason: Insomnia Nicotine (Nicotine 14 Mg Patch.Td24) 14 mg TRANSDERMA DAILY [facility] Last Admin: 04/17/25 08:43 Dose: 14 mg Documented By: ROSA Omeprazole (Omeprazole 40 Mg Capsule.) 40 mg PO BID@0630,1630 [facility] Last Admin: 04/17/25 06:19 Dose: 40 mg Documented By: ABIGAIL Ondansetron HCl (Ondansetron Hcl 4 Mg/2 Ml Vial) 4 mg IVPUSH Q8H PRN PRN Reason: Nausea and Vomiting Pharmacy Consult (Consult Rx Vancomycin Dosing) 1 each MISCELLANE DAILY PRN PRN Reason: Consult order Polyethylene Glycol (Polyethylene Glycol 3350 17 Gm Powd.Pack) 17 gm PO DAILY PRN PRN Reason: Constipation Pregabalin (Pregabalin 75 Mg Capsule) 225 mg PO BID [facility] Last Admin: 04/17/25 08:43 Dose: 225 mg Documented By: ROSA Quetiapine Fumarate (Quetiapine Fumarate 300 Mg Tablet) 300 mg PO BEDTIME [facility] Last Admin: 04/16/25 21:05 Dose: 300 mg Documented By: ABIGAIL Senna (Sennosides 8.6 Mg Tablet) 17.2 mg PO BEDTIME [facility] Last Admin: 04/16/25 21:06 Dose: Not Given Documented By: ABIGAIL Non-Admin Reason: Patient Refused Sertraline HCl (Sertraline Hcl 50 Mg Tablet) 150 mg PO DAILY [facility] Last Admin: 04/17/25 08:43 Dose: 150 mg Documented By: ROSA Sodium Chloride (0.9 % Sodium Chloride Flush 3 Ml Syringe) 3 ml IVFLUSH QSHIFT [facility] Last Admin: 04/17/25 08:44 Dose: 3 ml Documented By: ROSA Vancomycin HCl (Vancomycin Hcl 125 Mg Capsule) 125 mg PO DAILY [facility] Last Admin: 04/17/25 08:43 Dose: 125 mg Documented By: ROSA Labs 04/16/25 10:13 04/17/25 05:23 Labs: Laboratory Results - last 24 hr 04/16/25 04/16/25 04/17/25 16:07 20:45 05:23 Estim Creat Clear Calc 185.8 Estimated GFR > 60 POC Glucose 130 H 109 Random Vancomycin 04/17/25 04/17/25 04/17/25 07:29 10:11 11:06 Estim Creat Clear Calc Estimated GFR POC Glucose 108 94 Random Vancomycin 15.6 Assessment and Plan (1) Osteomyelitis: Status: Acute Plan d3, 40yo M with DM and hx R BKA, PVD, chronic sacral wound, prior C. difficile, peripheral neuroatphy, PTSD, bipolar disorder, polysubstance abuse, cirrhosis, hx leaving AMA February 2025 after admission for GI bleed, presenting with sepsis due to infection of LLE LLE DM cellulitis/osteomyelitis of 2nd metatarsal head and 3rd proximal phalanx and IP joint with sepsis PAD - 04/14- vancomycin + piperacillin-tazobactam; d/c clindamycin 04/14-04/15 [given for 24h to shut off toxin production]; added prophylactic PO vancomycin due to hx C. difficile infection - Gen Surg consulted; considering amputation as will be curative but needs vascular surgery consult first - do not have vascular surgery here until 04/23; offered pt option to transfer to a facility with vascular surgery, but pt declined transfer. Prefers to have PICC placed here and follow up with vascular surgery next week - LLE artery duplex showing likely diffuse atherosclerotic disease with areas of [id number] stenosis in the superficial femoral artery - continue abx as above; will need a PICC while awaiting outpatient vascular surgery evaluation for outpatient amputation; PICC ordered - Daptomycin x6 weeks per ID, end date 05/26 chronic sacral wound - Wound Care consult pending conjunctivitis - erythromycin ointment hx GI bleed, signed out AMA February 2025 - H+H stable Diet controlled DM2, A1c 6.4, well-controlled - correction-dose lispro - diabetic diet GERD - PPI cocaine abuse - Recovery Team consulted, declined intervention, HBV/HCV/HIV screen pending neuropathy - continue pregabalin bipolar disorder/PTSD - continue hydroxyzine, quetiapine, sertraline VTE ppx - enoxaparin dispo - TBD In my clinical judgment, the patient requires continued inpatient hospitalization for the following reasons: IV ABX and PICC line placement Quality Stroke Does the patient have a stroke diagnosis?: No Reason for No Anti-thrombotic by Day Two: N/A - Med Ordered VTE Prior VTE?: No VTE Risk Level:: Medical - moderate - high VTE Device Contraindication: N/A - Device Ordered VTE Drug Contraindication: N/A - Med Ordered
--- NOTE | 2025-04-17 14:15 | MHC.CM.PN ---
Per PA, patient will need 6 wks IV dapto. CM discussed w/ patient who declines SNF. Feels he can manage independently at home and reports he has done it in the past. No PCP for VNA, +utox for cocaine. Per Kiya at [facility], they can still accept and will provide SN. Awaiting PICC and teach w/ electrician control equipment. Likely dc tomorrow. Patient aware. CM will continue to follow.
[2025-04-17 16:00] VITALS: BP 132/94; PULSE 76; RESP 18; TEMP 36.1; O2SAT 96
--- NOTE | 2025-04-17 16:06 | P.PICC_ITS ---
PICC Line Insertion NPICC Insertion Diagnosis: Left Foot Osteo Indication: 6 weeks of Dapto Pertinent Labs: Reviewed Technique: Following informed consent including risks, benefits and alternatives and using sterile technique including cap and mask, sterile gown, glove and drape, the Right arm was prepped and draped in the usual sterile fashion of full barrier technique with [facility]. Following completion of [place] Protocol the skin and soft tissues were anesthetized with 1% Lidocaine plain. Using ultrasound guidance, Right Brachial vein access was obtained. Over an 0.018 wire through peel-away sheath, a 4Fr PowerPicc Solo PASV line was positioned. Catheter length is 48Cm internal length, 0Cm external length, for a total trimmed length of 49CM. The procedure was performed in Rm 272. Tip verification was performed by Cara Pineda with Sherlock 3CG. Tip located in SVC. Ultrasound was used to document vein patency and for needle entry. A formal ultrasound picture and cardiac rhythm strip was recorded. Vascular Cementing Bulk Material Operator has released the line for use and it is currently dressed with a StatLock, Tegaderm, and CHG disc. Verification has been performed for blood return and line patency. Arm Circumference: 34Cm Equipment: PowerPicc SOLO Catheter with Sherlock 3CG Tip Catheter Type: 4Fr PowerPicc Solo Lot #: [id number]
[2025-04-17] MEDS: 0.9 % Sodium Chloride Flush 10 ML SYRINGE IVFLUSH ×2 (16:15→22:36)
[2025-04-17 16:21] LABS: Glucose, Whole Blood 116 mg/dL (60-115)
[2025-04-17 19:06] VITALS: BP 139/70; PULSE 74; RESP 18; TEMP 36.4; O2SAT 96
[2025-04-17 20:04] LABS: Glucose, Whole Blood 154 mg/dL (60-115)
[2025-04-17 23:00] VITALS: BP 132/72; PULSE 72; RESP 18; TEMP 36.6; O2SAT 94
[2025-04-18 01:00] VITALS: RESP 16
[2025-04-18 03:07] VITALS: BP 132/83; PULSE 96; RESP 18; TEMP 36.7; O2SAT 96
[2025-04-18 06:30] LABS: Creatinine Clr Calc Pharmacy 188.4; Estimated Glomerular Filt Rate > 60
[2025-04-18 06:33] VITALS: BP 112/71; PULSE 85; RESP 16
[2025-04-18 07:10] VITALS: BP 116/58; PULSE 82; RESP 16; TEMP 36.1; O2SAT 97
[2025-04-18 07:20] LABS: Glucose, Whole Blood 89 mg/dL (60-115)
[2025-04-18] MEDS: 0.9 % Sodium Chloride Flush 10 ML SYRINGE IVFLUSH (08:36)
[2025-04-18] MEDS: 0.9 % Sodium Chloride Flush 3 ML SYRINGE IVFLUSH (08:36)
[2025-04-18] MEDS: oxyCODONE HCl Immed Release 5 MG TABLET PO (10:44)
--- NOTE | 2025-04-18 11:21 | MHC.CLN ---
F/U EXCELLENT PO INTAKE 100% X12 MEALS DIET RX:DIABETIC 2000 KCALS RECEIVING ENSURE MAX PROTEIN BID TO PROMOTE WOUND HEALING SUPPLEMENT PROVIDES 300 KCALS, 60 G PROTEIN HX CHRONIC STAGE 4 SACRAL WOUND-INTACT PER NSG MONITOR PO INTAKE RD TO FOLLOW WEEKLY
[2025-04-18 11:23] VITALS: BP 133/78; PULSE 71; RESP 16; TEMP 36; O2SAT 97
[2025-04-18 11:34] LABS: Glucose, Whole Blood 110 mg/dL (60-115)
--- NOTE | 2025-04-18 13:18 | MHC.CM.PN ---
[facility] to bedside - teach and orders complete. They have accepted for SN services. Medically cleared for dc home. Patient requesting Lyft ride home and states his neighbor will meet him at the car w/ his w/c and assist him into the home. RN aware.
--- NOTE | 2025-04-18 13:21 | HO.WOUND ---
Wound Consult: Initial 40yr old male admitted to [facility] on 04/14/25 - See progress notes and H&P for detailed history. Wound consult placed for sacrum. Patient agreeable to assessment and photo documentation. patient with chronic stage 4 pressure injury with history of multiple flaps. patient reports offloading gel cushion to home wheelchair. Etiology: sacrum with chronic stage 4 pressure injury Present on Admission Measurements: 1cm x 1.4cm x 0.5cm Wound Bed: moist yellow/white Drainage / Odor: scant serous, no odor Edges: ? attached Katie wound: ? No Induration, Fluctuance or Warmth noted, intact scar tissue Pain: none Goals of Treatment: ? offloading, moist wound healing right ischium - intact with pale pink scar tissue. left plantar and dorsal foot, scattered intact dry stable eschars. no drainage noted, patient being followed by vascular. leave open to air Recommendations: 1. Turn and Reposition every 2 hours and as needed for patient comfort. Use pillows or wedges to support off loading positions. 2. Off Load all bony prominences with use of pillows and heel boots if needed. Apply Preventative foams where needed. 3. Monitor for incontinence and moisture control, use barrier creams when needed for prevention and treatment. 4. Provide adequate and supplemental nutrition. 5. Order or Continue low air loss mattress. 6. When applicable maintain blood glucose levels per Providers order. Sacrum: offload pressure with Q2 hour turns and use of pillows. cleanse with saline, apply (gently pack) durafiber ag into wound cover with sacral bordered foam, cover surrounding scar tissue. change every other day and PRN Re-consult wound care Nurse for wound deterioration or wound changes.
[2025-04-18] MEDS: SODIUM CHLORIDE 0.9% IV (14:18)
[2025-04-18] MEDS: DAPTOMYCIN IV (14:18)
[2025-04-18 15:30] VITALS: BP 144/81; PULSE 78; RESP 18; TEMP 36.9; O2SAT 97
--- NOTE | 2025-04-18 15:42 | PM.DS ---
DS: Providers Provider Date of Service: 04/18/25 Date of admission: 04/14/25 03:01 Date of discharge: 04/18/25 Primary care physician: Unknown Physician Consults: 04/14/25 03:45 Consult to General Surgery Routine Consulting Provider: [facility] Reason for consultation: OM Left foot, with sepsis 04/14/25 03:46 Consult to Wound Care Routine Reason for consultation: sacral wound 04/14/25 07:44 Addiction Medicine Provider Routine Consulting Provider: Addiction Covering Reason for consultation: cocaine abuse Consult to Infectious Diseases Routine Consulting Provider: [facility] Reason for consultation: DM foot infection, possible osteo 04/15/25 10:59 Consult to Vascular Surgery Routine Consulting Provider: [facility] Reason for consultation: Suspect diffuse atherosclerotic disease with areas of qkuw-hv-ebcjkhvu jasmeet DS: Diagnosis Discharge Diagnosis (1) Osteomyelitis: Status: Acute DS: Summary Hospital Course Hospital Course: From admission HPI: Date of Service: 04/14/25 Attending physician on admission: Ethan Santos Chief Complaint: infection left foot and eye Patient is a 40-year-old male currently living alone and disabled/wheelchair-bound with history of right msfib-rzd-nmaf amputation secondary to diabetes, current NIDDM, PVD, chronic sacral wound with OM, CDIFF 12/2024, peripheral neuropathy, GIB, bipolar depression, PTSD, alcohol abuse last drink 01/31/2025, cocaine use, liver cirrhosis, tobacco dependence, right hip OA, obesity, and [place] syndrome, left adrenal mass was BIBA from home with concerns for infection in LLL/ foot. Pt states his pain is remarkable and the redness, swelling and pain started about 2 days prior. Pt denies any injury, skin exposure but does not wear shoes or slippers on feet. Pt also has chronic sacral wound and has not been able to establish contact with wound care clinic. Pt states he has a RN PARALE[place] he has known for 14 years but no nursing care in the home. Pt's father passed in December 2024 and since then, pt has not been able to meet his care needs noting his multiple comorbidities. Pt did state that he stopped drinking alcohol January 2025 but still uses cocaine once every 3 months. Toxicology screen pending. Pt did leave AMA with previous admission for GIB and did not complete the colonoscopy. Pt denies current hemataemisis or coughing up blood. H/H stable. Xrays done in ED note possible OM in LLL/foot. Pt started on Vancomycin and Zosyn. Pt started on sepsis protocol noting fever 101.7, tachycardia and elevated Lactic acid. LActic acid has normalized to 1.7. Pt started on ophthalmic ointment for conjunctiviits. Hospital course: Pt was admitted to the hospital for acute left foot osteomyelitis in the setting of peripheral vascular disease. Pt was treated with IV vancomycin and Zosyn. Was seen and evaluated by General surgery for possible amputation, but first requested vascular surgery evaluation out of concerns for postoperative healing. Vascular surgery not available during this week, so patient elected to have a PICC line placed and started on daptomycin 785 mg IV daily until can follow up with vascular surgery next week for possible elective 2nd and 3rd toe amputation. Patient's hospital stay overall uncomplicated, and he will be discharged home with VNA services. Rest of hospital stay and more details concerning acute care as listed below: LLE DM cellulitis/osteomyelitis of 2nd metatarsal head and 3rd proximal phalanx and IP joint with sepsis - in the setting of PAD - 04/14- vancomycin + piperacillin-tazobactam; d/c clindamycin 04/14-04/15 - Gen Surg consulted; considering amputation as will be curative but needs vascular surgery consult first - do not have vascular surgery here until 04/23; offered pt option to transfer to a facility with vascular surgery, but pt declined transfer. Prefers to have PICC placed here and follow up with vascular surgery next week - LLE artery duplex showing likely diffuse atherosclerotic disease with areas of zdzl-nr-qetiiyfa stenosis in the superficial femoral artery - Daptomycin 785mg IV daily x6 weeks per ID, end date 05/26 chronic sacral wound - Wound Care consulted: Sacrum: offload pressure with Q2 hour turns and use of pillows. cleanse with saline, apply (gently pack) durafiber ag into wound cover with sacral bordered foam, cover surrounding scar tissue. change every other day and PRN conjunctivitis - erythromycin ointment tid x4 more days hx GI bleed, signed out AMA February 2025 - H+H stable Diet controlled DM2, A1c 6.4, well-controlled - adhere to a diabetic diet GERD - PPI cocaine abuse - Recovery Team consulted, declined intervention, HBV/HCV/HIV screen negative neuropathy - continue pregabalin bipolar disorder/PTSD - continue hydroxyzine, quetiapine, sertraline Time Attestation Discharge Coordination Time (in mins): 35 Quality: Safe Use of Opioids Does Pt have an Active Cancer Diagnosis on the Problem List?: No Quality: Stroke Does the patient have a stroke diagnosis?: No Physical Exam Exam: Exam: General: AOx3, no acute distress Resp: CTA bilaterally CVS: S1, S2, RRR GI: +BS, NT, no distention Skin: Warm, dry Neuro: Cranial nerves II-XII grossly intact bilaterally. Motor grossly intact bilaterally Extremities: Mild swelling of left lower extremity up to mid calf. Erythema resovled. Chronic ulcerations to 3rd and 4th digit, as well as electrical side of without discharge. Right BKA. Psych: Appropriate affect Vital Signs: Vital Signs: Last Vital Signs Temp 98.4 F 04/18/25 15:30 Pulse 78 04/18/25 15:30 Resp 18 04/18/25 15:30 BP 144/81 H 04/18/25 15:30 Pulse Ox 97 04/18/25 15:30 O2 Del Method Room Air 04/18/25 15:30 BMI result Body Mass Index 36.6 DS: Data Data Completed and Pending Completed studies during hospitalization [Text1]: Procedures Detoxification Services for Substance Abuse Treatment (02/18/25) Excision of Stomach, Pylorus, Via Natural or Artificial Opening Endoscopic, Diagnostic (03/08/25) Labs on day of discharge: Laboratory Results - last 24 hr 04/17/25 04/17/25 04/18/25 16:15 19:56 05:40 Creatinine 0.71 Estim Creat Clear Calc 188.4 Estimated GFR > 60 POC Glucose 116 H 154 H Vancomycin Trough 04/18/25 04/18/25 04/18/25 07:15 09:54 11:28 Creatinine Estim Creat Clear Calc Estimated GFR POC Glucose 89 110 Vancomycin Trough 21.2 H Preliminary micro results at discharge 04/13/25 21:55 Blood Culture - Preliminary Blood - Venous No growth after 48 hours. 04/13/25 21:54 Blood Culture - Preliminary Blood - Venous No growth after 48 hours. Discharge Plan Discharge Anticipated Discharge Date/Time: 04/18/25 15:23 Patient Disposition: Home Health Service Discharge Diagnosis: Acute left foot osteomyelitis Referrals: [facility] [Other] - 1 Week Referral Note: [facility] will provide your antibiotic and weekly nursing. As discussed, please answer calls from nursing and be present for appointments. Fei Hernandez MD [Physician, Vascular Surgery] - 1 Week Referral Note: Left lower extremity atherosclerotic disease; acute left foot osteomyelitis, will likely need elective 2nd and 3rd left toe amputation Physician,Unknown J [Primary Care Provider, Medical] - 1 Week Discharge Medications: New oxycodone 5 mg tablet 5 mg PO Q8H PRN (Reason: pain, severe) Qty: 9 0RF Rx Instructions: Partial Fill upon patient request. Take one tablet up to three times a day for severe pain. erythromycin 5 mg/gram (0.5 %) ointment 1 appl ophthalmic (eye) Q8H Qty: 3.5 0RF Rx Instructions: Apply 1cm in both eyes three times a day for the next 3 days, ending on 04/21 loperamide [Anti-Diarrheal (loperamide)] 2 mg capsule 2 mg PO Q6H PRN (Reason: diarrhea) Qty: 30 0RF Continued quetiapine 300 mg tablet 300 mg PO BEDTIME sertraline 100 mg tablet 150 mg PO DAILY hydroxyzine HCl 50 mg tablet 50 mg PO TID omeprazole 40 mg capsule,delayed release(DR/EC) 40 mg PO BID@0630,1630 pregabalin 225 mg capsule 225 mg PO BID Discharge Orders: Discharge Order (Routine); Ordered 04/18/25 Ordered By: Barrington Fish Activity on Discharge: As tolerated Stand Alone Forms: Patient Portal Discharge page Print Language: [place] Care Plan Goals: See below Health Concerns: Left foot osteomyelitis Peripheral artery disease Femoral artery stenosis Conjunctivitis Plan of Treatment: You were admitted to the hospital for acute left foot osteomyelitis and Will treat with IV antibiotics. You were seen and evaluated by ID and General surgery, and initially elected to undergo amputation as curative treatment. Left lower extremity arterial duplex showed diffuse atherosclerotic disease and General surgery requested vascular surgery input prior to undergoing amputation. Vascular surgery was not available this week and you were offered the chance to be transferred to another facility with vascular Services, but you declined. You had PICC line inserted for 6 weeks of daptomycin IV. You will need to follow up with Dr. Hernandez in vascular surgery next week for evaluation and setting up outpatient left 2nd and 3rd toe amputation. -- for acute left foot osteomyelitis, you will be treated with daptomycin IV 785 mg daily -- follow up with Dr. Hernandez in vascular surgery next week for evaluation of peripheral atherosclerosis and setting up elective left 2nd and 3rd toe amputation -- for conjunctivitis, apply 1 cm of ointment 3 times a day in both eyes for the next 4 days, ending on 04/21 -- continue all of your other home medications Assessment: See discharge summary
--- NOTE | 2025-04-19 07:22 | P.CDIM_ITS ---
PROVIDER RESPONSE TEXT: To clarify, the appropriate diagnosis supported by the clinical indicators: Pressure (decubitus) ulcer: Chronic stage 4 QUERY TEXT: PHYSICIAN'S DOCUMENTATION REQUEST Date of Query: 04/17/2025 09:59 AM EDT Patient Name: CHATO GONGORA Admit Date: 04/14/2025 Dear Barrington BAH, A review of the medical record indicates additional documentation may be needed. Please review below and update the documentation accordingly. Clinical Indicators: chronic sacral wound wound consult pending wheelchair bound Sacrum is clean, dry without redness or warmth Based on the above, could you please provide further information regarding the ulcer/wound: Diabetic ulcer Please specify the location and laterality of the ulcer/wound Venous stasis ulcer Please specify the location and laterality of the ulcer/wound Arterial (ischemic) ulcer Please specify the location and laterality of the ulcer/wound Pressure (decubitus) ulcer Please include the stage of the ulcer and specify the location and laterality of the ulcer/wound Traumatic wound Please specify the location and laterality of the ulcer/wound Non-healing surgical wound Please specify the location and laterality of the ulcer/wound Other (explain) Clinically unable to determine (explain) Thank you, Stephany Arechiga RN Use of terms such as suspected, likely, concern for, or probable (associated with a specific diagnosis that is being evaluated, monitored, or treated as if it exists) are acceptable and can be coded in the inpatient setting, when documented at the time of discharge. Please use your independent medical judgment in providing your response. THIS QUERY IS PART OF THE PERMANENT MEDICAL RECORD
== END 2025-04-18 16:04 | disposition home health service (06) | DRG 871 ==
LOC: HO.ED 04-14 03:20 → HO.EDOVER 04-14 03:30 → HO.S3 04-14 06:50
PROVIDERS: Family Medicine; Nurse Practitioner Family; Physician Assistant Medical; Psychiatry & Neurology Psychiatry; Admitting Provider Student in an Organized Health Care Education/Training Program; Emergency Provider Emergency Medicine; Visit Provider Student in an Organized Health Care Education/Training Program
DX: A41.9 Sepsis, unspecified organism (principal); L89.154 Pressure ulcer of sacral region, stage 4; L03.116 Cellulitis of left lower limb; M86.672 Other chronic osteomyelitis, left ankle and foot; M00.9 Pyogenic arthritis, unspecified; G61.0 Guillain-Barre syndrome; E11.51 Type 2 diabetes mellitus with diabetic peripheral angiopathy without gangrene; E11.69 Type 2 diabetes mellitus with other specified complication; F17.210 Nicotine dependence, cigarettes, uncomplicated; Z71.6 Tobacco abuse counseling; F31.9 Bipolar disorder, unspecified; F43.10 Post-traumatic stress disorder, unspecified; H10.9 Unspecified conjunctivitis; L97.529 Non-pressure chronic ulcer of other part of left foot with unspecified severity; I70.245 Atherosclerosis of native arteries of left leg with ulceration of other part of foot; E11.42 Type 2 diabetes mellitus with diabetic polyneuropathy; K21.9 Gastro-esophageal reflux disease without esophagitis; F10.90 Alcohol use, unspecified, uncomplicated; F14.10 Cocaine abuse, uncomplicated; E11.628 Type 2 diabetes mellitus with other skin complications; K74.60 Unspecified cirrhosis of liver; Z20.822 Contact with and (suspected) exposure to COVID-19; Z99.3 Dependence on wheelchair; Z79.899 Other long term (current) drug therapy
CPT/HCPCS: 36415; 36573; 73590; 73630; 73720; 73723; 80048; 80053; 80202; 80307; 81001; 81003; 82565; 82947; 83036; 83605; 85025; 85027; 85652; 86140; 86704; 86706; 86803; 87040; 87340; 87389; 87637; 93926; 99285; 99499; A9585; C1751; J0131; J0696; J0736; J0878; J1171; J1650; J2543; J3374; S9485

== ENCOUNTER → 2025-04-13 22:22 | Outpatient (BNV) | payer MEDICARE, MEDICAID, SELFPAY | PROVIDERS: Visit Provider Radiology Neuroradiology | DX: M86.172 Other acute osteomyelitis, left ankle and foot (principal) | CPT/HCPCS: 73590; 73630 ==

== ENCOUNTER 2025-04-14 03:01 | Outpatient (BNV) | payer MEDICARE, MEDICAID, SELFPAY | END 2025-04-15 08:53 | PROVIDERS: Admitting Provider Student in an Organized Health Care Education/Training Program; Emergency Provider Emergency Medicine; Visit Provider Radiology Diagnostic Radiology | DX: I70.202 Unspecified atherosclerosis of native arteries of extremities, left leg (principal); M86.172 Other acute osteomyelitis, left ankle and foot | CPT/HCPCS: 93926 ==

== ENCOUNTER 2025-04-14 03:01 | Outpatient (BNV) | payer MEDICARE, MEDICAID, SELFPAY | END 2025-04-14 12:33 | PROVIDERS: Admitting Provider Student in an Organized Health Care Education/Training Program; Emergency Provider Emergency Medicine; Visit Provider Radiology Diagnostic Radiology | DX: M86.172 Other acute osteomyelitis, left ankle and foot (principal); M25.572 Pain in left ankle and joints of left foot; R60.9 Edema, unspecified | CPT/HCPCS: 73720; 73723 ==

== ENCOUNTER → 2025-04-14 03:01 | Outpatient (BNV) | payer MEDICARE, MEDICAID, SELFPAY | PROVIDERS: Admitting Provider Student in an Organized Health Care Education/Training Program; Emergency Provider Emergency Medicine; Visit Provider Nurse Practitioner Family | DX: M86.9 Osteomyelitis, unspecified (principal); H10.30 Unspecified acute conjunctivitis, unspecified eye; L03.116 Cellulitis of left lower limb | CPT/HCPCS: 99223; 99232; 99233; 99499 ==

== ENCOUNTER → 2025-04-14 03:01 | Outpatient (BNV) | payer MEDICARE, MEDICAID, SELFPAY | PROVIDERS: Admitting Provider Student in an Organized Health Care Education/Training Program; Emergency Provider Emergency Medicine; Visit Provider Surgery | DX: M86.9 Osteomyelitis, unspecified (principal); L03.116 Cellulitis of left lower limb | CPT/HCPCS: 99222; 99232 ==

== ENCOUNTER → 2025-04-14 03:01 | Outpatient (BNV) | payer MEDICARE, MEDICAID, SELFPAY | PROVIDERS: Admitting Provider Student in an Organized Health Care Education/Training Program; Emergency Provider Emergency Medicine; Visit Provider Internal Medicine | DX: M86.9 Osteomyelitis, unspecified (principal); M00.9 Pyogenic arthritis, unspecified; A41.9 Sepsis, unspecified organism | CPT/HCPCS: 99222 ==

== ENCOUNTER 2025-04-21 10:22 | Emergency (ER) | payer MEDICARE, MEDICAID, SELFPAY ==
--- NOTE | ~2025-04-21 | CT_ITS ---
CLINICAL HISTORY: Left lower quadrant abdominal pain and diarrhea CT abdomen and pelvis without contrast Comparison: CT - CT ABDOMEN PELVIS W IV CON - 04/01/25 14:[address]/AK/SR - CT ABDOMEN PELVIS WITHOUT THEN WITH IV CONTRAST - 03/08/25 09:58 EDT Findings: No consolidation or effusion. Cholelithiasis. No evidence of acute cholecystitis. Nodular hepatic contour without focal mass. Stable left adrenal nodules demonstrating Hounsfield units less than 10, indicating adenomata. Solid organs are otherwise within normal limits. No bowel obstruction, pneumoperitoneum, or pneumatosis. Pelvic contents unremarkable. Normal appendix. The bones are intact. Soft tissue density within the bilateral posterior gluteal soft tissues overlying the ischia, as before. Posterior midline soft tissue defect overlying the sacrococcygeal junction extending to the posterior cortex of the sacrococcygeal junction with mild associated cortical irregularity. Right hip arthroplasty. Healing right posterior 11th rib fracture. IMPRESSION: 1. Findings which could indicate mild osteomyelitis at the sacrococcygeal junction unchanged compared to 04/01/2025. 2. Bilateral ischial wounds. 3. Cirrhosis. 4. Cholelithiasis. 5. Stable left adrenal adenomata. This document has been electronically signed by: Jd Box MD on 04/21/2025 14:11:59
--- NOTE | ~2025-04-21 | XR_ITS ---
CLINICAL HISTORY: Abdominal pain 1 view chest x-ray Comparison: CR - XR CHEST 2V - 11/15/24 00:57 EDT Findings: No consolidation or effusion. Heart size is normal. No acute fracture. IMPRESSION: 1. No acute findings. This document has been electronically signed by: Jd Box MD on 04/21/2025 13:39:25
[2025-04-21 10:28] VITALS: BP 154/92; BP 154/96; PULSE 72; PULSE 79; RESP 18; TEMP 36.4; O2SAT 98; O2SAT 99; BMI 34.3
--- OUTSIDE RECORDS SUMMARY | 2025-04-21 10:51 | XMS_ITS | Clinical Summary ---
Author Organization [facility] Address [address] [place] [address] Care Team Providers Care Nutter Up Name Role Phone Rosa Sepulveda NP Primary Care Provider +1- [phone] Allergies Active Allergy Reactions Criticality Noted Date Comments Baclofen Hives Medium 06/20/2019 Medications oxyCODONE (ROXICODONE) 5 MG immediate release tablet Take 5 mg by mouth 3 (three) times a day. 0 05/08/2019 Active OMEprazole (PriLOSEC) 20 MG capsule Take 20 mg by mouth every morning before breakfast. 5 05/09/[address] 500 MG EC tablet Take 500 mg by mouth 2 (two) times a day with meals. 5 05/09/2019 Active venlafaxine (EFFEXOR-XR) 75 MG 24 hr capsule TAKE 1 CAPSULE BY MOUTH EVERY DAY IN THE MORNING 5 04/12/2019 Active tamsulosin (FLOMAX) 0.4 MG capsule 0.8 mg daily. 3 03/03/2019 Active loratadine (CLARITIN) 10 MG tablet Take 10 mg by mouth daily. 11 04/06/2019 Active ipratropium (ATROVENT) 0.03 % nasal spray 2 sprays 2 (two) times a day as needed. 5 02/16/2019 Active gabapentin (NEURONTIN) 300 MG capsule Take 300 mg by mouth 3 (three) times a day. 1 05/09/2019 Active fentaNYL (DURAGESIC) 12 mcg/hr patch APPLY 1 PATCH ON THE SKIN EVERY 72 HOURS 0 05/01/2019 Active fentaNYL (DURAGESIC) 25 mcg/hr patch APPLY 1 PATCH TO THE SKIN EVERY 72 HOURS 0 05/01/2019 Active divalproex er (DEPAKOTE ER) 500 MG 24 hr tablet Take 1,500 mg by mouth nightly. 5 02/12/2019 Active clonazePAM (KlonoPIN) 0.125 MG tablet TAKE 1 TABLET BY MOUTH THREE TIMES A DAY 1 04/21/2019 Active amitriptyline (ELAVIL) 25 MG tablet Take 25 mg by mouth nightly as needed. for sleep 5 04/18/2019 Active clonazePAM (KlonoPIN) 1 MG tablet Take 1 mg by mouth 3 (three) times a day as needed. Active Multiple Vitamin (MULTIVITAMIN) capsule Take 1 capsule by mouth daily. Active Cholecalciferol (VITAMIN D3) 5000 units Cap Take 1 tablet by mouth daily. Active lisinopril (PRINIVIL,ZeSTR IL) 2.5 MG tablet Take 2.5 mg by mouth daily. Active albuterol (PROVENTIL HFA; VENTOLIN HFA) 108 (90 Base) MCG/ACT inhaler Inhale 2 puffs 4 times daily (every 6 hours) as needed for wheezing. Active enoxaparin (LOVENOX) 40 MG/0.4ML injectionIndica tions:Wound of sacral region, initial encounter Inject 0.4 mL (40 mg total) under the skin daily. 14 Syringe 06/27/2019 Active Active Problems Problem Noted Date Diagnosed Date Pressure injury of right ischium, stage 3 2018 Overview (07/03/2019): Present on admission Neuropathy 05/18/2019 Sacral wound 05/18/2019 Anxiety 05/18/2019 Depression 05/18/2019 Family History Medical History Relation Name Comments Diabetes Father Heart disease Father Hyperlipidemia Father Ovarian cancer Maternal Grandmother Breast cancer Mother Ovarian cancer Mother Relation Name Status Comments Brother Alive Father Alive Maternal Grandfather Maternal Grandmother Mother Paternal Grandfather Alive Paternal Grandmother Social History Tobacco Use Types Packs/Day Years [...] on file Sexual Orientation Not on file Last Filed Vital Signs Vital Sign Reading Time Taken Comments Blood Pressure 125/75 02/29/2020 9:42 AM EDT Pulse 106 07/11/2019 1:50 PM EST Temperature 36.8 C (98.2 F) 07/11/2019 1:50 PM EST Respiratory Rate 18 07/11/2019 1:50 PM EST Oxygen Saturation 94% 07/11/2019 1:50 PM EST Inhaled Oxygen Concentration - - Weight 118 kg (260 lb) 02/29/2020 9:42 AM EDT Height 188 cm (6' 2 ) 02/29/2020 9:42 AM EDT Body Mass Index 33.38 02/29/2020 9:42 AM EDT Plan of Treatment Health Maintenance Due Date Last Done Comments Hepatitis C Virus Screening 1983 HIV Screening 02/01/1996 DTaP/Tdap/Td Vaccines (1 - Tdap) 2002 Hepatitis B Vaccines (1 of 3 - 19+ 3-dose series) 01/21 Pneumococcal Vaccine: Pediat jesse (0-5 Years) and At-Risk Patients (6 to 49 Years) (1 of 2 - PCV) 2002 HPV Vaccines (1 - 3-dose SCDM series) 2010 COVID-19 Vaccine (1 - 2023- season) 2024 Influenza Vaccine 03/23/2025 Insurance MEDICARE PART A & B MEDICAID OUT OF STATE [facility] [place] [address] Advance Directives * Full Code (Latest Code Status on File) Date Activated Date Inactivated Comments 06/19/2019 11:45 AM 07/11/2019 11:50 AM Care Teams Nutter Up Relationship Specialty Start Date End Date Rosa Sepulveda NP [address] [place] [address] PCP - General 05/09/19
--- OUTSIDE RECORDS SUMMARY | 2025-04-21 10:51 | XMS_ITS | Encounter Summary ---
Author Organization [facility] Address [address] [place] [address] Care Team Providers Care Freelance Director Name Role Phone Rosa Sepulveda NP Primary Care Provider +1- [phone] Encounter Details Date Type Department Care Team (Late st Contact Info) Description 07/08/2020 [facility] Plastic & Reconstructive Surgery [address] [place] [address] David Corrales MD [address] [place] [address] Social History Tobacco Use Types Packs/Day Years [...] as of this encounter Progress Notes * aDvid Corrales MD - 07/08/2020 7:46 PM EST [...] on filedocumented in this encounter Care Teams Freelance Director Relationship Specialty Start Date End Date Rosa Sepulveda NP [address] [place] [address] PCP - General 05/09/19 documented as of this encounter
--- OUTSIDE RECORDS SUMMARY | 2025-04-21 10:51 | XMS_ITS | Encounter Summary ---
Author Organization [facility] Address [address] [place] [address] Care Team Providers Care Firer Automatic Stoker Name Role Phone Rosa Sepulveda NP Primary Care Provider +1- [phone] Encounter Details Date Type Department Care Team ([facility] st Contact Info) Description 07/23/2020 Scanned Document [facility] Plastic & Reconstructive Surgery [address] [place] [phone] David Corrales MD [address] [place] [address] Social History Tobacco Use Types Packs/Day Years [...] on file Sexual Orientation Not on file COVID-19 Exposure Response Date Recorded In the last month, have you been in contact with someone who was confirmed or suspected to have Coronavirus / COVID-19? No / Unsure 07/22/2020 11:09 AM EST documented as of this encounter Plan of Treatment Not on file documented as of this encounter Visit Diagnoses Not on filedocumented in this encounter Care Teams Firer Automatic Stoker Relationship Specialty Start Date End Date Rosa Sepulveda NP [address] [place] [address] PCP - General 05/09/19 documented as of this encounter
--- OUTSIDE RECORDS SUMMARY | 2025-04-21 10:52 | XMS_ITS | Encounter Summary ---
Author Organization [facility] Address [address] [place] [address] Care Team Providers Care Steward/Stewardess Third Name Role Phone Rosa Sepulveda NP Primary Care Provider +1- [phone] Encounter Details Date Type Department Care Team (Late st Contact Info) Description 07/17/2019 Scanned Document [facility] Plastic & Reconstructive Surgery [address] [place] [phone] David Corrales MD [address] [place] [address] Social History Tobacco Use Types Packs/Day Years [...] on file documented as of this encounter Plan of Treatment Not on file documented as of this encounter Visit Diagnoses Not on filedocumented in this encounter Additional Health Concerns Infection Onset Date Last Indicated Resolved Time 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
--- OUTSIDE RECORDS SUMMARY | 2025-04-21 10:52 | XMS_ITS | Encounter Summary ---
Author Organization [facility] Address [address] [place] [address] Care Team Providers Care Level Vial Setter Name Role Phone Rosa Sepulveda RESEARCH CLERK Primary Care Provider +1- [phone] Encounter Details Date Type Department Care Team (Late st Contact Info) Description 04/11/2020 Scanned Document [facility] Plastic & Reconstructive Surgery [address] [place] [address] David Corrales MD [address] [place] [address] Social History Tobacco Use Types Packs/Day Years [...] on filedocumented in this encounter Care Teams Level Vial Setter Relationship Specialty Start Date End Date Rosa Sepulveda NP [address] [place] [address] PCP - General 05/09/19 documented as of this encounter
--- OUTSIDE RECORDS SUMMARY | 2025-04-21 10:52 | XMS_ITS | Encounter Summary ---
Author Organization [facility] Address [address] [place] [address] Care Team Providers Care Digital Marketing Assistant Name Role Phone Rosa Sepulveda POTATO CHIP FRYER Primary Care Provider +1- [phone] Encounter Details Date Type Department Care Team (Late st Contact Info) Description 04/11/2020 Scanned Document [facility] Plastic & Reconstructive Surgery [address] [place] [address] David Corrales MD [address] [place] [address] Social History Tobacco Use Types Packs/Day Years [...] on filedocumented in this encounter Care Teams Digital Marketing Assistant Relationship Specialty Start Date End Date Rosa Sepulveda NP [address] [place] [address] PCP - General 05/09/19 documented as of this encounter
--- OUTSIDE RECORDS SUMMARY | 2025-04-21 10:53 | XMS_ITS | Clinical Summary ---
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 05/14/20 22 Active senna-docusate (PERICOLACE) 8.6-50 mg per tablet Take 1 Tablet by mouth daily. Active glipiZIDE (GLUCOTROL) 5 mg tablet Take 1 tablet (5 mg total) by mouth 1 (one) time each day. 02/02/20 25 Active pregabalin (LYRICA) 225 mg capsule Take 1 capsule (225 mg total) by mouth 2 (two) times a day. 02/02/20 25 Active QUEtiapine (SEROquel) 300 mg tablet Take 1 tablet (300 mg total) by mouth at bedtime. 12/22/19 25 Active escitalopram (LEXAPRO) 10 mg tablet Take 1 tablet (10 mg total) by mouth 1 (one) time each day. 02/02/20 25 Active lamoTRIgine (LaMICtal) 25 mg tablet Take 1 tablet (25 mg total) by mouth 1 (one) time each day. 30 each 07/07/20 25 Active folic acid (FOLVITE) 1 mg tablet Take 1 tablet (1 mg total) by mouth 1 (one) time each day. 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 Encounters Date Type Department Care Team Description 02/21/2025 10:38 PM EDT - 02/25/2025 10:49 AM EDT Hospital Encounter [facility] [address] [place] [phone] Salvador Oleary MD Jones, Christopher, MD Rasul, Yar M, MD Pressure injury of skin of sacral region, unspecified injury stage (Primary Dx); Failure to thrive in adult; Falls; Alcohol withdrawal syndrome with complication ([facility] V24, [facility] V28) Discharge Disposition: Home-Health Care [facility] [place] Last 3 Months Surgical History Surgery Date Site/Laterality Comments OTHER SURGICAL HISTORY PROCEDURE: OR ANESTHESIA OPEN HIP JOINT PROCEDURE NOS Medical History Medical History Date Comments Anxiety DX:Anxiety PTSD (post-traumatic stress disorder) DX:PTSD (post-traumatic stress disorder) 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 [facility] Glucose POCT 91 70 - 100 mg/dL 02/25/2025 7:35 AM EDT [facility] Blood Capillary blood specimen / Unknown 02/25/2025 7:35 AM EDT 02/25/2025 7:36 AM EDT Alex Retana MD LAB POINT OF CARE TE ST DOCKED DEVICE UNSOLICITED RESULTS Final Result [facility] [address] [place] [address], [place] [phone] * (ABNORMAL) Basic metabolic panel (02/25/2025 6:24 AM EDT) Only the most recent of4 resultswithin the time period is included. [facility] Sodium 137 133 - 145 mmol/L LAB CHEMISTRY METHOD 02/25/2025 7:28 AM [facility] Potassium 3.6 3.5 - 5.5 mmol/L LAB CHEMISTRY METHOD 02/25/2025 7:28 AM EDT [facility] Chloride 104 96 - 110 mmol/L LAB CHEMISTRY METHOD 02/25/2025 7:28 AM T [facility] CO2 27 21 - 32 mmol/L LAB CHEMISTRY METHOD 02/25/2025 7:28 AM [facility] Anion Gap 6 3 - 11 LAB CHEMISTRY METHOD 02/25/2025 7:28 AM EDT [facility] Glucose 157(H) 70 - 100 mg/dL LAB CHEMISTRY METHOD 02/25/2025 7:28 AM EDT [facility] BUN 6 5 - 25 mg/dL LAB CHEMISTRY METHOD 02/25/2025 7:28 AM EDT [facility] Creatinine 0.62(L) 0.70 - 1.30 mg/dL LAB CHEMISTRY METHOD 02/25/2025 7:28 AM EDT [facility] eGFR 122 >=60 mL/min/1. 73m2 LAB CHEMISTRY METHOD 02/25/2025 7:28 AM EDT [facility] Comment:Calculation based on the Chronic Kidney Disease Epidemiology Collaboration (CKD-EPI) equation refit without adjustment for race. BUN/Creatinine Ratio 9.7 LAB CHEMISTRY METHOD 02/25/2025 7:28 AM EDT [facility] Calcium 8.9 8.5 - 10.5 mg/dL LAB CHEMISTRY METHOD 02/25/2025 7:28 AM EDT [facility] Blood Venous blood specimen / Unknown Venipuncture / Unknown 02/25/2025 6:24 AM EDT 02/25/2025 6:49 AM EDT us Alex Retana MD LAB BLOOD ORDERABLES Final Resul t [facility] [address] [place] [address], * (ABNORMAL) CBC auto differential (02/25/2025 6:23 AM EDT) Only the most recent of5 resultswithin the time period is included. WBC 4.9 4.8 - 10.8 K/mcL LAB HEMETOLOGY METHOD 02/25/2025 7:15 AM EDT [facility] RBC 3.70(L) 4.50 - 5.50 M/[facility] LAB HEMETOLOGY METHOD 02/25/2025 7:15 AM EDT [facility] Hemoglobin 11.3(L) 13.5 - 17.5 g/dL LAB HEMETOLOGY METHOD 02/25/2025 7:15 AM [facility] Hematocrit 33.9(L) 42.0 - 54.0 % LAB HEMETOLOGY METHOD 02/25/2025 7:15 AM [facility] MCV 91.6 79.0 - 98.0 FL LAB HEMETOLOGY METHOD 02/25/2025 7:15 AM [facility] MCH 30.5 27.0 - 32.0 pcg LAB HEMETOLOGY METHOD 02/25/2025 7:15 AM [facility] MCHC 33.3 32.0 - 37.0 g/dL LAB HEMETOLOGY METHOD 02/25/2025 7:15 AM [facility] RDW 16.9(H) 11.0 - 15.0 % LAB HEMETOLOGY METHOD 02/25/2025 7:15 AM [facility] Platelets 112(L) 130 - 400 K/mcL LAB HEMETOLOGY METHOD 02/25/2025 7:15 AM [facility] MPV 12.3(H) 7.0 - 11.0 FL LAB HEMETOLOGY METHOD 02/25/2025 7:15 AM [facility] NRBC 0.0 <1.0 % LAB HEMETOLOGY METHOD 02/25/2025 7:15 AM [facility] NRBC Absolute 0.00 <0.10 K/mcL LAB HEMETOLOGY METHOD 02/25/2025 7:15 AM [facility] Neutrophils Relative 81.6 % LAB HEMETOLOGY METHOD 02/25/2025 7:15 AM [facility] Lymphocytes Relative 11.3 % LAB HEMETOLOGY METHOD 02/25/2025 7:15 AM [facility] Monocytes Relative 4.9 % LAB HEMETOLOGY METHOD 02/25/2025 7:15 AM EDT [facility] Eosinophils Relative 1.4 % LAB HEMETOLOGY METHOD 02/25/2025 7:15 AM EDT [facility] Basophils Relative 0.4 % LAB HEMETOLOGY METHOD 02/25/2025 7:15 AM EDT [facility] Immature Granulocytes Relative 0.4 % LAB HEMETOLOGY METHOD 02/25/2025 7:15 AM EDT [facility] Neutrophils Absolute 4.03 1.50 - 7.00 K/mcL LAB HEMETOLOGY METHOD 02/25/2025 7:15 AM EDT [facility] Lymphocytes Absolute 0.56(L) 1.00 - 5.00 K/mcL LAB HEMETOLOGY METHOD 02/25/2025 7:15 AM EDT [facility] Monocytes Absolute 0.24 0.20 - 1.00 K/mcL LAB HEMETOLOGY METHOD 02/25/2025 7:15 AM EDT [facility] Eosinophils Absolute 0.07 0.00 - 0.50 K/mcL LAB HEMETOLOGY METHOD 02/25/2025 7:15 AM EDT [facility] Basophils Absolute 0.02 0.00 - 0.20 K/mcL LAB HEMETOLOGY METHOD 02/25/2025 7:15 AM EDT [facility] Immature Granulocytes Absolute 0.02 0.00 - 0.03 K/mcL LAB HEMETOLOGY METHOD 02/25/2025 7:15 AM EDT [facility] Blood Venous blood specimen / Unknown Venipuncture / Unknown 02/25/2025 6:23 AM EDT 02/25/2025 6:48 AM EDT us Alex Retana MD LAB BLOOD ORDERABLES Final Resul t [facility] [address] [place] [address], [place] [phone] * Culture blood (02/22/2025 8:45 AM EDT) Only the most recent of2 resultswithin the time period is included. Culture, Blood No growth at 5 days LAB MICROBIOLOGY METHOD 02/27/2025 9:01 AM EDT [facility] Blood Venous blood specimen / Unknown Venipuncture / Unknown 02/22/2025 8:45 AM EDT 02/22/2025 8:49 AM EDT us David Alexander MD LAB MICROBIOLOGY - GENERAL ORDERABLES Final Result [facility] [address] [place] [address], [place] [phone] * (ABNORMAL) Lactate (02/22/2025 5:03 AM EDT) Lactate 2.3(H) 0.4 - 2.0 mmol/L LAB CHEMISTRY METHOD 02/22/2025 5:37 AM EDT [facility] Blood Venous blood specimen / Unknown Venipuncture / Unknown 02/22/2025 5:03 AM EDT 02/22/2025 5:08 AM EDT us David Alexander MD LAB BLOOD ORDERABLES Final Result [facility] [address] [place] [address], [place] [phone] * (ABNORMAL) Lactate, with reflex (02/22/2025 2:17 AM EDT) Only the most recent of2 resultswithin the time period is included. LACTIC ACID 3.3(HH) 0.4 - 2.0 mmol/L LAB CHEMISTRY METHOD 02/22/2025 3:11 AM EDT [facility] Blood Venous blood specimen / Unknown Venipuncture / Unknown 02/22/2025 2:17 AM EDT 02/22/2025 2:22 AM EDT Salvador Oleary MD LAB BLOOD ORDERABLES [facility] [address] [place] [address], [place] [phone] * CT Chest/Abdomen/Pelvis w Contrast (02/22/2025 12:46 [...] by: Mayur Dewitt MD on 02/22/2025 01:56:59 Salvador Oleary MD IMG CT PROCEDURES Final Res ult * (ABNORMAL) Urinalysis with reflex microscopic (02/22/2025 12:09 AM EDT) Specific [place] Urine 1.022 1.003 - 1.030 LAB URINALYSIS - AUTOMATED METHOD 02/22/2025 12:53 AM [facility] pH, Urine 6.0 5.0 - 8.0 pH LAB URINALYSIS - AUTOMATED METHOD 02/22/2025 12:53 AM [facility] Leukocytes, Urine Negative Negative LAB URINALYSIS - AUTOMATED METHOD 02/22/2025 12:53 AM [facility] Nitrite, Urine Negative Negative LAB URINALYSIS - AUTOMATED METHOD 02/22/2025 12:53 AM [facility] Protein, Urine 30(A) <=Trace mg/dL LAB URINALYSIS - AUTOMATED METHOD 02/22/2025 12:53 AM [facility] Glucose, Urine Negative Negative mg/dL LAB URINALYSIS - AUTOMATED METHOD 02/22/2025 12:53 AM [facility] Ketones, Urine Trace(A) Negative mg/dL LAB URINALYSIS - AUTOMATED METHOD 02/22/2025 12:53 AM [facility] Urobilinogen, Urine 0.2 0.2 - 1.0 mg/dL LAB URINALYSIS - AUTOMATED METHOD 02/22/2025 12:53 AM [facility] Bilirubin, Urine Negative Negative LAB URINALYSIS - AUTOMATED METHOD 02/22/2025 12:53 AM [facility] Blood, Urine Negative Negative LAB URINALYSIS - AUTOMATED METHOD 02/22/2025 12:53 AM [facility] RBC, Urine 2.9 0 - 4 /HPF LAB URINALYSIS - AUTOMATED METHOD 02/22/2025 12:53 AM [facility] WBC, Urine 3.2 0 - 4 /HPF LAB URINALYSIS - AUTOMATED METHOD 02/22/2025 12:53 AM [facility] Squamous Epithelial, Urine 29 0 - 60 /LPF LAB URINALYSIS - AUTOMATED METHOD 02/22/2025 12:53 AM EDT [facility] Bacteria, Urine Negative Negative /HPF LAB URINALYSIS - AUTOMATED METHOD 02/22/2025 12:53 AM EDT [facility] Hyaline Casts, Urine 2.8 0 - 3 /LPF LAB URINALYSIS - AUTOMATED METHOD 02/22/2025 12:53 AM [facility] Urine Urine specimen obtained by clean catch procedure / Unknown Non-blood Collection / Unknown 02/22/2025 12:09 AM EDT 02/22/2025 12:46 AM EDT us Salvador Oleary MD LAB URINE ORDERABLES Final Result [facility] [address] [place] [address], [place] [phone] * (ABNORMAL) Drug abuse screen 8a panel, urine (02/22/2025 12:09 AM EDT) Amphetamine Screen, Ur Negative Negative LAB CHEMISTRY METHOD 5 1:23 AM [facility] Comment:Certain OTC medicati ons containing ephedrine, phenylephrine, pseudoephedrine and phenylpropanolamine can cause false positive results. Barbiturate Screen, Ur Positive(A ) Negative LAB CHEMISTRY METHOD 5 1:23 AM [facility] Benzodiazepine Screen, Ur Negative Negative LAB CHEMISTRY METHOD 5 1:23 AM [facility] Cocaine Screen, Ur Negative Negative LAB CHEMISTRY METHOD 5 1:23 AM [facility] Opiate Screen, Ur Negative Negative LAB CHEMISTRY METHOD 5 1:23 AM [facility] Cannabinoid (THC) Screen, Ur Negative Negative LAB CHEMISTRY METHOD 5 1:23 AM [facility] Comment:Specimens from patie nts taking pantoprazole sodium (Protonix) have been shown to produce false positive results. Oxycodone Screen, Ur Negative Negative LAB CHEMISTRY METHOD 1:23 AM EDT [facility] Fentanyl, Ur Negative Negative LAB CHEMISTRY METHOD 1:23 AM EDT [facility] Urine Urine specimen obtained by clean catch procedure / Unknown Non-blood Collection / Unknown 02/22/2025 12:09 AM EDT 02/22/2025 12:46 AM EDT [facility] - 02/22/2025 1:23 AM EDT [...] Oleary MD LAB URINE ORDERABLES Final Result [facility] [address] [place] [address], [place] [phone] * Buprenorphine screen, urine (02/22/2025 12:09 AM EDT) Buprenorphine Screen Urine Negative Negative LAB CHEMISTRY METHOD 02/22/2025 1:23 AM EDT [facility] Urine Urine specimen obtained by clean catch procedure / Unknown Non-blood Collection / Unknown 02/22/2025 12:09 AM EDT 02/22/2025 12:46 AM EDT [facility] - 02/22/2025 1:23 AM EDT Assay cutoff 5 ng/mL Semi-quantitative assay for screening purposes only. Unconfirmed screening result should not be used for non-medical purposes. *ALTERNATE METHOD CONFIRMATION DONE UPON REQUEST ONLY* Salvador Oleary MD LAB URINE ORDERABLES Final Result Performing Organization Address [facility] Co de Phone Number [facility] [address] [place] [address], [place] [phone] * Methadone, urine (02/22/2025 12:09 AM EDT) Methadone Screen, Urine Negative Negative LAB CHEMISTRY METHOD 02/22/2025 1:23 AM EDT [facility] Comment: Assay cutoff 300 ng/mL Semi-quantitative assay for screening purposes only. Unconfirmed screening result should not be used for non-medical purposes. *ALTERNATE METHOD CONFIRMATION DONE UPON REQUEST ONLY* Urine Urine specimen obtained by clean catch procedure / Unknown Non-blood Collection / Unknown 02/22/2025 12:09 AM EDT 02/22/2025 12:46 AM EDT Salvador Oleary MD LAB URINE ORDERABLES Final Result Performing Organization Address [facility] Co de Phone Number [facility] [address] [place] [address], [place] [phone] * Phencyclidine, urine (02/22/2025 12:09 AM EDT) PCP Scrn, Ur Negative Negative LAB CHEMISTRY METHOD 02/22/2025 1:23 AM EDT [facility] Comment: Assay cutoff 25 ng/mL Semi-quantitative assay for screening purposes only. Unconfirmed screening result should not be used for non-medical purposes. *ALTERNATE METHOD CONFIRMATION DONE UPON REQUEST ONLY* Urine Urine specimen obtained by clean catch procedure / Unknown Non-blood Collection / Unknown 02/22/2025 12:09 AM EDT 02/22/2025 12:46 AM EDT us Salvador Oleary MD LAB URINE ORDERABLES Final Result Performing Organization Address [facility]/ZIP Co de Phone Number [facility] [address] [place] [address], [place] [phone] * ECG 12 lead (02/21/2025 11:59 PM EDT) Ventricular Rate ECG 105 BPM GEMUSE Atrial Rate 105 BPM GEMUSE P-R Interval 138 ms GEMUSE QRS Duration 76 ms GEMUSE Q-T Interval 344 ms GEMUSE QTc 454 ms GEMUSE P Wave [place] 31 degrees GEMUSE R [place] -21 degrees GEMUSE T [place] 0 degrees GEMUSE ECG Interpretation Sinus tachycardia Possible Inferior infarct (cited on or before 02-MAR-2022) Possible Anterior infarct , age undetermined Abnormal ECG When compared with ECG of 08-APR-2024 23:15, Borderline criteria for Anterior infarct are now Present Inverted T waves have replaced nonspecific T wave abnormality in Inferior leads Confirmed by Roro NOYOLA JOHN ([id number]) on 02/22/2025 12:54:15 PM GEMUSE 02/21/2025 11:5 9 PM EDT 02/22/2025 12:54 PM EDT us Salvador Oleary MD ECG ORDERABLES Final Resul t GEMUSE * XR Hip 2-3 Views Right [...] Signed Date: 02/22/2025 08:47 ET Workstation ID: [id number] Transcribed By: Self Edit Transcribed Date: 02/22/2025 [...] Signed Date: 02/22/2025 08:47 ET Workstation ID: [id number] Transcribed By: Self Edit Transcribed Date: 02/22/2025 [...] masses. Lung apices are clear. Procedure Note Mayur Dewitt MD - 02/22/2025 [...] MD on 02/22/2025 00:12:30 Salvador Oleary MD IM CT PROCEDURES Final Res ult * CT [...] * C-reactive protein (02/21/2025 11:01 PM EDT) Pathologist [facility] C-Reactive Protein 0.34 <=0.50 mg/dL LAB CHEMISTRY METHOD 02/22/2025 4:20 AM EDT [facility] Blood Venous blood specimen / Unknown Venipuncture / Unknown 02/21/2025 11:01 PM EDT 02/21/2025 11:32 PM EDT David Alexander MD LAB BLOOD ORDERABLES Final Result Performing Organization Address [facility]/ZIP Co de Phone Number [facility] [address] [place] [address], [place] [phone] * (ABNORMAL) Magnesium (02/21/2025 11:01 PM EDT) [facility] Magnesium 1.3(L) 1.9 - 2.6 mg/dL LAB CHEMISTRY METHOD 02/22/2025 12:28 AM EDT [facility] Comment:Hemolysis present Blood Venous blood specimen / Unknown Venipuncture / Unknown 02/21/2025 11:01 PM EDT 02/21/2025 11:32 PM EDT Salvador Oleary MD LAB BLOOD ORDERABLES Final Result Performing Organization Address [facility]/ZIP Co de Phone Number [facility] [address] [place] [address], [place] [phone] * Lipase (02/21/2025 11:01 PM EDT) Pathologist [facility] Lipase 21 13 - 75 unit/L LAB CHEMISTRY METHOD 02/22/2025 12:28 AM EDT [facility] Blood Venous blood specimen / Unknown Venipuncture / Unknown 02/21/2025 11:01 PM EDT 02/21/2025 11:32 PM EDT Salvador Oleary MD LAB BLOOD ORDERABLES Final Result [facility] [address] [place] [address], [place] [phone] * (ABNORMAL) Ethanol (02/21/2025 11:01 PM EDT) Ethanol Level 79(H) 0 - 10 mg/dL LAB CHEMISTRY METHOD 02/22/2025 12:28 AM EDT [facility] Blood Venous blood specimen / Unknown Venipuncture / Unknown 02/21/2025 11:01 PM EDT 02/21/2025 11:32 PM EDT Salvador Oleary MD LAB BLOOD ORDERABLES Final Result [facility] [address] [place] [address], [place] [phone] * (ABNORMAL) Acetaminophen level (02/21/2025 11:01 PM EDT) Acetaminophen Level <2.0(L) 10.0 - 30.0 mcg/mL LAB CHEMISTRY METHOD 02/22/2025 12:28 AM EDT [facility] Blood Venous blood specimen / Unknown Venipuncture / Unknown 02/21/2025 11:01 PM EDT 02/21/2025 11:32 PM EDT Salvador Oleary MD LAB BLOOD ORDERABLES Final Result [facility] [address] [place] [address], [place] [phone] * (ABNORMAL) Salicylate level (02/21/2025 11:01 PM EDT) Salicylate Level <1.7(L) 2.0 - 29.0 mg/dL LAB CHEMISTRY METHOD 02/22/2025 12:28 AM [facility] Blood Venous blood specimen / Unknown Venipuncture / Unknown 02/21/2025 11:01 PM EDT 02/21/2025 11:32 PM EDT us Salvador Oleary MD LAB BLOOD ORDERABLES Final Result [facility] [address] [place] [address], [place] [phone] * (ABNORMAL) Comprehensive metabolic panel (02/21/2025 11:01 PM EDT) Sodium 142 133 - 145 mmol/L LAB CHEMISTRY METHOD 02/22/2025 12:28 AM [facility] Potassium 3.4(L) 3.5 - 5.5 mmol/L LAB CHEMISTRY METHOD 02/22/2025 12:28 AM [facility] Comment:Hemolysis present Chloride 103 96 - 110 mmol/L LAB CHEMISTRY METHOD 02/22/2025 12:28 AM [facility] CO2 25 21 - 32 mmol/L LAB CHEMISTRY METHOD 02/22/2025 12:28 AM [facility] Anion Gap 14(H) 3 - 11 LAB CHEMISTRY METHOD 02/22/2025 12:28 AM [facility] Glucose 118(H) 70 - 100 mg/dL LAB CHEMISTRY METHOD 02/22/2025 12:28 AM [facility] BUN 7 5 - 25 mg/dL LAB CHEMISTRY METHOD 02/22/2025 12:28 AM [facility] Creatinine 0.67(L) 0.70 - 1.30 mg/dL LAB CHEMISTRY METHOD 02/22/2025 12:28 AM [facility] eGFR 120 >=60 mL/min/1. 73m2 LAB CHEMISTRY METHOD 02/22/2025 12:28 AM [facility] Comment:Calculation based on the Chronic Kidney Disease Epidemiology Collaboration (CKD-EPI) equation refit without adjustment for race. BUN/Creatinine Ratio 10.4 LAB CHEMISTRY METHOD 02/22/2025 12:28 AM [facility] Calcium 8.9 8.5 - 10.5 mg/dL LAB CHEMISTRY METHOD 02/22/2025 12:28 AM [facility] AST (SGOT) 55(H) 10 - 42 unit/L LAB CHEMISTRY METHOD 02/22/2025 12:28 AM [facility] Comment:Hemolysis present ALT (SGPT) 60 10 - 60 unit/L LAB CHEMISTRY METHOD 02/22/2025 12:28 AM [facility] Alkaline Phosphatase 115 42 - 121 unit/L LAB CHEMISTRY METHOD 02/22/2025 12:28 AM [facility] Total Protein 6.8 6.0 - 8.0 g/dL LAB CHEMISTRY METHOD 02/22/2025 12:28 AM [facility] Albumin 3.5 3.2 - 5.0 g/dL LAB CHEMISTRY METHOD 02/22/2025 12:28 AM [facility] Total Bilirubin 0.3 0.0 - 1.4 mg/dL LAB CHEMISTRY METHOD 02/22/2025 12:28 AM [facility] Blood Venous blood specimen / Unknown Venipuncture / Unknown 02/21/2025 11:01 PM EDT 02/21/2025 11:32 PM EDT us Salvador Oleary MD LAB BLOOD ORDERABLES Final Result [facility] [address] [place] [address], [place] [phone] from Last 3 Months Insurance MEDICARE [place]ICAID - [place] Advance Directives * Full Code - Default [...] currently active code status orders. Care Teams Evaluation Manager Relationship Specialty Start Date End Date Physician, No Pcp PCP - General 02/22/25
--- OUTSIDE RECORDS SUMMARY | 2025-04-21 10:54 | XMS_ITS | Encounter Summary ---
Author Organization [facility] Address [address] [place] [phone] Phone Care Team Providers Care Retail Receiving Clerk Name Role Phone Rosa Sepulveda NP Primary Care Provider [phone] Encounter Details Date Type Department Care Team ([facility] st Contact Info) Description 05/27/2020 Procedure Pass OR Admitting Dept - Virtual Department [address] [place] [address] Social History Tobacco Use Types Packs/Day Years Used Date Smoking Tobacco: Every Day Smokeless Tobacco: Never Alcohol Use Standard Drinks/Week Comments Not Currently 0 (1 standard drink = 0.6 oz pur e alcohol) Sex and Gender Information Value Date Recorded Sex Assigned at Not on file Legal Sex Male 9:18 PM EDT Gender Identity Not on file Sexual Orientation Not on file documented as of this encounter Plan of Treatment Not on file documented as of this encounter Visit Diagnoses Not on filedocumented in this encounter Care Teams Retail Receiving Clerk Relationship Specialty Start Date End Date Rosa Sepulveda NP [address] [place] [phone] PCP - General Family Medicine 09/13/19 documented as of this encounter Additional Source Comments The information contained in this document represents components of the legal health record. It is not the complete legal health record.[facility]
--- OUTSIDE RECORDS SUMMARY | 2025-04-21 10:54 | XMS_ITS | Encounter Summary ---
Author Organization [facility] Address [address] [place] [address] Phone Care Team Providers Care Antisqueak Filler Name Role Phone Rosa Sepulveda NP Primary Care Provider +1- [phone] Encounter Details Date Type Department Care Team ([facility] st Contact Info) Description 05/27/2020 Procedure Pass OR Admitting Dept - Virtual Department [address] [place] [address] Social History Tobacco Use Types Packs/Day Years [...] on filedocumented in this encounter Care Teams Antisqueak Filler Relationship Specialty Start Date End Date Rosa Sepulveda NP [address] [place] [address] PCP - General Family Medicine 09/13/19 documented as of this encounter Additional Source Comments The information contained in this document represents components of the legal health record. It is not the complete legal health record.[facility]
--- OUTSIDE RECORDS SUMMARY | 2025-04-21 10:58 | XMS_ITS | Clinical Summary ---
Author Organization [facility] Address [address] [place] [address] Phone Care Team Providers Care Auditor Tax Name Role Phone Rosa Sepulveda NP Primary Care Provider +1- [phone] Allergies Active Allergy Reactions Criticality Noted Date Comments Baclofen Hives Medium 06/20/2019 Lidocaine 04/02/2020 Topical,states steward his skin off Vgj-Mrrwqgvsdos-Kigdzihrzpp en 09/13/2019 Diclofenac Sodium 02/08/2020 Topical,states steward skin off Medications omeprazole (PRILOSEC) 20 MG capsule omeprazole 20 mg capsule,delayed release 9 Active amitriptyline (ELAVIL) 25 MG tablet Take 25 mg by mouth nightly at bedtime as needed. 9 Active cholecalciferol (VITAMIN D3) 5,000 unit capsule Take 1 tablet by mouth. Active divalproex (DEPAKOTE ER) 500 MG ER 24 hr tablet Take 1,500 mg by mouth. 9 Active doxepin (SINEQUAN) 25 MG capsule doxepin 25 mg capsule Active gabapentin (NEURONTIN) 300 MG capsule gabapentin 300 mg capsule 9 Active ipratropium (ATROVENT) 0.03 % nasal spray ipratropium bromide 0.03 % nasal spray 9 Active nystatin (NYSTOP) powder nystatin 100,000 unit/gram topical powder Active tamsulosin (FLOMAX) 0.4 mg Cap 0.8 mg. 9 Active venlafaxine (EFFEXOR-XR) 75 MG 24 hr capsule venlafaxine ER 75 mg capsule,extended release 24 hr 9 Active melatonin 1 mg Tab Take by mouth nightly at bedtime. Active calcium carbonate (CALCIUM 500 ORAL) Take by mouth. Activ e ipratropium-alb uteroL (COMBIVENT RESPIMAT) 20-100 mcg/actuation Mist Inhale 1 puff into the lungs 4 (four) times a day. Active Active Problems Problem Noted Date Diagnosed Date Pressure injury of right ischium, stage 3 2018 Overview (02/08/2020): Present on admission Anxiety 05/18/2019 Depression 05/18/2019 Neuropathy 05/18/2019 Sacral wound 05/18/2019 Social History Tobacco Use Types Packs/Day Years Used Date Smoking Tobacco: Every Day Cigarettes Smokeless Tobacco: Never Alcohol Use Standard Drinks/Week Comments Not Currently 0 (1 standard drink = 0.6 oz pur e alcohol) occasional Education Answer Date Recorded Are you interested in more education? Not on yanna e 12/18/2022 Are you concerned about learning? Not on file 12/18/2022 No 12/18/2022 No 12/18/2022 Digital Access Answer Date Recorded No 01/15/2023 No 01/15/2023 No 01/15/2023 Reliable internet access at home? Not on file 01/15/2023 Device with a working camera? Not on file Sex and Gender Information Value Date Recorded Sex Assigned at Not on file Legal Sex Male 9:18 PM EDT Gender Identity Not on file Sexual Orientation Not on file Last Filed Vital Signs Vital Sign Reading Time Taken Comments Blood Pressure - - Pulse - - Temperature - - Respiratory Rate - - Oxygen Saturation - - Inhaled Oxygen Concentration - - Weight 137.4 kg (303 lb) 04/02/2020 1:08 PM EDT Height 180.3 cm (5' 11 ) 04/02/2020 1:08 PM EDT Body Mass Index 42.26 04/02/2020 1:08 PM EDT Plan of Treatment Health Maintenance Due Date Last Done Comments Adult Td,Tdap Booster 1983 LIPID PANEL 1983 VALPROIC ACID (DEPAKENE) LEVEL 1983 DEPRESSION SCREENING 1995 SMOKING Hx and SMOKELESS TOBACCO SCREENING 02/01/1996 HEPATITIS C SCREENING 2001 HIV ONE-TIME SCREENING (18-6 5 YEARS) 2001 PNEUMOCOCCAL VACCINES (0-49 years) (1 of 2 - PCV) 2002 COVID-19 VACCINE (2023-2 5 season) 2024 07/29/2021, 01/16/2021, 12/26/2020 HEPATITIS A VACCINES Aged Out No long er eligible based on patient's age to complete this topic HIB VACCINES Aged Out No longer eligi ble based on patient's age to complete this topic MENINGOCOCCAL VACCINES (ACWY) Aged Out No longer eligible based on patient's age to complete this topic MENINGOCOCCAL VACCINES (B) Aged Out N o longer eligible based on patient's age to complete this topic Medical Devices Not on file Insurance MEDICARE PART A & B [facility] MEDIC[facility] PART A & B Member Subscriber Plan / Payer (Ef fective 2004-) Name:Jean Roldan Member ID:[id number] Relation to Subscriber:Self Name:Jean Roldan Subscriber ID:[id number] Payer ID:[id number] Group ID:Not on file Type:Medicare Address: [facility] [employer] [facility] [employer] [facility] [address] [place] [address] [place] A [place] B MEDICARE PART A & B [place] B [id number] [place], [place] [address]HEALTH MEDICARE PART A & [facility] MEDICARE PART A & B MEDICARE PART A & B Care Teams Auditor Tax Relationship Specialty Start Date End Date Rosa Sepulveda NP [address] [place] [address] PCP - General Family Medicine 09/13/19 Additional Source Comments The information contained in this document represents components of the legal health record. It is not the complete legal health record.[facility]
--- NOTE | 2025-04-21 11:30 | PC.NURSE ---
Pt states he had recent admission to hospital x 4 days, secondary to sepsis d/t LLE osteomyelitis. Pt d/c'd 4 days ago for long-term abx at home. Pt states he had the n/v/d prior to admisssion but since then it has picked up quite a bit. Pt also endorses chills and increased pain. Pt states he is slotted for an appt on Wednesday to discuss possible removal of the third and fourth toes
--- NOTE | 2025-04-21 11:47 | ED_ITS ---
HPI - Nausea/Vomiting/Diarrhea General Chief complaint: Nausea/Vomiting/Diarrhea Stated complaint: L PAIN SWELLING AND PAIN Time Seen by Provider: 04/21/25 11:32 Source: patient Mode of arrival: ambulatory Limitations: no limitations History of Present Illness ED Provider: DR. Iyer HPI Narrative: A 40-year-old male living home alone patient is disabled and wheelchair-bound, PMHx right BKA, complicated diabetes, chronic sacral wound, C diff, bipolar disease, PTSD, alcohol abuse, polysubstance abuse, liver cirrhosis, recently discharged from the hospital for left foot osteomyelitis the with a question of amputation of 2nd and 3rd toes on the left foot that patient will follow-up with vascular surgery early next week patient was sent home on PICC line with daptomycin 785 mg IV daily, returned today for evaluation of nausea vomiting, and nonbloody watery diarrhea, left lower abdominal pain, pain is uncontrolled at home. Related Data Home Medications ?Medication ?Instructions ?Recorded ?Confirmed hydroxyzine HCl 50 mg tablet 50 mg PO TID 04/14/25 omeprazole 40 mg capsule,delayed 40 mg PO BID@0630,163 0 04/14/25 04/14/25 release pregabalin 225 mg capsule 225 mg PO BID 04/14/2504/14 quetiapine 300 mg tablet 300 mg PO BEDTIME 04/14/25 0 04/14/25 sertraline 100 mg tablet 150 mg PO DAILY 04/14/25 Previous Rx's ?Medication ?Instructions ?Recorded erythromycin 5 mg/gram (0.5 %) eye 1 appl ophthalmic ( eye) Q8H #3.5 04/18/25 ointment grams loperamide 2 mg capsule 2 mg PO Q6H PRN diarrhea #30 caps 04/18/25 (Anti-Diarrheal (loperamide)) oxycodone 5 mg tablet 5 mg PO Q8H PRN pain, severe #9 04/18/25 tabs oxycodone 5 mg tablet 5 mg PO BID PRN pain #7 tabs 04/21/25 oxycodone 5 mg tablet 5 mg PO Q8H PRN pain #7 tabs 04/21/25 Allergies Allergy/AdvReac Type Severity Reaction Status Date / Time baclofen Allergy Hives Verified 04/21/25 10:31 escitalopram (From Lexapro) Allergy Vomiting Verified 04/21/25 10:31 lithium Allergy Unresponsiv Verified 04/21/25 10:31 e metformin Allergy Unknown Verified 04/21/25 10:31 morphine Allergy Hives Verified 04/21/25 10:31 sulfamethoxazole (From Allergy Hives Verified 04/21/25 10:31 Bactrim) tramadol Allergy Hives Verified 04/21/25 10:31 trimethoprim (From Bactrim) Allergy Hives Verified 04/21/25 10:31 Review of Systems 2 Review of Systems: All other systems are reviewed and are negative Constitutional: Reports as per HPI and Reports no additional constitutional complaints Eyes: Reports as per HPI and Reports no additional eye complaints Reports system reviewed and no additional complaints, except as documented Cardiovascular: Reports as per HPI and Reports no additional cardiovascular complaints Respiratory: Reports as per HPI and Reports no additional respiratory complaints Gastrointestinal: Reports as per HPI and Reports no additional gastrointestinal complaints Genitourinary: Reports no additional female genitourinary complaints Musculoskeletal: Reports no additional musculoskeletal complaints Skin/Breast: Reports system reviewed and no additional complaints, except as docu Psychiatric: Reports no additional psychiatric complaints Endocrine: Reports no additional endocrine complaints Hematologic/Lymphatic: Reports no additional hematologic/lymphatic complaints Allergic/Immunologic: Reports no additional allergic/immunologic complaints Reports system reviewed and no additional complaints, except as documented and Reports Abnormal speech present [facility] Past Medical History Medical History Sacral decubitus ulcer Osteomyelitis of foot Decubitus ulcer Amputation of one or more toes Aftercare following right hip joint replacement surgery Bipolar disorder PTSD (post-traumatic stress disorder) Sacral decubitus ulcer Peripheral neuropathy 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 Surgical History History of esophagogastroduodenoscopy (EGD) Hx of laminectomy History of total hip replacement Hx of right BKA Social History Social History Household Members: None Housing: Condominium Are you a primary customer care assistant to a significant other at home: No Do you presently have visiting nurse or other home services: Yes (S[employer]IOR [employer]EE DEVELOPER twice daily, every day) Alcohol intake: current Alcohol intake frequency: former alcohol drinker Alcohol type: hard liquor Comment: stand pivot to luz marina avila Patient Tobacco Use Status: Current everyday Tobacco user Tobacco use type: Cigarette Cigarette Packs Per Day: 1 Cigarettes Per Day: 3 Years Smoked: 29 years Second Hand Smoke Exposure: No Substance Use Type: Crack/Cocaine service: No Physical Exam 2 Vital Signs: Vital Signs: Last Vital Signs Temp 97.5 F 04/21/25 15:57 Pulse 68 04/21/25 15:57 Resp 17 04/21/25 15:57 BP 134/72 04/21/25 15:57 Pulse Ox 98 04/21/25 15:57 O2 Del Method Room Air 04/21/25 15:57 BMI result Body Mass Index 34.3 Vital signs have been reviewed and appear to be correct. Blood pressure elevated. Heart rate normal. Respiratory rate normal. Temperature normal. Oxygen saturation normal. Appearance: Alert. Oriented X3. No acute distress. Head: Normal external exam. Normocephalic. Atraumatic. No Cuellar signs noted. No raccoon eyes noted Eyes: PERRLA. EOMI. Conjunctiva and sclera normal. Eyelids normal. ENT: TM's Normal. Pharynx normal. Uvula midline. Moist mucous membranes. No trismus noted. No drooling noted. No muffled voice noted. Neck: Normal inspection. Neck supple. FROM. No adenopathy. Thyroid Normal. No meningeal signs. No neck mass noted. CVS: Normal heart rate and rhythm. Heart sound normal. No murmurs noted. Pulses normal throughout. Respiratory: No respiratory distress. Painless inspiration. Breath sounds normal. No wheezes/rales/rhonchi noted. Chest nontender. No accessory muscle usage noted or decreased air movement noted. Abdomen: Soft and nontender. Bowel sounds normal in all 4 quadrants. No distention noted. No organomegaly noted. No visible injury noted. Back: No CVA tenderness. Full range of motion noted. Skin: Skin warm and dry. Normal skin color. Normal skin turgor. No rashes/lesions/lacerations noted. Extremities: Right BKA, slight erythema on the 2nd and 3rd left toe. Neuro: Oriented X 3. Cranial nerve exam: II-XII are grossly intact No motor deficit. No sensory deficit. Reflexes normal. Course Reevaluation(s) Reevaluation #1: 40-year-old male with osteomyelitis to left 2nd and 3rd toe patient is on antibiotic and PICC line at home, return for pain control, all workup is negative including C diff, CT abdomen pelvis negative for intra-abdominal pathology except for chronic osteomyelitis in the lumbar area which is unchanged from prior study, labs is unremarkable because of patient's history of polysubstance abuse will conservatively prescribe few pills of oxycodone to help the patient's symptoms otherwise to follow-up with vascular surgeon as scheduled next week. There is no medical indication for hospitalization at this point will discharge to follow-up with his outpatient appointments. Time: 15:39 Reevaluation #2: Prescription for 7 pills of oxycodone was sent to [facility] [place] [place] pharmacy that is closed today patient called to have another prescription to [facility]. Will prescribe another prescription to [facility]. Time: 18:00 Medications Administered Discontinued Medications Generic Name Dose Route Start Last Admin Trade Name Freq PRN Reason Stop Dose Admin Hydromorphone HCl 1 mg 04/21/25 12:05 04/21/25 12:11 Hydromorphone Hcl 1 Mg/Ml Syringe IVPUSH 04/21/25 12:06 1 mg ONCE ONE Administration Protocol Ketorolac Tromethamine 15 mg 04/21/25 11:45 04/21/25 12:10 Ketorolac Tromethamine 15 Mg/Ml Vial IVPUSH 04/21/25 11:46 15 mg ONCE ONE Administration Ondansetron HCl 4 mg 04/21/25 11:45 04/21/25 12:10 Ondansetron Hcl 4 Mg/2 Ml Vial IVPUSH 04/21/25 11:46 4 mg ONCE ONE Administration Medical Decision Making Differential Diagnosis Differential Diagnoses: The differential diagnosis associated with the presentation includes (Worsening Osteomyelitis, C diff, colitis, diverticulitis, electrolyte derangement, drug-seeking behavior.) Admission/Observation Consideration of admission/observation: Escalation of care including admission/observation considered Lab Data MDM Lab Attestation statement: I reviewed the patient's lab results. 04/21/25 12:06 Labs: Lab Results 04/21/25 04/21/25 04/21/25 Range/Units 12:06 13:41 13:42 WBC 6.6 (4.8-10.8) X10*3/uL RBC 4.52 L (4.60-5.80) X10*6/uL Hgb 12.4 L (14.0-18.0) g/dl Hct 36.5 L (42.0-52.0) % MCV 80.8 D (80.0-98.0) fL MCH 27.4 (27.0-33.0) pg MCHC 34.0 (31.0-36.0) g/dl RDW 14.3 (11.0-16.0) % Plt Count 251 D (160-400) X10*3/uL MPV 11.3 (9.4-12.4) fL Immature Gran % (Auto) 0.3 (0.0-0.4) % Neut % (Auto) 72.2 (45-73) % Lymph % (Auto) 20.4 (20-40) % Alcorn % (Auto) 6.2 (2-11) % Eos % (Auto) 0.6 (0-4) % Baso % (Auto) 0.3 (0-2) % Lymph # (Auto) 1.4 (1.2-4.9) X10*3/uL Alcorn # (Auto) 0.4 (0.1-1.2) X10*3/uL Eos # (Auto) 0.0 (0.0-0.4) X10*3/uL Baso # (Auto) 0.0 (0.0-0.2) X10*3/uL Abs Immat Gran (auto) 0.02 (0.00-0.03) X10*3/uL Absolute Neuts (auto) 4.8 (2.0-8.3) x10*3/uL Absolute Nucleated RBC 0.000 (0.0-0.012) X10*3/uL Nucleated RBC % (auto) 0.0 (0.0-0.2) /100WBC PT 14.0 H (10.9-12.4) SEC INR 1.2 H (0.9-1.1) Sodium 143 (135-145) mmol/L Potassium 3.7 (3.3-5.1) mmol/L Chloride 110 H (96-108) mmol/L Carbon Dioxide 20 L (22-29) mmol/L Anion Gap 17 (12-20) BUN 14 (9-16) mg/dL Creatinine 0.61 (0.5-1.4) mg/dL Estim Creat Clear Calc 212.3 Estimated GFR > 60 Random Glucose 127 H (60-115) mg/dL Lactic Acid 1.4 (0.5-2.0) mmol/L Calcium 9.4 D (8.4-10.2) mg/dL Total Bilirubin 0.4 (0.0-1.0) mg/dL Direct Bilirubin 0.2 (0.0-0.5) mg/dL AST 61 H (5-37) U/L ALT 69 H (0-40) U/L Alkaline Phosphatase 92 (39-117) U/L Total Protein 7.3 (6.5-8.0) g/dL Albumin 4.4 (3.5-5.0) g/dL Lipase 13 (8-78) U/L Urine Color Dark Yellow Urine Appearance Cloudy Urine pH 5.5 (5.0-9.0) Ur Specific Dixon 1.025 (1.005-1.025) Urine Protein Trace (Neg-Trace) mg/dL Urine Glucose (UA) Negative (Negative) mg/dL Urine Ketones Negative (Negative) mg/dL Urine Blood Negative (Negative) Urine Nitrite Negative (Negative) Ur Leukocyte Esterase Negative (Negative) C. difficile Tox B Gene NEGATIVE (Negative) Influenza Type A (PCR) NEGATIVE (Negative) Influenza Type B (PCR) NEGATIVE (Negative) RSV RNA Qual (PCR) NEGATIVE (Negative) SARS-CoV-2 RNA (RT-PCR) NEGATIVE (Negative) Independent Interpretation I performed an independent interpretation of an: Plain X-Ray (Chest: No acute findings) and CT Scan (Abdomen and pelvis:1. Findings which could indicate mild osteomyelitis at the sacrococcygeal junction unchanged compared to 04/01/2025. 2. Bilateral ischial wounds. 3. Cirrhosis. 4. Cholelithiasis. 5. Stable left adrenal adenomata.) Radiology Impression Discussion of test interpretation with radiology: I have reviewed the radiologist's reading. Discharge Plan Discharge Clinical Impression: Chronic leg pain, Foot osteomyelitis, left Patient Disposition: Home, Self-Care Instructions: Osteomyelitis (ED), Abdominal Pain (ED) Prescriptions: New oxycodone 5 mg tablet 5 mg PO Q8H PRN (Reason: pain) Qty: 7 0RF Rx Instructions: Partial Fill upon patient request. oxycodone 5 mg tablet 5 mg PO BID PRN (Reason: pain) Qty: 7 0RF Rx Instructions: Partial Fill upon patient request. No Action quetiapine 300 mg tablet 300 mg PO BEDTIME sertraline 100 mg tablet 150 mg PO DAILY hydroxyzine HCl 50 mg tablet 50 mg PO TID omeprazole 40 mg capsule,delayed release(DR/EC) 40 mg PO BID@0630,1630 pregabalin 225 mg capsule 225 mg PO BID oxycodone 5 mg tablet 5 mg PO Q8H PRN (Reason: pain, severe) Qty: 9 0RF Rx Instructions: Partial Fill upon patient request. Take one tablet up to three times a day for severe pain. erythromycin 5 mg/gram (0.5 %) ointment 1 appl ophthalmic (eye) Q8H Qty: 3.5 0RF Rx Instructions: Apply 1cm in both eyes three times a day for the next 3 days, ending on 04/21 loperamide [Anti-Diarrheal (loperamide)] 2 mg capsule 2 mg PO Q6H PRN (Reason: diarrhea) Qty: 30 0RF Referrals: Fei Hernandez MD [Physician, Vascular Surgery] Kelly Jackson NP [Primary Care Provider, Internal Medicine] Interventions: ED Discharge Assessment Last Done: 04/21/25 15:57 Discharge Date/Time: 04/21/25 16:03 Print Language: Setswana
[2025-04-21 12:00] VITALS: BP 140/83; PULSE 69; RESP 15; TEMP 36.9; O2SAT 99
[2025-04-21 12:22] LABS: MANUAL DIFF FLAG NO
[2025-04-21 12:25] LABS: Hematocrit 36.5 % (42.0-52.0); Hemoglobin 12.4 g/dl (14.0-18.0); Imm Gran Abs Auto 0.02 X10*3/uL (0.00-0.03); Imm Gran Pct Auto 0.3 % (0.0-0.4); Lymphocytes Absolute Auto 1.4 X10*3/uL (1.2-4.9); Mean Corpuscular HGB Conc 34.0 g/dl (31.0-36.0); Mean Corpuscular Hemoglobin 27.4 pg (27.0-33.0); Mean Corpuscular Volume 80.8 fL (80.0-98.0); NRBC Abs Auto 0.000 X10*3/uL (0.0-0.012); NRBC Pct Auto 0.0 /100WBC (0.0-0.2); Platelet Count 251 X10*3/uL (160-400); Red Blood Count 4.52 X10*6/uL (4.60-5.80); White Blood Count 6.6 X10*3/uL (4.8-10.8)
[2025-04-21 12:33] LABS: INTERNATIONAL NORM RATIO 1.2 (0.9-1.1); Prothrombin Time 14.0 SEC (10.9-12.4)
[2025-04-21 12:41] LABS: Alanine Aminotransferase 69 U/L (0-40); Albumin Level 4.4 g/dL (3.5-5.0); Alkaline Phosphatase 92 U/L (39-117); Anion Gap 17 (12-20); Aspartate Amino Transferase 61 U/L (5-37); Blood Urea Nitrogen 14 mg/dL (9-16); Calcium 9.4 mg/dL (8.4-10.2); Carbon Dioxide 20 mmol/L (22-29); Chloride 110 mmol/L (96-108); Creatinine Clr Calc Pharmacy 212.3; Estimated Glomerular Filt Rate > 60; Lipase 13 U/L (8-78); Potassium 3.7 mmol/L (3.3-5.1); Sodium 143 mmol/L (135-145); Total Protein 7.3 g/dL (6.5-8.0)
[2025-04-21 13:14] LABS: Resp Syncy Virus RNA Qual PCR NEGATIVE (Negative); SARS COV2 PCR INHOUSE NEGATIVE (Negative)
[2025-04-21 13:38] VITALS: BP 156/88; PULSE 101; RESP 18; TEMP 36.9; O2SAT 96
[2025-04-21 14:00] LABS: Appearance Urine Cloudy; Glucose Urine UA Negative (Negative); PH 5.5 (5.0-9.0); Specific Gravity - Urine 1.025 (1.005-1.025)
[2025-04-21 15:13] VITALS: BP 134/72; PULSE 68; RESP 17; TEMP 36.4; O2SAT 98
[2025-04-21 15:16] LABS: CDiff Gene PCR NEGATIVE (Negative)
[2025-04-21 15:57] VITALS: BP 134/72; PULSE 68; RESP 17; TEMP 36.4; O2SAT 98
== END 2025-04-21 16:03 | disposition home or self-care (01) ==
PROVIDERS: Emergency Provider Emergency Medicine; PCP Nurse Practitioner Family
DX: M86.8X7 Other osteomyelitis, ankle and foot (principal); R11.2 Nausea with vomiting, unspecified; R60.0 Localized edema; R10.32 Left lower quadrant pain; R19.7 Diarrhea, unspecified; M79.605 Pain in left leg; F17.210 Nicotine dependence, cigarettes, uncomplicated; Z79.899 Other long term (current) drug therapy; Z03.818 Encounter for observation for suspected exposure to other biological agents ruled out
CPT/HCPCS: 36415; 71045; 74176; 80048; 80076; 81003; 83605; 83690; 85025; 85610; 87040; 87493; 87637; 96374; 96375; 99284; 99285; J1171; J1885; J2405

== ENCOUNTER → 2025-04-21 11:40 | Outpatient (BNV) | payer MEDICARE, MEDICAID, SELFPAY | PROVIDERS: Emergency Provider Emergency Medicine; PCP Nurse Practitioner Family; Visit Provider Radiology Diagnostic Radiology | DX: K80.20 Calculus of gallbladder without cholecystitis without obstruction (principal); K74.60 Unspecified cirrhosis of liver; D35.02 Benign neoplasm of left adrenal gland; R10.9 Unspecified abdominal pain | CPT/HCPCS: 71045; 74176 ==

== ENCOUNTER 2025-04-27 14:15 | Inpatient (IN) | payer MEDICARE, MEDICAID, SELFPAY ==
--- NOTE | ~2025-04-27 | US_ITS ---
CLINICAL HISTORY: pain, swelling Venous duplex ultrasound left lower extremity COMPARISON: None provided. FINDINGS: The visualized deep veins are fully compressible with normal Doppler color flow and spectral tracings. No popliteal cyst. Prominent but otherwise morphologically normal left groin lymph node measuring 3.8 x 0.9 x 3.0 cm with normal fatty hilum, likely reactive. IMPRESSION: 1. Negative for left lower extremity deep vein thrombosis. This document has been electronically signed by: Barry Hernandez MD on 04/27/2025 19:07:13
--- NOTE | ~2025-04-27 | XR_ITS ---
CLINICAL HISTORY: infection Three views of the left ankle. COMPARISON: XR left foot dated 04/27/25 at 19:52 EDT FINDINGS: Osteopenia. No ankle joint effusion. Visualized portions of the distal tibia and fibula appear intact. Ankle mortise appears symmetric on non stressed views. Talar dome appears intact. Prominent Dre deformity along the proximal aspect of the calcaneus possibly representing remote avulsion injury. No adjacent soft tissue edema. Visualized tarsal bones appear intact. No lytic or sclerotic lesion. No periostitis. No cortical erosions identified. IMPRESSION: 1. No radiographic evidence of acute injury to the left ankle. No radiographic evidence of osteomyelitis. 2. Osteopenia. This document has been electronically signed by: Barry Hernandez MD on 04/27/2025 20:30:52
--- NOTE | ~2025-04-27 | XR_ITS ---
CLINICAL HISTORY: stump infection Two views of the right femur. COMPARISON: None provided. FINDINGS: Right total hip arthroplasty appears in anatomic alignment. No evidence of hardware loosening or failure. Prominent heterotopic ossification present along the greater trochanter. Right femur appears intact. Degenerative changes of the partially visualized right knee with joint space narrowing. Visualized portions of the right hemipelvis appear intact. Pelvic phleboliths present. IMPRESSION: 1. No radiographic evidence of acute injury to the right femur. 2. Anatomic alignment of right total hip arthroplasty without evidence of hardware complication This document has been electronically signed by: Barry Hernandez MD on 04/27/2025 20:28:48
--- NOTE | ~2025-04-27 | XR_ITS ---
CLINICAL HISTORY: infection Three views of the left foot. COMPARISON: MR left foot dated 04/14/25 at 12:33 EDT XR left foot dated 04/13/25 at 22:30 EDT FINDINGS: Osteopenia. No ankle joint effusion. Normal tarsometatarsal alignment. Tarsal bones appear intact. Chronic deformity of the proximal aspect of the calcaneus, similar to prior imaging. Resection of the head of the 5th metatarsal. Chronic healed fracture deformity of the distal aspect of the 4th metatarsal. Degenerative changes of the 1st MTP joint with joint space narrowing. Amputation of the head of the 1st and 2nd proximal phalanges. Diffusely increased sclerosis within the 2nd proximal phalanx. There is widening of the 2nd PIP joint. Fusion of the 4th PIP and 5th PIP joints. Linear radiopaque foreign body measuring 5 mm overlies the base of the 5th proximal phalanx. IMPRESSION: 1. No significant interval change from prior imaging. 2. Stable diffusely increased sclerosis within the 3rd proximal phalanx with widening of the 3rd PIP joint, nonspecific. Septic arthritis and chronic osteomyelitis could have this appearance. 3. Similar appearance of linear radiopaque foreign body measuring 5 mm overlying the base of the 5th proximal phalanx. Recommend correlation clinically. 4. Osteopenia. This document has been electronically signed by: Barry Hernandez MD on 04/27/2025 20:28:01
--- NOTE | ~2025-04-27 | XR_ITS ---
CLINICAL HISTORY: ? OM Two views of the left tibia and fibula. COMPARISON: None provided. FINDINGS: Osteopenia. Tibia and fibula appear intact. No cortical disruption, periostitis, lytic or sclerotic lesion. Visualized portions of the left knee and ankle appear intact. IMPRESSION: 1. No radiographic evidence of acute injury to the left tibia and fibula. No radiographic evidence of osteomyelitis. No radiopaque foreign body. 2. Osteopenia. This document has been electronically signed by: Barry Hernandez MD on 04/27/2025 20:20:53
[2025-04-27 14:23] VITALS: BP 143/75; PULSE 95; RESP 18; TEMP 37.4; O2SAT 96; BMI 39.7
--- NOTE | 2025-04-27 14:34 | ECG_ITS ---
Test Reason : WEAKNESS Blood Pressure : */* mmHG Vent. Rate : 80 BPM Atrial Rate : 80 BPM P-R Int : 154 ms QRS Dur : 72 ms QT Int : 388 ms P-R-T Axes : 38 -22 -14 degrees QTcB Int : 447 ms Normal sinus rhythm Cannot rule out Anterior infarct (cited on or before 02-Nov-2020) Abnormal ECG When compared with ECG of 06-Apr-2025 02:34, Vent. rate has decreased by 44 bpm Referred By: Generic ED Physician Electronically Signed By: Renny Calle
[2025-04-27 14:56] LABS: MANUAL DIFF FLAG NO
[2025-04-27 14:57] LABS: Hematocrit 35.4 % (42.0-52.0); Hemoglobin 12.0 g/dl (14.0-18.0); Imm Gran Abs Auto 0.03 X10*3/uL (0.00-0.03); Imm Gran Pct Auto 0.3 % (0.0-0.4); Lymphocytes Absolute Auto 2.3 X10*3/uL (1.2-4.9); Mean Corpuscular HGB Conc 33.9 g/dl (31.0-36.0); Mean Corpuscular Hemoglobin 27.5 pg (27.0-33.0); Mean Corpuscular Volume 81.2 fL (80.0-98.0); NRBC Abs Auto 0.000 X10*3/uL (0.0-0.012); NRBC Pct Auto 0.0 /100WBC (0.0-0.2); Platelet Count 282 X10*3/uL (160-400); Red Blood Count 4.36 X10*6/uL (4.60-5.80); White Blood Count 10.1 X10*3/uL (4.8-10.8)
[2025-04-27 15:11] LABS: Alanine Aminotransferase 41 U/L (0-40); Albumin Level 4.3 g/dL (3.5-5.0); Alkaline Phosphatase 101 U/L (39-117); Anion Gap 15 (12-20); Aspartate Amino Transferase 39 U/L (5-37); Blood Urea Nitrogen 19 mg/dL (9-16); Calcium 9.1 mg/dL (8.4-10.2); Carbon Dioxide 24 mmol/L (22-29); Chloride 109 mmol/L (96-108); Creatinine Clr Calc Pharmacy 177.0; Estimated Glomerular Filt Rate > 60; Potassium 3.9 mmol/L (3.3-5.1); Sodium 144 mmol/L (135-145); Total Protein 7.1 g/dL (6.5-8.0)
--- OUTSIDE RECORDS SUMMARY | 2025-04-27 15:15 | XMS_ITS | Clinical Summary ---
Author Organization [facility] Address [address] [place] [address] Care Team Providers Care Pbx Inspector Name Role Phone Rosa Sepulveda NP Primary Care Provider +1- [phone] Allergies Active Allergy Reactions Criticality Noted Date [...] A & B MEDICAID OUT OF STATE [facility] [place] [address] Advance Directives * Full Code (Latest Code Status on File) Date Activated Date Inactivated Comments 06/19/2019 11:45 AM 07/11/2019 11:50 AM Care Teams Pbx Inspector Relationship Specialty Start Date End Date Rosa Sepulveda NP [address] [place] [address] PCP - General 05/09/19
--- OUTSIDE RECORDS SUMMARY | 2025-04-27 15:15 | XMS_ITS | Encounter Summary ---
Author Organization [facility] Address [address] [place] [address] Care Team Providers Care Structural Analysis Engineer Name Role Phone Rosa Sepulveda NP Primary Care Provider +1- [phone] Encounter Details Date Type Department Care Team (Late st Contact Info) Description 07/08/2020 [facility] Plastic & Reconstructive Surgery [address] [place] [address] David Corrales MD [address] [place] [address] Social History Tobacco Use Types Packs/Day Years [...] on filedocumented in this encounter Care Teams Structural Analysis Engineer Relationship Specialty Start Date End Date Rosa Sepulveda NP [address] [place] [address] PCP - General 05/09/19 documented as of this encounter
--- OUTSIDE RECORDS SUMMARY | 2025-04-27 15:16 | XMS_ITS | Encounter Summary ---
Author Organization [facility] Address [address] [place] [address] Care Team Providers Care Patient Case Manager Name Role Phone Rosa Sepulveda NP Primary Care Provider +1- [phone] Encounter Details Date Type Department Care Team ([facility] st Contact Info) Description 07/23/2020 Scanned Document [facility] Plastic & Reconstructive Surgery [address] [place] [id number] David Corrales MD [address] [place] [address] Social History Tobacco Use Types Packs/Day Years [...] on filedocumented in this encounter Care Teams Patient Case Manager Relationship Specialty Start Date End Date Rosa Sepulveda NP [address] [place] [address] PCP - General 05/09/19 documented as of this encounter
--- OUTSIDE RECORDS SUMMARY | 2025-04-27 15:17 | XMS_ITS | Encounter Summary ---
Author Organization [facility] Address [address] [place] [address] Care Team Providers Care Garment Sewer Hand Name Role Phone Rosa Sepulveda BLADE BONER Primary Care Provider +1- [phone] Encounter Details Date Type Department Care Team (Late st Contact Info) Description 04/11/2020 Scanned Document [facility] Plastic & Reconstructive Surgery [address] [place] [address] David Corrales MD [address] [place] [address] Social History Tobacco Use Types Packs/Day Years [...] on filedocumented in this encounter Care Teams Garment Sewer Hand Relationship Specialty Start Date End Date Rosa Sepulveda NP [address] [place] [address] PCP - General 05/09/19 documented as of this encounter
--- OUTSIDE RECORDS SUMMARY | 2025-04-27 15:17 | XMS_ITS | Encounter Summary ---
Author Organization [facility] Address [address] [place] [address] Care Team Providers Care Metal Machine Operator Name Role Phone Rosa Sepulveda CNC MILL PROGRAMMER Primary Care Provider +1- [phone] Encounter Details Date Type Department Care Team (Late st Contact Info) Description 04/11/2020 Scanned Document [facility] Plastic & Reconstructive Surgery [address] [place] [address] David Corrales MD [address] [place] [address] Social History Tobacco Use Types Packs/Day Years [...] on filedocumented in this encounter Care Teams Metal Machine Operator Relationship Specialty Start Date End Date Rosa Sepulveda NP [address] [place] [address] PCP - General 05/09/19 documented as of this encounter
--- OUTSIDE RECORDS SUMMARY | 2025-04-27 15:17 | XMS_ITS | Encounter Summary ---
Author Organization [facility] Address [address] [place] [address] Care Team Providers Care Multi Spindle Operator Name Role Phone Rosa Sepulveda NP Primary Care Provider +1- [phone] Encounter Details Date Type Department Care Team (Late st Contact Info) Description 07/17/2019 Scanned Document [facility] Plastic & Reconstructive Surgery [address] [place] [phone] David Corrales MD [address] [place] [address] Social History Tobacco Use Types Packs/Day Years [...] documented as of this encounter Care Teams Multi Spindle Operator Relationship Specialty Start Date End Date Rosa Sepulveda NP [address] [place] [address] PCP - General 05/09/19 documented as of this encounter
--- OUTSIDE RECORDS SUMMARY | 2025-04-27 15:17 | XMS_ITS | Clinical Summary ---
Author Organization [facility] Address [address] [place] [address] Phone Care Team Providers Care Engraver Seals Name Role Phone Physician, No Pcp Primary Care Provider Unavaila ble Allergies Active Allergy Reactions Criticality Noted Date Comments Acetaminophen 03/20/2022 Baclofen Hives Medium 06/20/2019 Diclofenac Sodium 02/08/2020 Topical,states steward skin off Lidocaine 03/20/2022 Topical cream Chaffee Unknown 02/21/2025 Hx lithium toxicity Metformin 03/20/2022 [...] Problem Noted Date Diagnosed Date Alcohol withdrawal ([facility] [place], [facility] V28) Depression 05/14/2022 Diabetes mellitus ([facility], [facility] V28) 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 Encounters Date Type Department Care Team Description 02/21/2025 10:38 PM EDT - 02/25/2025 10:49 AM EDT Hospital Encounter [facility] B [address] [place] [phone] Salvador Olaery MD Jones, Christopher, MD Rasul, Yar M, MD Pressure injury of skin of sacral region, unspecified injury stage (Primary Dx); Failure to thrive in adult; Falls; Alcohol withdrawal syndrome with complication ([facility] [place], [facility] V28) Discharge Disposition: Home-Health Care [facility] Last 3 Months Surgical History Surgery Date Site/Laterality Comments OTHER SURGICAL HISTORY PROCEDURE: [place] ANESTHESIA OPEN HIP JOINT PROCEDURE NOS Medical History Medical History Date Comments Anxiety DX:Anxiety PTSD (post-traumatic stress disorder) DX:PTSD (post-traumatic stress disorder) 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 [facility] Glucose POCT 91 70 - 100 mg/dL 02/25/2025 7:35 AM EDT [facility] Blood Capillary blood specimen / Unknown 02/25/2025 7:35 AM EDT 02/25/2025 7:36 AM EDT Alex Retana MD LAB POINT OF CARE TE ST DOCKED DEVICE UNSOLICITED RESULTS Final Result [facility] [address] [place] [address], [place] [phone] * (ABNORMAL) Basic metabolic panel (02/25/2025 6:24 AM EDT) Only the most recent of4 resultswithin the time period is included. [facility] Sodium 137 133 - 145 mmol/L LAB CHEMISTRY METHOD 02/25/2025 7:28 AM [facility] Potassium 3.6 3.5 - 5.5 mmol/L LAB CHEMISTRY METHOD 02/25/2025 7:28 AM EDT [facility] Chloride 104 96 - 110 mmol/L LAB CHEMISTRY METHOD 02/25/2025 7:28 AM T [facility] CO2 27 21 - 32 mmol/L LAB CHEMISTRY METHOD 02/25/2025 7:28 AM [facility] Anion Gap 6 3 - 11 LAB CHEMISTRY METHOD 02/25/2025 7:28 AM EDT [facility] Glucose 157(H) 70 - 100 mg/dL LAB CHEMISTRY METHOD 02/25/2025 7:28 AM EDT [facility] BUN 6 5 - 25 mg/dL LAB CHEMISTRY METHOD 02/25/2025 7:28 AM EDT [facility] Creatinine 0.62(L) 0.70 - 1.30 mg/dL LAB CHEMISTRY METHOD 02/25/2025 7:28 AM EDT [facility] eGFR 122 >=60 mL/min/1. 73m2 LAB CHEMISTRY METHOD 02/25/2025 7:28 AM EDT [facility] Comment:Calculation based on the Chronic Kidney Disease Epidemiology Collaboration (CKD-EPI) equation refit without adjustment for race. BUN/Creatinine Ratio 9.7 LAB CHEMISTRY METHOD 02/25/2025 7:28 AM EDT [facility] Calcium 8.9 8.5 - 10.5 mg/dL LAB CHEMISTRY METHOD 02/25/2025 7:28 AM EDT [facility] Blood Venous blood specimen / Unknown Venipuncture / Unknown 02/25/2025 6:24 AM EDT 02/25/2025 6:49 AM EDT us Alex Retana MD LAB BLOOD ORDERABLES Final Resul t [facility] [address] [place] [address], * (ABNORMAL) CBC auto differential (02/25/2025 6:23 AM EDT) Only the most recent of5 resultswithin the time period is included. WBC 4.9 4.8 - 10.8 K/mcL LAB HEMETOLOGY METHOD 02/25/2025 7:15 AM EDT [facility] RBC 3.70(L) 4.50 - 5.50 M/[facility] LAB HEMETOLOGY METHOD 02/25/2025 7:15 AM EDT [facility] Hemoglobin 11.3(L) 13.5 - 17.5 g/dL LAB HEMETOLOGY METHOD 02/25/2025 7:15 AM [facility] Hematocrit 33.9(L) 42.0 - 54.0 % LAB HEMETOLOGY METHOD 02/25/2025 7:15 AM [facility] MCV 91.6 79.0 - 98.0 FL LAB HEMETOLOGY METHOD 02/25/2025 7:15 AM [facility] MCH 30.5 27.0 - 32.0 pcg LAB HEMETOLOGY METHOD 02/25/2025 7:15 AM [facility] MCHC 33.3 32.0 - 37.0 g/dL LAB HEMETOLOGY METHOD 02/25/2025 7:15 AM [facility] RDW 16.9(H) 11.0 - 15.0 % LAB HEMETOLOGY METHOD 02/25/2025 7:15 AM [facility] Platelets 112(L) 130 - 400 K/mcL LAB HEMETOLOGY METHOD 02/25/2025 7:15 AM [facility] MPV 12.3(H) 7.0 - 11.0 FL LAB HEMETOLOGY METHOD 02/25/2025 7:15 AM [facility] NRBC 0.0 <1.0 % LAB HEMETOLOGY METHOD 02/25/2025 7:15 AM [facility] NRBC Absolute 0.00 <0.10 K/mcL LAB HEMETOLOGY METHOD 02/25/2025 7:15 AM [facility] Neutrophils Relative 81.6 % LAB HEMETOLOGY METHOD 02/25/2025 7:15 AM [facility] Lymphocytes Relative 11.3 % LAB HEMETOLOGY METHOD 02/25/2025 7:15 AM [facility] Monocytes Relative 4.9 % LAB HEMETOLOGY METHOD 02/25/2025 7:15 AM EDT [facility] Eosinophils Relative 1.4 % LAB HEMETOLOGY METHOD 02/25/2025 7:15 AM EDT [facility] Basophils Relative 0.4 % LAB HEMETOLOGY METHOD 02/25/2025 7:15 AM EDT [facility] Immature Granulocytes Relative 0.4 % LAB HEMETOLOGY METHOD 02/25/2025 7:15 AM EDT [facility] Neutrophils Absolute 4.03 1.50 - 7.00 K/mcL LAB HEMETOLOGY METHOD 02/25/2025 7:15 AM EDT [facility] Lymphocytes Absolute 0.56(L) 1.00 - 5.00 K/mcL LAB HEMETOLOGY METHOD 02/25/2025 7:15 AM EDT [facility] Monocytes Absolute 0.24 0.20 - 1.00 K/mcL LAB HEMETOLOGY METHOD 02/25/2025 7:15 AM EDT [facility] Eosinophils Absolute 0.07 0.00 - 0.50 K/mcL LAB HEMETOLOGY METHOD 02/25/2025 7:15 AM EDT [facility] Basophils Absolute 0.02 0.00 - 0.20 K/mcL LAB HEMETOLOGY METHOD 02/25/2025 7:15 AM EDT [facility] Immature Granulocytes Absolute 0.02 0.00 - 0.03 K/mcL LAB HEMETOLOGY METHOD 02/25/2025 7:15 AM EDT [facility] Blood Venous blood specimen / Unknown Venipuncture / Unknown 02/25/2025 6:23 AM EDT 02/25/2025 6:48 AM EDT us Alex Retana MD LAB BLOOD ORDERABLES Final Resul t [facility] [address] [place] [address], [place] [phone] * Culture blood (02/22/2025 8:45 AM EDT) Only the most recent of2 resultswithin the time period is included. Culture, Blood No growth at 5 days LAB MICROBIOLOGY METHOD 02/27/2025 9:01 AM EDT [facility] Blood Venous blood specimen / Unknown Venipuncture / Unknown 02/22/2025 8:45 AM EDT 02/22/2025 8:49 AM EDT us David Alexander MD LAB MICROBIOLOGY - GENERAL ORDERABLES Final Result [facility] [address] [place] [address], [place] [phone] * (ABNORMAL) Lactate (02/22/2025 5:03 AM EDT) Lactate 2.3(H) 0.4 - 2.0 mmol/L LAB CHEMISTRY METHOD 02/22/2025 5:37 AM EDT [facility] Blood Venous blood specimen / Unknown Venipuncture / Unknown 02/22/2025 5:03 AM EDT 02/22/2025 5:08 AM EDT us David Alexander MD LAB BLOOD ORDERABLES Final Result [facility] [address] [place] [address], [place] [phone] * (ABNORMAL) Lactate, with reflex (02/22/2025 2:17 AM EDT) Only the most recent of2 resultswithin the time period is included. LACTIC ACID 3.3(HH) 0.4 - 2.0 mmol/L LAB CHEMISTRY METHOD 02/22/2025 3:11 AM EDT [facility] Blood Venous blood specimen / Unknown Venipuncture / Unknown 02/22/2025 2:17 AM EDT 02/22/2025 2:22 AM EDT Salvador Oleary MD LAB BLOOD ORDERABLES Final Result [facility] [address] [place] [address], [place] [phone] * CT Chest/Abdomen/Pelvis w Contrast (02/22/2025 12:46 [...] reflex microscopic (02/22/2025 12:09 AM EDT) Specific [place] Urine 1.022 1.003 - 1.030 LAB URINALYSIS - AUTOMATED METHOD 02/22/2025 12:53 AM [facility] pH, Urine 6.0 5.0 - 8.0 pH LAB URINALYSIS - AUTOMATED METHOD 02/22/2025 12:53 AM [facility] Leukocytes, Urine Negative Negative LAB URINALYSIS - AUTOMATED METHOD 02/22/2025 12:53 AM [facility] Nitrite, Urine Negative Negative LAB URINALYSIS - AUTOMATED METHOD 02/22/2025 12:53 AM [facility] Protein, Urine 30(A) <=Trace mg/dL LAB URINALYSIS - AUTOMATED METHOD 02/22/2025 12:53 AM [facility] Glucose, Urine Negative Negative mg/dL LAB URINALYSIS - AUTOMATED METHOD 02/22/2025 12:53 AM [facility] Ketones, Urine Trace(A) Negative mg/dL LAB URINALYSIS - AUTOMATED METHOD 02/22/2025 12:53 AM [facility] Urobilinogen, Urine 0.2 0.2 - 1.0 mg/dL LAB URINALYSIS - AUTOMATED METHOD 02/22/2025 12:53 AM [facility] Bilirubin, Urine Negative Negative LAB URINALYSIS - AUTOMATED METHOD 02/22/2025 12:53 AM [facility] Blood, Urine Negative Negative LAB URINALYSIS - AUTOMATED METHOD 02/22/2025 12:53 AM [facility] RBC, Urine 2.9 0 - 4 /HPF LAB URINALYSIS - AUTOMATED METHOD 02/22/2025 12:53 AM [facility] WBC, Urine 3.2 0 - 4 /HPF LAB URINALYSIS - AUTOMATED METHOD 02/22/2025 12:53 AM [facility] Squamous Epithelial, Urine 29 0 - 60 /LPF LAB URINALYSIS - AUTOMATED METHOD 02/22/2025 12:53 AM EDT [facility] Bacteria, Urine Negative Negative /HPF LAB URINALYSIS - AUTOMATED METHOD 02/22/2025 12:53 AM EDT [facility] Hyaline Casts, Urine 2.8 0 - 3 /LPF LAB URINALYSIS - AUTOMATED METHOD 02/22/2025 12:53 AM [facility] Urine Urine specimen obtained by clean catch procedure / Unknown Non-blood Collection / Unknown 02/22/2025 12:09 AM EDT 02/22/2025 12:46 AM EDT us Salvador Oleary MD LAB URINE ORDERABLES Final Result [facility] [address] [place] [address], [place] [phone] * (ABNORMAL) Drug abuse screen 8a panel, urine (02/22/2025 12:09 AM EDT) Amphetamine Screen, Ur Negative Negative LAB CHEMISTRY METHOD 5 1:23 AM [facility] Comment:Certain OTC medicati ons containing ephedrine, phenylephrine, pseudoephedrine and phenylpropanolamine can cause false positive results. Barbiturate Screen, Ur Positive(A ) Negative LAB CHEMISTRY METHOD 5 1:23 AM [facility] Benzodiazepine Screen, Ur Negative Negative LAB CHEMISTRY METHOD 5 1:23 AM [facility] Cocaine Screen, Ur Negative Negative LAB CHEMISTRY METHOD 5 1:23 AM [facility] Opiate Screen, Ur Negative Negative LAB CHEMISTRY METHOD 5 1:23 AM [facility] Cannabinoid (THC) Screen, Ur Negative Negative LAB CHEMISTRY METHOD 5 1:23 AM [facility] Comment:Specimens from patie nts taking pantoprazole sodium (Protonix) have been shown to produce false positive results. Oxycodone Screen, Ur Negative Negative LAB CHEMISTRY METHOD 1:23 AM EDT [facility] Fentanyl, Ur Negative Negative LAB CHEMISTRY METHOD 1:23 AM EDT [facility] Urine Urine specimen obtained by clean catch procedure / Unknown Non-blood Collection / Unknown 02/22/2025 12:09 AM EDT 02/22/2025 12:46 AM EDT [facility] - 02/22/2025 1:23 AM EDT [...] Oleary MD LAB URINE ORDERABLES Final Result [facility] [address] [place] [address], [place] [phone] * Buprenorphine screen, urine (02/22/2025 12:09 AM EDT) Buprenorphine Screen Urine Negative Negative LAB CHEMISTRY METHOD 02/22/2025 1:23 AM EDT [facility] Urine Urine specimen obtained by clean catch procedure / Unknown Non-blood Collection / Unknown 02/22/2025 12:09 AM EDT 02/22/2025 12:46 AM EDT [facility] - 02/22/2025 1:23 AM EDT Assay cutoff 5 ng/mL Semi-quantitative assay for screening purposes only. Unconfirmed screening result should not be used for non-medical purposes. *ALTERNATE METHOD CONFIRMATION DONE UPON REQUEST ONLY* Salvador Oleary MD LAB URINE ORDERABLES Final Result Performing Organization Address [facility] Co de Phone Number [facility] [address] [place] [address], [place] [phone] * Methadone, urine (02/22/2025 12:09 AM EDT) Methadone Screen, Urine Negative Negative LAB CHEMISTRY METHOD 02/22/2025 1:23 AM EDT [facility] Comment: Assay cutoff 300 [...] URINE ORDERABLES Final Result Performing Organization Address [facility] Co de Phone Number [facility] [address] [place] [address], [place] [phone] * Phencyclidine, urine (02/22/2025 12:09 AM EDT) PCP Scrn, Ur Negative Negative LAB CHEMISTRY METHOD 02/22/2025 1:23 AM EDT [facility] Comment: Assay cutoff 25 [...] URINE ORDERABLES Final Result Performing Organization Address [facility]/ZIP Co de Phone Number [facility] [address] [place] [address], [place] [phone] * ECG 12 lead (02/21/2025 11:59 PM EDT) Ventricular Rate ECG 105 BPM GEMUSE Atrial Rate 105 BPM GEMUSE P-R Interval 138 ms GEMUSE QRS Duration 76 ms GEMUSE Q-T Interval 344 ms GEMUSE QTc 454 ms GEMUSE P Wave [place] 31 degrees GEMUSE R [place] -21 degrees GEMUSE T [place] 0 degrees GEMUSE ECG Interpretation Sinus tachycardia Possible Inferior infarct (cited on or before 02-MAR-2022) Possible Anterior infarct , age undetermined Abnormal ECG When compared with ECG of 08-APR-2024 23:15, Borderline criteria for Anterior infarct are now Present Inverted T waves have replaced nonspecific T wave abnormality in Inferior leads Confirmed by Roro NOYOLA JOHN ([id number]) on 02/22/2025 12:54:15 PM GEMUSE 02/21/2025 11:5 [...] Signed Date: 02/22/2025 08:47 ET Workstation ID: [id number] Transcribed By: Self Edit Transcribed Date: 02/22/2025 [...] Signed Date: 02/22/2025 08:47 ET Workstation ID: [id number] Transcribed By: Self Edit Transcribed Date: 02/22/2025 [...] C-reactive protein (02/21/2025 11:01 PM EDT) Pathologist [facility] C-Reactive Protein 0.34 <=0.50 mg/dL LAB CHEMISTRY METHOD 02/22/2025 4:20 AM EDT [facility] Blood Venous blood specimen / Unknown Venipuncture / Unknown 02/21/2025 11:01 PM EDT 02/21/2025 11:32 PM EDT David Alexander MD LAB BLOOD ORDERABLES Final Result Performing Organization Address [facility]/ZIP Co de Phone Number [facility] [address] [place] [address], [place] [phone] * (ABNORMAL) Magnesium (02/21/2025 11:01 PM EDT) [facility] Magnesium 1.3(L) 1.9 - 2.6 mg/dL LAB CHEMISTRY METHOD 02/22/2025 12:28 AM EDT [facility] Comment:Hemolysis present Blood Venous blood specimen / Unknown Venipuncture / Unknown 02/21/2025 11:01 PM EDT 02/21/2025 11:32 PM EDT Salvador Oleary MD LAB BLOOD ORDERABLES Final Result Performing Organization Address [facility]/ZIP Co de Phone Number [facility] [address] [place] [address], [place] [phone] * Lipase (02/21/2025 11:01 PM EDT) Pathologist [facility] Lipase 21 13 - 75 unit/L LAB CHEMISTRY METHOD 02/22/2025 12:28 AM EDT [facility] Blood Venous blood specimen / Unknown Venipuncture / Unknown 02/21/2025 11:01 PM EDT 02/21/2025 11:32 PM EDT Salvador Oleary MD LAB BLOOD ORDERABLES Final Result [facility] [address] [place] [address], [place] [phone] * (ABNORMAL) Ethanol (02/21/2025 11:01 PM EDT) Ethanol Level 79(H) 0 - 10 mg/dL LAB CHEMISTRY METHOD 02/22/2025 12:28 AM EDT [facility] Blood Venous blood specimen / Unknown Venipuncture / Unknown 02/21/2025 11:01 PM EDT 02/21/2025 11:32 PM EDT Salvador Oleary MD LAB BLOOD ORDERABLES Final Result [facility] [address] [place] [address], [place] [phone] * (ABNORMAL) Acetaminophen level (02/21/2025 11:01 PM EDT) Acetaminophen Level <2.0(L) 10.0 - 30.0 mcg/mL LAB CHEMISTRY METHOD 02/22/2025 12:28 AM EDT [facility] Blood Venous blood specimen / Unknown Venipuncture / Unknown 02/21/2025 11:01 PM EDT 02/21/2025 11:32 PM EDT Salvador Oleary MD LAB BLOOD ORDERABLES Final Result [facility] [address] [place] [address], [place] [phone] * (ABNORMAL) Salicylate level (02/21/2025 11:01 PM EDT) Salicylate Level <1.7(L) 2.0 - 29.0 mg/dL LAB CHEMISTRY METHOD 02/22/2025 12:28 AM [facility] Blood Venous blood specimen / Unknown Venipuncture / Unknown 02/21/2025 11:01 PM EDT 02/21/2025 11:32 PM EDT us Salvador Oleary MD LAB BLOOD ORDERABLES Final Result [facility] [address] [place] [address], [place] [phone] * (ABNORMAL) Comprehensive metabolic panel (02/21/2025 11:01 PM EDT) Sodium 142 133 - 145 mmol/L LAB CHEMISTRY METHOD 02/22/2025 12:28 AM [facility] Potassium 3.4(L) 3.5 - 5.5 mmol/L LAB CHEMISTRY METHOD 02/22/2025 12:28 AM [facility] Comment:Hemolysis present Chloride 103 96 - 110 mmol/L LAB CHEMISTRY METHOD 02/22/2025 12:28 AM [facility] CO2 25 21 - 32 mmol/L LAB CHEMISTRY METHOD 02/22/2025 12:28 AM [facility] Anion Gap 14(H) 3 - 11 LAB CHEMISTRY METHOD 02/22/2025 12:28 AM [facility] Glucose 118(H) 70 - 100 mg/dL LAB CHEMISTRY METHOD 02/22/2025 12:28 AM [facility] BUN 7 5 - 25 mg/dL LAB CHEMISTRY METHOD 02/22/2025 12:28 AM [facility] Creatinine 0.67(L) 0.70 - 1.30 mg/dL LAB CHEMISTRY METHOD 02/22/2025 12:28 AM [facility] eGFR 120 >=60 mL/min/1. 73m2 LAB CHEMISTRY METHOD 02/22/2025 12:28 AM [facility] Comment:Calculation based on the Chronic Kidney Disease Epidemiology Collaboration (CKD-EPI) equation refit without adjustment for race. BUN/Creatinine Ratio 10.4 LAB CHEMISTRY METHOD 02/22/2025 12:28 AM [facility] Calcium 8.9 8.5 - 10.5 mg/dL LAB CHEMISTRY METHOD 02/22/2025 12:28 AM [facility] AST (SGOT) 55(H) 10 - 42 unit/L LAB CHEMISTRY METHOD 02/22/2025 12:28 AM [facility] Comment:Hemolysis present ALT (SGPT) 60 10 - 60 unit/L LAB CHEMISTRY METHOD 02/22/2025 12:28 AM [facility] Alkaline Phosphatase 115 42 - 121 unit/L LAB CHEMISTRY METHOD 02/22/2025 12:28 AM [facility] Total Protein 6.8 6.0 - 8.0 g/dL LAB CHEMISTRY METHOD 02/22/2025 12:28 AM [facility] Albumin 3.5 3.2 - 5.0 g/dL LAB CHEMISTRY METHOD 02/22/2025 12:28 AM [facility] Total Bilirubin 0.3 0.0 - 1.4 mg/dL LAB CHEMISTRY METHOD 02/22/2025 12:28 AM [facility] Blood Venous blood specimen / Unknown Venipuncture / Unknown 02/21/2025 11:01 PM EDT 02/21/2025 11:32 PM EDT us Salvador Oleary MD LAB BLOOD ORDERABLES Final Result [facility] [address] [place] [address], [place] [phone] from Last 3 Months Insurance MEDICARE MEDICAID [...] currently active code status orders. Care Teams Engraver Seals Relationship Specialty Start Date End Date Physician, No Pcp PCP - General 02/22/25
--- OUTSIDE RECORDS SUMMARY | 2025-04-27 15:18 | XMS_ITS | Encounter Summary ---
Author Organization [facility] Address [address] [address] Phone Care Team Providers Care Loan Servicing Representative Name Role Phone Rosa Sepulveda NP Primary Care Provider [phone]- [phone] Encounter Details Date Type Department Care Team ([facility] st Contact Info) Description 05/27/2020 Procedure Pass OR Admitting Dept - Virtual Department [address] [place] [address] Social History Tobacco Use Types Packs/Day Years [...] on filedocumented in this encounter Care Teams Loan Servicing Representative Relationship Specialty Start Date End Date Rosa Sepulveda NP [address] [place] [id number] PCP - General Family Medicine 09/13/19 documented as of this encounter Additional Source Comments The information contained in this document represents components of the legal health record. It is not the complete legal health record.[facility]
--- OUTSIDE RECORDS SUMMARY | 2025-04-27 15:18 | XMS_ITS | Encounter Summary ---
Author Organization [facility] Address [address] [address] Phone Care Team Providers Care Material Disposition Inspector Name Role Phone Rosa Sepulveda NP Primary Care Provider [phone]- [phone] Encounter Details Date Type Department Care Team ([facility] st Contact Info) Description 05/27/2020 Procedure Pass OR Admitting Dept - Virtual Department [address] [place] [address] Social History Tobacco Use Types Packs/Day Years [...] on filedocumented in this encounter Care Teams Material Disposition Inspector Relationship Specialty Start Date End Date Rosa Sepulveda NP [address] [place] [phone] PCP - General Family Medicine 09/13/19 documented as of this encounter Additional Source Comments The information contained in this document represents components of the legal health record. It is not the complete legal health record.[facility]
--- OUTSIDE RECORDS SUMMARY | 2025-04-27 15:23 | XMS_ITS | Clinical Summary ---
Author Organization [facility] Address [address] [place] [id number] Phone Care Team Providers Care Egyptologist Name Role Phone Rosa Sepulveda NP Primary Care Provider +1- [phone] Allergies Active Allergy Reactions Criticality Noted Date Comments Baclofen Hives Medium 06/20/2019 Lidocaine 04/02/2020 Topical,states steward his skin off Kjn-Kekagtxzxur-Wyzihhxrbyu en 09/13/2019 Diclofenac Sodium 02/08/2020 Topical,states steward [...] years) (1 of 2 - PCV) 2002 INFLUENZA VACCINE (#1) 2025 COVID-19 VACCINE (4 - 2024-2 6 season) 2025 07/29/2021, 01/16/2021, 12/26/2020 HEPATITIS A VACCINES Aged [...] file Insurance MEDICARE PART A & B [facility] MEDICARE PART A & B [place] B [place] & [place] & B [facility] MEDICARE PART A & B HEALTH MEDICARE PART A & B HEALTH Care Teams Egyptologist Relationship Specialty Start Date End Date Rosa Sepulveda NP [address] [place] [phone] PCP - General Family Medicine 09/13/19 Additional Source Comments The information contained in this document represents components of the legal health record. It is not the complete legal health record.[facility]
--- NOTE | 2025-04-27 15:54 | ED.GENADULT ---
HPI - General Adult General Chief complaint: General Medical Stated complaint: L FOOT PAIN/SWELLING,?INF,DIARRHEA PER EMS Time Seen by Provider: 04/27/25 15:51 Source: patient, EMS and old records reviewed Mode of arrival: EMS Limitations: no limitations History of Present Illness ED Provider: BIBIANA HPI narrative: 40 yo male with PMH of ETOH use disorder, bipolar, PTSD, UGIB, neuropathy, R BKA, GBS who was just admitted here 04/14 to 04/18 for L leg cellulitis and plan for elective amputation of L 2nd/3rd toes. He reports he is taking his daptomycin daily via R PICC line as planned last dose 05/26. He comes in with 6 + loose stools a day but no abdominal pain that has been present since last admit. He denies GIB symptoms.He notes two days ago he started to see increased swelling and redness to the L leg with pain and swelling. He states he has been doing what he was told with taking care of leg MD complaint: worsening L leg rash Onset (ago): day(s) (2) Location: left and lower extremity Radiation: non-radiation Severity: moderate Quality: aching Pain Consistency: constant Relieving factors: immobilization Exacerbating factors: movement Associated symptoms: fever/chills, loss of appetite and malaise Treatments prior to arrival: other Related Data Home Medications ?Medication ?Instructions ?Recorded ?Confirmed hydroxyzine HCl 50 mg tablet 50 mg PO TID 04/14/25 04/27/25 omeprazole 40 mg capsule,delayed 40 mg PO BID@0630,1630 04/14/25 04/27/25 release pregabalin 225 mg capsule 225 mg PO BID 04/14/25 04/27/25 quetiapine 300 mg tablet 300 mg PO BEDTIME 04/14/25 04/27/25 sertraline 100 mg tablet 150 mg PO DAILY 04/14/25 04/27/25 daptomycin 500 mg intravenous 500 mg IV DAILY 04/27/25 04/27/25 solution Previous Rx's ?Medication ?Instructions ?Recorded loperamide 2 mg capsule 2 mg PO Q6H PRN diarrhea #30 caps 04/18/25 (Anti-Diarrheal (loperamide)) Allergies Allergy/AdvReac Type Severity Reaction Status Date / Time baclofen Allergy Hives Verified 04/27/25 14:26 escitalopram (From Lexapro) Allergy Vomiting Verified 04/27/25 14:26 lithium Allergy Unresponsiv Verified 04/27/25 14:26 e metformin Allergy Unknown Verified 04/27/25 14:26 morphine Allergy Hives Verified 04/27/25 14:26 sulfamethoxazole (From Allergy Hives Verified 04/27/25 14:26 Bactrim) tramadol Allergy Hives Verified 04/27/25 14:26 trimethoprim (From Bactrim) Allergy Hives Verified 04/27/25 14:26 Review of Systems Review of Systems: Constitutional : No Fever, No Chills ENT/Mouth : No sore throat, No Rhinorrhea Eyes: No Eye Pain, No Swelling, No Redness Cardiovascular : No Chest Pain, No SOB Respiratory : No Cough, No Sputum Gastrointestinal : No Nausea, No Vomiting, pos Diarrhea, No abdominal Pain Genitourinary : No Dysuria, No Hematuria Musculoskeletal : No joint pain, No Myalgias, No Joint Swelling Skin : No Skin Lesions, positive skin rash Neuro : No Weakness, No Numbness, No Headache All other systems reviewed and are negative [facility] Past Medical History Attestation statement: The following information was validated with the patient. Source: old records reviewed Medical History Sacral decubitus ulcer Osteomyelitis of foot Decubitus ulcer Amputation of one or more toes Aftercare following right hip joint replacement surgery Bipolar disorder PTSD (post-traumatic stress disorder) Sacral decubitus ulcer Peripheral neuropathy Non-insulin dependent type 2 diabetes mellitus Guillain-[place] Surgical History History of esophagogastroduodenoscopy (EGD) Hx of laminectomy History of total hip replacement Hx of right BKA Social History Social History Household Members: None Housing: Condominium Are you a primary medicare interviewer to a significant other at home: No Do you presently have visiting nurse or other home services: Yes (FOR[employer] 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 twice daily, every day) Alcohol intake: current Alcohol intake frequency: former alcohol drinker Alcohol type: hard liquor Comment: stand pivot to luz marina avila Patient Tobacco Use Status: Current everyday Tobacco user Tobacco use type: Cigarette Cigarette Packs Per Day: 1 Cigarettes Per Day: 3 Years Smoked: 29 years Second Hand Smoke Exposure: No Use of substances other than those prescribed or required for medical reasons: Yes Substance Use Type: Crack/Cocaine Substance Use Frequency: Occasionally Advance Directives: No Advance Directives Information Provided: Yes service: No Physical Exam ED Vital Signs: Vital Signs - 24 hr 04/27/25 14:23 04/27/25 16:00 04/27/25 18:00 Temperature 99.3 F 97.8 F 97.3 F Pulse Rate 95 72 76 Respiratory Rate 18 16 16 Blood Pressure 143/75 H 142/82 H 136/85 Pulse Oximetry 96 98 97 Oxygen Delivery Method Room Air Room Air Room Air BMI result Body Mass Index 39.7 Appearance: Alert. Oriented X3. No acute distress. Eyes: Pupils equal, round and reactive to light. ENT: Pharynx normal. Neck: Normal inspection. Neck supple. CVS: Normal heart rate and rhythm. Pulses normal. Respiratory: No respiratory distress. Breath sounds normal. Abdomen: Soft and nontender. Skin: Skin warm and dry. Normal skin color. Normal skin turgor. Extremities: L left pitting edema of the ankle, redness along entire foot along with L dorsum foot and top of foot, he is NV intact has ttp but no crepitus and compartments are soft and compressible Neuro: Oriented X 3. No motor deficit. No sensory deficit. CN2-12 intact Medications Administered Generic Name Dose Route Start Last Admin Trade Name Freq PRN Reason Stop Dose Admin Acetaminophen 650 mg 04/27/25 19:04 04/27/25 20:02 Acetaminophen 325 Mg Tablet PO 650 mg Q6H PRN Administration Pain, Mild 1-3,fever,headache Sodium Chloride 1,000 mls @ 100 mls/hr 04/27/25 19:15 04/27/25 19:39 Ns IVCONT 100 mls/hr .Q10H CHERISE Administration Piperacillin Sod/Tazobactam 100 mls @ 200 mls/hr 04/27/25 22:00 04/27/25 22:15 Sod 4.5 gm/ Sodium Chloride IV Infused Q6H CHERISE Infusion Insulin Human Lispro 0 unit 04/27/25 21:00 04/27/25 21:29 Insulin Lispro 100 Unit/Ml 3 Ml Vial SUBCUT 2 unit QIDACHS CHERISE Administration Protocol Oxycodone HCl 5 mg 04/27/25 19:36 04/27/25 20:02 Oxycodone Hcl Immed Release 5 Mg Tablet PO 5 mg Q6H PRN Administration Pain, Moderate(Pain Scale 4-6) Senna 17.2 mg 04/27/25 21:00 04/27/25 21:48 Sennosides 8.6 Mg Tablet PO Not Given BEDTIME CHERISE Discontinued Medications Generic Name Dose Route Start Last Admin Trade Name Jake PRN Reason Stop Dose Admin Hydromorphone HCl 1 mg 04/27/25 16:11 04/27/25 16:22 Hydromorphone Hcl 1 Mg/Ml Syringe IVPUSH 04/27/25 16:12 1 mg ONCE ONE Administration Protocol Hydromorphone HCl 1 mg 04/27/25 18:30 04/27/25 18:34 Hydromorphone Hcl 1 Mg/Ml Syringe IVPUSH 04/27/25 18:31 1 mg ONCE ONE Administration Protocol Vancomycin HCl 2,000 mg in 500 mls @ 250 mls/hr 04/27/25 16:09 04/27/25 18:35 Vancomycin/Ns IV 04/27/25 18:08 Infused ONCE ONE Infusion Piperacillin Sod/Tazobactam 50 mls @ 100 mls/hr 04/27/25 16:09 04/27/25 17:16 Sod 3.375 gm/ Sodium Chloride IV 04/27/25 16:38 Infused ONCE ONE Infusion Ketorolac Tromethamine 15 mg 04/27/25 16:09 04/27/25 16:21 Ketorolac Tromethamine 15 Mg/Ml Vial IVPUSH 04/27/25 16:10 15 mg ONCE ONE Administration Medical Decision Making Medical Decision Making [facility] Narrative: 40 yo male with PMH of ETOH use disorder, bipolar, PTSD, UGIB, neuropathy, R BKA, GBS now here with c/o L leg cellulitis that is worsening with fevers and chills. At this time NV intact will obtain basic labs, cultures, DVT study, add on vanco and zosyn, IV pain medications, planned admit. No signs of nec fasc no signs of compartment syndrome if he has BM will obtain c diff study Differential Diagnosis Differential Diagnoses: The differential diagnosis associated with the presentation includes cellulitis, DVT, osteo Admission/Observation Consideration of admission/observation: Escalation of care including admission/observation considered admit for additional IV abx Consult Healthcare Provider Management of the patient was discussed with: Hospitalist (will admit for further workup) Lab Data MDM Lab Attestation statement: I reviewed the patient's lab results. 04/27/25 14:48 04/27/25 14:48 Labs: Lab Results 04/27/25 04/27/25 Range/Units 14:48 16:33 WBC 10.1 (4.8-10.8) X10*3/uL RBC 4.36 L (4.60-5.80) X10*6/uL Hgb 12.0 L (14.0-18.0) g/dl Hct 35.4 L (42.0-52.0) % MCV 81.2 (80.0-98.0) fL MCH 27.5 (27.0-33.0) pg MCHC 33.9 (31.0-36.0) g/dl RDW 14.5 (11.0-16.0) % Plt Count 282 (160-400) X10*3/uL MPV 11.0 (9.4-12.4) fL Immature Gran % (Auto) 0.3 (0.0-0.4) % Neut % (Auto) 69.2 (45-73) % Lymph % (Auto) 22.7 (20-40) % [place] % (Auto) 5.1 (2-11) % Eos % (Auto) 2.3 (0-4) % Baso % (Auto) 0.4 (0-2) % Lymph # (Auto) 2.3 (1.2-4.9) X10*3/uL [place] # (Auto) 0.5 (0.1-1.2) X10*3/uL Eos # (Auto) 0.2 (0.0-0.4) X10*3/uL Baso # (Auto) 0.0 (0.0-0.2) X10*3/uL Abs Immat Gran (auto) 0.03 (0.00-0.03) X10*3/uL Absolute Neuts (auto) 7.0 (2.0-8.3) x10*3/uL Absolute Nucleated RBC 0.000 (0.0-0.012) X10*3/uL Nucleated RBC % (auto) 0.0 (0.0-0.2) /100WBC ESR 12 (0-15) MM/HR Sodium 144 (135-145) mmol/L Potassium 3.9 (3.3-5.1) mmol/L Chloride 109 H (96-108) mmol/L Carbon Dioxide 24 (22-29) mmol/L Anion Gap 15 (12-20) BUN 19 H (9-16) mg/dL Creatinine 0.68 (0.5-1.4) mg/dL Estim Creat Clear Calc 177.0 Estimated GFR > 60 Random Glucose 94 (60-115) mg/dL Lactic Acid 1.6 (0.5-2.0) mmol/L Calcium 9.1 (8.4-10.2) mg/dL Total Bilirubin 0.5 (0.0-1.0) mg/dL AST 39 H (5-37) U/L ALT 41 H (0-40) U/L Alkaline Phosphatase 101 (39-117) U/L Total Creatine Kinase 90 (38-174) U/L C-Reactive Protein 0.48 (< or = 0.50) mg/dL Total Protein 7.1 (6.5-8.0) g/dL Albumin 4.3 (3.5-5.0) g/dL Independent Interpretation I performed an independent interpretation of an: EKG and Ultrasound (no DVT) Interpretation: Rate: 80 Rhythm: NSR Williamson: left Normal P waves. Normal MARIANNE. Normal QRS complex. ST T wave : no ERIC, flat t waves anterior leads qTC: 447 prior studies: no acute ischemia The study has been interpreted contemporaneously by me. . Radiology Impression Discussion of test interpretation with radiology: I have reviewed the radiologist's reading. Independent Historian Clinical information obtained from an independent historian. History obtained from or confirmed by: EMS External Record Review External record reviewed: Outpatient record Discharge Plan Discharge Clinical Impression: Cellulitis Qualifiers: Site of cellulitis: extremity Site of cellulitis of extremity: lower extremity Laterality: left Qualified Code(s): L03.116 - Cellulitis of left lower limb Patient Disposition: Admitted As Inpatient Interventions: Admission Worksheet (ED) Last Done: 04/27/25 21:25 Discharge Date/Time: 04/27/25 22:31
[2025-04-27 16:00] VITALS: BP 142/82; PULSE 72; RESP 16; TEMP 36.6; O2SAT 98
[2025-04-27] MEDS: vancomycin/NS 2,000 MG/500 ML PLAST..BAG 250 MG IV (16:35)
--- NOTE | 2025-04-27 16:50 | PC.NURSE ---
Pt BIBA from home for c/o of increased swelling/redness to LLE. Reports being on IV abx via PICC line at home but feeling s/s have been worsening. A/O x 3, reports pain 9/10 to LLE. Chronic sacral wound noted, no drainage or discharge. Placed on bedside monitor. Labs/EKG obtained.
[2025-04-27 18:00] VITALS: BP 136/85; PULSE 76; RESP 16; TEMP 36.3; O2SAT 97
--- NOTE | 2025-04-27 19:06 | P.HPHOSP_ITS ---
History of Present Illness Date of Service: 04/27/25 Attending physician on admission: Pita Melgar Chief Complaint: LLE pain and swelling Patient is a 40-year-old male currently living alone and disabled/wheelchair-bound with history of right [id number] amputation secondary to diabetes, current NIDDM, PVD, GIB, chronic sacral wound with OM, CDIFF 12/2024, peripheral neuropathy, GIB, bipolar depression, PTSD, alcohol abuse last drink 03/02/2025, cocaine use (last use 04/21/2025), liver cirrhosis, tobacco dependence, right hip OA, obesity, and Guillian-[place] syndrome, left adrenal mass was BIBA for increased redness, swelling and pain of LLE. Pt was discharged 04/[address] line in place and daptomycin for LLE cellulitis and chronic Sacral OM. Pt has been followed by [facility] care in the home and self administers the Daptomycin as prescribed and has not missed any doses. Pt states the PICC line dressing was last changed 04/23. Pt denies any current fever, N/V, abd pain, but is reporting diarrhea that is considered chronic but pt has hx of CDIFF. Pt was followed by General Surgery last admission and there was consideration for amputation of digits ? but after results of arterial US completed, GEN SURG requested Vascualr consult prior to attempting surgery, Pt was not able to schedule recommended vascular appt as an outpatient as pt could not be seen last admission by vascular. Pt believes he was told that amputation of the 2 involved toes on left foot could clear this whole thing up and pt does not want to lose the foot. In the ED, venous dopplers were completed and it is negative for DVT in LLE. Pt was started on Vancomycin and Zosyn. Pt received dilaudid for pain. Pt has noted redness and warmth from Left toes up through mid lower leg area. There are no current opening in the Left foot and leg. Pt also has evidence of warmth and redness from the R stump and pt is reporting pain in both legs. Pt also has new opening in sacrum draining minimal cloudy drainage. Pt seen placing his finger in the wound. Both feet are soiled with black dirt. Pt will be facing eviction hearing May 10 and has plans to move in with HOSPITALITY AIDE or [address]. Pt denies any SI, HI, AH, VH currently but is easily overwhelmed and states if he didn't do cocaine once a month, he is not sure what would happen. Pt did not mention a specific plan to harm self or others. Pt deferred need for psychiatric eval at this time. Pt does continue to smoke and is requesting 7 mg nicotine patch to start in AM as it causes him insomnia when wearing at night. Review of Systems 2 Review of Systems: Pt currently denies CP, SOB at rest, falls or recent injuryt, ABd pain but is having usual diarrhea that is reported as foul smelling. Pt denies any MARCELO, visual changes. Pt states last alcoholic drink was 03/02/2025. Last use of cocaine was 04/21/2025. Yes all other systems are reviewed and are negative FOR[facility]LY [facility], [facility] Medical History Sacral decubitus ulcer Osteomyelitis of foot Decubitus ulcer Amputation of one or more toes Aftercare following right hip joint replacement surgery Bipolar disorder PTSD (post-traumatic stress disorder) Sacral decubitus ulcer Peripheral neuropathy Non-insulin dependent type 2 diabetes mellitus Guillain-[place] Cognitive capacity: A/O X3 Functional capacity: wheelchair bound Surgical History History of esophagogastroduodenoscopy (EGD) Hx of laminectomy History of total hip replacement Hx of right BKA Social History Household Members: None Housing: Condominium Are you a primary care transition manager to a significant other at home: No Do you presently have visiting nurse or other home services: Yes (HOSPITALITY AIDE twice daily, every day) Alcohol intake: current Alcohol intake frequency: former alcohol drinker Alcohol type: hard liquor Comment: stand pivot to luz marina avila Patient Tobacco Use Status: Current everyday Tobacco user Tobacco use type: Cigarette Cigarette Packs Per Day: 1 Cigarettes Per Day: 3 Years Smoked: 29 years Second Hand Smoke Exposure: No Use of substances other than those prescribed or required for medical reasons: Yes Substance Use Type: Crack/Cocaine Substance Use Frequency: Occasionally Advance Directives: No Advance Directives Information Provided: Yes service: No Ebola Risk: Travel/Contact With Anyone From Affected Area/s: No Has Patient Experienced Ebola Symptoms: No Meds Allergies Allergy/AdvReac Type Severity Reaction Status Date / Time baclofen Allergy Hives Verified 04/27/25 14:26 escitalopram (From Lexapro) Allergy Vomiting Verified 04/27/25 14:26 lithium Allergy Unresponsiv Verified 04/27/25 14:26 e metformin Allergy Unknown Verified 04/27/25 14:26 morphine Allergy Hives Verified 04/27/25 14:26 sulfamethoxazole (From Allergy Hives Verified 04/27/25 14:26 Bactrim) tramadol Allergy Hives Verified 04/27/25 14:26 trimethoprim (From Bactrim) Allergy Hives Verified 04/27/25 14:26 Home Medications ?Medication ?Instructions ?Recorded ?Confirmed ?Last Taken ?Type hydroxyzine HCl 50 mg tablet 50 mg PO TID 04/14/2504/12/25 History omeprazole 40 mg capsule,delayed 40 mg PO BID@0630,163 0 04/14/25 04/14/25 04/12/25 History release pregabalin 225 mg capsule 225 mg PO BID 04/14/2504/1404/12/25 History quetiapine 300 mg tablet 300 mg PO BEDTIME 04/14/25 0 04/14/25 04/12/25 History sertraline 100 mg tablet 150 mg PO DAILY 04/14/2504/12/25 History Physical Exam 2 Vital Signs and Narrative: Vital Signs: Last Vital Signs Temp 97.3 F 04/27/25 18:00 Pulse 76 04/27/25 18:00 Resp 16 04/27/25 18:00 BP 136/85 04/27/25 18:00 Pulse Ox 97 04/27/25 18:00 O2 Del Method Room Air 04/27/25 18:00 BMI result Body Mass Index 39.7 Alert and orientated X3, able to give good history. Neuro: CN II-X11 intact, no deficits, visual acuity intact EYES: PERRLA, EOM intact, sclerae nonicteric, conjunctiva pink ENT: hearing intact, no issues with swallowing, uvula midline, lips moist, nares patent no epistaxis Cardiac: S1 S2 RRR, no murmur, no JVD, mild edema in LLower ext Pulmonary: lungs CTA B Abdominal: BS active in all 4 quadrants, no guarding, mild tenderness midepigastric area, no rebounding MSK: strength 4/5 upper and lower extremities, R BKA amputation : no CVA tenderness no bladder distension Extremities: mild edema in left lower extremity, PT and DP pulses palpable +2 LLE LLE warm from toes to mid lower leg, no openings Psych: mood calm, judgement and insight good Skin: sacrum has small opening that is new, pt seen placing fingers in site, drainage clougy but minimal Results Labs 04/27/25 14:48 04/27/25 14:48 Labs: Laboratory Results - last 24 hr 04/27/25 04/27/25 14:48 16:33 MCV 81.2 MCH 27.5 MCHC 33.9 RDW 14.5 Plt Count 282 MPV 11.0 Immature Gran % (Auto) 0.3 Neut % (Auto) 69.2 Lymph % (Auto) 22.7 [place] % (Auto) 5.1 Eos % (Auto) 2.3 Baso % (Auto) 0.4 Lymph # (Auto) 2.3 [place] # (Auto) 0.5 Eos # (Auto) 0.2 Baso # (Auto) 0.0 Abs Immat Gran (auto) 0.03 Absolute Neuts (auto) 7.0 Absolute Nucleated RBC 0.000 Nucleated RBC % (auto) 0.0 ESR 12 Anion Gap 15 Estim Creat Clear Calc 177.0 Estimated GFR > 60 Random Glucose 94 Lactic Acid 1.6 Calcium 9.1 Total Bilirubin 0.5 AST 39 H ALT 41 H Alkaline Phosphatase 101 Total Creatine Kinase 90 C-Reactive Protein 0.48 Total Protein 7.1 Albumin 4.3 Imaging Radiologist's Impressions: CT ABD PELVIS IMPRESSION: 1. Findings which could indicate mild osteomyelitis at the sacrococcygeal junction unchanged compared to 04/01/2025. 2. Bilateral ischial wounds. 3. Cirrhosis. 4. Cholelithiasis. 5. Stable left adrenal adenomata. Doppler LLE FINDINGS: The visualized deep veins are fully compressible with normal Doppler color flow and spectral tracings. No popliteal cyst. Prominent but otherwise morphologically normal left groin lymph node measuring 3.8 x 0.9 x 3.0 cm with normal fatty hilum, likely reactive. IMPRESSION: 1. Negative for left lower extremity deep vein thrombosis. Assessment and Plan (1) Cellulitis: Qualifiers: Laterality: left Site of cellulitis: extremity Site of cellulitis of extremity: lower extremity Qualified Code(s): L03.116 - Cellulitis of left lower limb Status: Acute (2) Osteomyelitis: Qualifiers: Osteomyelitis location: unspecified site Osteomyelitis type: u nspecified type Qualified Code(s): M86.9 - Osteomyelitis, unspecified Status: Acute (3) Sacral decubitus ulcer: Qualifiers: Pressure injury stage: unspecified pressure injury stage Qualified Code(s): L89.159 - Pressure ulcer of sacral region, unspecified stage Status: Acute Plan Patient is a 40-year-old male currently living alone and disabled/wheelchair-bound with history of right [id number] amputation secondary to diabetes, current NIDDM, PVD, GIB, chronic sacral wound with OM, CDIFF 12/2024, peripheral neuropathy, GIB, bipolar depression, PTSD, alcohol abuse last drink 03/02/2025, cocaine use (last use 04/21/2025), liver cirrhosis, tobacco dependence, right hip OA, obesity, and Guillian-[place] syndrome, left adrenal mass was BIBA for increased redness, swelling and pain of LLE. Pt was discharged 04/[address] line in place and daptomycin for LLE cellulitis and chronic Sacral OM. Pt [facility] home and self administers the Daptomycin as prescribed and has not missed any doses. Pt states the PICC line dressing was last changed 04/23. Pt denies any current fever, N/V, abd pain, but is reporting diarrhea that is considered chronic but pt has hx of CDIFF. Cellulitis LLE, R stump (new) MRI's completed last admission, No OM noted Xrays of LLE and R thigh ordered Vascular Consulted - pt was not seen last admission and did not make outpatient appt as instructed on DC 04/14 General Surgery consulted Pain mgmt ordered ID consulted Pt believes amputation of 2 toes on left foot would clear infection, pt does not want to lose foot Vancomycin and Zosyn initiated in ED, pt was on Daptomycin via PICC at home since DC 04/14 ID consulted No evidence of Sepsis on admission BC X2 pending Venous doppler of LLE negative for DVT OM sacrum, chronic with new small opening Wound care consulted Wound culture requested of opened site ABD PELVIS CT notes mild OM of the area Continue ABX HX of CDIFF with current diarrhea CDIFF pending Precautions in place Probiotic ordered NIDDM SSI DIabetic diet GERD Omeperazole Cholelithiasis on CT Lipase WNL No complaints of abd pain Low fat diet Cirrhosis/ Alcohol use disorder LFTs WNL Last drink was March 02 No issues with possible withdrawal No CIWA, no need for phenobarbitol Substance use disorder Last use of cocaine April 21, pt admits to using once monthly Toxicology screen pending Tobacco dependence Pt agreed to NRT 7 mgs to start in AM Bipolar/PTSD Continue home meds once med rec completed DVT prophylaxis: Held until seen by vascular/ general surgery NPO after midnight in case surgical intervention required MED REC PENDING FULL CODE Quality Stroke Does the patient have a stroke diagnosis?: No Reason for No Anti-thrombotic by Day Two: Contraindicated (held in case pt requires procedure in AM ) VTE Prior VTE?: No VTE Risk Level:: Medical - moderate - high VTE Device Contraindication: Treatment Not Indicated VTE Drug Contraindication: N/A - Med Ordered
[2025-04-27] MEDS: oxyCODONE HCl Immed Release 5 MG TABLET PO (20:02)
[2025-04-27 20:51] LABS: Glucose, Whole Blood 175 mg/dL (60-115)
--- NOTE | 2025-04-27 20:55 | PHA.MEDREC ---
Addendum entered by Khris Carver [facility] 04/27/25 21:48: Reviewed by [facility] Addendum entered by Amy Marroquin 04/27/25 21:46: Patient confirmed Daptomycin 500 mg IV Daily. Original Note: Pharmacy Consult ? Medication Reconciliation Pharmacy has completed the medication reconciliation. Spoke to patient to confirm med list. Patient states he is no longer taking Erythromycin and Oxycodone 5 mg. Patient states he takes Quetiapine 300 mg at bedtime , however he ran out of refill and has not taken any in 5 days.
[2025-04-27 21:10] VITALS: BP 134/84; PULSE 88; RESP 16; TEMP 36.4; O2SAT 96
[2025-04-27 22:19] VITALS: BP 137/80; PULSE 88; RESP 18; TEMP 36.6; O2SAT 97
[2025-04-27 22:26] VITALS: BMI 39.2
--- NOTE | 2025-04-27 22:29 | PC.NURSE ---
Skin marker used to estella redness of right BKA stump and redness on Left great toe.
[2025-04-27] MEDS: 0.9 % Sodium Chloride Flush 3 ML SYRINGE IVFLUSH (23:43)
--- NOTE | 2025-04-28 00:45 | HO.SKINPHOTO ---
Location: Sacral Category: Location: Right stump Category: Location: Left Leg Category: Location: Right arm PICC site Category:
[2025-04-28 03:21] VITALS: BP 133/80; PULSE 97; RESP 18; TEMP 36.2; O2SAT 97
[2025-04-28 06:09] LABS: MANUAL DIFF FLAG NO
[2025-04-28 06:12] LABS: Hematocrit 33.5 % (42.0-52.0); Hemoglobin 10.7 g/dl (14.0-18.0); Imm Gran Abs Auto 0.03 X10*3/uL (0.00-0.03); Imm Gran Pct Auto 0.5 % (0.0-0.4); Lymphocytes Absolute Auto 1.3 X10*3/uL (1.2-4.9); Mean Corpuscular HGB Conc 31.9 g/dl (31.0-36.0); Mean Corpuscular Hemoglobin 26.8 pg (27.0-33.0); Mean Corpuscular Volume 83.8 fL (80.0-98.0); NRBC Abs Auto 0.000 X10*3/uL (0.0-0.012); NRBC Pct Auto 0.0 /100WBC (0.0-0.2); Platelet Count 177 X10*3/uL (160-400); Red Blood Count 4.00 X10*6/uL (4.60-5.80); White Blood Count 5.9 X10*3/uL (4.8-10.8)
[2025-04-28 06:27] LABS: Alanine Aminotransferase 31 U/L (0-40); Albumin Level 3.4 g/dL (3.5-5.0); Alkaline Phosphatase 87 U/L (39-117); Anion Gap 13 (12-20); Aspartate Amino Transferase 30 U/L (5-37); Blood Urea Nitrogen 25 mg/dL (9-16); Calcium 8.4 mg/dL (8.4-10.2); Carbon Dioxide 22 mmol/L (22-29); Chloride 112 mmol/L (96-108); Creatinine Clr Calc Pharmacy 89.8; Estimated Glomerular Filt Rate 59; Potassium 3.7 mmol/L (3.3-5.1); Sodium 143 mmol/L (135-145); Total Protein 5.7 g/dL (6.5-8.0)
[2025-04-28 07:33] LABS: Glucose, Whole Blood 104 mg/dL (60-115)
[2025-04-28 07:54] VITALS: BP 138/85; PULSE 81; RESP 18; TEMP 36.1; O2SAT 97
--- NOTE | 2025-04-28 07:54 | P.PNIM_ITS ---
Subjective Subjective Date of Service: 04/28/25 Interval History: LLE cellulitis - cont abx R hip OA - cont abx R stump cellulitis - cont abx GS consulted Substance use team consulted CM consulted for impendinng homelessness Review of Systems Review of Systems: Yes all other systems are reviewed and are negative Physical Exam 2 Exam: Exam: General: AOx3, no acute distress Resp: CTA bilaterally CVS: S1, S2, RRR GI: +BS, NT, no distention Extremities: R knee stump marked with marker , L toe OM Vital Signs: Vital Signs: Last Vital Signs Temp 97.1 F 04/28/25 03:21 Pulse 97 04/28/25 03:21 Resp 18 04/28/25 03:21 BP 133/80 04/28/25 03:21 Pulse Ox 97 04/28/25 03:21 O2 Del Method Room Air 04/28/25 03:21 BMI result Body Mass Index 39.2 Objective Data Active Medications Acetaminophen (Acetaminophen 325 Mg Tablet) 650 mg PO Q6H PRN PRN Reason: Pain, Mild 1-3,fever,headache Last Admin: 04/27/25 20:02 Dose: 650 mg Documented By: LIZZ Albuterol/Ipratropium (Albuterol/Iprat 2.5/0.5mg 3 Ml Ampul.Neb) 3 ml INHALE Q4H PRN PRN Reason: Shortness of Breath/Wheezing Calcium Carbonate (Calcium Carbonate 750 Mg Tab.Chew) 750 mg PO Q4H PRN PRN Reason: Heartburn Dextrose (Dextrose 50 % 25 Gm/50 Ml Syringe) 25 gm IVPUSH Q15M PRN; Protocol PRN Reason: per Hypoglycemia Standing Ord. Glucose (Glucose Gel 15 Gm Gel..Gram.) 15 gm PO Q15M PRN; Protocol PRN Reason: per Hypoglycemia Standing Ord. Hydralazine HCl (Hydralazine Hcl 20 Mg/Ml Vial) 10 mg IVPUSH Q6H PRN; Protocol PRN Reason: SBP > 160 Hydromorphone HCl (Hydromorphone Hcl 1 Mg/Ml Syringe) 1 mg IVPUSH Q4H PRN; Protocol PRN Reason: Pain, Severe (Pain Scale 7-10) Last Admin: 04/28/25 07:40 Dose: 1 mg Documented By: PETEY Hydroxyzine HCl (Hydroxyzine Hcl 50 Mg Tablet) 50 mg PO TID [facility] Last Admin: 04/28/25 07:40 Dose: 50 mg Documented By: PETEY Sodium Chloride (Ns) 1,000 mls @ 100 mls/hr IVCONT .Q10H [facility] Last Admin: 04/28/25 05:22 Dose: Not Given Documented By: DI Non-Admin Reason: IV Running Piperacillin Sod/Tazobactam (Sod 4.5 gm/ Sodium Chloride) 100 mls @ 200 mls/hr IV Q6H [facility] Last Infusion: 04/28/25 03:40 Dose: Infused Documented By: DI Vancomycin HCl 1,500 mg/ (Sodium Chloride) 500 mls @ 333.333 mls/hr IV Q12H [facility] Last Infusion: 04/28/25 05:15 Dose: Infused Documented By: DI Insulin Human Lispro (Insulin Lispro 100 Unit/Ml 3 Ml Vial) 0 unit SUBCUT QIDACHS [facility]; Protocol Last Admin: 04/28/25 07:34 Dose: Not Given Documented By: PETEY Non-Admin Reason: No Insulin Coverage Magnesium Hydroxide (Milk Of Magnesia 30 Ml Oral.Susp) 30 ml PO DAILY PRN PRN Reason: Constipation Melatonin (Melatonin 3 Mg Tablet) 6 mg PO BEDTIME PRN PRN Reason: Insomnia Nicotine (Nicotine 7 Mg Patch.Td24) 7 mg TRANSDERMA DAILY [facility] Last Admin: 04/28/25 07:44 Dose: Not Given Documented By: PETEY Non-Admin Reason: Patient Refused Omeprazole (Omeprazole 40 Mg Avani.) 40 mg PO BID@0630,1630 [facility] Last Admin: 04/28/25 05:38 Dose: 40 mg Documented By: DI Ondansetron HCl (Ondansetron Hcl 4 Mg/2 Ml Vial) 4 mg IVPUSH Q8H PRN PRN Reason: Nausea and Vomiting Oxycodone HCl (Oxycodone Hcl Immed Release 5 Mg Tablet) 5 mg PO Q6H PRN PRN Reason: Pain, Moderate(Pain Scale 4-6) Last Admin: 04/27/25 20:02 Dose: 5 mg Documented By: LIZZ Pharmacy Consult (Consult Rx Vancomycin Dosing) 1 each MISCELLANE DAILY PRN PRN Reason: Consult order Polyethylene Glycol (Polyethylene Glycol 3350 17 Gm Powd.Pack) 17 gm PO DAILY PRN PRN Reason: Constipation Pregabalin (Pregabalin 75 Mg Capsule) 225 mg PO BID [facility] Last Admin: 04/28/25 07:40 Dose: 225 mg Documented By: PETEY Quetiapine Fumarate (Quetiapine Fumarate 300 Mg Tablet) 300 mg PO BEDTIME [facility] Last Admin: 04/27/25 23:38 Dose: 300 mg Documented By: TUMASY Senna (Sennosides 8.6 Mg Tablet) 17.2 mg PO BEDTIME [facility] Last Admin: 04/27/25 21:48 Dose: Not Given Documented By: LIZZ Non-Admin Reason: Patient Refused Sertraline HCl (Sertraline Hcl 50 Mg Tablet) 150 mg PO DAILY [facility] Last Admin: 04/28/25 07:40 Dose: 150 mg Documented By: PETEY Sodium Chloride (0.9 % Sodium Chloride Flush 3 Ml Syringe) 3 ml IVFLUSH QSHIFT [facility] Last Admin: 04/28/25 07:34 Dose: Not Given Documented By: PETEY Non-Admin Reason: IV Running Labs 04/28/25 05:11 04/28/25 05:11 Labs: Laboratory Results - last 24 hr 04/27/25 04/27/25 04/27/25 14:48 16:33 20:47 MCV 81.2 MCH 27.5 MCHC 33.9 RDW 14.5 Plt Count 282 MPV 11.0 Immature Gran % (Auto) 0.3 Neut % (Auto) 69.2 Lymph % (Auto) 22.7 Hardy % (Auto) 5.1 Eos % (Auto) 2.3 Baso % (Auto) 0.4 Lymph # (Auto) 2.3 Hardy # (Auto) 0.5 Eos # (Auto) 0.2 Baso # (Auto) 0.0 Abs Immat Gran (auto) 0.03 Absolute Neuts (auto) 7.0 Absolute Nucleated RBC 0.000 Nucleated RBC % (auto) 0.0 ESR 12 Anion Gap 15 Estim Creat Clear Calc 177.0 Estimated GFR > 60 POC Glucose 175 H Random Glucose 94 Lactic Acid 1.6 Calcium 9.1 Total Bilirubin 0.5 AST 39 H ALT 41 H Alkaline Phosphatase 101 Total Creatine Kinase 90 C-Reactive Protein 0.48 Total Protein 7.1 Albumin 4.3 04/28/25 04/28/25 05:11 07:26 MCV 83.8 MCH 26.8 L MCHC 31.9 RDW 14.3 Plt Count 177 D MPV 11.2 Immature Gran % (Auto) 0.5 H Neut % (Auto) 64.3 Lymph % (Auto) 22.2 Hardy % (Auto) 10.5 Eos % (Auto) 2.0 Baso % (Auto) 0.5 Lymph # (Auto) 1.3 Hardy # (Auto) 0.6 Eos # (Auto) 0.1 Baso # (Auto) 0.0 Abs Immat Gran (auto) 0.03 Absolute Neuts (auto) 3.8 Absolute Nucleated RBC 0.000 Nucleated RBC % (auto) 0.0 ESR Anion Gap 13 Estim Creat Clear Calc 89.8 Estimated GFR 59 POC Glucose 104 Random Glucose 142 H Lactic Acid Calcium 8.4 D Total Bilirubin 0.5 AST 30 ALT 31 Alkaline Phosphatase 87 Total Creatine Kinase C-Reactive Protein Total Protein 5.7 L Albumin 3.4 L Assessment and Plan (1) Osteomyelitis: Status: Acute Plan d3, 40yo M with DM and hx R BKA, PVD, chronic sacral wound, prior C. difficile, peripheral neuroatphy, PTSD, bipolar disorder, polysubstance abuse, cirrhosis, hx leaving AMA , presents with new worsening cellulitis of R stump despite being on abx Cellulitis LLE, R stump cellulitis despite being on Daptomycin ?compliance Multispeciality consults placed- GS, Addiction, Vascular and ID Con Meropenem HDS F/up new sepsis wokrup this admission chronic sacral wound - Wound Care consult pending hx GI bleed, signed out AMA February 2025 - H+H stable Diet controlled DM2, A1c 6.4, well-controlled - correction-dose lispro - diabetic diet GERD - PPI cocaine abuse - Recovery Team consulted, declined intervention, HBV/HCV/HIV screen pending neuropathy - continue pregabalin bipolar disorder/PTSD - continue hydroxyzine, quetiapine, sertraline VTE ppx - enoxaparin Bipolar/PTSD Continue home meds once med rec completed DVT prophylaxis: Held until seen by vascular/ general surgery NPO after midnight in case surgical intervention required LLE DM cellulitis/osteomyelitis of 2nd metatarsal head and 3rd proximal phalanx and IP joint with sepsis PAD - 04/14- vancomycin + piperacillin-tazobactam; d/c clindamycin 04/14-04/15 [given for 24h to shut off toxin production]; added prophylactic PO vancomycin due to hx C. difficile infection Quality Stroke Does the patient have a stroke diagnosis?: No Reason for No Anti-thrombotic by Day Two: Contraindicated (held in case pt requires procedure in AM ) VTE Prior VTE?: No VTE Risk Level:: Medical - moderate - high VTE Device Contraindication: Treatment Not Indicated VTE Drug Contraindication: N/A - Med Ordered
[2025-04-28 11:39] LABS: Glucose, Whole Blood 126 mg/dL (60-115)
--- NOTE | 2025-04-28 14:30 | HE.PHANOTE ---
Vancomycin addendum: level came back 21.9 after 2 doses, reduced to q 24 hours, will recheck level before dose tomorrow
[2025-04-28] MEDS: 0.9 % Sodium Chloride Flush 3 ML SYRINGE IVFLUSH (15:36)
[2025-04-28 16:00] VITALS: BP 126/66; PULSE 88; RESP 20; TEMP 36.6; O2SAT 97
--- NOTE | 2025-04-28 16:06 | MHC.CM.PN ---
PT LIVES ALONE, HOUSING IS NOT STABLE AND EVICTION IS IN PROCESS, COURT DATE 05/10/25 HE REPORTS HE WILL BE GOING TO [facility], HE IS JUST WAITING ON PLACEMENT PT HAS 50+ SWABBER HOURS PER WEEK AND USES A WHEEL CHAIR AND PROSTHETIC LE HE DOES NOT HAVE A PCP, BROCHURE PROVIDED DECLINES A HCP STATING HE HAS NO ONE TO NAME IMM DELIVERED DCP: RETURN HOME VIA SHUTTLE VS LYFT
[2025-04-28 16:21] LABS: Glucose, Whole Blood 154 mg/dL (60-115)
[2025-04-28 20:00] VITALS: BP 141/90; PULSE 70; RESP 18; TEMP 36.2; O2SAT 98
[2025-04-28 20:21] LABS: Glucose, Whole Blood 139 mg/dL (60-115)
[2025-04-28] MEDS: oxyCODONE HCl Immed Release 5 MG TABLET PO (21:56)
[2025-04-29 04:00] VITALS: BP 159/94; PULSE 96; RESP 18; TEMP 36.9; O2SAT 95
[2025-04-29 06:40] LABS: MANUAL DIFF FLAG NO
[2025-04-29 06:50] LABS: Hematocrit 35.0 % (42.0-52.0); Hemoglobin 11.1 g/dl (14.0-18.0); Imm Gran Abs Auto 0.02 X10*3/uL (0.00-0.03); Imm Gran Pct Auto 0.4 % (0.0-0.4); Lymphocytes Absolute Auto 1.3 X10*3/uL (1.2-4.9); Mean Corpuscular HGB Conc 31.7 g/dl (31.0-36.0); Mean Corpuscular Hemoglobin 26.6 pg (27.0-33.0); Mean Corpuscular Volume 83.7 fL (80.0-98.0); NRBC Abs Auto 0.000 X10*3/uL (0.0-0.012); NRBC Pct Auto 0.0 /100WBC (0.0-0.2); Platelet Count 203 X10*3/uL (160-400); Red Blood Count 4.18 X10*6/uL (4.60-5.80); White Blood Count 5.6 X10*3/uL (4.8-10.8)
[2025-04-29 07:09] LABS: Alanine Aminotransferase 24 U/L (0-40); Albumin Level 3.7 g/dL (3.5-5.0); Alkaline Phosphatase 94 U/L (39-117); Anion Gap 13 (12-20); Aspartate Amino Transferase 22 U/L (5-37); Blood Urea Nitrogen 20 mg/dL (9-16); Calcium 8.8 mg/dL (8.4-10.2); Carbon Dioxide 22 mmol/L (22-29); Chloride 114 mmol/L (96-108); Creatinine Clr Calc Pharmacy 77.1; Estimated Glomerular Filt Rate 49; Potassium 4.1 mmol/L (3.3-5.1); Sodium 145 mmol/L (135-145); Total Protein 6.1 g/dL (6.5-8.0)
[2025-04-29 07:48] LABS: Glucose, Whole Blood 215 mg/dL (60-115)
--- NOTE | 2025-04-29 07:48 | P.PNIM_ITS ---
Subjective Subjective Date of Service: 04/29/25 Interval History: Patient is otherwise clinically stable Reports clinical improvement Appears very anxious and goes on attention show, slightly difficult to redirect Did reassured him that all the consults have been made per his request Review of Systems Review of Systems: Yes all other systems are reviewed and are negative Physical Exam 2 Exam: Exam: General: AOx3, no acute distress Resp: CTA bilaterally CVS: S1, S2, RRR GI: +BS, NT, no distention Extremities: R knee stump marked with marker , L toe OM Vital Signs: Vital Signs: Last Vital Signs Temp 97.1 F 04/28/25 03:21 Pulse 97 04/28/25 03:21 Resp 18 04/28/25 03:21 BP 133/80 04/28/25 03:21 Pulse Ox 97 04/28/25 03:21 O2 Del Method Room Air 04/28/25 03:21 BMI result Body Mass Index 39.2 Objective Data Active Medications Acetaminophen (Acetaminophen 325 Mg Tablet) 650 mg PO Q6H PRN PRN Reason: Pain, Mild 1-3,fever,headache Last Admin: 04/27/25 20:02 Dose: 650 mg Documented By: LIZZ Albuterol/Ipratropium (Albuterol/Iprat 2.5/0.5mg 3 Ml Ampul.Neb) 3 ml INHALE Q4H PRN PRN Reason: Shortness of Breath/Wheezing Calcium Carbonate (Calcium Carbonate 750 Mg Tab.Chew) 750 mg PO Q4H PRN PRN Reason: Heartburn Dextrose (Dextrose 50 % 25 Gm/50 Ml Syringe) 25 gm IVPUSH Q15M PRN; Protocol PRN Reason: per Hypoglycemia Standing Ord. Glucose (Glucose Gel 15 Gm Gel..Gram.) 15 gm PO Q15M PRN; Protocol PRN Reason: per Hypoglycemia Standing Ord. Hydralazine HCl (Hydralazine Hcl 20 Mg/Ml Vial) 10 mg IVPUSH Q6H PRN; Protocol PRN Reason: SBP > 160 Hydromorphone HCl (Hydromorphone Hcl 1 Mg/Ml Syringe) 1 mg IVPUSH Q4H PRN; Protocol PRN Reason: Pain, Severe (Pain Scale 7-10) Last Admin: 04/29/25 04:06 Dose: 1 mg Documented By: SONG Hydroxyzine HCl (Hydroxyzine Hcl 50 Mg Tablet) 50 mg PO TID [facility] Last Admin: 04/28/25 21:51 Dose: 50 mg Documented By: SONG Sodium Chloride (Ns) 1,000 mls @ 100 mls/hr IVCONT .Q10H [facility] Last Admin: 04/29/25 07:09 Dose: 100 mls/hr Documented By: PETEY Piperacillin Sod/Tazobactam (Sod 4.5 gm/ Sodium Chloride) 100 mls @ 200 mls/hr IV Q6H [facility] Last Infusion: 04/29/25 04:37 Dose: Infused Documented By: SONG Vancomycin HCl 1,500 mg/ (Sodium Chloride) 500 mls @ 333.333 mls/hr IV Q24H [facility] Insulin Human Lispro (Insulin Lispro 100 Unit/Ml 3 Ml Vial) 0 unit SUBCUT QIDACHS [facility]; Protocol Last Admin: 04/28/25 21:27 Dose: Not Given Documented By: SONG Non-Admin Reason: No Insulin Coverage Magnesium Hydroxide (Milk Of Magnesia 30 Ml Oral.Susp) 30 ml PO DAILY PRN PRN Reason: Constipation Melatonin (Melatonin 3 Mg Tablet) 6 mg PO BEDTIME PRN PRN Reason: Insomnia Nicotine (Nicotine 7 Mg Patch.Td24) 7 mg TRANSDERMA DAILY [facility] Last Admin: 04/28/25 07:44 Dose: Not Given Documented By: PETEY Non-Admin Reason: Patient Refused Omeprazole (Omeprazole 40 Mg Capsule.) 40 mg PO BID@0630,1630 [facility] Last Admin: 04/29/25 06:23 Dose: 40 mg Documented By: SONG Ondansetron HCl (Ondansetron Hcl 4 Mg/2 Ml Vial) 4 mg IVPUSH Q8H PRN PRN Reason: Nausea and Vomiting Oxycodone HCl (Oxycodone Hcl Immed Release 5 Mg Tablet) 5 mg PO Q6H PRN PRN Reason: Pain, Moderate(Pain Scale 4-6) Last Admin: 04/28/25 21:56 Dose: 5 mg Documented By: SONG Pharmacy Consult (Consult Rx Vancomycin Dosing) 1 each MISCELLANE DAILY PRN PRN Reason: Consult order Polyethylene Glycol (Polyethylene Glycol 3350 17 Gm Powd.Pack) 17 gm PO DAILY PRN PRN Reason: Constipation Pregabalin (Pregabalin 75 Mg Capsule) 225 mg PO BID [facility] Last Admin: 04/28/25 21:51 Dose: 225 mg Documented By: SONG Quetiapine Fumarate (Quetiapine Fumarate 300 Mg Tablet) 300 mg PO BEDTIME [facility] Last Admin: 04/28/25 21:51 Dose: 300 mg Documented By: SONG Senna (Sennosides 8.6 Mg Tablet) 17.2 mg PO BEDTIME [facility] Last Admin: 04/28/25 21:51 Dose: 17.2 mg Documented By: SONG Sertraline HCl (Sertraline Hcl 50 Mg Tablet) 150 mg PO DAILY [facility] Last Admin: 04/28/25 07:40 Dose: 150 mg Documented By: PETEY Sodium Chloride (0.9 % Sodium Chloride Flush 3 Ml Syringe) 3 ml IVFLUSH QSHIFT [facility] Last Admin: 04/29/25 07:10 Dose: Not Given Documented By: PETEY Non-Admin Reason: IV Running Labs 04/29/25 06:25 04/29/25 06:25 Labs: Laboratory Results - last 24 hr 04/28/25 04/28/25 04/28/25 11:29 13:50 16:12 MCV MCH MCHC RDW Plt Count MPV Immature Gran % (Auto) Neut % (Auto) Lymph % (Auto) [place] % (Auto) Eos % (Auto) Baso % (Auto) Lymph # (Auto) [place] # (Auto) Eos # (Auto) Baso # (Auto) Abs Immat Gran (auto) Absolute Neuts (auto) Absolute Nucleated RBC Nucleated RBC % (auto) Anion Gap Estim Creat Clear Calc Estimated GFR POC Glucose 126 H 154 H Random Glucose Calcium Total Bilirubin AST ALT Alkaline Phosphatase Total Protein Albumin Random Vancomycin 21.9 H 04/28/25 04/29/25 04/29/25 19:59 06:25 07:35 MCV 83.7 MCH 26.6 L MCHC 31.7 RDW 14.4 Plt Count 203 MPV 11.0 Immature Gran % (Auto) 0.4 Neut % (Auto) 65.3 Lymph % (Auto) 23.1 [place] % (Auto) 8.0 Eos % (Auto) 2.7 Baso % (Auto) 0.5 Lymph # (Auto) 1.3 [place] # (Auto) 0.5 Eos # (Auto) 0.2 Baso # (Auto) 0.0 Abs Immat Gran (auto) 0.02 Absolute Neuts (auto) 3.7 Absolute Nucleated RBC 0.000 Nucleated RBC % (auto) 0.0 Anion Gap 13 Estim Creat Clear Calc 77.1 Estimated GFR 49 POC Glucose 139 H 215 H Random Glucose 128 H Calcium 8.8 Total Bilirubin 0.3 AST 22 ALT 24 Alkaline Phosphatase 94 Total Protein 6.1 L Albumin 3.7 Random Vancomycin Microbiology Microbiology Results: Microbiology 04/27/25 17:14 Blood Culture - Preliminary Blood - Venous No growth after 24 hours. 04/27/25 16:33 Blood Culture - Preliminary Blood - Venous No growth after 24 hours. Assessment and Plan (1) Osteomyelitis: Status: Acute Plan d3, 40yo M with DM and hx R BKA, PVD, chronic sacral wound, prior C. difficile, peripheral neuroatphy, PTSD, bipolar disorder, polysubstance abuse, cirrhosis, hx leaving AMA , presents with new worsening cellulitis of R stump despite being on abx Cellulitis LLE, R stump cellulitis despite being on Daptomycin ?compliance chronic sacral wound Patient is otherwise clinically stable Reports clinical improvement Appears very anxious and goes on attention show, slightly difficult to redirect Did reassured him that all the consults have been made per his request - Wound Care consult pending Multispeciality consults placed- GS, Addiction, Vascular and ID Con Meropenem HDS F/up new sepsis wokrup this admission Physical therapy prior to discharge hx GI bleed, signed out AMA February 2025 GERD - H+H stable - PPI Diet controlled DM2, A1c 6.4, well-controlled neuropathy - correction-dose lispro - diabetic diet - continue pregabalin TARIQ Addiction med consulted bipolar disorder/PTSD - continue hydroxyzine, quetiapine, sertraline VTE ppx - enoxaparin Bipolar/PTSD This note is constructed using voice recognition software. While every effort has been made to ensure accuracy, saw setter errors may have been included. Quality Stroke Does the patient have a stroke diagnosis?: No Reason for No Anti-thrombotic by Day Two: Contraindicated (held in case pt requires procedure in AM ) VTE Prior VTE?: No VTE Risk Level:: Medical - moderate - high VTE Device Contraindication: Treatment Not Indicated VTE Drug Contraindication: N/A - Med Ordered
[2025-04-29 07:52] VITALS: BP 140/84; PULSE 85; RESP 18; TEMP 36.4; O2SAT 98
--- NOTE | 2025-04-29 09:11 | P.CONGS_ITS ---
History of Present Illness Consult details Consult date: 04/14/25 Requesting physician: Carolin Broussard Narrative: 40-year-old male patient well known to the surgical service returning with complaints of left foot pain noting redness in the foot extending up the left leg. He has a history of [id number] diabetes mellitus, peripheral vascular disease, status post right BKA, alcohol use, cocaine abuse, cirrhosis, Guillain-Santa syndrome, left adrenal mass, peripheral neuropathy, GI bleed, bipolar disorder, PTSD, obesity, and sacral decubitus ulcer. He has had previous amputation of the 1st and 2nd toes of the left foot as well. He was recently discharged on IV antibiotics but returns with increased pain in the calf and foot. He is in the process of being evicted from his home but we will be staying with his [employer] WORK[employer] HEL[employer]. Previous arterial duplex study to the left leg revealed diffuse atherosclerotic disease with areas of [id number] stenosis in the superficial femoral artery. Plan was for the patient to follow up with vascular surgery to determine the need for vascular procedure to improve blood flow to foot. Review of Systems 2 Review of Systems: Yes all other systems are reviewed and are negative PMFSH Past Medical History Medical History Sacral decubitus ulcer Osteomyelitis of foot Decubitus ulcer Amputation of one or more toes Aftercare following right hip joint replacement surgery Bipolar disorder PTSD (post-traumatic stress disorder) Sacral decubitus ulcer Peripheral neuropathy Non-insulin dependent type 2 diabetes mellitus Guillain-Santa Surgical History Surgical History History of esophagogastroduodenoscopy (EGD) Hx of laminectomy History of total hip replacement Hx of right BKA Social History Social History Household Members: None Housing: House Are you a primary healthcare facility administrator to a significant other at home: No Do you presently have visiting nurse or other home services: Yes ([employer] daily) Alcohol intake: current Alcohol intake frequency: former alcohol drinker Alcohol type: hard liquor Comment: stand pivot to luz marina avila Patient Tobacco Use Status: Current everyday Tobacco user Tobacco use type: Cigarette Cigarette Packs Per Day: 1.5 Cigarettes Per Day: 30.0 Years Smoked: 29 Smoked in Last 30 Days: Yes e-Cigarette/Vaping Use: Never Used Patient Interested in Nicotine Replacement: Yes Second Hand Smoke Exposure: No Use of substances other than those prescribed or required for medical reasons: Yes Substance Use Type: Crack/Cocaine Substance Use Frequency: Occasionally Currently Displaying Signs/Symptoms of Drug Intoxication Withdrawal: No Have you been hit, kicked, punched, or otherwise hurt by someone within the past year? If so, by whom?: No Do you feel safe in your current relationship?: No Current Relationship Is there a partner from a previous relationship who is making you feel unsafe now?: No Are you made to feel afraid or neglected: No Advance Directives: No Advance Directives Information Provided: Yes Do you have a plan to hurt others: No Plan Recently lost weight without trying: No Nutrition Risks: Dental problems Poor oral hygiene: Yes service: No Travel History Ebola Risk: Travel/Contact With Anyone From Affected Area/s: No Has Patient Experienced Ebola Symptoms: No Meds Allergies Allergy/AdvReac Type Severity Reaction Status Date / Time baclofen Allergy Hives Verified 04/27/25 14:26 escitalopram (From Lexapro) Allergy Vomiting Verified 04/27/25 14:26 lithium Allergy Unresponsiv Verified 04/27/25 14:26 e metformin Allergy Unknown Verified 04/27/25 14:26 morphine Allergy Hives Verified 04/27/25 14:26 sulfamethoxazole (From Allergy Hives Verified 04/27/25 14:26 Bactrim) tramadol Allergy Hives Verified 04/27/25 14:26 trimethoprim (From Bactrim) Allergy Hives Verified 04/27/25 14:26 Active Medications: Current Medications Acetaminophen (Acetaminophen 325 Mg Tablet) 650 mg PO Q6H PRN PRN Reason: Pain, Mild 1-3,fever,headache Last Admin: 04/27/25 20:02 Dose: 650 mg Albuterol/Ipratropium (Albuterol/Iprat 2.5/0.5mg 3 Ml Ampul.Neb) 3 ml INHALE Q4H PRN PRN Reason: Shortness of Breath/Wheezing Calcium Carbonate (Calcium Carbonate 750 Mg Tab.Chew) 750 mg PO Q4H PRN PRN Reason: Heartburn Dextrose (Dextrose 50 % 25 Gm/50 Ml Syringe) 25 gm IVPUSH Q15M PRN; Protocol PRN Reason: per Hypoglycemia Standing Ord. Glucose (Glucose Gel 15 Gm Gel..Gram.) 15 gm PO Q15M PRN; Protocol PRN Reason: per Hypoglycemia Standing Ord. Hydralazine HCl (Hydralazine Hcl 20 Mg/Ml Vial) 10 mg IVPUSH Q6H PRN; Protocol PRN Reason: SBP > 160 Hydromorphone HCl (Hydromorphone Hcl 1 Mg/Ml Syringe) 1 mg IVPUSH Q4H PRN; Protocol PRN Reason: Pain, Severe (Pain Scale 7-10) Last Admin: 04/29/25 08:00 Dose: 1 mg Hydroxyzine HCl (Hydroxyzine Hcl 50 Mg Tablet) 50 mg PO TID [facility] Last Admin: 04/29/25 08:00 Dose: 50 mg Sodium Chloride (Ns) 1,000 mls @ 100 mls/hr IVCONT .Q10H [facility] Last Admin: 04/29/25 07:09 Dose: 100 mls/hr Piperacillin Sod/Tazobactam (Sod 4.5 gm/ Sodium Chloride) 100 mls @ 200 mls/hr IV Q6H [facility] Last Infusion: 04/29/25 04:37 Dose: Infused Vancomycin HCl 1,500 mg/ (Sodium Chloride) 500 mls @ 333.333 mls/hr IV Q24H [facility] Insulin Human Lispro (Insulin Lispro 100 Unit/Ml 3 Ml Vial) 0 unit SUBCUT QIDACHS [facility]; Protocol Last Admin: 04/29/25 08:04 Dose: 4 unit Magnesium Hydroxide (Milk Of Magnesia 30 Ml Oral.Susp) 30 ml PO DAILY PRN PRN Reason: Constipation Melatonin (Melatonin 3 Mg Tablet) 6 mg PO BEDTIME PRN PRN Reason: Insomnia Nicotine (Nicotine 7 Mg Patch.Td24) 7 mg TRANSDERMA DAILY [facility] Last Admin: 04/29/25 08:03 Dose: Not Given Omeprazole (Omeprazole 40 Mg Capsule.Dr) 40 mg PO BID@0630,1630 [facility] Last Admin: 04/29/25 06:23 Dose: 40 mg Ondansetron HCl (Ondansetron Hcl 4 Mg/2 Ml Vial) 4 mg IVPUSH Q8H PRN PRN Reason: Nausea and Vomiting Oxycodone HCl (Oxycodone Hcl Immed Release 5 Mg Tablet) 5 mg PO Q6H PRN PRN Reason: Pain, Moderate(Pain Scale 4-6) Last Admin: 04/28/25 21:56 Dose: 5 mg Pharmacy Consult (Consult Rx Vancomycin Dosing) 1 each MISCELLANE DAILY PRN PRN Reason: Consult order Polyethylene Glycol (Polyethylene Glycol 3350 17 Gm Powd.Pack) 17 gm PO DAILY PRN PRN Reason: Constipation Pregabalin (Pregabalin 75 Mg Capsule) 225 mg PO BID [facility] Last Admin: 04/29/25 08:00 Dose: 225 mg Quetiapine Fumarate (Quetiapine Fumarate 300 Mg Tablet) 300 mg PO BEDTIME [facility] Last Admin: 04/28/25 21:51 Dose: 300 mg Senna (Sennosides 8.6 Mg Tablet) 17.2 mg PO BEDTIME [facility] Last Admin: 04/28/25 21:51 Dose: 17.2 mg Sertraline HCl (Sertraline Hcl 50 Mg Tablet) 150 mg PO DAILY [facility] Last Admin: 04/29/25 08:00 Dose: 150 mg Sodium Chloride (0.9 % Sodium Chloride Flush 3 Ml Syringe) [facility] Last Admin: 04/29/25 07:10 Dose: Not Given Home Medications ?Medication ?Instructions ?Recorded ?Confirmed ?Last Taken ?Type hydroxyzine HCl 50 mg tablet 50 mg PO TID 04/14/2501/1404/27/25 History omeprazole 40 mg capsule,delayed 40 mg PO BID@0630,163 0 04/14/25 04/27/25 04/27/25 History release pregabalin 225 mg capsule 225 mg PO BID 04/14/2504/2704/27/25 History quetiapine 300 mg tablet 300 mg PO BEDTIME 04/14/25 0 04/27/25 04/26/25 History sertraline 100 mg tablet 150 mg PO DAILY 04/14/2501/1404/27/25 History daptomycin 500 mg intravenous 500 mg IV DAILY 04/27/25 04/27/25 04/27/25 History solution Physical Exam 2 Vital Signs: Vital Signs: Last Vital Signs Temp 97.5 F 04/29/25 07:52 Pulse 85 04/29/25 07:52 Resp 18 04/29/25 07:52 BP 140/84 H 04/29/25 07:52 Pulse Ox 98 04/29/25 07:52 O2 Del Method Room Air 04/29/25 07:52 BMI result Body Mass Index 39.2 Const: General: no acute distress Nutritional Appearance: well nourished Orientation/consciousness: patient oriented x3 Resp: Effort & Inspection: normal respiratory effort, no audible wheezes, no cough and no respiratory distress GI: Inspection: Yes normal to inspection Skin: Other: Warm, dry Neuro: General: patient oriented x3 Extrem: Other: Right BKA, left amputation of great and 2nd toes, 5th toe, minimal erythema noted in forefoot and lower calf. No open wound or discharge appreciated. Results Labs 04/29/25 06:25 04/29/25 06:25 Labs: Abnormal lab results 04/28/25 04/28/25 04/28/25 Range/Units 11:29 13:50 16:12 RBC (4.60-5.80) X10*6/uL Hgb (14.0-18.0) g/dl Hct (42.0-52.0) % MCH (27.0-33.0) pg Chloride (96-108) mmol/L BUN (9-16) mg/dL Creatinine (0.5-1.4) mg/dL POC Glucose 126 H 154 H (60-115) mg/dL Random Glucose (60-115) mg/dL Total Protein (6.5-8.0) g/dL Random Vancomycin 21.9 H (15-20) mcg/mL 04/28/25 04/29/25 04/29/25 Range/Units 19:59 06:25 07:35 RBC 4.18 L (4.60-5.80) X10*6/uL Hgb 11.1 L (14.0-18.0) g/dl Hct 35.0 L (42.0-52.0) % MCH 26.6 L (27.0-33.0) pg Chloride 114 H (96-108) mmol/L BUN 20 H (9-16) mg/dL Creatinine 1.55 H (0.5-1.4) mg/dL POC Glucose 139 H 215 H (60-115) mg/dL Random Glucose 128 H (60-115) mg/dL Total Protein 6.1 L (6.5-8.0) g/dL Random Vancomycin (15-20) mcg/mL Short CBC 04/29/25 Range/Units 06:25 WBC 5.6 (4.8-10.8) X10*3/uL Hgb 11.1 L (14.0-18.0) g/dl Hct 35.0 L (42.0-52.0) % Plt Count 203 (160-400) X10*3/uL BMP 04/29/25 06:25 Sodium 145 Potassium 4.1 Chloride 114 H Carbon Dioxide 22 BUN 20 H Creatinine 1.55 H Calcium 8.8 Liver Function 04/29/25 Range/Units 06:25 Total Bilirubin 0.3 (0.0-1.0) mg/dL AST 22 (5-37) U/L ALT 24 (0-40) U/L Alkaline Phosphatase 94 (39-117) U/L Albumin 3.7 (3.5-5.0) g/dL All other labs normal. Assessment and Plan (1) Cellulitis of left foot: Status: Acute (2) Osteomyelitis: Qualifiers: Osteomyelitis type: unspecified type Osteomyelitis location: u nspecified site Qualified Code(s): M86.9 - Osteomyelitis, unspecified Status: Acute Plan 40-year-old male with a known history of diabetes with osteomyelitis involving the 3rd toe presenting with pain and cellulitis involving the left calf and foot. Patient is requesting amputation of his 3rd and 4th toes however I recommended evaluation by vascular surgery prior to this to help with wound healing post procedure. He expressed understanding and agrees with the plan. Vascular surgery consultation requested. Procedures Date of Service Date of Service: 04/29/25
[2025-04-29 11:38] LABS: Glucose, Whole Blood 212 mg/dL (60-115)
[2025-04-29 15:20] VITALS: BP 145/90; PULSE 86; RESP 18; TEMP 36.3; O2SAT 96
[2025-04-29 16:26] LABS: Glucose, Whole Blood 99 mg/dL (60-115)
[2025-04-29 16:29] LABS: CDiff Gene PCR POSITIVE (Negative)
[2025-04-29 17:14] LABS: CDIFF Internal ctrl Dots and bkg OK (V); CDiff Toxin Negative (Negative)
[2025-04-29 19:31] VITALS: BP 144/87; PULSE 83; RESP 18; TEMP 36.6; O2SAT 96
[2025-04-29 20:02] VITALS: RESP 18
[2025-04-29 20:29] LABS: Glucose, Whole Blood 138 mg/dL (60-115)
[2025-04-29] MEDS: oxyCODONE HCl Immed Release 5 MG TABLET PO (22:17)
[2025-04-30] MEDS: 0.9 % Sodium Chloride Flush 3 ML SYRINGE IVFLUSH ×2 (00:10→08:00)
[2025-04-30 00:31] VITALS: RESP 16
[2025-04-30 01:01] VITALS: RESP 16
[2025-04-30 04:00] VITALS: BP 153/92; PULSE 86; RESP 18; TEMP 36.2; O2SAT 97
[2025-04-30 04:42] VITALS: RESP 18
[2025-04-30 05:41] VITALS: RESP 16
[2025-04-30 06:33] LABS: MANUAL DIFF FLAG NO
[2025-04-30 06:45] LABS: Hematocrit 30.6 % (42.0-52.0); Hemoglobin 9.8 g/dl (14.0-18.0); Imm Gran Abs Auto 0.02 X10*3/uL (0.00-0.03); Imm Gran Pct Auto 0.5 % (0.0-0.4); Lymphocytes Absolute Auto 1.2 X10*3/uL (1.2-4.9); Mean Corpuscular HGB Conc 32.0 g/dl (31.0-36.0); Mean Corpuscular Hemoglobin 26.8 pg (27.0-33.0); Mean Corpuscular Volume 83.8 fL (80.0-98.0); NRBC Abs Auto 0.000 X10*3/uL (0.0-0.012); NRBC Pct Auto 0.0 /100WBC (0.0-0.2); Platelet Count 169 X10*3/uL (160-400); Red Blood Count 3.65 X10*6/uL (4.60-5.80); White Blood Count 4.3 X10*3/uL (4.8-10.8)
[2025-04-30 07:10] LABS: Alanine Aminotransferase 18 U/L (0-40); Albumin Level 3.4 g/dL (3.5-5.0); Alkaline Phosphatase 92 U/L (39-117); Anion Gap 12 (12-20); Aspartate Amino Transferase 19 U/L (5-37); Blood Urea Nitrogen 17 mg/dL (9-16); Calcium 9.2 mg/dL (8.4-10.2); Carbon Dioxide 24 mmol/L (22-29); Chloride 113 mmol/L (96-108); Creatinine Clr Calc Pharmacy 98.0; Estimated Glomerular Filt Rate > 60; Potassium 4.1 mmol/L (3.3-5.1); Sodium 145 mmol/L (135-145); Total Protein 5.7 g/dL (6.5-8.0)
[2025-04-30 07:13] LABS: Glucose, Whole Blood 163 mg/dL (60-115)
[2025-04-30 07:16] VITALS: BP 140/89; PULSE 83; RESP 18; TEMP 36.1; O2SAT 95
[2025-04-30] MEDS: oxyCODONE HCl Immed Release 5 MG TABLET PO (07:53)
--- NOTE | 2025-04-30 07:59 | PM.PNGS ---
Subjective Subjective Date of Service: 04/30/25 Interval history: overall feeling improved. Pain is well controlled. swelling and redness have improved. He wants to go home because he is losing his home, electricity was turned off. Physical Exam Vital Signs: Vital Signs: Last Vital Signs Temp 97.0 F 04/30/25 07:16 Pulse 83 04/30/25 07:16 Resp 18 04/30/25 07:16 BP 140/89 H 04/30/25 07:16 Pulse Ox 95 04/30/25 07:16 O2 Del Method Room Air 04/30/25 07:16 BMI result Body Mass Index 39.2 Const: General: comfortable and no acute distress Orientation/consciousness: patient oriented x3 Resp: Effort & Inspection: normal respiratory effort and able to speak in complete sentences Neuro: General: patient oriented x3 Extrem: Other: LLE: improvement in erythema, some mild erythema on toes, minimal edema. Non tender. no open wounds, small scabbed wound on 4th toe previous left 1st and 2nd 5th toe amp General: Yes amputation noted (right BKA; partial toe amp 1st and 2nd) Objective Data Active Medications Acetaminophen (Acetaminophen 325 Mg Tablet) 650 mg PO Q6H PRN PRN Reason: Pain, Mild 1-3,fever,headache Last Admin: 04/27/25 20:02 Dose: 650 mg Documented By: LIZZ Albuterol/Ipratropium (Albuterol/Iprat 2.5/0.5mg 3 Ml Ampul.Neb) 3 ml INHALE Q4H PRN PRN Reason: Shortness of Breath/Wheezing Calcium Carbonate (Calcium Carbonate 750 Mg Tab.Chew) 750 mg PO Q4H PRN PRN Reason: Heartburn Dextrose (Dextrose 50 % 25 Gm/50 Ml Syringe) 25 gm IVPUSH Q15M PRN; Protocol PRN Reason: per Hypoglycemia Standing Ord. Glucose (Glucose Gel 15 Gm Gel..Gram.) 15 gm PO Q15M PRN; Protocol PRN Reason: per Hypoglycemia Standing Ord. Hydralazine HCl (Hydralazine Hcl 20 Mg/Ml Vial) 10 mg IVPUSH Q6H PRN; Protocol PRN Reason: SBP > 160 Hydromorphone HCl (Hydromorphone Hcl 1 Mg/Ml Syringe) 1 mg IVPUSH Q4H PRN; Protocol PRN Reason: Pain, Severe (Pain Scale 7-10) Last Admin: 04/30/25 04:42 Dose: 1 mg Documented By: FABIENNE Hydroxyzine HCl (Hydroxyzine Hcl 50 Mg Tablet) 50 mg PO TID [facility] Last Admin: 04/29/25 22:15 Dose: 50 mg Documented By: FABIENNE Piperacillin Sod/Tazobactam (Sod 4.5 gm/ Sodium Chloride) 100 mls @ 200 mls/hr IV Q6H [facility] Last Infusion: 04/30/25 04:14 Dose: Infused Documented By: FABIENNE Vancomycin HCl 750 mg/ Sodium (Chloride) 265 mls @ 265 mls/hr IV Q12H [facility] Last Infusion: 04/30/25 05:37 Dose: Infused Documented By: FABIENNE Insulin Human Lispro (Insulin Lispro 100 Unit/Ml 3 Ml Vial) 0 unit SUBCUT QIDACHS [facility]; Protocol Last Admin: 04/29/25 21:24 Dose: Not Given Documented By: FABIENNE Non-Admin Reason: No Insulin Coverage Magnesium Hydroxide (Milk Of Magnesia 30 Ml Oral.Susp) 30 ml PO DAILY PRN PRN Reason: Constipation Melatonin (Melatonin 3 Mg Tablet) 6 mg PO BEDTIME PRN PRN Reason: Insomnia Nicotine (Nicotine 7 Mg Patch.Td24) 7 mg TRANSDERMA DAILY [facility] Last Admin: 04/30/25 07:42 Dose: Not Given Documented By: MALCOLM Non-Admin Reason: Patient Refused Omeprazole (Omeprazole 40 Mg Capsule.) 40 mg PO BID@0630,1630 [facility] Last Admin: 04/30/25 05:37 Dose: 40 mg Documented By: FABIENNE Ondansetron HCl (Ondansetron Hcl 4 Mg/2 Ml Vial) 4 mg IVPUSH Q8H PRN PRN Reason: Nausea and Vomiting Oxycodone HCl (Oxycodone Hcl Immed Release 5 Mg Tablet) 5 mg PO Q6H PRN PRN Reason: Pain, Moderate(Pain Scale 4-6) Last Admin: 04/29/25 22:17 Dose: 5 mg Documented By: FABIENNE Pharmacy Consult (Consult Rx Vancomycin Dosing) 1 each MISCELLANE DAILY PRN PRN Reason: Consult order Polyethylene Glycol (Polyethylene Glycol 3350 17 Gm Powd.Pack) 17 gm PO DAILY PRN PRN Reason: Constipation Pregabalin (Pregabalin 75 Mg Capsule) 225 mg PO BID [facility] Last Admin: 04/29/25 22:15 Dose: 225 mg Documented By: FABIENNE Quetiapine Fumarate (Quetiapine Fumarate 300 Mg Tablet) 300 mg PO BEDTIME [facility] Last Admin: 04/29/25 22:16 Dose: 300 mg Documented By: FABIENNE Senna (Sennosides 8.6 Mg Tablet) 17.2 mg PO BEDTIME [facility] Last Admin: 04/29/25 22:19 Dose: Not Given Documented By: FABIENNE Non-Admin Reason: Patient Refused Sertraline HCl (Sertraline Hcl 50 Mg Tablet) 150 mg PO DAILY [facility] Last Admin: 04/29/25 08:00 Dose: 150 mg Documented By: PETEY Sodium Chloride (0.9 % Sodium Chloride Flush 3 Ml Syringe) 3 ml IVFLUSH QSHIFT [facility] Last Admin: 04/30/25 00:10 Dose: 3 ml Documented By: FABIENNE Labs 04/30/25 05:55 04/30/25 05:55 Labs: Laboratory Results - last 24 hr 04/29/25 04/29/25 04/29/25 11:34 14:18 14:57 MCV MCH MCHC RDW Plt Count MPV Immature Gran % (Auto) Neut % (Auto) Lymph % (Auto) [place] % (Auto) Eos % (Auto) Baso % (Auto) Lymph # (Auto) [place] # (Auto) Eos # (Auto) Baso # (Auto) Abs Immat Gran (auto) Absolute Neuts (auto) Absolute Nucleated RBC Nucleated RBC % (auto) Anion Gap Estim Creat Clear Calc Estimated GFR POC Glucose 212 H Random Glucose Calcium Total Bilirubin AST ALT Alkaline Phosphatase Total Protein Albumin Random Vancomycin 7.6 L C. difficile Tox B Gene POSITIVE A* C. difficile Toxin A&B Negative C. difficile Interpret SEE NOTE 04/29/25 04/29/25 04/30/25 16:23 20:25 05:55 MCV 83.8 MCH 26.8 L MCHC 32.0 RDW 14.1 Plt Count 169 MPV 11.1 Immature Gran % (Auto) 0.5 H Neut % (Auto) 58.8 Lymph % (Auto) 28.4 [place] % (Auto) 9.3 Eos % (Auto) 2.8 Baso % (Auto) 0.2 Lymph # (Auto) 1.2 [place] # (Auto) 0.4 Eos # (Auto) 0.1 Baso # (Auto) 0.0 Abs Immat Gran (auto) 0.02 Absolute Neuts (auto) 2.5 Absolute Nucleated RBC 0.000 Nucleated RBC % (auto) 0.0 Anion Gap 12 Estim Creat Clear Calc 98.0 Estimated GFR > 60 POC Glucose 99 138 H Random Glucose 171 H Calcium 9.2 Total Bilirubin 0.2 AST 19 ALT 18 Alkaline Phosphatase 92 Total Protein 5.7 L Albumin 3.4 L Random Vancomycin C. difficile Tox B Gene C. difficile Toxin A&B C. difficile Interpret 04/30/25 07:09 MCV MCH MCHC RDW Plt Count MPV Immature Gran % (Auto) Neut % (Auto) Lymph % (Auto) [place] % (Auto) Eos % (Auto) Baso % (Auto) Lymph # (Auto) [place] # (Auto) Eos # (Auto) Baso # (Auto) Abs Immat Gran (auto) Absolute Neuts (auto) Absolute Nucleated RBC Nucleated RBC % (auto) Anion Gap Estim Creat Clear Calc Estimated GFR POC Glucose 163 H Random Glucose Calcium Total Bilirubin AST ALT Alkaline Phosphatase Total Protein Albumin Random Vancomycin C. difficile Tox B Gene C. difficile Toxin A&B C. difficile Interpret Microbiology Microbiology Results: Microbiology 04/27/25 17:14 Blood Culture - Preliminary Blood - Venous No growth after 48 hours. 04/27/25 16:33 Blood Culture - Preliminary Blood - Venous No growth after 48 hours. Procedures Date of Service Date of Service: 04/30/25 Progress Note: A&P Assessment and plan (1) Osteomyelitis: Status: Acute (2) Cellulitis of left foot: Status: Acute Plan 40 year old male with a history of [id number] diabetes mellitus, peripheral vascular disease, status post right BKA, alcohol use, cocaine abuse, cirrhosis, Guillain-Stewart syndrome, left adrenal mass, peripheral neuropathy, GI bleed, bipolar disorder, PTSD, obesity, and sacral decubitus ulcer. admitted for management of cellulitis of LLE, osteomyelitis involving the 3rd toe. Overall improving since admission, experiencing minimal pain, swelling and redness improving. He denies pain currently. Denies fevers or chills. On exam there is mild erythema of the left toes. No open wounds, no draining. There is minimal edema of the lower extremity. He was perseverating about leaving due to losing his home. Patient needs vascualr consult prior to decision about amp. continue ABX, zosyn+vanco elevation of foot vascular consult pending, will hold off on surgical intervention until seen by Dr. Hernandez. Time Spent With Patient Time: Total time managing care of this patient today ____ minutes. Quality Stroke Does the patient have a stroke diagnosis?: No Reason for No Anti-thrombotic by Day Two: Contraindicated (held in case pt requires procedure in AM ) VTE Prior VTE?: No VTE Risk Level:: Medical - moderate - high VTE Device Contraindication: Treatment Not Indicated VTE Drug Contraindication: N/A - Med Ordered
--- NOTE | 2025-04-30 08:08 | P.DS_ITS ---
DS: Providers Provider Date of Service: 04/30/25 Date of admission: 04/27/25 18:58 Date of discharge: 04/30/25 Primary care physician: None Physician Consults: 04/27/25 19:34 Consult to Wound Care Routine Reason for consultation: Sacral wound opened 04/27/25 19:35 Consult to Vascular Surgery Routine Consulting Provider: [facility] Vascular Services Reason for consultation: PVD LLE infection cellulitis vs OM 04/27/25 19:36 Consult to General Surgery Routine Consulting Provider: [facility] General Surgeons Reason for consultation: LLE infection, ? amp 2 toes per pt 04/27/25 20:10 Consult to Infectious Diseases Routine Consulting Provider: [facility] Infectious Disease Center Reason for consultation: Cellulitis LLE, R stump [email or web address] 04/14 has been on dapto via PICC 04/29/25 12:29 Consult to Case Management Routine Comment: Impending homelessness and hearing in court DS: Diagnosis Discharge Diagnosis (1) Osteomyelitis: Status: Acute DS: Summary Hospital Course Hospital Course: History and physical as per admitting provider. 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 Pt was discharged 04/14 with PICC line in place and daptomycin for LLE cellulitis and chronic Sacral OM. Pt has been followed by [facility] in the home and self administers the Daptomycin as prescribed and has not missed any doses. Pt states the PICC line dressing was last changed 04/23. Pt denies any current fever, N/V, abd pain, but is reporting diarrhea that is considered chronic but pt has hx of CDIFF. Pt was followed by General Surgery last admission and there was consideration for amputation of digits ? but after results of arterial US completed, GEN SURG requested Vascualr consult prior to attempting surgery, Pt was not able to schedule recommended vascular appt as an outpatient as pt could not be seen last admission by vascular. Pt believes he was told that amputation of the 2 involved toes on left foot could clear this whole thing up and pt does not want to lose the foot. In the ED, venous dopplers were completed and it is negative for DVT in LLE. Pt was started on Vancomycin and Zosyn. Pt received dilaudid for pain. Pt has noted redness and warmth from Left toes up through mid lower leg area. There are no current opening in the Left foot and leg. Pt also has evidence of warmth and redness from the R stump and pt is reporting pain in both legs. Pt also has new opening in sacrum draining minimal cloudy drainage. Pt seen placing his finger in the wound. Both feet are soiled with black dirt. Pt will be facing eviction hearing May 10 and has plans to move in with [employer] or [address]. Pt denies any SI, HI, AH, VH currently but is easily overwhelmed and states if he didn't do cocaine once a month, he is not sure what would happen. Pt did not mention a specific plan to harm self or others. Pt deferred need for psychiatric eval at this time. Pt does continue to smoke and is requesting 7 mg nicotine patch to start in AM as it causes him insomnia when wearing at night. The patient has decided to leave against medical advice. He has normal mental status and adequate capacity to make medical decisions. The patient refuses hospital admission and wants to be discharged. The risks have been explained to the patient including worsening illness, chronic pain, permanent disability and even . The benefits of admission have also been explained including the availability of nurses, medical providers, close monitoring, IV medications, diagnostic imaging, treatments, etc.. The patient was able to understand and state the risks and benefits of hospital admission. The patient was given opportunities to ask questions prior to leaving. Cellulitis LLE, R stump cellulitis despite being on Daptomycin ?compliance chronic sacral wound. Patient should continue daptomycin until end date. Diet controlled DM2, A1c 6.4, well-controlled neuropathy - correction-dose lispro - diabetic diet - continue pregabalin TARIQ Addiction med consulted bipolar disorder/PTSD - continue hydroxyzine, quetiapine, sertraline Time Attestation Discharge Coordination Time (in mins): 30 Quality: Safe Use of Opioids Does Pt have an Active Cancer Diagnosis on the Problem List?: No Quality: Stroke Does the patient have a stroke diagnosis?: No Physical Exam Exam: Exam: Declined Vital Signs: Vital Signs: Last Vital Signs Temp 97.0 F 04/30/25 07:16 Pulse 83 04/30/25 07:16 Resp 18 04/30/25 07:16 BP 140/89 H 04/30/25 07:16 Pulse Ox 95 04/30/25 07:16 O2 Del Method Room Air 04/30/25 07:16 BMI result Body Mass Index 39.2 DS: Data Data Completed and Pending Completed studies during hospitalization [Text1]: Procedures Detoxification Services for Substance Abuse Treatment (02/18/25) Excision of Stomach, Pylorus, Via Natural or Artificial Opening Endoscopic, Diagnostic (03/08/25) Labs on day of discharge: Laboratory Results - last 24 hr 04/29/25 04/29/25 04/29/25 11:34 14:18 14:57 WBC RBC Hgb Hct MCV MCH MCHC RDW Plt Count MPV Immature Gran % (Auto) Neut % (Auto) Lymph % (Auto) [place] % (Auto) Eos % (Auto) Baso % (Auto) Lymph # (Auto) [place] # (Auto) Eos # (Auto) Baso # (Auto) Abs Immat Gran (auto) Absolute Neuts (auto) Absolute Nucleated RBC Nucleated RBC % (auto) Sodium Potassium Chloride Carbon Dioxide Anion Gap BUN Creatinine Estim Creat Clear Calc Estimated GFR POC Glucose 212 H Random Glucose Calcium Total Bilirubin AST ALT Alkaline Phosphatase Total Protein Albumin Random Vancomycin 7.6 L C. difficile Tox B Gene POSITIVE A* C. difficile Toxin A&B Negative C. difficile Interpret SEE NOTE 04/29/25 04/29/25 04/30/25 16:23 20:25 05:55 WBC 4.3 L RBC 3.65 L Hgb 9.8 L Hct 30.6 L MCV 83.8 MCH 26.8 L MCHC 32.0 RDW 14.1 Plt Count 169 MPV 11.1 Immature Gran % (Auto) 0.5 H Neut % (Auto) 58.8 Lymph % (Auto) 28.4 [place] % (Auto) 9.3 Eos % (Auto) 2.8 Baso % (Auto) 0.2 Lymph # (Auto) 1.2 [place] # (Auto) 0.4 Eos # (Auto) 0.1 Baso # (Auto) 0.0 Abs Immat Gran (auto) 0.02 Absolute Neuts (auto) 2.5 Absolute Nucleated RBC 0.000 Nucleated RBC % (auto) 0.0 Sodium 145 Potassium 4.1 Chloride 113 H Carbon Dioxide 24 Anion Gap 12 BUN 17 H Creatinine 1.22 Estim Creat Clear Calc 98.0 Estimated GFR > 60 POC Glucose 99 138 H Random Glucose 171 H Calcium 9.2 Total Bilirubin 0.2 AST 19 ALT 18 Alkaline Phosphatase 92 Total Protein 5.7 L Albumin 3.4 L Random Vancomycin C. difficile Tox B Gene C. difficile Toxin A&B C. difficile Interpret 04/30/25 07:09 WBC RBC Hgb Hct MCV MCH MCHC RDW Plt Count MPV Immature Gran % (Auto) Neut % (Auto) Lymph % (Auto) [place] % (Auto) Eos % (Auto) Baso % (Auto) Lymph # (Auto) [place] # (Auto) Eos # (Auto) Baso # (Auto) Abs Immat Gran (auto) Absolute Neuts (auto) Absolute Nucleated RBC Nucleated RBC % (auto) Sodium Potassium Chloride Carbon Dioxide Anion Gap BUN Creatinine Estim Creat Clear Calc Estimated GFR POC Glucose 163 H Random Glucose Calcium Total Bilirubin AST ALT Alkaline Phosphatase Total Protein Albumin Random Vancomycin C. difficile Tox B Gene C. difficile Toxin A&B C. difficile Interpret Preliminary micro results at discharge 04/27/25 17:14 Blood Culture - Preliminary Blood - Venous No growth after 48 hours. 04/27/25 16:33 Blood Culture - Preliminary Blood - Venous No growth after 48 hours. Discharge Plan Discharge Anticipated Discharge Date/Time: 04/30/25 07:32 Patient Disposition: Left Against Medical Advice Discharge Diagnosis: Cellulitis Referrals: Fei Hernandez MD [Physician, Vascular Surgery] - 1 Week Discharge Medications: Continued quetiapine 300 mg tablet 300 mg PO BEDTIME sertraline 100 mg tablet 150 mg PO DAILY hydroxyzine HCl 50 mg tablet 50 mg PO TID omeprazole 40 mg capsule,delayed release(DR/EC) 40 mg PO BID@0630,1630 pregabalin 225 mg capsule 225 mg PO BID loperamide [Anti-Diarrheal (loperamide)] 2 mg capsule 2 mg PO Q6H PRN (Reason: diarrhea) Qty: 30 0RF daptomycin 500 mg recon soln 500 mg IV DAILY Discharge Orders: Discharge Order (Routine); Ordered 04/30/25 Ordered By: Kassidy Benitez Diet: Advance to usual diet Activity on Discharge: As tolerated Stand Alone Forms: Patient Portal Discharge page Print Language: Swedish Care Plan Goals: The patient has decided to leave against medical advice. He has normal mental status and adequate capacity to make medical decisions. The patient refuses hospital admission and wants to be discharged. The risks have been explained to the patient including worsening illness, chronic pain, permanent disability and even . The benefits of admission have also been explained including the availability of nurses, medical providers, close monitoring, IV medications, diagnostic imaging, treatments, etc.. The patient was able to understand and state the risks and benefits of hospital admission. The patient was given opportunities to ask questions prior to leaving. Health Concerns: Cellulitis left lower extremity and right stump Osteomyelitis from previous admission, continue on daptomycin Plan of Treatment: Follow up with primary care provider as needed Follow up with vascular surgery regarding nonhealing wounds Take all medications as prescribed Assessment: See discharge summary Discharge Date/Time: 04/30/25 08:15
--- NOTE | 2025-04-30 08:15 | PC.NURSE ---
Upon SAFE-T assessment this morning, patient verbalized wanting to leave due to important things he needed to take care of at home. Patient agreeable to sign AMA paperwork. Denied need or desire to speak with provider. probation agentTIMO Enriquez spoke with patient regarding safe discharge and notified provider ARTIFICIAL FOLIAGE ARRANGER Kassidy Benitez. Kassidy Benitez arrived to bedside to discuss discharge. Patient agreeable to wait for a few hours to ensure safe transport. Patient agreeable to take morning medications- upon administration, patient informed primary care RN that he was able to arrange a safe ride home and was requesting to leave as soon as possible. Kassidy made aware and instructed probation agentTIMO Enriquez to advise patient to continue outpatient IV dapto as scheduled. Verbalized understanding. PICC line to right upper arm remained in place. Dressing and site clean, dry, and intact. Patient signed AMA form. Accompanied by hospital staff to lobby via wheelchair.
--- NOTE | 2025-04-30 08:43 | MHC.CM.PN ---
CM attempted to meet with patient. However, patient left AMA via private transport.
--- NOTE | 2025-05-02 02:15 | PC.NURSE ---
Late Entry: Pt given tylenol for pain score of 6/10 on 04/27/25 at 2001 per patient request as he had just received dilaudid recently and it was too soon for another dose. Pt wanted tylenol to help in between doses of dilaudid.
== END 2025-04-30 08:15 | disposition left against medical advice (07) | DRG 565 ==
LOC: HO.ED 16:31 → HO.EDOVER 19:16 → HO.S3 19:39
PROVIDERS: Nurse Practitioner Family; Student in an Organized Health Care Education/Training Program; Admitting Provider Internal Medicine; Emergency Provider Emergency Medicine; Visit Provider Nurse Practitioner Acute Care
DX: T87.43 Infection of amputation stump, right lower extremity (principal); L03.116 Cellulitis of left lower limb; M46.28 Osteomyelitis of vertebra, sacral and sacrococcygeal region; E11.42 Type 2 diabetes mellitus with diabetic polyneuropathy; E11.69 Type 2 diabetes mellitus with other specified complication; K80.20 Calculus of gallbladder without cholecystitis without obstruction; M16.11 Unilateral primary osteoarthritis, right hip; F14.10 Cocaine abuse, uncomplicated; F31.9 Bipolar disorder, unspecified; F43.10 Post-traumatic stress disorder, unspecified; F17.210 Nicotine dependence, cigarettes, uncomplicated; E11.628 Type 2 diabetes mellitus with other skin complications; Z71.6 Tobacco abuse counseling; Z99.3 Dependence on wheelchair; Z89.511 Acquired absence of right leg below knee; Z79.899 Other long term (current) drug therapy
CPT/HCPCS: 36415; 73552; 73590; 73610; 73630; 80053; 80202; 82550; 82947; 83605; 85025; 85652; 86140; 87040; 87324; 87493; 93005; 93971; 99285; J1171; J1885; J2543; J3373; J3374

== ENCOUNTER → 2025-04-27 14:34 | Outpatient (BNV) | payer MEDICARE, MEDICAID, SELFPAY | PROVIDERS: Admitting Provider Internal Medicine; Emergency Provider Emergency Medicine; Visit Provider Internal Medicine Cardiovascular Disease | DX: R94.31 Abnormal electrocardiogram [ECG] [EKG] (principal); R53.1 Weakness | CPT/HCPCS: 93010 ==

== ENCOUNTER → 2025-04-27 16:24 | Outpatient (BNV) | payer MEDICARE, MEDICAID, SELFPAY | PROVIDERS: Admitting Provider Internal Medicine; Emergency Provider Emergency Medicine; Visit Provider Radiology Diagnostic Radiology | DX: M79.605 Pain in left leg (principal); R22.42 Localized swelling, mass and lump, left lower limb; T87.43 Infection of amputation stump, right lower extremity; M85.872 Other specified disorders of bone density and structure, left ankle and foot; M85.862 Other specified disorders of bone density and structure, left lower leg; Z96.641 Presence of right artificial hip joint; M79.5 Residual foreign body in soft tissue | CPT/HCPCS: 73552; 73590; 73610; 73630; 93971 ==

== ENCOUNTER → 2025-04-27 18:58 | Outpatient (BNV) | payer MEDICARE, MEDICAID, SELFPAY | PROVIDERS: Admitting Provider Internal Medicine; Emergency Provider Emergency Medicine; Visit Provider Surgery | DX: M86.9 Osteomyelitis, unspecified (principal); L03.116 Cellulitis of left lower limb | CPT/HCPCS: 99222; 99232 ==

== ENCOUNTER → 2025-04-27 18:58 | Outpatient (BNV) | payer MEDICARE, MEDICAID, SELFPAY | PROVIDERS: Admitting Provider Internal Medicine; Emergency Provider Emergency Medicine; Visit Provider Nurse Practitioner Family | DX: M86.9 Osteomyelitis, unspecified (principal) | CPT/HCPCS: 99238 ==

== ENCOUNTER 2025-05-10 18:54 | Outpatient (REF) | payer MEDICARE, MEDICAID, SELFPAY ==
--- OUTSIDE RECORDS SUMMARY | 2025-05-10 18:56 | XMS_ITS | Clinical Summary ---
Author Organization [facility] Address [address] [place] [id number] Phone Care Team Providers Care Dressing Room Attendant Name Role Phone Rosa Sepulveda NP Primary Care Provider +1- [phone] Allergies Active Allergy Reactions Criticality Noted Date Comments Baclofen Hives Medium 06/20/2019 Lidocaine 04/02/2020 Topical,states steward his skin off [id number]-[id number] en 09/13/2019 Diclofenac Sodium 02/08/2020 Topical,states steward [...] file Insurance MEDICARE PART A & B [facility] MEDICARE PART A & [place] & B [facility] MEDICARE PART A & B HEALTH MEDICARE PART A & B HEALTH Care Teams Dressing Room Attendant Relationship Specialty Start Date End Date Rosa Sepulveda NP [address] [place] [id number] PCP - General Family Medicine 09/13/19 Additional Source Comments The information contained in this document represents components of the legal health record. It is not the complete legal health record.[facility]
--- OUTSIDE RECORDS SUMMARY | 2025-05-10 18:56 | XMS_ITS | Encounter Summary ---
Author Organization [facility] Address [address] [place] [address] Care Team Providers Care Sustainability Purchasing Agent Name Role Phone Rosa Sepulveda NP Primary Care Provider +1- [phone] Encounter Details Date Type Department Care Team (Late st Contact Info) Description 07/08/[address] [facility] Plastic & Reconstructive Surgery [address] [place] [address] David Corrales MD [address] [place] [id number] Social History Tobacco Use Types Packs/Day Years [...] on filedocumented in this encounter Care Teams Sustainability Purchasing Agent Relationship Specialty Start Date End Date Rosa Sepulveda NP [address] [place] [address] PCP - General 05/09/19 documented as of this encounter
--- OUTSIDE RECORDS SUMMARY | 2025-05-10 18:56 | XMS_ITS | Encounter Summary ---
Author Organization [facility] Address [address] [place] [address] Care Team Providers Care Title Department Manager Name Role Phone Rosa Sepulveda NP Primary Care Provider +1- [phone] Encounter Details Date Type Department Care Team ([facility] st Contact Info) Description 07/23/2020 Scanned Document [facility] Plastic & Reconstructive Surgery [address] [place] [id number] David Corrales MD [address] [place] [address] Social History Tobacco Use Types Packs/Day Years [...] on filedocumented in this encounter Care Teams Title Department Manager Relationship Specialty Start Date End Date Rosa Sepulveda NP [address] [place] [phone] PCP - General 05/09/19 documented as of this encounter
--- OUTSIDE RECORDS SUMMARY | 2025-05-10 18:56 | XMS_ITS | Encounter Summary ---
Author Organization [facility] Address [address] [address] Phone Care Team Providers Care Folder Hand Name Role Phone Rosa Sepulveda NP Primary Care Provider +1- [phone] Encounter Details Date Type Department Care Team ([facility] st Contact Info) Description 05/27/2020 [facility] [place] Admitting Dept - Virtual Department [address] [place] [address] Social History Tobacco Use Types Packs/Day Years [...] on filedocumented in this encounter Care Teams Folder Hand Relationship Specialty Start Date End Date Rosa Sepulveda NP [address] [place] [id number] PCP - General Family Medicine 09/13/19 documented as of this encounter Additional Source Comments The information contained in this document represents components of the legal health record. It is not the complete legal health record.[facility]
--- OUTSIDE RECORDS SUMMARY | 2025-05-10 18:56 | XMS_ITS | Clinical Summary ---
Author Organization [facility] Address [address] [place] [address] Care Team Providers Care Grand Jury Deputy Sheriff Name Role Phone Rosa Sepulveda NP Primary Care Provider +1- [phone] Allergies Active Allergy Reactions Criticality Noted Date [...] Vaccines (1 - 3-dose SCDM series) 2010 Influenza Vaccine 03/23/2025 COVID-19 Vaccine (1 - 2023- season) 2025 Insurance MEDICARE PART A & B MEDICAID OUT OF STATE [facility] [place] [place] [id number] Advance Directives * Full Code (Latest Code Status on File) Date Activated Date Inactivated Comments 06/19/2019 11:45 AM 07/11/2019 11:50 AM Care Teams Grand Jury Deputy Sheriff Relationship Specialty Start Date End Date Rosa Sepulvdea NP [address] [place] [address] PCP - General 05/09/19
--- OUTSIDE RECORDS SUMMARY | 2025-05-10 18:56 | XMS_ITS | Encounter Summary ---
Author Organization [facility] Address [address] [place] [address] Care Team Providers Care Lead Software Test Engineer Name Role Phone Rosa Sepulveda FINANCIAL AID OFFICER Primary Care Provider +1- [phone] Encounter Details Date Type Department Care Team (Late st Contact Info) Description 04/11/2020 Scanned Document [facility] Plastic & Reconstructive Surgery [address] [place] [address] David Corrales MD [address] [place] [address] Social History Tobacco Use Types Packs/Day Years [...] on filedocumented in this encounter Care Teams Lead Software Test Engineer Relationship Specialty Start Date End Date Rosa Sepulveda NP [address] [place] [address] PCP - General 05/09/19 documented as of this encounter
--- OUTSIDE RECORDS SUMMARY | 2025-05-10 18:56 | XMS_ITS | Encounter Summary ---
Author Organization [facility] Address [address] [place] [address] Care Team Providers Care Medical Insurance Verifier Name Role Phone Rosa Sepulveda NP Primary Care Provider +1- [phone] Encounter Details Date Type Department Care Team (Late st Contact Info) Description 07/17/2019 Scanned Document [facility] Plastic & Reconstructive Surgery [address] [place] [address] David Corrales MD [address] [place] [address] Social History Tobacco Use Types Packs/Day Years [...] documented as of this encounter Care Teams Medical Insurance Verifier Relationship Specialty Start Date End Date Rosa Sepulveda NP [address] [place] [address] PCP - General 05/09/19 documented as of this encounter
--- OUTSIDE RECORDS SUMMARY | 2025-05-10 18:56 | XMS_ITS | Encounter Summary ---
Author Organization [facility] Address [address] [address] Phone Care Team Providers Care Boat Loader Name Role Phone Rosa Sepulveda NP Primary Care Provider +1- [phone] Encounter Details Date Type Department Care Team ([facility] st Contact Info) Description 05/27/2020 Procedure Pass [place] Admitting Dept - Virtual Department [address] [place] [address] Social History Tobacco Use Types Packs/Day Years [...] on filedocumented in this encounter Care Teams Boat Loader Relationship Specialty Start Date End Date Rosa Sepulveda NP [address] [place] [address] PCP - General Family Medicine 09/13/19 documented as of this encounter Additional Source Comments The information contained in this document represents components of the legal health record. It is not the complete legal health record.[facility]
--- OUTSIDE RECORDS SUMMARY | 2025-05-10 18:56 | XMS_ITS | Encounter Summary ---
Author Organization [facility] Address [address] [place] [address] Care Team Providers Care Credit Control Administrator Name Role Phone Rosa Sepulveda SCRAP COLLECTOR Primary Care Provider +1- [phone] Encounter Details Date Type Department Care Team (Late st Contact Info) Description 04/11/2020 Scanned Document [facility] Plastic & Reconstructive Surgery [address] [place] [address] David Corrales MD [address] [place] [address] Social History Tobacco Use Types Packs/Day Years [...] on filedocumented in this encounter Care Teams Credit Control Administrator Relationship Specialty Start Date End Date Rosa Sepulveda NP [address] [place] [address] PCP - General 05/09/19 documented as of this encounter
[2025-05-10 18:57] LABS: MANUAL DIFF FLAG NO
[2025-05-10 19:02] LABS: Hematocrit 39.8 % (42.0-52.0); Hemoglobin 12.7 g/dl (14.0-18.0); Imm Gran Abs Auto 0.04 X10*3/uL (0.00-0.03); Imm Gran Pct Auto 0.5 % (0.0-0.4); Lymphocytes Absolute Auto 2.0 X10*3/uL (1.2-4.9); Mean Corpuscular HGB Conc 31.9 g/dl (31.0-36.0); Mean Corpuscular Hemoglobin 26.1 pg (27.0-33.0); Mean Corpuscular Volume 81.9 fL (80.0-98.0); NRBC Abs Auto 0.000 X10*3/uL (0.0-0.012); NRBC Pct Auto 0.0 /100WBC (0.0-0.2); Platelet Count 272 X10*3/uL (160-400); Red Blood Count 4.86 X10*6/uL (4.60-5.80); White Blood Count 8.1 X10*3/uL (4.8-10.8)
[2025-05-10 19:14] LABS: Anion Gap 15 (12-20); Blood Urea Nitrogen 10 mg/dL (9-16); Calcium 9.1 mg/dL (8.4-10.2); Carbon Dioxide 26 mmol/L (22-29); Chloride 107 mmol/L (96-108); Potassium 3.8 mmol/L (3.3-5.1); Sodium 144 mmol/L (135-145)
[2025-05-16 11:48] LABS: Estimated Glomerular Filt Rate > 60
--- OUTSIDE RECORDS SUMMARY | 2025-05-16 13:42 | XMS_ITS | Encounter Summary ---
Author Organization [facility] Address [address] [place] [address] Care Team Providers Care Resource Recovery Specialist Name Role Phone Rosa Sepulveda NP Primary Care Provider +1- [phone] Encounter Details Date Type Department Care Team (Late st Contact Info) Description 07/08/2020 [facility] Plastic & Reconstructive Surgery [address] [place] [address] David Corrales MD [address] [place] [address] Social History Tobacco Use Types Packs/Day Years [...] on filedocumented in this encounter Care Teams Resource Recovery Specialist Relationship Specialty Start Date End Date Rosa Sepulveda NP [address] [place] [address] PCP - General 05/09/19 documented as of this encounter
--- OUTSIDE RECORDS SUMMARY | 2025-05-16 13:43 | XMS_ITS | Encounter Summary ---
Author Organization [facility] Address [address] [place] [address] Care Team Providers Care Chummer Name Role Phone Rosa Sepulveda DRILLING FOREMAN Primary Care Provider +1- [phone] Encounter Details Date Type Department Care Team (Late st Contact Info) Description 04/11/2020 Scanned Document [facility] Plastic & Reconstructive Surgery [address] [place] [address] David Corrales MD [address] [place] [address] Social History Tobacco Use Types Packs/Day Years [...] on filedocumented in this encounter Care Teams Chummer Relationship Specialty Start Date End Date Rosa Sepulveda NP [address] [place] [address] PCP - General 05/09/19 documented as of this encounter
--- OUTSIDE RECORDS SUMMARY | 2025-05-16 13:43 | XMS_ITS | Encounter Summary ---
Author Organization [facility] Address [address] [place] [address] Care Team Providers Care Human Resources District Manager Name Role Phone Rosa Sepulveda NP Primary Care Provider +1- [phone] Encounter Details Date Type Department Care Team ([facility] st Contact Info) Description 07/23/[address] [facility] Plastic & Reconstructive Surgery [address] [place] [address] David Corrales MD [address] [place] [address] Social History Tobacco Use Types Packs/Day Years [...] on filedocumented in this encounter Care Teams Human Resources District Manager Relationship Specialty Start Date End Date Rosa Sepulveda NP [address] [place] [address] PCP - General 05/09/19 documented as of this encounter
--- OUTSIDE RECORDS SUMMARY | 2025-05-16 13:43 | XMS_ITS | Encounter Summary ---
Author Organization [facility] Address [address] [place] [address] Care Team Providers Care Locator Name Role Phone Rosa Sepulveda NP Primary Care Provider +1- [phone] Encounter Details Date Type Department Care Team (Late st Contact Info) Description 07/17/2019 Scanned Document [facility] Plastic & Reconstructive Surgery [address] [place] [phone] David Corrales MD [address] [place] [address] Social History Tobacco Use Types Packs/Day Years [...] documented as of this encounter Care Teams Locator Relationship Specialty Start Date End Date Rosa Sepulveda NP [address] [place] [address] PCP - General 05/09/19 documented as of this encounter
--- OUTSIDE RECORDS SUMMARY | 2025-05-16 13:44 | XMS_ITS | Encounter Summary ---
Author Organization [facility] Address [address] [place] [address] Care Team Providers Care Intellectual Property Manager Name Role Phone Rosa Sepulveda COMMANDING OFFICER MOTORIZED SQUAD Primary Care Provider +1- [phone] Encounter Details Date Type Department Care Team (Late st Contact Info) Description 04/11/2020 Scanned Document [facility] Plastic & Reconstructive Surgery [address] [place] [address] David Corrales MD [address] [place] [address] Social History Tobacco Use Types Packs/Day Years [...] on filedocumented in this encounter Care Teams Intellectual Property Manager Relationship Specialty Start Date End Date Rosa Sepulveda NP [address] [place] [address] PCP - General 05/09/19 documented as of this encounter
--- OUTSIDE RECORDS SUMMARY | 2025-05-16 13:44 | XMS_ITS | Clinical Summary ---
Author Organization [facility] Address [address] [place] [phone] Phone Care Team Providers Care Senior Java J2Ee Developer Name Role Phone Physician, No Pcp Primary Care Provider Unavaila ble Allergies Active Allergy Reactions Criticality Noted Date Comments Acetaminophen 03/20/2022 Baclofen Hives Medium 06/20/2019 Diclofenac Sodium 02/08/2020 Topical,states steward skin off Lidocaine 03/20/2022 Topical cream [place] Unknown 02/21/2025 Hx lithium toxicity Metformin 03/20/2022 Morphine Hives 02/21/2025 Tramadol Unknown 05/03/2025 Medications CHOLECALCIFERO L, VITAMIN D3, ORAL Cholecalciferol [...] time each day. 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 Encounters Date Type Department Care Team Description 05/03/2025 9:34 AM EDT - 05/03/2025 11:23 AM EDT Emergency [facility] Emergency [address] [place] [phone] Kenton Panchal MD Fall, initial encounter (Primary Dx); Contusion of left hip, initial encounter Discharge Disposition: Home or Self Care 02/21/2025 10:38 PM EDT - 02/25/2025 10:49 AM EDT Hospital Encounter [facility] Intermediate Care Unit [address] [place] [phone] Salvador Oleary MD Jones, Christopher, MD Rasul, Yar M, MD Pressure injury of skin of sacral region, unspecified injury stage (Primary Dx); Failure to thrive in adult; Falls; Alcohol withdrawal syndrome with complication ([facility] V24, [facility] V28) Discharge Disposition: Home-Health Care c from Last 3 Months Surgical History Surgery Date Site/Laterality Comments OTHER SURGICAL HISTORY PROCEDURE: RI ANESTHESIA OPEN HIP JOINT PROCEDURE NOS Medical History Medical History Date Comments Anxiety DX:Anxiety PTSD (post-traumatic stress disorder) DX:PTSD (post-traumatic stress disorder) 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) DM (diabetes mellitus) ([facility] V24, [facility] V28) History of right lower extre mity amputation ([facility] V24, [facility] V28) Social History Tobacco Use Types Packs/Day [...] Sign Reading Time Taken Comments Blood Pressure 134/100 05/03/2025 9:41 AM EDT Pulse 100 05/03/2025 9:41 AM EDT Temperature 36.7 C (98.1 F) 05/03/2025 9:41 AM EDT Respiratory Rate 17 05/03/2025 9:41 AM EDT Oxygen Saturation 98% 05/03/2025 9:41 AM EDT Inhaled Oxygen Concentration - - Weight 122 kg (270 lb) 05/03/2025 9:41 AM EDT Height 185.4 cm (6' 1 ) 05/03/2025 9:41 AM EDT Body Mass Index 35.62 05/03/2025 9:41 AM EDT Plan of Treatment Health Maintenance [...] 02/25/2026 02/25/2025, 02/24/2025, 02/23/2025, Additional history exists RSV Immunization Adult Patients (1 - 1-dose 75+ series) 2058 HIB Vaccines Aged Out No longer eligi [...] Procedure Name Priority Date/Time Associated Diagnosis Comments XR HIP 2-3 VIEWS LEFT STAT 05/03/2025 10:32 AM EDT POCT GLUCOSE BLOOD Routine 02/25/2025 7: 35 [...] EDT from Last 3 Months Results * XR Hip 2-3 Views Left (05/03/2025 10:32 AM EDT) Anatomical Region Laterality Modality Lower Extremities, Hip Left Radiograp hic Imaging 05/03/2025 10:4 4 AM EDT Narrative 05/03/2025 10:46 AM EDT INDICATION: Left hip pain after fall FINDINGS: 2 views of the left hip were obtained including a single view of the pelvis. Compared to study from April 09, 2024. Joint space narrowing with degenerative changes of the left hip. No evidence of fracture or dislocation. No radiopaque foreign body or periosteal reaction is noted. No significant soft tissue abnormality. Well-positioned total hip replacement. Bony structures are osteopenic. CONCLUSION: No left hip fracture or dislocation. No significant change from the prior study. -------- FINAL REPORT -------- Dictated By: Anthony Hammer Dictated Date: 05/03/2025 10:44 ET Assigned Physician: Anthony Hammer Reviewed and Electronically Signed By: Anthony Hammer Signed Date: 05/03/2025 10:46 ET Workstation ID: [id number] Transcribed By: Self Edit Transcribed Date: 05/03/2025 10:44 ET Procedure Note Anthony Hammer MD - 05/03/2025 INDICATION: Left hip pain after fall FINDINGS: 2 views of the left hip were obtained including a single view ofthe pelvis. Compared to study from April 09, 2024. Joint space narrowing with degenerative changes of the left hip. No evidence of fracture or dislocation. No radiopaque foreign body or periosteal reaction is noted. No significant soft tissue abnormality. Well-positioned total hip replacement. Bony structures are osteopenic. CONCLUSION: No left hip fracture or dislocation. No significant change from the prior study. -------- FINAL REPORT -------- Dictated By: Anthony Hammer Dictated Date: 05/03/2025 10:44 ET Assigned Physician: Anthony Hammer Reviewed and Electronically Signed By: Anthony Hammer Signed Date: 05/03/2025 10:46 ET Workstation ID: [id number] Transcribed By: Self Edit Transcribed Date: 05/03/2025 10:44 ET Kenton Panchal MD IMG XR PROCEDURES Final Res ult * POCT Glucose, blood (02/25/2025 7:35 AM EDT) Only the most recent of12 resultswithin the time period is included. Glucose POCT 91 70 - 100 mg/dL 02/25/2025 7:35 AM EDT [facility] Blood Capillary blood specimen / Unknown 02/25/2025 7:35 AM EDT 02/25/2025 7:36 AM EDT Alex Retana MD LAB POINT OF CARE TE ST DOCKED DEVICE UNSOLICITED RESULTS Final Result [facility] [address] [place] [address], [place] [phone] * (ABNORMAL) Basic metabolic panel (02/25/2025 6:24 AM EDT) Only the most recent of4 resultswithin the time period is included. Sodium 137 133 - 145 mmol/L LAB CHEMISTRY METHOD 02/25/2025 7:28 AM EDT [facility] Potassium 3.6 3.5 - 5.5 mmol/L LAB CHEMISTRY METHOD 02/25/2025 7:28 AM [facility] Chloride 104 96 - 110 mmol/L LAB CHEMISTRY METHOD 02/25/2025 7:28 AM [facility] CO2 27 21 - 32 mmol/L LAB CHEMISTRY METHOD 02/25/2025 7:28 AM [facility] Anion Gap 6 3 - 11 LAB CHEMISTRY METHOD 02/25/2025 7:28 AM [facility] Glucose 157(H) 70 - 100 mg/dL LAB CHEMISTRY METHOD 02/25/2025 7:28 AM [facility] BUN 6 5 - 25 mg/dL LAB CHEMISTRY METHOD 02/25/2025 7:28 AM [facility] Creatinine 0.62(L) 0.70 - 1.30 mg/dL LAB CHEMISTRY METHOD 02/25/2025 7:28 AM [facility] eGFR 122 >=60 mL/min/1. 73m2 LAB CHEMISTRY METHOD 02/25/2025 7:28 AM [facility] Comment:Calculation based on the Chronic Kidney Disease Epidemiology Collaboration (CKD-EPI) equation refit without adjustment for race. BUN/Creatinine Ratio 9.7 LAB CHEMISTRY METHOD 02/25/2025 7:28 AM [facility] Calcium 8.9 8.5 - 10.5 mg/dL LAB CHEMISTRY METHOD 02/25/2025 7:28 AM [facility] Blood Venous blood specimen / Unknown Venipuncture / Unknown 02/25/2025 6:24 AM EDT 02/25/2025 6:49 AM EDT us Alex Retana MD LAB BLOOD ORDERABLES Final Resul t [facility] [address] [place] [address], [place] [phone] * (ABNORMAL) CBC auto differential (02/25/2025 6:23 AM EDT) Only the most recent of5 resultswithin the time period is included. [facility] Signature WBC 4.9 4.8 - 10.8 K/mcL LAB HEMETOLOGY METHOD 02/25/2025 7:15 AM [facility] RBC 3.70(L) 4.50 - 5.50 M/mcL LAB HEMETOLOGY METHOD 02/25/2025 7:15 AM EDT [...] % LAB HEMETOLOGY METHOD 02/25/2025 7:15 AM T [facility] NRBC Absolute 0.00 <0.10 K/mcL LAB HEMETOLOGY METHOD 02/25/2025 7:15 AM [facility] Neutrophils Relative 81.6 % LAB HEMETOLOGY METHOD 02/25/2025 7:15 AM [facility] Lymphocytes Relative 11.3 % LAB HEMETOLOGY METHOD 02/25/2025 7:15 AM [facility] Monocytes Relative 4.9 % LAB HEMETOLOGY METHOD 02/25/2025 7:15 AM [facility] Eosinophils Relative 1.4 % LAB HEMETOLOGY METHOD 02/25/2025 7:15 AM [facility] Basophils Relative 0.4 % LAB HEMETOLOGY METHOD 02/25/2025 7:15 AM [facility] Immature Granulocytes Relative 0.4 % LAB HEMETOLOGY METHOD 02/25/2025 7:15 AM [facility] Neutrophils Absolute 4.03 1.50 - 7.00 K/mcL LAB HEMETOLOGY METHOD 02/25/2025 7:15 AM [facility] Lymphocytes Absolute 0.56(L) 1.00 - 5.00 K/mcL LAB HEMETOLOGY METHOD 02/25/2025 7:15 AM [facility] Monocytes Absolute 0.24 0.20 - 1.00 K/mcL LAB HEMETOLOGY METHOD 02/25/2025 7:15 AM [facility] Eosinophils Absolute 0.07 0.00 - 0.50 K/mcL LAB HEMETOLOGY METHOD 02/25/2025 7:15 AM [facility] Basophils Absolute 0.02 0.00 - 0.20 K/mcL LAB HEMETOLOGY METHOD 02/25/2025 7:15 AM [facility] Immature Granulocytes Absolute 0.02 0.00 - 0.03 K/mcL LAB HEMETOLOGY METHOD 02/25/2025 7:15 AM EDT [facility] Blood Venous blood specimen / Unknown Venipuncture / Unknown 02/25/2025 6:23 AM EDT 02/25/2025 6:48 AM EDT Alex Retana MD LAB BLOOD ORDERABLES Final Resul t Performing Organization Address [facility]/ZIP Co de Phone Number [facility] [address] [place] [address], [place] [phone] * Culture blood (02/22/2025 8:45 AM EDT) [...] GENERAL ORDERABLES Final Result Performing Organization Address [facility] Co de Phone Number [facility] [address] [place] [address], [place] [phone] * (ABNORMAL) Lactate (02/22/2025 5:03 AM EDT) Lactate 2.3(H) 0.4 - 2.0 mmol/L LAB CHEMISTRY METHOD 02/22/2025 5:37 AM EDT [facility] Blood Venous blood specimen / Unknown Venipuncture / Unknown 02/22/2025 5:03 AM EDT 02/22/2025 5:08 AM EDT us David Alexander MD LAB BLOOD ORDERABLES Final Result Performing Organization Address City/[facility] Co de Phone Number [facility] [address] [place] [address], [place] [phone] * (ABNORMAL) Lactate, with reflex (02/22/2025 2:17 [...] BLOOD ORDERABLES Final Result Performing Organization Address [facility] de Phone Number [facility] [address] [place] [address], * CT Chest/Abdomen/Pelvis w Contrast (02/22/2025 12:46 [...] with reflex microscopic (02/22/2025 12:09 AM EDT) Pathologist [facility] Specific [place] Urine 1.022 1.003 - 1.030 LAB URINALYSIS [...] 12:53 AM EDT [facility] RBC, Urine 2.9 0 - 4 /HPF LAB URINALYSIS - AUTOMATED METHOD 02/22/2025 12:53 AM EDT [facility] WBC, Urine 3.2 0 - 4 /HPF LAB URINALYSIS - AUTOMATED METHOD 02/22/2025 12:53 AM EDT [facility] Squamous Epithelial, Urine 29 0 - 60 /LPF LAB URINALYSIS - AUTOMATED METHOD 02/22/2025 12:53 AM EDT [facility] Bacteria, Urine Negative Negative /HPF LAB URINALYSIS - AUTOMATED METHOD 02/22/2025 12:53 AM [facility] Hyaline Casts, Urine 2.8 0 - 3 /LPF LAB URINALYSIS - AUTOMATED METHOD 02/22/2025 12:53 AM [facility] Urine Urine specimen obtained by clean catch procedure / Unknown Non-blood Collection / Unknown 02/22/2025 12:09 AM EDT 02/22/2025 12:46 AM EDT us Salvador Oleary MD LAB URINE ORDERABLES Final Result [facility] [address] [place] [address], * (ABNORMAL) Drug abuse screen 8a panel, urine (02/22/2025 12:09 AM EDT) Amphetamine Screen, Ur Negative Negative LAB CHEMISTRY METHOD 1:23 AM EDT [facility] Comment:Certain OTC medicati ons containing ephedrine, phenylephrine, pseudoephedrine and phenylpropanolamine can cause false positive results. Barbiturate Screen, Ur Positive(A ) Negative LAB CHEMISTRY METHOD 1:23 AM EDT [facility] Benzodiazepine Screen, Ur Negative Negative LAB CHEMISTRY METHOD 5 1:23 AM EDT [facility] Cocaine Screen, Ur Negative Negative LAB CHEMISTRY METHOD 5 1:23 AM [facility] Opiate Screen, Ur Negative Negative LAB CHEMISTRY METHOD 5 1:23 AM [facility] Cannabinoid (THC) Screen, Ur Negative Negative LAB CHEMISTRY METHOD 5 1:23 AM T [facility] Comment:Specimens from patie nts taking pantoprazole sodium (Protonix) have been shown to produce false positive results. Oxycodone Screen, Ur Negative Negative LAB CHEMISTRY METHOD 5 1:23 AM [facility] Fentanyl, Ur Negative Negative LAB CHEMISTRY METHOD 5 1:23 AM [facility] Urine Urine specimen obtained by clean catch procedure / Unknown Non-blood Collection / Unknown 02/22/2025 12:09 AM EDT 02/22/2025 12:46 AM EDT Narrative [facility] - 02/22/2025 1:23 AM [...] Final Result [facility] [address] [place] [address], * Buprenorphine screen, urine (02/22/2025 12:09 AM EDT) Buprenorphine Screen Urine Negative Negative LAB CHEMISTRY METHOD 02/22/2025 1:23 AM T [facility] Urine Urine specimen obtained by clean catch procedure / Unknown Non-blood Collection / Unknown 02/22/2025 12:09 AM EDT 02/22/2025 12:46 AM EDT Narrative [facility] - 02/22/2025 1:23 AM EDT Assay cutoff 5 ng/mL Semi-quantitative assay for screening purposes only. Unconfirmed screening result should not be used for non-medical purposes. *ALTERNATE METHOD CONFIRMATION DONE UPON REQUEST ONLY* Salvador Oleary MD LAB URINE ORDERABLES Final Result Performing Organization Address [facility]/ZIP Co de Phone Number [facility] [address] [place] [address], [place] [phone] * Methadone, urine (02/22/2025 12:09 AM EDT) [...] URINE ORDERABLES Final Result Performing Organization Address City/[facility]/ZIP Co de Phone Number [facility] [address] [place] [address], [place] [phone] * Phencyclidine, urine (02/22/2025 12:09 AM EDT) [...] URINE ORDERABLES Final Result Performing Organization Address City/[facility]/ZIP Co de Phone Number [facility] [address] [place] [address], [place] [phone] * ECG 12 lead (02/21/2025 11:59 PM EDT) Ventricular Rate ECG 105 BPM GEMUSE Atrial Rate 105 BPM GEMUSE P-R Interval 138 ms GEMUSE QRS Duration 76 ms GEMUSE Q-T Interval 344 ms GEMUSE QTc 454 ms GEMUSE P Wave [place] 31 degrees GEMUSE R [place] -21 degrees GEMUSE T [place] 0 degrees GEMUSE ECG Interpretation Sinus tachycardia [...] Signed Date: 02/22/2025 08:47 ET Workstation ID: [id number] Transcribed By: Self Edit Transcribed Date: 02/22/2025 [...] Signed Date: 02/22/2025 08:47 ET Workstation ID: [id number] Transcribed By: Self Edit Transcribed Date: 02/22/2025 [...] * C-reactive protein (02/21/2025 11:01 PM EDT) [facility] C-Reactive Protein 0.34 <=0.50 mg/dL LAB CHEMISTRY METHOD 02/22/2025 4:20 AM EDT [facility] Blood Venous blood specimen / Unknown Venipuncture / Unknown 02/21/2025 11:01 PM EDT 02/21/2025 11:32 PM EDT David Alexander MD LAB BLOOD ORDERABLES Final Result Performing Organization Address [facility] Co de Phone Number [facility] [address] [place] [address], * (ABNORMAL) Magnesium (02/21/2025 11:01 PM EDT) [facility] Magnesium 1.3(L) 1.9 - 2.6 mg/dL LAB CHEMISTRY METHOD 02/22/2025 12:28 AM EDT [facility] Comment:Hemolysis present Blood Venous blood specimen / Unknown Venipuncture / Unknown 02/21/2025 11:01 PM EDT 02/21/2025 11:32 PM EDT Salvador Oleary MD LAB BLOOD ORDERABLES Final Result [facility] [address] [place] [address], [place] [phone] * Lipase (02/21/2025 11:01 PM EDT) Lipase 21 13 - 75 unit/L LAB CHEMISTRY METHOD 02/22/2025 12:28 AM EDT [facility] Blood Venous blood specimen / Unknown Venipuncture / Unknown 02/21/2025 11:01 PM EDT 02/21/2025 11:32 PM EDT us Salvador Oleary MD LAB BLOOD ORDERABLES Final Result [facility] [address] [place] [address], [place] [phone] * (ABNORMAL) Ethanol (02/21/2025 11:01 PM EDT) Ethanol Level 79(H) 0 - 10 mg/dL LAB CHEMISTRY METHOD 02/22/2025 12:28 AM EDT [facility] Blood Venous blood specimen / Unknown Venipuncture / Unknown 02/21/2025 11:01 PM EDT 02/21/2025 11:32 PM EDT us Salvador Oleary MD LAB BLOOD ORDERABLES Final Result [facility] [address] [place] [address], [place] [phone] * (ABNORMAL) Acetaminophen level (02/21/2025 11:01 PM EDT) Acetaminophen Level <2.0(L) 10.0 - 30.0 mcg/mL LAB CHEMISTRY METHOD 02/22/2025 12:28 AM EDT [facility] Blood Venous blood specimen / Unknown Venipuncture / Unknown 02/21/2025 11:01 PM EDT 02/21/2025 11:32 PM EDT us Salvador Oleary MD LAB BLOOD ORDERABLES Final Result Performing Organization Address [facility]/ZIP Co de Phone Number [facility] [address] [place] [address], [place] [phone] * (ABNORMAL) Salicylate level (02/21/2025 11:01 PM EDT) Pathologist [facility] Salicylate Level <1.7(L) 2.0 - 29.0 mg/dL LAB CHEMISTRY METHOD 02/22/2025 12:28 AM EDT [facility] Blood Venous blood specimen / Unknown Venipuncture / Unknown 02/21/2025 11:01 PM EDT 02/21/2025 11:32 PM EDT us Salvador Oleary MD LAB BLOOD ORDERABLES Final Result Performing Organization Address [facility]/ZIP Co de Phone Number [facility] [address] [place] [address], [place] [phone] * (ABNORMAL) Comprehensive metabolic panel (02/21/2025 11:01 PM EDT) Pathologist [facility] Sodium 142 133 - 145 mmol/L LAB CHEMISTRY METHOD 02/22/2025 12:28 AM T [facility] Potassium 3.4(L) 3.5 - 5.5 mmol/L LAB CHEMISTRY METHOD 02/22/2025 12:28 AM EDT [facility] Comment:Hemolysis present Chloride 103 96 - 110 mmol/L LAB CHEMISTRY METHOD 02/22/2025 12:28 AM [facility] CO2 25 21 - 32 mmol/L LAB CHEMISTRY METHOD 02/22/2025 12:28 AM T [facility] Anion Gap 14(H) 3 - 11 LAB CHEMISTRY METHOD 02/22/2025 12:28 AM EDT [facility] Glucose 118(H) 70 - [...] MD LAB BLOOD ORDERABLES Final Result [facility] [address] [place] [address], from Last 3 Months Insurance MEDICARE MEDICAID [...] currently active code status orders. Care Teams Senior Java J2Ee Developer Relationship Specialty Start Date End Date Physician, No Pcp PCP - General 02/22/25
--- OUTSIDE RECORDS SUMMARY | 2025-05-16 13:46 | XMS_ITS | Encounter Summary ---
Author Organization [facility] Address [address] [address] Phone Care Team Providers Care Credit Or Loans Officer Name Role Phone Rosa Sepulveda NP Primary Care Provider +1- [phone] Encounter Details Date Type Department Care Team ([facility] st Contact Info) Description 05/27/2020 Procedure Pass OR Admitting Dept - Virtual Department [address] [place] [address] Social History Tobacco Use Types Packs/Day Years [...] filedocumented in this encounter Care Teams Credit Or Loans Officer Relationship Specialty Start Date End Date Rosa Sepulveda NP [address] [place] [phone] PCP - General Family Medicine 09/13/19 documented as of this encounter Additional Source Comments The information contained in this document represents components of the legal health record. It is not the complete legal health record.[facility]
--- OUTSIDE RECORDS SUMMARY | 2025-05-16 13:46 | XMS_ITS | Encounter Summary ---
Author Organization [facility] Address [address] [address] Phone Care Team Providers Care Funeral Home Makeup Artist Name Role Phone Rosa Sepulveda NP Primary Care Provider +1- [phone] Encounter Details Date Type Department Care Team ([facility] st Contact Info) Description 05/27/2020 Procedure Pass [place] Admitting Dept - Virtual Department [address] [place] [address] Social History Tobacco Use Types Packs/Day Years [...] on filedocumented in this encounter Care Teams Funeral Home Makeup Artist Relationship Specialty Start Date End Date Rosa Sepulveda NP [address] [place] [phone] PCP - General Family Medicine 09/13/19 documented as of this encounter Additional Source Comments The information contained in this document represents components of the legal health record. It is not the complete legal health record.[facility]
--- OUTSIDE RECORDS SUMMARY | 2025-05-16 13:50 | XMS_ITS | Clinical Summary ---
Author Organization [facility] Address [address] [place] [address] Phone Care Team Providers Care Product Safety Officer Name Role Phone Rosa Sepulveda NP Primary Care Provider +1- [phone] Allergies Active Allergy Reactions Criticality Noted Date Comments Baclofen Hives Medium 06/20/2019 Lidocaine 04/02/2020 Topical,states steward his skin off Jov-Begtpbyhvii-Vxazsbvlilo en 09/13/2019 Diclofenac Sodium 02/08/2020 Topical,states steward [...] file Insurance MEDICARE PART A & B [facility] MEDICARE PART A & B [place] & [place] & B [facility] MEDICARE PART A & B HEALTH MEDICARE PART A & B HEALTH Care Teams Product Safety Officer Relationship Specialty Start Date End Date Rosa Sepulveda NP [address] [place] [phone] PCP - General Family Medicine 09/13/19 Additional Source Comments The information contained in this document represents components of the legal health record. It is not the complete legal health record.[facility]
== END 2025-05-10 18:55 | disposition home or self-care (01) ==
LOC: HO.LNP 18:54
PROVIDERS: Visit Provider Student in an Organized Health Care Education/Training Program
DX: M86.02 Acute hematogenous osteomyelitis, humerus (principal)
CPT/HCPCS: 80048; 82550; 85025

== ENCOUNTER 2025-05-21 16:55 | Emergency (ER) | payer MEDICARE, MEDICAID, SELFPAY ==
[2025-05-21 17:04] VITALS: BP 145/94; PULSE 88; RESP 16; TEMP 36.4; O2SAT 97
[2025-05-21 17:06] VITALS: BP 145/94; BP 162/105; PULSE 100; PULSE 96; RESP 18; TEMP 36.4; O2SAT 98; BMI 34.0
--- NOTE | 2025-05-21 17:47 | PC.NURSE ---
40 M presents to ED with n/v x 2 weeks, blood in vomit and stool x 1 week, Left abdomen/central abdomen pain, L foot pain, concerns for osteomylitis flare up in foot. Pain 8/10, has chronic back pain as well. A+Ox4, calm, cooperative. R BKA. Pt denies Cp or SOB. RR even and unlabored.
[2025-05-21 17:54] LABS: MANUAL DIFF FLAG NO
[2025-05-21 17:56] LABS: Hematocrit 41.2 % (42.0-52.0); Hemoglobin 13.6 g/dl (14.0-18.0); Imm Gran Abs Auto 0.04 X10*3/uL (0.00-0.03); Imm Gran Pct Auto 0.5 % (0.0-0.4); Lymphocytes Absolute Auto 1.6 X10*3/uL (1.2-4.9); Mean Corpuscular HGB Conc 33.0 g/dl (31.0-36.0); Mean Corpuscular Hemoglobin 26.4 pg (27.0-33.0); Mean Corpuscular Volume 80.0 fL (80.0-98.0); NRBC Abs Auto 0.000 X10*3/uL (0.0-0.012); NRBC Pct Auto 0.0 /100WBC (0.0-0.2); Platelet Count 209 X10*3/uL (160-400); Red Blood Count 5.15 X10*6/uL (4.60-5.80); White Blood Count 7.5 X10*3/uL (4.8-10.8)
[2025-05-21 18:00] VITALS: BP 148/103; PULSE 90; RESP 16; TEMP 36.7; O2SAT 98
[2025-05-21 18:02] LABS: INTERNATIONAL NORM RATIO 1.1 (0.9-1.1); Prothrombin Time 12.9 SEC (10.9-12.4)
[2025-05-21 18:09] LABS: Alanine Aminotransferase 49 U/L (0-40); Albumin Level 4.8 g/dL (3.5-5.0); Alkaline Phosphatase 86 U/L (39-117); Anion Gap 14 (12-20); Aspartate Amino Transferase 51 U/L (5-37); Blood Urea Nitrogen 13 mg/dL (9-16); Calcium 9.7 mg/dL (8.4-10.2); Carbon Dioxide 22 mmol/L (22-29); Chloride 112 mmol/L (96-108); Creatinine Clr Calc Pharmacy 195.2; Estimated Glomerular Filt Rate > 60; Magnesium 1.9 mg/dL (1.6-2.6); Potassium 4.4 mmol/L (3.3-5.1); Sodium 144 mmol/L (135-145); Total Protein 7.8 g/dL (6.5-8.0)
--- OUTSIDE RECORDS SUMMARY | 2025-05-21 18:38 | XMS_ITS | Clinical Summary ---
Author Organization [facility] Address [address] [place] [id number] Phone Care Team Providers Care Actuarial Analyst Name Role Phone Physician, No Pcp Primary Care Provider Unavaila ble Allergies Active Allergy Reactions Criticality Noted Date Comments Acetaminophen 03/20/2022 Baclofen Hives Medium 06/20/2019 Diclofenac Sodium 02/08/2020 Topical,states steward skin off Lidocaine 03/20/2022 Topical cream [place] Unknown 02/21/2025 Hx lithium toxicity Metformin 03/20/2022 [...] Problem Noted Date Diagnosed Date Alcohol withdrawal ([facility] V24, [facility] V28) Depression 05/14/2022 Diabetes mellitus ([facility] V24, [facility] V28) 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 Encounters Date Type Department Care Team Description 05/03/2025 9:34 AM EDT - 05/03/2025 11:23 AM EDT Emergency [facility] [address] [place] [id number] Kenton Panchal MD Fall, initial encounter (Primary Dx); Contusion of left hip, initial encounter Discharge Disposition: Home or Self Care 02/21/2025 10:38 PM EDT - 02/25/2025 10:49 AM EDT Hospital Encounter [facility] [address] [place] [phone] Salvador Oleary MD Jones, Christopher, MD Rasul, Yar M, MD Pressure injury of skin of sacral region, unspecified injury stage (Primary Dx); Failure to thrive in adult; Falls; Alcohol withdrawal syndrome with complication ([facility] V24, [facility] V28) Discharge Disposition: Home-Health Care c from Last 3 Months Surgical History Surgery Date Site/Laterality Comments OTHER SURGICAL HISTORY PROCEDURE: [place] ANESTHESIA OPEN HIP JOINT PROCEDURE NOS Medical History Medical History Date Comments Anxiety DX:Anxiety PTSD (post-traumatic stress disorder) DX:PTSD (post-traumatic stress disorder) 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) DM (diabetes mellitus) ([facility] V24, [facility] V28) History of right lower extre mity amputation ([facility] V24, [facility] V28) Social History Tobacco Use Types Packs/Day Years Used Date Smoking Tobacco: Some Days Smokeless Tobacco: Never Alcohol Use Standard Drinks/Week Comments Never 0 (1 standard drink = 0.6 oz pur e alcohol) Interpersonal Safety Answer Date Record ed Physical Abuse Unrecognized value 02/22/2025 Verbal Abuse Unrecognized value 02/22/2025 Sex and Gender Information Value Date [...] Signed Date: 05/03/2025 10:46 ET Workstation ID: [id number] Transcribed By: Self Edit Transcribed Date: 05/03/2025 [...] Signed Date: 05/03/2025 10:46 ET Workstation ID: [id number] Transcribed By: Self Edit Transcribed Date: 05/03/2025 10:44 ET Kenton Panchal MD IMG XR PROCEDURES Final Res ult * POCT Glucose, blood (02/25/2025 7:35 AM EDT) Only the most recent of12 resultswithin the time period is included. Glucose POCT 91 70 - 100 mg/dL 02/25/2025 7:35 AM EDT [facility] Blood Capillary blood specimen / Unknown 02/25/2025 7:35 AM EDT 02/25/2025 7:36 AM EDT Alex Retana MD LAB POINT OF CARE TE ST DOCKED DEVICE UNSOLICITED RESULTS Final Result [facility] [address] [place] [address], [place] [phone] * (ABNORMAL) Basic metabolic panel (02/25/2025 6:24 AM EDT) Only the most recent of4 resultswithin the time period is included. Sodium 137 133 - 145 mmol/L LAB CHEMISTRY METHOD 02/25/2025 7:28 AM EDT [facility] Potassium 3.6 3.5 - 5.5 mmol/L LAB CHEMISTRY METHOD 02/25/2025 7:28 AM [facility] Chloride 104 96 - 110 mmol/L LAB CHEMISTRY METHOD 02/25/2025 7:28 AM [facility] CO2 27 21 - 32 mmol/L LAB CHEMISTRY METHOD 02/25/2025 7:28 AM [facility] Anion Gap 6 3 - 11 LAB CHEMISTRY METHOD 02/25/2025 7:28 AM [facility] Glucose 157(H) 70 - 100 mg/dL LAB CHEMISTRY METHOD 02/25/2025 7:28 AM [facility] BUN 6 5 - 25 mg/dL LAB CHEMISTRY METHOD 02/25/2025 7:28 AM [facility] Creatinine 0.62(L) 0.70 - 1.30 mg/dL LAB CHEMISTRY METHOD 02/25/2025 7:28 AM [facility] eGFR 122 >=60 mL/min/1. 73m2 LAB CHEMISTRY METHOD 02/25/2025 7:28 AM [facility] Comment:Calculation based on the Chronic Kidney Disease Epidemiology Collaboration (CKD-EPI) equation refit without adjustment for race. BUN/Creatinine Ratio 9.7 LAB CHEMISTRY METHOD 02/25/2025 7:28 AM [facility] Calcium 8.9 8.5 - 10.5 mg/dL LAB CHEMISTRY METHOD 02/25/2025 7:28 AM [facility] Blood Venous blood specimen / Unknown Venipuncture / Unknown 02/25/2025 6:24 AM EDT 02/25/2025 6:49 AM EDT us Alex Retana MD LAB BLOOD ORDERABLES Final Resul t [facility] [address] [place] [address], [place] [phone] * (ABNORMAL) CBC auto differential (02/25/2025 6:23 AM EDT) Only the most recent of5 resultswithin the time period is included. WBC 4.9 4.8 - 10.8 K/mcL LAB HEMETOLOGY METHOD 02/25/2025 7:15 AM [facility] RBC 3.70(L) 4.50 - 5.50 M/mcL LAB HEMETOLOGY METHOD 02/25/2025 7:15 AM [facility] Hemoglobin 11.3(L) 13.5 - 17.5 g/dL LAB HEMETOLOGY METHOD 02/25/2025 7:15 AM [facility] Hematocrit 33.9(L) 42.0 - 54.0 % LAB HEMETOLOGY METHOD 02/25/2025 7:15 AM [facility] MCV 91.6 79.0 - 98.0 FL LAB HEMETOLOGY METHOD 02/25/2025 7:15 AM [facility] MCH 30.5 27.0 - 32.0 pcg LAB HEMETOLOGY METHOD 02/25/2025 7:15 AM [facility] MCHC 33.3 32.0 - 37.0 g/dL LAB HEMETOLOGY METHOD 02/25/2025 7:15 AM [facility] RDW 16.9(H) 11.0 - 15.0 % LAB HEMETOLOGY METHOD 02/25/2025 7:15 AM [facility] Platelets 112(L) 130 - 400 K/mcL LAB HEMETOLOGY METHOD 02/25/2025 7:15 AM [facility] MPV 12.3(H) 7.0 - 11.0 FL LAB HEMETOLOGY METHOD 02/25/2025 7:15 AM [facility] NRBC 0.0 <1.0 % LAB HEMETOLOGY METHOD 02/25/2025 7:15 AM [facility] NRBC Absolute 0.00 <0.10 K/mcL LAB HEMETOLOGY METHOD 02/25/2025 7:15 AM [facility] Neutrophils Relative 81.6 % LAB HEMETOLOGY METHOD 02/25/2025 7:15 AM [facility] Lymphocytes Relative 11.3 % LAB HEMETOLOGY METHOD 02/25/2025 7:15 AM [facility] Monocytes Relative 4.9 % LAB HEMETOLOGY METHOD 02/25/2025 7:15 AM [facility] Eosinophils Relative 1.4 % LAB HEMETOLOGY METHOD 02/25/2025 7:15 AM [facility] Basophils Relative 0.4 % LAB HEMETOLOGY METHOD 02/25/2025 7:15 AM [facility] Immature Granulocytes Relative 0.4 % LAB HEMETOLOGY METHOD 02/25/2025 7:15 AM [facility] Neutrophils Absolute 4.03 1.50 - 7.00 K/mcL LAB HEMETOLOGY METHOD 02/25/2025 7:15 AM [facility] Lymphocytes Absolute 0.56(L) 1.00 - 5.00 K/mcL LAB HEMETOLOGY METHOD 02/25/2025 7:15 AM [facility] Monocytes Absolute 0.24 0.20 - 1.00 K/mcL LAB HEMETOLOGY METHOD 02/25/2025 7:15 AM [facility] Eosinophils Absolute 0.07 0.00 - 0.50 K/mcL LAB HEMETOLOGY METHOD 02/25/2025 7:15 AM [facility] Basophils Absolute 0.02 0.00 - 0.20 K/mcL LAB HEMETOLOGY METHOD 02/25/2025 7:15 AM [facility] Immature Granulocytes Absolute 0.02 0.00 - 0.03 K/mcL LAB HEMETOLOGY METHOD 02/25/2025 7:15 AM EDT [facility] Blood Venous blood specimen / Unknown Venipuncture / Unknown 02/25/2025 6:23 AM EDT 02/25/2025 6:48 AM EDT Alex Retana MD LAB BLOOD ORDERABLES Final Resul t Performing Organization Address City/[facility]/ZIP Co de Phone Number [facility] [address] [place] [address], [place] [phone] * Culture blood (02/22/2025 8:45 AM EDT) Only the most recent of2 resultswithin the time period is included. Culture, Blood No growth at 5 days LAB MICROBIOLOGY METHOD 02/27/2025 9:01 AM EDT [facility] Blood Venous blood specimen / Unknown Venipuncture / Unknown 02/22/2025 8:45 AM EDT 02/22/2025 8:49 AM EDT us David Alexander MD LAB MICROBIOLOGY - GENERAL ORDERABLES Final Result Performing Organization Address City/[facility]/ZIP Co de Phone Number [facility] [address] [place] [address], [place] [phone] * (ABNORMAL) Lactate (02/22/2025 5:03 AM EDT) Lactate 2.3(H) 0.4 - 2.0 mmol/L LAB CHEMISTRY METHOD 02/22/2025 5:37 AM EDT [facility] Blood Venous blood specimen / Unknown Venipuncture / Unknown 02/22/2025 5:03 AM EDT 02/22/2025 5:08 AM EDT us David Alexander MD LAB BLOOD ORDERABLES Final Result Performing Organization Address [facility]/ZIP Co de Phone Number [facility] [address] [place] [address], [place] [phone] * (ABNORMAL) Lactate, with reflex (02/22/2025 2:17 AM EDT) Only the most recent of2 resultswithin the time period is included. LACTIC ACID 3.3(HH) 0.4 - 2.0 mmol/L LAB CHEMISTRY METHOD 02/22/2025 3:11 AM EDT [facility] Blood Venous blood specimen / Unknown Venipuncture / Unknown 02/22/2025 2:17 AM EDT 02/22/2025 2:22 AM EDT Salvador Oleary MD LAB BLOOD ORDERABLES Final Result Performing Organization Address [facility] Co de Phone Number [facility] [address] [place] [address], [place] [phone] * CT Chest/Abdomen/Pelvis w Contrast (02/22/2025 12:46 [...] reflex microscopic (02/22/2025 12:09 AM EDT) Pathologist [facility] Specific [place] Urine 1.022 1.003 - 1.030 LAB URINALYSIS - AUTOMATED METHOD 02/22/2025 12:53 AM [facility] pH, Urine 6.0 5.0 - 8.0 pH LAB URINALYSIS - AUTOMATED METHOD 02/22/2025 12:53 AM [facility] Leukocytes, Urine Negative Negative LAB URINALYSIS - AUTOMATED METHOD 02/22/2025 12:53 AM [facility] Nitrite, Urine Negative Negative LAB URINALYSIS - AUTOMATED METHOD 02/22/2025 12:53 AM [facility] Protein, Urine 30(A) <=Trace mg/dL LAB URINALYSIS - AUTOMATED METHOD 02/22/2025 12:53 AM [facility] Glucose, Urine Negative Negative mg/dL LAB URINALYSIS - AUTOMATED METHOD 02/22/2025 12:53 AM [facility] Ketones, Urine Trace(A) Negative mg/dL LAB URINALYSIS - AUTOMATED METHOD 02/22/2025 12:53 AM [facility] Urobilinogen, Urine 0.2 0.2 - 1.0 mg/dL LAB URINALYSIS - AUTOMATED METHOD 02/22/2025 12:53 AM [facility] Bilirubin, Urine Negative Negative LAB URINALYSIS - AUTOMATED METHOD 02/22/2025 12:53 AM [facility] Blood, Urine Negative Negative LAB URINALYSIS - AUTOMATED METHOD 02/22/2025 12:53 AM EDT [facility] RBC, Urine 2.9 0 - 4 /HPF LAB URINALYSIS - AUTOMATED METHOD 02/22/2025 12:53 AM EDT [facility] WBC, Urine 3.2 0 - 4 /HPF LAB URINALYSIS - AUTOMATED METHOD 02/22/2025 12:53 AM EDT [facility] Squamous Epithelial, Urine 29 0 - 60 /LPF LAB URINALYSIS - AUTOMATED METHOD 02/22/2025 12:53 AM EDT [facility] Bacteria, Urine Negative Negative /HPF LAB URINALYSIS - AUTOMATED METHOD 02/22/2025 12:53 AM [facility] Hyaline Casts, Urine 2.8 0 - 3 /LPF LAB URINALYSIS - AUTOMATED METHOD 02/22/2025 12:53 AM T [facility] Urine Urine specimen obtained by clean catch procedure / Unknown Non-blood Collection / Unknown 02/22/2025 12:09 AM EDT 02/22/2025 12:46 AM EDT Salvador Oleary MD LAB URINE ORDERABLES Final Result Performing Organization Address [facility]/State/ZIP Co de Phone Number [facility] [address] [place] [address], * (ABNORMAL) Drug abuse screen 8a panel, urine (02/22/2025 12:09 AM EDT) Amphetamine Screen, Ur Negative Negative LAB CHEMISTRY METHOD 1:23 AM EDT [facility] Comment:Certain OTC medicati ons containing ephedrine, phenylephrine, pseudoephedrine and phenylpropanolamine can cause false positive results. Barbiturate Screen, Ur Positive(A ) Negative LAB CHEMISTRY METHOD 5 1:23 AM EDT [facility] Benzodiazepine Screen, Ur Negative Negative LAB CHEMISTRY METHOD 5 1:23 AM EDT [facility] Cocaine Screen, Ur Negative Negative LAB CHEMISTRY METHOD 5 1:23 AM [facility] Opiate Screen, Ur Negative Negative LAB CHEMISTRY METHOD 5 1:23 AM [facility] Cannabinoid (THC) Screen, Ur Negative Negative LAB CHEMISTRY METHOD 5 1:23 AM T [facility] Comment:Specimens from patie nts taking pantoprazole sodium (Protonix) have been shown to produce false positive results. Oxycodone Screen, Ur Negative Negative LAB CHEMISTRY METHOD 5 1:23 AM [facility] Fentanyl, Ur Negative Negative LAB CHEMISTRY METHOD 5 1:23 AM [facility] Urine Urine specimen obtained by clean catch procedure / Unknown Non-blood Collection / Unknown 02/22/2025 12:09 AM EDT 02/22/2025 12:[address] [facility] - 02/22/2025 1:23 AM EDT [...] Oleary MD LAB URINE ORDERABLES Final Result [facility] [address] [place] [address], * Buprenorphine screen, urine (02/22/2025 12:09 AM EDT) Buprenorphine Screen Urine Negative Negative LAB CHEMISTRY METHOD 02/22/2025 1:23 AM EDT [facility] Urine Urine specimen obtained by clean catch procedure / Unknown Non-blood Collection / Unknown 02/22/2025 12:09 AM EDT 02/22/2025 12:46 AM EDT Narrative [facility] - 02/22/2025 1:23 AM EDT Assay cutoff 5 ng/mL Semi-quantitative assay for screening purposes only. Unconfirmed screening result should not be used for non-medical purposes. *ALTERNATE METHOD CONFIRMATION DONE UPON REQUEST ONLY* us Salvador Oleary MD LAB URINE ORDERABLES Final Result Performing Organization Address [facility] de Phone Number [facility] [address] [place] [address], [place] [phone] * Methadone, urine (02/22/2025 12:09 AM EDT) Methadone Screen, Urine Negative Negative LAB CHEMISTRY METHOD 02/22/2025 1:23 AM EDT [facility] Comment: Assay cutoff 300 ng/mL Semi-quantitative assay for screening purposes only. Unconfirmed screening result should not be used for non-medical purposes. *ALTERNATE METHOD CONFIRMATION DONE UPON REQUEST ONLY* Urine Urine specimen obtained by clean catch procedure / Unknown Non-blood Collection / Unknown 02/22/2025 12:09 AM EDT 02/22/2025 12:46 AM EDT Salvador Oleary MD LAB URINE ORDERABLES Final Result Performing Organization Address City/[facility]/ZIP Co de Phone Number [facility] [address] [place] [address], [place] [phone] * Phencyclidine, urine (02/22/2025 12:09 AM EDT) PCP Scrn, Ur Negative Negative LAB CHEMISTRY METHOD 02/22/2025 1:23 AM EDT [facility] Comment: Assay cutoff 25 ng/mL Semi-quantitative assay for screening purposes only. Unconfirmed screening result should not be used for non-medical purposes. *ALTERNATE METHOD CONFIRMATION DONE UPON REQUEST ONLY* Urine Urine specimen obtained by clean catch procedure / Unknown Non-blood Collection / Unknown 02/22/2025 12:09 AM EDT 02/22/2025 12:46 AM EDT Salvador Oleary MD LAB URINE ORDERABLES Final Result Performing Organization Address City/[facility]/ZIP Co de Phone Number [facility] [address] [place] [address], [place] [phone] * ECG 12 lead (02/21/2025 11:59 PM EDT) Ventricular Rate ECG 105 BPM GEMUSE Atrial Rate 105 BPM GEMUSE P-R Interval 138 ms GEMUSE QRS Duration 76 ms GEMUSE Q-T Interval 344 ms GEMUSE QTc 454 ms GEMUSE P Wave [place] 31 degrees GEMUSE R [place] -21 degrees GEMUSE T [place] 0 degrees GEMUSE ECG Interpretation Sinus tachycardia [...] 9 PM EDT 02/22/2025 12:54 PM EDT Salvdaor Oleary MD ECG ORDERABLES Final Resul t [...] Signed Date: 02/22/2025 08:47 ET Workstation ID: [id number] Transcribed By: Self Edit Transcribed Date: 02/22/2025 [...] Signed Date: 02/22/2025 08:47 ET Workstation ID: [id number] Transcribed By: Self Edit Transcribed Date: 02/22/2025 [...] * C-reactive protein (02/21/2025 11:01 PM EDT) [facility] C-Reactive Protein 0.34 <=0.50 mg/dL LAB CHEMISTRY METHOD 02/22/2025 4:20 AM EDT [facility] Blood Venous blood specimen / Unknown Venipuncture / Unknown 02/21/2025 11:01 PM EDT 02/21/2025 11:32 PM EDT David Alexander MD LAB BLOOD ORDERABLES Final Result Performing Organization Address [facility] Co de Phone Number [facility] [address] [place] [address], * (ABNORMAL) Magnesium (02/21/2025 11:01 PM EDT) [facility] Magnesium 1.3(L) 1.9 - 2.6 mg/dL LAB CHEMISTRY METHOD 02/22/2025 12:28 AM EDT [facility] Comment:Hemolysis present Blood Venous blood specimen / Unknown Venipuncture / Unknown 02/21/2025 11:01 PM EDT 02/21/2025 11:32 PM EDT Salvador Oleary MD LAB BLOOD ORDERABLES Final Result Performing Organization Address City/[facility]/ZIP Co de Phone Number [facility] [address] [place] [address], [place] [phone] * Lipase (02/21/2025 11:01 PM EDT) Lipase 21 13 - 75 unit/L LAB CHEMISTRY METHOD 02/22/2025 12:28 AM EDT [facility] Blood Venous blood specimen / Unknown Venipuncture / Unknown 02/21/2025 11:01 PM EDT 02/21/2025 11:32 PM EDT us Salvador Oleary MD LAB BLOOD ORDERABLES Final Result Performing Organization Address [facility] Co de Phone Number [facility] [address] [place] [address], [place] [phone] * (ABNORMAL) Ethanol (02/21/2025 11:01 PM EDT) Pathologist [facility] Ethanol Level 79(H) 0 - 10 mg/dL LAB CHEMISTRY METHOD 02/22/2025 12:28 AM EDT [facility] Blood Venous blood specimen / Unknown Venipuncture / Unknown 02/21/2025 11:01 PM EDT 02/21/2025 11:32 PM EDT Salvador Oleary MD LAB BLOOD ORDERABLES Final Result Performing Organization Address [facility]/ZIP Co de Phone Number [facility] [address] [place] [address], [place] [phone] * (ABNORMAL) Acetaminophen level (02/21/2025 11:01 PM EDT) Acetaminophen Level <2.0(L) 10.0 - 30.0 mcg/mL LAB CHEMISTRY METHOD 02/22/2025 12:28 AM EDT [facility] Blood Venous blood specimen / Unknown Venipuncture / Unknown 02/21/2025 11:01 PM EDT 02/21/2025 11:32 PM EDT us Salvador Oleary MD LAB BLOOD ORDERABLES Final Result Performing Organization Address [facility]/ZIP Co de Phone Number [facility] [address] [place] [address], [place] [phone] * (ABNORMAL) Salicylate level (02/21/2025 11:01 PM EDT) Pathologist [facility] Salicylate Level <1.7(L) 2.0 - 29.0 mg/dL LAB CHEMISTRY METHOD 02/22/2025 12:28 AM EDT [facility] Blood Venous blood specimen / Unknown Venipuncture / Unknown 02/21/2025 11:01 PM EDT 02/21/2025 11:32 PM EDT us Salvador Oleary MD LAB BLOOD ORDERABLES Final Result Performing Organization Address [facility]/ZIP Co de Phone Number [facility] [address] [place] [address], [place] [phone] * (ABNORMAL) Comprehensive metabolic panel (02/21/2025 11:01 PM EDT) Pathologist [facility] Sodium 142 133 - 145 mmol/L LAB CHEMISTRY METHOD 02/22/2025 12:28 AM T [facility] Potassium 3.4(L) 3.5 - 5.5 mmol/L LAB CHEMISTRY METHOD 02/22/2025 12:28 AM EDT [facility] Comment:Hemolysis present Chloride 103 96 - 110 mmol/L LAB CHEMISTRY METHOD 02/22/2025 12:28 AM EDT [facility] CO2 25 21 - 32 mmol/L LAB CHEMISTRY METHOD 02/22/2025 12:28 AM [facility] Anion Gap 14(H) 3 - 11 LAB CHEMISTRY METHOD 02/22/2025 12:28 [facility] Glucose 118(H) 70 - 100 mg/dL LAB CHEMISTRY METHOD 02/22/2025 12:28 AM [facility] BUN 7 5 - 25 mg/dL LAB CHEMISTRY METHOD 02/22/2025 12:28 AM [facility] Creatinine 0.67(L) 0.70 - 1.30 mg/dL LAB CHEMISTRY METHOD 02/22/2025 12:28 AM [facility] eGFR 120 >=60 mL/min/1. 73m2 LAB CHEMISTRY METHOD 02/22/2025 12:28 AM [facility] Comment:Calculation based on the Chronic Kidney Disease Epidemiology Collaboration (CKD-EPI) equation refit without adjustment for race. BUN/Creatinine Ratio 10.4 LAB CHEMISTRY METHOD 02/22/2025 12:28 AM [facility] Calcium 8.9 8.5 - 10.5 mg/dL LAB CHEMISTRY METHOD 02/22/2025 12:28 AM [facility] AST (SGOT) 55(H) 10 - 42 unit/L LAB CHEMISTRY METHOD 02/22/2025 12:28 AM [facility] Comment:Hemolysis present ALT (SGPT) 60 10 - 60 unit/L LAB CHEMISTRY METHOD 02/22/2025 12:28 AM [facility] Alkaline Phosphatase 115 42 - 121 unit/L LAB CHEMISTRY METHOD 02/22/2025 12:28 AM [facility] Total Protein 6.8 6.0 - 8.0 g/dL LAB CHEMISTRY METHOD 02/22/2025 12:28 AM [facility] Albumin 3.5 3.2 - 5.0 g/dL LAB CHEMISTRY METHOD 02/22/2025 12:28 AM [facility] Total Bilirubin 0.3 0.0 - 1.4 mg/dL LAB CHEMISTRY METHOD 02/22/2025 12:28 AM EDT [facility] Blood Venous blood specimen / Unknown Venipuncture / Unknown 02/21/2025 11:01 PM EDT 02/21/2025 11:32 PM EDT Salvador Oleary MD LAB BLOOD ORDERABLES Final Result [facility] [address] [place] [address], from Last 3 Months Insurance MEDICARE MEDICAID [...] currently active code status orders. Care Teams Actuarial Analyst Relationship Specialty Start Date End Date Physician, No Pcp PCP - General 02/22/25
--- OUTSIDE RECORDS SUMMARY | 2025-05-21 18:39 | XMS_ITS | Encounter Summary ---
Author Organization [facility] Address [address] [address] Phone Care Team Providers Care Fertilizer Applicator Name Role Phone Rosa Sepulveda NP Primary Care Provider [phone] Encounter Details Date Type Department Care Team ([facility] st Contact Info) Description 05/27/2020 Procedure Pass [place] Admitting Dept - Virtual Department [address] [place] [address] Social History Tobacco Use Types Packs/Day Years [...] on filedocumented in this encounter Care Teams Fertilizer Applicator Relationship Specialty Start Date End Date Rosa Sepulveda NP [address] [place] [phone] PCP - General Family Medicine 09/13/19 documented as of this encounter Additional Source Comments The information contained in this document represents components of the legal health record. It is not the complete legal health record.[facility]
--- OUTSIDE RECORDS SUMMARY | 2025-05-21 18:39 | XMS_ITS | Encounter Summary ---
Author Organization [facility] Address [address] [address] Phone Care Team Providers Care Logging Assistant Name Role Phone Rosa Sepulveda NP Primary Care Provider [phone]- [phone] Encounter Details Date Type Department Care Team ([facility] st Contact Info) Description 05/27/2020 Procedure Pass OR Admitting Dept - Virtual Department [address] [place] [address] Social History Tobacco Use Types Packs/Day Years [...] on filedocumented in this encounter Care Teams Logging Assistant Relationship Specialty Start Date End Date Rosa Sepulveda NP [address] [place] [id number] PCP - General Family Medicine 09/13/19 documented as of this encounter Additional Source Comments The information contained in this document represents components of the legal health record. It is not the complete legal health record.[facility]
--- OUTSIDE RECORDS SUMMARY | 2025-05-21 18:43 | XMS_ITS | Clinical Summary ---
Author Organization [facility] Address [address] [place] [id number] Phone Care Team Providers Care Trapper Animal Name Role Phone Rosa Sepulveda NP Primary Care Provider [phone]- [phone] Allergies Active Allergy Reactions Criticality Noted Date Comments Baclofen Hives Medium 06/20/2019 Lidocaine 04/02/2020 Topical,states steward his skin off Frl-Elfzsndzaqq-Onmurrslthr en 09/13/2019 Diclofenac Sodium 02/08/2020 Topical,states steward [...] file Insurance MEDICARE PART A & B [facility] MEDICARE PART A & B [place] & B [facility] MEDICARE PART A & B HEALTH MEDICARE PART A & B HEALTH Care Teams Trapper Animal Relationship Specialty Start Date End Date Rosa Sepulveda NP [address] [place] [id number] PCP - General Family Medicine 09/13/19 Additional Source Comments The information contained in this document represents components of the legal health record. It is not the complete legal health record.[facility]
[2025-05-21 19:24] LABS: Appearance Urine Clear; Glucose Urine UA Negative (Negative); PH 5.5 (5.0-9.0); Specific Gravity - Urine 1.020 (1.005-1.025)
--- NOTE | 2025-05-21 19:24 | PC.NURSE ---
assumed care of pt, provider at bedside. urine sample obtained. Pt respirations even and unlabored. wheelchair at bedside.
--- NOTE | 2025-05-21 19:47 | PC.NURSE ---
pt medicated per OCT. pt would like to have something to eat. will re evaluate nausea in 30 minutes.
--- NOTE | 2025-05-21 20:20 | PC.NURSE ---
pt neisha turkey sandwich and sugar free jerardo sumit, case management bedside.
[2025-05-21 20:28] VITALS: BP 139/107; PULSE 78; RESP 20; TEMP 36.8; O2SAT 96
--- NOTE | 2025-05-21 20:32 | ED_ITS ---
HPI - General Adult General Chief complaint: General Medical Stated complaint: vomiting x1 hr, ?sepsis Time Seen by Provider: 05/21/25 18:26 Source: patient, EMS and old records reviewed Mode of arrival: EMS Limitations: no limitations History of Present Illness ED Provider: BIBIANA AIKEN narrative: 40 yo male with PMH of ETOH use disorder, bipolar, PTSD, UGIB, neuropathy, R BKA, GBS just admitted here 04/27 to 04/30 for infection/cellulitis - but left AMA. He returns today with c/o impending homelessness on 05/25, chronic sacral wounds, leg pain, intermittent vomiting with coffee ground emesis since February with recent EGD showing duodenitis, esophageal ulcer - he denies NSAIDs and reports compliance with his carafate. He initially stated he needed help and wanted STR but then declined to case management/placement MD complaint: impending homelessness, n/v, intermittent coffee ground emesis since February Location: abdomen, buttocks, left and lower extremity Radiation: non-radiation Severity: moderate Quality: aching Pain Consistency: constant Relieving factors: none Exacerbating factors: movement Associated symptoms: nausea/vomiting Treatments prior to arrival: none Related Data Home Medications ?Medication ?Instructions ?Recorded ?Confirmed hydroxyzine HCl 50 mg tablet 50 mg PO TID 04/14/2501/14 omeprazole 40 mg capsule,delayed 40 mg PO BID@0630,163 0 04/14/25 04/27/25 release pregabalin 225 mg capsule 225 mg PO BID 04/14/2504/27 quetiapine 300 mg tablet 300 mg PO BEDTIME 04/14/25 0 04/27/25 sertraline 100 mg tablet 150 mg PO DAILY 04/14/2501/14 daptomycin 500 mg intravenous 500 mg IV DAILY 04/27/25 04/27/25 solution Previous Rx's ?Medication ?Instructions ?Recorded loperamide 2 mg capsule 2 mg PO Q6H PRN diarrhea #30 caps 04/18/25 (Anti-Diarrheal (loperamide)) bisacodyl 5 mg tablet,delayed 20 mg (4 x 5 mg) PO ONCE 05/01/25 release (Dulcolax (bisacodyl)) colonoscopy prep 1 day #4 tabs polyethylene glycol 3350 17 238 g PO ONCE colonoscopy prep 1 05/01/25 gram/dose oral powder (Miralax) day #238 grams ondansetron 4 mg disintegrating 4 mg PO Q8H PRN nausea and 05/21/25 tablet vomiting #20 tabs Allergies Allergy/AdvReac Type Severity Reaction Status Date / Time baclofen Allergy Hives Verified 05/21/25 17:10 escitalopram (From Lexapro) Allergy Vomiting Verified 05/21/25 17:10 lithium Allergy Unresponsiv Verified 05/21/25 17:10 e metformin Allergy Unknown Verified 05/21/25 17:10 morphine Allergy Hives Verified 05/21/25 17:10 sulfamethoxazole (From Allergy Hives Verified 05/21/25 17:10 Bactrim) tramadol Allergy Hives Verified 05/21/25 17:10 trimethoprim (From Bactrim) Allergy Hives Verified 05/21/25 17:10 Review of Systems 2 Review of Systems: Constitutional : No Fever, No Chills ENT/Mouth : No sore throat, No Rhinorrhea Eyes: No Eye Pain, No Swelling, No Redness Cardiovascular : No Chest Pain, No SOB Respiratory : No Cough, No Sputum Gastrointestinal : pos Nausea, pos Vomiting, No Diarrhea, No abdominal Pain Genitourinary : No Dysuria, No Hematuria Musculoskeletal : pos joint pain, No Myalgias, No Joint Swelling Skin : No Skin Lesions, positive skin rash Neuro : No Weakness, No Numbness, No Headache All other systems reviewed and are negative [facility] Past Medical History Attestation statement: The following information was validated with the patient. Source: old records reviewed Medical History Sacral decubitus ulcer Osteomyelitis of foot Decubitus ulcer Amputation of one or more toes Aftercare following right hip joint replacement surgery Bipolar disorder PTSD (post-traumatic stress disorder) Sacral decubitus ulcer Peripheral neuropathy Non-insulin dependent type 2 diabetes mellitus Guillain-[place] Surgical History History of esophagogastroduodenoscopy (EGD) Hx of laminectomy History of total hip replacement Hx of right BKA Social History Social History Household Members: None Housing: House Are you a primary tree care foreman to a significant other at home: No Do you presently have visiting nurse or other home services: Yes (SIGN HANGER daily) Alcohol intake: current Alcohol intake frequency: former alcohol drinker Alcohol type: hard liquor Comment: stand pivot to luz marina avila Patient Tobacco Use Status: Current everyday Tobacco user Tobacco use type: Cigarette Cigarette Packs Per Day: 1.5 Cigarettes Per Day: 30.0 Years Smoked: 29 Smoked in Last 30 Days: Yes e-Cigarette/Vaping Use: Never Used Second Hand Smoke Exposure: No Use of substances other than those prescribed or required for medical reasons: No Substance Use Type: Crack/Cocaine Substance Use Frequency Other:: 3 weeks ago Advance Directives: No Advance Directives Information Provided: No service: No Physical Exam ED Vital Signs: Vital Signs - 24 hr 05/21/25 17:04 05/21/25 17:06 05/21/25 18:00 Temperature 97.6 F 97.6 F 98.1 F Pulse Rate 88 96 90 Respiratory Rate 16 18 16 Blood Pressure 145/94 H 145/94 H 148/103 H Pulse Oximetry 97 98 98 Oxygen Delivery Method Room Air Room Air Room Air BMI result Body Mass Index 34.0 Appearance: Alert. Oriented X3. No acute distress. Eyes: Pupils equal, round and reactive to light. ENT: Pharynx normal. Neck: Normal inspection. Neck supple. CVS: Normal heart rate and rhythm. Pulses normal. Respiratory: No respiratory distress. Breath sounds normal. Abdomen: Soft and nontender. moves around bed no issues Back: healing sacral wounds but no odor, drainage, no cellulitis Skin: Skin warm and dry. Normal skin color. Normal skin turgor. Extremities: No lower extremity edema. chronic L skin changes no new erythema or warmth Neuro: Oriented X 3. No motor deficit. No sensory deficit. Medications Administered Discontinued Medications Generic Name Dose Route Start Last Admin Trade Name Freq PRN Reason Stop Dose Admin Hydromorphone HCl 2 mg 05/21/25 19:36 05/21/25 19:42 Hydromorphone Hcl 2 Mg/Ml Vial IM 05/21/25 19:37 2 mg ONCE ONE Administration Protocol Ondansetron HCl 4 mg 05/21/25 19:36 05/21/25 19:42 Ondansetron Hcl 4 Mg/2 Ml Vial IVPUSH 05/21/25 19:37 4 mg ONCE ONE Administration Medical Decision Making Medical Decision Making MDM Narrative: 40 yo male with PMH of ETOH use disorder, bipolar, PTSD, UGIB, neuropathy, R BKA, GBS just admitted for possible osteo vs cellulitis he left AMA he returns for chronic pain and wounds on sacrum as well as chronic intermittent coffee ground emesis - at this time will obtain his H/H. He is asking for pain control on arrival. I noted his leg wound is much improved and his sacral wounds are not infected. He has stable H/H and normal BUN. He refuses short term rehab and placement given his poor social situation. Differential Diagnosis Differential Diagnoses: The differential diagnosis associated with the presentation includes chronic pain, chronic reported UGIB, gastritis, known PUD, duodenitis Admission/Observation Consideration of admission/observation: Escalation of care including admission/observation considered BUN stable, H/H stable, no new infections, offered STR for help given his social situation but he refuses stable for DC he did ask for narcotics due to chronic pain but he needs to speak to his PCP for pain control Consult Healthcare Provider Management of the patient was discussed with: Strategic Intelligence Officer case management saw patient he declined. Lab Data [facility] Lab Attestation statement: I reviewed the patient's lab results. h/h stable no BUN not supportive of large UGIB, no wbc count 05/21/25 17:50 05/21/25 17:50 Labs: Lab Results 05/21/25 05/21/25 Range/Units 17:50 19:17 WBC 7.5 (4.8-10.8) X10*3/uL RBC 5.15 (4.60-5.80) X10*6/uL Hgb 13.6 L (14.0-18.0) g/dl Hct 41.2 L (42.0-52.0) % MCV 80.0 (80.0-98.0) fL MCH 26.4 L (27.0-33.0) pg MCHC 33.0 (31.0-36.0) g/dl RDW 14.5 (11.0-16.0) % Plt Count 209 (160-400) X10*3/uL MPV 11.0 (9.4-12.4) fL Immature Gran % (Auto) 0.5 H (0.0-0.4) % Neut % (Auto) 69.9 (45-73) % Lymph % (Auto) 21.3 (20-40) % [place] % (Auto) 6.1 (2-11) % Eos % (Auto) 1.9 (0-4) % Baso % (Auto) 0.3 (0-2) % Lymph # (Auto) 1.6 (1.2-4.9) X10*3/uL [place] # (Auto) 0.5 (0.1-1.2) X10*3/uL Eos # (Auto) 0.1 (0.0-0.4) X10*3/uL Baso # (Auto) 0.0 (0.0-0.2) X10*3/uL Abs Immat Gran (auto) 0.04 H (0.00-0.03) X10*3/uL Absolute Neuts (auto) 5.2 (2.0-8.3) x10*3/uL Absolute Nucleated RBC 0.000 (0.0-0.012) X10*3/uL Nucleated RBC % (auto) 0.0 (0.0-0.2) /100WBC PT 12.9 H (10.9-12.4) SEC INR 1.1 (0.9-1.1) Sodium 144 (135-145) mmol/L Potassium 4.4 (3.3-5.1) mmol/L Chloride 112 H (96-108) mmol/L Carbon Dioxide 22 (22-29) mmol/L Anion Gap 14 (12-20) BUN 13 (9-16) mg/dL Creatinine 0.66 (0.5-1.4) mg/dL Estim Creat Clear Calc 195.2 Estimated GFR > 60 Random Glucose 102 (60-115) mg/dL Calcium 9.7 D (8.4-10.2) mg/dL Magnesium 1.9 (1.6-2.6) mg/dL Total Bilirubin 0.4 (0.0-1.0) mg/dL AST 51 H (5-37) U/L ALT 49 H (0-40) U/L Alkaline Phosphatase 86 (39-117) U/L Total Protein 7.8 (6.5-8.0) g/dL Albumin 4.8 (3.5-5.0) g/dL Urine Color Yellow Urine Appearance Clear Urine pH 5.5 (5.0-9.0) Ur Specific Lynn 1.020 (1.005-1.025) Urine Protein Negative (Neg-Trace) mg/dL Urine Glucose (UA) Negative (Negative) mg/dL Urine Ketones Negative (Negative) mg/dL Urine Blood Negative (Negative) Urine Nitrite Negative (Negative) Ur Leukocyte Esterase Negative (Negative) Independent Historian Clinical information obtained from an independent historian. History obtained from or confirmed by: EMS External Record Review External record reviewed: Outpatient record Prescription Management I considered prescription management with: Pain Medication and Other Discharge Plan Discharge Clinical Impression: Wound of sacral region, Chronic leg pain Patient Disposition: Home, Self-Care Instructions: Chronic Pain (ED), Wound Healing and Your Diet (ED) Additional Instructions: your labs are reassuring you are not anemic your hemoglobin is 13.6 which is the highest you have been in a long time you need to follow up with your GI doctor and your primary care doctor continue all of your medications. Prescriptions: New ondansetron 4 mg tablet,disintegrating 4 mg PO Q8H PRN (Reason: nausea and vomiting) Qty: 20 0RF No Action bisacodyl [Dulcolax (bisacodyl)] 5 mg tablet,delayed release (DR/EC) 20 mg PO ONCE 1 Days Qty: 4 0RF Rx Instructions: the day before colonoscopy take 2 pills at 12pm and 2 pills at 5pm with plenty of water polyethylene glycol 3350 [Miralax] 17 gram/dose powder 238 g PO ONCE 1 Days Qty: 238 0RF Rx Instructions: THE DAY BEFORE your procedure mix entire bottle with 64 ounces of Gatorade- no red, blue or purple. AT 5PM Start drinking 1 cup every 15minutes until half is gone. Continue drinking plenty of clear liquids. AT 10PM Finish drinking remaining prep. quetiapine 300 mg tablet 300 mg PO BEDTIME sertraline 100 mg tablet 150 mg PO DAILY hydroxyzine HCl 50 mg tablet 50 mg PO TID omeprazole 40 mg capsule,delayed release(DR/EC) 40 mg PO BID@0630,1630 pregabalin 225 mg capsule 225 mg PO BID loperamide [Anti-Diarrheal (loperamide)] 2 mg capsule 2 mg PO Q6H PRN (Reason: diarrhea) Qty: 30 0RF daptomycin 500 mg recon soln 500 mg IV DAILY Print Language: Tamazight
[2025-05-21 21:03] VITALS: BP 139/107; PULSE 78; RESP 20; TEMP 36.8; O2SAT 96
--- NOTE | 2025-05-21 21:16 | MHC.CM.ED ---
CM met with patient. Pt was at [facility] 04/27-04/30 with celluilits. Pt left AMA. Pt was treated for osteomyelitis of L foot. Pt has a R BKA 06/15. Pt does not have a PCP, but tells CM he has an appointment of Oct 01 with a new doctor, does not remember the name. Pt has been evicted from his home and his last day is 05/25. Pt plans to then live at the [place] [address] in [place] and then move in with his RESERVE OFFICER, Kenton Knutson ([phone]). Pt has 50 .5 hours of RESERVE OFFICER weekly. Pt is independent and pivots and self transfers from his W/C. Pt has a therapis at [facility]. Pt has refused PT evaluation and STR. Requests discharge to home. Pt has a small sacral decubiti. No open wounds on remaining foot. Pt cannot have VNA until he has a PCP. Pt is aware. LYNERY obtained for patient.
== END 2025-05-21 21:04 | disposition home or self-care (01) ==
PROVIDERS: Physician Assistant Medical; Emergency Provider Emergency Medicine
DX: L89.159 Pressure ulcer of sacral region, unspecified stage (principal); R11.2 Nausea with vomiting, unspecified; F17.210 Nicotine dependence, cigarettes, uncomplicated; M79.605 Pain in left leg; Z79.899 Other long term (current) drug therapy
CPT/HCPCS: 36415; 80053; 81003; 83735; 85025; 85610; 96372; 96374; 99284; J1171; J2405

== ENCOUNTER 2025-06-02 18:58 | Emergency (ER) | payer MEDICARE, MEDICAID, SELFPAY ==
--- OUTSIDE RECORDS SUMMARY | 2025-06-01 06:36 | XMS_ITS | Encounter Summary ---
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 200-200-20 mg/5 mL oral suspension 30 mL 30 mL Oral Given Pat Campo RN -- SONYA Critical Care: Total Critical Care Time (minutes) 35 is exclusive of otherwise billable procedures. Services: GAS ANALYST Indications: The patient had severely altered mental status, with concern for acute GAS ANALYST pathology with the potential for life-threatening progression or permanent disability. Interventions: Patient received continual bedside re-assessment of any signs or symptoms of GAS ANALYST deterioration, including altered mental status or stupor, or any new neurologic deficits, or an indication to therapeutically intervene to improve cerebral perfusion. To identify life-threatening pathology, the patient underwent prompt computed tomography imaging. Course: The patient???s symptoms improved with time. 40-year-old male presents unresponsive, initial trauma/tox/metabolic workup showed an alcohol levelof 419 which was consistent with his level of responsiveness. He was monitored over time and had improvement. Once he was able to be conversant he complained of chest pain that has been present over many days. My suspicion is that this is an esophagitis/gastritis due to his alcohol use. I have given him Maalox. I have broaden his workup to include a lipase and troponins. His initial EKG was interpreted by me as normal sinus rhythm with a rate of [address] or T or T wave abnormalities concerning for acute ischemia. There is no old for comparison. His chest x-ray which was initially done asa screening test for hypoxia showed wide mediastinum but no lung pathology. He was weaned off oxygen which I thought was initially low related to his body habitus and his level of alcohol. I doubt aortic pathology but will repeat a PA x-ray and see if it is positional as recommended by radiology. If it still remains wide he will get a CT to evaluate the aorta. If workup is unremarkable I anticipate that he can be discharged Clinical Impressions as of 06/01/25 1432 Alcohol abuse Chest pain, unspecified type Critical Care Time: 35 minutes Clinical Impression Diagnosis Description Comment Final diagnoses Alcohol abuse Alcohol abuse -- Chest pain, unspecified type Chest pain, unspecified type -- Disposition: Signed out to Jaiden Calabrese MD 06/01/25 1432 documented in this encounter Plan of Treatment Scheduled Orders Name Type Priority Associated Diagnoses Orde r Schedule Lab Add On: lipase Lab STAT Once f or 1 Occurrences starting 06/01/2025 until 06/01/2025 documented as of this encounter Procedures Procedure Name Priority Date/Time Associated Diagnosis Comments XR FOOT 3 OR MORE VIEWS (LEFT) Routine 06/02/2025 6:59 AM EDT POCT GLUCOSE STAT 06/02/2025 4:11 AM EDT TROPONIN STAT 06/01/2025 2:30 PM EDT XR CHEST 1 VIEW Routine 06/01/2025 2:[address] CERVICAL SPINE WITHOUT CONTRAST Routine 06/01/2025 8:[address] HEAD WITHOUT CONTRAST Routine 06/01/2025 8:08 AM EDT XR CHEST PORTABLE Routine 06/01/2025 7:1 4 AM EDT POCT GLUCOSE Routine 06/01/2025 6:49 AM EDT ECG 12-LEAD STAT 06/01/2025 6:48 AM EDT ETHANOL, BLOOD STAT 06/01/2025 6:42 AM EDT LFTS (HEPATIC PANEL) STAT 06/01/2025 6:42 AM EDT PT-INR STAT 06/01/2025 6:42 AM EDT CBC AND DIFFERENTIAL STAT 06/01/2025 6:42 AM EDT TROPONIN Routine 06/01/2025 6:42 AM EDT MAGNESIUM STAT 06/01/2025 6:42 AM EDT LIPASE Routine 06/01/2025 6:42 AM EDT VENOUS BLOOD GAS STAT 06/01/2025 6:42 AM EDT ACETAMINOPHEN LEVEL STAT 06/01/2025 6 :42 AM EDT SALICYLATES STAT 06/01/2025 6:42 AM EDT BASIC METABOLIC PANEL STAT 06/01/2025 6:42 AM EDT documented in this encounter Results * XR FOOT 3 OR MORE VIEWS (LEFT) (06/02/2025 6:59 AM EDT) MGB IMG SOAP SLABBER COMMENT Erosive changes involving the third digit proximal phalanx with widening of the joint may represent septic arthritis. Further imaging with MRI recommended. [facility] Anatomical Region Laterality Modality Foot Left Computed Radiogr aphy 06/02/2025 7:20 AM EDT Impressions 06/02/2025 7:47 AM EDT Erosive changes involving the third digit proximal phalanx with widening of the joint may represent septic arthritis. Further imaging with MRI recommended. A clinically significant result was initiated on 06/02/2025 7:47 AM, Message ID [id number]. ATTESTATION: IAbimbola as teaching physician, have reviewed the images for this case and if necessary edited the report originally created by Gina Parkinson. Narrative 06/02/2025 7:47 AM EDT XR FOOT 3 OR MORE VIEWS (LEFT) Referring clinician's provided indication for this examination in Epic: Pain; Trauma COMPARISON: None FINDINGS: Osseous destruction of the third digit proximal phalanx with widening of the interphalangeal joint. 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 Chronic deformity of the distal fifth metatarsal with mild medial subluxation of the fifth proximal phalanx. No fracture. Scattered degenerative changes. Heterotopic ossification in the region of the distal Achilles tendon. Old fracture deformity of the fifth metatarsal base.. Procedure Note Abimbola Anderson MD, SAM - 06/02/2025 XR FOOT 3 OR MORE VIEWS (LEFT) Referring clinician's provided indication for this examination in Epic:Pain; Trauma COMPARISON: None FINDINGS: Osseous destruction of the third digit proximal phalanx with widening ofthe interphalangeal joint. Status post amputation at the distal first andsecond proximal phalanges. Chronic deformity of the distal fifthmetatarsal with mild medial subluxation of the fifth proximal phalanx. Nofracture. Scattered degenerative changes. Heterotopic ossification in theregion of the distal Achilles tendon. Old fracture deformity of the fifthmetatarsal base.. IMPRESSION: Erosive changes involving the third digit proximal phalanx with wideningof the joint may represent septic arthritis. Further imaging with MRIrecommended. A clinically significant result was initiated on 06/02/2025 7:47 AM,Message ID [id number]. ATTESTATION: IAbimbola as teaching physician, have reviewed theimages for this case and if necessary edited the report originally createdby Gina Parkinson. us Jaiden Govea MD IMG XR LOWER EXTREMITY Final Res ult * POCT Glucose (06/02/2025 4:11 AM EDT) 06/02/2025 4:11 AM EDT us Jaiden Govea MD POINT OF CARE TEST ORDERABLES Fi nal Result * Troponin (06/01/2025 2:30 PM EDT) Troponin-T, HS Gen5 14 0 - 14 ng/L [facility] Blood 06/01/2025 2:30 PM EDT 06/01/2025 2:37 PM EDT us Jaiden Govea MD LAB BLOOD ORDERABLES Final Resul t [facility] [address] [place] [address] * XR CHEST 1 VIEW (06/01/2025 2:25 PM EDT) Anatomical Region Laterality Modality Chest Computed Radiogr aphy 06/01/2025 3:47 PM EDT Impressions 06/01/2025 4:35 PM EDT No acute abnormality. ATTESTATION: IBonnie as teaching physician, have reviewed the images for this case and if necessary edited the report originally created by Deborah Carver MD. Narrative 06/01/2025 4:35 PM EDT XR CHEST 1 VIEW Referring clinician's provided indication for this examination in Epic: Pain; Wide mediastinum on AP, COMPARISON: XR CHEST PORTABLE 07:09:40.000 FINDINGS: Devices/Tubes/Lines: None. Lungs: Low lung volumes with bronchovascular crowding. No focal consolidation. Pleura: No pleural effusion or pneumothorax. Heart/Mediastinum: Normal heart size. Bones/Soft Tissues: No significant abnormality. Procedure Note Bonnie Carlton MBBS - 06/01/2025 XR CHEST 1 VIEW Referring clinician's provided indication for this examination in Epic:Pain; Wide mediastinum on AP, COMPARISON: XR CHEST PORTABLE 07:09:40.000 FINDINGS: Devices/Tubes/Lines: None. Lungs: Low lung volumes with bronchovascular crowding. No focalconsolidation. Pleura: No pleural effusion or pneumothorax. Heart/Mediastinum: Normal heart size. Bones/Soft Tissues: No significant abnormality. IMPRESSION: No acute abnormality. ATTESTATION: I, Bonnie Carlton as teaching physician, have reviewedthe images for this case and if necessary edited the report originallycreated by Deborah Carver MD. Jaiden Govea MD IMG XR CHEST Final Result * CT CERVICAL SPINE WITHOUT CONTRAST (06/01/2025 8:08 AM EDT) Anatomical Region Laterality Modality C-spine Computed Tomogra phy 06/01/2025 8:54 AM EDT Impressions 06/01/2025 9:03 AM EDT 1. No acute intracranial findings. 2. No acute fracture or traumatic malalignment of the cervical spine. Narrative 06/01/2025 9:[address] HEAD WITHOUT CONTRAST, CT CERVICAL SPINE WITHOUT CONTRAST Referring clinician's provided indication for this examination in Psychiatric: * Mental status change, unknown cause TECHNIQUE: CTs of the head and cervical spine were performed without intravenous contrast using tailored dose modulation techniques. Images were reconstructed in the axial, coronal, and sagittal planes. COMPARISON: None available. FINDINGS: Please note that these studies are mildly limited due to motion artifact. Within this limitation: HEAD: Brain Parenchyma: No midline shift, mass effect, parenchymal hemorrhage, or evidence of acute territorial infarct. Ventricular System and Extra-Axial Spaces: No extra-axial fluid collections. Basal cisterns are patent. No hydrocephalus. Osseous and Extracranial Structures: No calvarial fracture or significant soft tissue hematoma. The paranasal sinuses and mastoid air cells are clear. No orbital abnormality. CERVICAL SPINE: Alignment and Vertebrae: No traumatic malalignment. Vertebral bodies and posterior elements are intact. Discs and Endplates: No disc height loss or endplate irregularities. Other Findings: The visualized aerodigestive tract is unremarkable. There is no suspicious lymphadenopathy in the neck. The thyroid is unremarkable. The visualized lung apices are clear. Procedure Note Freda Menard MD - 06/01/2025 CT HEAD WITHOUT CONTRAST, CT CERVICAL SPINE WITHOUT CONTRAST Referring clinician's provided indication for this examination in Psychiatric: *Mental status change, unknown cause TECHNIQUE: CTs of the head and cervical spine were performed withoutintravenous contrast using tailored dose modulation techniques. Imageswere reconstructed in the axial, coronal, and sagittal planes. COMPARISON: None available. FINDINGS: Please note that these studies are mildly limited due to motion artifact.Within this limitation: HEAD: Brain Parenchyma: No midline shift, mass effect, parenchymal hemorrhage,or evidence of acute territorial infarct. Ventricular System and Extra-Axial Spaces: No extra-axial fluidcollections. Basal cisterns are patent. No hydrocephalus. Osseous and Extracranial Structures: No calvarial fracture or significantsoft tissue hematoma. The paranasal sinuses and mastoid air cells areclear. No orbital abnormality. CERVICAL SPINE: Alignment and Vertebrae: No traumatic malalignment. Vertebral bodies andposterior elements are intact. Discs and Endplates: No disc height loss or endplate irregularities. Other Findings: The visualized aerodigestive tract is unremarkable. Thereis no suspicious lymphadenopathy in the neck. The thyroid is unremarkable.The visualized lung apices are clear. IMPRESSION: 1. No acute intracranial findings. 2. No acute fracture or traumatic malalignment of the cervical spine. Jaiden Govea MD IMG CT XSPECIALTY ORDERABLES Fin al Result * CT HEAD WITHOUT CONTRAST (06/01/2025 8:08 AM EDT) Anatomical Region Laterality Modality Head Computed Tomogra phy 06/01/2025 8:54 AM EDT Impressions 06/01/2025 9:03 AM EDT 1. No acute intracranial findings. 2. No acute fracture or traumatic malalignment of the cervical spine. Narrative 06/01/2025 9:[address] HEAD WITHOUT CONTRAST, CT CERVICAL SPINE WITHOUT CONTRAST Referring clinician's provided indication for this examination in Psychiatric: * Mental status change, unknown cause TECHNIQUE: CTs of the head and cervical spine were performed without intravenous contrast using tailored dose modulation techniques. Images were reconstructed in the axial, coronal, and sagittal planes. COMPARISON: None available. FINDINGS: Please note that these studies are mildly limited due to motion artifact. Within this limitation: HEAD: Brain Parenchyma: No midline shift, mass effect, parenchymal hemorrhage, or evidence of acute territorial infarct. Ventricular System and Extra-Axial Spaces: No extra-axial fluid collections. Basal cisterns are patent. No hydrocephalus. Osseous and Extracranial Structures: No calvarial fracture or significant soft tissue hematoma. The paranasal sinuses and mastoid air cells are clear. No orbital abnormality. CERVICAL SPINE: Alignment and Vertebrae: No traumatic malalignment. Vertebral bodies and posterior elements are intact. Discs and Endplates: No disc height loss or endplate irregularities. Other Findings: The visualized aerodigestive tract is unremarkable. There is no suspicious lymphadenopathy in the neck. The thyroid is unremarkable. The visualized lung apices are clear. Procedure Note Freda Menard MD - 06/01/2025 CT HEAD WITHOUT CONTRAST, CT CERVICAL SPINE WITHOUT CONTRAST Referring clinician's provided indication for this examination in Epic: *Mental status change, unknown cause TECHNIQUE: CTs of the head and cervical spine were performed withoutintravenous contrast using tailored dose modulation techniques. Imageswere reconstructed in the axial, coronal, and sagittal planes. COMPARISON: None available. FINDINGS: Please note that these studies are mildly limited due to motion artifact.Within this limitation: HEAD: Brain Parenchyma: No midline shift, mass effect, parenchymal hemorrhage,or evidence of acute territorial infarct. Ventricular System and Extra-Axial Spaces: No extra-axial fluidcollections. Basal cisterns are patent. No hydrocephalus. Osseous and Extracranial Structures: No calvarial fracture or significantsoft tissue hematoma. The paranasal sinuses and mastoid air cells areclear. No orbital abnormality. CERVICAL SPINE: Alignment and Vertebrae: No traumatic malalignment. Vertebral bodies andposterior elements are intact. Discs and Endplates: No disc height loss or endplate irregularities. Other Findings: The visualized aerodigestive tract is unremarkable. Thereis no suspicious lymphadenopathy in the neck. The thyroid is unremarkable.The visualized lung apices are clear. IMPRESSION: 1. No acute intracranial findings. 2. No acute fracture or traumatic malalignment of the cervical spine. Jaiden Govea MD IMG CT HEAD/NECK Final Result * XR Chest Portable (06/01/2025 7:14 AM EDT) Anatomical Region Laterality Modality Chest Computed Radiogr aphy 06/01/2025 9:12 AM EDT Impressions 06/01/2025 9:13 AM EDT Widening of the cardiomediastinal silhouette may be secondary to the AP supine technique. Would recommend repeat PA and lateral views of the chest when clinically able or CT scan if clinically indicated. Narrative 06/01/2025 9:13 AM EDT XR CHEST PORTABLE Referring clinician's provided indication for this examination in Epic: Respiratory failure COMPARISON: None FINDINGS: Devices/Tubes/Lines: None. Lungs: There are low lung volumes with mild prominence of interstitium likely related to technique. No definite consolidation. Pleura: No pleural effusion or pneumothorax. Heart/Mediastinum: Widening of the cardiomediastinal silhouette Bones/Soft Tissues: No significant abnormality. Procedure Note Pratima Garcia MD - 06/01/2025 XR CHEST PORTABLE Referring clinician's provided indication for this examination in Epic:Respiratory failure COMPARISON: None FINDINGS: Devices/Tubes/Lines: None. Lungs: There are low lung volumes with mild prominence of interstitiumlikely related to technique. No definite consolidation. Pleura: No pleural effusion or pneumothorax. Heart/Mediastinum: Widening of the cardiomediastinal silhouette Bones/Soft Tissues: No significant abnormality. IMPRESSION: Widening of the cardiomediastinal silhouette may be secondary to the APsupine technique. Would recommend repeat PA and lateral views of the chestwhen clinically able or CT scan if clinically indicated. Jaiden Govea MD IMG XR CHEST Final Result * (ABNORMAL) POCT Glucose (06/01/2025 6:49 AM EDT) Glucose, POCT 171(H) 70 - 100 mg/dL [facility] 06/01/2025 6:49 AM EDT 06/01/2025 6:54 AM EDT Jaiden Govea MD POINT OF CARE TEST ORDERABLES Fi nal Result Performing Organization Address City/State/[facility] Co de Phone Number [address] [address] * ECG 12-LEAD (06/01/2025 6:48 AM EDT) Ventricular Rate EKG/MIN 98 BPM [facility] Atrial Rate 98 BPM [facility] RI Interval 158 ms [facility] QRS Duration 84 ms [facility] QT Interval 348 ms [facility] QTC Interval 444 ms [facility] P [place] 52 degrees [facility] R Wave [place] -14 degrees [facility] T Wave [place] 37 degrees [facility] 06/01/2025 6:48 AM EDT 06/01/2025 11:49 AM EDT Narrative [facility] - 06/01/2025 11:49 AM EDT Normal sinus rhythm Cannot rule out Anterior infarct , age undetermined Abnormal ECG No previous ECGs available Confirmed by Moises MARQUEZ ([id number]) on 06/01/2025 11:49:35 AM us Jaiden Govea MD ECG ORDERABLES Final Result Performing Organization Address [facility] de Phone Number [email or web address] * Troponin (06/01/2025 6:42 AM EDT) Troponin-T, HS Gen5 12 0 - 14 ng/L [facility] 06/01/2025 6:42 AM EDT 06/01/2025 7:00 AM EDT us Jaiden Govea MD LAB BLOOD ORDERABLES Final Resul t Performing Organization Address [facility] Phone Number [address] [phone] * Lipase (06/01/2025 6:42 AM EDT) LIPASE 58 16 - 63 U/L [facility] 06/01/2025 6:42 AM EDT 06/01/2025 7:00 AM EDT us Jaiden Govea MD LAB BLOOD ORDERABLES Final Resul t Performing Organization Address [facility] Phone Number [address] [address] * (ABNORMAL) Salicylates (06/01/2025 6:42 AM EDT) SALICYLATES <0.3(L) 2.8 - 19.9 mg/dL [facility] Blood 06/01/2025 6:42 AM EDT 06/01/2025 7:00 AM EDT us Jaiden Govea MD LAB BLOOD ORDERABLES Final Resul t Performing Organization Address [facility]/State/ZIP Co de Phone Number [address] [address] * (ABNORMAL) Acetaminophen level (06/01/2025 6:42 AM EDT) ACETAMINOPHEN <5.0(L) 15.0 - 30.0 ug/mL [facility] Blood 06/01/2025 6:42 AM EDT 06/01/2025 7:00 AM EDT us Jaiden Govea MD LAB BLOOD ORDERABLES Final Resul t Performing Organization Address [facility] Co de Phone Number [address] [address] * (ABNORMAL) Ethanol, blood (06/01/2025 6:42 AM EDT) ETHANOL 419(H) <10 mg/dL [facility] Blood 06/01/2025 6:42 AM EDT 06/01/2025 7:00 AM EDT us Jaiden Govea MD LAB BLOOD ORDERABLES Final Resul t Performing Organization Address [facility] de Phone Number [address] [address] * (ABNORMAL) Venous blood gas (06/01/2025 6:42 AM EDT) pH, Venous 7.25(L) 7.31 - 7.41 [facility] PCO2, Venous 38.80(L) 41.00 - 51.00 mmHg [facility] PO2, Venous 111.40(H) 35.00 - 40.00 mmHg [facility] HCO3, Venous 17(L) 23 - 28 mmol/L [facility] BASE DEFICIT VENOUS 9.7(H) 0.0 - 2.0 mmol/L [facility] SO2, VENOUS 97.10(H) 60.00 - 80.00 % [facility] FO2HB, VENOUS 94.00(H) 71.00 - 74.00 % [facility] Carboxy Hgb 3.10(H) 0 - 1.50 % [facility] MetHgb % 0.10 0 - 1.50 % [facility] Blood 06/01/2025 6:42 AM EDT 06/01/2025 6:59 AM EDT us Jaiden Govea MD LAB BLOOD ORDERABLES Final Resul t Performing Organization Address [facility] Co de Phone Number [address] [address] * (ABNORMAL) PT-INR (06/01/2025 6:42 AM EDT) PT 14.0(H) 10.2 - 12.9 sec [facility] INR 1.1 0.9 - 1.1 [facility] Comment:Therapeutic range fo r oral Vitamin K antagonists: 2.0-3.5 Blood 06/01/2025 6:42 AM EDT 06/01/2025 7:00 AM EDT us Jaiden Govea MD LAB BLOOD ORDERABLES Final Resul t Performing Organization Address [facility] de Phone Number [address] [address] * Magnesium (06/01/2025 6:42 AM EDT) MAGNESIUM 2.1 1.6 - 2.6 mg/dL [facility] Blood 06/01/2025 6:42 AM EDT 06/01/2025 7:00 AM EDT us Jaiden Govea MD LAB BLOOD ORDERABLES Final Resul t Performing Organization Address [facility] Co de Phone Number [address] [address] * (ABNORMAL) LFTs (hepatic panel) (06/01/2025 6:42 AM EDT) ALKALINE PHOSPHATASE 120(H) 39 - 117 U/L [facility] TOTAL BILIRUBIN 0.5 0.0 - 1.2 mg/dL [facility] DIRECT BILIRUBIN 0.1 0.0 - 0.2 mg/dL [facility] Bilirubin (Indirect) NOT CALCULATED 0 - 1.5 mg/dL [facility] AST 45(H) 0 - 37 U/L [facility] ALT 38 0 - 40 U/L [facility] TOTAL PROTEIN 8.1(H) 6.5 - 8.0 g/dL [facility] ALBUMIN 4.8 3.9 - 4.8 g/dL [facility] GLOBULIN 3.3 1 - 4.8 g/dL [facility] A/G Ratio 1.45 1.00 - 4.80 RATIO [facility] Blood 06/01/2025 6:42 AM EDT 06/01/2025 7:00 AM EDT us Jaiden Govea MD LAB BLOOD ORDERABLES Final Resul t Performing Organization Address City/State/[facility] Co de Phone Number [address] [address] * (ABNORMAL) Basic metabolic panel (06/01/2025 6:42 AM EDT) SODIUM 140 133 - 146 mmol/L [facility] CHLORIDE 102 96 - 108 mmol/L [facility] POTASSIUM 3.4 3.3 - 5.1 mmol/L [facility] CO2 18(L) 21 - 35 mmol/L [facility] BUN 13 6 - 19 mg/dL [facility] CREATININE 0.60 0.5 - 1.5 mg/dL [facility] GLUCOSE 177(H) 70 - 99 mg/dL [facility] CALCIUM 9.3 8.4 - 10.3 mg/dL [facility] EGFR >120 >59 mL/min/1.7 3m2 [facility] Comment:Estimated glomerular filtration rate calculated using the CKD-EPI refit equation. ANION GAP 23(H) 10 - 20 mmol/L [facility] Blood 06/01/2025 6:42 AM EDT 06/01/2025 7:00 AM EDT us Jaiden Govea MD LAB BLOOD ORDERABLES Final Resul t [facility] [address] [place] [address] * (ABNORMAL) CBC and differential (06/01/2025 6:42 AM EDT) WBC 12.83(H) 4.00 - 11.00 K/uL [facility] RBC 5.96(H) 4.50 - 5.90 M/uL [facility] HGB 15.2 13.5 - 17.5 g/dL [facility] HCT 48.0 41.0 - 53.0 % [facility] PLT 325 150 - 450 K/uL [facility] MCV 80.5 80.0 - 100.0 fL [facility] MCH 25.5(L) 27.0 - 31.0 pg [facility] MCHC 31.7(L) 32.0 - 36.0 g/dL [facility] RDW 15.0(H) 11.5 - 14.5 % [facility] MPV 10.7 8.4 - 12.0 fL [facility] NRBC 0.00 0.00 /100 WBCs [facility] ABSOLUTE NRBC 0.00 0.00 K/uL [facility] DIFF METHOD Manual [facility] TOTAL CELLS COUNTED 100 [facility] NEUTS 56.0 48.0 - 76.0 % [facility] BANDS 3.0 0 - 10 % [facility] LYMPHS 33.0 18.0 - 41.0 % [facility] Comment:Few atypical Lymphs seen. MONOS 3.0(L) 4.0 - 11.0 % [facility] EOS 1.0 0.0 - 5.0 % [facility] BASOS 2.0(H) 0.0 - 1.5 % [facility] MYELOS 1.0(H) 0 % [facility] METAS 1.0(H) 0 % [facility] ABSOLUTE NEUTS 7.57 1.92 - 7.60 K/uL [facility] ABSOLUTE LYMPHS 4.23(H) 0.72 - 4.10 K/uL [facility] ABSOLUTE MONOS 0.38 0.16 - 1.10 K/uL [facility] ABSOLUTE EOS 0.13 0.00 - 0.50 K/uL [facility] ABSOLUTE BASOS 0.26(H) 0.00 - 0.15 K/uL [facility] ABSOLUTE MYELOS 0.13 K/uL [facility] ABSOLUTE METAS 0.13 K/uL [facility] Blood 06/01/2025 6:42 AM EDT 06/01/2025 7:00 AM EDT us Jaiden Govea MD LAB BLOOD ORDERABLES Final Resul t [facility] [address] [place] [address] documented in this encounter Visit Diagnoses Diagnosis Depression- Primary Depressive disorder, not elsewhere classified Alcohol abuse Nondependent alcohol abuse, unspecified drinking behavior Chest pain, unspecified type Depression Depressive disorder, not elsewhere classified documented in this encounter Admitting Diagnoses Diagnosis Depression Depressive disorder, not elsewhere classified documented in this encounter Administered Medications Inactive Administered Medications - up to 3 most recent administrations Medication Order MAR Action Action Date Dose Rate Site aluminum-magnesium hydroxide-simethicone (MAALOX) 200-200-20 mg/5 mL oral suspension 30 mL 30 mL, Oral, Once, On Wed06/01/25 at 1415, For 1 dose, Shake Well Given 06/01/2025 2:27 PM EDT 30 mL diphenhydrAMINE (BENADRYL) capsule 25 mg 25 mg, Oral, Once, On Wed06/01/25 at 1815, For 1 dose Given 06/01/2025 7:19 PM EDT 25 mg hydrOXYzine (VISTARIL) capsule 25 mg 25 mg, Oral, Once, On Wed06/02/25 at 0145, For 1 dose Given 06/02/2025 1:38 AM EDT 25 mg ibuprofen (ADVIL,MOTRIN) tablet 600 mg 600 mg, Oral, Once, On Wed06/01/25 at 1615, For 1 dose Given 06/01/2025 5:06 PM EDT 600 mg ibuprofen (ADVIL,MOTRIN) tablet 600 mg 600 mg, Oral, Once, On Wed06/01/25 at 2330, For 1 dose Given 06/01/2025 11:28 PM EDT 600 mg lidocaine 4 % 1 patch 1 patch, Transdermal, Administer over 12 Hours, Every 24 hours, First dose on 06/02/25 at 0715, Apply to chest Do not place external heat sources such as heating pads over patches. Patch Applied 06/02/2025 7:17 AM EDT 1 patch Chest morphine (MSIR) tablet 15 mg 15 mg, Oral, Once, On Wed06/02/25 at 0400, For 1 dose Given 06/02/2025 4:07 AM EDT 15 mg morphine (MSIR) tablet 15 mg 15 mg, Oral, Once, On 06/02/25 at 1145, For 1 dose Given 06/02/2025 12:02 PM EDT 15 mg morphine injection syringe 4 mg 4 mg, Intravenous, Once, On Wed06/01/25 at 1815, For 1 dose Given 06/01/2025 7:24 PM EDT 4 mg PHENobarbital (LUMINAL) 754 mg in sodium chloride 0.9% 100 mL IVPB 754 mg (rounded from 753 mg = 10 mg/kg 75.3 kg [place] weight), Intravenous, Administer over 30 Minutes, Once, On 06/02/25 at 0845, For 1 dose, Do NOT exceed infusion rate of 60 mg/min. New Bag 06/02/2025 9:18 AM EDT 754 mg 200 mL/hr documented in this encounter Active and Recently Administered Medications Times are shown in EDT. Scheduled Medication Order 05/31/2025 06/01/2025 06/02/2025 aluminum-magnesium hydroxide-simethicone (MAALOX) 200-200-20 mg/5 mL oral suspension 30 mL (COMPLETED) 30 mL, Oral, Once, On Wed06/01/25 at 1415, For 1 dose, Shake Well 1427 (Given - Provider: Pat Campo RN) diphenhydrAMINE (BENADRYL) capsule 25 mg (COMPLETED) 25 mg, Oral, Once, On Wed06/01/25 at 1815, For 1 dose 1919 (Given - Provider: Paris Escobar RN) hydrOXYzine (VISTARIL) capsule 25 mg (COMPLETED) 25 mg, Oral, Once, On Wed06/02/25 at 0145, For 1 dose 0138 (Given - Provid er: Sherly Carlos RN) ibuprofen (ADVIL,MOTRIN) tablet 600 mg (COMPLETED) 600 mg, Oral, Once, On Wed06/01/25 at 1615, For 1 dose 1706 (Given - Provider: Paris Escobar RN) ibuprofen (ADVIL,MOTRIN) tablet 600 mg (COMPLETED) 600 mg, Oral, Once, On Wed06/01/25 at 2330, For 1 dose 2328 (Given - Provider: Maritza Wang RN) lidocaine 4 % 1 patch 1 patch, Transdermal, Administer over 12 Hours, Every 24 hours, First dose on 06/02/25 at 0715, Apply to chest Do not place external heat sources such as heating pads over patches. 0717 (Patch Applied - Provider: Sherly Carlos RN)1237 (Due: Patch Removed - Provider: Automatic Discharge Provider - Comment: Time automatically adjusted from order being discontinued) morphine (MSIR) tablet 15 mg (COMPLETED) 15 mg, Oral, Once, On 06/02/25 at 0400, For 1 dose 0407 (Given - Provid er: Sherly Carlos RN) morphine (MSIR) tablet 15 mg (COMPLETED) 15 mg, Oral, Once, On 06/02/25 at 1145, For 1 dose 1202 (Given - Provid er: Salvador Parrish RN) morphine injection syringe 4 mg (COMPLETED) 4 mg, Intravenous, Once, On Wed06/01/25 at 1815, For 1 dose 1924 (Given - Provider: Paris Escobar RN) PHENobarbital (LUMINAL) 754 mg in sodium chloride 0.9% 100 mL IVPB (COMPLETED) 754 mg (rounded from 753 mg = 10 mg/kg 75.3 kg [place] weight), Intravenous, Administer over 30 Minutes, Once, On 06/02/25 at 0845, For 1 dose, Do NOT exceed infusion rate of 60 mg/min. 0918 (New Bag - Prov ider: Salvador Parrish RN)1011 (Stopped - Provider: Salvador Parrish RN) documented in this encounter Care Teams Capacity Planning Engineer Relationship Specialty Start Date End Date Rosa Sepulveda NP [address] [place] [address] PCP - General Family Medicine 09/13/19 documented as of this encounter Additional Source Comments The information contained in this document represents components of the legal health record. It is not the complete legal health record.[facility]
--- NOTE | ~2025-06-02 | CT_ITS ---
CLINICAL HISTORY: acute on chronic osteo?? is it acute today EXAM: CT Foot, left, with IV contrast. CLINICAL HISTORY: acute on chronic osteo?? is it acute today TECHNIQUE: Axial computed tomography images of the left foot with intravenous contrast. CONTRAST: with COMPARISON: CR - XR FOOT LT 2V - 04/27/25 19:52 EDT FINDINGS: BONES: Moderate osteopenia. Exuberant heterotopic bone formation posterior superior aspect of the calcaneus. No fracture or dislocation. Prior amputation of the 2nd digit through the proximal phalanx distal metaphysis. JOINTS: Prior amputation of the 1st digit through the distal metaphysis of the proximal phalanx SOFT TISSUES: No radiopaque foreign body is seen. No soft tissue fluid collection. IMPRESSION: 1. Moderate osteopenia. 2. Exuberant heterotopic bone formation posterior superior aspect of the calcaneus. 3. Prior amputation of the 2nd digit through the proximal phalanx distal metaphysis. 4. Prior amputation of the 1st digit through the distal metaphysis of the proximal phalanx 5. No acute osseous injury. This document has been electronically signed by: Johnnie Mejia MD on 06/02/2025 23:01:22
--- NOTE | ~2025-06-02 | XR_ITS ---
CLINICAL HISTORY: pain 1 view chest x-ray Comparison: CR - XR CHEST 1V - 04/21/25 12:31 EDT Findings: Low lung volume, lungs are otherwise clear. Heart size is normal. No acute fracture. IMPRESSION: 1. Low lung volume, otherwise unremarkable. This document has been electronically signed by: Rj Pineda MD on 06/02/2025 21:06:41
--- NOTE | 2025-06-02 19:07 | ECG_ITS ---
Test Reason : cp Blood Pressure : */* mmHG Vent. Rate : 103 BPM Atrial Rate : 103 BPM P-R Int : 150 ms QRS Dur : 80 ms QT Int : 340 ms P-R-T Axes : 37 -15 11 degrees QTcB Int : 445 ms Sinus tachycardia Possible Anterior infarct (cited on or before 02-Nov-2020) Abnormal ECG When compared with ECG of 27-Apr-2025 14:57, No significant change was found Referred By: Generic ED Physician Electronically Signed By: VITO MARTINEZ MD
[2025-06-02 19:08] VITALS: BP 148/96; BP 168/140; PULSE 103; PULSE 88; RESP 18; TEMP 36.6; O2SAT 95; O2SAT 99; BMI 35.5
--- OUTSIDE RECORDS SUMMARY | 2025-06-02 19:58 | XMS_ITS | Encounter Summary ---
Author Organization [facility] Address [address] [place] [address] Care Team Providers Care Manager Real Estate Name Role Phone Rosa Sepulveda NP Primary Care Provider +1- [phone] Encounter Details Date Type Department Care Team ([facility] st Contact Info) Description 07/23/2020 Scanned Document [facility] Plastic & Reconstructive Surgery [address] [place] [phone] David Corrales MD [address] [place] [address] Social History Tobacco Use Types Packs/Day Years [...] on filedocumented in this encounter Care Teams Manager Real Estate Relationship Specialty Start Date End Date Rosa Sepulveda NP [address] [place] [address] PCP - General 05/09/19 documented as of this encounter
--- OUTSIDE RECORDS SUMMARY | 2025-06-02 19:58 | XMS_ITS | Clinical Summary ---
Author Organization [facility] Address [address] [place] [address] Care Team Providers Care Manager Validation Name Role Phone Rosa Sepulveda NP Primary Care Provider +1- [phone] Allergies Active Allergy Reactions Criticality Noted Date [...] Years) (1 of 2 - PCV) 2002 Influenza Vaccine 03/23/2025 COVID-19 Vaccine ( - 2023- season) 2025 HPV Vaccines (No Doses Required) Completed Insurance MEDICARE PART A & B MEDICAID OUT OF STATE [facility] [place] Advance Directives * Full Code (Latest Code Status on File) Date Activated Date Inactivated Comments 06/19/2019 11:45 AM 07/11/2019 11:50 AM Care Teams Manager Validation Relationship Specialty Start Date End Date Rosa Sepulveda NP [address] [place] [address] PCP - General 05/09/19
--- OUTSIDE RECORDS SUMMARY | 2025-06-02 19:58 | XMS_ITS | Encounter Summary ---
Author Organization [facility] Address [address] [place] [address] Care Team Providers Care Mooner Name Role Phone Rosa Sepulveda NP Primary Care Provider +1- [phone] Encounter Details Date Type Department Care Team (Late st Contact Info) Description 07/08/2020 [facility] Plastic & Reconstructive Surgery [address] [place] [address] David Corrales MD [address] [place] [address] Social History Tobacco Use Types Packs/Day Years [...] on filedocumented in this encounter Care Teams Mooner Relationship Specialty Start Date End Date Rosa Sepulveda NP [address] [place] [address] PCP - General 05/09/19 documented as of this encounter
--- OUTSIDE RECORDS SUMMARY | 2025-06-02 19:59 | XMS_ITS | Clinical Summary ---
Author Organization [facility] Address [address] [place] [address] Phone Care Team Providers Care Warp Dyeing Tender Name Role Phone Physician, No Pcp Primary Care Provider Unavaila ble Allergies Active Allergy Reactions Criticality Noted Date Comments Acetaminophen 03/20/2022 Baclofen Hives Medium 06/20/2019 Diclofenac Sodium 02/08/2020 Topical,states stweard skin off Lidocaine 03/20/2022 Topical cream Homer C Jones Unknown 02/21/2025 Hx lithium toxicity Metformin 03/20/2022 [...] Problem Noted Date Diagnosed Date Alcohol withdrawal ([facility] [place], [facility] V28) Depression 05/14/2022 Diabetes mellitus ([facility]24, [facility] V28) 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 Encounters Date Type Department Care Team Description 05/03/2025 9:34 AM EDT - 05/03/2025 11:23 AM EDT Emergency [facility] Emergency [address] [place] [address] Kenton Panchal MD Fall, initial encounter (Primary Dx); Contusion of left hip, initial encounter Discharge Disposition: Home or Self Care from Last 3 Months Surgical History Surgery Date Site/Laterality Comments OTHER SURGICAL HISTORY PROCEDURE: [place] ANESTHESIA OPEN HIP JOINT PROCEDURE NOS Medical History Medical History Date Comments Anxiety DX:Anxiety PTSD (post-traumatic stress disorder) DX:PTSD (post-traumatic stress disorder) 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) DM (diabetes mellitus) ([facility] V24, [facility] V28) History of right lower extre mity amputation ([facility] V[facility], [facility] V28) Social History Tobacco Use Types Packs/Day [...] of 3 - 19+ 3-dose series) 2002 HPV Vaccines (1 - 3-dose SCDM series) 2010 Pneumococcal Vaccine: Pediatrics (0 to 5 Years) [...] VIEWS LEFT STAT 05/03/2025 10:32 AM EDT BASIC METABOLIC PANEL Timed 02/25/2025 6:24 AM EDT from Last 3 Months or Most Recently Relevant to Health Maintenance Results * XR Hip 2-3 Views Left [...] Signed Date: 05/03/2025 10:46 ET Workstation ID: [id number] Transcribed By: Self Edit Transcribed Date: 05/03/2025 [...] Signed Date: 05/03/2025 10:46 ET Workstation ID: [id number] Transcribed By: Self Edit Transcribed Date: 05/03/2025 10:44 ET us Kenton Panchal MD IMG XR PROCEDURES Final Res ult * (ABNORMAL) Basic metabolic panel (02/25/2025 6:24 AM EDT) Sodium 137 133 - 145 mmol/L LAB CHEMISTRY METHOD 02/25/2025 7:28 AM [facility] Potassium 3.6 3.5 - 5.5 mmol/L LAB CHEMISTRY METHOD 02/25/2025 7:28 AM [facility] Chloride 104 96 - 110 mmol/L LAB CHEMISTRY METHOD 02/25/2025 7:28 AM [facility] CO2 27 21 - 32 mmol/L LAB CHEMISTRY METHOD 02/25/2025 7:28 AM [facility] Anion Gap 6 3 - 11 LAB CHEMISTRY METHOD 02/25/2025 7:28 AM [facility] Glucose 157(H) 70 - 100 mg/dL LAB CHEMISTRY METHOD 02/25/2025 7:28 AM [facility] BUN 6 5 - 25 mg/dL LAB CHEMISTRY METHOD 02/25/2025 7:28 AM [facility] Creatinine 0.62(L) 0.70 - 1.30 mg/dL LAB CHEMISTRY METHOD 02/25/2025 7:[address] [facility] eGFR 122 >=60 mL/min/1. 73m2 LAB CHEMISTRY METHOD 02/25/2025 7:[address] [facility] Comment:Calculation based on the Chronic Kidney Disease Epidemiology Collaboration (CKD-EPI) equation refit without adjustment for race. BUN/Creatinine Ratio 9.7 LAB CHEMISTRY METHOD 02/25/2025 7:[address] [facility] Calcium 8.9 8.5 - 10.5 mg/dL LAB CHEMISTRY METHOD 02/25/2025 7:[address] [facility] Blood Venous blood specimen / Unknown Venipuncture / Unknown 02/25/2025 6:24 AM EDT 02/25/2025 6:49 AM EDT Alex Retana MD LAB BLOOD ORDERABLES Final Resul t [facility] [address] [place] [address], from Last 3 Months or Most Recently Relevant to Health Maintenance Insurance MEDICARE MEDICAID - [place] Advance Directives [...] currently active code status orders. Care Teams Warp Dyeing Tender Relationship Specialty Start Date End Date Physician, No Pcp PCP - General 02/22/25
--- OUTSIDE RECORDS SUMMARY | 2025-06-02 19:59 | XMS_ITS | Encounter Summary ---
Author Organization [facility] Address [address] [place] [address] Care Team Providers Care Distance Learning Coordinator Name Role Phone Rosa Sepulveda NP Primary Care Provider +1- [phone] Encounter Details Date Type Department Care Team (Late st Contact Info) Description 07/17/2019 Scanned Document [facility] Plastic & Reconstructive Surgery [address] [place] [phone] David Corrales MD [address] [place] [address] Social History Tobacco Use Types Packs/Day Years [...] documented as of this encounter Care Teams Distance Learning Coordinator Relationship Specialty Start Date End Date Rosa Sepulveda NP [address] [place] [address] PCP - General 05/09/19 documented as of this encounter
--- OUTSIDE RECORDS SUMMARY | 2025-06-02 19:59 | XMS_ITS | Encounter Summary ---
Author Organization [facility] Address [address] [place] [address] Care Team Providers Care Management Liaison Name Role Phone Rosa Sepulveda BOAT OFFICER Primary Care Provider +1- [phone] Encounter Details Date Type Department Care Team (Late st Contact Info) Description 04/11/2020 Scanned Document [facility] Plastic & Reconstructive Surgery [address] [place] [address] David Corrales MD [address] [place] [address] Social History Tobacco Use Types Packs/Day Years [...] on filedocumented in this encounter Care Teams Management Liaison Relationship Specialty Start Date End Date Rosa Sepulveda NP [address] [place] [address] PCP - General 05/09/19 documented as of this encounter
--- OUTSIDE RECORDS SUMMARY | 2025-06-02 19:59 | XMS_ITS | Encounter Summary ---
Author Organization [facility] Address [address] [place] [address] Care Team Providers Care Feed Crusher Operator Name Role Phone Rosa Sepulveda HSE MANAGER Primary Care Provider +1- [phone] Encounter Details Date Type Department Care Team (Late st Contact Info) Description 04/11/2020 Scanned Document [facility] Plastic & Reconstructive Surgery [address] [place] [address] David Corrales MD [address] [place] [address] Social History Tobacco Use Types Packs/Day Years [...] on filedocumented in this encounter Care Teams Feed Crusher Operator Relationship Specialty Start Date End Date Rosa Sepulveda NP [address] [place] [address] PCP - General 05/09/19 documented as of this encounter
--- OUTSIDE RECORDS SUMMARY | 2025-06-02 20:01 | XMS_ITS | Encounter Summary ---
Author Organization [facility] Address [address] [place] [address] Phone Care Team Providers Care Customer Sales Service Manager Name Role Phone Rosa Sepulveda NP Primary Care Provider +1- [phone] Encounter Details Date Type Department Care Team (Late st Contact Info) Description 05/27/2020 Procedure Pass [place] Admitting Dept - Virtual Department [address] [place] [address] Social History Tobacco Use Types Packs/Day Years [...] on filedocumented in this encounter Care Teams Customer Sales Service Manager Relationship Specialty Start Date End Date Rosa Sepulveda NP [address] [place] [address] PCP - General Family Medicine 09/13/19 documented as of this encounter Additional Source Comments The information contained in this document represents components of the legal health record. It is not the complete legal health record.[facility]
--- OUTSIDE RECORDS SUMMARY | 2025-06-02 20:01 | XMS_ITS | Encounter Summary ---
Author Organization [facility] Address [address] [place] [address] Phone Care Team Providers Care Toddler Nanny Name Role Phone Rosa Sepulveda NP Primary Care Provider +1- [phone] Encounter Details Date Type Department Care Team (Late st Contact Info) Description 05/27/2020 Procedure Pass [place] Admitting Dept - Virtual Department [address] [place] [address] Social History Tobacco Use Types Packs/Day Years [...] on filedocumented in this encounter Care Teams Toddler Nanny Relationship Specialty Start Date End Date Rosa Sepulveda NP [address] [place] [address] PCP - General Family Medicine 09/13/19 documented as of this encounter Additional Source Comments The information contained in this document represents components of the legal health record. It is not the complete legal health record.[facility]
--- OUTSIDE RECORDS SUMMARY | 2025-06-02 20:04 | XMS_ITS | Encounter Summary ---
Author Organization [facility] Address [address] [facility] [address] [place] [address] Phone Care Team Providers Care Technology Training Associate Name Role Phone Rosa Sepulveda MEDIUM CYCLE SALESPERSON Primary Care Provider +1- [phone] Encounter Details Date Type Department Care Team (Late st Contact Info) Description 06/01/2025 Procedure Pass [facility], Ct Scan - [facility] [address] [place] [address] Social History Tobacco Use Types Packs/Day Years [...] on file documented as of this encounter Functional Status * Calculated C-SSRS Risk Score (Lifetime/Recent) Answer Date of Assessment Author Low Risk 06/01/2025 2:31 PM EDT Pat Campo RN * [place] Suicide Severity Rating Scale (Screener/Recent Self-Report) Question [...] 1 Month) No 06/01/2025 2:31 PM EDT Alber, E mma, RN 6. Suicidal Behavior (Lifetime) No 5 2:31 PM EDT Pat Campo RN documented as of this encounter Plan of Treatment Not on file documented as of this encounter Visit Diagnoses Not on filedocumented in this encounter Care Teams Technology Training Associate Relationship Specialty Start Date End Date Rosa Sepulveda NP [address] [place] [address] PCP - General Family Medicine 09/13/19 documented as of this encounter Additional Source Comments The information contained in this document represents components of the legal health record. It is not the complete legal health record.[facility]
--- OUTSIDE RECORDS SUMMARY | 2025-06-02 20:04 | XMS_ITS | Encounter Summary ---
Author Organization [facility] Address [address] [facility] [address] [place] [address] Phone Care Team Providers Care Laborer Hoisting Name Role Phone Rosa Sepulveda COMPUTER SPECIALIST Primary Care Provider +1- [phone] Encounter Details Date Type Department Care Team (Late st Contact Info) Description 06/01/2025 Procedure Pass [facility], Ct Scan - [facility] [address] [place] [address] Social History Tobacco Use Types Packs/Day Years [...] 2:31 PM EDT Pat Campo RN * [place] Suicide Severity Rating Scale (Screener/Recent Self-Report) Question [...] on filedocumented in this encounter Care Teams Laborer Hoisting Relationship Specialty Start Date End Date Rosa Sepulveda NP [address] [place] [address] PCP - General Family Medicine 09/13/19 documented as of this encounter Additional Source Comments The information contained in this document represents components of the legal health record. It is not the complete legal health record.[facility]
--- OUTSIDE RECORDS SUMMARY | 2025-06-02 20:05 | XMS_ITS | Clinical Summary ---
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 Jsk-Bsktavbbxfq-Dvegromiilv en 09/13/2019 Diclofenac Sodium 02/08/2020 Topical,states steward [...] Depression 05/18/2019 Neuropathy 05/18/2019 Sacral wound 05/18/2019 Encounters Date Type Department Care Team Description 06/01/2025 6:36 AM EDT - 06/02/2025 12:37 PM EDT Hospital Encounter [facility] [address] [place] [id number] Jaiden Govea MD Devries, MD Saeed Martinez, Sharda Drake MD Discharge Disposition: Home or Self Care 06/01/2025 Procedure Pass [facility] Scan [address] [address] 06/01/2025 Procedure [facility] Scan [address] [address] from Last 3 Months Social History Tobacco Use Types Packs/Day Years [...] have you moved in the past 12 wed th? Unable to assess 06/01/2025 Paying for Meds [...] Mass Index 38.22 06/01/2025 8:25 AM EDT Plan of Treatment Health Maintenance Due Date Last Done Comments Adult Td,Tdap Booster 1983 LIPID PANEL 1983 VALPROIC ACID (DEPAKENE) LEVEL 1983 DEPRESSION SCREENING 1995 SMOKING Hx and SMOKELESS TOBACCO SCREENING 02/01/1996 HEPATITIS C SCREENING 2001 HIV ONE-TIME SCREENING (18-6 5 YEARS) 2001 PNEUMOCOCCAL VACCINES (0-49 years) (1 of 2 - PCV) 2002 SCREENING FOR DIABETES 2018 INFLUENZA VACCINE (#1) 2025 COVID-19 VACCINE ( - 2024-2 6 season) 2025 07/29/2021, 01/16/2021, [...] this topic Medical Devices Not on file Procedures Procedure Name Priority Date/Time Associated Diagnosis [...] ECG 12-LEAD STAT 06/01/2025 6:48 AM EDT TROPONIN Routine 06/01/2025 6:42 AM EDT LIPASE Routine 06/01/2025 6:42 AM EDT SALICYLATES STAT 06/01/2025 6:42 AM EDT ACETAMINOPHEN LEVEL STAT 06/01/2025 6 :42 AM EDT ETHANOL, BLOOD STAT 06/01/2025 6:42 AM EDT VENOUS BLOOD GAS STAT 06/01/2025 6:42 AM EDT PT-INR STAT 06/01/2025 6:42 AM EDT MAGNESIUM STAT 06/01/2025 6:42 AM EDT LFTS (HEPATIC PANEL) STAT 06/01/2025 6:42 AM EDT BASIC METABOLIC PANEL STAT 06/01/2025 6:42 AM EDT CBC AND DIFFERENTIAL STAT 06/01/2025 6:42 AM EDT from Last 3 Months Results * XR FOOT 3 OR MORE VIEWS (LEFT) (06/02/2025 6:59 AM EDT) MGB IMG CUTTER OUT COMMENT Erosive changes involving the third digit proximal phalanx with widening of the joint may represent septic arthritis. Further imaging with MRI recommended. [facility] Anatomical Region Laterality Modality Foot Left Computed Radiogr aphy 06/02/2025 7:20 AM EDT Impressions 06/02/2025 7:47 AM EDT Erosive changes involving the third digit proximal phalanx with widening of the joint may represent septic arthritis. Further imaging with MRI recommended. A clinically significant result was initiated on 06/02/2025 7:47 AM, Message ID [id number]. ATTESTATION: Abimbola Frausto as teaching physician, have reviewed the images [...] was initiated on 06/02/2025 7:47 AM,Message ID [id number]. ATTESTATION: Abimbola Frausto as teaching physician, have reviewed theimages for this case and if necessary edited the report originally createdby Gina Parkinson. us Jaiden Govea MD IMG XR LOWER EXTREMITY Final Res ult * POCT Glucose (06/02/2025 4:11 AM EDT) 06/02/2025 4:11 AM EDT us Jaiden Govea MD POINT OF CARE TEST ORDERABLES Fi nal Result * Troponin (06/01/2025 2:30 PM EDT) Only the most recent of2 resultswithin the time period is included. Troponin-T, HS Gen5 14 0 - 14 ng/L [facility] Blood 06/01/2025 2:30 PM EDT 06/01/2025 2:37 PM EDT us Jaiden Govea MD LAB BLOOD ORDERABLES Final Resul t Performing Organization Address City/State/[facility] Co de Phone Number [address] [address] * XR CHEST 1 VIEW (06/01/2025 2:25 PM EDT) Anatomical Region Laterality Modality Chest Computed Radiogr aphy 06/01/2025 3:47 PM EDT Impressions 06/01/2025 4:35 PM EDT No acute abnormality. ATTESTATION: I, Bonnie Carlton as teaching physician, have reviewed the images for this case and if necessary edited the report originally created by Deborah Carver MD. Narrative 06/01/2025 4:35 PM EDT XR CHEST 1 VIEW Referring clinician's provided indication for this examination in [facility]: Pain; Wide mediastinum on AP, COMPARISON: XR CHEST PORTABLE 07:09:[id number] FINDINGS: Devices/Tubes/Lines: None. Lungs: Low lung volumes with bronchovascular crowding. No focal consolidation. Pleura: No pleural effusion or pneumothorax. Heart/Mediastinum: Normal heart size. Bones/Soft Tissues: No significant abnormality. Procedure Note Bonnie Carlton MBBS - 06/01/2025 XR CHEST 1 VIEW Referring clinician's provided indication for this examination in [facility]:Pain; Wide mediastinum on AP, COMPARISON: XR CHEST [...] the report originallycreated by Deborah Carver MD. us Jaiden Govea MD IMG XR CHEST Final Result * CT CERVICAL SPINE WITHOUT CONTRAST (06/01/2025 8:08 AM EDT) Anatomical Region Laterality Modality C-spine Computed Tomogra phy 06/01/2025 8:5 4 AM EDT Impressions 06/01/2025 9:03 AM EDT 1. No acute intracranial findings. 2. No acute fracture or traumatic malalignment of the cervical spine. Narrative 06/01/2025 9:[address] HEAD WITHOUT CONTRAST, CT CERVICAL SPINE WITHOUT CONTRAST Referring clinician's provided indication for this examination in [facility]: * Mental status change, unknown cause TECHNIQUE: [...] clinician's provided indication for this examination in [facility]: * Mental status change, unknown cause TECHNIQUE: [...] clinician's provided indication for this examination in [facility]: *Mental status change, unknown cause TECHNIQUE: CTs [...] clinician's provided indication for this examination in [facility]: Respiratory failure COMPARISON: None FINDINGS: Devices/Tubes/Lines: None. Lungs: There are low lung volumes with mild prominence of interstitium likely related to technique. No definite consolidation. Pleura: No pleural effusion or pneumothorax. Heart/Mediastinum: Widening of the cardiomediastinal silhouette Bones/Soft Tissues: No significant abnormality. Procedure Note Pratima Garcia MD - 06/01/2025 XR CHEST PORTABLE Referring clinician's provided indication for this examination in [facility]:Respiratory failure COMPARISON: None FINDINGS: Devices/Tubes/Lines: None. Lungs: [...] able or CT scan if clinically indicated. us Jaiden Govea MD IMG XR CHEST Final Result * (ABNORMAL) POCT Glucose (06/01/2025 6:49 AM EDT) Glucose, POCT 171(H) 70 - 100 mg/dL [facility] 06/01/2025 6:49 AM EDT 06/01/2025 6:54 AM EDT us Jaiden Govea MD POINT OF CARE TEST ORDERABLES Fi nal Result [address] [address] * ECG 12-LEAD (06/01/2025 6:48 AM EDT) Ventricular Rate EKG/MIN 98 BPM [facility] Atrial Rate 98 BPM [facility] CA Interval 158 ms [facility] QRS Duration 84 ms [facility] QT Interval 348 ms [facility] QTC Interval 444 ms [facility] P Comfrey 52 degrees [facility] R Wave Comfrey -14 degrees [facility] T Wave Comfrey 37 degrees [facility] 06/01/2025 6:48 AM EDT 06/01/2025 11:49 AM EDT Narrative [facility] - 06/01/2025 11:49 AM EDT Normal sinus rhythm Cannot rule out Anterior infarct , age undetermined Abnormal ECG No previous ECGs available Confirmed by Moises MARQUEZ ([id number]) on 06/01/2025 11:49:35 AM us Jaiden Govea MD ECG ORDERABLES Final Result [facility] * (ABNORMAL) Ethanol, blood (06/01/2025 6:42 AM EDT) ETHANOL 419(H) <10 mg/dL [facility] Blood 06/01/2025 6:42 AM EDT 06/01/2025 7:00 AM EDT us Jaiden Govea MD LAB BLOOD ORDERABLES Final Resul t Performing Organization Address [facility] de Phone Number [address] [address] * (ABNORMAL) LFTs (hepatic panel) (06/01/2025 6:42 AM EDT) ALKALINE PHOSPHATASE 120(H) 39 - 117 U/L [facility] TOTAL BILIRUBIN 0.5 0.0 - 1.2 mg/dL [facility] DIRECT BILIRUBIN 0.1 0.0 - 0.2 mg/dL [facility] Bilirubin (Indirect) NOT CALCULATED 0 - 1.5 mg/dL [facility] AST 45(H) 0 - 37 U/L [facility] ALT 38 0 - 40 U/L [facility] TOTAL PROTEIN 8.1(H) 6.5 - 8.0 g/dL [facility] ALBUMIN 4.8 3.9 - 4.8 g/dL [facility] GLOBULIN 3.3 1 - 4.8 g/dL [facility] A/G Ratio 1.45 1.00 - 4.80 RATIO [facility] Blood 06/01/2025 6:42 AM EDT 06/01/2025 7:00 AM EDT us Jaiden Govea MD LAB BLOOD ORDERABLES Final Resul t Performing Organization Address [facility] de Phone Number [address] [address] * (ABNORMAL) PT-INR (06/01/2025 6:42 AM EDT) PT 14.0(H) 10.2 - 12.9 sec [facility] INR 1.1 0.9 - 1.1 [facility] Comment:Therapeutic range fo r oral Vitamin K antagonists: 2.0-3.5 Blood 06/01/2025 6:42 AM EDT 06/01/2025 7:00 AM EDT Jaiden Govea MD LAB BLOOD ORDERABLES Final Resul t [facility] [address] [place] [address] * (ABNORMAL) CBC and differential (06/01/2025 6:42 AM EDT) WBC 12.83(H) 4.00 - 11.00 K/uL [facility] RBC 5.96(H) 4.50 - 5.90 M/uL [facility] HGB 15.2 13.5 - 17.5 g/dL [facility] HCT 48.0 41.0 - 53.0 % [facility] PLT 325 150 - 450 K/uL [facility] MCV 80.5 80.0 - 100.0 fL [facility] MCH 25.5(L) 27.0 - 31.0 pg [facility] MCHC 31.7(L) 32.0 - 36.0 g/dL [facility] RDW 15.0(H) 11.5 - 14.5 % [facility] MPV 10.7 8.4 - 12.0 fL [facility] NRBC 0.00 0.00 /100 WBCs [facility] ABSOLUTE NRBC 0.00 0.00 K/uL [facility] DIFF METHOD Manual [facility] TOTAL CELLS COUNTED 100 [facility] NEUTS 56.0 48.0 - 76.0 % [facility] BANDS 3.0 0 - 10 % [facility] LYMPHS 33.0 18.0 - 41.0 % [facility] Comment:Few atypical Lymphs seen. MONOS 3.0(L) 4.0 - 11.0 % [facility] EOS 1.0 0.0 - 5.0 % [facility] BASOS 2.0(H) 0.0 - 1.5 % [facility] MYELOS 1.0(H) 0 % [facility] METAS 1.0(H) 0 % [facility] ABSOLUTE NEUTS 7.57 1.92 - 7.60 K/uL [facility] ABSOLUTE LYMPHS 4.23(H) 0.72 - 4.10 K/uL [facility] ABSOLUTE MONOS 0.38 0.16 - 1.10 K/uL [facility] ABSOLUTE EOS 0.13 0.00 - 0.50 K/uL [facility] ABSOLUTE BASOS 0.26(H) 0.00 - 0.15 K/uL [facility] ABSOLUTE MYELOS 0.13 K/uL [facility] ABSOLUTE METAS 0.13 K/uL [facility] Blood 06/01/2025 6:42 AM EDT 06/01/2025 7:00 AM EDT us Jaiden Govea MD LAB BLOOD ORDERABLES Final Resul t Performing Organization Address City/[facility]/ZIP Co de Phone Number [address] [address] * Magnesium (06/01/2025 6:42 AM EDT) MAGNESIUM 2.1 1.6 - 2.6 mg/dL [facility] Blood 06/01/2025 6:42 AM EDT 06/01/2025 7:00 AM EDT us Jaiden Govea MD LAB BLOOD ORDERABLES Final Resul t Performing Organization Address [facility] Co de Phone Number [address] [address] * Lipase (06/01/2025 6:42 AM EDT) LIPASE 58 16 - 63 U/L [facility] 06/01/2025 6:42 AM EDT 06/01/2025 7:00 AM EDT us Jaiden Govea MD LAB BLOOD ORDERABLES Final Resul t Performing Organization Address [facility] Co de Phone Number [address] [address] * (ABNORMAL) Venous blood gas (06/01/2025 6:42 AM EDT) pH, Venous 7.25(L) 7.31 - 7.41 [facility] PCO2, Venous 38.80(L) 41.00 - 51.00 mmHg [facility] PO2, Venous 111.40(H) 35.00 - 40.00 mmHg [facility] HCO3, Venous 17(L) 23 - 28 mmol/L [facility] BASE DEFICIT VENOUS 9.7(H) 0.0 - 2.0 mmol/L [facility] SO2, VENOUS 97.10(H) 60.00 - 80.00 % [facility] FO2HB, VENOUS 94.00(H) 71.00 - 74.00 % [facility] Carboxy Hgb 3.10(H) 0 - 1.50 % [facility] MetHgb % 0.10 0 - 1.50 % [facility] Blood 06/01/2025 6:42 AM EDT 06/01/2025 6:59 AM EDT us Jaiden Govea MD LAB BLOOD ORDERABLES Final Resul t Performing Organization Address [facility] de Phone Number [address] [address] * (ABNORMAL) Acetaminophen level (06/01/2025 6:42 AM EDT) ACETAMINOPHEN <5.0(L) 15.0 - 30.0 ug/mL [facility] Blood 06/01/2025 6:42 AM EDT 06/01/2025 7:00 AM EDT us Jaiden Govea MD LAB BLOOD ORDERABLES Final Resul t Performing Organization Address [facility] Co de Phone Number [address] [address] * (ABNORMAL) Salicylates (06/01/2025 6:42 AM EDT) SALICYLATES <0.3(L) 2.8 - 19.9 mg/dL [facility] Blood 06/01/2025 6:42 AM EDT 06/01/2025 7:00 AM EDT us Jaiden Govea MD LAB BLOOD ORDERABLES Final Resul t Performing Organization Address City/[facility] Co de Phone Number [address] [address] * (ABNORMAL) Basic metabolic panel (06/01/2025 6:42 AM EDT) SODIUM 140 133 - 146 mmol/L [facility] CHLORIDE 102 96 - 108 mmol/L [facility] POTASSIUM 3.4 3.3 - 5.1 mmol/L [facility] CO2 18(L) 21 - 35 mmol/L [facility] BUN 13 6 - 19 mg/dL [facility] CREATININE 0.60 0.5 - 1.5 mg/dL [facility] GLUCOSE 177(H) 70 - 99 mg/dL [facility] CALCIUM 9.3 8.4 - 10.3 mg/dL [facility] EGFR >120 >59 mL/min/1.7 3m2 [facility] Comment:Estimated glomerular filtration rate calculated using the CKD-EPI refit equation. ANION GAP 23(H) 10 - 20 mmol/L [facility] Blood 06/01/2025 6:42 AM EDT 06/01/2025 7:00 AM EDT Jaiden Govea MD LAB BLOOD ORDERABLES Final Resul t Performing Organization Address [facility] de Phone Number [address] [address] from Last 3 Months Insurance MEDICARE PART A & B [place] & B [facility] MEDICARE PART A & [place] & B [facility] MEDICARE [facility] A & B [facility] MEDICARE PART A & B [facility] MEDICARE PART A & [place] [address] [place] [address]HEALTH MEDICARE PART A & B [facility] MEDICARE PART A & B [facility] Care Teams Political Aide Relationship Specialty Start Date End Date Rosa Sepulveda NP [address] [place] [id number] PCP - General Family Medicine 09/13/19 Additional Source Comments The information contained in this document represents components of the legal health record. It is not the complete legal health record.[facility]
[2025-06-02 20:06] LABS: MANUAL DIFF FLAG NO
[2025-06-02 20:08] LABS: Appearance Urine Clear; Glucose Urine UA Negative (Negative); PH 6.0 (5.0-9.0); Specific Gravity - Urine 1.025 (1.005-1.025)
[2025-06-02 20:19] LABS: Cannabinoid Screen Urine POSITIVE (Not Detect)
[2025-06-02 20:20] LABS: Alanine Aminotransferase 38 U/L (0-40); Albumin Level 4.8 g/dL (3.5-5.0); Alkaline Phosphatase 95 U/L (39-117); Anion Gap 14 (12-20); Aspartate Amino Transferase 41 U/L (5-37); Blood Urea Nitrogen 18 mg/dL (9-16); Calcium 9.2 mg/dL (8.4-10.2); Carbon Dioxide 26 mmol/L (22-29); Chloride 104 mmol/L (96-108); Creatinine Clr Calc Pharmacy 199.5; Estimated Glomerular Filt Rate > 60; Potassium 4.3 mmol/L (3.3-5.1); Sodium 140 mmol/L (135-145); Total Protein 7.4 g/dL (6.5-8.0)
[2025-06-02 21:01] LABS: Hematocrit 39.6 % (42.0-52.0); Hemoglobin 12.7 g/dl (14.0-18.0); Imm Gran Abs Auto 0.07 X10*3/uL (0.00-0.03); Imm Gran Pct Auto 0.5 % (0.0-0.4); Lymphocytes Absolute Auto 0.9 X10*3/uL (1.2-4.9); Mean Corpuscular HGB Conc 32.1 g/dl (31.0-36.0); Mean Corpuscular Hemoglobin 25.7 pg (27.0-33.0); Mean Corpuscular Volume 80.2 fL (80.0-98.0); NRBC Abs Auto 0.000 X10*3/uL (0.0-0.012); NRBC Pct Auto 0.0 /100WBC (0.0-0.2); Platelet Count 211 X10*3/uL (160-400); Red Blood Count 4.94 X10*6/uL (4.60-5.80); White Blood Count 13.8 X10*3/uL (4.8-10.8)
--- NOTE | 2025-06-02 21:36 | ED.GENADULT ---
HPI - General Adult General Chief complaint: General Medical Stated complaint: alcohol withdrawl Time Seen by Provider: 06/02/25 20:08 Source: patient Limitations: no limitations History of Present Illness ED Provider: Libia Coon PA-C HPI narrative: 40-year-old male with hx of Guillian Pittston syndrome wheelchair-bound, peripheral vascular disease status post right BKA, peripheral neuropathy, sacral decubitus ulcer, type 2 [id number]-gkuiwuolc diabetes mellitus, hypertension, alcohol use disorder, prior AKA and ETOH withdrawal, mood disorder with history of SI, right hip osteoarthritis status post replacement presents requesting detox. Patient states he consumes a L of vodka on a daily basis, his last drink was 2 days ago. He is here requesting detox. Patient also states while at the homeless assisted, someone accidentally ?performed chest compressions and ?. He now has diffuse anterior chest wall pain. He states he was assessed at [facility] and had a negative assessment. Patient also complains of osteomyelitis of the left foot, but he ran out of his antibiotics. Denies fever. Related Data Home Medications ?Medication ?Instructions ?Recorded ?Confirmed hydroxyzine HCl 50 mg tablet 50 mg PO TID 04/14/25 06/04/25 omeprazole 40 mg capsule,delayed 40 mg PO BID@0630,1630 04/14/25 06/04/25 release pregabalin 225 mg capsule 225 mg PO BID 04/14/25 06/04/25 quetiapine 300 mg tablet 300 mg PO BEDTIME 04/14/25 04/27/25 sertraline 100 mg tablet 150 mg PO DAILY 04/14/25 04/27/25 daptomycin 500 mg intravenous 500 mg IV DAILY 04/27/25 06/04/25 solution Previous Rx's ?Medication ?Instructions ?Recorded loperamide 2 mg capsule 2 mg PO Q6H PRN diarrhea #30 caps 04/18/25 (Anti-Diarrheal (loperamide)) bisacodyl 5 mg tablet,delayed 20 mg (4 x 5 mg) PO ONCE 05/01/25 release (Dulcolax (bisacodyl)) colonoscopy prep 1 day #4 tabs polyethylene glycol 3350 17 238 g PO ONCE colonoscopy prep 1 05/01/25 gram/dose oral powder (Miralax) day #238 grams ondansetron 4 mg disintegrating 4 mg PO Q8H PRN nausea and 05/21/25 tablet vomiting #20 tabs Allergies Allergy/AdvReac Type Severity Reaction Status Date / Time baclofen Allergy Hives Verified 06/02/25 19:13 escitalopram (From Lexapro) Allergy Vomiting Verified 06/02/25 19:13 lithium Allergy Unresponsiv Verified 06/02/25 19:13 e metformin Allergy Unknown Verified 06/02/25 19:13 morphine Allergy Hives Verified 06/02/25 19:13 sulfamethoxazole (From Allergy Hives Verified 06/02/25 19:13 Bactrim) tramadol Allergy Hives Verified 06/02/25 19:13 trimethoprim (From Bactrim) Allergy Hives Verified 06/02/25 19:13 Review of Systems Review of Systems: Yes all other systems are reviewed and are negative Constitutional: Constitutional: Denies fatigue and Denies fever(s) Cardiovascular: Cardiovascular: Reports chest pain and Denies dyspnea Respiratory: Respiratory: Denies cough and Denies dyspnea Gastrointestinal: Gastrointestinal: Denies abdominal pain, Denies nausea and Denies vomiting Musculoskeletal: Musculoskeletal: Reports arthralgias and Reports joint swelling Integumentary/Breasts: Skin/Breast: Reports erythema and Reports wounds Endocrine: Endocrine: Denies fatigue PMFSH Past Medical History Attestation statement: The following information was validated with the patient. Medical History Sacral decubitus ulcer Osteomyelitis of foot Decubitus ulcer Amputation of one or more toes Aftercare following right hip joint replacement surgery Bipolar disorder PTSD (post-traumatic stress disorder) Sacral decubitus ulcer Peripheral neuropathy Non-insulin dependent type 2 diabetes mellitus Guillain-Pittston Surgical History History of esophagogastroduodenoscopy (EGD) Hx of laminectomy History of total hip replacement Hx of right BKA Social History Social History Household Members: None Housing: House Are you a primary healthcare administrator to a significant other at home: No Do you presently have visiting nurse or other home services: Yes (RN PALLIATIVE daily) Alcohol intake: former Comment: stand pivot to luz marina avila Patient Tobacco Use Status: Current everyday Tobacco user Tobacco use type: Cigarette Cigarette Packs Per Day: 1.5 Cigarettes Per Day: 30.0 Years Smoked: 29 e-Cigarette/Vaping Use: Never Used Second Hand Smoke Exposure: No Substance Use Type: Crack/Cocaine service: No Physical Exam ED Vital Signs: Vital Signs - 24 hr 06/04/25 00:27 06/04/25 07:28 06/04/25 13:30 Temperature 98.1 F 98.4 F 98.4 F Pulse Rate 89 102 H 102 H Respiratory Rate 16 18 18 Blood Pressure 149/98 H 159/110 H 159/110 H Pulse Oximetry 95 96 96 Oxygen Delivery Method Room Air Room Air Room Air BMI result Body Mass Index 35.5 Const Other: Alert, appears older than stated age Orientation/consciousness: patient oriented x3 Chest Other: No deformity Resp Effort & Inspection: normal respiratory effort Cardio Other: Normal peripheral perfusion Skin Other: Warm dry no rash Neuro General: patient oriented x3, no focal motor deficits and CN's II-XI intact bilaterally Extrem Other: The left foot has scattered wounds, mildly erythematous, some skin discoloration and regions, no active purulence from any site Psych Other: Cooperative Course Reevaluation(s) Reevaluation #1: Time: 04:12 Date: 06/03/25 Provider: OLVIN Rivas Patient in physician observation for psychiatric evaluation.? No acute events reported overnight. No current complaints. VS stable.? Patient is in bed search status/pending CARE team evaluation. Will continue to monitor. Reevaluation #2: 10:28 AM 06/03/2025 (Dr. Alexis Marrero): Patient is in detox bed search 3:51 PM 06/03/2025 (Dr. Alexis Marrero): Patient we will be signed out to incoming provider, no beds for him today but they we will continue looking for placement for him tomorrow Reevaluation #3: I assumed care of this patient this morning. The patient is a 40-year-old male with a history of multiple chronic medical problems including Guillain-Pittston syndrome and type 2 diabetes who presented to the hospital 2 days ago requesting alcohol detox When he arrived 2 days ago his alcohol level was negative. He has been seen by the care team for consideration of placement in a detox facility. He was not felt to be suicidal and he did not seem to require inpatient psychiatric hospitalization. Additionally he was not found to have any definite acute medical issue requiring hospitalization. He has some discoloration to the left 3rd and 4th toes. He had a CT scan of the foot done that showed no signs of osteomyelitis. additionally I obtained records from [facility] indicating that he had presented to [facility] quite intoxicated on June 01 and had a negative medical workup and was discharged from [facility] Emergency room on June 02, the same day he presented here. The patient was also complaining of chest pain that he reports was the result of some chest compressions that has been administered to him when he was very intoxicated. He says that he has had ongoing chest discomfort since then. The patient is wheelchair-bound in his limits which detox facilities would consider taking him as a patient. [facility] was a possibility. However before any final decision about a disposition could be made the patient announced that he no longer wished to stay in the emergency department. He was not suicidal and there did not seem to be any grounds to hold him against his will. Before I was able to prepare discharge papers for him he had wheeled himself out of the emergency department.. Medications Administered Discontinued Medications Generic Name Dose Route Start Last Admin Trade Name Freq PRN Reason Stop Dose Admin Acetaminophen 975 mg 06/03/25 12:27 06/03/25 13:10 Acetaminophen 325 Mg Tablet PO 06/03/25 12:28 975 mg ONCE ONE Administration Acetaminophen 975 mg 06/03/25 17:37 06/03/25 17:52 Acetaminophen 325 Mg Tablet PO 06/03/25 17:38 975 mg ONCE ONE Administration Doxycycline Monohydrate 100 mg 06/02/25 23:18 06/02/25 23:53 Doxycycline Monohydrate 100 Mg Capsule PO 06/02/25 23:19 100 mg ONCE ONE Administration Hydroxyzine HCl 50 mg 06/04/25 01:15 06/04/25 07:35 Hydroxyzine Hcl 50 Mg Tablet PO 50 mg TID CHERISE Administration Iohexol 85 ml 06/02/25 22:09 06/02/25 22:09 Iohexol 350 Mg/Ml 100 Ml Infus..Btl IV 06/02/25 22:10 85 ml ONCE ONE Administration Ketorolac Tromethamine 15 mg 06/02/25 20:38 06/02/25 21:05 Ketorolac Tromethamine 15 Mg/Ml Vial IVPUSH 06/02/25 20:39 15 mg ONCE ONE Administration Ketorolac Tromethamine 15 mg 06/03/25 06:19 06/03/25 06:43 Ketorolac Tromethamine 15 Mg/Ml Vial IVPUSH 06/03/25 06:20 15 mg ONCE ONE Administration Ketorolac Tromethamine 15 mg 06/04/25 00:25 06/04/25 00:33 Ketorolac Tromethamine 15 Mg/Ml Vial IM 06/04/25 00:26 15 mg ONCE ONE Administration Lorazepam 2 mg 06/02/25 20:34 06/02/25 21:06 Lorazepam 1 Mg Tablet PO 06/02/25 20:35 2 mg ONCE ONE Administration Lorazepam 2 mg 06/03/25 06:19 06/03/25 06:41 Lorazepam 1 Mg Tablet PO 06/03/25 06:20 2 mg ONCE ONE Administration Lorazepam 1 mg 06/03/25 17:43 06/03/25 17:53 Lorazepam 1 Mg Tablet PO 06/03/25 17:44 1 mg ONCE ONE Administration Lorazepam 2 mg 06/04/25 08:50 06/04/25 08:55 Lorazepam 1 Mg Tablet PO 06/04/25 08:51 2 mg ONCE ONE Administration Methocarbamol 1,500 mg 06/02/25 21:40 06/02/25 22:42 Methocarbamol 750 Mg Tablet PO 06/02/25 21:41 1,500 mg ONCE ONE Administration Methocarbamol 1,000 mg 06/03/25 06:19 06/03/25 06:42 Methocarbamol 500 Mg Tablet PO 06/03/25 06:20 1,000 mg ONCE ONE Administration Omeprazole 40 mg 06/04/25 06:30 06/04/25 05:50 Omeprazole 40 Mg Capsule. PO 40 mg BID@5727,8045 [facility] Administration Pregabalin 225 mg 06/04/25 01:15 06/04/25 07:35 Pregabalin 75 Mg Capsule PO 225 mg BID CHERISE Administration Medical Decision Making Medical Decision Making MDM Narrative: 40-year-old male with hx of Guillian Pittston syndrome wheelchair-bound, peripheral vascular disease status post right BKA, peripheral neuropathy, sacral decubitus ulcer, type 2 [id number]-jejlujlvg diabetes mellitus, hypertension, alcohol use disorder, prior AKA and ETOH withdrawal, mood disorder with history of SI, right hip osteoarthritis status post replacement presents requesting detox. Patient states he consumes a L of vodka on a daily basis, his last drink was 2 days ago. He is here requesting detox. Patient also states while at the homeless assisted, someone accidentally ?performed chest compressions and ?. He now has diffuse anterior chest wall pain. He states he was assessed at [facility] and had a negative assessment. Patient also complains of osteomyelitis of the left foot, but he ran out of his antibiotics. Denies fever. Problem: Vascular disease, neuropathy, diabetes, polysubstance abuse, alcohol use disorder, housing and security History: Per patient I have considered the following differential diagnoses: Osteomyelitis, cellulitis, purulent cellulitis, rib fracture, chest wall strain, alcohol intoxication, drug intoxication, need for detox Plan: Patient would like detox, in addition to screening labs we will add on drug screen and ethanol, placing a consult for the recovery team. In regard to the chest wall pain, adding a chest x-ray giving Toradol and methocarbamol. The patient is actively asking for narcotics, I am declining, at this point to our knowledge he has musculoskeletal strain. On regard to the foot, obtaining a CT scan , we will hold on blood cultures and lactic unless he needs IV antibiotics. Otherwise it appears I will be treating for cellulitis with doxycycline. I have independently reviewed the following tests: Labs: Leukocytosis with left shift, not anemic, no electrolyte abnormality noted, ethanol less than 10, U tox positive for opiates, barbiturates and marijuana Chest x-ray: Findings: Low lung volume, lungs are otherwise clear. Heart size is normal. No acute fracture. IMPRESSION: 1. Low lung volume, otherwise unremarkable. CT left foot:IMPRESSION: 1. Moderate osteopenia. 2. Exuberant heterotopic bone formation posterior superior aspect of the calcaneus. 3. Prior amputation of the 2nd digit through the proximal phalanx distal metaphysis. 4. Prior amputation of the 1st digit through the distal metaphysis of the proximal phalanx 5. No acute osseous injury. Differential Diagnosis Differential Diagnoses: The differential diagnosis associated with the presentation includes See medical decision-making Admission/Observation Consideration of admission/observation: Escalation of care including admission/observation considered Not applicable Consult Healthcare Provider Management of the patient was discussed with: Behavioral Health Provider etiquette coach Lab Data MDM Lab Attestation statement: I reviewed the patient's lab results. 06/02/25 19:57 06/02/25 19:57 Labs: Lab Results 06/02/25 06/02/25 Range/Units 19:57 20:00 WBC 13.8 H (4.8-10.8) X10*3/uL RBC 4.94 (4.60-5.80) X10*6/uL Hgb 12.7 L (14.0-18.0) g/dl Hct 39.6 L (42.0-52.0) % MCV 80.2 (80.0-98.0) fL MCH 25.7 L (27.0-33.0) pg MCHC 32.1 (31.0-36.0) g/dl RDW 15.4 (11.0-16.0) % Plt Count 211 (160-400) X10*3/uL MPV 11.2 (9.4-12.4) fL Immature Gran % (Auto) 0.5 H (0.0-0.4) % Neut % (Auto) 87.8 H (45-73) % Lymph % (Auto) 6.2 L (20-40) % Waller % (Auto) 4.5 (2-11) % Eos % (Auto) 0.7 (0-4) % Baso % (Auto) 0.3 (0-2) % Lymph # (Auto) 0.9 L (1.2-4.9) X10*3/uL Waller # (Auto) 0.6 (0.1-1.2) X10*3/uL Eos # (Auto) 0.1 (0.0-0.4) X10*3/uL Baso # (Auto) 0.0 (0.0-0.2) X10*3/uL Abs Immat Gran (auto) 0.07 H (0.00-0.03) X10*3/uL Absolute Neuts (auto) 12.1 H (2.0-8.3) x10*3/uL Absolute Nucleated RBC 0.000 (0.0-0.012) X10*3/uL Nucleated RBC % (auto) 0.0 (0.0-0.2) /100WBC Sodium 140 (135-145) mmol/L Potassium 4.3 (3.3-5.1) mmol/L Chloride 104 (96-108) mmol/L Carbon Dioxide 26 (22-29) mmol/L Anion Gap 14 (12-20) BUN 18 H (9-16) mg/dL Creatinine 0.66 (0.5-1.4) mg/dL Estim Creat Clear Calc 199.5 Estimated GFR > 60 Random Glucose 153 H (60-115) mg/dL Calcium 9.2 (8.4-10.2) mg/dL Total Bilirubin 0.6 (0.0-1.0) mg/dL AST 41 H (5-37) U/L ALT 38 (0-40) U/L Alkaline Phosphatase 95 (39-117) U/L Total Protein 7.4 (6.5-8.0) g/dL Albumin 4.8 (3.5-5.0) g/dL Urine Color Yellow Urine Appearance Clear Urine pH 6.0 (5.0-9.0) Ur Specific [place] 1.025 (1.005-1.025) Urine Protein Trace (Neg-Trace) mg/dL Urine Glucose (UA) Negative (Negative) mg/dL Urine Ketones Negative (Negative) mg/dL Urine Blood Negative (Negative) Urine Nitrite Negative (Negative) Ur Leukocyte Esterase Negative (Negative) Urine RBC 0-2 (0-2) /HPF Urine WBC 0-5 (0-5) /HPF Ur Squamous Epith Cells 0-2 (0-2) /HPF Urine Bacteria None Seen (None Seen) Hyaline Casts 0-2 (0-2) /LPF Urine Opiates Screen POSITIVE H (Not Detect) Ur Buprenorphine Scrn Not Detected (Not Detect) ng/mL Ur Oxycodone Screen Not Detected (Not Detect) ng/mL Urine Methadone Screen Not Detected (Not Detect) ng/mL Urine Fentanyl Screen Not Detected (Not Detect) Ur Barbiturates Screen POSITIVE H (Not Detect) Ur Phencyclidine Scrn Not Detected (Not Detect) Ur Amphetamines Screen Not Detected (Not Detect) U Benzodiazepines Scrn Not Detected (Not Detect) Urine Cocaine Screen Not Detected (Not Detect) U Marijuana (THC) Screen POSITIVE H (Not Detect) Ethyl Alcohol < 10 mg/dL Radiology Impression Discussion of test interpretation with radiology: I have reviewed the radiologist's reading. Discharge Plan Discharge Clinical Impression: Alcohol use disorder Patient Disposition: Home, Self-Care Additional Instructions: Please work on getting a primary care doctor. You has been given the contact information for some local primary care practices. If you feel significantly worse please return to the emergency room for re-evaluation. Prescriptions: No Action bisacodyl [Dulcolax (bisacodyl)] 5 mg tablet,delayed release (DR/EC) 20 mg PO ONCE 1 Days Qty: 4 0RF Rx Instructions: the day before colonoscopy take 2 pills at 12pm and 2 pills at 5pm with plenty of water polyethylene glycol 3350 [Miralax] 17 gram/dose powder 238 g PO ONCE 1 Days Qty: 238 0RF Rx Instructions: THE DAY BEFORE your procedure mix entire bottle with 64 ounces of Gatorade- no red, blue or purple. AT 5PM Start drinking 1 cup every 15minutes until half is gone. Continue drinking plenty of clear liquids. AT 10PM Finish drinking remaining prep. quetiapine 300 mg tablet 300 mg PO BEDTIME sertraline 100 mg tablet 150 mg PO DAILY hydroxyzine HCl 50 mg tablet 50 mg PO TID omeprazole 40 mg capsule,delayed release(DR/EC) 40 mg PO BID@0630,1630 pregabalin 225 mg capsule 225 mg PO BID loperamide [Anti-Diarrheal (loperamide)] 2 mg capsule 2 mg PO Q6H PRN (Reason: diarrhea) Qty: 30 0RF daptomycin 500 mg recon soln 500 mg IV DAILY ondansetron 4 mg tablet,disintegrating 4 mg PO Q8H PRN (Reason: nausea and vomiting) Qty: 20 0RF Referrals: [facility] [Provider Group] [facility] [Provider Group] [facility] Primary Care, [facility] [Provider Group, Primary Care] Interventions: ED Discharge Assessment Last Done: 06/04/25 13:30 Discharge Date/Time: 06/04/25 13:31 Print Language: Ukrainian
[2025-06-02] MEDS: iohexoL 350 MG/ML 100 ML INFUS..BTL 85 ML IV (22:09)
[2025-06-03 06:44] VITALS: BP 136/88; PULSE 96; RESP 18; O2SAT 96
--- NOTE | 2025-06-03 07:35 | PC.NURSE ---
This Rn assumed care of patient @ 0700 Patient A&O x 3 CIWA 0 Patient requested some sherbert and Welsh ice along with his breakfast On conveyor monitor sinus tach 106 IV 20 LAC Patient awaiting to be seen by CARE Team
[2025-06-03 08:44] VITALS: BP 136/88; PULSE 93; RESP 16; TEMP 36.6; O2SAT 97
--- NOTE | 2025-06-03 09:58 | MHC.RECOVRN ---
Pt requesting ATS bed search . Referrals to be sent to ATS facilities per pt request.
[2025-06-03 14:26] VITALS: BP 131/70; PULSE 91; RESP 16; TEMP 36.6; O2SAT 97
--- NOTE | 2025-06-03 14:37 | MHC.RECOVRN ---
ATS REFERRALS SENT TO VARIOUS FACILITIES FOR REVIEW - [facility] DECLINED PT D/T [facility] - [facility] - NO CAPACITY TODAY - [facility] - REFERRAL HAS BEEN MADE & PT IS ON A WAIT LIST - [facility] - DOES NOT ACCEPT MEDICAID/ MEDICARE - [facility] - NO BEDS AVAILABLE - [facility] - REQUIRES PTS ARE INDEPENDENT IN TERMS OF MOBILITY DUE TO LOW STAFFING /UNABLE TO PLACE PT ON 1:1 - [facility] - NO BED AVAILABILITY - [facility] - NO ABLE TO ACCOMMODATE WHEELCHAIR BOUND PT PROVIDER MADE AWARE.
--- NOTE | 2025-06-03 14:56 | PC.NURSE ---
Patient incontinent of stool Patient cleaned and provided new linens When cleaning patient open area noted on coccyx Wound on coccyx measured 1cm x 1cm, mild drainage noted Wet to dry dressing applied and covered with a DCD. Provider notified
[2025-06-03 20:42] VITALS: BP 170/101; PULSE 90; RESP 18; TEMP 37.1; O2SAT 93
--- NOTE | 2025-06-03 23:04 | PC.NURSE ---
pt sleeping. skin pwd, resp even and non labored, appears comfortable at this time
--- NOTE | 2025-06-04 00:04 | PC.NURSE ---
Took over care from TIMO Edgar at 23:00 pt sleeping no sign of distress.
[2025-06-04 00:27] VITALS: BP 149/98; PULSE 89; RESP 16; TEMP 36.7; O2SAT 95
--- NOTE | 2025-06-04 00:37 | PC.NURSE ---
pt medicated per mar for pain.
--- NOTE | 2025-06-04 00:44 | PC.NURSE ---
med rec completed. notified provider.
--- NOTE | 2025-06-04 05:53 | PC.NURSE ---
pt medicated per mar.
--- NOTE | 2025-06-04 06:51 | PC.NURSE ---
bedside report given to TIMO Owens.
[2025-06-04 07:28] VITALS: BP 159/110; PULSE 102; RESP 18; TEMP 36.9; O2SAT 96
--- NOTE | 2025-06-04 07:40 | PC.NURSE ---
patient a&ox3, pt c/o etoh withdrawal- states he feels a sense of doom and feels shakey/anxious- ciwa score 7. pt medicated with home medications as ordered, pt interested in phenobarb protocol as he states he has had it in the past. pt vitals are mildly elevated- provider is aware and was told pt was interested in phenobarb. pt presently denying pain. call sanchez within reach, plan of care ongoing
--- NOTE | 2025-06-04 11:33 | ECG_ITS ---
Test Reason : chest pain Blood Pressure : */* mmHG Vent. Rate : 97 BPM Atrial Rate : 97 BPM P-R Int : 146 ms QRS Dur : 80 ms QT Int : 338 ms P-R-T Axes : 29 -13 28 degrees QTcB Int : 429 ms Normal sinus rhythm Cannot rule out Anterior infarct (cited on or before 02-Nov-2020) Abnormal ECG When compared with ECG of 02-Jun-2025 19:20, No significant change was found Referred By: Marcelo Santana Electronically Signed By: Renny Calle
--- NOTE | 2025-06-04 11:45 | PC.NURSE ---
patient is now complaining of chest pain that hes had for a long time, repeat ekg being performed, provider notified, pt also stating he has a wound on his buttocks, foam dressing placed on wound, picture obtained and sent to provider to add to chart
--- NOTE | 2025-06-04 11:47 | MHC.CARE ---
Patient's information faxed to [facility] for possible detox admission. They are at capacity today but will review and reach out to start intake process if appropriate.
--- NOTE | 2025-06-04 13:29 | PC.NURSE ---
pt refusing to stay for additional help for detox. pt got dressed and is leaving- refusing to take discharge paperwork
[2025-06-04 13:30] VITALS: BP 159/110; PULSE 102; RESP 18; TEMP 36.9; O2SAT 96
== END 2025-06-04 13:31 | disposition home or self-care (01) ==
PROVIDERS: Emergency Provider Emergency Medicine
DX: F10.239 Alcohol dependence with withdrawal, unspecified (principal); R07.89 Other chest pain; M86.172 Other acute osteomyelitis, left ankle and foot; E11.9 Type 2 diabetes mellitus without complications; I10 Essential (primary) hypertension; Z79.899 Other long term (current) drug therapy; Z79.84 Long term (current) use of oral hypoglycemic drugs; Z51.81 Encounter for therapeutic drug level monitoring; Z91.51 Personal history of suicidal behavior; F17.210 Nicotine dependence, cigarettes, uncomplicated
CPT/HCPCS: 36415; 71045; 73701; 80053; 80307; 81001; 85025; 93005; 96372; 96374; 96376; 99285; J1885; Q9967

== ENCOUNTER → 2025-06-02 19:07 | Outpatient (BNV) | payer MEDICARE, MEDICAID, SELFPAY | PROVIDERS: Emergency Provider Emergency Medicine; Visit Provider Internal Medicine Cardiovascular Disease | DX: R94.31 Abnormal electrocardiogram [ECG] [EKG] (principal); R07.89 Other chest pain | CPT/HCPCS: 93010 ==

== ENCOUNTER → 2025-06-02 20:38 | Outpatient (BNV) | payer MEDICARE, MEDICAID, SELFPAY | PROVIDERS: Emergency Provider Emergency Medicine; Visit Provider Student in an Organized Health Care Education/Training Program | DX: R91.8 Other nonspecific abnormal finding of lung field (principal) | CPT/HCPCS: 71045 ==

== ENCOUNTER → 2025-06-04 11:33 | Outpatient (BNV) | payer MEDICARE, MEDICAID, SELFPAY | PROVIDERS: Emergency Provider Emergency Medicine; Visit Provider Internal Medicine Cardiovascular Disease | DX: R94.31 Abnormal electrocardiogram [ECG] [EKG] (principal); R07.9 Chest pain, unspecified | CPT/HCPCS: 93010 ==

== ENCOUNTER 2025-07-15 12:19 | Emergency (ER) | payer MEDICARE, MEDICAID, SELFPAY ==
--- NOTE | ~2025-07-15 | CT_ITS ---
CLINICAL HISTORY: R abddominal trauma, tender. CT abdomen and pelvis with contrast Comparison: CT/REG/SR - CT ABDOMEN PELVIS WO IV CON - 04/21/25 12:45 EDT Findings: No consolidation or effusion. Cholelithiasis. The liver and spleen are homogeneous in attenuation. Moreover, the liver demonstrates a microlobulated contour with hypertrophy of the caudate lobe. The left and right kidney demonstrate symmetric corticomedullary enhancement. The left adrenal medial limb nodule, 1.7 x 2.2 cm, axial image number 32 of 107 series 13. The right adrenal is within normal limits. The pancreas is within normal limits. No bowel obstruction, pneumoperitoneum, or pneumatosis. Diverticulosis. The appendix is not grossly identified. The prostate is within normal limits. Prior right total hip arthroplasty. Moderate osteopenia. Wedge compression fractures of the T12, T11 and T10 vertebral bodies with less than 10% vertebral body height loss. Sacral dermal thickening/scarring. IMPRESSION: 1. Left adrenal medial limb nodule, measuring 1.7 x 2.2 cm; probable adrenal adenoma. 2. Liver with microlobulated contour and caudate lobe hypertrophy, suggestive of cirrhosis. 3. Cholelithiasis. 4. Diverticulosis. 5. No acute intraabdominal or pelvic findings. This document has been electronically signed by: Johnnie Mejia MD on 07/15/2025 19:23:09
--- NOTE | ~2025-07-15 | CT_ITS ---
CLINICAL HISTORY: R chest wall trauma CT chest with contrast Comparison: CT/[place]/SR - CT CHEST WITH IV CONTRAST - 02/12/25 15:31 EDT Findings: The heart is normal size. The visualized thyroid and mediastinum are unremarkable. The lungs are clear. The liver demonstrates a microlobulated contour with hypertrophy of the caudate lobe. Cholelithiasis. Right anterior 2nd, 3rd, 4th, 5th, 6, 7th rib fracture with small amount of callus formation. Left anterior 2nd, 3rd, 4th, 5th, 7th rib fractures with small amount of callus formation. Mild osteopenia. Diverticulosis. IMPRESSION: 1. Multiple right and left anterior rib subacute fractures with callus formation, as described above. 2. Liver with microlobulated contour and caudate lobe hypertrophy, suggestive of cirrhosis. 3. Cholelithiasis. 4. Diverticulosis. 5. Mild osteopenia. This document has been electronically signed by: Johnnie Mejia MD on 07/15/2025 19:23:50
[2025-07-15 13:10] VITALS: BP 159/76; PULSE 75; RESP 18; TEMP 36.7; O2SAT 97; BMI 34.7
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
[2025-07-15 14:21] LABS: MANUAL DIFF FLAG NO
[2025-07-15 14:23] LABS: Hematocrit 44.2 % (42.0-52.0); Hemoglobin 14.6 g/dl (14.0-18.0); Imm Gran Abs Auto 0.02 X10*3/uL (0.00-0.03); Imm Gran Pct Auto 0.3 % (0.0-0.4); Lymphocytes Absolute Auto 1.5 X10*3/uL (1.2-4.9); Mean Corpuscular HGB Conc 33.0 g/dl (31.0-36.0); Mean Corpuscular Hemoglobin 25.9 pg (27.0-33.0); Mean Corpuscular Volume 78.5 fL (80.0-98.0); NRBC Abs Auto 0.000 X10*3/uL (0.0-0.012); NRBC Pct Auto 0.0 /100WBC (0.0-0.2); Platelet Count 239 X10*3/uL (160-400); Red Blood Count 5.63 X10*6/uL (4.60-5.80); White Blood Count 7.0 X10*3/uL (4.8-10.8)
[2025-07-15 14:28] LABS: INTERNATIONAL NORM RATIO 1.1 (0.9-1.1); Prothrombin Time 13.7 SEC (11.2-13.5)
[2025-07-15 14:36] LABS: Alanine Aminotransferase 41 U/L (0-40); Albumin Level 4.6 g/dL (3.5-5.0); Alkaline Phosphatase 141 U/L (39-117); Anion Gap 15 (12-20); Aspartate Amino Transferase 37 U/L (5-37); Blood Urea Nitrogen 10 mg/dL (9-16); Calcium 9.5 mg/dL (8.4-10.2); Carbon Dioxide 21 mmol/L (22-29); Chloride 108 mmol/L (96-108); Creatinine Clr Calc Pharmacy 199.7; Estimated Glomerular Filt Rate > 60; Magnesium 1.8 mg/dL (1.6-2.6); Potassium 4.2 mmol/L (3.3-5.1); Sodium 140 mmol/L (135-145); Total Protein 7.6 g/dL (6.5-8.0)
[2025-07-15 16:12] VITALS: BP 138/94; PULSE 87; RESP 18; O2SAT 97
--- OUTSIDE RECORDS SUMMARY | 2025-07-15 16:27 | XMS_ITS | Clinical Summary ---
Author Organization Formerly [facility] Address [address] [place] [id number] Care Team Providers Care Hide Tanner Name Role Phone Rosa Sepulveda NP Primary Care Provider +1- [phone] Allergies Active Allergy Reactions Criticality Noted Date [...] of 3 - 19+ 3-dose series) 2002 Influenza Vaccine 03/23/2025 COVID-19 Vaccine (1 - 2023-2 5 season) 2025 HPV Vaccines (No Doses Required) Completed Pneumococcal Vaccine: Pediat jesse (0-5 Years) and At-Risk Patients (6 to 49 Years) Aged Out No longer eligible b ased on patient's age to complete this topic Insurance MEDICARE PART A & B [place]ICA[place] OUT OF [place] [facility]ives * Full Code (Latest Code Status on File) Date Activated Date Inactivated Comments 06/19/2019 11:45 AM 07/11/2019 11:50 AM Care Teams Hide Tanner Relationship Specialty Start Date End Date Rosa Sepulveda NP [address] [place] [address] PCP - General 05/09/19
--- OUTSIDE RECORDS SUMMARY | 2025-07-15 16:27 | XMS_ITS | Encounter Summary ---
Author Organization [facility] Address [address] [place] [address] Care Team Providers Care Automatic Developer Name Role Phone Rosa Sepulveda NP Primary Care Provider [phone]- [phone] Encounter Details Date Type Department Care Team ([facility] st Contact Info) Description 07/23/2020 Scanned Document [facility] [address] [place] [id number] David Corrales MD [address] [place] [address] Social History Tobacco Use Types Packs/Day Years [...] on filedocumented in this encounter Care Teams Automatic Developer Relationship Specialty Start Date End Date Rosa Sepulveda NP [address] [place] [address] PCP - General 05/09/19 documented as of this encounter
--- OUTSIDE RECORDS SUMMARY | 2025-07-15 16:27 | XMS_ITS | Clinical Summary ---
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 Unable to assess 06/01/2025 Paying for Meds [...] 06/01/2025 6:42 AM EDT BASIC METABOLIC PANEL (BMP) STAT 06/01/2025 6:42 AM EDT CBC AND DIFFERENTIAL STAT 06/01/2025 6:42 AM EDT from Last 3 Months Results * XR FOOT 3 OR MORE VIEWS (LEFT) (06/02/2025 6:59 AM EDT) MGB IMG NUCLEAR CARDIOLOGY TECHNOLOGIST COMMENT Erosive changes involving the third digit proximal phalanx with widening of the joint may represent septic arthritis. Further imaging with MRI recommended. [facility] Anatomical Region Laterality Modality Foot Left Computed Radiogr aphy 06/02/2025 7:20 AM EDT Impressions 06/02/2025 7:47 AM EDT Erosive changes involving the third digit proximal phalanx with widening of the joint may represent septic arthritis. Further imaging with MRI recommended. A clinically significant result was initiated on 06/02/2025 7:47 AM, Message ID [id number]. ATTESTATION: Abimbola Frausto as teaching physician, have [...] was initiated on 06/02/2025 7:47 AM,Message ID [id number]. ATTESTATION: Abimbola Frausto as teaching physician, have reviewed theimages for this case and if necessary edited the report originally createdby Gina Parkinson. us Jaiden Govea MD IMG XR LOWER EXTREMITY Final Res ult * POCT Glucose (06/02/2025 4:11 AM EDT) 06/02/2025 4:11 AM EDT Jaiden Govea MD LAB POCT ENTER/EDIT ORDERABLES F inal Result * Troponin (06/01/2025 2:30 PM EDT) Only the most recent of2 resultswithin the time period is included. Troponin-T, HS Gen5 14 0 - 14 ng/L [facility] Blood 06/01/2025 2:30 PM EDT 06/01/2025 2:37 PM EDT Jaiden Govea MD LAB BLOOD BKR ORDERABLES Final R esult [address] [address] * XR CHEST 1 VIEW (06/01/2025 2:25 [...] clinician's provided indication for this examination in [facility]:Pain; Wide mediastinum on AP, COMPARISON: XR [...] clinician's provided indication for this examination in [facility]: * Mental status change, unknown cause [...] of the cervical spine. Jaiden Govea MD [place] [facility] XSPECIALTY ORDERABLES Fin al Result * [...] clinician's provided indication for this examination in [facility]: * Mental status change, unknown cause [...] clinician's provided indication for this examination in [facility]: *Mental status change, unknown cause TECHNIQUE: [...] clinician's provided indication for this examination in [facility]: Respiratory failure COMPARISON: None FINDINGS: Devices/Tubes/Lines: None. Lungs: There are low lung volumes with mild prominence of interstitium likely related to technique. No definite consolidation. Pleura: No pleural effusion or pneumothorax. Heart/Mediastinum: Widening of the cardiomediastinal silhouette Bones/Soft Tissues: No significant abnormality. Procedure Note Pratima Garcia MD - 06/01/2025 XR CHEST PORTABLE Referring clinician's provided indication for this examination in [facility]:Respiratory failure COMPARISON: None FINDINGS: Devices/Tubes/Lines: None. [...] Glucose, POCT 171(H) 70 - 100 mg/dL [facility] 06/01/2025 6:49 AM EDT 06/01/2025 6:54 AM EDT us Jaiden Govea MD POINT OF CARE TEST ORDERABLES Fi nal Result [address] [address] * ECG 12-LEAD (06/01/2025 6:48 AM EDT) Ventricular Rate EKG/MIN 98 BPM [facility] Atrial Rate 98 BPM [facility] [place] Interval 158 ms [facility] QRS Duration 84 ms [facility] QT Interval 348 ms [facility] QTC Interval 444 ms [facility] P [place] 52 degrees [facility] R Wave [place] -14 degrees [facility] T Wave [place] 37 degrees [facility] 06/01/2025 6:48 AM EDT [...] 6:42 AM EDT) ETHANOL 419(H) <10 mg/dL [facility] Blood 06/01/2025 6:42 AM EDT 06/01/2025 7:00 AM EDT us Jaiden Govea MD LAB BLOOD BKR ORDERABLES Final R esult Performing Organization Address City/[facility]/ZIP Co de Phone Number [address] [address] * (ABNORMAL) LFTs (hepatic panel) (06/01/2025 6:42 AM EDT) ALKALINE PHOSPHATASE 120(H) 39 - 117 U/L [facility] TOTAL BILIRUBIN 0.5 0.0 - 1.2 mg/dL [facility] DIRECT BILIRUBIN 0.1 0.0 - 0.2 mg/dL [facility] Bilirubin (Indirect) NOT CALCULATED 0 - 1.5 mg/dL [facility] AST 45(H) 0 - 37 U/L [facility] ALT 38 0 - 40 U/L [facility] TOTAL PROTEIN 8.1(H) 6.5 - 8.0 g/dL [facility] ALBUMIN 4.8 3.9 - 4.8 g/dL [facility] GLOBULIN 3.3 1 - 4.8 g/dL [facility] A/G Ratio 1.45 1.00 - 4.80 RATIO [facility] Blood 06/01/2025 6:42 AM EDT 06/01/2025 7:00 AM EDT us Jaiden Govea MD LAB BLOOD BKR ORDERABLES Final R esult [address] [address] * (ABNORMAL) PT-INR (06/01/2025 6:42 AM EDT) PT 14.0(H) 10.2 - 12.9 sec [facility] INR 1.1 0.9 - 1.1 [facility] Comment:Therapeutic range fo r oral Vitamin K antagonists: 2.0-3.5 Blood 06/01/2025 6:42 AM EDT 06/01/2025 7:00 AM EDT us Jaiden Govea MD LAB BLOOD BKR ORDERABLES Final R esult [facility] [address] [place], [place] [id number] * (ABNORMAL) CBC and differential (06/01/2025 6:42 AM EDT) WBC 12.83(H) 4.00 - 11.00 K/uL [facility] RBC 5.96(H) 4.50 - 5.90 M/uL [facility] HGB 15.2 13.5 - 17.5 g/dL [facility] HCT 48.0 41.0 - 53.0 % [facility] PLT 325 150 - 450 K/uL [facility] MCV 80.5 80.0 - 100.0 fL [facility] MCH 25.5(L) 27.0 - 31.0 pg [facility] MCHC 31.7(L) 32.0 - 36.0 g/dL [facility] RDW 15.0(H) 11.5 - 14.5 % [facility] MPV 10.7 8.4 - 12.0 fL [facility] NRBC 0.00 0.00 /100 WBCs [facility] ABSOLUTE NRBC 0.00 0.00 K/uL [facility] DIFF METHOD Manual [facility] TOTAL CELLS COUNTED 100 [facility] NEUTS 56.0 48.0 - 76.0 % [facility] BANDS 3.0 0 - 10 % [facility] LYMPHS 33.0 18.0 - 41.0 % [facility] Comment:Few atypical Lymphs seen. MONOS 3.0(L) 4.0 - 11.0 % [facility] EOS 1.0 0.0 - 5.0 % [facility] BASOS 2.0(H) 0.0 - 1.5 % [facility] MYELOS 1.0(H) 0 % [facility] METAS 1.0(H) 0 % [facility] ABSOLUTE NEUTS 7.57 1.92 - 7.60 K/uL [facility] ABSOLUTE LYMPHS 4.23(H) 0.72 - 4.10 K/uL [facility] ABSOLUTE MONOS 0.38 0.16 - 1.10 K/uL [facility] ABSOLUTE EOS 0.13 0.00 - 0.50 K/uL [facility] ABSOLUTE BASOS 0.26(H) 0.00 - 0.15 K/uL [facility] ABSOLUTE MYELOS 0.13 K/uL [facility] ABSOLUTE METAS 0.13 K/uL [facility] Blood 06/01/2025 6:42 AM EDT 06/01/2025 7:00 AM EDT us Jaiden Govea MD LAB BLOOD BKR ORDERABLES Final R esult [address] [address] * Magnesium (06/01/2025 6:42 AM EDT) MAGNESIUM 2.1 1.6 - 2.6 mg/dL [facility] Blood 06/01/2025 6:42 AM EDT 06/01/2025 7:00 AM EDT us Jaiden Govea MD LAB BLOOD BKR ORDERABLES Final R esult [address] [address] * Lipase (06/01/2025 6:42 AM EDT) LIPASE 58 16 - 63 U/L [facility] 06/01/2025 6:42 AM EDT 06/01/2025 7:00 AM EDT us Jaiden Govea MD LAB BLOOD BKR ORDERABLES Final R esult [address] [address] * (ABNORMAL) Venous blood gas (06/01/2025 6:42 AM EDT) pH, Venous 7.25(L) 7.31 - 7.41 [facility] PCO2, Venous 38.80(L) 41.00 - 51.00 mmHg [facility] PO2, Venous 111.40(H) 35.00 - 40.00 mmHg [facility] HCO3, Venous 17(L) 23 - 28 mmol/L [facility] BASE DEFICIT VENOUS 9.7(H) 0.0 - 2.0 mmol/L [facility] SO2, VENOUS 97.10(H) 60.00 - 80.00 % [facility] FO2HB, VENOUS 94.00(H) 71.00 - 74.00 % [facility] Carboxy Hgb 3.10(H) 0 - 1.50 % [facility] MetHgb % 0.10 0 - 1.50 % [facility] Blood 06/01/2025 6:42 AM EDT 06/01/2025 6:59 AM EDT us Jaiden Govea MD LAB BLOOD BKR ORDERABLES Final R esult [address] [address] * (ABNORMAL) Acetaminophen level (06/01/2025 6:42 AM EDT) ACETAMINOPHEN <5.0(L) 15.0 - 30.0 ug/mL [facility] Blood 06/01/2025 6:42 AM EDT 06/01/2025 7:00 AM EDT us Jaiden Govea MD LAB BLOOD BKR ORDERABLES Final R esult [address] [address] * (ABNORMAL) Salicylates (06/01/2025 6:42 AM EDT) SALICYLATES <0.3(L) 2.8 - 19.9 mg/dL [facility] Blood 06/01/2025 6:42 AM EDT 06/01/2025 7:00 AM EDT us Jaiden Govea MD LAB BLOOD BKR ORDERABLES Final R esult Performing Organization Address City/[facility]/ZIP Co de Phone Number [address] [address] * (ABNORMAL) Basic metabolic panel (06/01/2025 6:42 AM EDT) SODIUM 140 133 - 146 mmol/L [facility] CHLORIDE 102 96 - 108 mmol/L [facility] POTASSIUM 3.4 3.3 - 5.1 mmol/L [facility] CO2 18(L) 21 - 35 mmol/L [facility] BUN 13 6 - 19 mg/dL [facility] CREATININE 0.60 0.5 - 1.5 mg/dL [facility] GLUCOSE 177(H) 70 - 99 mg/dL [facility] CALCIUM 9.3 8.4 - 10.3 mg/dL [facility] EGFR >120 >59 mL/min/1.7 3m2 [facility] Comment:Estimated glomerular filtration rate calculated using the CKD-EPI refit equation. ANION GAP 23(H) 10 - 20 mmol/L [facility] Blood 06/01/2025 6:42 AM EDT 06/01/2025 7:00 AM EDT us Jaiden Govea MD LAB BLOOD BKR ORDERABLES Final R esult Performing Organization Address City/[facility] Co de Phone Number [address] [address] from Last 3 Months Insurance MEDICARE PART A & B [facility] MEDICARE PART A & B [facility] MEDIC[facility] PART A & B Member Subscriber Plan / Payer ( fective 2004-Present) Name:Jean Roldan Member ID:[id number] Relation to Subscriber:Self Name:Jean Roldan Subscriber ID:[id number] Payer ID:[id number] Group ID:Not on file Type:Medicare Address: [facility] [employer] [facility] [address] [place], [place] [id number] [place], [place] [address]HEALTH MEDICARE PART A & B Member Subscriber Plan / Payer ( fective 2004-Present) Name:Jean Roldan Member ID:[id number] Relation to Subscriber:Self Name:Jena Roldan Subscriber ID:[id number] Payer ID:[id number] Group ID:Not on file Type:Medicare Address: [facility] [employer] [facility] [address] [place], [place] [address]HEALTH MEDICARE PART A & B [place] MEDICARE PART A & B [facility] & B [facility] Care Teams Merchandising Representative Relationship Specialty Start Date End Date Rosa Sepulveda NP [address] [place] [address] PCP - General Family Medicine 09/13/19 Additional Source Comments The information contained in this document represents components of the legal health record. It is not the complete legal health record.[facility]
--- OUTSIDE RECORDS SUMMARY | 2025-07-15 16:27 | XMS_ITS | Encounter Summary ---
Author Organization [facility] Address [address] [place] [address] Phone Care Team Providers Care Chief Compressor Station Engineer Name Role Phone Rosa Sepulveda PORTFOLIO LEAD Primary Care Provider +1- [phone] Encounter Details Date Type Department Care Team (Late st Contact Info) Description 06/01/2025 Procedure Pass [facility], Ct Scan - [facility] [address] [place] [address] Social History Tobacco Use Types Packs/Day Years [...] 2:31 PM EDT Pat Campo RN * [place] Suicide Severity Rating Scale (Screener/Recent Self-Report) Question [...] 1 Month) No 06/01/2025 2:31 PM EDT [place], E mma, RN 6. Suicidal Behavior (Lifetime) No 5 2:31 PM EDT Pat Campo RN documented as of this encounter Plan of Treatment Not on file documented as of this encounter Visit Diagnoses Not on filedocumented in this encounter Care Teams Chief Compressor Station Engineer Relationship Specialty Start Date End Date Rosa Sepulveda NP [address] [place] [address] PCP - General Family Medicine 09/13/19 documented as of this encounter Additional Source Comments The information contained in this document represents components of the legal health record. It is not the complete legal health record.[facility]
--- OUTSIDE RECORDS SUMMARY | 2025-07-15 16:27 | XMS_ITS | Encounter Summary ---
Author Organization [facility] Address [address] [place] [address] Phone Care Team Providers Care Edi Developer Name Role Phone Rosa Sepulveda WATERSHED PROGRAM MANAGER Primary Care Provider +1- [phone] Encounter Details Date Type Department Care Team (Late st Contact Info) Description 06/01/2025 Procedure Pass [facility], Ct Scan - [facility] [address] [place] [address] Social History Tobacco Use Types Packs/Day Years [...] 2:31 PM EDT Pat Campo RN * [place] Suicide Severity Rating Scale (Screener/Recent Self-Report) Question [...] 1 Month) No 06/01/2025 2:31 PM EDT [place], E mma, RN 6. Suicidal Behavior (Lifetime) No 5 2:31 PM EDT Pat Campo RN documented as of this encounter Plan of Treatment Not on file documented as of this encounter Visit Diagnoses Not on filedocumented in this encounter Care Teams Edi Developer Relationship Specialty Start Date End Date Rosa Sepulveda NP [address] [place] [address] PCP - General Family Medicine 09/13/19 documented as of this encounter Additional Source Comments The information contained in this document represents components of the legal health record. It is not the complete legal health record.[facility]
--- OUTSIDE RECORDS SUMMARY | 2025-07-15 16:27 | XMS_ITS | Encounter Summary ---
Author Organization [facility] Address [address] [place] [address] Care Team Providers Care Shipfitters Supervisor Name Role Phone Rosa Sepulveda PRODUCTION CONTROL PEGBOARD CLERK Primary Care Provider +1- [phone] Encounter Details Date Type Department Care Team (Late st Contact Info) Description 04/11/2020 Scanned Document [facility] Plastic & Reconstructive Surgery [address] [place] [address] David Corrales MD [address] [place] [address] Social History Tobacco Use Types Packs/Day Years [...] on filedocumented in this encounter Care Teams Shipfitters Supervisor Relationship Specialty Start Date End Date Rosa Sepulveda NP [address] [place] [address] PCP - General 05/09/19 documented as of this encounter
--- OUTSIDE RECORDS SUMMARY | 2025-07-15 16:27 | XMS_ITS | Encounter Summary ---
Author Organization [facility] Address [address] [place] [address] Care Team Providers Care Digital Imager Name Role Phone Rosa Sepulveda NP Primary Care Provider +1- [phone] Encounter Details Date Type Department Care Team (Late st Contact Info) Description 07/17/2019 Scanned Document [facility] Plastic & Reconstructive Surgery [address] [place] [phone] David Corrales MD [address] [place] [address] Social History Tobacco Use Types Packs/Day Years [...] documented as of this encounter Care Teams Digital Imager Relationship Specialty Start Date End Date Rosa Sepulveda NP [address] [place] [address] PCP - General 05/09/19 documented as of this encounter
--- OUTSIDE RECORDS SUMMARY | 2025-07-15 16:27 | XMS_ITS | Encounter Summary ---
Author Organization [facility] Address [address] [place] [address] Care Team Providers Care Spiral Spring Winder Name Role Phone Rosa Sepulveda EVENTS AND PROMOTIONS ASSISTANT Primary Care Provider +1- [phone] Encounter Details Date Type Department Care Team (Late st Contact Info) Description 04/11/2020 Scanned Document [facility] Plastic & Reconstructive Surgery [address] [place] [address] David Corrales MD [address] [place] [address] Social History Tobacco Use Types Packs/Day Years [...] on filedocumented in this encounter Care Teams Spiral Spring Winder Relationship Specialty Start Date End Date Rosa Sepulveda NP [address] [place] [address] PCP - General 05/09/19 documented as of this encounter
--- OUTSIDE RECORDS SUMMARY | 2025-07-15 16:27 | XMS_ITS | Clinical Summary ---
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 30 each 02/27/20 25 Active Remeron 15 mg tablet Take 1 tablet (15 mg total) by mouth at bedtime. 05/29/20 25 Active ondansetron (ZOFRAN) 4 mg tablet Take 1 tablet (4 mg total) by mouth every 8 (eight) hours if needed for nausea or vomiting. 03/23/20 25 Active sertraline (ZOLOFT) 100 mg tablet Take 1.5 tablets (150 mg total) by mouth 1 (one) time each day. 05/09/20 25 Active divalproex (DEPAKOTE ER) 250 mg 24 hr tablet Take 1 tablet (250 mg total) by mouth 2 (two) times a day. Active hydrOXYzine HCL (ATARAX) 50 mg tablet Take 1 tablet (50 mg total) by mouth 3 (three) times a day if needed for anxiety. 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 Encounters Date Type Department Care Team Description 06/14/2025 2:54 AM EDT - 06/16/2025 2:57 PM EDT Emergency [facility] Emergency [address] [place] [address] Chauncey Flores MD Deslouches, Joshua, MD Flores, Carlos M, MD Gordon, Ruth, MD Dunbar, Kevin F, MD Reid, Oswald George, MD Dietrich, Brianna, MD [facility] foot of left lower extremity, initial encounter (Primary Dx); Chest wall pain Discharge Disposition: Home or Self Care 06/09/2025 4:15 AM EDT - 06/12/2025 3:05 PM EDT Emergency [facility] Emergency [address] [place] [address] Justine Castillo MD Wyman, Tim, MD Zaidi, MD Clementine Dial Ashley, MD Landry, MD Rayshawn Benavides, Vamshi Foy MD Suicidal ideation (Primary Dx); Rhinovirus infection; Enterovirus infection; Musculoskeletal chest pain Discharge Disposition: Home or Self Care 06/04/2025 5:13 PM EDT - 06/04/2025 10:05 PM EDT Emergency [facility] Emergency [address] [place] [id number] Kenton Panchal MD Anxiety (Primary Dx); Injury of head, initial encounter; Neck pain; Chest wall pain Discharge Disposition: Home or Self Care 05/03/2025 9:34 AM EDT - 05/03/2025 11:23 AM EDT Emergency [facility] Emergency [address] [place] [id number] Kenton Panchal MD Fall, initial encounter (Primary Dx); Contusion of left hip, initial encounter Discharge Disposition: Home or Self Care from Last 3 Months Surgical History Surgery Date Site/Laterality Comments OTHER SURGICAL HISTORY PROCEDURE: HI ANESTHESIA OPEN HIP JOINT PROCEDURE NOS Medical History Medical History Date Comments Anxiety DX:Anxiety PTSD (post-traumatic stress disorder) DX:PTSD (post-traumatic stress disorder) 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) DM (diabetes mellitus) ([facility] V24, [facility] V28) History of right lower extre mity amputation ([facility] V24, [facility] V28) Social History Tobacco Use Types Packs/Day [...] Sign Reading Time Taken Comments Blood Pressure 155/102 06/16/2025 1:46 PM EDT Pulse 91 06/16/2025 1:46 PM EDT Temperature 36.7 C (98.1 F) 06/16/2025 5:54 AM EDT Respiratory Rate 18 06/16/2025 1:46 PM EDT Oxygen Saturation 98% 06/16/2025 1:46 PM EDT Inhaled Oxygen Concentration - - Weight 120 kg (265 lb) 06/14/2025 2:15 AM EDT Height 188 cm (6' 2 ) 06/14/2025 2:15 AM EDT Body Mass Index 34.02 06/14/2025 2:15 AM EDT Plan of Treatment Health Maintenance [...] 49 Years) (2 of 2 - PCV) 12/19/2020 12/20/2019, 08/08/2007 Cholesterol Screening (Lipid Panel) 07/26/2022 HIV Screening 07/26/2022 Hepatitis C Screening 07/26/2022 Medicare Annual Wellness Visit 07/26/2022 Social Influencers of Health Screening 07/26/2022 Diabetes: Annual Urine Albumin-Creatinine Ratio (uACR) 08/02/2022 Diabetes: Blood Sugar Control Test (HGBA1C) 08/02/2022 Depression Screening 08/23/2024 COVID-19 Vaccine ( season) 2025 07/29/2021, 01/16/2021, 12/26/2020 Influenza Vaccine (#1) 2025 09/03/2016, 2006 Diabetes: Annual GFR (Glomerular Filtration Rate) 06/09/2026 06/09/2025, 02/25/2025, 02/24/2025, Additional history exists Hypertension/CHF/CAD Annual BMP Blood Test 06/09/2026 06/09/2025, 02/25/2025, 02/24/2025, Additional history exists RSV Immunization Adult Patients [...] Name Priority Date/Time Associated Diagnosis Comments XR CHEST 2 VIEWS STAT 06/14/2025 4:26 AM EDT POCT GLUCOSE BLOOD Routine 06/12/2025 8: 32 AM EDT POCT GLUCOSE BLOOD Routine 06/11/2025 8: 37 AM EDT POCT GLUCOSE BLOOD Routine 06/10/2025 2: 55 PM EDT XR CHEST 2 VIEWS STAT 06/09/2025 7:47 AM EDT RESPIRATORY VIRUS PANEL MOLECULAR STUDY STAT 06/09/2025 6:37 AM EDT CBC WITH AUTO DIFFERENTIAL STAT 06/09/2025 4:42 AM EDT METHADONE SCREEN, URINE STAT 06/09/2025 4:42 AM EDT PHENCYCLIDINE, URINE STAT 06/09/2025 4:42 AM EDT BUPRENORPHINE SCREEN, URINE STAT 06/09/2025 4:42 AM EDT DRUG ABUSE SCREEN 8A PANEL, URINE STAT 06/09/2025 4:42 AM EDT SALICYLATE LEVEL STAT 06/09/2025 4:42 AM EDT ACETAMINOPHEN LEVEL STAT 06/09/2025 4 :42 AM EDT ETHANOL STAT 06/09/2025 4:42 AM EDT COMPREHENSIVE METABOLIC PANEL STAT 06/09/2025 4:42 AM EDT CBC AND DIFFERENTIAL STAT 06/09/2025 4:[address] HEAD WO CONTRAST STAT 06/04/2025 6 [address] CERVICAL SPINE WO CONTRAST STAT 06/04/2025 6:46 PM EDT XR HIP 2-3 VIEWS LEFT STAT 05/03/2025 10:32 AM EDT from Last 3 Months Results * XR Chest 2 Views (06/14/2025 4:26 AM EDT) Only the most recent of2 resultswithin the time period is included. Anatomical Region Laterality Modality Body Radiographic Cee ging 06/14/2025 8:18 AM EDT Impressions 06/14/2025 8:19 AM EDT Somewhat limited depth of inspiration. No acute pulmonary disease. No change since 06/09/2025. Code 18682 -------- FINAL REPORT -------- Dictated By: Karan Kendrick Dictated Date: 06/14/2025 08:18 ET Assigned Physician: Karan Kendrick Reviewed and Electronically Signed By: Karan Kendrick Signed Date: 06/14/2025 08:19 ET Workstation ID: [id number] Transcribed By: Self Edit Transcribed Date: 06/14/2025 08:18 ET Narrative 06/14/2025 8:19 AM EDT HISTORY: The patient is a 40-year-old male with right-sided chest pain. FINDINGS: PA and lateral radiographs the chest demonstrate suboptimal depth of inspiration, as also seen on the prior study performed 06/09/2025. The bony structures are of normal appearance. The cardiac and mediastinal contours are within normal limits. The lungs and costophrenic angles are clear. Procedure Note Karan Kendrick MD - 06/14/2025 HISTORY: The patient is a 40-year-old male with right-sided chest pain. FINDINGS: PA and lateral radiographs the chest demonstrate suboptimaldepth of inspiration, as also seen on the prior study [id number]/18/2025. The bony structures are of normal appearance. The cardiac andmediastinal contours are within normal limits. The lungs and costophrenicangles are clear. IMPRESSION: Somewhat limited depth of inspiration. No acute pulmonary disease. Nochange since 06/09/2025. Code 48997 -------- FINAL REPORT -------- Dictated By: Karan Kendrick Dictated Date: 06/14/2025 08:18 ET Assigned Physician: Karan Kendrick Reviewed and Electronically Signed By: Karan Kendrick Signed Date: 06/14/2025 08:19 ET Workstation ID: [id number] Transcribed By: Self Edit Transcribed Date: 06/14/2025 08:18 ET Chauncey Flores MD IMG XR PROCEDURES Final Result * (ABNORMAL) POCT Glucose, blood (06/12/2025 8:32 AM EDT) Only the most recent of3 resultswithin the time period is included. [facility] Glucose POCT 123(H) 70 - 100 mg/dL 06/12/2025 8:32 AM EDT [facility] Blood Capillary blood specimen / Unknown 06/12/2025 8:32 AM EDT 06/12/2025 8:33 AM EDT us Vamshi Tabares MD LAB POINT OF CARE TEST DOCKED DEVICE UNSOLICITED RESULTS Final Result [facility] [address] [place] [address], * (ABNORMAL) Respiratory virus panel molecular study (06/09/2025 6:37 AM EDT) [facility] Adenovirus Detection by PCR Not Detected Not Detected LAB MICROBIOLOGY METHOD 06/09/2025 8:04 AM EDT [facility] Influenza A PCR Not Detected Not Detected LAB MICROBIOLOGY METHOD 06/09/2025 8:04 AM EDT [facility] Influenza B PCR Not Detected Not Detected LAB MICROBIOLOGY METHOD 06/09/2025 8:04 AM EDT [facility] Coronavirus 229E Not Detected Not Detected LAB MICROBIOLOGY METHOD 06/09/2025 8:04 AM EDT [facility] Coronavirus HKU1 Not Detected Not Detected LAB MICROBIOLOGY METHOD 06/09/2025 8:04 AM EDT [facility] Coronavirus OC43 Not Detected Not Detected LAB MICROBIOLOGY METHOD 06/09/2025 8:04 AM EDT [facility] Coronavirus NL63 Not Detected Not Detected LAB MICROBIOLOGY METHOD 06/09/2025 8:04 AM EDT [facility] Parainfluenza Virus 1 Not Detected Not Detected LAB MICROBIOLOGY METHOD 06/09/2025 8:04 AM EDT [facility] Parainfluenza Virus 2 Not Detected Not Detected LAB MICROBIOLOGY METHOD 06/09/2025 8:04 AM EDT [facility] Parainfluenza Virus 3 Not Detected Not Detected LAB MICROBIOLOGY METHOD 06/09/2025 8:04 AM EDT [facility] Parainfluenza Virus 4 Not Detected Not Detected LAB MICROBIOLOGY METHOD 06/09/2025 8:04 AM EDT [facility] RSV PCR Not Detected Not Detected LAB MICROBIOLOGY METHOD 06/09/2025 8:04 AM EDT [facility] Human Metapneumovirus A and B Not Detected Not Detected LAB MICROBIOLOGY METHOD 06/09/2025 8:04 AM EDT [facility] Rhinovirus/Entero virus Detected(A ) Not Detected LAB MICROBIOLOGY METHOD 06/09/2025 8:04 AM EDT [facility] Bordetella pertussis Not Detected Not Detected LAB MICROBIOLOGY METHOD 06/09/2025 8:04 AM EDT [facility] Bordetella parapertussis Not Detected Not Detected LAB MICROBIOLOGY METHOD 06/09/2025 8:04 AM EDT [facility] Mycoplasma pneumo by PCR Not Detected Not Detected LAB MICROBIOLOGY METHOD 06/09/2025 8:04 AM EDT [facility] Chlamydia pneumoniae Not Detected Not Detected LAB MICROBIOLOGY METHOD 06/09/2025 8:04 AM EDT [facility] SARS COV-2 Not Detected Not Detected LAB MICROBIOLOGY METHOD 06/09/2025 8:04 AM EDT [facility] Swab Both anterior nares / Unknown Non-blood Collection / Unknown 06/09/2025 6:37 AM EDT 06/09/2025 6:53 AM EDT Narrative [facility] - 06/09/2025 8:04 AM EDT Testing was performed using the [employer] Respiratory Pathogen PCR Assay. All results must be correlated with the clinical findings. Results should not be used as the sole basis for diagnosis. False Negative results may occur from the presence of sequence variants in the region targeted by the assay or the presence of inhibitors. Results may be affected by concurrent antiviral/antimicrobial therapy or levels of organisms that are below the limit of detection. Justine Castillo MD LAB MICROBIOLOGY - GENERAL ORD ERABLES Final Result [facility] [address] [place] [address], * (ABNORMAL) Drug abuse screen 8a panel, urine (06/09/2025 4:42 AM EDT) Amphetamine Screen, Ur Negative Negative LAB CHEMISTRY METHOD 5:19 AM EDT [facility] Comment:Certain OTC medicati ons containing ephedrine, phenylephrine, pseudoephedrine and phenylpropanolamine can cause false positive results. Barbiturate Screen, Ur Positive(A ) Negative LAB CHEMISTRY METHOD 5:19 AM EDT [facility] Benzodiazepine Screen, Ur Positive(A ) Negative LAB CHEMISTRY METHOD 5 5:19 AM EDT [facility] Cocaine Screen, Ur Positive(A ) Negative LAB CHEMISTRY METHOD 5 5:19 AM EDT [facility] Opiate Screen, Ur Negative Negative LAB CHEMISTRY METHOD 5:19 AM EDT [facility] Cannabinoid (THC) Screen, Ur Negative Negative LAB CHEMISTRY METHOD 5:19 AM EDT [facility] Comment:Specimens from patie nts taking pantoprazole sodium (Protonix) have been shown to produce false positive results. Oxycodone Screen, Ur Positive(A ) Negative LAB CHEMISTRY METHOD 5:19 AM EDT [facility] Fentanyl, Ur Negative Negative LAB CHEMISTRY METHOD 5:19 AM [facility] Urine Urine specimen obtained by clean catch procedure / Unknown Non-blood Collection / Unknown 06/09/2025 4:42 AM EDT 06/09/2025 4:47 AM EDT Narrative [facility] - 06/09/2025 5:19 AM EDT Assay cutoffs: Amphetamines 1000 ng/mL Barbiturates 200 ng/mL Benzodiazepines 200 ng/mL Cocaine 300 ng/mL Fentanyl 1 ng/mL Opiates 300 ng/mL Oxycodone 100 ng/mL THC 50 ng/mL Semi-quantitative assay for screening purposes only. Unconfirmed screening result should not be used for non-medical purposes. *ALTERNATE METHOD CONFIRMATION DONE UPON REQUEST ONLY* us Justine Castillo MD LAB URINE ORDERABLES Final Res ult [facility] [address] [place] [address], * Buprenorphine screen, urine (06/09/2025 4:42 AM EDT) [facility] Buprenorphine Screen Urine Negative Negative LAB CHEMISTRY METHOD 06/09/2025 5:19 AM EDT [facility] Urine Urine specimen obtained by clean catch procedure / Unknown Non-blood Collection / Unknown 06/09/2025 4:42 AM EDT 06/09/2025 4:47 AM EDT Narrative [facility] - 06/09/2025 5:19 AM EDT Assay cutoff 5 ng/mL Semi-quantitative assay for screening purposes only. Unconfirmed screening result should not be used for non-medical purposes. *ALTERNATE METHOD CONFIRMATION DONE UPON REQUEST ONLY* Justine Castillo MD LAB URINE ORDERABLES Final Res ult Performing Organization Address [facility]/ZIP Co de Phone Number [facility] [address] [place] [address], [place] [phone] * Methadone, urine (06/09/2025 4:42 AM EDT) Methadone Screen, Urine Negative Negative LAB CHEMISTRY METHOD 06/09/2025 5:19 AM EDT [facility] Comment: Assay cutoff 300 ng/mL Semi-quantitative assay for screening purposes only. Unconfirmed screening result should not be used for non-medical purposes. *ALTERNATE METHOD CONFIRMATION DONE UPON REQUEST ONLY* Urine Urine specimen obtained by clean catch procedure / Unknown Non-blood Collection / Unknown 06/09/2025 4:42 AM EDT 06/09/2025 4:47 AM EDT Justine Castillo MD LAB URINE ORDERABLES Final Res ult Performing Organization Address City/[facility]/ZIP Co de Phone Number [facility] [address] [place] [address], [place] [phone] * (ABNORMAL) CBC auto differential (06/09/2025 4:42 AM EDT) WBC 8.0 4.8 - 10.8 K/[facility] LAB HEMETOLOGY METHOD 06/09/2025 4:56 AM EDT [facility] RBC 4.90 4.50 - 5.50 M/mcL LAB HEMETOLOGY METHOD 06/09/2025 4:56 AM T [facility] Hemoglobin 12.4(L) 13.5 - 17.5 g/dL LAB HEMETOLOGY METHOD 06/09/2025 4:56 AM [facility] Hematocrit 40.0(L) 42.0 - 54.0 % LAB HEMETOLOGY METHOD 06/09/2025 4:56 AM [facility] MCV 81.6 79.0 - 98.0 FL LAB HEMETOLOGY METHOD 06/09/2025 4:56 AM [facility] MCH 25.3(L) 27.0 - 32.0 pcg LAB HEMETOLOGY METHOD 06/09/2025 4:56 AM [facility] MCHC 31.0(L) 32.0 - 37.0 g/dL LAB HEMETOLOGY METHOD 06/09/2025 4:56 AM [facility] RDW 16.3(H) 11.0 - 15.0 % LAB HEMETOLOGY METHOD 06/09/2025 4:56 AM [facility] Platelets 219 130 - 400 K/mcL LAB HEMETOLOGY METHOD 06/09/2025 4:56 AM [facility] MPV 10.5 7.0 - 11.0 FL LAB HEMETOLOGY METHOD 06/09/2025 4:56 AM [facility] NRBC 0.0 <1.0 % LAB HEMETOLOGY METHOD 06/09/2025 4:56 AM [facility] NRBC Absolute 0.00 <0.10 K/mcL LAB HEMETOLOGY METHOD 06/09/2025 4:56 AM [facility] Neutrophils Relative 76.1 % LAB HEMETOLOGY METHOD 06/09[facility]2025 [facility] Lymphocytes Relative 15.3 % LAB HEMETOLOGY METHOD 06/09/2025 4:56 AM [facility] Monocytes Relative 6.6 % LAB HEMETOLOGY METHOD 06/09/2025 4:56 AM [facility] Eosinophils Relative 1.1 % LAB HEMETOLOGY METHOD 06/09/2025 4:56 AM [facility] Basophils Relative 0.4 % LAB HEMETOLOGY METHOD 06/09/2025 4:56 AM [facility] Immature Granulocytes Relative 0.5 % LAB HEMETOLOGY METHOD 06/09/2025 4:56 AM [facility] Neutrophils Absolute 6.11 1.50 - 7.00 K/mcL LAB HEMETOLOGY METHOD 06/09/2025 4:56 AM [facility] Lymphocytes Absolute 1.23 1.00 - 5.00 K/mcL LAB HEMETOLOGY METHOD 06/09/2025 4:56 AM [facility] Monocytes Absolute 0.53 0.20 - 1.00 K/mcL LAB HEMETOLOGY METHOD 06/09/2025 4:56 AM [facility] Eosinophils Absolute 0.09 0.00 - 0.50 K/mcL LAB HEMETOLOGY METHOD 06/09/2025 4:56 AM [facility] Basophils Absolute 0.03 0.00 - 0.20 K/mcL LAB HEMETOLOGY METHOD 06/09/2025 4:56 AM [facility] Immature Granulocytes Absolute 0.04(H) 0.00 - 0.03 K/mcL LAB HEMETOLOGY METHOD 06/09/2025 4:56 AM [facility] Blood Venous blood specimen / Unknown Venipuncture / Unknown 06/09/2025 4:42 AM EDT 06/09/2025 4:48 AM EDT Justine Castillo MD LAB BLOOD ORDERABLES Final Res ult Performing Organization Address City/[facility]/ZIP Co de Phone Number [facility] [address] [place] [address], [place] [phone] * Phencyclidine, urine (06/09/2025 4:42 AM EDT) PCP Scrn, Ur Negative Negative LAB CHEMISTRY METHOD 06/09/2025 5:19 AM EDT [facility] Comment: Assay cutoff 25 ng/mL Semi-quantitative assay for screening purposes only. Unconfirmed screening result should not be used for non-medical purposes. *ALTERNATE METHOD CONFIRMATION DONE UPON REQUEST ONLY* Urine Urine specimen obtained by clean catch procedure / Unknown Non-blood Collection / Unknown 06/09/2025 4:42 AM EDT 06/09/2025 4:47 AM EDT Justien Castillo MD LAB URINE ORDERABLES Final Res ult Performing Organization Address [facility]/ZIP Co de Phone Number [facility] [address] [place] [address], [place] [phone] * Ethanol (06/09/2025 4:42 AM EDT) Ethanol Level <3 0 - 10 mg/dL LAB CHEMISTRY METHOD 06/09/2025 5:32 AM EDT [facility] Blood Venous blood specimen / Unknown Venipuncture / Unknown 06/09/2025 4:42 AM EDT 06/09/2025 4:47 AM EDT us Justine Castillo MD LAB BLOOD ORDERABLES Final Res ult Performing Organization Address City/[facility]/ZIP Co de Phone Number [facility] [address] [place] [address], [place] [phone] * (ABNORMAL) Acetaminophen level (06/09/2025 4:42 AM EDT) Acetaminophen Level <2.0(L) 10.0 - 30.0 mcg/mL LAB CHEMISTRY METHOD 06/09/2025 5:32 AM EDT [facility] Blood Venous blood specimen / Unknown Venipuncture / Unknown 06/09/2025 4:42 AM EDT 06/09/2025 4:47 AM EDT us Justine Castillo MD LAB BLOOD ORDERABLES Final Res ult Performing Organization Address [facility]/ZIP Wy de Phone Number [facility] [address] [place] [address], [place] [phone] * (ABNORMAL) Salicylate level (06/09/2025 4:42 AM EDT) Salicylate Level <1.7(L) 2.0 - 29.0 mg/dL LAB CHEMISTRY METHOD 06/09/2025 5:20 AM EDT [facility] Blood Venous blood specimen / Unknown Venipuncture / Unknown 06/09/2025 4:42 AM EDT 06/09/2025 4:47 AM EDT us Justine Castillo MD LAB BLOOD ORDERABLES Final Res ult Performing Organization Address [facility] de Phone Number [facility] [address] [place] [address], [place] [phone] * (ABNORMAL) Comprehensive metabolic panel (06/09/2025 4:42 AM EDT) Sodium 138 133 - 145 mmol/L LAB CHEMISTRY METHOD 06/09/2025 5:32 AM EDT [facility] Potassium 4.5 3.5 - 5.5 mmol/L LAB CHEMISTRY METHOD 06/09/2025 5:32 AM EDT [facility] Chloride 102 96 - 110 mmol/L LAB CHEMISTRY METHOD 06/09/2025 5:32 AM [facility] CO2 30 21 - 32 mmol/L LAB CHEMISTRY METHOD 06/09/2025 5:32 AM [facility] Anion Gap 6 3 - 11 LAB CHEMISTRY METHOD 06/09/2025 5:32 AM [facility] Glucose 138(H) 70 - 100 mg/dL LAB CHEMISTRY METHOD 06/09/2025 5:32 AM [facility] BUN 11 5 - 25 mg/dL LAB CHEMISTRY METHOD 06/09/2025 5:32 AM [facility] Creatinine 0.75 0.70 - 1.30 mg/dL LAB CHEMISTRY METHOD 06/09/2025 5:32 AM [facility] eGFR 116 >=60 mL/min/1. 73m2 LAB CHEMISTRY METHOD 06/09/2025 5:32 AM [facility] Comment:Calculation based on the Chronic Kidney Disease Epidemiology Collaboration (CKD-EPI) equation refit without adjustment for race. BUN/Creatinine Ratio 14.7 LAB CHEMISTRY METHOD 06/09/2025 5:32 AM [facility] Calcium 9.5 8.5 - 10.5 mg/dL LAB CHEMISTRY METHOD 06/09/2025 5:32 AM [facility] AST (SGOT) 40 10 - 42 unit/L LAB CHEMISTRY METHOD 06/09/2025 5:32 AM [facility] ALT (SGPT) 48 10 - 60 unit/L LAB CHEMISTRY METHOD 06/09/2025 5:32 AM [facility] Alkaline Phosphatase 118 42 - 121 unit/L LAB CHEMISTRY METHOD 06/09/2025 5:32 AM [facility] Total Protein 7.6 6.0 - 8.0 g/dL LAB CHEMISTRY METHOD 06/09/2025 5:32 AM [facility] Albumin 4.0 3.2 - 5.0 g/dL LAB CHEMISTRY METHOD 06/09/2025 5:32 AM EDT [facility] Total Bilirubin 0.4 0.0 - 1.4 mg/dL LAB CHEMISTRY METHOD 06/09/2025 5:32 AM EDT [facility] Blood Venous blood specimen / Unknown Venipuncture / Unknown 06/09/2025 4:42 AM EDT 06/09/2025 4:47 AM EDT us Justine Castillo MD LAB BLOOD ORDERABLES Final Res ult [facility] [address] [place] [address], * CT Cervical Spine wo Contrast (06/04/2025 6:46 PM EDT) Anatomical Region Laterality Modality Spine, C-spine Computed Tomogra phy 06/04/2025 7:36 PM EDT Impressions 06/04/2025 7:36 PM EDT No acute findings. This document has been electronically signed by: Milly Lowe MD on 06/04/2025 19:36:03 Narrative 06/04/2025 7:36 PM EDT INDICATION: Discitis, suspected or evaluation of CT cervical spine without contrast Comparison: CT - CT C SPINE WO CONTRAST - 02/21/25 23:19 EDT Findings: Normal vertebral body alignment. Mild anterior wedging of C6, similar to prior. Mild degenerative disc disease at C5-C6 and C7-T1. No acute fractures or dislocations. No osseous erosions to suggest discitis or osteomyelitis. No acute findings on limited view of the intracranial contents. No cervical fluid collections or masses. No consolidation or effusion at the lung apices. Procedure Note Milly Lowe MD - 06/04/2025 INDICATION: Discitis, suspected or evaluation of CT cervical spine without contrast Comparison: CT - CT C SPINE WO CONTRAST - 02/21/25 23:19 EDT Findings: Normal vertebral body alignment. Mild anterior wedging of C6, similar to prior. Mild degenerative disc disease at C5-C6 and C7-T1. No acute fractures or dislocations. No osseous erosions to suggest discitis or osteomyelitis. No acute findings on limited view of the intracranial contents. No cervical fluid collections or masses. No consolidation or effusion at the lung apices. IMPRESSION: No acute findings. This document has been electronically signed by: Milly Lowe MD on 06/04/2025 19:36:[address] PROCEDURES Final Result * CT Head wo Contrast (06/04/2025 6:46 PM EDT) Anatomical Region Laterality Modality Head and Neck Computed Tomogra phy 06/04/2025 7:30 PM EDT Impressions 06/04/2025 7:30 PM EDT 1. No acute intracranial findings. This document has been electronically signed by: Milly Lowe MD on 06/04/2025 19:30:30 Narrative 06/04/2025 7:30 PM EDT INDICATION: pain CT head without contrast Comparison: CT - CT HEAD WO CONTRAST - 02/21/25 23:19 EDT Findings: No intra-axial mass, midline shift, hydrocephalus, or acute hemorrhage. No significant atrophy-like change or white matter disease. The visualized paranasal sinuses and mastoid air cells are normal. The orbits are unremarkable. There is no acute fracture. Procedure Note Milly Lowe MD - 06/04/2025 INDICATION: pain CT head without contrast Comparison: CT - CT HEAD WO CONTRAST - 02/21/25 23:19 EDT Findings: No intra-axial mass, midline shift, hydrocephalus, or acute hemorrhage. No significant atrophy-like change or white matter disease. The visualized paranasal sinuses and mastoid air cells are normal. The orbits are unremarkable. There is no acute fracture. IMPRESSION: 1. No acute intracranial findings. This document has been electronically signed by: Milly Lowe MD on 06/04/2025 19:30:[address] PROCEDURES Final Result * XR Hip 2-3 Views Left (05/03/2025 [...] Signed Date: 05/03/2025 10:46 ET Workstation ID: [id number] Transcribed By: Self Edit Transcribed Date: 05/03/2025 [...] Signed Date: 05/03/2025 10:46 ET Workstation ID: [id number] Transcribed By: Self Edit Transcribed Date: 05/03/2025 10:44 ET us Kenton Panchal MD IMG XR PROCEDURES Final Res ult from Last 3 Months Insurance MEDICARE MEDICAID [...] currently active code status orders. Care Teams Facing End Trimmer Relationship Specialty Start Date End Date Physician, No Pcp PCP - General 06/09/25
--- OUTSIDE RECORDS SUMMARY | 2025-07-15 16:27 | XMS_ITS | Encounter Summary ---
Author Organization [facility] Address [address] [place] [address] Care Team Providers Care Supreme Court Justice Name Role Phone Rosa Sepulveda NP Primary Care Provider +1- [phone] Encounter Details Date Type Department Care Team (Late st Contact Info) Description 07/08/2020 [facility] [address] [place] [address] David Corrales MD [address] [place] [id number] Social History Tobacco Use Types Packs/Day Years [...] on filedocumented in this encounter Care Teams Supreme Court Justice Relationship Specialty Start Date End Date Rosa Sepulveda NP [address] [place] [address] PCP - General 05/09/19 documented as of this encounter
--- OUTSIDE RECORDS SUMMARY | 2025-07-15 16:28 | XMS_ITS | Encounter Summary ---
Author Organization [facility] Address [address] [place] [address] Phone Care Team Providers Care Diaper Folder Name Role Phone Rosa Sepulveda NP Primary Care Provider +1- [phone] Encounter Details Date Type Department Care Team (Late st Contact Info) Description 05/27/2020 Procedure [place] Admitting Dept - Virtual Department [address] [place] [address] Social History Tobacco Use Types Packs/Day Years [...] on filedocumented in this encounter Care Teams Diaper Folder Relationship Specialty Start Date End Date Rosa Sepulveda NP [address] [place] [id number] PCP - General Family Medicine 09/13/19 documented as of this encounter Additional Source Comments The information contained in this document represents components of the legal health record. It is not the complete legal health record.[facility]
--- OUTSIDE RECORDS SUMMARY | 2025-07-15 16:28 | XMS_ITS | Data Portability ---
Author Organization [facility] Address [address] [place] [address] Care Team Providers Care Neurology Specialist Name Role Phone [facility] Primary Care Provider Assessment Encounter Date Assessment [...] I have accessed patient records on the [employer]. This information was pertinent in [...] By Organization Details Last Modified Time 09/03/2019 [id number] YOU WERE SEEN FO R WRIST FRACTURE. WE APPLIED WRIST BRACE. PLEASE, KEEP YOUR ARM ELEVATED, APPLY ICE 20 MIN ON/OFF. PLEASE, FOLLOW UP WITH ORTHO SCHEDULED. Thank you for your visit with [facility] today. We cannot always find the exact [...] in your condition between 8am-10pm, [facility] at [phone] to help navigate your care. Thank you for your visit with [facility] today. You do not appear to have [...] in your condition between 8am-10pm, please [facility] at [phone] to help navigate your care. zoey Not available 09/03/2019 13:25:38 Reason for Referral None Reported. Medical Equipment None Reported. Allergies Allergen ID Allergen Name Allergen Category Reaction Reaction Severity Criticality Documentation Date Start Date Code Code System Note Provider Name and Address Organization Details Recorded Time 55909 baclofen medicatio n Not available Not available Not available 09/03/2019 1292 RxNorm OLVIN SINGLETARY [address] [place], [address], [place] [facility] 0 13:07:35 [...] Recorded Heart rate Respiratory rate Oxygen saturation Body temperature Systolic And Diastolic Provider Name and Address Organization Details Last Updated DateTime 0 118 /min 18 /min 98 % 98.2 [degF] 150/96 mm[Hg] Not Available [facility] 0 13:10:54 Social History Question Answer Notes LastModified by Organizat ion Details LastModified Time Tobacco Smoking Status Never Smoker OLVIN SINGLETARY [address], [place], [address], [place] [facility] 09/03/2019 13:30:41 How Many Days In The Past Year Have You Had A Heavy Drinking Consumption (4+ Female, 5+ Male)? 0 Information not available 09/03/2019 Marital Status Single Informatio n not available 09/03/2019 Sex: Unknown Functional Status None recorded. Mental Status None recorded. Family History Relationship Description Onset Age of this Age Resolved Age Notes LastModified by Organization Details LastModified Time Father No current problems or disability [email or web address] Not available 09/03 13:30:35 Mother No current problems or disability nyuzych Not available 09/03 13:30:35 Medical History Condition Response Coronary Artery Disease N COPD N Depression Y Cancer N Stroke N High Cholesterol N Kidney Disease N Diabetes N Asthma N Pulmonary Embolism N Hypertension N Past Encounters Encounter ID Performer Location Encounter Start Date Encounter Closed Date Diagnosis/Indication Diagnosis SNOMED-CT Code Diagnosis ICD10 Code Diagnosis IMO Codes Diagnosis Note [id number] OLVIN SINGLETARY [facility] [address] [place] [address] 09/03/2019 13:05:13 09/05/2019 20:30:49 Pain in upper limb 576142696 M79.601 Traumatic injury 0248379 04 T14.90XA Health Concerns Section Related Observation LastModified by Organization Detai ls LastModified Time None Recorded Concern Status LastModified by Organization Details LastModified Time None Recorded Advance Directives Directive None Recorded Payers Insurance Date Sequence Insurance Name Policy Number Policy Marinelli Covered Member ID Marinelli Member ID Guarantor Name 09/05/2019 2 [place] [facility] Jean Roldan [id number] Jean Roldan 09/02/2019 1 *SELF PAY* Jean Roldan [id number] Jean Roldan 09/03/2019 1 [place]IC[place] B[place] [employer] Jean Roldan [id number] Jean Roldan Notes Date Note Type Note [...] of the affected extremity. OLVIN SINGLETARY [address], [place], [address], [place] [facility] 09/03/2019 13:49:15
--- OUTSIDE RECORDS SUMMARY | 2025-07-15 16:28 | XMS_ITS | Encounter Summary ---
Author Organization [facility] Address [address] [place] [address] Phone Care Team Providers Care It Operations Manager Name Role Phone Rosa Sepulveda NP Primary Care Provider +1- [phone] Encounter Details Date Type Department Care Team (Late st Contact Info) Description 05/27/2020 Procedure Pass [place] Admitting Dept - Virtual Department [address] [place] [address] Social History Tobacco Use Types Packs/Day Years [...] on filedocumented in this encounter Care Teams It Operations Manager Relationship Specialty Start Date End Date Rosa Sepulveda NP [address] [place] [address] PCP - General Family Medicine 09/13/19 documented as of this encounter Additional Source Comments The information contained in this document represents components of the legal health record. It is not the complete legal health record.[facility]
[2025-07-15 17:16] VITALS: BP 137/93; PULSE 82; RESP 16; TEMP 36.6; O2SAT 98
[2025-07-15] MEDS: iohexoL 350 MG/ML 100 ML INFUS..BTL IV (17:55)
[2025-07-15 18:43] LABS: Appearance Urine Clear; Glucose Urine UA Negative (Negative); PH 5.5 (5.0-9.0); Specific Gravity - Urine 1.020 (1.005-1.025)
[2025-07-15 20:35] VITALS: BP 137/93; PULSE 82; RESP 16; TEMP 36.6; O2SAT 98
== END 2025-07-15 20:36 | disposition home or self-care (01) ==
PROVIDERS: Physician Assistant Medical; Emergency Provider Emergency Medicine
DX: S20.213A Contusion of bilateral front wall of thorax, initial encounter (principal); S80.01XA Contusion of right knee, initial encounter; R07.89 Other chest pain; M79.10 Myalgia, unspecified site; R40.2410 Glasgow coma scale score 13-15, unspecified time; R19.7 Diarrhea, unspecified; X58.XXXA Exposure to other specified factors, initial encounter; Y93.9 Activity, unspecified; Y92.9 Unspecified place or not applicable; Y99.8 Other external cause status; F17.210 Nicotine dependence, cigarettes, uncomplicated; Z59.00 Homelessness unspecified; Z79.899 Other long term (current) drug therapy
CPT/HCPCS: 36415; 71260; 74177; 80053; 81003; 83735; 85025; 85610; 99284; Q9967

== ENCOUNTER → 2025-07-15 17:04 | Outpatient (BNV) | payer MEDICARE, MEDICAID, SELFPAY | PROVIDERS: Emergency Provider Emergency Medicine; Visit Provider Radiology Diagnostic Radiology | DX: S39.91XA Unspecified injury of abdomen, initial encounter (principal); S22.43XA Multiple fractures of ribs, bilateral, initial encounter for closed fracture; K57.30 Diverticulosis of large intestine without perforation or abscess without bleeding; K80.20 Calculus of gallbladder without cholecystitis without obstruction; M85.80 Other specified disorders of bone density and structure, unspecified site; K76.89 Other specified diseases of liver; E27.9 Disorder of adrenal gland, unspecified | CPT/HCPCS: 71260; 74177 ==

== ENCOUNTER 2025-07-15 21:56 | Emergency (ER) | payer MEDICARE, MEDICAID, SELFPAY ==
[2025-07-15 22:02] VITALS: BP 165/101; PULSE 101; RESP 18; TEMP 36.6; O2SAT 97; BMI 34.0
--- NOTE | 2025-07-15 22:57 | ED_ITS ---
HPI - Psych General Chief Complaint: Psychiatric Symptoms Stated Complaint: PT/CS Time Seen by Provider: 07/15/25 22:26 Source: patient History of Present Illness HPI Narrative: 40 year old male with a history of bipolar disorder, PTSD, severe anxiety, insomnia, alcohol-use disorder, peripheral neuropathy, and right below-knee amputation (BKA) returns to the ED only a few hours after discharge. Earlier today he was evaluated for hematemesis and melena; a contrast CT scan reportedly showed no acute bleeding. He was discharged but had nowhere to go and reports sleeping outside for ~2.5 months since an eviction in April. Anxiety escalated when no intermediate beds were available late at night, prompting return. ? Psychiatric medications (Lamictal, Zoloft, Seroquel) have been lapsed for ~1?1.5 months due to homelessness and loss of primary care. ? Peripheral neuropathy pain described as ?electrical deluna everywhere?; last pregabalin dose ~1 month ago; pain and paresthesias, along with lack of Seroquel, contribute to 5 days of total insomnia. ? Denies suicidal ideation; reports heavy emotions related to bereavement and time of year. ? Reports sobriety from alcohol ?for quite some time? and last cocaine use ~1.5 months ago (previously monthly). ? Requests social-work assistance for housing/resources and to re-establish psychiatric care. ? Bereavements: terence 2016; father December this year, adding emotional stress. Primary goal tonight is relief of anxiety/insomnia/neuropathy pain and connection with manager social responsibility and behavioral health. Related Data Home Medications ?Medication ?Instructions ?Recorded ?Confirmed hydroxyzine HCl 50 mg tablet 50 mg PO TID 04/14/25 omeprazole 40 mg capsule,delayed 40 mg PO BID@0630,163 0 04/14/25 06/04/25 release pregabalin 225 mg capsule 225 mg PO BID 04/14/2507/16 quetiapine 300 mg tablet 300 mg PO BEDTIME 04/14/25 1 09/15/24 sertraline 100 mg tablet 150 mg PO DAILY 04/14/2501/14 daptomycin 500 mg intravenous 500 mg IV DAILY 04/27/25 06/04/25 solution Previous Rx's ?Medication ?Instructions ?Recorded loperamide 2 mg capsule 2 mg PO Q6H PRN diarrhea #30 caps 04/18/25 (Anti-Diarrheal (loperamide)) bisacodyl 5 mg tablet,delayed 20 mg (4 x 5 mg) PO ONCE 05/01/25 release (Dulcolax (bisacodyl)) colonoscopy prep 1 day #4 tabs polyethylene glycol 3350 17 238 g PO ONCE colonoscopy prep 1 05/01/25 gram/dose oral powder (Miralax) day #238 grams ondansetron 4 mg disintegrating 4 mg PO Q8H PRN nausea and 05/21/25 tablet vomiting #20 tabs Allergies Allergy/AdvReac Type Severity Reaction Status Date / Time baclofen Allergy Hives Verified 07/15/25 22:05 escitalopram (From Lexapro) Allergy Vomiting Verified 07/15/25 22:05 lithium Allergy Unresponsiv Verified 07/15/25 22:05 e metformin Allergy Unknown Verified 07/15/25 22:05 morphine Allergy Hives Verified 07/15/25 22:05 sulfamethoxazole (From Allergy Hives Verified 07/15/25 22:05 Bactrim) tramadol Allergy Hives Verified 07/15/25 22:05 trimethoprim (From Bactrim) Allergy Hives Verified 07/15/25 22:05 Review of Systems Review of Systems: as per HPI, full review of systems performed and negative but for the above mentioned pertinent positives and negatives. [facility] Past Medical History Medical History Sacral decubitus ulcer Osteomyelitis of foot Decubitus ulcer Amputation of one or more toes Aftercare following right hip joint replacement surgery Bipolar disorder PTSD (post-traumatic stress disorder) Sacral decubitus ulcer Peripheral neuropathy Non-insulin dependent type 2 diabetes mellitus Guillain-[place] Surgical History History of esophagogastroduodenoscopy (EGD) Hx of laminectomy History of total hip replacement Hx of right BKA Social History Social History Household Members: None Housing: House Are you a primary child care to a significant other at home: No Do you presently have visiting nurse or other home services: Yes ([facility] daily) Unable to assess alcohol history related to: Unknown Alcohol intake: former Comment: stand pivot to luz marina avila Patient Tobacco Use Status: Current everyday Tobacco user Tobacco use type: Cigarette Cigarette Packs Per Day: 1.5 Cigarettes Per Day: 30.0 Years Smoked: 29 Smoked in Last 30 Days: No e-Cigarette/Vaping Use: Never Used Second Hand Smoke Exposure: No Use of substances other than those prescribed or required for medical reasons: No Substance Use Type: Crack/Cocaine and Marijuana Advance Directives: No Advance Directives Information Provided: No service: No Physical Exam Exam: Exam: GENERAL: Unkempt, no acute distress. SKIN: Normal skin color for ethnicity, warm, dry, no rashes noted. HEENT:? Normocephalic, atraumatic, no stridor, posterior oropharynx nonerythematous, dentition intact, EOMI. NECK: Soft, supple, full ROM, midline structures nontender, no step-offs, no deformities, no lymphadenopathy. CHEST: Heart regular rate and rhythm, no murmurs, symmetric chest rise and fall. PULMONARY: Clear to auscultation bilaterally, no labored breathing, no wheezes/rhales/rhonchi. ABDOMINAL: Soft, nondistended, nontender, positive bowel sounds in all quadrants. : Deferred. MUSCULOSKELETAL: Normal tone, full range of motion, R BKA, no peripheral edema. NEURO: Alert and oriented x3, CN II through XII intact, equal strength and sensation bilateral upper and lower extremities, no focal neurologic deficits.? PSYCHIATRIC: Flat affect, poor eye contact, withdrawn Vital Signs: Vital Signs: Last Vital Signs Temp 98.1 F 07/16/25 08:56 Pulse 93 07/16/25 08:56 Resp 16 07/16/25 08:56 BP 142/96 H 07/16/25 08:56 Pulse Ox 98 07/16/25 08:56 O2 Del Method Room Air 07/16/25 08:56 BMI result Body Mass Index 34.0 Course Reevaluation(s) Reevaluation #1: Patient was evaluated by care team behavioral health specialists Antolin Kerr who spoke with the patient and is able to provide him a Lyft to [facility] for housing and case management resources. Patient has follow up with [facility] for his psychiatric medications. Patient feels confident with resources provided to him and feels comfortable to present to [facility]. Patient Denies SI, HI, AH, VH. Time: 11:04 Medications Administered Discontinued Medications Generic Name Dose Route Start Last Admin Trade Name Jake PRN Reason Stop Dose Admin Pregabalin 150 mg 07/16/25 01:49 07/16/25 02:10 Pregabalin 150 Mg Capsule PO 07/16/25 01:50 150 mg ONCE ONE Administration Quetiapine Fumarate 300 mg 07/16/25 01:49 07/16/25 02:10 Quetiapine Fumarate 300 Mg Tablet PO 07/16/25 01:50 300 mg ONCE ONE Administration Medical Decision Making Medical Decision Making [facility] Narrative: Problem #1: Housing insecurity / Homelessness Assessment: No intermediate bed available overnight; patient sleeping outside, contributing to anxiety and medication non-adherence. Differential diagnosis inc ludes housing insecurity, depression, anxiety, mood disorder, decompensated mental illnesses such as schizophrenia or bipolar disorder, medication noncompliance, among many others. Medical clearance protocol was initiated and performed during his previous ED visit earlier today. Plan: * SW consult in morning for intermediate placement and community resources. * Provide patient with information on obtaining primary care without fixed address. * Encourage contact with [facility]/support person; patient to remain in ED until SW evaluation. Problem #2: Bipolar disorder / PTSD / Severe anxiety with medication lapse Assessment: Off Lamictal, Zoloft, Seroquel for >=1 month; reports worsening anxiety and insomnia but denies SI. Plan: * Administer single ED doses of Lamictal and Seroquel tonight (per ED pharmacy availability). * Behavioral health team to evaluate and assist with medication re-initiation strategy and outpatient psychiatric linkage. Problem #3: Insomnia Assessment: Has not slept for 5 days; multifactorial?psychiatric medication lapse and neuropathic pain. Plan: * Night-time Seroquel dose for sleep in ED. * Address neuropathic pain (see Problem #4). Problem #4: Peripheral neuropathy pain Assessment: Describes diffuse ?electrical deluna?; last pregabalin dose ~1 month ago. Plan: * Administer pregabalin dose in ED for pain relief. * Include pregabalin in discussion with SW/behavioral health regarding prescription access. Differential Diagnosis Differential Diagnoses: The differential diagnosis associated with the presentation includes (as above) Admission/Observation Consideration of admission/observation: Escalation of care including admission/observation considered Consult Healthcare Provider Management of the patient was discussed with: Behavioral Health Provider Lab Data [facility] Lab Attestation statement: I reviewed the patient's lab results. Independent Historian Clinical information obtained from an independent historian. History obtained from or confirmed by: EMS External Record Review External record reviewed: Inpatient record Prescription Management I considered prescription management with: Other (Antipsychotics, anxiolytics) Chronic Conditions Patient?s care impacted by: Other (Bipolar disorder, substance use disorder, housing insecurity) Social Determinants Patient?s care significantly limited by Social Determinants of Health including: Inadequate housing, Problems related to primary support group, Unemployment and Other Social Determinant of Health Discharge Plan Discharge Clinical Impression: Housing insecurity, PTSD (post-traumatic stress disorder), Bipolar disorder, Depression Patient Disposition: Home, Self-Care Additional Instructions: You were seen in our Emergency Department today for treatment of a behavioral health issue. It is important after your visit that you follow up with either your behavioral health provider or a primary care doctor within 7 days.? If you have trouble finding a therapist you can reach out to [address] [phone] [facility] can be reached 7 days a week 24 hours a day.? Call [phone] to speak with someone.? Return for any worsening symptoms or concerns such as thoughts of self harm or harm to others. Please call 911 if you feel your mental health is worsening.? Prescriptions: No Action bisacodyl [Dulcolax (bisacodyl)] 5 mg tablet,delayed release (DR/EC) 20 mg PO ONCE 1 Days Qty: 4 0RF Rx Instructions: the day before colonoscopy take 2 pills at 12pm and 2 pills at 5pm with plenty of water polyethylene glycol 3350 [Miralax] 17 gram/dose powder 238 g PO ONCE 1 Days Qty: 238 0RF Rx Instructions: THE DAY BEFORE your procedure mix entire bottle with 64 ounces of Gatorade- no red, blue or purple. AT 5PM Start drinking 1 cup every 15minutes until half is gone. Continue drinking plenty of clear liquids. AT 10PM Finish drinking remaining prep. quetiapine 300 mg tablet 300 mg PO BEDTIME sertraline 100 mg tablet 150 mg PO DAILY hydroxyzine HCl 50 mg tablet 50 mg PO TID omeprazole 40 mg capsule,delayed release(DR/EC) 40 mg PO BID@0630,1630 pregabalin 225 mg capsule 225 mg PO BID loperamide [Anti-Diarrheal (loperamide)] 2 mg capsule 2 mg PO Q6H PRN (Reason: diarrhea) Qty: 30 0RF daptomycin 500 mg recon soln 500 mg IV DAILY ondansetron 4 mg tablet,disintegrating 4 mg PO Q8H PRN (Reason: nausea and vomiting) Qty: 20 0RF Referrals: Jesus Gonzalez PA-C [Primary Care Provider, Internal Medicine] Interventions: [place]-Suicide Risk Severity Scale Last Done: 07/15/25 23:30 Print Language: Paraguayan
[2025-07-16 02:12] VITALS: BP 142/92; PULSE 84; RESP 16; O2SAT 96
--- NOTE | 2025-07-16 08:47 | MHC.CM.ED ---
Received case management consult from Dr Peters overnight. Patient came to the ER with anxiety/depression. Requesting help establishing psych care. Care Team consult ordered. CM consult deferred until cleared by Care Team. Continue to monitor for d/c needs.
[2025-07-16 08:56] VITALS: BP 142/96; PULSE 93; RESP 16; TEMP 36.7; O2SAT 98
--- NOTE | 2025-07-16 10:18 | PC.NURSE ---
Assumed care of pt at 0700. Pt allowed to sleep. Care team to see patient and once cleared CM will see pt.
--- NOTE | 2025-07-16 10:37 | MHC.CARE ---
Pt is a 40 y/o, single, [place] speaking, male who is previously unknown to the CARE Team but familiar to the Recovery Team.? Pt presented to the ED a few hours after discharge (Seen for medical issues). Pt reports having nowhere to go, reporting sleeping outside for approximately 2 ? months since an eviction in April. He reported his anxiety escalated when there were no prison beds were available late at night, prompting his return. There is a hx of bipolar disorder, PTSD, anxiety, insomnia, alcohol-use disorder, peripheral neuropathy, and right below-knee amputation (BKA). Pt has been off his psychiatric meds for 1?1.5 months due to homelessness and loss of primary care. His peripheral neuropathy pain, lack of Seroquel, and sleeping outdoors, are contributors to his inability to sleep. Pt is requesting social-work assistance for housing/resources and to re-establish psychiatric care. Pt is alert and oriented x4 and is assessed in his room in the behavioral health pod of the ED.? He is dressed in hospital attire, appears older than his stated age, and his grooming is unremarkable. Pt's speech is normal for rate and prosody and eye contact is unremarkable. Pt is engaged in the assessment and is seeking help for his housing insecurities and his need for medications.? Pt reports poor sleep and good appetite.? He attributes the poor sleep to his lack of a secure, safe, and temperature controlled area in which to sleep.? He also reports his Seroquel was a great aid in sleeping but he is no longer on it. He describes his mood as ?good?, his affect is congruent with his mood. Pt endorses anxiety in the context of his housing insecurity. Pt denies depression, AVH, HI, , SI, and self-harm. His thought process appears linear and organized, future and goal oriented, pertinent to relevant topics and without any delusional content, or grandiosity.? Their insight, judgement, and impulse control appear unimpaired as evidenced by his seeking help. Given that pt is denying SI at this time, he appears to be at low risk for intentional self-harm.? Currently, pt does not appear to be presenting in an acute crisis and does not appear to meet the criteria for an inpatient psychiatric admission at this time and there would be no clear goal for such an admission.? Pt has outpatient therapy in place through [facility] and was encouraged to speak with her regarding a referral to a [facility] prescriber.? Pt has been advised that CARE Team cannot find him housing.? Pt reports that he does understand.? CARE Team will Lyft pt to the [facility] so that he may discuss with them community based supports for Housing, Case Management, support in his Recovery and any other needs they may be able to provide.? Pt will be discharged home
[2025-07-16 11:18] VITALS: BP 135/85; PULSE 86; RESP 16; TEMP 36.7; O2SAT 98
== END 2025-07-16 11:19 | disposition home or self-care (01) ==
PROVIDERS: Emergency Provider Emergency Medicine; PCP Physician Assistant
DX: F33.1 Major depressive disorder, recurrent, moderate (principal); F43.10 Post-traumatic stress disorder, unspecified
CPT/HCPCS: 99284

== ENCOUNTER 2025-07-18 17:18 | Outpatient (BNV) | payer MEDICARE, MEDICAID, SELFPAY | END 2025-07-20 16:03 | PROVIDERS: Admitting Provider Psychiatry & Neurology Psychiatry; Visit Provider Internal Medicine | DX: Z13.6 Encounter for screening for cardiovascular disorders (principal) | CPT/HCPCS: 93010 ==

== ENCOUNTER 2025-07-18 17:18 | Inpatient (IN) | payer MEDICARE, MEDICAID, SELFPAY ==
--- OUTSIDE RECORDS SUMMARY | 2025-07-18 05:54 | XMS_ITS | Encounter Summary ---
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 07/18/2025 6:38 AM EST 07/18/2025 7:08 AM EST us Divya Spring MD LAB BLOOD ORDERABLES Final Resul t [facility] [address] [place] [address], * Ethanol (07/18/2025 6:38 AM EST) Ethanol Level <3 0 - 10 mg/dL 07/18/2025 7:40 AM EST [facility] Blood Venous blood specimen / Unknown Venipuncture / Unknown 07/18/2025 6:38 AM EST 07/18/2025 7:08 AM EST us Divya Spring MD LAB BLOOD ORDERABLES Final Resul t [facility] [address] [place] [address], * (ABNORMAL) Comprehensive metabolic panel (07/18/2025 6:38 AM EST) Sodium 141 133 - 145 mmol/L 07/18/2025 7:36 AM [facility] Potassium 4.1 3.5 - 5.5 mmol/L 07/18/2025 7:36 AM [facility] Chloride 106 96 - 110 mmol/L 07/18/2025 7:36 AM [facility] CO2 23 21 - 32 mmol/L 07/18/2025 7:36 AM [facility] Anion Gap 12(H) 3 - 11 07/18/2025 7:36 AM [facility] Glucose 145(H) 70 - 100 mg/dL 07/18/2025 7:36 AM [facility] BUN 14 5 - 25 mg/dL 07/18/2025 7:36 AM [facility] Creatinine 0.70 0.70 - 1.30 mg/dL 07/18/2025 7:36 AM [facility] eGFR 118 >=60 mL/min/1. 73m2 07/18/2025 7:36 AM [facility] Comment:Calculation based on the Chronic Kidney Disease Epidemiology Collaboration (CKD-EPI) equation refit without adjustment for race. BUN/Creatinine Ratio 20.0 07/18/2025 7:36 AM [facility] Calcium 9.3 8.5 - 10.5 mg/dL 07/18/2025 7:36 AM [facility] AST (SGOT) 33 10 - 42 unit/L 07/18/2025 7:36 AM [facility] ALT (SGPT) 38 10 - 60 unit/L 07/18/2025 7:36 AM [facility] Alkaline Phosphatase 124(H) 42 - 121 unit/L 07/18/2025 7:36 AM [facility] Total Protein 6.8 6.0 - 8.0 g/dL 07/18/2025 7:36 AM [facility] Albumin 4.2 3.2 - 5.0 g/dL 07/18/2025 7:36 AM [facility] Total Bilirubin 0.4 0.0 - 1.4 mg/dL 07/18/2025 7:36 AM [facility] Blood Venous blood specimen / Unknown Venipuncture / Unknown 07/18/2025 6:38 AM EST 07/18/2025 7:08 AM EST us Divya Spring MD LAB BLOOD ORDERABLES Final Resul t [facility] [address] [place] [address], [place] [phone] * Methadone, urine (07/18/2025 6:28 AM EST) [facility] Methadone Screen, Urine Negative Negative 07/18/2025 7:05 AM [facility] Comment: Assay cutoff 300 ng/mL Semi-quantitative assay for screening purposes only. Unconfirmed screening result should not be used for non-medical purposes. *ALTERNATE METHOD CONFIRMATION DONE UPON REQUEST ONLY* Urine Urine specimen obtained by clean catch procedure / Unknown Non-blood Collection / Unknown 07/18/2025 6:28 AM EST 07/18/2025 6:39 AM EST us Divya Spring MD LAB URINE ORDERABLES Final Resul t Performing Organization Address City/[facility]/ZIP Co de Phone Number [facility] [address] [place] [address], [place] [phone] * Phencyclidine, urine (07/18/2025 6:28 AM EST) PCP Scrn, Ur Negative Negative 07/18/2025 7:05 AM EST [facility] Comment: Assay cutoff 25 ng/mL Semi-quantitative assay for screening purposes only. Unconfirmed screening result should not be used for non-medical purposes. *ALTERNATE METHOD CONFIRMATION DONE UPON REQUEST ONLY* Urine Urine specimen obtained by clean catch procedure / Unknown Non-blood Collection / Unknown 07/18/2025 6:28 AM EST 07/18/2025 6:39 AM EST us Divya Spring MD LAB URINE ORDERABLES Final Resul t Performing Organization Address [facility] de Phone Number [facility] [address] [place] [address], * Buprenorphine screen, urine (07/18/2025 6:28 AM EST) Buprenorphine Screen Urine Negative Negative 07/18/2025 7:04 AM EST [facility] Urine Urine specimen obtained by clean catch procedure / Unknown Non-blood Collection / Unknown 07/18/2025 6:28 AM EST 07/18/2025 6:39 AM EST Narrative [facility] - 07/18/2025 7:04 AM EST Assay cutoff 5 ng/mL Semi-quantitative assay for screening purposes only. Unconfirmed screening result should not be used for non-medical purposes. *ALTERNATE METHOD CONFIRMATION DONE UPON REQUEST ONLY* us Divya Spring MD LAB URINE ORDERABLES Final Resul t Performing Organization Address City/[facility]/ZIP Co de Phone Number [facility] [address] [place] [address], * (ABNORMAL) Drug abuse screen 8a panel, urine (07/18/2025 6:28 AM EST) Amphetamine Screen, Ur Negative Negative 07/18/2025 7:05 AM [facility] Comment:Certain OTC medicati ons containing ephedrine, phenylephrine, pseudoephedrine and phenylpropanolamine can cause false positive results. Barbiturate Screen, Ur Negative Negative 07/18/2025 7:05 AM [facility] Benzodiazepine Screen, Ur Negative Negative 07/18/2025 7:05 AM [facility] Cocaine Screen, Ur Positive(A ) Negative 07/18/2025 7:05 AM [facility] Opiate Screen, Ur Negative Negative 025 7:05 AM [facility] Cannabinoid (THC) Screen, Ur Positive(A ) Negative 07/18/2025 7:05 AM [facility] Comment:Specimens from patie nts taking pantoprazole sodium (Protonix) have been shown to produce false positive results. Oxycodone Screen, Ur Negative Negative 06/24 7:05 AM [facility] Fentanyl, Ur Negative Negative 07/18/2025 7:05 AM [facility] Urine Urine specimen obtained by clean catch procedure / Unknown Non-blood Collection / Unknown 07/18/2025 6:28 AM EST 07/18/2025 6:39 AM EST [facility] - 07/18/2025 7:05 AM EST Assay cutoffs: Amphetamines 1000 ng/mL Barbiturates 200 ng/mL Benzodiazepines 200 ng/mL Cocaine 300 ng/mL Fentanyl 1 ng/mL Opiates 300 ng/mL Oxycodone 100 ng/mL THC 50 ng/mL Semi-quantitative assay for screening purposes only. Unconfirmed screening result should not be used for non-medical purposes. *ALTERNATE METHOD CONFIRMATION DONE UPON REQUEST ONLY* us Divya Spring MD LAB URINE ORDERABLES Final Resul t [facility] [address] [place] [address], documented in this encounter Visit Diagnoses Diagnosis Suicidal ideation- Primary documented in this encounter Administered Medications Active Administered Medications - up to 3 most recent administrations Medication Order MAR Action Action Date Dose Rate Site clonazePAM (KlonoPIN) tablet 0.5 mg 0.5 mg, oral, 2 times daily PRN, anxiety, Starting on Wed07/18/25 at 1116, Hazardous Medication Intact: - Single pair of ASTM standard [id number] certified gloves - Eye/face protection if vomit or potential to spit up Manipulated: - Double pair of ASTM standard [id number] certified gloves - Eye/face protection if vomit or potential to spit up - Staff at reproductive risk must also wear a hazardous gown - Crushing must be performed in sealed closed pouch - Splitting/cutting should be performed by pharmacy, if possible Given 07/18/2025 1:31 PM EST 0.5 mg divalproex (DEPAKOTE ER) 24 hr tablet 250 mg 250 mg, oral, 2 times daily, First dose on Wed07/18/25 at 1500, Hazardous Medication Intact: - Single pair of ASTM standard [id number] certified gloves - Eye/face protection if vomit or potential to spit up - Do NOT split, crush, or open dosage units lamoTRIgine (LaMICtal) tablet 25 mg 25 mg, oral, Daily, First dose on Wed07/18/25 at 1500 pregabalin (LYRICA) capsule 225 mg 225 mg, oral, 2 times daily, First dose on Wed07/18/25 at 1419 sertraline (ZOLOFT) tablet 100 mg 100 mg, oral, Daily, First dose on Wed07/18/25 at 1419 documented in this encounter Active and Recently Administered Medications Times are shown in EST. Scheduled Medication Order 07/16/2025 07/17/2025 07/18/2025 divalproex (DEPAKOTE ER) 24 hr tablet 250 mg 250 mg, oral, 2 times daily, First dose on Wed07/18/25 at 1500, Hazardous Medication Intact: - Single pair of ASTM standard [id number] certified gloves - Eye/face protection if vomit or potential to spit up - Do NOT split, crush, or open dosage units 1500 (Due) lamoTRIgine (LaMICtal) tablet 25 mg 25 mg, oral, Daily, First dose on Wed07/18/25 at 1500 1500 (Due) pregabalin (LYRICA) capsule 225 mg 225 mg, oral, 2 times daily, First dose on Wed07/18/25 at 1419 1419 (Due)2100 (Due) sertraline (ZOLOFT) tablet 100 mg 100 mg, oral, Daily, First dose on Wed07/18/25 at 1419 1419 (Due) PRN Medication Order 07/16/2025 07/17/2025 07/18/2025 clonazePAM (KlonoPIN) tablet 0.5 mg 0.5 mg, oral, 2 times daily PRN, anxiety, Starting on Wed07/18/25 at 1116, Hazardous Medication Intact: - Single pair of ASTM standard [id number] certified gloves - Eye/face protection if vomit or potential to spit up Manipulated: - Double pair of ASTM standard [id number] certified gloves - Eye/face protection if vomit or potential to spit up - Staff at reproductive risk must also wear a hazardous gown - Crushing must be performed in sealed closed pouch - Splitting/cutting should be performed by pharmacy, if possible 1331 (Given - Provid er: Nataly San RN) documented in this encounter Orders Medications Ordered That Danny ht Not Have Been Administered Count Last Ordered Date First Ordered Date divalproex (DEPAKOTE ER) 24 hr tablet 250 mg 1 07/18/2025 lamoTRIgine (LaMICtal) tablet 25 mg 1 07/18 pregabalin (LYRICA) capsule 225 mg 1 2024 sertraline (ZOLOFT) tablet 100 mg 1 025 Diet Count Last Ordered Date First Orde red Date ADULT DIET 1 07/18/2025 Nursing Count Last Ordered Date First Orde red Date VITAL SIGNS 1 07/18/2025 Consult Count Last Ordered Date First Orde red Date IP CONSULT TO DATE NIGHT CAREGIVER 1 07/18/2025 IP CONSULT TO PSYCHIATRY 1 07/18/2025 Precaution Count Last Ordered Date First Orde red Date SUICIDE PRECAUTIONS 1 07/18/2025 Privilege Level Count Last Ordered Date First O rdered Date 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
[2025-07-18 17:30] VITALS: BP 129/78; PULSE 99; RESP 12; TEMP 36.7; O2SAT 95
[2025-07-18 17:40] VITALS: BMI 35.4
--- OUTSIDE RECORDS SUMMARY | 2025-07-18 18:00 | XMS_ITS | Clinical Summary ---
Author Organization [facility] Address [address] [place] [address] Phone Care Team Providers Care Pasta Press Operator Name Role Phone Physician, No Pcp Primary Care Provider Unavaila ble Allergies Active Allergy Reactions Criticality Noted Date Comments Baclofen Hives Medium 06/20/2019 Diclofenac Sodium 02/08/2020 Topical,states steward skin off Lidocaine 03/20/2022 Topical cream [place] Unknown 02/21/2025 Hx lithium toxicity Metformin 03/20/2022 Morphine Hives 02/21/2025 Ketorolac Nausea And Vomiting 06/04/2025 vomiting Tramadol Unknown 05/03/2025 Medications CHOLECALCIFERO L, VITAMIN D3, ORAL Cholecalciferol (Vitamin D-3) 5000 UNIT/ML Liquid Place under the tongue. 05/14/20 22 Active senna-docusate (PERICOLACE) 8.6-50 mg per tablet Take 1 Tablet by mouth daily. Active glipiZIDE (GLUCOTROL) 5 mg tablet Take 0.5 tablets (2.5 mg total) by mouth 2 (two) times a day. 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 Encounters Date Type Department Care Team Description 07/18/2025 5:54 AM EST - 07/18/2025 5:21 PM EST [facility] Emergency [address] [place] [phone] Glenn Kan MD Suicidal ideation (Primary Dx) Discharge Disposition: Another Health Care Institution Not Defined 06/14/2025 2:54 AM EDT - 06/16/2025 2:57 PM EDT Emergency [facility] Emergency [address] [place] [phone] Chauncey Flores MD Deslouches, Joshua, MD Flores, Carlos M, MD Gordon, Ruth, MD Dunbar, MD Rayshawn Torres, MD Daniel Galeana Brianna, MD Trench foot of left lower extremity, initial encounter (Primary Dx); Chest wall pain Discharge Disposition: Home or Self Care 06/09/2025 4:15 AM EDT - 06/12/2025 3:05 PM EDT Emergency [facility] Emergency [address] [place] [phone] Justine Castillo MD Wyman, Tim, MD Zaidi, MD Clementine Dial Ashley, MD Landry, Jonathan P, MD Reid, Vamshi Foy MD Suicidal ideation (Primary Dx); Rhinovirus infection; Enterovirus infection; Musculoskeletal chest pain Discharge Disposition: Home or Self Care 06/04/2025 5:13 PM EDT - 06/04/2025 10:05 PM EDT Emergency [facility] Emergency [address] [place] [phone] Kenton Panchal MD Anxiety (Primary Dx); Injury of head, initial encounter; Neck pain; Chest wall pain Discharge Disposition: Home or Self Care 05/03/2025 9:34 AM EDT - 05/03/2025 11:23 AM EDT [facility] Emergency [address] [place] [phone] Kenton Panchal MD Fall, initial encounter (Primary Dx); Contusion of left hip, initial encounter Discharge Disposition: Home or Self Care from Last 3 Months Surgical History Surgery Date Site/Laterality Comments OTHER SURGICAL HISTORY PROCEDURE: [place] ANESTHESIA OPEN HIP JOINT PROCEDURE NOS Medical History Medical History Date Comments Anxiety DX:Anxiety PTSD (post-traumatic stress disorder) DX:PTSD (post-traumatic stress disorder) 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) DM (diabetes mellitus) ([facility] V24, [facility] V28) History of right lower extre mity amputation ([facility] V24, [facility] V28) Social History Tobacco Use Types Packs/Day [...] Mass Index 34.67 07/18/2025 6:15 AM EST Plan of Treatment Health Maintenance Due Date [...] 2006 Diabetes: Annual GFR (Glomerular Filtration Rate) 07/18/2026 07/18/2025, 06/09/2025, 02/25/2025, Additional history exists RSV Immunization Adult Patients [...] AUTO DIFFERENTIAL STAT 07/18/2025 6:38 AM EST SALICYLATE LEVEL STAT 07/18/2025 6:38 AM EST ACETAMINOPHEN LEVEL STAT 07/18/2025 6 :38 AM EST ETHANOL STAT 07/18/2025 6:38 AM EST COMPREHENSIVE METABOLIC PANEL STAT 07/18/2025 6:38 AM EST CBC AND DIFFERENTIAL STAT 07/18/2025 6:38 AM EST METHADONE SCREEN, URINE STAT 07/18/2025 6:28 AM EST PHENCYCLIDINE, URINE STAT 07/18/2025 6:28 AM EST BUPRENORPHINE SCREEN, URINE STAT 07/18/2025 6:28 AM EST DRUG ABUSE SCREEN 8A PANEL, URINE STAT 07/18/2025 6:28 AM EST XR CHEST 2 VIEWS STAT 06/14/2025 4:26 [...] EDT from Last 3 Months Results * (ABNORMAL) CBC auto differential (07/18/2025 6:38 AM EST) Only the most recent of2 resultswithin the time period is included. [facility] WBC 7.1 4.8 - 10.8 K/mcL LAB HEMETOLOGY METHOD 07/18/2025 7:12 AM [facility] RBC 5.40 4.50 - 5.50 M/mcL LAB HEMETOLOGY METHOD 07/18/2025 7:12 AM [facility] Hemoglobin 14.0 13.5 - 17.5 g/dL LAB HEMETOLOGY METHOD 07/18/2025 7:12 AM [facility] Hematocrit 42.9 42.0 - 54.0 % LAB HEMETOLOGY METHOD 07/18/2025 7:12 AM [facility] MCV 79.3 79.0 - 98.0 FL LAB HEMETOLOGY METHOD 07/18/2025 7:12 AM [facility] MCH 25.9(L) 27.0 - 32.0 pcg LAB HEMETOLOGY METHOD 07/18/2025 7:12 AM [facility] MCHC 32.6 32.0 - 37.0 g/dL LAB HEMETOLOGY METHOD 07/18/2025 7:12 AM [facility] RDW 16.3(H) 11.0 - 15.0 % LAB HEMETOLOGY METHOD 07/18/2025 7:12 AM [facility] Platelets 246 130 - 400 K/mcL LAB HEMETOLOGY METHOD 07/18/2025 7:12 AM [facility] MPV 10.8 7.0 - 11.0 FL LAB HEMETOLOGY METHOD 07/18/2025 7:12 AM [facility] NRBC 0.0 <1.0 % LAB HEMETOLOGY METHOD 07/18/2025 7:12 AM [facility] NRBC Absolute 0.00 <0.10 K/mcL LAB HEMETOLOGY METHOD 07/18/2025 7:12 AM [facility] Neutrophils Relative 68.9 % LAB HEMETOLOGY METHOD 07/18/2025 7:12 AM [facility] Lymphocytes Relative 22.8 % LAB HEMETOLOGY METHOD 07/18/2025 7:12 AM [facility] Monocytes Relative 5.9 % LAB HEMETOLOGY METHOD 07/18/2025 7:12 AM [facility] Eosinophils Relative 1.7 % LAB HEMETOLOGY METHOD 07/18/2025 7:12 AM [facility] Basophils Relative 0.4 % LAB HEMETOLOGY METHOD 07/18/2025 7:12 AM [facility] Immature Granulocytes Relative 0.3 % LAB HEMETOLOGY METHOD 07/18/2025 7:12 AM [facility] Neutrophils Absolute 4.88 1.50 - 7.00 K/mcL LAB HEMETOLOGY METHOD 07/18/2025 7:12 AM [facility] Lymphocytes Absolute 1.62 1.00 - 5.00 K/mcL LAB HEMETOLOGY METHOD 07/18/2025 7:12 AM [facility] Monocytes Absolute 0.42 0.20 - 1.00 K/mcL LAB HEMETOLOGY METHOD 07/18/2025 7:12 AM [facility] Eosinophils Absolute 0.12 0.00 - 0.50 K/mcL LAB HEMETOLOGY METHOD 07/18/2025 7:12 AM [facility] Basophils Absolute 0.03 0.00 - 0.20 K/mcL LAB HEMETOLOGY METHOD 07/18/2025 7:12 AM [facility] Immature Granulocytes Absolute 0.02 0.00 - 0.03 K/mcL LAB HEMETOLOGY METHOD 07/18/2025 7:12 AM [facility] Blood Venous blood specimen / Unknown Venipuncture / Unknown 07/18/2025 6:38 AM EST 07/18/2025 7:08 AM EST us Divya Spring MD LAB BLOOD ORDERABLES Final Resul t Performing Organization Address [facility] Co de Phone Number [facility] [address] [place] [address], * Ethanol (07/18/2025 6:38 AM EST) Only the most recent of2 resultswithin the time period is included. Ethanol Level <3 0 - 10 mg/dL 07/18/2025 7:40 AM EST [facility] Blood Venous blood specimen / Unknown Venipuncture / Unknown 07/18/2025 6:38 AM EST 07/18/2025 7:08 AM EST us Divya Spring MD LAB BLOOD ORDERABLES Final Resul t Performing Organization Address [facility] de Phone Number [facility] [address] [place] [address], * (ABNORMAL) Acetaminophen level (07/18/2025 6:38 AM EST) Only the most recent of2 resultswithin the time period is included. Acetaminophen Level <2.0(L) 10.0 - 30.0 mcg/mL 07/18/2025 7:36 AM EST [facility] Blood Venous blood specimen / Unknown Venipuncture / Unknown 07/18/2025 6:38 AM EST 07/18/2025 7:08 AM EST us Divya Spring MD LAB BLOOD ORDERABLES Final Resul t Performing Organization Address [facility] de Phone Number [facility] [address] [place] [address], * Salicylate level (07/18/2025 6:38 AM EST) Only the most recent of2 resultswithin the time period is included. Pathologist [facility] Salicylate Level <3.0 2.0 - 29.0 mg/dL 07/18/2025 7:40 AM [facility] Blood Venous blood specimen / Unknown Venipuncture / Unknown 07/18/2025 6:38 AM EST 07/18/2025 7:08 AM EST us Divya Spring MD LAB BLOOD ORDERABLES Final Resul t [facility] [address] [place] [address], * (ABNORMAL) Comprehensive metabolic panel (07/18/2025 6:38 AM EST) Only the most recent of2 resultswithin the time period is included. [facility] Sodium 141 133 - 145 mmol/L 07/18/2025 7:36 AM [facility] Potassium 4.1 3.5 - 5.5 mmol/L 07/18/2025 7:36 AM [facility] Chloride 106 96 - 110 mmol/L 07/18/2025 7:36 AM [facility] CO2 23 21 - 32 mmol/L 07/18/2025 7:36 AM [facility] Anion Gap 12(H) 3 - 11 07/18/2025 7:36 AM [facility] Glucose 145(H) 70 - 100 mg/dL 07/18/2025 7:36 AM [facility] BUN 14 5 - 25 mg/dL 07/18/2025 7:36 AM [facility] Creatinine 0.70 0.70 - 1.30 mg/dL 07/18/2025 7:36 AM [facility] eGFR 118 >=60 mL/min/1. 73m2 07/18/2025 7:36 AM [facility] Comment:Calculation based on the Chronic Kidney Disease Epidemiology Collaboration (CKD-EPI) equation refit without adjustment for race. BUN/Creatinine Ratio 20.0 07/18/2025 7:36 AM [facility] Calcium 9.3 8.5 - 10.5 mg/dL 07/18/2025 7:36 AM [facility] AST (SGOT) 33 10 - 42 unit/L 07/18/2025 7:36 AM [facility] ALT (SGPT) 38 10 - 60 unit/L 07/18/2025 7:36 AM [facility] Alkaline Phosphatase 124(H) 42 - 121 unit/L 07/18/2025 7:36 AM [facility] Total Protein 6.8 6.0 - 8.0 g/dL 07/18/2025 7:36 AM [facility] Albumin 4.2 3.2 - 5.0 g/dL 07/18/2025 7:36 AM [facility] Total Bilirubin 0.4 0.0 - 1.4 mg/dL 07/18/2025 7:36 AM [facility] Blood Venous blood specimen / Unknown Venipuncture / Unknown 07/18/2025 6:38 AM EST 07/18/2025 7:08 AM EST us Divya Spring MD LAB BLOOD ORDERABLES Final Resul t [facility] [address] [place] [address], * (ABNORMAL) Drug abuse screen 8a panel, urine (07/18/2025 6:28 AM EST) Only the most recent of2 resultswithin the time period is included. Amphetamine Screen, Ur Negative Negative 07/18/2025 7:05 AM [facility] Comment:Certain OTC medicati ons containing ephedrine, phenylephrine, pseudoephedrine and phenylpropanolamine can cause false positive results. Barbiturate Screen, Ur Negative Negative 07/18/2025 7:05 AM [facility] Benzodiazepine Screen, Ur Negative Negative 07/18/2025 7:05 AM [facility] Cocaine Screen, Ur Positive(A ) Negative 07/18/2025 7:05 AM [facility] Opiate Screen, Ur Negative Negative 025 7:05 AM [facility] Cannabinoid (THC) Screen, Ur Positive(A ) Negative 07/18/2025 7:05 AM [facility] Comment:Specimens from patie nts taking pantoprazole sodium (Protonix) have been shown to produce false positive results. Oxycodone Screen, Ur Negative Negative 06/24 7:05 AM [facility] Fentanyl, Ur Negative Negative 07/18/2025 7:05 AM [facility] Urine Urine specimen obtained by clean catch procedure / Unknown Non-blood Collection / Unknown 07/18/2025 6:28 AM EST 07/18/2025 6:39 AM EST [facility] - 07/18/2025 7:05 AM [...] MD LAB URINE ORDERABLES Final Resul t [facility] [address] [place] [address], [place] [phone] * Buprenorphine screen, urine (07/18/2025 6:28 AM EST) Only the most recent of2 resultswithin the time period is included. Buprenorphine Screen Urine Negative Negative 07/18/2025 7:04 AM EST [facility] Urine Urine specimen obtained by clean catch procedure / Unknown Non-blood Collection / Unknown 07/18/2025 6:28 AM EST 07/18/2025 6:39 AM EST Narrative [facility] - 07/18/2025 7:04 AM EST Assay cutoff 5 ng/mL Semi-quantitative assay for screening purposes only. Unconfirmed screening result should not be used for non-medical purposes. *ALTERNATE METHOD CONFIRMATION DONE UPON REQUEST ONLY* us Divya Spring MD LAB URINE ORDERABLES Final Resul t Performing Organization Address City/[facility]/ZIP Co de Phone Number [facility] [address] [place] [address], [place] [phone] * Methadone, urine (07/18/2025 6:28 AM EST) Only the most recent of2 resultswithin the time period is included. [facility] Methadone Screen, Urine Negative Negative 07/18/2025 7:05 AM EST [facility] Comment: Assay cutoff 300 [...] ORDERABLES Final Resul t Performing Organization Address City/[facility]/ZIP Co de Phone Number [facility] [address] [place] [address], [place] [phone] * Phencyclidine, urine (07/18/2025 6:28 AM EST) Only the most recent of2 resultswithin the time period is included. PCP Jamie, Ur Negative Negative 07/18/2025 7:05 AM EST [facility] Comment: Assay cutoff 25 ng/mL Semi-quantitative assay for screening purposes only. Unconfirmed screening result should not be used for non-medical purposes. *ALTERNATE METHOD CONFIRMATION DONE UPON REQUEST ONLY* Urine Urine specimen obtained by clean catch procedure / Unknown Non-blood Collection / Unknown 07/18/2025 6:28 AM EST 07/18/2025 6:39 AM EST us Divya Spring MD LAB URINE ORDERABLES Final Resul t [facility] [address] [place] [address], * XR Chest 2 Views (06/14/2025 4:26 AM EDT) Only the most recent of2 resultswithin the time period is included. Anatomical Region Laterality Modality Body Radiographic Cee ging 06/14/2025 8:18 AM EDT Impressions 06/14/2025 8:19 AM EDT Somewhat limited depth of inspiration. No acute pulmonary disease. No change since 06/09/2025. Code 78567 -------- FINAL REPORT -------- Dictated By: Karan Kendrick Dictated Date: 06/14/2025 08:18 ET Assigned Physician: Karan Kendrick Reviewed and Electronically Signed By: Karan Kendrick Signed Date: 06/14/2025 08:19 ET Workstation ID: [id number] Transcribed By: Self Edit Transcribed Date: 06/14/2025 [...] as also seen on the prior study /18/2025. The bony structures are of normal appearance. The cardiac andmediastinal contours are within normal limits. The lungs and costophrenicangles are clear. IMPRESSION: Somewhat limited depth of inspiration. No acute pulmonary disease. Nochange since 06/09/2025. Code 34846 -------- FINAL REPORT -------- Dictated By: Karan Kendrick Dictated Date: 06/14/2025 08:18 ET Assigned Physician: Karan Kendrick Reviewed and Electronically Signed By: Karan Kendrick Signed Date: 06/14/2025 08:19 ET Workstation ID: [id number] Transcribed By: Self Edit Transcribed Date: 06/14/2025 08:18 ET us Chauncey Flores MD IMG XR PROCEDURES Final Result * (ABNORMAL) POCT Glucose, blood (06/12/2025 8:32 AM EDT) Only the most recent of3 resultswithin the time period is included. Glucose POCT 123(H) 70 - 100 mg/dL 06/12/2025 8:32 AM EDT [facility] Blood Capillary blood specimen / Unknown 06/12/2025 8:32 AM EDT 06/12/2025 8:33 AM EDT us Vamshi Tabares MD LAB POINT OF CARE TEST DOCKED DEVICE UNSOLICITED RESULTS Final Result [facility] [address] [place] [address], [place] [phone] * (ABNORMAL) Respiratory virus panel molecular study (06/09/2025 6:37 AM EDT) Pathologist [facility] Adenovirus Detection by PCR Not Detected Not Detected LAB MICROBIOLOGY METHOD 06/09/2025 8:04 AM EDT [facility] Influenza A PCR Not Detected Not Detected LAB MICROBIOLOGY METHOD 06/09/2025 8:04 AM EDT [facility] Influenza B PCR Not Detected Not Detected LAB MICROBIOLOGY METHOD 06/09/2025 8:04 AM EDT [facility] Coronavirus 229E Not Detected Not Detected LAB MICROBIOLOGY METHOD 06/09/2025 8:04 AM EDT [facility] Coronavirus HKU1 Not Detected Not Detected LAB MICROBIOLOGY METHOD 06/09/2025 8:04 AM EDT [facility] Coronavirus OC43 Not Detected Not Detected LAB MICROBIOLOGY METHOD 06/09/2025 8:04 AM EDT [facility] Coronavirus NL63 Not Detected Not Detected LAB MICROBIOLOGY METHOD 06/09/2025 8:04 AM EDT [facility] Parainfluenza Virus 1 Not Detected Not Detected LAB MICROBIOLOGY METHOD 06/09/2025 8:04 AM EDT [facility] Parainfluenza Virus 2 Not Detected Not Detected LAB MICROBIOLOGY METHOD 06/09/2025 8:04 AM EDT [facility] Parainfluenza Virus 3 Not Detected Not Detected LAB MICROBIOLOGY METHOD 06/09/2025 8:04 AM EDT [facility] Parainfluenza Virus 4 Not Detected Not Detected LAB MICROBIOLOGY METHOD 06/09/2025 8:04 AM EDT [facility] RSV PCR Not Detected Not Detected LAB MICROBIOLOGY METHOD 06/09/2025 8:04 AM EDT [facility] Human Metapneumovirus A and B Not Detected Not Detected LAB MICROBIOLOGY METHOD 06/09/2025 8:04 AM EDT [facility] Rhinovirus/Entero virus Detected(A ) Not Detected LAB MICROBIOLOGY METHOD 06/09/2025 8:04 AM EDT [facility] Bordetella pertussis Not Detected Not Detected LAB MICROBIOLOGY METHOD 06/09/2025 8:04 AM EDT [facility] Bordetella parapertussis Not Detected Not Detected LAB MICROBIOLOGY METHOD 06/09/2025 8:04 AM EDT [facility] Mycoplasma pneumo by PCR Not Detected Not Detected LAB MICROBIOLOGY METHOD 06/09/2025 8:04 AM EDT [facility] Chlamydia pneumoniae Not Detected Not Detected LAB MICROBIOLOGY METHOD 06/09/2025 8:04 AM EDT [facility] SARS COV-2 Not Detected Not Detected LAB MICROBIOLOGY METHOD 06/09/2025 8:04 AM EDT [facility] Swab Both anterior nares / Unknown Non-blood Collection / Unknown 06/09/2025 6:37 AM EDT 06/09/2025 6:53 AM EDT Narrative [facility] - 06/09/2025 8:04 AM EDT Testing was performed using the [employer] Respiratory Pathogen PCR Assay. All results must [...] MICROBIOLOGY - GENERAL ORD ERABLES Final Result [facility] [address] [place] [address], * CT Cervical Spine wo Contrast (06/04/2025 [...] Lowe MD on 06/04/2025 19:36:03 Guerita BAH [facility] CT PROCEDURES Final Result * CT Head [...] Lowe MD on 06/04/2025 19:30:[address] PROCEDURES Final Result * XR Hip [...] Signed Date: 05/03/2025 10:46 ET Workstation ID: [id number] Transcribed By: Self Edit Transcribed Date: 05/03/2025 [...] Signed Date: 05/03/2025 10:46 ET Workstation ID: [id number] Transcribed By: Self Edit Transcribed Date: 05/03/2025 [...] currently active code status orders. Care Teams Pasta Press Operator Relationship Specialty Start Date End Date Physician, No Pcp PCP - General 07/18/25
--- OUTSIDE RECORDS SUMMARY | 2025-07-18 18:00 | XMS_ITS | Clinical Summary ---
Author Organization [facility] Address [address] [place] [address] Care Team Providers Care Business Development Specialist Name Role Phone Rosa Sepulveda NP Primary Care Provider +1- [phone] Allergies Active Allergy Reactions Criticality Noted Date [...] A & B MEDICAID OUT OF STATE [facility] Advance Directives * Full Code (Latest Code Status on File) Date Activated Date Inactivated Comments 06/19/2019 11:45 AM 07/11/2019 11:50 AM Care Teams Business Development Specialist Relationship Specialty Start Date End Date Rosa Sepulveda NP [address] [place] [address] PCP - General 05/09/19
--- OUTSIDE RECORDS SUMMARY | 2025-07-18 18:00 | XMS_ITS | Encounter Summary ---
Author Organization [facility] Address [address] [place] [address] Care Team Providers Care Disintegrator Operator Name Role Phone Rosa Sepulveda NP Primary Care Provider +1- [phone] Encounter Details Date Type Department Care Team (Late st Contact Info) Description 07/08/2020 [facility] Plastic & Reconstructive Surgery [address] [place] [address] David Corrales MD [address] [place] [id number] Social History Tobacco Use Types Packs/Day Years [...] on filedocumented in this encounter Care Teams Disintegrator Operator Relationship Specialty Start Date End Date Rosa Sepulveda NP [address] [place] [address] PCP - General 05/09/19 documented as of this encounter
--- OUTSIDE RECORDS SUMMARY | 2025-07-18 18:00 | XMS_ITS | Encounter Summary ---
Author Organization [facility] Address [address] [place] [address] Care Team Providers Care Studio Hand Name Role Phone Rosa Sepulveda NP Primary Care Provider +1- [phone] Encounter Details Date Type Department Care Team ([facility] st Contact Info) Description 07/23/2020 Scanned Document [facility] Plastic & Reconstructive Surgery [address] [place] [phone] David Corrales MD [address] [place] [address] Social History Tobacco Use Types Packs/Day Years [...] on filedocumented in this encounter Care Teams Studio Hand Relationship Specialty Start Date End Date Rosa Sepulveda NP [address] [place] [address] PCP - General 05/09/19 documented as of this encounter
--- OUTSIDE RECORDS SUMMARY | 2025-07-18 18:01 | XMS_ITS | Clinical Summary ---
Author Organization [facility] Address [address] [place] [address] Phone Care Team Providers Care Jewelry Sales Name Role Phone Rosa Sepulveda SEAM STAY STITCHER Primary Care Provider +1- [phone] Allergies Active Allergy Reactions Criticality Noted Date Comments Baclofen Hives Medium 06/20/2019 Lidocaine 04/02/2020 Topical,states steward his skin off Lwt-Utindjmdufl-Jkaxpqdtzuv en 09/13/2019 Diclofenac Sodium 02/08/2020 Topical,states steward [...] 06/02/2025 12:37 PM EDT Emergency [facility] [address] [place] [address] Jaiden Govea MD Devries, MD Saeed Martinez, Sharda Drake MD Discharge Disposition: Home or Self Care 06/01/2025 Procedure Pass [facility], Ct Scan [address] [address] 06/01/2025 Procedure Pass [facility], [address] [address] from Last 3 Months Social History Tobacco [...] (LEFT) (06/02/2025 6:59 AM EDT) MGB IMG FISH TENDER COMMENT Erosive changes involving the third digit proximal phalanx with widening of the joint may represent septic arthritis. Further imaging with MRI recommended. [facility] Anatomical Region Laterality Modality Foot Left Computed Radiogr aphy 06/02/2025 7:20 AM EDT Impressions 06/02/2025 7:47 AM EDT Erosive changes involving the third digit proximal phalanx with widening of the joint may represent septic arthritis. Further imaging with MRI recommended. A clinically significant result was initiated on 06/02/2025 7:47 AM, Message ID [id number]. ATTESTATION: Abimbola Frausto as teaching physician, have [...] was initiated on 06/02/2025 7:47 AM,Message ID [id number]. ATTESTATION: Abimbola Frausto as teaching physician, have [...] HS Gen5 14 0 - 14 ng/L [facility] Blood 06/01/2025 2:30 PM EDT 06/01/2025 2:37 PM EDT Jaiden Govea MD LAB BLOOD BKR ORDERABLES Final R esult [address] [address] * XR CHEST 1 VIEW (06/01/2025 2:25 [...] clinician's provided indication for this examination in [facility]:Pain; Wide mediastinum on AP, COMPARISON: XR [...] clinician's provided indication for this examination in [facility]: * Mental status change, unknown cause [...] of the cervical spine. Jaiden Govea MD [facility] CT XSPECIALTY ORDERABLES Fin al Result * [...] clinician's provided indication for this examination in [facility]: * Mental status change, unknown cause [...] clinician's provided indication for this examination in [facility]: *Mental status change, unknown cause TECHNIQUE: [...] clinician's provided indication for this examination in [facility]: Respiratory failure COMPARISON: None FINDINGS: Devices/Tubes/Lines: None. Lungs: There are low lung volumes with mild prominence of interstitium likely related to technique. No definite consolidation. Pleura: No pleural effusion or pneumothorax. Heart/Mediastinum: Widening of the cardiomediastinal silhouette Bones/Soft Tissues: No significant abnormality. Procedure Note Pratima Garcia MD - 06/01/2025 XR CHEST PORTABLE Referring clinician's provided indication for this examination in [facility]:Respiratory failure COMPARISON: None FINDINGS: Devices/Tubes/Lines: None. [...] Glucose, POCT 171(H) 70 - 100 mg/dL [facility] 06/01/2025 6:49 AM EDT 06/01/2025 6:54 AM EDT us Jaiden Govea MD POINT OF CARE TEST ORDERABLES Fi nal Result [address] [address] * ECG 12-LEAD (06/01/2025 6:48 AM EDT) Ventricular Rate EKG/MIN 98 BPM [facility] Atrial Rate 98 BPM [facility] WY Interval 158 ms [facility] QRS Duration 84 ms [facility] QT Interval 348 ms [facility] QTC Interval 444 ms [facility] P [place] 52 degrees [facility] R Wave [place] -14 degrees [facility] T Wave [place] 37 degrees [facility] 06/01/2025 6:48 AM EDT [...] 6:42 AM EDT) ETHANOL 419(H) <10 mg/dL [facility] Blood 06/01/2025 6:42 AM EDT 06/01/2025 7:00 AM EDT us Jaiden Govea MD LAB BLOOD BKR ORDERABLES Final R esult Performing Organization Address City/[facility]/ZIP Co de Phone Number [address] [address] * (ABNORMAL) LFTs (hepatic panel) (06/01/2025 6:42 AM EDT) ALKALINE PHOSPHATASE 120(H) 39 - 117 U/L [facility] TOTAL BILIRUBIN 0.5 0.0 - 1.2 mg/dL [facility] DIRECT BILIRUBIN 0.1 0.0 - 0.2 mg/dL [facility] Bilirubin (Indirect) NOT CALCULATED 0 - 1.5 mg/dL [facility] AST 45(H) 0 - 37 U/L [facility] ALT 38 0 - 40 U/L [facility] TOTAL PROTEIN 8.1(H) 6.5 - 8.0 g/dL [facility] ALBUMIN 4.8 3.9 - 4.8 g/dL [facility] GLOBULIN 3.3 1 - 4.8 g/dL [facility] A/G Ratio 1.45 1.00 - 4.80 RATIO [facility] Blood 06/01/2025 6:42 AM EDT 06/01/2025 7:00 AM EDT us Jaiden Govea MD LAB BLOOD BKR ORDERABLES Final R esult [address] [address] * (ABNORMAL) PT-INR (06/01/2025 6:42 AM EDT) PT 14.0(H) 10.2 - 12.9 sec [facility] INR 1.1 0.9 - 1.1 [facility] Comment:Therapeutic range fo r oral Vitamin K antagonists: 2.0-3.5 Blood 06/01/2025 6:42 AM EDT 06/01/2025 7:00 AM EDT us Jaiden Govea MD LAB BLOOD BKR ORDERABLES Final R esult [facility] [address] [place], [place] [id number] * (ABNORMAL) CBC and differential (06/01/2025 6:42 AM EDT) WBC 12.83(H) 4.00 - 11.00 K/uL [facility] RBC 5.96(H) 4.50 - 5.90 M/uL [facility] HGB 15.2 13.5 - 17.5 g/dL [facility] HCT 48.0 41.0 - 53.0 % [facility] PLT 325 150 - 450 K/uL [facility] MCV 80.5 80.0 - 100.0 fL [facility] MCH 25.5(L) 27.0 - 31.0 pg [facility] MCHC 31.7(L) 32.0 - 36.0 g/dL [facility] RDW 15.0(H) 11.5 - 14.5 % [facility] MPV 10.7 8.4 - 12.0 fL [facility] NRBC 0.00 0.00 /100 WBCs [facility] ABSOLUTE NRBC 0.00 0.00 K/uL [facility] DIFF METHOD Manual [facility] TOTAL CELLS COUNTED 100 [facility] NEUTS 56.0 48.0 - 76.0 % [facility] BANDS 3.0 0 - 10 % [facility] LYMPHS 33.0 18.0 - 41.0 % [facility] Comment:Few atypical Lymphs seen. MONOS 3.0(L) 4.0 - 11.0 % [facility] EOS 1.0 0.0 - 5.0 % [facility] BASOS 2.0(H) 0.0 - 1.5 % [facility] MYELOS 1.0(H) 0 % [facility] METAS 1.0(H) 0 % [facility] ABSOLUTE NEUTS 7.57 1.92 - 7.60 K/uL [facility] ABSOLUTE LYMPHS 4.23(H) 0.72 - 4.10 K/uL [facility] ABSOLUTE MONOS 0.38 0.16 - 1.10 K/uL [facility] ABSOLUTE EOS 0.13 0.00 - 0.50 K/uL [facility] ABSOLUTE BASOS 0.26(H) 0.00 - 0.15 K/uL [facility] ABSOLUTE MYELOS 0.13 K/uL [facility] ABSOLUTE METAS 0.13 K/uL [facility] Blood 06/01/2025 6:42 AM EDT 06/01/2025 7:00 AM EDT us Jaiden Govea MD LAB BLOOD BKR ORDERABLES Final R esult [address] [address] * Magnesium (06/01/2025 6:42 AM EDT) MAGNESIUM 2.1 1.6 - 2.6 mg/dL [facility] Blood 06/01/2025 6:42 AM EDT 06/01/2025 7:00 AM EDT us Jaiden Govea MD LAB BLOOD BKR ORDERABLES Final R esult [address] [address] * Lipase (06/01/2025 6:42 AM EDT) LIPASE 58 16 - 63 U/L [facility] 06/01/2025 6:42 AM EDT 06/01/2025 7:00 AM EDT us Jaiden Govea MD LAB BLOOD BKR ORDERABLES Final R esult [address] [address] * (ABNORMAL) Venous blood gas (06/01/2025 6:42 AM EDT) pH, Venous 7.25(L) 7.31 - 7.41 [facility] PCO2, Venous 38.80(L) 41.00 - 51.00 mmHg [facility] PO2, Venous 111.40(H) 35.00 - 40.00 mmHg [facility] HCO3, Venous 17(L) 23 - 28 mmol/L [facility] BASE DEFICIT VENOUS 9.7(H) 0.0 - 2.0 mmol/L [facility] SO2, VENOUS 97.10(H) 60.00 - 80.00 % [facility] FO2HB, VENOUS 94.00(H) 71.00 - 74.00 % [facility] Carboxy Hgb 3.10(H) 0 - 1.50 % [facility] MetHgb % 0.10 0 - 1.50 % [facility] Blood 06/01/2025 6:42 AM EDT 06/01/2025 6:59 AM EDT us Jaiden Govea MD LAB BLOOD BKR ORDERABLES Final R esult [address] [address] * (ABNORMAL) Acetaminophen level (06/01/2025 6:42 AM EDT) ACETAMINOPHEN <5.0(L) 15.0 - 30.0 ug/mL [facility] Blood 06/01/2025 6:42 AM EDT 06/01/2025 7:00 AM EDT us Jaiden Govea MD LAB BLOOD BKR ORDERABLES Final R esult [address] [address] * (ABNORMAL) Salicylates (06/01/2025 6:42 AM EDT) SALICYLATES <0.3(L) 2.8 - 19.9 mg/dL [facility] Blood 06/01/2025 6:42 AM EDT 06/01/2025 7:00 AM EDT us Jaiden Govea MD LAB BLOOD BKR ORDERABLES Final R esult Performing Organization Address City/[facility]/ZIP Co de Phone Number [address] [address] * (ABNORMAL) Basic metabolic panel (06/01/2025 6:42 AM EDT) SODIUM 140 133 - 146 mmol/L [facility] CHLORIDE 102 96 - 108 mmol/L [facility] POTASSIUM 3.4 3.3 - 5.1 mmol/L [facility] CO2 18(L) 21 - 35 mmol/L [facility] BUN 13 6 - 19 mg/dL [facility] CREATININE 0.60 0.5 - 1.5 mg/dL [facility] GLUCOSE 177(H) 70 - 99 mg/dL [facility] CALCIUM 9.3 8.4 - 10.3 mg/dL [facility] EGFR >120 >59 mL/min/1.7 3m2 [facility] Comment:Estimated glomerular filtration rate calculated using the CKD-EPI refit equation. ANION GAP 23(H) 10 - 20 mmol/L [facility] Blood 06/01/2025 6:42 AM EDT 06/01/2025 7:00 AM EDT us Jaiden Govea MD LAB BLOOD BKR ORDERABLES Final R esult Performing Organization Address City/[facility] Co de Phone Number [address] [address] from Last 3 Months Insurance MEDICARE PART A & B [facility] MEDICARE PART A & B MEDICARE PART A & B [facility] B [facility] MEDICARE PART A & B Member Subscriber Plan / Payer ( fective 2004-Present) Name:Jean Roldan Member ID:[id number] Relation to Subscriber:Self Name:Jean Roldan Subscriber ID:[id number] Payer ID:[id number] Group ID:Not on file Type:Medicare Address: [facility] Modify [facility] [address] [place], [place] [id number] [place], [place] [address]HEALTH MEDICARE PART A & B Member Subscriber Plan / Payer ( fective 2004-Present) Name:Jean Roldan Member ID:[id number] Relation to Subscriber:Self Name:Jean Roldan Subscriber ID:[id number] Payer ID:[id number] Group ID:Not on file Type:Medicare Address: [facility] Modify [facility] [address] [place] [address]ALTH MEDICARE PART A & B [place] MEDICARE PART A & B [facility] PART A & B [facility] Care Teams Jewelry Sales Relationship Specialty Start Date End Date Rosa Sepulveda NP [address] [place] [address] PCP - General Family Medicine 09/13/19 Additional Source Comments The information contained in this document represents components of the legal health record. It is not the complete legal health record.[facility]
--- OUTSIDE RECORDS SUMMARY | 2025-07-18 18:01 | XMS_ITS | Encounter Summary ---
Author Organization [facility] Address [address] [place] [address] Care Team Providers Care Oracle Software Engineer Name Role Phone Rosa Sepulveda NP Primary Care Provider +1- [phone] Encounter Details Date Type Department Care Team (Late st Contact Info) Description 07/17/2019 Scanned Document [facility] [place] Plastic & Reconstructive Surgery [address] [place] [phone] David Corrales MD [address] [place] [address] Social History Tobacco Use Types Packs/Day Years [...] documented as of this encounter Care Teams Oracle Software Engineer Relationship Specialty Start Date End Date Rosa Sepulveda NP [address] [place] [address] PCP - General 05/09/19 documented as of this encounter
--- OUTSIDE RECORDS SUMMARY | 2025-07-18 18:01 | XMS_ITS | Data Portability ---
Author Organization [place] [facility] Address [address] [place] [address] Care Team Providers Care Equipment Planner Name Role Phone [facility] Primary Care Provider Assessment Encounter Date Assessment [...] I have accessed patient records on the [employer]. This information was pertinent in [...] By Organization Details Last Modified Time 09/03/2019 [id number] YOU WERE SEEN FO R WRIST FRACTURE. WE APPLIED WRIST BRACE. PLEASE, KEEP YOUR ARM ELEVATED, APPLY ICE 20 MIN ON/OFF. PLEASE, FOLLOW UP WITH ORTHO SCHEDULED. Thank you for your visit with [facility] today. We cannot always find the exact [...] in your condition between 8am-10pm, please call [facility] at [phone] to help navigate your care. Thank you for your visit with [facility] today. You do not appear to have [...] in your condition between 8am-10pm, please call [facility] at [phone] to help navigate your care. zoey Not available 09/03/2019 13:25:38 Reason for Referral None Reported. Medical Equipment None Reported. Allergies Allergen ID Allergen Name Allergen Category Reaction Reaction Severity Criticality Documentation Date Start Date Code Code System Note Provider Name and Address Organization Details Recorded Time 65929 baclofen medicatio n Not available Not available Not available 09/03/2019 1292 RxNorm OLVIN SINGLETARY [address] [facility] [place], [address], [place] [facility] 13:07:35 [...] Never Smoker OLVIN SINGLETARY [address], [place], [address], [place] [facility] 09/03/2019 13:30:41 How Many [...] Response Diabetes N Coronary Artery Disease N High Cholesterol N Cancer N Pulmonary Embolism N Stroke N Hypertension N Asthma N COPD N Depression Y Kidney Disease N Past Encounters Encounter ID Performer Location Encounter Start Date Encounter Closed Date Diagnosis/Indication Diagnosis SNOMED-CT Code Diagnosis ICD10 Code Diagnosis IMO Codes Diagnosis Note [id number] OLVIN SINGLETARY [facility] [address] [place] [address] 09/03/2019 13:05:13 09/05/2019 20:30:49 Pain in upper limb 137006667 M79.601 Traumatic injury 7429738 04 T14.90XA Health Concerns Section Related Observation LastModified by Organization Detai ls LastModified Time None Recorded Concern Status LastModified by Organization Details LastModified Time None Recorded Advance Directives Directive None Recorded Payers Insurance Date Sequence Insurance Name Policy Number Policy Marinelli Covered Member ID Marinelli Member ID Guarantor Name 09/05/2019 2 [place] [facility] Jean Roldan [id number] Jean Roldan 09/02/2019 1 *SELF PAY* Jean Roldan [id number] Jean Roldan 09/03/2019 1 MEDICARE B-[place]: [employer] SERVICES Jean Roldan [id number] Jean Roldan Notes Date Note Type Note [...] affected extremity. OLVIN SINGLETARY [address], [place], [address], [place] [facility] 09/03/2019 13:49:15
--- OUTSIDE RECORDS SUMMARY | 2025-07-18 18:01 | XMS_ITS | Encounter Summary ---
Author Organization [facility] Address [address] [place] [address] Care Team Providers Care Product Marketing Specialist Name Role Phone Rosa Sepulveda INTEGRITY ANALYST Primary Care Provider +1- [phone] Encounter Details Date Type Department Care Team (Late st Contact Info) Description 04/11/2020 Scanned Document [facility] Plastic & Reconstructive Surgery [address] [place] [address] David Corrales MD [address] [place] [address] Social History Tobacco Use Types Packs/Day Years [...] on filedocumented in this encounter Care Teams Product Marketing Specialist Relationship Specialty Start Date End Date Rosa Sepulveda NP [address] [place] [address] PCP - General 05/09/19 documented as of this encounter
--- OUTSIDE RECORDS SUMMARY | 2025-07-18 18:01 | XMS_ITS | Encounter Summary ---
Author Organization [facility] Address [address] [place] [address] Phone Care Team Providers Care Pulping Machine Operator Name Role Phone Rosa Sepulveda NP Primary Care Provider +1- [phone] Encounter Details Date Type Department Care Team (Late st Contact Info) Description 05/27/2020 Procedure Pass [place] Admitting Dept - Virtual Department [address] [place] [address] Social History Tobacco Use Types Packs/Day Years [...] on filedocumented in this encounter Care Teams Pulping Machine Operator Relationship Specialty Start Date End Date Rosa Sepulveda NP [address] [place] [address] PCP - General Family Medicine 09/13/19 documented as of this encounter Additional Source Comments The information contained in this document represents components of the legal health record. It is not the complete legal health record.[facility]
--- OUTSIDE RECORDS SUMMARY | 2025-07-18 18:01 | XMS_ITS | Encounter Summary ---
Author Organization [facility] Address [address] [place] [address] Care Team Providers Care Cover Stitch Machine Operator Name Role Phone Rosa Sepulveda SLOT EDITOR Primary Care Provider +1- [phone] Encounter Details Date Type Department Care Team (Late st Contact Info) Description 04/11/2020 Scanned Document [facility] Plastic & Reconstructive Surgery [address] [place] [address] David Corrales MD [address] [place] [address] Social History Tobacco Use Types Packs/Day Years [...] on filedocumented in this encounter Care Teams Cover Stitch Machine Operator Relationship Specialty Start Date End Date Rosa Sepulveda NP [address] [place] [address] PCP - General 05/09/19 documented as of this encounter
--- OUTSIDE RECORDS SUMMARY | 2025-07-18 18:01 | XMS_ITS | Encounter Summary ---
Author Organization [facility] Address [address] [facility] [address] [place] [address] Phone Care Team Providers Care Edge Trimmer Mechanic Name Role Phone Rosa Sepulveda HOME HEALTH ATTENDANT Primary Care Provider +1- [phone] Encounter Details Date Type Department Care Team (Late st Contact Info) Description 06/01/2025 Procedure Pass [facility], Ct Scan - [facility] [address] [place] [address] Social History Tobacco Use Types Packs/Day Years [...] 2:31 PM EDT Pat Campo RN * [place] Suicide Severity Rating Scale (Screener/Recent Self-Report) Question [...] Month) No 06/01/2025 2:31 PM EDT Pat aCmpo RN 5. Active Suicidal Ideation with Specific Plan and Intent (Past 1 Month) No 06/01/2025 2:31 PM EDT [place], E mma, RN 6. Suicidal Behavior (Lifetime) No 5 2:31 PM EDT Pat Campo RN documented as of this encounter Plan of Treatment Not on file documented as of this encounter Visit Diagnoses Not on filedocumented in this encounter Care Teams Edge Trimmer Mechanic Relationship Specialty Start Date End Date Rosa Sepulveda NP [address] [place] [address] PCP - General Family Medicine 09/13/19 documented as of this encounter Additional Source Comments The information contained in this document represents components of the legal health record. It is not the complete legal health record.[facility]
--- OUTSIDE RECORDS SUMMARY | 2025-07-18 18:01 | XMS_ITS | Encounter Summary ---
Author Organization [facility] Address [address] [place] [address] Phone Care Team Providers Care Oracle Application Consultant Name Role Phone Rosa Sepulveda NP Primary Care Provider +1- [phone] Encounter Details Date Type Department Care Team (Late st Contact Info) Description 05/27/2020 Procedure Pass [place] Admitting Dept - Virtual Department [address] [place] [address] Social History Tobacco Use Types Packs/Day Years [...] on filedocumented in this encounter Care Teams Oracle Application Consultant Relationship Specialty Start Date End Date Rosa Sepulveda NP [address] [place] [address] PCP - General Family Medicine 09/13/19 documented as of this encounter Additional Source Comments The information contained in this document represents components of the legal health record. It is not the complete legal health record.[facility]
--- OUTSIDE RECORDS SUMMARY | 2025-07-18 18:01 | XMS_ITS | Encounter Summary ---
Author Organization [facility] Address [address] [facility] [address] [place] [address] Phone Care Team Providers Care Room Service Food Service Attendant Name Role Phone Rosa Sepulveda TIRE BALANCER Primary Care Provider +1- [phone] Encounter Details Date Type Department Care Team (Late st Contact Info) Description 06/01/2025 Procedure Pass [facility], Ct Scan - [facility] [address] [place] [address] Social History Tobacco Use Types Packs/Day Years [...] 2:31 PM EDT Pat Campo RN * [place] Suicide Severity Rating Scale (Screener/Recent Self-Report) Question [...] 1 Month) No 06/01/2025 2:31 PM EDT [place], E mma, RN 6. Suicidal Behavior (Lifetime) No 5 2:31 PM EDT Pat Campo RN documented as of this encounter Plan of Treatment Not on file documented as of this encounter Visit Diagnoses Not on filedocumented in this encounter Care Teams Room Service Food Service Attendant Relationship Specialty Start Date End Date Rosa Sepulveda NP [address] [place] [address] PCP - General Family Medicine 09/13/19 documented as of this encounter Additional Source Comments The information contained in this document represents components of the legal health record. It is not the complete legal health record.[facility]
--- NOTE | 2025-07-18 19:01 | PC.ADMIT ---
Jean is a 40 year old male who was admitted 07/18/2025 at 1725 from [facility] on a CV for treatment of major depression, PTSD, Alcohol and Cocaine use. Prior to admission he was reporting suicidal ideation with a plan to jump onto train tracks or hang himself, and had hallucinations of bugs ?crawling everywhere.? His toxicology screen at [facility] came back positive for cocaine and cannabis. 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 He reported having poor sleep and fair appetite. He admitted to smoking occasionally but denied current alcohol or other drug use.? Upon admission he was pleasant and cooperative, reporting no hallucinations and not internally responding. He endorsed alcohol use twice a week drinking 2 containers of vodka, last drink being 2 days ago, and cocaine use last being 1 month ago. He last smoked 3 days ago with a pack per day for 28 years. He denied having a history of alcohol withdrawal seizures, and is interested in addiction treatment at this time, but has mixed feelings about drug use. ?I don?t feel good about it, but I don?t feel bad. If it kept me from going over the edge?? He reports having high blood pressure, constant ear ringing, two sacral stage 4 pressure injuries, an amputation in May of last year, as well as poor dietary intake and sleep because of homelessness. Placed on 5 minute safety checks.
[2025-07-18 20:10] VITALS: BP 132/90; PULSE 99; RESP 16; TEMP 36.7; O2SAT 97
[2025-07-18 20:38] LABS: Glucose, Whole Blood 223 mg/dL (60-115)
[2025-07-18] MEDS: Divalproex Sodium ER 250 MG TAB.ER.24H PO (20:59)
[2025-07-19 08:00] VITALS: BP 104/56; PULSE 86; RESP 14; TEMP 36.3; O2SAT 98
[2025-07-19 08:09] LABS: Glucose, Whole Blood 155 mg/dL (60-115)
[2025-07-19] MEDS: Divalproex Sodium ER 250 MG TAB.ER.24H PO ×2 (08:59→21:24)
[2025-07-19 09:18] LABS: Alanine Aminotransferase 39 U/L (0-40); Albumin Level 3.8 g/dL (3.5-5.0); Alkaline Phosphatase 106 U/L (39-117); Anion Gap 11 (12-20); Aspartate Amino Transferase 26 U/L (5-37); Blood Urea Nitrogen 15 mg/dL (9-16); Calcium 9.3 mg/dL (8.4-10.2); Carbon Dioxide 23 mmol/L (22-29); Chloride 110 mmol/L (96-108); Cholesterol 150 mg/dL (<200); Creatinine Clr Calc Pharmacy 221.6; Estimated Glomerular Filt Rate > 60; HDL Cholesterol 36 mg/dL (>40); Magnesium 1.8 mg/dL (1.6-2.6); Potassium 3.9 mmol/L (3.3-5.1); Sodium 140 mmol/L (135-145); Total Protein 6.1 g/dL (6.5-8.0); Triglycerides 222 mg/dL (<150)
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
[2025-07-19 09:23] LABS: Free T4 (Free Thyroxine) 0.86 ng/dL (0.71-1.85); Thyroid Stimulating Hormone 1.74 uIU/mL (0.32-4.0)
[2025-07-19 09:35] LABS: Folate 8.8 ng/mL (> or = 4.0); Vitamin B12 187 pg/mL (200-900)
[2025-07-19 11:55] LABS: Glucose, Whole Blood 231 mg/dL (60-115)
[2025-07-19 12:13] VITALS: BP 143/79; PULSE 102; RESP 18; O2SAT 97
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
[2025-07-19] MEDS: guanFACINE HCl ER 1 MG TAB.ER.24H PO (15:24)
[2025-07-19 16:06] VITALS: BP 132/87; PULSE 101; RESP 18; O2SAT 97
[2025-07-19 16:52] LABS: Glucose, Whole Blood 275 mg/dL (60-115)
[2025-07-19 19:33] VITALS: BP 152/93; PULSE 96; RESP 16; TEMP 36; O2SAT 97
[2025-07-19 21:00] LABS: Glucose, Whole Blood 224 mg/dL (60-115)
--- NOTE | 2025-07-20 | ECG_ITS ---
Test Reason : QTc monitoring Blood Pressure : */* mmHG Vent. Rate : 91 BPM Atrial Rate : 91 BPM P-R Int : 142 ms QRS Dur : 86 ms QT Int : 350 ms P-R-T Axes : 46 -9 36 degrees QTcB Int : 430 ms Normal sinus rhythm Normal ECG When compared with ECG of 04-Jun-2025 11:46, Minimal criteria for Anterior infarct are no longer Present Referred By: Sandee Brown Electronically Signed By: ROMIE MORA
--- NOTE | 2025-07-20 05:43 | HO.PSYCHPN ---
Subjective Subjective Date of Service: 07/20/25 Reason For Visit: SI Subjective Notes: Conditional Voluntary Interim History: Chart reviewed. Case discussed in team. Per nursing report- pt seems to have intentionally tensed his muscles prior to BP checks while on CIWA to score high enough to get Ativan. He has also reportedly exaggerated tremors with the CIWA checks but had his arms stretched out in front of him for 3 minutes today without any tremors. He also asked his nurse for percocet for sacral pain from sitting in the wheelchair and declined non-narcotic alternatives. T/W d/c'd the CIWA, switched to q4 hr vitals while awake and started standing lorazepam taper- 1 mg tid today, 1 mg bid over the weekend. Pt was calm, did not endorse any sx of ETOH w/d when t/w met w/ him this afternoon, about 8 hrs since he received the last lorazepam dose (1 mg). He didn't request any pain meds Pt endorses severe anxiety about being d/c'd to the street. States he thinks he can rent a single room after getting his benefits on 07/25 but he's had no ID card for >1 yr. States he hasn't been able to get one since he has no address to send it to. He notes that he has a [employer] and that he could get it sent to the [employer]'s address. Pt denies active SI but would be fine with not waking up, the setting of financial/housing insecurity and his medical issues He asked for one time dose of Haldol IM or Versed to quickly reduce his anxiety. T/W told him I wouldn't give him Versed but ordered 5 mg IM haldol, which he received. Visible in milieu Medication Compliance: Yes Side effects from medications: No Mental Status Exam Mental Status Exam Narrative: Appearance: in bed. grooming/hygiene fair. good eye contact Attitude:Cooperative Speech: Fluent and wnl in regard to volume, tone, prosody Motor activity: Calm and without any tics, tremors or dyskinesias. Mood: anxious and depressed Affect: appropriate, reactive Thought process: goal directed and without evidence of formal thought disorder Thought content: pdw,no active SI. Does not endorse violent ideation. Endorses intrusive thoughts of trauma Perception: Denies AH/VH and does not appear to respond to internal stimuli Alert/oriented in all spheres Cognition grossly intact Insight: fair Judgment: fair Diagnostics Vital Signs (24Hr): Vital Signs - 24 hr 07/19/25 08:00 07/19/25 12:13 07/19/25 16:06 Temperature 97.4 F Pulse Rate 86 102 H 101 H Respiratory Rate 14 18 18 Blood Pressure 104/56 L 143/79 H 132/87 Pulse Oximetry 98 97 97 Oxygen Delivery Method Room Air Room Air Room Air 07/19/25 19:33 Temperature 96.8 F Pulse Rate 96 Respiratory Rate 16 Blood Pressure 152/93 H Pulse Oximetry 97 Oxygen Delivery Method Room Air BMI result Body Mass Index 35.4 Labs 07/19/25 08:01 Labs: Laboratory Results - last 48 hr 07/18/25 07/19/25 07/19/25 20:34 07:47 08:01 Sodium 140 Potassium 3.9 Chloride 110 H Carbon Dioxide 23 Anion Gap 11 L BUN 15 Creatinine 0.61 Estim Creat Clear Calc 221.6 Estimated GFR > 60 POC Glucose 223 H 155 H Random Glucose 161 H Estimat Average Glucose 140 Hemoglobin A1c % 6.5 H Calcium 9.3 Magnesium 1.8 Total Bilirubin 0.2 Direct Bilirubin < 0.2 AST 26 ALT 39 Alkaline Phosphatase 106 Total Protein 6.1 L Albumin 3.8 Triglycerides 222 H Cholesterol 150 LDL Cholesterol, Calc 70 HDL Cholesterol 36 L Vitamin B12 187 L Folate 8.8 TSH 1.74 Free T4 0.86 07/19/25 07/19/25 07/19/25 11:45 16:46 20:56 Sodium Potassium Chloride Carbon Dioxide Anion Gap BUN Creatinine Estim Creat Clear Calc Estimated GFR POC Glucose 231 H 275 H 224 H Random Glucose Estimat Average Glucose Hemoglobin A1c % Calcium Magnesium Total Bilirubin Direct Bilirubin AST ALT Alkaline Phosphatase Total Protein Albumin Triglycerides Cholesterol LDL Cholesterol, Calc HDL Cholesterol Vitamin B12 Folate TSH Free T4 Medications Medications Current Medications Acetaminophen (Acetaminophen 325 Mg Tablet) 650 mg PO Q6H PRN PRN Reason: Headache/Pain, Scale 1-10 Al Hydroxide/Mg Hydroxide (Magnesium Hydrox/Alum Hydrox 30 Ml Oral.Susp) 30 ml PO Q6H PRN PRN Reason: Heartburn/Nausea Cyanocobalamin (Cyanocobalamin (Vitamin B-12) 1,000 Mcg Tablet) 1,000 mcg PO DAILY [facility] Dextrose (Dextrose 50 % 25 Gm/50 Ml Syringe) 25 gm IVPUSH Q15M PRN; Protocol PRN Reason: per Hypoglycemia Standing Ord. Divalproex Sodium (Divalproex Sodium Er 250 Mg Tab.Er.24h) 250 mg PO BID [facility] Last Admin: 07/19/25 21:24 Dose: 250 mg Glucose (Glucose Gel 15 Gm Gel..Gram.) 15 gm PO Q15M PRN; Protocol PRN Reason: per Hypoglycemia Standing Ord. Guanfacine HCl (Guanfacine Hcl Er 1 Mg Tab.Er.24h) 1 mg PO DAILY PRN PRN Reason: anxiety Last Admin: 07/19/25 15:24 Dose: 1 mg Hydroxyzine HCl (Hydroxyzine Hcl 50 Mg Tablet) 50 mg PO TID [facility] Last Admin: 07/19/25 21:24 Dose: 50 mg Hydroxyzine HCl (Hydroxyzine Hcl 50 Mg Tablet) 50 mg PO Q6H PRN PRN Reason: mild anxiety Insulin Human Lispro (Insulin Lispro 100 Unit/Ml 3 Ml Vial) 0 unit SUBCUT QIDACHS [facility]; Protocol Last Admin: 07/19/25 21:26 Dose: 4 unit Loperamide HCl (Loperamide Hcl 2 Mg Capsule) 2 mg PO Q6H PRN PRN Reason: Diarrhea Lorazepam (Lorazepam 1 Mg Tablet) 1 mg PO Q2H PRN PRN Reason: CIWA 8-11 Last Admin: 07/19/25 21:38 Dose: 1 mg Lorazepam (Lorazepam 1 Mg Tablet) 2 mg PO Q2H PRN PRN Reason: CIWA 12-15 Last Admin: 07/19/25 16:08 Dose: 2 mg Magnesium Hydroxide (Milk Of Magnesia 30 Ml Oral.Susp) 30 ml PO DAILY PRN PRN Reason: Constipation Mirtazapine (Mirtazapine 15 Mg Tablet) 15 mg PO BEDTIME [facility] Last Admin: 07/19/25 21:25 Dose: 15 mg Nicotine (Nicotine 21 Mg Patch.Td24) 21 mg TRANSDERMA DAILY PRN PRN Reason: nicotine craving Nicotine Polacrilex (Nicotine Polacrilex 2 Mg Gum) 2 mg BUCCAL Q2H PRN PRN Reason: Nicotine Cravings Omeprazole (Omeprazole 40 Mg Capsule.Dr) 40 mg PO BID@0630,1630 [facility] Last Admin: 07/19/25 16:09 Dose: 40 mg Ondansetron HCl (Ondansetron Odt 4 Mg Tab.Rapdis) 4 mg TRANSLINGU Q8H PRN PRN Reason: Nausea and Vomiting Last Admin: 07/19/25 16:09 Dose: 4 mg Pregabalin (Pregabalin 50 Mg Capsule) 50 mg PO BID [facility] Last Admin: 07/19/25 21:25 Dose: 50 mg Quetiapine Fumarate (Quetiapine Fumarate 100 Mg Tablet) 100 mg PO BEDTIME [facility] Last Admin: 07/19/25 21:25 Dose: 100 mg Quetiapine Fumarate (Quetiapine Fumarate 100 Mg Tablet) 100 mg PO BEDTIME PRN PRN Reason: Insomnia. Given if scheduled dose not effect Quetiapine Fumarate (Quetiapine Fumarate 50 Mg Tablet) 50 mg PO BID PRN PRN Reason: agitation/severe anxiety Last Admin: 07/19/25 15:19 Dose: 50 mg Sertraline HCl (Sertraline Hcl 50 Mg Tablet) 150 mg PO DAILY [facility] Last Admin: 07/19/25 08:58 Dose: 150 mg Thiamine HCl (Thiamine Hcl 100 Mg Tablet) 100 mg PO DAILY [facility] Last Admin: 07/19/25 08:59 Dose: 100 mg Trazodone HCl (Trazodone Hcl 50 Mg Tablet) 50 mg PO BEDTIME MRX1 PRN PRN Reason: Insomnia Allergies Allergies Allergy/AdvReac Type Severity Reaction Status Date / Time baclofen Allergy Hives Verified 07/15/25 22:05 escitalopram (From Lexapro) Allergy Vomiting Verified 07/15/25 22:05 lithium Allergy Unresponsiv Verified 07/15/25 22:05 e metformin Allergy Unknown Verified 07/15/25 22:05 morphine Allergy Hives Verified 07/15/25 22:05 sulfamethoxazole (From Allergy Hives Verified 07/15/25 22:05 Bactrim) tramadol Allergy Hives Verified 07/15/25 22:05 trimethoprim (From Bactrim) Allergy Hives Verified 07/15/25 22:05 Assessment & Plan Assessment & Plan (1) Bipolar disorder: Status: Acute Code(s): F31.9 - Bipolar disorder, unspecified (2) PTSD (post-traumatic stress disorder): Status: Acute Code(s): F43.10 - Post-traumatic stress disorder, unspecified (3) Alcohol use disorder, severe, dependence: Status: Acute Code(s): F10.20 - Alcohol dependence, uncomplicated (4) Sacral decubitus ulcer: Qualifiers: Pressure injury stage: unspecified pressure injury stage Qualified Code(s): L89.159 - Pressure ulcer of sacral region, unspecified stage Status: Acute Code(s): L89.159 - Pressure ulcer of sacral region, unspecified stage (5) Guillain-Girdler: Status: Acute Code(s): G61.0 - Guillain-Girdler syndrome (6) Osteomyelitis: Qualifiers: Osteomyelitis location: unspecified site Osteomyelitis type: unspecified type Qualified Code(s): M86.9 - Osteomyelitis, unspecified Status: Acute Code(s): M86.9 - Osteomyelitis, unspecified Plan HPI: Patient is a 40 y.o single Azeri speaking male with history of Bipolar II, PTSD, and Medical hx of Guillian Girdler syndrome wheelchair-bound,with 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 ED with SI with plan to either jump in front of a train or hang self. Patient was tearful at bedside. Report I cannot take it anymore . I would rather be . I have more reasons to than to live . I have also been seeing bugs that are crawling everywhere . Hospital course: 07/19/25: Re-start all home meds Re-start on Lyrica at lower dose for nerve pain: 50mg BID Will address with patient regarding Guanfacine IR and ER as we do not carry IR form and patient takes it PRN. Monitor for BS via Diabetic protocol Monitor for alcohol W/D with PRN Ativan. Plan Patient on 5 minute checks for safety: Wheelchair. Admitted to . CV. Work with treatment team to do collateral for CSS/CCS if possible for aftercare. Refer to patient to nail specialist: declined. Contact the hospitalist regarding hospitalist consultation on admission:seen by Hospitalist. Consult in for wound/pressure ulcer. 07/20: Pt received one time dose of IM haldol 5 mg per his request for severe anxiety related to potential that he will have to return to the streets upon d/c. Increased prn seroquel to 50 mg tid. He hopes to be able to rent a room but needs an ID card. Patient educated on: medication risk/benefits Informed Consent: understands Reason for continued inpatient stay Substantial Risk for: med/psych decompensation Time Spent With Patient Time: Total time managing care of this patient today ____ minutes.
[2025-07-20 07:35] LABS: Glucose, Whole Blood 326 mg/dL (60-115)
[2025-07-20] MEDS: Divalproex Sodium ER 250 MG TAB.ER.24H PO ×2 (07:56→20:44)
[2025-07-20 08:07] VITALS: BP 150/92; PULSE 98; RESP 18; TEMP 36.8; O2SAT 96
[2025-07-20] MEDS: guanFACINE HCl ER 1 MG TAB.ER.24H PO (08:25)
[2025-07-20 11:52] LABS: Glucose, Whole Blood 282 mg/dL (60-115)
[2025-07-20 13:44] VITALS: BP 113/87; PULSE 108; RESP 20; O2SAT 98
--- NOTE | 2025-07-20 16:36 | MHC.CLN ---
CONSULT PATIENT WITH HX CHRONIC STAGE 4 SACRAL WOUNDS. RAFAEL=22. DIET RX: REGULAR. ADDING ENSURE MAX BID TO IMPROVE SKIN INTEGRITY. SUPPLEMENT PROVIDES 300 KCALS, 60 G PROTEIN. HOMELESS, WC BOUND WITH R BKA. BMI ADJUSTED FOR BKA=37.6, OBESE. WEIGHT APPROX EQUAL TO WEIGHT 04/14/25 MLF=[address] TO FOLLOW UP IN ONE WEEK.
[2025-07-20 16:45] VITALS: BP 119/72; PULSE 104; RESP 20; O2SAT 97
[2025-07-20 16:47] LABS: Glucose, Whole Blood 262 mg/dL (60-115)
--- NOTE | 2025-07-20 17:58 | MHC.RECOVRN ---
Consult received by Addiction Medicine for AUD. On approach pt was laying in bed with eyes closed, respirations even and unlabored, i nno apparent distress. Pt awoke to name being called and asked TW to return tomorrow, when I'm more with it, I took some medication . TW agreed to meet with pt tomorrow at 0930 ACS team available as needed for ongoing support.
[2025-07-20 20:00] VITALS: BP 126/83; PULSE 98; RESP 18; TEMP 35.9; O2SAT 97
[2025-07-20 20:35] LABS: Glucose, Whole Blood 211 mg/dL (60-115)
[2025-07-21 07:29] LABS: Glucose, Whole Blood 236 mg/dL (60-115)
[2025-07-21 08:00] VITALS: BP 124/79; PULSE 104; RESP 18; TEMP 36.5; O2SAT 96
[2025-07-21] MEDS: Divalproex Sodium ER 250 MG TAB.ER.24H PO (08:43)
[2025-07-21] MEDS: guanFACINE HCl ER 1 MG TAB.ER.24H PO (09:50)
[2025-07-21 11:42] LABS: Glucose, Whole Blood 356 mg/dL (60-115)
[2025-07-21 12:00] VITALS: BP 131/80; PULSE 108; RESP 24; TEMP 36.6; O2SAT 98
[2025-07-21 16:16] VITALS: BP 142/85; PULSE 111; RESP 28; TEMP 36; O2SAT 98
--- NOTE | 2025-07-21 16:28 | MHC.RECOVRN ---
T/W met with pt. with pt. in common area following referral received for AUD. Pt in bed in room resting comfortably upon my arrival and awoke to voice. Pt self transferred to / without difficulty and we went to a common area to meet. Pt reports that approx 10 years ago he was on methadone following a period of misuse of prescribed pain medication. When he was on the methadone he also experienced some pain relief. He reports he started using pain medications in early 20's to early 30's. Most recently pt reports that back in December his father . I had to make the decision to pull the plug . At that time he became without housing and he stopped getting his prescribed pain medication. That is when he reports he started smoking opium . He reports he smoked about 4-6 bowls at a time intermittently to control his pain. He reports last use approx 3 weeks ago. Pt reports that he uses cocaine IN approx 1-2x/mo for the last 3-4 years. Using 2-6 g. each time. He uses edible THC here and there . He reports it helps him with his paranoia and sleep. Pt reports that last Sep he started drinking 2-4 liters of vodka/day and stopped approx 1 month prior to admission. Pt identifies triggers to substance use as pain and loss of father. He is identifying the need for grief counseling and we also discussed pain management clinic for chronic pain. Pt's tox on admit was positive for THC and cocaine. T/W spoke with staff and staff report that his statements to them re: substance use are different that above and that ETOH is his primary issue. He did not mention opiates to them. Because of his report of last use, tox. screen, staff report and presentation, it appears that pt. is not currently in active W/D and is not appropriate at this time for MIGUEL/MOUD. He would benefit from therapy and pain management referral. T/W will meet with pt tomorrow to discuss and will discuss with providers as appropriate. ACS services available PRN
[2025-07-21 16:42] LABS: Glucose, Whole Blood 466 mg/dL (60-115)
[2025-07-21 18:46] LABS: Glucose, Whole Blood 523 mg/dL (60-115)
[2025-07-21 19:44] LABS: MANUAL DIFF FLAG NO
[2025-07-21 20:00] VITALS: BP 148/92; PULSE 109; RESP 18; TEMP 36.1; O2SAT 97
[2025-07-21 20:04] LABS: Glucose, Whole Blood 527 mg/dL (60-115)
[2025-07-21 20:04] LABS: Appearance Urine Clear; Glucose Urine UA >=1000 mg/dL (Negative); PH 6.0 (5.0-9.0); Specific Gravity - Urine 1.025 (1.005-1.025); UMIC TRIGGER UACC YES
[2025-07-21 20:20] LABS: Alanine Aminotransferase 37 U/L (0-40); Albumin Level 4.3 g/dL (3.5-5.0); Alkaline Phosphatase 152 U/L (39-117); Anion Gap 15 (12-20); Aspartate Amino Transferase 32 U/L (5-37); Blood Urea Nitrogen 14 mg/dL (9-16); Calcium 9.3 mg/dL (8.4-10.2); Carbon Dioxide 20 mmol/L (22-29); Chloride 105 mmol/L (96-108); Creatinine Clr Calc Pharmacy 140.8; Estimated Glomerular Filt Rate > 60; Potassium 4.4 mmol/L (3.3-5.1); Sodium 136 mmol/L (135-145); Total Protein 6.9 g/dL (6.5-8.0)
[2025-07-21 20:34] LABS: Hematocrit 40.3 % (42.0-52.0); Hemoglobin 12.9 g/dl (14.0-18.0); Imm Gran Abs Auto 0.02 X10*3/uL (0.00-0.03); Imm Gran Pct Auto 0.5 % (0.0-0.4); Lymphocytes Absolute Auto 1.1 X10*3/uL (1.2-4.9); Mean Corpuscular HGB Conc 32.0 g/dl (31.0-36.0); Mean Corpuscular Hemoglobin 25.7 pg (27.0-33.0); Mean Corpuscular Volume 80.4 fL (80.0-98.0); NRBC Abs Auto 0.000 X10*3/uL (0.0-0.012); NRBC Pct Auto 0.0 /100WBC (0.0-0.2); Platelet Count 144 X10*3/uL (160-400); Red Blood Count 5.01 X10*6/uL (4.60-5.80); White Blood Count 3.9 X10*3/uL (4.8-10.8)
--- NOTE | 2025-07-21 20:43 | PM.EVENT ---
Event Note Date of Service: 07/22/25 Event Note: Notified by Psychaitry that pt's BG is elevated, 527 and requesting consult for pt to be seen. UA, CBC and BMP were already sent, In the interim, R insulin IV ordered 10 u and IVF bolus and hourly rate also ordered. 2034 Labs reveal CO2 20, AG 15 (closed), >1000 glucose in urine, trace ketones. No DKA. Pt seen and examined, is ALert and orientated X3, NAD, not diaphoretic. Pt has usual wound on sacrum/coccyx area that is stable compared to previous admissions. No new wounds on RLE. CUrrently plan is to add lantus 26 U HS, continue IVF and monitor BG hourly until less than 400, then Q2 hours overnight. Currently pt does not require transfer to medical surgical floor. 0400 Pt has been improving overnight after IVF, Lantus and Reg insulin. BG currently 213 mg/dL, no episodes of hypoglycemia. Plan is to continue remainder of IVF left and continue lantus at HS alone with SSI. Diabetic diet in place. Wound consult placed to evaluate sacral wound. Time Spent With Patient Time: Total time managing care of this patient today ____ minutes.
[2025-07-21 21:02] LABS: Venous Blood Gas Refer to POC result
[2025-07-21 21:03] LABS: VBG HCO3 25 mmol/L (22-26); VBG O2 % Saturation 56.0 %
[2025-07-21 21:12] LABS: Glucose, Whole Blood 402 mg/dL (60-115)
[2025-07-21] MEDS: Insulin Glargine,Hum.rec.anlog 100 UNIT/ML 10 ML VIAL 26 UNIT SUBCUT (21:21)
[2025-07-21 22:08] LABS: Glucose, Whole Blood 316 mg/dL (60-115)
[2025-07-21 23:10] LABS: Glucose, Whole Blood 300 mg/dL (60-115)
[2025-07-21 23:37] VITALS: BP 139/86; PULSE 105; RESP 18; TEMP 36.3; O2SAT 96
--- NOTE | 2025-07-21 23:46 | HO.PSYCHPN ---
Subjective Subjective Date of Service: 07/21/25 Reason For Visit: SI Subjective Notes: Conditional Voluntary Healthcare Proxy: No Guardianship: No Medical Problems Affecting Mental Status: No Interim History: Medical record and nursing notes reviewed; case discussed during rounds with team/nursing staff, and met with patient for supportive therapy/psychoeducation, as well as medication management. Met with patient after lunch. Patient reports very anxious, but denies suicidal thoughts. Reports sometimes he feels paranoid, and feeling bugs crawling on his skin. Nursing contact this provider a couple of times due to patient requests for Haldol for anxiety. Given Haldol 10 mg x 1, with moderate effect. Review changes in terms of medication with patient. Patient is grateful and appreciate the change made. Patient remain on Ativan taper. This is his 5th day without alcohol. Incongruent with mood. Appeared to have medication seeking behavior. He asked about phenobarbital. Assure patient that this is his 5th day, and he is on Ativan taper. It should be enough to cover for any withdrawal if he has any. Nursing also contact for elevated blood sugar which patient observed eating and drinking the ensure in the afternoon before dinner. Patient is receptive with the medication plan, a shower, slept for 8 hours. Medication compliant. Denies side effects. Remain on 5 minute checks due to wheelchair. Medication Compliance: Yes Side effects from medications: No Attending Groups: Yes Review of Systems Acute medical concerns: No Medical Review of Systems: unchanged Review of Systems Review of Systems Constitutional: Denies fatigue and Denies fever(s). Cardiovascular: Denies chest pain and Denies dyspnea Respiratory: Denies dyspnea Gastrointestinal: Denies abdominal pain Psychiatric: denies suicidal ideation Endocrine: Denies fatigue On wheelchair with pressure ulcer on sacrium. Consult to Wound care team: pending Mental Status Exam Mental Status Exam Narrative: Appearance: Visible, no ADLs, shower this afternoon. grooming/hygiene fair. good eye contact Attitude:Cooperative Speech: Fluent and wnl in regard to volume, tone, prosody Motor activity: Calm and without any tics, tremors or dyskinesias. Mood: anxious Affect: appropriate, reactive Thought process: focus on medications. Organized enough to advocate for self. Thought content: No SI/SIB/HI Perception: Reports paranoid, feeling like bugs crawling on his skin but does not appear to respond to internal stimuli/psychotic Alert/oriented in all spheres Cognition grossly intact Insight: fair Judgment: fair Diagnostics Vital Signs (24Hr): Vital Signs - 24 hr 07/21/25 08:00 07/21/25 12:00 07/21/25 16:16 Temperature 97.7 F 97.9 F 96.8 F Pulse Rate 104 H 108 H 111 H Respiratory Rate 18 24 H 28 H Blood Pressure 124/79 131/80 142/85 H Pulse Oximetry 96 98 98 Oxygen Delivery Method Room Air Room Air Room Air 07/21/25 20:00 07/21/25 23:37 Temperature 97.0 F 97.4 F Pulse Rate 109 H 105 H Respiratory Rate 18 18 Blood Pressure 148/92 H 139/86 Pulse Oximetry 97 96 Oxygen Delivery Method Room Air Room Air BMI result Body Mass Index 35.4 Labs 07/21/25 19:26 07/21/25 19:26 Labs: Laboratory Results - last 48 hr 07/20/25 07/20/25 07/20/25 07:29 11:40 16:42 WBC RBC Hgb Hct MCV MCH MCHC RDW Plt Count MPV Immature Gran % (Auto) Neut % (Auto) Lymph % (Auto) [place] % (Auto) Eos % (Auto) Baso % (Auto) Lymph # (Auto) [place] # (Auto) Eos # (Auto) Baso # (Auto) Abs Immat Gran (auto) Absolute Neuts (auto) Absolute Nucleated RBC Nucleated RBC % (auto) VBG pH VBG pCO2 VBG pO2 VBG HCO3 VBG O2 Saturation VBG Base Excess Sodium Potassium Chloride Carbon Dioxide Anion Gap BUN Creatinine Estim Creat Clear Calc Estimated GFR POC Glucose 326 H 282 H 262 H Random Glucose Calcium Total Bilirubin AST ALT Alkaline Phosphatase Total Protein Albumin Beta-Hydroxybutyrate Urine Color Urine Appearance Urine pH Ur Specific Rupert Urine Protein Urine Glucose (UA) Urine Ketones Urine Blood Urine Nitrite Ur Leukocyte Esterase Urine RBC Urine WBC Ur Squamous Epith Cells Urine Bacteria Hyaline Casts 07/20/25 07/21/25 07/21/25 20:30 07:10 11:37 WBC RBC Hgb Hct MCV MCH MCHC RDW Plt Count MPV Immature Gran % (Auto) Neut % (Auto) Lymph % (Auto) [place] % (Auto) Eos % (Auto) Baso % (Auto) Lymph # (Auto) [place] # (Auto) Eos # (Auto) Baso # (Auto) Abs Immat Gran (auto) Absolute Neuts (auto) Absolute Nucleated RBC Nucleated RBC % (auto) VBG pH VBG pCO2 VBG pO2 VBG HCO3 VBG O2 Saturation VBG Base Excess Sodium Potassium Chloride Carbon Dioxide Anion Gap BUN Creatinine Estim Creat Clear Calc Estimated GFR POC Glucose 211 H 236 H 356 H* Random Glucose Calcium Total Bilirubin AST ALT Alkaline Phosphatase Total Protein Albumin Beta-Hydroxybutyrate Urine Color Urine Appearance Urine pH Ur Specific Rupert Urine Protein Urine Glucose (UA) Urine Ketones Urine Blood Urine Nitrite Ur Leukocyte Esterase Urine RBC Urine WBC Ur Squamous Epith Cells Urine Bacteria Hyaline Casts 07/21/25 07/21/25 07/21/25 16:37 18:42 19:26 WBC 3.9 L RBC 5.01 Hgb 12.9 L Hct 40.3 L MCV 80.4 MCH 25.7 L MCHC 32.0 RDW 15.9 Plt Count 144 L D MPV 11.3 Immature Gran % (Auto) 0.5 H Neut % (Auto) 60.0 Lymph % (Auto) 28.2 [place] % (Auto) 9.7 Eos % (Auto) 1.3 Baso % (Auto) 0.3 Lymph # (Auto) 1.1 L [place] # (Auto) 0.4 Eos # (Auto) 0.1 Baso # (Auto) 0.0 Abs Immat Gran (auto) 0.02 Absolute Neuts (auto) 2.4 Absolute Nucleated RBC 0.000 Nucleated RBC % (auto) 0.0 VBG pH VBG pCO2 VBG pO2 VBG HCO3 VBG O2 Saturation VBG Base Excess Sodium 136 Potassium 4.4 Chloride 105 Carbon Dioxide 20 L Anion Gap 15 BUN 14 Creatinine 0.96 Estim Creat Clear Calc 140.8 Estimated GFR > 60 POC Glucose 466 H* 523 H* Random Glucose 521 H* Calcium 9.3 Total Bilirubin 0.3 AST 32 ALT 37 Alkaline Phosphatase 152 H Total Protein 6.9 Albumin 4.3 Beta-Hydroxybutyrate 0.11 Urine Color Urine Appearance Urine pH Ur Specific Rupert Urine Protein Urine Glucose (UA) Urine Ketones Urine Blood Urine Nitrite Ur Leukocyte Esterase Urine RBC Urine WBC Ur Squamous Epith Cells Urine Bacteria Hyaline Casts 07/21/25 07/21/25 07/21/25 19:35 19:59 20:10 WBC RBC Hgb Hct MCV MCH MCHC RDW Plt Count MPV Immature Gran % (Auto) Neut % (Auto) Lymph % (Auto) [place] % (Auto) Eos % (Auto) Baso % (Auto) Lymph # (Auto) [place] # (Auto) Eos # (Auto) Baso # (Auto) Abs Immat Gran (auto) Absolute Neuts (auto) Absolute Nucleated RBC Nucleated RBC % (auto) VBG pH 7.34 VBG pCO2 46 VBG pO2 39 VBG HCO3 25 VBG O2 Saturation 56.0 VBG Base Excess -0.8 Sodium Potassium Chloride Carbon Dioxide Anion Gap BUN Creatinine Estim Creat Clear Calc Estimated GFR POC Glucose 527 H* Random Glucose Calcium Total Bilirubin AST ALT Alkaline Phosphatase Total Protein Albumin Beta-Hydroxybutyrate Urine Color Yellow Urine Appearance Clear Urine pH 6.0 Ur Specific Rupert 1.025 Urine Protein Negative Urine Glucose (UA) >=1000 H Urine Ketones Trace Urine Blood Negative Urine Nitrite Negative Ur Leukocyte Esterase Negative Urine RBC 0-2 Urine WBC 0-5 Ur Squamous Epith Cells 0-2 Urine Bacteria None Seen Hyaline Casts 0-2 07/21/25 07/21/25 07/21/25 21:07 22:03 23:04 WBC RBC Hgb Hct MCV MCH MCHC RDW Plt Count MPV Immature Gran % (Auto) Neut % (Auto) Lymph % (Auto) [place] % (Auto) Eos % (Auto) Baso % (Auto) Lymph # (Auto) [place] # (Auto) Eos # (Auto) Baso # (Auto) Abs Immat Gran (auto) Absolute Neuts (auto) Absolute Nucleated RBC Nucleated RBC % (auto) VBG pH VBG pCO2 VBG pO2 VBG HCO3 VBG O2 Saturation VBG Base Excess Sodium Potassium Chloride Carbon Dioxide Anion Gap BUN Creatinine Estim Creat Clear Calc Estimated GFR POC Glucose 402 H* 316 H 300 H Random Glucose Calcium Total Bilirubin AST ALT Alkaline Phosphatase Total Protein Albumin Beta-Hydroxybutyrate Urine Color Urine Appearance Urine pH Ur Specific Rupert Urine Protein Urine Glucose (UA) Urine Ketones Urine Blood Urine Nitrite Ur Leukocyte Esterase Urine RBC Urine WBC Ur Squamous Epith Cells Urine Bacteria Hyaline Casts Medications Medications Current Medications Acetaminophen (Acetaminophen 325 Mg Tablet) 650 mg PO Q6H PRN PRN Reason: Headache/Pain, Scale 1-10 Al Hydroxide/Mg Hydroxide (Magnesium Hydrox/Alum Hydrox 30 Ml Oral.Susp) 30 ml PO Q6H PRN PRN Reason: Heartburn/Nausea Cyanocobalamin (Cyanocobalamin (Vitamin B-12) 1,000 Mcg Tablet) 1,000 mcg PO DAILY [facility] Last Admin: 07/21/25 08:42 Dose: 1,000 mcg Dextrose (Dextrose 50 % 25 Gm/50 Ml Syringe) 25 gm IVPUSH Q15M PRN; Protocol PRN Reason: per Hypoglycemia Standing Ord. Divalproex Sodium (Divalproex Sodium Er 500 Mg Tab.Er.24h) 500 mg PO DAILY [facility] Divalproex Sodium (Divalproex Sodium Er 500 Mg Tab.Er.24h) 1,000 mg PO BEDTIME [facility] Last Admin: 07/21/25 20:10 Dose: 1,000 mg Glucose (Glucose Gel 15 Gm Gel..Gram.) 15 gm PO Q15M PRN; Protocol PRN Reason: per Hypoglycemia Standing Ord. Guanfacine HCl (Guanfacine Hcl Er 1 Mg Tab.Er.24h) 1 mg PO DAILY [facility] Haloperidol (Haloperidol 5 Mg Tablet) 10 mg PO BID PRN PRN Reason: agitation Last Admin: 07/21/25 22:12 Dose: 10 mg Hydroxyzine HCl (Hydroxyzine Hcl 50 Mg Tablet) 50 mg PO TID [facility] Last Admin: 07/21/25 20:11 Dose: 50 mg Hydroxyzine HCl (Hydroxyzine Hcl 50 Mg Tablet) 50 mg PO Q6H PRN PRN Reason: mild anxiety Last Admin: 07/21/25 22:12 Dose: 50 mg Sodium Chloride (Ns) 1,000 mls @ 125 mls/hr IVCONT .Q8H [facility] Last Admin: 07/21/25 23:07 Dose: 125 mls/hr Insulin Glargine (Insulin Glargine,Hum.Rec.Anlog 100 Unit/Ml 10 Ml Vial) 26 unit SUBCUT BEDTIME [facility] Last Admin: 07/21/25 21:21 Dose: 26 unit Insulin Human Lispro (Insulin Lispro 100 Unit/Ml 3 Ml Vial) 0 unit SUBCUT QIDACHS [facility]; Protocol Last Admin: 07/21/25 20:57 Dose: Not Given Loperamide HCl (Loperamide Hcl 2 Mg Capsule) 2 mg PO Q6H PRN PRN Reason: Diarrhea Lorazepam (Lorazepam 1 Mg Tablet) 1 mg PO BID [facility] Stop: 07/23/25 09:01 Last Admin: 07/21/25 20:11 Dose: 1 mg Magnesium Hydroxide (Milk Of Magnesia 30 Ml Oral.Susp) 30 ml PO DAILY PRN PRN Reason: Constipation Mirtazapine (Mirtazapine 15 Mg Tablet) 15 mg PO BEDTIME [facility] Last Admin: 07/21/25 20:11 Dose: 15 mg Nicotine (Nicotine 21 Mg Patch.Td24) 21 mg TRANSDERMA DAILY PRN PRN Reason: nicotine craving Nicotine Polacrilex (Nicotine Polacrilex 2 Mg Gum) 2 mg BUCCAL Q2H PRN PRN Reason: Nicotine Cravings Omeprazole (Omeprazole 40 Mg Capsule.Dr) 40 mg PO BID@0630,1630 [facility] Last Admin: 07/21/25 16:56 Dose: 40 mg Ondansetron HCl (Ondansetron Odt 4 Mg Tab.Rapdis) 4 mg TRANSLINGU Q8H PRN PRN Reason: Nausea and Vomiting Last Admin: 07/19/25 16:09 Dose: 4 mg Pregabalin (Pregabalin 100 Mg Capsule) 100 mg PO BID [facility] Last Admin: 07/21/25 20:11 Dose: 100 mg Quetiapine Fumarate (Quetiapine Fumarate 200 Mg Tablet) 200 mg PO BEDTIME [facility] Last Admin: 07/21/25 20:11 Dose: 200 mg Quetiapine Fumarate (Quetiapine Fumarate 50 Mg Tablet) 50 mg PO BID@0900,1500 [facility] Last Admin: 07/21/25 14:37 Dose: 50 mg Sertraline HCl (Sertraline Hcl 50 Mg Tablet) 150 mg PO DAILY [facility] Last Admin: 07/21/25 08:43 Dose: 150 mg Thiamine HCl (Thiamine Hcl 100 Mg Tablet) 100 mg PO DAILY [facility] Last Admin: 07/21/25 08:43 Dose: 100 mg Trazodone HCl (Trazodone Hcl 50 Mg Tablet) 50 mg PO BEDTIME MRX1 PRN PRN Reason: Insomnia Allergies Allergies Allergy/AdvReac Type Severity Reaction Status Date / Time baclofen Allergy Hives Verified 07/15/25 22:05 escitalopram (From Lexapro) Allergy Vomiting Verified 07/15/25 22:05 lithium Allergy Unresponsiv Verified 07/15/25 22:05 e metformin Allergy Unknown Verified 07/15/25 22:05 morphine Allergy Hives Verified 07/15/25 22:05 sulfamethoxazole (From Allergy Hives Verified 07/15/25 22:05 Bactrim) tramadol Allergy Hives Verified 07/15/25 22:05 trimethoprim (From Bactrim) Allergy Hives Verified 07/15/25 22:05 Assessment & Plan Assessment & Plan (1) Bipolar disorder: Status: Acute Code(s): F31.9 - Bipolar disorder, unspecified (2) PTSD (post-traumatic stress disorder): Status: Acute Code(s): F43.10 - Post-traumatic stress disorder, unspecified (3) Alcohol use disorder, severe, dependence: Status: Acute Code(s): F10.20 - Alcohol dependence, uncomplicated (4) Sacral decubitus ulcer: Qualifiers: Pressure injury stage: unspecified pressure injury stage Qualified Code(s): L89.159 - Pressure ulcer of sacral region, unspecified stage Status: Acute Code(s): L89.159 - Pressure ulcer of sacral region, unspecified stage (5) 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: Acute Code(s): G61.0 - Guillain-[place] syndrome (6) Osteomyelitis: Qualifiers: Osteomyelitis location: unspecified site Osteomyelitis type: unspecified type Qualified Code(s): M86.9 - Osteomyelitis, unspecified Status: Acute Code(s): M86.9 - Osteomyelitis, unspecified Plan HPI: Patient is a 40 y.o single Azeri speaking male with history of Bipolar II, PTSD, and 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 Patient was tearful at bedside. Report I cannot take it anymore . I would rather be . I have more reasons to than to live . I have also been seeing bugs that are crawling everywhere . Hospital course: 07/19/25: Re-start all home meds Re-start on Lyrica at lower dose for nerve pain: 50mg BID Will address with patient regarding Guanfacine IR and ER as we do not carry IR form and patient takes it PRN. Monitor for BS via Diabetic protocol Monitor for alcohol W/D with PRN Ativan. 07/20: Pt received one time dose of IM haldol 5 mg per his request for severe anxiety related to potential that he will have to return to the streets upon d/c. Increased prn seroquel to 50 mg tid. He hopes to be able to rent a room but needs an ID card. 07/21/25: Met with patient after lunch. Patient reports very anxious, but denies suicidal thoughts. Reports sometimes he feels paranoid, and feeling bugs crawling on his skin. Nursing contact this provider a couple of times due to patient requests for Haldol for anxiety. Given Haldol 10 mg x 1, with moderate effect. Review changes in terms of medication with patient. Patient is grateful and appreciate the change made. Patient remain on Ativan taper. This is his 5th day without alcohol. Incongruent with mood. Appeared to have medication seeking behavior. He asked about phenobarbital. Assure patient that this is his 5th day, and he is on Ativan taper. It should be enough to cover for any withdrawal if he has any. Nursing also contact for elevated blood sugar which patient observed eating and drinking the ensure in the afternoon before dinner. Patient is receptive with the medication plan, a shower, slept for 8 hours. Medication compliant. Denies side effects. Remain on 5 minute checks due to wheelchair. Increase Lyrica to b.i.d. for neuropathy Schedule guanfacine 1mg daily At Haldol 10 mg b.i.d. p.r.n. for severe agitation/psychosis Increase Seroquel up to 200 at bedtime. DC or the PRNs Scheduled Seroquel 50 b.i.d. at 0900 and 1500 Increase Depakote from 250 b.i.d. to 1500 at bedtime. Continue with Ativan taper Plan Patient on 5 minute checks for safety: Wheelchair. Admitted to . CV. Work with treatment team to do collateral for CSS/CCS if possible for aftercare. Refer to patient to market research specialist: declined. Contact the hospitalist regarding hospitalist consultation on admission:seen by Hospitalist. Consult in for wound/pressure ulcer: pending Patient educated on: diagnosis, medication risk/benefits, substance abuse and therapeutic strategies Informed Consent: understands and further education needed Reason for continued inpatient stay Substantial Risk for: med/psych decompensation Time Spent With Patient Time: Total time managing care of this patient today ____ minutes.
[2025-07-22 00:18] LABS: Glucose, Whole Blood 235 mg/dL (60-115)
[2025-07-22 01:15] LABS: Glucose, Whole Blood 225 mg/dL (60-115)
[2025-07-22 02:09] LABS: Glucose, Whole Blood 213 mg/dL (60-115)
[2025-07-22 04:00] VITALS: BP 140/88; PULSE 104; RESP 16; O2SAT 97
[2025-07-22 04:12] LABS: Glucose, Whole Blood 212 mg/dL (60-115)
[2025-07-22 06:09] LABS: Glucose, Whole Blood 233 mg/dL (60-115)
[2025-07-22 07:38] VITALS: BP 151/89; PULSE 85; RESP 20; TEMP 36.7; O2SAT 97
[2025-07-22 07:51] LABS: Glucose, Whole Blood 214 mg/dL (60-115)
[2025-07-22] MEDS: guanFACINE HCl ER 1 MG TAB.ER.24H PO (08:22)
[2025-07-22] MEDS: 0.9 % Sodium Chloride Flush 3 ML SYRINGE IVFLUSH (08:24)
[2025-07-22 10:36] LABS: Glucose, Whole Blood 216 mg/dL (60-115)
[2025-07-22 11:53] LABS: Glucose, Whole Blood 229 mg/dL (60-115)
[2025-07-22] MEDS: Nicotine 21 MG PATCH.TD24 TRANSDERMA (12:03)
--- NOTE | 2025-07-22 14:36 | MHC.RECOVRN ---
T/W went to check in with pt. and to explore ways we can support him outside of methadone as it does not seem appropriate at this time. Pt sleeping comfortably. Staff report he had a very rough morning so t/w did not awaken him. Will check back in tomorrow after CC with Yeimy Kent NP. ACS available PRN
[2025-07-22 16:58] LABS: Glucose, Whole Blood 208 mg/dL (60-115)
[2025-07-22 17:07] VITALS: BP 126/83; PULSE 111; RESP 18; TEMP 36.2; O2SAT 96
[2025-07-22 19:30] VITALS: BP 128/74; PULSE 106; RESP 16; TEMP 36.2; O2SAT 97
[2025-07-22 20:08] LABS: Glucose, Whole Blood 299 mg/dL (60-115)
[2025-07-22] MEDS: Insulin Glargine,Hum.rec.anlog 100 UNIT/ML 10 ML VIAL 26 UNIT SUBCUT (20:34)
--- NOTE | 2025-07-22 22:22 | P.PNPSI_ITS ---
Subjective Subjective Date of Service: 07/22/25 Reason For Visit: SI Subjective Notes: Conditional Voluntary Healthcare Proxy: No Guardianship: No Medical Problems Affecting Mental Status: No Interim History: Medical record and nursing notes reviewed; case discussed during rounds with team/nursing staff, and met with patient for supportive therapy/psychoeducation, as well as medication management. Per hospitalist note in the afternoon/evening on 07/21: Notified by Psychiatry that pt's BG is elevated, 527 and requesting consult for pt to be seen. UA, CBC and BMP were already sent, In the interim, R insulin IV ordered 10 u and IVF bolus and hourly rate also ordered. 2034 Labs reveal CO2 20, AG 15 (closed), >1000 glucose in urine, trace ketones. No DKA. Pt seen and examined, is ALert and orientated X3, NAD, not diaphoretic. Pt has usual wound on sacrum/coccyx area that is stable compared to previous admissions. No new wounds on RLE. Currently plan is to add lantus 26 U HS, continue IVF and monitor BG hourly until less than 400, then Q2 hours overnight. Currently pt does not require transfer to medical surgical floor Patient continued to get monitor blood sugar and IV normal saline until this morning. Blood sugar currently at 200s. A lot of education regarding food and fluid choices for diabetic. Patient needs reminder that my phone of what he chose to drink or eat regarding blood sugar. Continued to report feeling paranoid that people are talking about him. He met with addiction team, expressed that he wants methadone helping for his pain and his substance use. Pending results Continue with Ativan taper. No safety concern in terms of suicidal thoughts and homicidal thoughts. Continue to monitor blood sugar. The pinching and feeling bugs on his skin could be from uncontrolled neuropathy as he did not have access to Lyrica for more than a month. Just recently restart. Pending wound consult. No medication change. Continue with current plan. Medication Compliance: Yes Side effects from medications: No Attending Groups: Intermittent Review of Systems Acute medical concerns: No Medical Review of Systems: unchanged Review of Systems Review of Systems Constitutional: Denies fatigue and Denies fever(s). Cardiovascular: Denies chest pain and Denies dyspnea Respiratory: Denies dyspnea Gastrointestinal: Denies abdominal pain Psychiatric: denies suicidal ideation Endocrine: Denies fatigue On wheelchair with pressure ulcer on sacrium. Consult to Wound care team: pending Mental Status Exam Mental Status Exam Narrative: Appearance: Visible, no ADLs, shower this afternoon. grooming/hygiene fair. good eye contact Attitude:Cooperative Speech: Fluent and wnl in regard to volume, tone, prosody Motor activity: Calm and without any tics, tremors or dyskinesias. Mood: anxious Affect: appropriate Thought process: focus on medications. Organized enough to advocate for self. Thought content: No SI/SIB/HI Perception: Reports paranoid sometimes like bugs crawling on his skin but does not appear to respond to internal stimuli/psychotic Alert/oriented in all spheres Cognition grossly intact Insight: fair Judgment: fair Diagnostics Vital Signs (24Hr): Vital Signs - 24 hr 07/21/25 23:37 07/22/25 04:00 07/22/25 07:38 Temperature 97.4 F 98.1 F Pulse Rate 105 H 104 H 85 Respiratory Rate 18 16 20 Blood Pressure 139/86 140/88 H 151/89 H Pulse Oximetry 96 97 97 Oxygen Delivery Method Room Air Room Air Room Air 07/22/25 17:07 07/22/25 19:30 Temperature 97.2 F 97.1 F Pulse Rate 111 H 106 H Respiratory Rate 18 16 Blood Pressure 126/83 128/74 Pulse Oximetry 96 97 Oxygen Delivery Method Room Air Room Air BMI result Body Mass Index 35.4 Labs 07/21/25 19:26 07/21/25 19:26 Labs: Laboratory Results - last 48 hr 07/21/25 07/21/25 07/21/25 07:10 11:37 16:37 WBC RBC Hgb Hct MCV MCH MCHC RDW Plt Count MPV Immature Gran % (Auto) Neut % (Auto) Lymph % (Auto) Griggs % (Auto) Eos % (Auto) Baso % (Auto) Lymph # (Auto) Griggs # (Auto) Eos # (Auto) Baso # (Auto) Abs Immat Gran (auto) Absolute Neuts (auto) Absolute Nucleated RBC Nucleated RBC % (auto) VBG pH VBG pCO2 VBG pO2 VBG HCO3 VBG O2 Saturation VBG Base Excess Sodium Potassium Chloride Carbon Dioxide Anion Gap BUN Creatinine Estim Creat Clear Calc Estimated GFR POC Glucose 236 H 356 H* 466 H* Random Glucose Calcium Total Bilirubin AST ALT Alkaline Phosphatase Total Protein Albumin Beta-Hydroxybutyrate Urine Color Urine Appearance Urine pH Ur Specific Elmo Urine Protein Urine Glucose (UA) Urine Ketones Urine Blood Urine Nitrite Ur Leukocyte Esterase Urine RBC Urine WBC Ur Squamous Epith Cells Urine Bacteria Hyaline Casts 07/21/25 07/21/25 07/21/25 18:42 19:26 19:35 WBC 3.9 L RBC 5.01 Hgb 12.9 L Hct 40.3 L MCV 80.4 MCH 25.7 L MCHC 32.0 RDW 15.9 Plt Count 144 L D MPV 11.3 Immature Gran % (Auto) 0.5 H Neut % (Auto) 60.0 Lymph % (Auto) 28.2 Griggs % (Auto) 9.7 Eos % (Auto) 1.3 Baso % (Auto) 0.3 Lymph # (Auto) 1.1 L Griggs # (Auto) 0.4 Eos # (Auto) 0.1 Baso # (Auto) 0.0 Abs Immat Gran (auto) 0.02 Absolute Neuts (auto) 2.4 Absolute Nucleated RBC 0.000 Nucleated RBC % (auto) 0.0 VBG pH VBG pCO2 VBG pO2 VBG HCO3 VBG O2 Saturation VBG Base Excess Sodium 136 Potassium 4.4 Chloride 105 Carbon Dioxide 20 L Anion Gap 15 BUN 14 Creatinine 0.96 Estim Creat Clear Calc 140.8 Estimated GFR > 60 POC Glucose 523 H* Random Glucose 521 H* Calcium 9.3 Total Bilirubin 0.3 AST 32 ALT 37 Alkaline Phosphatase 152 H Total Protein 6.9 Albumin 4.3 Beta-Hydroxybutyrate 0.11 Urine Color Yellow Urine Appearance Clear Urine pH 6.0 Ur Specific Elmo 1.025 Urine Protein Negative Urine Glucose (UA) >=1000 H Urine Ketones Trace Urine Blood Negative Urine Nitrite Negative Ur Leukocyte Esterase Negative Urine RBC 0-2 Urine WBC 0-5 Ur Squamous Epith Cells 0-2 Urine Bacteria None Seen Hyaline Casts 0-2 07/21/25 07/21/25 07/21/25 19:59 20:10 21:07 WBC RBC Hgb Hct MCV MCH MCHC RDW Plt Count MPV Immature Gran % (Auto) Neut % (Auto) Lymph % (Auto) Griggs % (Auto) Eos % (Auto) Baso % (Auto) Lymph # (Auto) Griggs # (Auto) Eos # (Auto) Baso # (Auto) Abs Immat Gran (auto) Absolute Neuts (auto) Absolute Nucleated RBC Nucleated RBC % (auto) VBG pH 7.34 VBG pCO2 46 VBG pO2 39 VBG HCO3 25 VBG O2 Saturation 56.0 VBG Base Excess -0.8 Sodium Potassium Chloride Carbon Dioxide Anion Gap BUN Creatinine Estim Creat Clear Calc Estimated GFR POC Glucose 527 H* 402 H* Random Glucose Calcium Total Bilirubin AST ALT Alkaline Phosphatase Total Protein Albumin Beta-Hydroxybutyrate Urine Color Urine Appearance Urine pH Ur Specific Elmo Urine Protein Urine Glucose (UA) Urine Ketones Urine Blood Urine Nitrite Ur Leukocyte Esterase Urine RBC Urine WBC Ur Squamous Epith Cells Urine Bacteria Hyaline Casts 07/21/25 07/21/25 07/22/25 22:03 23:04 00:13 WBC RBC Hgb Hct MCV MCH MCHC RDW Plt Count MPV Immature Gran % (Auto) Neut % (Auto) Lymph % (Auto) Griggs % (Auto) Eos % (Auto) Baso % (Auto) Lymph # (Auto) Griggs # (Auto) Eos # (Auto) Baso # (Auto) Abs Immat Gran (auto) Absolute Neuts (auto) Absolute Nucleated RBC Nucleated RBC % (auto) VBG pH VBG pCO2 VBG pO2 VBG HCO3 VBG O2 Saturation VBG Base Excess Sodium Potassium Chloride Carbon Dioxide Anion Gap BUN Creatinine Estim Creat Clear Calc Estimated GFR POC Glucose 316 H 300 H 235 H Random Glucose Calcium Total Bilirubin AST ALT Alkaline Phosphatase Total Protein Albumin Beta-Hydroxybutyrate Urine Color Urine Appearance Urine pH Ur Specific Elmo Urine Protein Urine Glucose (UA) Urine Ketones Urine Blood Urine Nitrite Ur Leukocyte Esterase Urine RBC Urine WBC Ur Squamous Epith Cells Urine Bacteria Hyaline Casts 07/22/25 07/22/25 07/22/25 01:09 02:03 04:06 WBC RBC Hgb Hct MCV MCH MCHC RDW Plt Count MPV Immature Gran % (Auto) Neut % (Auto) Lymph % (Auto) Griggs % (Auto) Eos % (Auto) Baso % (Auto) Lymph # (Auto) Griggs # (Auto) Eos # (Auto) Baso # (Auto) Abs Immat Gran (auto) Absolute Neuts (auto) Absolute Nucleated RBC Nucleated RBC % (auto) VBG pH VBG pCO2 VBG pO2 VBG HCO3 VBG O2 Saturation VBG Base Excess Sodium Potassium Chloride Carbon Dioxide Anion Gap BUN Creatinine Estim Creat Clear Calc Estimated GFR POC Glucose 225 H 213 H 212 H Random Glucose Calcium Total Bilirubin AST ALT Alkaline Phosphatase Total Protein Albumin Beta-Hydroxybutyrate Urine Color Urine Appearance Urine pH Ur Specific Elmo Urine Protein Urine Glucose (UA) Urine Ketones Urine Blood Urine Nitrite Ur Leukocyte Esterase Urine RBC Urine WBC Ur Squamous Epith Cells Urine Bacteria Hyaline Casts 07/22/25 07/22/25 07/22/25 06:06 07:47 10:30 WBC RBC Hgb Hct MCV MCH MCHC RDW Plt Count MPV Immature Gran % (Auto) Neut % (Auto) Lymph % (Auto) Griggs % (Auto) Eos % (Auto) Baso % (Auto) Lymph # (Auto) Griggs # (Auto) Eos # (Auto) Baso # (Auto) Abs Immat Gran (auto) Absolute Neuts (auto) Absolute Nucleated RBC Nucleated RBC % (auto) VBG pH VBG pCO2 VBG pO2 VBG HCO3 VBG O2 Saturation VBG Base Excess Sodium Potassium Chloride Carbon Dioxide Anion Gap BUN Creatinine Estim Creat Clear Calc Estimated GFR POC Glucose 233 H 214 H 216 H Random Glucose Calcium Total Bilirubin AST ALT Alkaline Phosphatase Total Protein Albumin Beta-Hydroxybutyrate Urine Color Urine Appearance Urine pH Ur Specific Elmo Urine Protein Urine Glucose (UA) Urine Ketones Urine Blood Urine Nitrite Ur Leukocyte Esterase Urine RBC Urine WBC Ur Squamous Epith Cells Urine Bacteria Hyaline Casts 07/22/25 07/22/25 07/22/25 11:46 16:47 20:03 WBC RBC Hgb Hct MCV MCH MCHC RDW Plt Count MPV Immature Gran % (Auto) Neut % (Auto) Lymph % (Auto) Griggs % (Auto) Eos % (Auto) Baso % (Auto) Lymph # (Auto) Griggs # (Auto) Eos # (Auto) Baso # (Auto) Abs Immat Gran (auto) Absolute Neuts (auto) Absolute Nucleated RBC Nucleated RBC % (auto) VBG pH VBG pCO2 VBG pO2 VBG HCO3 VBG O2 Saturation VBG Base Excess Sodium Potassium Chloride Carbon Dioxide Anion Gap BUN Creatinine Estim Creat Clear Calc Estimated GFR POC Glucose 229 H 208 H 299 H Random Glucose Calcium Total Bilirubin AST ALT Alkaline Phosphatase Total Protein Albumin Beta-Hydroxybutyrate Urine Color Urine Appearance Urine pH Ur Specific Elmo Urine Protein Urine Glucose (UA) Urine Ketones Urine Blood Urine Nitrite Ur Leukocyte Esterase Urine RBC Urine WBC Ur Squamous Epith Cells Urine Bacteria Hyaline Casts Medications Medications Current Medications Acetaminophen (Acetaminophen 325 Mg Tablet) 650 mg PO Q6H PRN PRN Reason: Headache/Pain, Scale 1-10 Al Hydroxide/Mg Hydroxide (Magnesium Hydrox/Alum Hydrox 30 Ml Oral.Susp) 30 ml PO Q6H PRN PRN Reason: Heartburn/Nausea Cyanocobalamin (Cyanocobalamin (Vitamin B-12) 1,000 Mcg Tablet) 1,000 mcg PO DAILY [facility] Last Admin: 07/22/25 08:21 Dose: 1,000 mcg Dextrose (Dextrose 50 % 25 Gm/50 Ml Syringe) 25 gm IVPUSH Q15M PRN; Protocol PRN Reason: per Hypoglycemia Standing Ord. Divalproex Sodium (Divalproex Sodium Er 500 Mg Tab.Er.24h) 500 mg PO DAILY [facility] Last Admin: 07/22/25 08:20 Dose: 500 mg Divalproex Sodium (Divalproex Sodium Er 500 Mg Tab.Er.24h) 1,000 mg PO BEDTIME [facility] Last Admin: 07/22/25 20:36 Dose: 1,000 mg Glucose (Glucose Gel 15 Gm Gel..Gram.) 15 gm PO Q15M PRN; Protocol PRN Reason: per Hypoglycemia Standing Ord. Guanfacine HCl (Guanfacine Hcl Er 1 Mg Tab.Er.24h) 1 mg PO DAILY [facility] Last Admin: 07/22/25 08:22 Dose: 1 mg Haloperidol (Haloperidol 5 Mg Tablet) 10 mg PO BID PRN PRN Reason: agitation Last Admin: 07/22/25 11:03 Dose: 10 mg Hydroxyzine HCl (Hydroxyzine Hcl 50 Mg Tablet) 50 mg PO TID [facility] Last Admin: 07/22/25 20:36 Dose: 50 mg Hydroxyzine HCl (Hydroxyzine Hcl 50 Mg Tablet) 50 mg PO Q6H PRN PRN Reason: mild anxiety Last Admin: 07/21/25 22:12 Dose: 50 mg Insulin Glargine (Insulin Glargine,Hum.Rec.Anlog 100 Unit/Ml 10 Ml Vial) 26 unit SUBCUT BEDTIME [facility] Last Admin: 07/22/25 20:34 Dose: 26 unit Insulin Human Lispro (Insulin Lispro 100 Unit/Ml 3 Ml Vial) 0 unit SUBCUT QIDACHS [facility]; Protocol Last Admin: 07/22/25 20:34 Dose: 6 unit Loperamide HCl (Loperamide Hcl 2 Mg Capsule) 2 mg PO Q6H PRN PRN Reason: Diarrhea Lorazepam (Lorazepam 1 Mg Tablet) 1 mg PO BID [facility] Stop: 07/23/25 09:01 Last Admin: 07/22/25 20:37 Dose: 1 mg Magnesium Hydroxide (Milk Of Magnesia 30 Ml Oral.Susp) 30 ml PO DAILY PRN PRN Reason: Constipation Mirtazapine (Mirtazapine 15 Mg Tablet) 15 mg PO BEDTIME [facility] Last Admin: 07/22/25 20:36 Dose: 15 mg Nicotine (Nicotine 21 Mg Patch.Td24) 21 mg TRANSDERMA DAILY PRN PRN Reason: nicotine craving Last Admin: 07/22/25 12:03 Dose: 21 mg Nicotine Polacrilex (Nicotine Polacrilex 2 Mg Gum) 2 mg BUCCAL Q2H PRN PRN Reason: Nicotine Cravings Omeprazole (Omeprazole 40 Mg Capsule.Dr) 40 mg PO BID@0630,1630 [facility] Last Admin: 07/22/25 17:06 Dose: 40 mg Ondansetron HCl (Ondansetron Odt 4 Mg Tab.Rapdis) 4 mg TRANSLINGU Q8H PRN PRN Reason: Nausea and Vomiting Last Admin: 07/19/25 16:09 Dose: 4 mg Pregabalin (Pregabalin 100 Mg Capsule) 100 mg PO BID [facility] Last Admin: 07/22/25 20:37 Dose: 100 mg Quetiapine Fumarate (Quetiapine Fumarate 200 Mg Tablet) 200 mg PO BEDTIME [facility] Last Admin: 07/22/25 20:36 Dose: 200 mg Quetiapine Fumarate (Quetiapine Fumarate 50 Mg Tablet) 50 mg PO BID@0900,1500 [facility] Last Admin: 07/22/25 15:56 Dose: 50 mg Sertraline HCl (Sertraline Hcl 50 Mg Tablet) 150 mg PO DAILY [facility] Last Admin: 07/22/25 08:19 Dose: 150 mg Thiamine HCl (Thiamine Hcl 100 Mg Tablet) 100 mg PO DAILY [facility] Last Admin: 07/22/25 08:20 Dose: 100 mg Trazodone HCl (Trazodone Hcl 50 Mg Tablet) 50 mg PO BEDTIME MRX1 PRN PRN Reason: Insomnia Allergies Allergies Allergy/AdvReac Type Severity Reaction Status Date / Time baclofen Allergy Hives Verified 07/15/25 22:05 escitalopram (From Lexapro) Allergy Vomiting Verified 07/15/25 22:05 lithium Allergy Unresponsiv Verified 07/15/25 22:05 e metformin Allergy Unknown Verified 07/15/25 22:05 morphine Allergy Hives Verified 07/15/25 22:05 sulfamethoxazole (From Allergy Hives Verified 07/15/25 22:05 Bactrim) tramadol Allergy Hives Verified 07/15/25 22:05 trimethoprim (From Bactrim) Allergy Hives Verified 07/15/25 22:05 Assessment & Plan Assessment & Plan (1) Bipolar disorder: Status: Acute Code(s): F31.9 - Bipolar disorder, unspecified (2) PTSD (post-traumatic stress disorder): Status: Acute Code(s): F43.10 - Post-traumatic stress disorder, unspecified (3) Alcohol use disorder, severe, dependence: Status: Acute Code(s): F10.20 - Alcohol dependence, uncomplicated (4) Sacral decubitus ulcer: Qualifiers: Pressure injury stage: unspecified pressure injury stage Qualified Code(s): L89.159 - Pressure ulcer of sacral region, unspecified stage Status: Acute Code(s): L89.159 - Pressure ulcer of sacral region, unspecified stage (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 (6) Osteomyelitis: Qualifiers: Osteomyelitis type: unspecified type Osteomyelitis location: u nspecified site Qualified Code(s): M86.9 - Osteomyelitis, unspecified Status: Acute Code(s): M86.9 - Osteomyelitis, unspecified Plan HPI: Patient is a 40 y.o single Japanese speaking male with history of Bipolar II, PTSD, and Medical hx of Guillian Camden syndrome wheelchair-bound,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 Patient was tearful at bedside. Report I cannot take it anymore . I would rather be . I have more reasons to than to live . I have also been seeing bugs that are crawling everywhere . Hospital course: 07/19/25: Re-start all home meds Re-start on Lyrica at lower dose for nerve pain: 50mg BID Will address with patient regarding Guanfacine IR and ER as we do not carry IR form and patient takes it PRN. Monitor for BS via Diabetic protocol Monitor for alcohol W/D with PRN Ativan. 07/20: Pt received one time dose of IM haldol 5 mg per his request for severe anxiety related to potential that he will have to return to the streets upon d/c. Increased prn seroquel to 50 mg tid. He hopes to be able to rent a room but needs an ID card. 07/21/25: Met with patient after lunch. Patient reports very anxious, but denies suicidal thoughts. Reports sometimes he feels paranoid, and feeling bugs crawling on his skin. Nursing contact this provider a couple of times due to patient requests for Haldol for anxiety. Given Haldol 10 mg x 1, with moderate effect. Review changes in terms of medication with patient. Patient is grateful and appreciate the change made. Patient remain on Ativan taper. This is his 5th day without alcohol. Incongruent with mood. Appeared to have medication seeking behavior. He asked about phenobarbital. Assure patient that this is his 5th day, and he is on Ativan taper. It should be enough to cover for any withdrawal if he has any. Nursing also contact for elevated blood sugar which patient observed eating and drinking the ensure in the afternoon before dinner. Patient is receptive with the medication plan, a shower, slept for 8 hours. Medication compliant. Denies side effects. Remain on 5 minute checks due to wheelchair. Increase Lyrica to b.i.d. for neuropathy Schedule guanfacine 1mg daily At Haldol 10 mg b.i.d. p.r.n. for severe agitation/psychosis Increase Seroquel up to 200 at bedtime. DC or the PRNs Scheduled Seroquel 50 b.i.d. at 0900 and 1500 Increase Depakote from 250 b.i.d. to 1500 at bedtime. Continue with Ativan taper 07/22/25: Per hospitalist note in the afternoon/evening on 07/21: Notified by Psychiatry that pt's BG is elevated, 527 and requesting consult for pt to be seen. UA, CBC and BMP were already sent, In the interim, R insulin IV ordered 10 u and IVF bolus and hourly rate also ordered. 2034 Labs reveal CO2 20, AG 15 (closed), >1000 glucose in urine, trace ketones. No DKA. Pt seen and examined, is ALert and orientated X3, NAD, not diaphoretic. Pt has usual wound on sacrum/coccyx area that is stable compared to previous admissions. No new wounds on RLE. Currently plan is to add lantus 26 U HS, continue IVF and monitor BG hourly until less than 400, then Q2 hours overnight. Currently pt does not require transfer to medical surgical floor Patient continued to get monitor blood sugar and IV normal saline until this morning. Blood sugar currently at 200s. A lot of education regarding food and fluid choices for diabetic. Patient needs reminder that my phone of what he chose to drink or eat regarding blood sugar. Continued to report feeling paranoid that people are talking about him. He met with addiction team, expressed that he wants methadone helping for his pain and his substance use. Pending results Continue with Ativan taper. No safety concern in terms of suicidal thoughts and homicidal thoughts. Continue to monitor blood sugar. The pinching and feeling bugs on his skin could be from uncontrolled neuropathy as he did not have access to Lyrica for more than a month. Just recently restart. Pending wound consult. No medication change. Continue with current plan. Plan Patient on 5 minute checks for safety: Wheelchair. Admitted to M3. CV. Work with treatment team to do collateral for CSS/CCS if possible for aftercare. Refer to patient to alternative financing specialist: declined. Contact the hospitalist regarding hospitalist consultation on admission:seen by Hospitalist. Consult in for wound/pressure ulcer: pending Patient educated on: diagnosis, medication risk/benefits, substance abuse and therapeutic strategies Reason for continued inpatient stay Substantial Risk for: med/psych decompensation Time Spent With Patient Time: Total time managing care of this patient today ____ minutes.
[2025-07-23 07:13] LABS: Glucose, Whole Blood 253 mg/dL (60-115)
[2025-07-23 08:00] VITALS: BP 138/77; PULSE 111; RESP 20; TEMP 36.4; O2SAT 98
[2025-07-23] MEDS: guanFACINE HCl ER 1 MG TAB.ER.24H PO (08:22)
--- NOTE | 2025-07-23 08:24 | HO.PM.IMPN ---
Subjective Subjective Date of Service: 07/23/25 Interval History: Patient is seen in follow up for wound. 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 Wound is without any redness, drainage, or pain. Patient was started on Lantus 26 units, blood pressure continued to be elevated in the 200 range. He denies any chest pain, shortness of breath, fever, chills, nausea vomiting or diarrhea. 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 Patient is tachycardic, denies any palpitations, chest pain, dyspnea or syncope. His TSH is noted to be 1.74. His B12 level is low, he is on supplementation. Review of Systems Denies any shortness of breath, chest pain, headaches, dysuria, abdominal pain or discomfort, nausea, vomiting or diarrhea. Denies fever or chills. Physical Exam Exam: Exam: Alert and oriented X3, calm and cooperative. Answers questions. Neuro: CN II-X11 intact, no deficits, visual acuity intact EYES: PERRLA, EOM intact ENT: Hearing intact, MMM Cardiac: S1 S2 RRR, No ectopy Pulmonary: lungs clear to auscultation, No increased WOB. Abdominal: BS active in all 4 quadrants, no guarding or tenderness MSK: Strength 5/5 upper and lower extremities : Deferred Extremities: No edema in lower extremities Psych: Mood stable, Quiet and cooperative. Skin: Warm and dry, Intact. Sacral chronic wounds without redness warmth or drainage. Vital Signs: Vital Signs: Last Vital Signs Temp 97.6 F 07/23/25 08:00 Pulse 111 H 07/23/25 08:00 Resp 20 07/23/25 08:00 BP 138/77 07/23/25 08:00 Pulse Ox 98 07/23/25 08:00 O2 Del Method Room Air 07/23/25 08:00 BMI result Body Mass Index 35.4 Objective Data Active Medications Acetaminophen (Acetaminophen 325 Mg Tablet) 650 mg PO Q6H PRN PRN Reason: Headache/Pain, Scale 1-10 Al Hydroxide/Mg Hydroxide (Magnesium Hydrox/Alum Hydrox 30 Ml Oral.Susp) 30 ml PO Q6H PRN PRN Reason: Heartburn/Nausea Cyanocobalamin (Cyanocobalamin (Vitamin B-12) 1,000 Mcg Tablet) 1,000 mcg PO DAILY [facility] Last Admin: 07/22/25 08:21 Dose: 1,000 mcg Documented By: JANETH Dextrose (Dextrose 50 % 25 Gm/50 Ml Syringe) 25 gm IVPUSH Q15M PRN; Protocol PRN Reason: per Hypoglycemia Standing Ord. Divalproex Sodium (Divalproex Sodium Er 500 Mg Tab.Er.24h) 500 mg PO DAILY [facility] Last Admin: 07/22/25 08:20 Dose: 500 mg Documented By: JANETH Divalproex Sodium (Divalproex Sodium Er 500 Mg Tab.Er.24h) 1,000 mg PO BEDTIME [facility] Last Admin: 07/22/25 20:36 Dose: 1,000 mg Documented By: NUSRAT Glucose (Glucose Gel 15 Gm Gel..Gram.) 15 gm PO Q15M PRN; Protocol PRN Reason: per Hypoglycemia Standing Ord. Guanfacine HCl (Guanfacine Hcl Er 1 Mg Tab.Er.24h) 1 mg PO DAILY [facility] Last Admin: 07/22/25 08:22 Dose: 1 mg Documented By: JANETH Haloperidol (Haloperidol 5 Mg Tablet) 10 mg PO BID PRN PRN Reason: agitation Last Admin: 07/23/25 05:59 Dose: 10 mg Documented By: NUSRAT Hydroxyzine HCl (Hydroxyzine Hcl 50 Mg Tablet) 50 mg PO TID [facility] Last Admin: 07/22/25 20:36 Dose: 50 mg Documented By: NUSRAT Hydroxyzine HCl (Hydroxyzine Hcl 50 Mg Tablet) 50 mg PO Q6H PRN PRN Reason: mild anxiety Last Admin: 07/21/25 22:12 Dose: 50 mg Documented By: ARMIDA Insulin Glargine (Insulin Glargine,Hum.Rec.Anlog 100 Unit/Ml 10 Ml Vial) 26 unit SUBCUT BEDTIME [facility] Last Admin: 07/22/25 20:34 Dose: 26 unit Documented By: NUSRAT Insulin Human Lispro (Insulin Lispro 100 Unit/Ml 3 Ml Vial) 0 unit SUBCUT QIDACHS [facility]; Protocol Last Admin: 07/23/25 07:52 Dose: 6 unit Documented By: FRANCO Loperamide HCl (Loperamide Hcl 2 Mg Capsule) 2 mg PO Q6H PRN PRN Reason: Diarrhea Lorazepam (Lorazepam 1 Mg Tablet) 1 mg PO BID [facility] Stop: 07/23/25 09:01 Last Admin: 07/22/25 20:37 Dose: 1 mg Documented By: NUSRAT Magnesium Hydroxide (Milk Of Magnesia 30 Ml Oral.Susp) 30 ml PO DAILY PRN PRN Reason: Constipation Mirtazapine (Mirtazapine 15 Mg Tablet) 15 mg PO BEDTIME [facility] Last Admin: 07/22/25 20:36 Dose: 15 mg Documented By: NUSRAT Nicotine (Nicotine 21 Mg Patch.Td24) 21 mg TRANSDERMA DAILY PRN PRN Reason: nicotine craving Last Admin: 07/22/25 12:03 Dose: 21 mg Documented By: JANETH Nicotine Polacrilex (Nicotine Polacrilex 2 Mg Gum) 2 mg BUCCAL Q2H PRN PRN Reason: Nicotine Cravings Omeprazole (Omeprazole 40 Mg Capsule.Dr) 40 mg PO BID@0630,1630 [facility] Last Admin: 07/23/25 05:59 Dose: 40 mg Documented By: NUSRAT Ondansetron HCl (Ondansetron Odt 4 Mg Tab.Rapdis) 4 mg TRANSLINGU Q8H PRN PRN Reason: Nausea and Vomiting Last Admin: 07/19/25 16:09 Dose: 4 mg Documented By: JANETH Pregabalin (Pregabalin 100 Mg Capsule) 100 mg PO BID [facility] Last Admin: 07/22/25 20:37 Dose: 100 mg Documented By: NUSRAT Quetiapine Fumarate (Quetiapine Fumarate 200 Mg Tablet) 200 mg PO BEDTIME [facility] Last Admin: 07/22/25 20:36 Dose: 200 mg Documented By: NUSRAT Quetiapine Fumarate (Quetiapine Fumarate 50 Mg Tablet) 50 mg PO BID@0900,1500 [facility] Last Admin: 07/22/25 15:56 Dose: 50 mg Documented By: JANETH Sertraline HCl (Sertraline Hcl 50 Mg Tablet) 150 mg PO DAILY [facility] Last Admin: 07/22/25 08:19 Dose: 150 mg Documented By: JANETH Thiamine HCl (Thiamine Hcl 100 Mg Tablet) 100 mg PO DAILY [facility] Last Admin: 07/22/25 08:20 Dose: 100 mg Documented By: HO.RICCIG Trazodone HCl (Trazodone Hcl 50 Mg Tablet) 50 mg PO BEDTIME MRX1 PRN PRN Reason: Insomnia Labs 07/21/25 19:26 07/21/25 19:26 Labs: Laboratory Results - last 24 hr 07/22/25 07/22/25 07/22/25 10:30 11:46 16:47 POC Glucose 216 H 229 H 208 H 07/22/25 07/23/25 20:03 07:09 POC Glucose 299 H 253 H Assessment and Plan (1) Sacral decubitus ulcer: Status: Acute (2) Hx of right BKA: Status: Acute Plan This is a 40 year old male with history of DM, PVD, h/o etoh dependence, liver cirrhosis, polyneuropathy, history of Guillain-[place], chronic sacral wound, history of C diff, PTSD, right BKA, wheelchair-bound admitted to inpatient psych for depression with SI Chronic sacral wound, persistent since 2006. History of osteomyelitis in the wound Not currently infected Wound consult for Local wound care IDDM with diabetic polyneuropathy Previously diet controlled, Hba1c 6.4 Continue to encourage compliance with diabetic diet Lispro sliding scale Lantus initiated, increase dosing to 30 Ublood sugars consistently in the 200 range Continue Lyrica 100 D ETOH use disorder No evidence of withdrawal B12 deficiency B12 level 187 Continue p.o. replacement Outpatient follow up Tachycardia Initial EKG with normal sinus rhythm at QTC within normal limits. We will need outpatient cardiology follow up if persistent Thank you for allowing us to participate in the care of this patient. There are no acute medical issues at this time. Quality Stroke Does the patient have a stroke diagnosis?: No VTE Prior VTE?: No VTE Risk Level:: Medical - low VTE Device Contraindication: Treatment Not Indicated VTE Drug Contraindication: Treatment Not Indicated
--- NOTE | 2025-07-23 11:25 | PC.ADMIT ---
Patient cannot receive the flu vaccine as he had Guillain-[place] within 6 weeks of receiving the vaccination
[2025-07-23 11:54] LABS: Glucose, Whole Blood 233 mg/dL (60-115)
[2025-07-23 12:00] VITALS: BP 129/89; PULSE 121; RESP 19; O2SAT 98
--- NOTE | 2025-07-23 15:47 | MHC.RECOVRN ---
Met with Yeimy Kent NP to discuss pt's concerns. After consulting with provider I met with pt and we discussed how methadone is not the best option for his needs at this time. We discussed pain clinic and pt. agreed. Message sent to social media community manager Taylor requesting she assist pt. with pain clinic resources. No further issues/concerns from pt. at this time.
[2025-07-23 16:00] VITALS: BP 134/80; PULSE 110; RESP 18; TEMP 36.2; O2SAT 97
[2025-07-23 16:58] LABS: Glucose, Whole Blood 357 mg/dL (60-115)
--- NOTE | 2025-07-23 18:08 | P.PNPSI_ITS ---
Subjective Subjective Date of Service: 07/23/25 Reason For Visit: SI Subjective Notes: Conditional Voluntary Interim History: Chart reviewed. Case discussed w team. Pt reports that he plans to go to [facility] upon d/c. Feels safe w/ plan to d/c there on Wed. Mood has improved overall. He denies current SI. Denies violent ideation, AHVH. Reports good sleep/appetite. He reports that he saw the wound care nurse for his sacral ulcer and they will f/u with him. He denies significant pain today. He denies sx of w/d. Visible in milieu Mental Status Exam Mental Status Exam Narrative: Appearance: was lying in bed, sat up for interview. grooming/hygiene fair. good eye contact Attitude:Cooperative Speech: Fluent and wnl in regard to volume, tone, prosody Motor activity: Calm and without any tics, tremors or dyskinesias. Mood: better Affect: appropriate, reactive Thought process: goal directed and without evidence of formal thought disorder Thought content: Denies SI/violent ideation Perception: Denies AH/VH and does not appear to respond to internal stimuli Alert/oriented in all spheres Cognition grossly intact Insight: fair Judgment: intact Diagnostics Vital Signs (24Hr): Vital Signs - 24 hr 07/22/25 19:30 07/23/25 08:00 07/23/25 12:00 Temperature 97.1 F 97.6 F Pulse Rate 106 H 111 H 121 H Respiratory Rate 16 20 19 Blood Pressure 128/74 138/77 129/89 Pulse Oximetry 97 98 98 Oxygen Delivery Method Room Air Room Air Room Air 07/23/25 16:00 Temperature 97.1 F Pulse Rate 110 H Respiratory Rate 18 Blood Pressure 134/80 Pulse Oximetry 97 Oxygen Delivery Method Room Air BMI result Body Mass Index 35.4 Labs 07/21/25 19:26 07/21/25 19:26 Labs: Laboratory Results - last 48 hr 07/21/25 07/21/25 07/21/25 18:42 19:26 19:35 WBC 3.9 L RBC 5.01 Hgb 12.9 L Hct 40.3 L MCV 80.4 MCH 25.7 L MCHC 32.0 RDW 15.9 Plt Count 144 L D MPV 11.3 Immature Gran % (Auto) 0.5 H Neut % (Auto) 60.0 Lymph % (Auto) 28.2 [place] % (Auto) 9.7 Eos % (Auto) 1.3 Baso % (Auto) 0.3 Lymph # (Auto) 1.1 L [place] # (Auto) 0.4 Eos # (Auto) 0.1 Baso # (Auto) 0.0 Abs Immat Gran (auto) 0.02 Absolute Neuts (auto) 2.4 Absolute Nucleated RBC 0.000 Nucleated RBC % (auto) 0.0 VBG pH VBG pCO2 VBG pO2 VBG HCO3 VBG O2 Saturation VBG Base Excess Sodium 136 Potassium 4.4 Chloride 105 Carbon Dioxide 20 L Anion Gap 15 BUN 14 Creatinine 0.96 Estim Creat Clear Calc 140.8 Estimated GFR > 60 POC Glucose 523 H* Random Glucose 521 H* Calcium 9.3 Total Bilirubin 0.3 AST 32 ALT 37 Alkaline Phosphatase 152 H Total Protein 6.9 Albumin 4.3 Beta-Hydroxybutyrate 0.11 Urine Color Yellow Urine Appearance Clear Urine pH 6.0 Ur Specific Cinebar 1.025 Urine Protein Negative Urine Glucose (UA) >=1000 H Urine Ketones Trace Urine Blood Negative Urine Nitrite Negative Ur Leukocyte Esterase Negative Urine RBC 0-2 Urine WBC 0-5 Ur Squamous Epith Cells 0-2 Urine Bacteria None Seen Hyaline Casts 0-2 07/21/25 07/21/25 07/21/25 19:59 20:10 21:07 WBC RBC Hgb Hct MCV MCH MCHC RDW Plt Count MPV Immature Gran % (Auto) Neut % (Auto) Lymph % (Auto) [place] % (Auto) Eos % (Auto) Baso % (Auto) Lymph # (Auto) [place] # (Auto) Eos # (Auto) Baso # (Auto) Abs Immat Gran (auto) Absolute Neuts (auto) Absolute Nucleated RBC Nucleated RBC % (auto) VBG pH 7.34 VBG pCO2 46 VBG pO2 39 VBG HCO3 25 VBG O2 Saturation 56.0 VBG Base Excess -0.8 Sodium Potassium Chloride Carbon Dioxide Anion Gap BUN Creatinine Estim Creat Clear Calc Estimated GFR POC Glucose 527 H* 402 H* Random Glucose Calcium Total Bilirubin AST ALT Alkaline Phosphatase Total Protein Albumin Beta-Hydroxybutyrate Urine Color Urine Appearance Urine pH Ur Specific Cine[place] Urine Protein Urine Glucose (UA) Urine Ketones Urine Blood Urine Nitrite Ur Leukocyte Esterase Urine RBC Urine WBC Ur Squamous Epith Cells Urine Bacteria Hyaline Casts 07/21/25 07/21/25 07/22/25 22:03 23:04 00:13 WBC RBC Hgb Hct MCV MCH MCHC RDW Plt Count MPV Immature Gran % (Auto) Neut % (Auto) Lymph % (Auto) [place] % (Auto) Eos % (Auto) Baso % (Auto) Lymph # (Auto) [place] # (Auto) Eos # (Auto) Baso # (Auto) Abs Immat Gran (auto) Absolute Neuts (auto) Absolute Nucleated RBC Nucleated RBC % (auto) VBG pH VBG pCO2 VBG pO2 VBG HCO3 VBG O2 Saturation VBG Base Excess Sodium Potassium Chloride Carbon Dioxide Anion Gap BUN Creatinine Estim Creat Clear Calc Estimated GFR POC Glucose 316 H 300 H 235 H Random Glucose Calcium Total Bilirubin AST ALT Alkaline Phosphatase Total Protein Albumin Beta-Hydroxybutyrate Urine Color Urine Appearance Urine pH Ur Specific [place]ine[place] Urine Protein Urine Glucose (UA) Urine Ketones Urine Blood Urine Nitrite Ur Leukocyte Esterase Urine RBC Urine WBC Ur Squamous Epith Cells Urine Bacteria Hyaline Casts 07/22/25 07/22/25 07/22/25 01:09 02:03 04:06 WBC RBC Hgb Hct MCV MCH MCHC RDW Plt Count MPV Immature Gran % (Auto) Neut % (Auto) Lymph % (Auto) [place] % (Auto) Eos % (Auto) Baso % (Auto) Lymph # (Auto) [place] # (Auto) Eos # (Auto) Baso # (Auto) Abs Immat Gran (auto) Absolute Neuts (auto) Absolute Nucleated RBC Nucleated RBC % (auto) VBG pH VBG pCO2 VBG pO2 VBG HCO3 VBG O2 Saturation VBG Base Excess Sodium Potassium Chloride Carbon Dioxide Anion Gap BUN Creatinine Estim Creat Clear Calc Estimated GFR POC Glucose 225 H 213 H 212 H Random Glucose Calcium Total Bilirubin AST ALT Alkaline Phosphatase Total Protein Albumin Beta-Hydroxybutyrate Urine Color Urine Appearance Urine pH Ur Specific [place]inebar Urine Protein Urine Glucose (UA) Urine Ketones Urine Blood Urine Nitrite Ur Leukocyte Esterase Urine RBC Urine WBC Ur Squamous Epith Cells Urine Bacteria Hyaline Casts 07/22/25 07/22/25 07/22/25 06:06 07:47 10:30 WBC RBC Hgb Hct MCV MCH MCHC RDW Plt Count MPV Immature Gran % (Auto) Neut % (Auto) Lymph % (Auto) [place] % (Auto) Eos % (Auto) Baso % (Auto) Lymph # (Auto) [place] # (Auto) Eos # (Auto) Baso # (Auto) Abs Immat Gran (auto) Absolute Neuts (auto) Absolute Nucleated RBC Nucleated RBC % (auto) VBG pH VBG pCO2 VBG pO2 VBG HCO3 VBG O2 Saturation VBG Base Excess Sodium Potassium Chloride Carbon Dioxide Anion Gap BUN Creatinine Estim Creat Clear Calc Estimated GFR POC Glucose 233 H 214 H 216 H Random Glucose Calcium Total Bilirubin AST ALT Alkaline Phosphatase Total Protein Albumin Beta-Hydroxybutyrate Urine Color Urine Appearance Urine pH Ur Specific [place]inebar Urine Protein Urine Glucose (UA) Urine Ketones Urine Blood Urine Nitrite Ur Leukocyte Esterase Urine RBC Urine WBC Ur Squamous Epith Cells Urine Bacteria Hyaline Casts 07/22/25 07/22/25 07/22/25 11:46 16:47 20:03 WBC RBC Hgb Hct MCV MCH MCHC RDW Plt Count MPV Immature Gran % (Auto) Neut % (Auto) Lymph % (Auto) [place] % (Auto) Eos % (Auto) Baso % (Auto) Lymph # (Auto) [place] # (Auto) Eos # (Auto) Baso # (Auto) Abs Immat Gran (auto) Absolute Neuts (auto) Absolute Nucleated RBC Nucleated RBC % (auto) VBG pH VBG pCO2 VBG pO2 VBG HCO3 VBG O2 Saturation VBG Base Excess Sodium Potassium Chloride Carbon Dioxide Anion Gap BUN Creatinine Estim Creat Clear Calc Estimated GFR POC Glucose 229 H 208 H 299 H Random Glucose Calcium Total Bilirubin AST ALT Alkaline Phosphatase Total Protein Albumin Beta-Hydroxybutyrate Urine Color Urine Appearance Urine pH Ur Specific [place]inebar Urine Protein Urine Glucose (UA) Urine Ketones Urine Blood Urine Nitrite Ur Leukocyte Esterase Urine RBC Urine WBC Ur Squamous Epith Cells Urine Bacteria Hyaline Casts 07/23/25 07/23/25 07/23/25 07:09 11:50 16:50 WBC RBC Hgb Hct MCV MCH MCHC RDW Plt Count MPV Immature Gran % (Auto) Neut % (Auto) Lymph % (Auto) [place] % (Auto) Eos % (Auto) Baso % (Auto) Lymph # (Auto) [place] # (Auto) Eos # (Auto) Baso # (Auto) Abs Immat Gran (auto) Absolute Neuts (auto) Absolute Nucleated RBC Nucleated RBC % (auto) VBG pH VBG pCO2 VBG pO2 VBG HCO3 VBG O2 Saturation VBG Base Excess Sodium Potassium Chloride Carbon Dioxide Anion Gap BUN Creatinine Estim Creat Clear Calc Estimated GFR POC Glucose 253 H 233 H 357 H* Random Glucose Calcium Total Bilirubin AST ALT Alkaline Phosphatase Total Protein Albumin Beta-Hydroxybutyrate Urine Color Urine Appearance Urine pH Ur Specific [place]inebar Urine Protein Urine Glucose (UA) Urine Ketones Urine Blood Urine Nitrite Ur Leukocyte Esterase Urine RBC Urine WBC Ur Squamous Epith Cells Urine Bacteria Hyaline Casts Medications Medications Current Medications Acetaminophen (Acetaminophen 325 Mg Tablet) 650 mg PO Q6H PRN PRN Reason: Headache/Pain, Scale 1-10 Al Hydroxide/Mg Hydroxide (Magnesium Hydrox/Alum Hydrox 30 Ml Oral.Susp) 30 ml PO Q6H PRN PRN Reason: Heartburn/Nausea Cyanocobalamin (Cyanocobalamin (Vitamin B-12) 1,000 Mcg Tablet) 1,000 mcg PO DAILY [facility] Last Admin: 07/23/25 08:22 Dose: 1,000 mcg Dextrose (Dextrose 50 % 25 Gm/50 Ml Syringe) 25 gm IVPUSH Q15M PRN; Protocol PRN Reason: per Hypoglycemia Standing Ord. Divalproex Sodium (Divalproex Sodium Er 500 Mg Tab.Er.24h) 500 mg PO DAILY [facility] Last Admin: 07/23/25 08:22 Dose: 500 mg Divalproex Sodium (Divalproex Sodium Er 500 Mg Tab.Er.24h) 1,000 mg PO BEDTIME [facility] Last Admin: 07/22/25 20:36 Dose: 1,000 mg Glucose (Glucose Gel 15 Gm Gel..Gram.) 15 gm PO Q15M PRN; Protocol PRN Reason: per Hypoglycemia Standing Ord. Guanfacine HCl (Guanfacine Hcl Er 1 Mg Tab.Er.24h) 1 mg PO DAILY [facility] Last Admin: 07/23/25 08:22 Dose: 1 mg Haloperidol (Haloperidol 5 Mg Tablet) 10 mg PO BID PRN PRN Reason: agitation Last Admin: 07/23/25 17:14 Dose: 10 mg Hydroxyzine HCl (Hydroxyzine Hcl 50 Mg Tablet) 50 mg PO TID [facility] Last Admin: 07/23/25 15:36 Dose: 50 mg Hydroxyzine HCl (Hydroxyzine Hcl 50 Mg Tablet) 50 mg PO Q6H PRN PRN Reason: mild anxiety Last Admin: 07/23/25 12:15 Dose: 50 mg Insulin Glargine (Insulin Glargine,Hum.Rec.Anlog 100 Unit/Ml 10 Ml Vial) 30 unit SUBCUT BEDTIME [facility] Insulin Human Lispro (Insulin Lispro 100 Unit/Ml 3 Ml Vial) 0 unit SUBCUT QIDACHS [facility]; Protocol Last Admin: 07/23/25 17:10 Dose: 10 unit Loperamide HCl (Loperamide Hcl 2 Mg Capsule) 2 mg PO Q6H PRN PRN Reason: Diarrhea Magnesium Hydroxide (Milk Of Magnesia 30 Ml Oral.Susp) 30 ml PO DAILY PRN PRN Reason: Constipation Mirtazapine (Mirtazapine 15 Mg Tablet) 15 mg PO BEDTIME [facility] Last Admin: 07/22/25 20:36 Dose: 15 mg Nicotine (Nicotine 21 Mg Patch.Td24) 21 mg TRANSDERMA DAILY PRN PRN Reason: nicotine craving Last Admin: 07/22/25 12:03 Dose: 21 mg Nicotine Polacrilex (Nicotine Polacrilex 2 Mg Gum) 2 mg BUCCAL Q2H PRN PRN Reason: Nicotine Cravings Omeprazole (Omeprazole 40 Mg Capsule.Dr) 40 mg PO BID@0630,1630 [facility] Last Admin: 07/23/25 17:11 Dose: 40 mg Ondansetron HCl (Ondansetron Odt 4 Mg Tab.Rapdis) 4 mg TRANSLINGU Q8H PRN PRN Reason: Nausea and Vomiting Last Admin: 07/19/25 16:09 Dose: 4 mg Pregabalin (Pregabalin 100 Mg Capsule) 100 mg PO BID [facility] Last Admin: 07/23/25 08:22 Dose: 100 mg Quetiapine Fumarate (Quetiapine Fumarate 200 Mg Tablet) 200 mg PO BEDTIME [facility] Last Admin: 07/22/25 20:36 Dose: 200 mg Quetiapine Fumarate (Quetiapine Fumarate 50 Mg Tablet) 50 mg PO BID@0900,1500 [facility] Last Admin: 07/23/25 15:36 Dose: 50 mg Sertraline HCl (Sertraline Hcl 50 Mg Tablet) 150 mg PO DAILY [facility] Last Admin: 07/23/25 08:22 Dose: 150 mg Thiamine HCl (Thiamine Hcl 100 Mg Tablet) 100 mg PO DAILY [facility] Last Admin: 07/23/25 08:22 Dose: 100 mg Trazodone HCl (Trazodone Hcl 50 Mg Tablet) 50 mg PO BEDTIME MRX1 PRN PRN Reason: Insomnia Allergies Allergies Allergy/AdvReac Type Severity Reaction Status Date / Time baclofen Allergy Hives Verified 07/15/25 22:05 escitalopram (From Lexapro) Allergy Vomiting Verified 07/15/25 22:05 fish derived (fish) Allergy Hives Verified 07/23/25 14:38 lithium Allergy Unresponsiv Verified 07/15/25 22:05 e metformin Allergy Unknown Verified 07/15/25 22:05 morphine Allergy Hives Verified 07/15/25 22:05 sulfamethoxazole (From Allergy Hives Verified 07/15/25 22:05 Bactrim) tramadol Allergy Hives Verified 07/15/25 22:05 trimethoprim (From Bactrim) Allergy Hives Verified 07/15/25 22:05 Assessment & Plan Assessment & Plan (1) Bipolar disorder: Status: Acute Code(s): F31.9 - Bipolar disorder, unspecified (2) PTSD (post-traumatic stress disorder): Status: Acute Code(s): F43.10 - Post-traumatic stress disorder, unspecified (3) Alcohol use disorder, severe, dependence: Status: Acute Code(s): F10.20 - Alcohol dependence, uncomplicated (4) Sacral decubitus ulcer: Qualifiers: Pressure injury stage: unspecified pressure injury stage Qualified Code(s): L89.159 - Pressure ulcer of sacral region, unspecified stage Status: Acute Code(s): L89.159 - Pressure ulcer of sacral region, unspecified stage (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 (6) Osteomyelitis: Qualifiers: Osteomyelitis location: unspecified site Osteomyelitis type: u nspecified type Qualified Code(s): M86.9 - Osteomyelitis, unspecified Status: Acute Code(s): M86.9 - Osteomyelitis, unspecified Plan HPI: Patient is a 40 y.o single Hungarian speaking male with history of Bipolar II, PTSD, and 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 Patient was tearful at bedside. Report I cannot take it anymore . I would rather be . I have more reasons to than to live . I have also been seeing bugs that are crawling everywhere . Hospital course: 07/19/25: Re-start all home meds Re-start on Lyrica at lower dose for nerve pain: 50mg BID Will address with patient regarding Guanfacine IR and ER as we do not carry IR form and patient takes it PRN. Monitor for BS via Diabetic protocol Monitor for alcohol W/D with PRN Ativan. 07/20: Pt received one time dose of IM haldol 5 mg per his request for severe anxiety related to potential that he will have to return to the streets upon d/c. Increased prn seroquel to 50 mg tid. He hopes to be able to rent a room but needs an ID card. 07/21/25: Met with patient after lunch. Patient reports very anxious, but denies suicidal thoughts. Reports sometimes he feels paranoid, and feeling bugs crawling on his skin. Nursing contact this provider a couple of times due to patient requests for Haldol for anxiety. Given Haldol 10 mg x 1, with moderate effect. Review changes in terms of medication with patient. Patient is grateful and appreciate the change made. Patient remain on Ativan taper. This is his 5th day without alcohol. Incongruent with mood. Appeared to have medication seeking behavior. He asked about phenobarbital. Assure patient that this is his 5th day, and he is on Ativan taper. It should be enough to cover for any withdrawal if he has any. Nursing also contact for elevated blood sugar which patient observed eating and drinking the ensure in the afternoon before dinner. Patient is receptive with the medication plan, a shower, slept for 8 hours. Medication compliant. Denies side effects. Remain on 5 minute checks due to wheelchair. Increase Lyrica to b.i.d. for neuropathy Schedule guanfacine 1mg daily At Haldol 10 mg b.i.d. p.r.n. for severe agitation/psychosis Increase Seroquel up to 200 at bedtime. DC or the PRNs Scheduled Seroquel 50 b.i.d. at 0900 and 1500 Increase Depakote from 250 b.i.d. to 1500 at bedtime. Continue with Ativan taper 07/22/25: Per hospitalist note in the afternoon/evening on 07/21: Notified by Psychiatry that pt's BG is elevated, 527 and requesting consult for pt to be seen. UA, CBC and BMP were already sent, In the interim, R insulin IV ordered 10 u and IVF bolus and hourly rate also ordered. 2034 Labs reveal CO2 20, AG 15 (closed), >1000 glucose in urine, trace ketones. No DKA. Pt seen and examined, is ALert and orientated X3, NAD, not diaphoretic. Pt has usual wound on sacrum/coccyx area that is stable compared to previous admissions. No new wounds on RLE. Currently plan is to add lantus 26 U HS, continue IVF and monitor BG hourly until less than 400, then Q2 hours overnight. Currently pt does not require transfer to medical surgical floor Patient continued to get monitor blood sugar and IV normal saline until this morning. Blood sugar currently at 200s. A lot of education regarding food and fluid choices for diabetic. Patient needs reminder that my phone of what he chose to drink or eat regarding blood sugar. Continued to report feeling paranoid that people are talking about him. He met with addiction team, expressed that he wants methadone helping for his pain and his substance use. Pending results Continue with Ativan taper. No safety concern in terms of suicidal thoughts and homicidal thoughts. Continue to monitor blood sugar. The pinching and feeling bugs on his skin could be from uncontrolled neuropathy as he did not have access to Lyrica for more than a month. Just recently restart. Pending wound consult. No medication change. Continue with current plan. 07/23: Pt did not ask t/w for any controlled meds today. Received last dose of scheduled lorazepam 1 mg this am for tx of ETOH w/d. Taper will continue with 0.5 mg bid x 2 days then d/c. Mood has improved. Denies SI. Will likely d/c on Wed to [facility] Plan Patient on 5 minute checks for safety: Wheelchair. Admitted to [facility]. CV. Work with treatment team to do collateral for CSS/CCS if possible for aftercare. Refer to patient to fiscal specialist: declined. Contact the hospitalist regarding hospitalist consultation on admission:seen by Hospitalist. Consult in for wound/pressure ulcer: pending Patient educated on: diagnosis, medication risk/benefits, substance abuse and therapeutic strategies Reason for continued inpatient stay Substantial Risk for: med/psych decompensation Time Spent With Patient Time: Total time managing care of this patient today ____ minutes.
[2025-07-23 20:00] VITALS: BP 143/83; PULSE 104; RESP 18; TEMP 35.6; O2SAT 98
[2025-07-23 20:36] LABS: Glucose, Whole Blood 436 mg/dL (60-115)
[2025-07-23] MEDS: Insulin Glargine,Hum.rec.anlog 100 UNIT/ML 10 ML VIAL 30 UNIT SUBCUT (20:54)
[2025-07-24 07:31] VITALS: BP 135/77; PULSE 107; RESP 18; TEMP 35.7; O2SAT 96
[2025-07-24 07:52] LABS: Glucose, Whole Blood 169 mg/dL (60-115)
[2025-07-24] MEDS: guanFACINE HCl ER 1 MG TAB.ER.24H PO (08:03)
[2025-07-24 12:00] VITALS: BP 130/80; PULSE 118; O2SAT 96
[2025-07-24 12:15] LABS: Glucose, Whole Blood 299 mg/dL (60-115)
[2025-07-24] MEDS: Magnesium Hydrox/Alum Hydrox 30 ML ORAL.SUSP PO (13:05)
--- NOTE | 2025-07-24 15:11 | HO.WOUND ---
Wound Consult: Initial 40yr old?male admitted to [facility] on 07/18/25 - See progress notes and H&P for detailed history.? Wound consult placed for Sacrum and left foot.? Patient agreeable to assessment and photo documentation.? Patient reports he is currently homeless and living on the street. He reports he does not use a assisted but does sleep in vacant buildings. He reports he is not able to apply dressing to the area of his sacrum but is able to apply cream if this were an option. Left Foot assessed for stable dry small pin point scab on toe and lateral foot - no open wound noted - painted with betadine and no topical recommendations needed at this time. The sacrum remains largely unchanged from last admission - s/p Flap and plastic reconstruction multiple times. Irregular healed tissue noted - scar tissue and thin covering over bone. Left Sacrum Etiology: ??Stage 4 Pressure Injury - Present on Admission Wound Bed: adherent white slough Drainage / Odor: scant serosang noted on hospital pants Edges: ? irregular scar tissue noted - irregular healing noted Katie wound: ? red pink intact tissue - evidence of old injury to bilateral ischium - No Induration, Fluctuance or Warmth noted Pain: pain and tenderness reported Goals of Treatment: ? off load Durafiber and foam while inpatient and triad at time of d/c Triad left with staff for d/c. Right BKA site - no open tissue noted - no topical wound recommendations needed at this time. Recommendations: 1. Turn and Reposition every 2 hours and as needed for patient comfort.? Use pillows or wedges to support off loading positions. 2. Off Load all bony prominences with use of pillows and heel boots if needed.? Apply Preventative foams where needed. ? 3. Monitor for incontinence and moisture control, use barrier creams when needed for prevention and treatment. 4. Provide adequate and supplemental nutrition.? 5. Order Specialty Bed from [employer] - Pulsate bed. 6. When applicable maintain blood glucose levels per Providers order. Right BKA - No topical interventions needed. Left Toes - Stable clean scabs - no topical interventions needed at this time. Sacrum - Off Load Pressure with Q2 hr turns and use of pillows - Cleanse with NS moist gauze. Apply skin prep allow to dry.? Apply Durafiber AG to wound bed cover with dry gauze to fill space, cover with ABD pad dressing or Foam dressing. Change every other day and PRN. Triad at time of d/c. Cleanse with PH balance spray or wipes, pat dry. ?Apply thin layer of Triad to wound bed - only pat and dab no scrub and rub when soiling occurs. Reapply thin layer PRN after each episode of incontinence. Re-consult wound care Nurse for wound deterioration or wound changes.
[2025-07-24 16:51] LABS: Glucose, Whole Blood 174 mg/dL (60-115)
[2025-07-24 19:50] VITALS: BP 129/78; PULSE 115; TEMP 36.3; O2SAT 98
[2025-07-24 20:05] LABS: Glucose, Whole Blood 313 mg/dL (60-115)
--- NOTE | 2025-07-24 20:11 | P.PNPSI_ITS ---
Subjective Subjective Date of Service: 07/24/25 Reason For Visit: SI Subjective Notes: Conditional Voluntary Interim History: Chart reviewed. Case discussed w/ team Lorazepam tapered to 0.5 mg bid. Pt endorsed sx of ETOH w/d to his nurse and requested additional meds after utilizing all of his prn's. Per SW, pt was anxious about the snow storm since he's planning to be [place] tomorrow [place] [facility]; however he still wants to go. He asked for an additional anxiety med just to take today, not to take with me . T/W rx'd a one extra dose of lorazepam 0.5 mg and met w/ pt about 1 hr later in his room. He was sound asleep but ultimately woke up to t/w calling his name. He reported feeling anxious, having cold sweats but appeared calm. He denied SI/violent ideation, AH/VH. He still wants to be d/c'd tomorrow to the [place] [facility]. If he can't get in tomorrow, he plans to ask his [employer] [employer] if he can stay w/him. Medication Compliance: Yes Side effects from medications: No Mental Status Exam Mental Status Exam Narrative: Appearance: lying in bed sound asleep but sat up right after t/w woke him up. Casually dressed. Grooming/hygiene wn. good eye contact Attitude:Cooperative Speech: Fluent and wnl in regard to volume, tone, prosody Motor activity: Calm and without any tics, tremors or dyskinesias. Mood: anxious Affect: calm, generally bright Thought process: goal directed and without evidence of formal thought disorder Thought content: Denies SI/violent ideation. Perception: Denies AH/VH and does not appear to respond to internal stimuli Alert/oriented in all spheres Cognition grossly intact Insight: fair Judgment: fair Diagnostics Vital Signs (24Hr): Vital Signs - 24 hr 07/24/25 07:31 07/24/25 12:00 07/24/25 19:50 Temperature 96.3 F L 97.4 F Pulse Rate 107 H 118 H 115 H Respiratory Rate 18 Blood Pressure 135/77 130/80 129/78 Pulse Oximetry 96 96 98 Oxygen Delivery Method Room Air Room Air Room Air BMI result Body Mass Index 35.4 Labs 07/21/25 19:26 07/21/25 19:26 Labs: Laboratory Results - last 48 hr 07/23/25 07/23/25 07/23/25 07:09 11:50 16:50 POC Glucose 253 H 233 H 357 H* 07/23/25 07/24/25 07/24/25 20:31 07:48 12:12 POC Glucose 436 H* 169 H 299 H 07/24/25 07/24/25 16:46 20:01 POC Glucose 174 H 313 H Medications Medications Current Medications Acetaminophen (Acetaminophen 325 Mg Tablet) 650 mg PO Q6H PRN PRN Reason: Headache/Pain, Scale 1-10 Al Hydroxide/Mg Hydroxide (Magnesium Hydrox/Alum Hydrox 30 Ml Oral.Susp) 30 ml PO Q6H PRN PRN Reason: Heartburn/Nausea Last Admin: 07/24/25 13:05 Dose: 30 ml Cyanocobalamin (Cyanocobalamin (Vitamin B-12) 1,000 Mcg Tablet) 1,000 mcg PO DAILY [facility] Last Admin: 07/24/25 08:03 Dose: 1,000 mcg Dextrose (Dextrose 50 % 25 Gm/50 Ml Syringe) 25 gm IVPUSH Q15M PRN; Protocol PRN Reason: per Hypoglycemia Standing Ord. Divalproex Sodium (Divalproex Sodium Er 500 Mg Tab.Er.24h) 500 mg PO DAILY [facility] Last Admin: 07/24/25 08:03 Dose: 500 mg Divalproex Sodium (Divalproex Sodium Er 500 Mg Tab.Er.24h) 1,000 mg PO BEDTIME [facility] Last Admin: 07/23/25 20:55 Dose: 1,000 mg Glucose (Glucose Gel 15 Gm Gel..Gram.) 15 gm PO Q15M PRN; Protocol PRN Reason: per Hypoglycemia Standing Ord. Guanfacine HCl (Guanfacine Hcl Er 1 Mg Tab.Er.24h) 1 mg PO DAILY [facility] Last Admin: 07/24/25 08:03 Dose: 1 mg Haloperidol (Haloperidol 5 Mg Tablet) 10 mg PO BID PRN PRN Reason: agitation Last Admin: 07/24/25 17:49 Dose: 10 mg Hydroxyzine HCl (Hydroxyzine Hcl 50 Mg Tablet) 50 mg PO Q6H PRN PRN Reason: mild anxiety Last Admin: 07/24/25 10:13 Dose: 50 mg Insulin Glargine (Insulin Glargine,Hum.Rec.Anlog 100 Unit/Ml 10 Ml Vial) 30 unit SUBCUT BEDTIME [facility] Last Admin: 07/23/25 20:54 Dose: 30 unit Insulin Human Lispro (Insulin Lispro 100 Unit/Ml 3 Ml Vial) 0 unit SUBCUT QIDACHS [facility]; Protocol Last Admin: 07/24/25 17:12 Dose: 2 unit Loperamide HCl (Loperamide Hcl 2 Mg Capsule) 2 mg PO Q6H PRN PRN Reason: Diarrhea Lorazepam (Lorazepam 0.5 Mg Tablet) 0.5 mg PO BID [facility] Stop: 07/25/25 09:01 Last Admin: 07/24/25 08:04 Dose: 0.5 mg Magnesium Hydroxide (Milk Of Magnesia 30 Ml Oral.Susp) 30 ml PO DAILY PRN PRN Reason: Constipation Mirtazapine (Mirtazapine 15 Mg Tablet) 15 mg PO BEDTIME [facility] Last Admin: 07/23/25 20:55 Dose: 15 mg Nicotine (Nicotine 21 Mg Patch.Td24) 21 mg TRANSDERMA DAILY PRN PRN Reason: nicotine craving Last Admin: 07/22/25 12:03 Dose: 21 mg Nicotine Polacrilex (Nicotine Polacrilex 2 Mg Gum) 2 mg BUCCAL Q2H PRN PRN Reason: Nicotine Cravings Omeprazole (Omeprazole 40 Mg Capsule.Dr) 40 mg PO BID@0630,1630 [facility] Last Admin: 07/24/25 17:10 Dose: 40 mg Ondansetron HCl (Ondansetron Odt 4 Mg Tab.Rapdis) 4 mg TRANSLINGU Q8H PRN PRN Reason: Nausea and Vomiting Last Admin: 07/19/25 16:09 Dose: 4 mg Pregabalin (Pregabalin 100 Mg Capsule) 100 mg PO BID [facility] Last Admin: 07/24/25 08:03 Dose: 100 mg Quetiapine Fumarate (Quetiapine Fumarate 200 Mg Tablet) 200 mg PO BEDTIME [facility] Last Admin: 07/23/25 20:55 Dose: 200 mg Quetiapine Fumarate (Quetiapine Fumarate 50 Mg Tablet) 50 mg PO BID@0900,1500 [facility] Last Admin: 07/24/25 17:09 Dose: 50 mg Sertraline HCl (Sertraline Hcl 50 Mg Tablet) 150 mg PO DAILY [facility] Last Admin: 07/24/25 08:03 Dose: 150 mg Thiamine HCl (Thiamine Hcl 100 Mg Tablet) 100 mg PO DAILY [facility] Last Admin: 07/24/25 08:03 Dose: 100 mg Trazodone HCl (Trazodone Hcl 50 Mg Tablet) 50 mg PO BEDTIME MRX1 PRN PRN Reason: Insomnia Allergies Allergies Allergy/AdvReac Type Severity Reaction Status Date / Time baclofen Allergy Hives Verified 07/15/25 22:05 escitalopram (From Lexapro) Allergy Vomiting Verified 07/15/25 22:05 fish derived (fish) Allergy Hives Verified 07/23/25 14:38 lithium Allergy Unresponsiv Verified 07/15/25 22:05 e metformin Allergy Unknown Verified 07/15/25 22:05 morphine Allergy Hives Verified 07/15/25 22:05 sulfamethoxazole (From Allergy Hives Verified 07/15/25 22:05 Bactrim) tramadol Allergy Hives Verified 07/15/25 22:05 trimethoprim (From Bactrim) Allergy Hives Verified 07/15/25 22:05 Assessment & Plan Assessment & Plan (1) Bipolar disorder: Status: Acute Code(s): F31.9 - Bipolar disorder, unspecified (2) PTSD (post-traumatic stress disorder): Status: Acute Code(s): F43.10 - Post-traumatic stress disorder, unspecified (3) Alcohol use disorder, severe, dependence: Status: Acute Code(s): F10.20 - Alcohol dependence, uncomplicated (4) Sacral decubitus ulcer: Qualifiers: Pressure injury stage: unspecified pressure injury stage Qualified Code(s): L89.159 - Pressure ulcer of sacral region, unspecified stage Status: Acute Code(s): L89.159 - Pressure ulcer of sacral region, unspecified stage (5) Guillain-Merlin: Status: Acute Code(s): G61.0 - Guillain-Merlin syndrome (6) Osteomyelitis: Qualifiers: Osteomyelitis location: unspecified site Osteomyelitis type: u nspecified type Qualified Code(s): M86.9 - Osteomyelitis, unspecified Status: Acute Code(s): M86.9 - Osteomyelitis, unspecified Plan HPI: Patient is a 40 y.o single Italian speaking male with history of Bipolar II, PTSD, and Medical hx of Guillian Merlin syndrome wheelchair-bound,with 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 Patient was tearful at bedside. Report I cannot take it anymore . I would rather be . I have more reasons to than to live . I have also been seeing bugs that are crawling everywhere . Hospital course: 07/19/25: Re-start all home meds Re-start on Lyrica at lower dose for nerve pain: 50mg BID Will address with patient regarding Guanfacine IR and ER as we do not carry IR form and patient takes it PRN. Monitor for BS via Diabetic protocol Monitor for alcohol W/D with PRN Ativan. 07/20: Pt received one time dose of IM haldol 5 mg per his request for severe anxiety related to potential that he will have to return to the streets upon d/c. Increased prn seroquel to 50 mg tid. He hopes to be able to rent a room but needs an ID card. 07/21/25: Met with patient after lunch. Patient reports very anxious, but denies suicidal thoughts. Reports sometimes he feels paranoid, and feeling bugs crawling on his skin. Nursing contact this provider a couple of times due to patient requests for Haldol for anxiety. Given Haldol 10 mg x 1, with moderate effect. Review changes in terms of medication with patient. Patient is grateful and appreciate the change made. Patient remain on Ativan taper. This is his 5th day without alcohol. Incongruent with mood. Appeared to have medication seeking behavior. He asked about phenobarbital. Assure patient that this is his 5th day, and he is on Ativan taper. It should be enough to cover for any withdrawal if he has any. Nursing also contact for elevated blood sugar which patient observed eating and drinking the ensure in the afternoon before dinner. Patient is receptive with the medication plan, a shower, slept for 8 hours. Medication compliant. Denies side effects. Remain on 5 minute checks due to wheelchair. Increase Lyrica to b.i.d. for neuropathy Schedule guanfacine 1mg daily At Haldol 10 mg b.i.d. p.r.n. for severe agitation/psychosis Increase Seroquel up to 200 at bedtime. DC or the PRNs Scheduled Seroquel 50 b.i.d. at 0900 and 1500 Increase Depakote from 250 b.i.d. to 1500 at bedtime. Continue with Ativan taper 07/22/25: Per hospitalist note in the afternoon/evening on 07/21: Notified by Psychiatry that pt's BG is elevated, 527 and requesting consult for pt to be seen. UA, CBC and BMP were already sent, In the interim, R insulin IV ordered 10 u and IVF bolus and hourly rate also ordered. 2034 Labs reveal CO2 20, AG 15 (closed), >1000 glucose in urine, trace ketones. No DKA. Pt seen and examined, is ALert and orientated X3, NAD, not diaphoretic. Pt has usual wound on sacrum/coccyx area that is stable compared to previous admissions. No new wounds on RLE. Currently plan is to add lantus 26 U HS, continue IVF and monitor BG hourly until less than 400, then Q2 hours overnight. Currently pt does not require transfer to medical surgical floor Patient continued to get monitor blood sugar and IV normal saline until this morning. Blood sugar currently at 200s. A lot of education regarding food and fluid choices for diabetic. Patient needs reminder that my phone of what he chose to drink or eat regarding blood sugar. Continued to report feeling paranoid that people are talking about him. He met with addiction team, expressed that he wants methadone helping for his pain and his substance use. Pending results Continue with Ativan taper. No safety concern in terms of suicidal thoughts and homicidal thoughts. Continue to monitor blood sugar. The pinching and feeling bugs on his skin could be from uncontrolled neuropathy as he did not have access to Lyrica for more than a month. Just recently restart. Pending wound consult. No medication change. Continue with current plan. 07/23: Pt did not ask t/w for any controlled meds today. Received last dose of scheduled lorazepam 1 mg this am for tx of ETOH w/d. Taper will continue with 0.5 mg bid x 2 days then d/c. Mood has improved. Denies SI. Will likely d/c on Wed to [facility] 07/24: Pt endorsed sx of ETOH w/d and increased anxiety today but appeared totally calm and is outside of the window for ETOH w/d. He was tapered from lorazepam 1 mg bid to 0.5 mg bid last night. T/W rx'd one additional 0.5 mg dose of lorazepam today but pt understands that he will not be d/c'd w/ a long-term rx for this medication. Plan is for d/c/ tomorrow Plan Patient on 5 minute checks for safety: Wheelchair. Admitted to [facility]. CV. Work with treatment team to do collateral for CSS/CCS if possible for aftercare. Refer to patient to maintenance specialist: declined. Contact the hospitalist regarding hospitalist consultation on admission:seen by Hospitalist. Consult in for wound/pressure ulcer: pending Reason for continued inpatient stay Substantial Risk for: med/psych decompensation Time Spent With Patient Time: Total time managing care of this patient today ____ minutes.
[2025-07-24] MEDS: Insulin Glargine,Hum.rec.anlog 100 UNIT/ML 10 ML VIAL 30 UNIT SUBCUT (20:59)
[2025-07-24 21:58] VITALS: BP 127/73; PULSE 120; RESP 20
[2025-07-25] VITALS: RESP 20
[2025-07-25 04:00] VITALS: RESP 18
[2025-07-25 08:00] VITALS: BP 127/81; PULSE 104; TEMP 36.6; O2SAT 94
[2025-07-25 08:08] LABS: Glucose, Whole Blood 154 mg/dL (60-115)
[2025-07-25] MEDS: guanFACINE HCl ER 1 MG TAB.ER.24H PO (08:19)
[2025-07-25 12:11] LABS: Glucose, Whole Blood 247 mg/dL (60-115)
--- NOTE | 2025-07-25 19:44 | P.DS_ITS ---
DS: Providers Provider Date of Service: 07/25/25 Date of admission: 07/18/25 17:18 Date of discharge: 07/25/25 Primary care physician: Unknown Physician Admitting clinician: Sally Walters Attending physician on admission: Rajinder Rueda Consults: 07/18/25 17:44 Consult to Wound Care Routine Consulting Provider: [facility] Reason for consultation: Pressure ulcer on sacrum and feet 07/18/25 17:46 Consult to Hospitalist Routine Comment: Consulting Provider: [facility] Reason For Exam: Admission physical 07/18/25 18:50 Addiction Medicine Provider Routine Consulting Provider: Addiction Covering Reason for consultation: Pt interested in alcohol cessation. 07/21/25 19:16 Consult to Hospitalist Stat Comment: Consulting Provider: [facility] Reason For Exam: ?DKA 07/21/25 23:25 Consult to Wound Care Routine Consulting Provider: [facility] Reason for consultation: assess chronic sacral wound Attending physician on discharge: Sandee Brown DS: Diagnosis Discharge Diagnosis (1) Bipolar disorder: Status: Acute (2) PTSD (post-traumatic stress disorder): Status: Acute (3) Alcohol use disorder, severe, dependence: Status: Acute (4) Sacral decubitus ulcer: Status: Acute (5) Guillain-Midland: Status: Acute (6) Osteomyelitis: Status: Acute DS: Medications Discharge Medications Home Medications: Previous Rx's ?Medication ?Instructions ?Recorded aluminum-magnesium hydroxide 200 30 ml PO Q6H PRN Hear tburn/Nausea 07/25/25 mg-200 mg/5 mL oral suspension #0 mL (MAG-AL) cyanocobalamin (vitamin B-12) 1,000 mcg PO DAILY 30 da ys #30 tabs 07/25/25 1,000 mcg tablet (Vitamin B-12) divalproex 500 mg tablet,extended See Rx Instructions .Route 07/25/25 release 24 hr .COMPLEX 30 days #90 tabs guanfacine 1 mg tablet,extended 1 mg PO DAILY 30 days #30 tabs 07/25/25 release 24 hr haloperidol 5 mg tablet See Rx Instructions .Route 1 09/25/24 .COMPLEX PRN agitation 30 days #30 tabs hydroxyzine HCl 50 mg tablet 50 mg PO Q6H PRN mild anx iety 30 07/25/25 days #120 tabs insulin glargine 100 unit/mL (3 30 unit (0.3 mL) subcu t BEDTIME 30 07/25/25 mL) subcutaneous pen (Lantus days #9 mL Solostar U-100 Insulin) mirtazapine 15 mg tablet 15 mg PO BEDTIME 30 days #30 tabs 07/25/25 nicotine 21 mg/24 hr daily 21 mg transdermal DAILY saleem otine 07/25/25 transdermal patch craving 28 days #28 ea omeprazole 40 mg capsule,delayed 40 mg PO BID@0630,163 0 30 days #60 07/25/25 release caps pen needle, diabetic 31 gauge x #30 ea 07/25/25 5/16 (Pen Needle) pregabalin 100 mg capsule (Lyrica) 100 mg PO BID 30 da ys #60 caps 07/25/25 quetiapine 200 mg tablet 200 mg PO BEDTIME 30 days #3 0 tabs 07/25/25 quetiapine 50 mg tablet 50 mg PO BID@0900,1500 30 da ys #60 07/25/25 tabs sertraline 50 mg tablet 150 mg (3 x 50 mg) PO DAILY 30 07/25/25 days #90 tabs thiamine mononitrate (vit B1) 100 100 mg PO DAILY 30 d ays #30 tabs 07/25/25 mg tablet Mental Status Exam Mental Status Exam Narrative: Appearance: Casually dressed. Grooming/hygiene wn. good eye contact Attitude:Cooperative Speech: Fluent and wnl in regard to volume, tone, prosody Motor activity: Calm and without any tics, tremors or dyskinesias. Mood: okay , better overall Affect: calm, generally bright Thought process: goal directed and without evidence of formal thought disorder Thought content: Denies SI/violent ideation. Perception: Denies AH/VH and does not appear to respond to internal stimuli Alert/oriented in all spheres Cognition grossly intact Insight: fair Judgment: fair Data Data Completed and Pending Completed studies during hospitalization [Text1]: 07/18/25 07/19/25 07/19/25 20:34 07:47 08:01 WBC RBC Hgb Hct MCV MCH MCHC RDW Plt Count MPV Immature Gran % (Auto) Neut % (Auto) Lymph % (Auto) [place] % (Auto) Eos % (Auto) Baso % (Auto) Lymph # (Auto) [place] # (Auto) Eos # (Auto) Baso # (Auto) Abs Immat Gran (auto) Absolute Neuts (auto) Absolute Nucleated RBC Nucleated RBC % (auto) VBG pH VBG pCO2 VBG pO2 VBG HCO3 VBG O2 Saturation VBG Base Excess Sodium 140 Potassium 3.9 Chloride 110 H Carbon Dioxide 23 Anion Gap 11 L BUN 15 Creatinine 0.61 Estim Creat Clear Calc 221.6 Estimated GFR > 60 POC Glucose 223 H 155 H Random Glucose 161 H Estimat Average Glucose 140 Hemoglobin A1c % 6.5 H Calcium 9.3 Magnesium 1.8 Total Bilirubin 0.2 Direct Bilirubin < 0.2 AST 26 ALT 39 Alkaline Phosphatase 106 Total Protein 6.1 L Albumin 3.8 Triglycerides 222 H Cholesterol 150 LDL Cholesterol, Calc 70 HDL Cholesterol 36 L Vitamin B12 187 L Folate 8.8 Beta-Hydroxybutyrate TSH 1.74 Free T4 0.86 Urine Color Urine Appearance Urine pH Ur Specific Ronald Urine Protein Urine Glucose (UA) Urine Ketones Urine Blood Urine Nitrite Ur Leukocyte Esterase Urine RBC Urine WBC Ur Squamous Epith Cells Urine Bacteria Hyaline Casts 07/19/25 07/19/25 07/19/25 11:45 16:46 20:56 WBC RBC Hgb Hct MCV MCH MCHC RDW Plt Count MPV Immature Gran % (Auto) Neut % (Auto) Lymph % (Auto) [place] % (Auto) Eos % (Auto) Baso % (Auto) Lymph # (Auto) [place] # (Auto) Eos # (Auto) Baso # (Auto) Abs Immat Gran (auto) Absolute Neuts (auto) Absolute Nucleated RBC Nucleated RBC % (auto) VBG pH VBG pCO2 VBG pO2 VBG HCO3 VBG O2 Saturation VBG Base Excess Sodium Potassium Chloride Carbon Dioxide Anion Gap BUN Creatinine Estim Creat Clear Calc Estimated GFR POC Glucose 231 H 275 H 224 H Random Glucose Estimat Average Glucose Hemoglobin A1c % Calcium Magnesium Total Bilirubin Direct Bilirubin AST ALT Alkaline Phosphatase Total Protein Albumin Triglycerides Cholesterol LDL Cholesterol, Calc HDL Cholesterol Vitamin B12 Folate Beta-Hydroxybutyrate TSH Free T4 Urine Color Urine Appearance Urine pH Ur Specific Ronald Urine Protein Urine Glucose (UA) Urine Ketones Urine Blood Urine Nitrite Ur Leukocyte Esterase Urine RBC Urine WBC Ur Squamous Epith Cells Urine Bacteria Hyaline Casts 07/20/25 07/20/25 07/20/25 07:29 11:40 16:42 WBC RBC Hgb Hct MCV MCH MCHC RDW Plt Count MPV Immature Gran % (Auto) Neut % (Auto) Lymph % (Auto) [place] % (Auto) Eos % (Auto) Baso % (Auto) Lymph # (Auto) [place] # (Auto) Eos # (Auto) Baso # (Auto) Abs Immat Gran (auto) Absolute Neuts (auto) Absolute Nucleated RBC Nucleated RBC % (auto) VBG pH VBG pCO2 VBG pO2 VBG HCO3 VBG O2 Saturation VBG Base Excess Sodium Potassium Chloride Carbon Dioxide Anion Gap BUN Creatinine Estim Creat Clear Calc Estimated GFR POC Glucose 326 H 282 H 262 H Random Glucose Estimat Average Glucose Hemoglobin A1c % Calcium Magnesium Total Bilirubin Direct Bilirubin AST ALT Alkaline Phosphatase Total Protein Albumin Triglycerides Cholesterol LDL Cholesterol, Calc HDL Cholesterol Vitamin B12 Folate Beta-Hydroxybutyrate TSH Free T4 Urine Color Urine Appearance Urine pH Ur Specific Ronald Urine Protein Urine Glucose (UA) Urine Ketones Urine Blood Urine Nitrite Ur Leukocyte Esterase Urine RBC Urine WBC Ur Squamous Epith Cells Urine Bacteria Hyaline Casts 07/20/25 07/21/25 07/21/25 20:30 07:10 11:37 WBC RBC Hgb Hct MCV MCH MCHC RDW Plt Count MPV Immature Gran % (Auto) Neut % (Auto) Lymph % (Auto) [place] % (Auto) Eos % (Auto) Baso % (Auto) Lymph # (Auto) [place] # (Auto) Eos # (Auto) Baso # (Auto) Abs Immat Gran (auto) Absolute Neuts (auto) Absolute Nucleated RBC Nucleated RBC % (auto) VBG pH VBG pCO2 VBG pO2 VBG HCO3 VBG O2 Saturation VBG Base Excess Sodium Potassium Chloride Carbon Dioxide Anion Gap BUN Creatinine Estim Creat Clear Calc Estimated GFR POC Glucose 211 H 236 H 356 H* Random Glucose Estimat Average Glucose Hemoglobin A1c % Calcium Magnesium Total Bilirubin Direct Bilirubin AST ALT Alkaline Phosphatase Total Protein Albumin Triglycerides Cholesterol LDL Cholesterol, Calc HDL Cholesterol Vitamin B12 Folate Beta-Hydroxybutyrate TSH Free T4 Urine Color Urine Appearance Urine pH Ur Specific Ronald Urine Protein Urine Glucose (UA) Urine Ketones Urine Blood Urine Nitrite Ur Leukocyte Esterase Urine RBC Urine WBC Ur Squamous Epith Cells Urine Bacteria Hyaline Casts 07/21/25 07/21/25 07/21/25 16:37 18:42 19:26 WBC 3.9 L RBC 5.01 Hgb 12.9 L Hct 40.3 L MCV 80.4 MCH 25.7 L MCHC 32.0 RDW 15.9 Plt Count 144 L D MPV 11.3 Immature Gran % (Auto) 0.5 H Neut % (Auto) 60.0 Lymph % (Auto) 28.2 [place] % (Auto) 9.7 Eos % (Auto) 1.3 Baso % (Auto) 0.3 Lymph # (Auto) 1.1 L [place] # (Auto) 0.4 Eos # (Auto) 0.1 Baso # (Auto) 0.0 Abs Immat Gran (auto) 0.02 Absolute Neuts (auto) 2.4 Absolute Nucleated RBC 0.000 Nucleated RBC % (auto) 0.0 VBG pH VBG pCO2 VBG pO2 VBG HCO3 VBG O2 Saturation VBG Base Excess Sodium 136 Potassium 4.4 Chloride 105 Carbon Dioxide 20 L Anion Gap 15 BUN 14 Creatinine 0.96 Estim Creat Clear Calc 140.8 Estimated GFR > 60 POC Glucose 466 H* 523 H* Random Glucose 521 H* Estimat Average Glucose Hemoglobin A1c % Calcium 9.3 Magnesium Total Bilirubin 0.3 Direct Bilirubin AST 32 ALT 37 Alkaline Phosphatase 152 H Total Protein 6.9 Albumin 4.3 Triglycerides Cholesterol LDL Cholesterol, Calc HDL Cholesterol Vitamin B12 Folate Beta-Hydroxybutyrate 0.11 TSH Free T4 Urine Color Urine Appearance Urine pH Ur Specific Ronald Urine Protein Urine Glucose (UA) Urine Ketones Urine Blood Urine Nitrite Ur Leukocyte Esterase Urine RBC Urine WBC Ur Squamous Epith Cells Urine Bacteria Hyaline Casts 07/21/25 07/21/25 07/21/25 19:35 19:59 20:10 WBC RBC Hgb Hct MCV MCH MCHC RDW Plt Count MPV Immature Gran % (Auto) Neut % (Auto) Lymph % (Auto) [place] % (Auto) Eos % (Auto) Baso % (Auto) Lymph # (Auto) [place] # (Auto) Eos # (Auto) Baso # (Auto) Abs Immat Gran (auto) Absolute Neuts (auto) Absolute Nucleated RBC Nucleated RBC % (auto) VBG pH 7.34 VBG pCO2 46 VBG pO2 39 VBG HCO3 25 VBG O2 Saturation 56.0 VBG Base Excess -0.8 Sodium Potassium Chloride Carbon Dioxide Anion Gap BUN Creatinine Estim Creat Clear Calc Estimated GFR POC Glucose 527 H* Random Glucose Estimat Average Glucose Hemoglobin A1c % Calcium Magnesium Total Bilirubin Direct Bilirubin AST ALT Alkaline Phosphatase Total Protein Albumin Triglycerides Cholesterol LDL Cholesterol, Calc HDL Cholesterol Vitamin B12 Folate Beta-Hydroxybutyrate TSH Free T4 Urine Color Yellow Urine Appearance Clear Urine pH 6.0 Ur Specific Ronald 1.025 Urine Protein Negative Urine Glucose (UA) >=1000 H Urine Ketones Trace Urine Blood Negative Urine Nitrite Negative Ur Leukocyte Esterase Negative Urine RBC 0-2 Urine WBC 0-5 Ur Squamous Epith Cells 0-2 Urine Bacteria None Seen Hyaline Casts 0-2 07/21/25 07/21/25 07/21/25 21:07 22:03 23:04 WBC RBC Hgb Hct MCV MCH MCHC RDW Plt Count MPV Immature Gran % (Auto) Neut % (Auto) Lymph % (Auto) [place] % (Auto) Eos % (Auto) Baso % (Auto) Lymph # (Auto) [place] # (Auto) Eos # (Auto) Baso # (Auto) Abs Immat Gran (auto) Absolute Neuts (auto) Absolute Nucleated RBC Nucleated RBC % (auto) VBG pH VBG pCO2 VBG pO2 VBG HCO3 VBG O2 Saturation VBG Base Excess Sodium Potassium Chloride Carbon Dioxide Anion Gap BUN Creatinine Estim Creat Clear Calc Estimated GFR POC Glucose 402 H* 316 H 300 H Random Glucose Estimat Average Glucose Hemoglobin A1c % Calcium Magnesium Total Bilirubin Direct Bilirubin AST ALT Alkaline Phosphatase Total Protein Albumin Triglycerides Cholesterol LDL Cholesterol, Calc HDL Cholesterol Vitamin B12 Folate Beta-Hydroxybutyrate TSH Free T4 Urine Color Urine Appearance Urine pH Ur Specific Ronald Urine Protein Urine Glucose (UA) Urine Ketones Urine Blood Urine Nitrite Ur Leukocyte Esterase Urine RBC Urine WBC Ur Squamous Epith Cells Urine Bacteria Hyaline Casts 07/22/25 07/22/25 07/22/25 00:13 01:09 02:03 WBC RBC Hgb Hct MCV MCH MCHC RDW Plt Count MPV Immature Gran % (Auto) Neut % (Auto) Lymph % (Auto) [place] % (Auto) Eos % (Auto) Baso % (Auto) Lymph # (Auto) [place] # (Auto) Eos # (Auto) Baso # (Auto) Abs Immat Gran (auto) Absolute Neuts (auto) Absolute Nucleated RBC Nucleated RBC % (auto) VBG pH VBG pCO2 VBG pO2 VBG HCO3 VBG O2 Saturation VBG Base Excess Sodium Potassium Chloride Carbon Dioxide Anion Gap BUN Creatinine Estim Creat Clear Calc Estimated GFR POC Glucose 235 H 225 H 213 H Random Glucose Estimat Average Glucose Hemoglobin A1c % Calcium Magnesium Total Bilirubin Direct Bilirubin AST ALT Alkaline Phosphatase Total Protein Albumin Triglycerides Cholesterol LDL Cholesterol, Calc HDL Cholesterol Vitamin B12 Folate Beta-Hydroxybutyrate TSH Free T4 Urine Color Urine Appearance Urine pH Ur Specific Ronald Urine Protein Urine Glucose (UA) Urine Ketones Urine Blood Urine Nitrite Ur Leukocyte Esterase Urine RBC Urine WBC Ur Squamous Epith Cells Urine Bacteria Hyaline Casts 07/22/25 07/22/25 07/22/25 04:06 06:06 07:47 WBC RBC Hgb Hct MCV MCH MCHC RDW Plt Count MPV Immature Gran % (Auto) Neut % (Auto) Lymph % (Auto) [place] % (Auto) Eos % (Auto) Baso % (Auto) Lymph # (Auto) [place] # (Auto) Eos # (Auto) Baso # (Auto) Abs Immat Gran (auto) Absolute Neuts (auto) Absolute Nucleated RBC Nucleated RBC % (auto) VBG pH VBG pCO2 VBG pO2 VBG HCO3 VBG O2 Saturation VBG Base Excess Sodium Potassium Chloride Carbon Dioxide Anion Gap BUN Creatinine Estim Creat Clear Calc Estimated GFR POC Glucose 212 H 233 H 214 H Random Glucose Estimat Average Glucose Hemoglobin A1c % Calcium Magnesium Total Bilirubin Direct Bilirubin AST ALT Alkaline Phosphatase Total Protein Albumin Triglycerides Cholesterol LDL Cholesterol, Calc HDL Cholesterol Vitamin B12 Folate Beta-Hydroxybutyrate TSH Free T4 Urine Color Urine Appearance Urine pH Ur Specific Ronald Urine Protein Urine Glucose (UA) Urine Ketones Urine Blood Urine Nitrite Ur Leukocyte Esterase Urine RBC Urine WBC Ur Squamous Epith Cells Urine Bacteria Hyaline Casts 07/22/25 07/22/25 07/22/25 10:30 11:46 16:47 WBC RBC Hgb Hct MCV MCH MCHC RDW Plt Count MPV Immature Gran % (Auto) Neut % (Auto) Lymph % (Auto) [place] % (Auto) Eos % (Auto) Baso % (Auto) Lymph # (Auto) [place] # (Auto) Eos # (Auto) Baso # (Auto) Abs Immat Gran (auto) Absolute Neuts (auto) Absolute Nucleated RBC Nucleated RBC % (auto) VBG pH VBG pCO2 VBG pO2 VBG HCO3 VBG O2 Saturation VBG Base Excess Sodium Potassium Chloride Carbon Dioxide Anion Gap BUN Creatinine Estim Creat Clear Calc Estimated GFR POC Glucose 216 H 229 H 208 H Random Glucose Estimat Average Glucose Hemoglobin A1c % Calcium Magnesium Total Bilirubin Direct Bilirubin AST ALT Alkaline Phosphatase Total Protein Albumin Triglycerides Cholesterol LDL Cholesterol, Calc HDL Cholesterol Vitamin B12 Folate Beta-Hydroxybutyrate TSH Free T4 Urine Color Urine Appearance Urine pH Ur Specific Ronald Urine Protein Urine Glucose (UA) Urine Ketones Urine Blood Urine Nitrite Ur Leukocyte Esterase Urine RBC Urine WBC Ur Squamous Epith Cells Urine Bacteria Hyaline Casts 07/22/25 07/23/25 07/23/25 20:03 07:09 11:50 WBC RBC Hgb Hct MCV MCH MCHC RDW Plt Count MPV Immature Gran % (Auto) Neut % (Auto) Lymph % (Auto) [place] % (Auto) Eos % (Auto) Baso % (Auto) Lymph # (Auto) [place] # (Auto) Eos # (Auto) Baso # (Auto) Abs Immat Gran (auto) Absolute Neuts (auto) Absolute Nucleated RBC Nucleated RBC % (auto) VBG pH VBG pCO2 VBG pO2 VBG HCO3 VBG O2 Saturation VBG Base Excess Sodium Potassium Chloride Carbon Dioxide Anion Gap BUN Creatinine Estim Creat Clear Calc Estimated GFR POC Glucose 299 H 253 H 233 H Random Glucose Estimat Average Glucose Hemoglobin A1c % Calcium Magnesium Total Bilirubin Direct Bilirubin AST ALT Alkaline Phosphatase Total Protein Albumin Triglycerides Cholesterol LDL Cholesterol, Calc HDL Cholesterol Vitamin B12 Folate Beta-Hydroxybutyrate TSH Free T4 Urine Color Urine Appearance Urine pH Ur Specific Ronald Urine Protein Urine Glucose (UA) Urine Ketones Urine Blood Urine Nitrite Ur Leukocyte Esterase Urine RBC Urine WBC Ur Squamous Epith Cells Urine Bacteria Hyaline Casts 07/23/25 07/23/25 07/24/25 16:50 20:31 07:48 WBC RBC Hgb Hct MCV MCH MCHC RDW Plt Count MPV Immature Gran % (Auto) Neut % (Auto) Lymph % (Auto) [place] % (Auto) Eos % (Auto) Baso % (Auto) Lymph # (Auto) [place] # (Auto) Eos # (Auto) Baso # (Auto) Abs Immat Gran (auto) Absolute Neuts (auto) Absolute Nucleated RBC Nucleated RBC % (auto) VBG pH VBG pCO2 VBG pO2 VBG HCO3 VBG O2 Saturation VBG Base Excess Sodium Potassium Chloride Carbon Dioxide Anion Gap BUN Creatinine Estim Creat Clear Calc Estimated GFR POC Glucose 357 H* 436 H* 169 H Random Glucose Estimat Average Glucose Hemoglobin A1c % Calcium Magnesium Total Bilirubin Direct Bilirubin AST ALT Alkaline Phosphatase Total Protein Albumin Triglycerides Cholesterol LDL Cholesterol, Calc HDL Cholesterol Vitamin B12 Folate Beta-Hydroxybutyrate TSH Free T4 Urine Color Urine Appearance Urine pH Ur Specific Ronald Urine Protein Urine Glucose (UA) Urine Ketones Urine Blood Urine Nitrite Ur Leukocyte Esterase Urine RBC Urine WBC Ur Squamous Epith Cells Urine Bacteria Hyaline Casts 07/24/25 07/24/25 07/24/25 12:12 16:46 20:01 WBC RBC Hgb Hct MCV MCH MCHC RDW Plt Count MPV Immature Gran % (Auto) Neut % (Auto) Lymph % (Auto) [place] % (Auto) Eos % (Auto) Baso % (Auto) Lymph # (Auto) [place] # (Auto) Eos # (Auto) Baso # (Auto) Abs Immat Gran (auto) Absolute Neuts (auto) Absolute Nucleated RBC Nucleated RBC % (auto) VBG pH VBG pCO2 VBG pO2 VBG HCO3 VBG O2 Saturation VBG Base Excess Sodium Potassium Chloride Carbon Dioxide Anion Gap BUN Creatinine Estim Creat Clear Calc Estimated GFR POC Glucose 299 H 174 H 313 H Random Glucose Estimat Average Glucose Hemoglobin A1c % Calcium Magnesium Total Bilirubin Direct Bilirubin AST ALT Alkaline Phosphatase Total Protein Albumin Triglycerides Cholesterol LDL Cholesterol, Calc HDL Cholesterol Vitamin B12 Folate Beta-Hydroxybutyrate TSH Free T4 Urine Color Urine Appearance Urine pH Ur Specific Ronald Urine Protein Urine Glucose (UA) Urine Ketones Urine Blood Urine Nitrite Ur Leukocyte Esterase Urine RBC Urine WBC Ur Squamous Epith Cells Urine Bacteria Hyaline Casts 07/25/25 07/25/25 07:56 12:04 WBC RBC Hgb Hct MCV MCH MCHC RDW Plt Count MPV Immature Gran % (Auto) Neut % (Auto) Lymph % (Auto) [place] % (Auto) Eos % (Auto) Baso % (Auto) Lymph # (Auto) [place] # (Auto) Eos # (Auto) Baso # (Auto) Abs Immat Gran (auto) Absolute Neuts (auto) Absolute Nucleated RBC Nucleated RBC % (auto) VBG pH VBG pCO2 VBG pO2 VBG HCO3 VBG O2 Saturation VBG Base Excess Sodium Potassium Chloride Carbon Dioxide Anion Gap BUN Creatinine Estim Creat Clear Calc Estimated GFR POC Glucose 154 H 247 H Random Glucose Estimat Average Glucose Hemoglobin A1c % Calcium Magnesium Total Bilirubin Direct Bilirubin AST ALT Alkaline Phosphatase Total Protein Albumin Triglycerides Cholesterol LDL Cholesterol, Calc HDL Cholesterol Vitamin B12 Folate Beta-Hydroxybutyrate TSH Free T4 Urine Color Urine Appearance Urine pH Ur Specific Ronald Urine Protein Urine Glucose (UA) Urine Ketones Urine Blood Urine Nitrite Ur Leukocyte Esterase Urine RBC Urine WBC Ur Squamous Epith Cells Urine Bacteria Hyaline Casts DS: Summary Hospital Course Hospital Course: Per psych admission note from covering provider: Patient is a 40 y.o single French speaking male with history of Bipolar II, PTSD, and Medical hx of Guillian Mid[place] syndrome wheelchair-bound,with history of 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 Patient was tearful at bedside. Report I cannot take it anymore . I would rather be . I have more reasons to than to live . I have also been seeing bugs that are crawling everywhere . On M3: meet with patient in assigned room on 07/19/25 at 1145. Report reason for this admission is homelessness. Report mentally and physically not good . Report he has prepare to end my life . Report that he has been homeless for 2.5 months. This provider is familier with the case as patient was admited to medical floor for complicated alcohol detox a couple months ago where he refused to get his mental health addressed and believed that he could go home feeling safe and work on substance use himself. However, he admits today that he needs help. Report last alcohol intake was 3-4 days ago prior to be admitted here at [facility]. Self report less W/D symptoms compared to yesterday when this provider met with patient for CV. Report his alcohol habit got heavier this year but not as muc as I used to . No symptoms observed in both time when this provider met with him. He is on CIWA protocol. BLAIR use once a month or every other week. Last use on 05/25/25 but report it may lace with THC when he used THC. Smoke 1.5 PPD. Denies SI/SIB/HI/AVH. Report no SIB hx but hx of SI and suicide attempt x1 by poisoning in 2016. Inconsistnet w/ taking meds. Perserverative on Lyrica. Hospital course: Admitted to [facility] for safety and stabilization on a CV 5 min safety checks due to wheelchair 07/19/25: Re-start all home meds Re-start on Lyrica at lower dose for nerve pain: 50mg BID Will address with patient regarding Guanfacine IR and ER as we do not carry IR form and patient takes it PRN. Monitor for BS via Diabetic protocol Monitor for alcohol W/D with PRN Ativan. 07/20: Pt received one time dose of IM haldol 5 mg per his request for severe anxiety related to potential that he will have to return to the streets upon d/c. Increased prn seroquel to 50 mg tid. He hopes to be able to rent a room but needs an ID card. 07/21/25: Patient reports very anxious, but denies suicidal thoughts. Reports sometimes he feels paranoid, and feeling bugs crawling on his skin. Nursing contacted covering provider a couple of times due to patient requests for Haldol for anxiety. Given Haldol 10 mg x 1, with moderate effect. Covering provider reviewed changes in terms of medication with patient. Patient is grateful and appreciate the change made. Patient remain on Ativan taper. This is his 5th day without alcohol. Incongruent with mood. Appeared to have medication seeking behavior. He asked about phenobarbital. Assure patient that this is his 5th day, and he is on Ativan taper. It should be enough to cover for any withdrawal if he has any. Nursing also contact for elevated blood sugar which patient observed eating and drinking the ensure in the afternoon before dinner. Patient is receptive with the medication plan, a shower, slept for 8 hours. Medication compliant. Denies side effects. Remain on 5 minute checks due to wheelchair. Increase Lyrica to b.i.d. for neuropathy Schedule guanfacine 1mg daily At Haldol 10 mg b.i.d. p.r.n. for severe agitation/psychosis Increase Seroquel up to 200 at bedtime. DC or the PRNs Scheduled Seroquel 50 b.i.d. at 0900 and 1500 Increase Depakote from 250 b.i.d. to 1500 at bedtime. Continue with Ativan taper 07/22/25: Per hospitalist note in the afternoon/evening on 07/21: Notified by Psychiatry that pt's BG is elevated, 527 and requesting consult for pt to be seen. UA, CBC and BMP were already sent, In the interim, R insulin IV ordered 10 u and IVF bolus and hourly rate also ordered. 2034 Labs reveal CO2 20, AG 15 (closed), >1000 glucose in urine, trace ketones. No DKA. Pt seen and examined, is ALert and orientated X3, NAD, not diaphoretic. Pt has usual wound on sacrum/coccyx area that is stable compared to previous admissions. No new wounds on RLE. Currently plan is to add lantus 26 U HS, continue IVF and monitor BG hourly until less than 400, then Q2 hours overnight. Currently pt does not require transfer to medical surgical floor Patient continued to get monitor blood sugar and IV normal saline until this morning. Blood sugar currently at 200s. A lot of education regarding food and fluid choices for diabetic. Patient needs reminder that my phone of what he chose to drink or eat regarding blood sugar. Continued to report feeling paranoid that people are talking about him. He met with addiction team, expressed that he wants methadone helping for his pain and his substance use. Continue with Ativan taper. No safety concern in terms of suicidal thoughts and homicidal thoughts. Continue to monitor blood sugar. The pinching and feeling bugs on his skin could be from uncontrolled neuropathy as he did not have access to Lyrica for more than a month. Just recently restart. Pending wound consult. No medication change. Continue with current plan. 07/23: Pt did not ask t/w for any controlled meds today. Received last dose of scheduled lorazepam 1 mg this am for tx of ETOH w/d. Taper will continue with 0.5 mg bid x 2 days then d/c. Mood has improved. Denies SI. Will likely d/c on Wed to [facility] 07/24: Pt endorsed sx of ETOH w/d and increased anxiety today but appeared totally calm and is outside of the window for ETOH w/d. He was tapered from lorazepam 1 mg bid to 0.5 mg bid last night. T/W rx'd one additional 0.5 mg dose of lorazepam today but pt understands that he will not be d/c'd w/ a long-term rx for this medication. Plan is for d/c/ tomorrow 07/25: Pt reports feeling safe w/ plan to be d/c'd today. Status at Discharge Functional status at discharge: wheelchair bound Overall status at discharge: patient is progressing back to baseline Time Spent with Patient Time attestation: Total time managing care of this patient today ____ minutes. Time spent: Less than 30 minutes Discharge Plan Discharge Anticipated Discharge Date/Time: 07/25/25 09:29 Patient Disposition: Long Term Discharge Diagnosis: Bipolar disorer, MRE depressed PTSD Alcohol use disorder Referrals: [facility] [Other] - 1 Week Referral Note: *Doors open each evening at 5 pm. Guests seeking overnight usp may start to line up between 3PM and 5PM at the [facility] Man Entrance. When staff arrive at 4PM they will distribute numbers to those already in line and as additional guests arrive Barbara Ross (Therapy) [Other] - 07/26/25 10:30 am Referral Note: TELEHEALTH APPOINTMENT Misti Ramirez (Psychiatry) [Other] - 1 Week Referral Note: [facility] has been notified of your scheduled discharge. They will reach out to you to provide the follow up appointment information. If you do not hear from them in the next couple of days, reach out to them at the phone number listed above. [facility] [Provider Group] - 1 Week Referral Note: 07-25-25 [facility] was added to patients chart. Please call [phone] to schedule a follow up appt within 7-10 days of discharge. No release or PCP on file. Discharge Medications: New nicotine 21 mg/24 hr Patch 24 Hour 21 mg transdermal DAILY 28 Days Qty: 28 0RF guanfacine 1 mg Tablet Extended Release 24 Hr 1 mg PO DAILY 30 Days Qty: 30 0RF Rx Instructions: Take 1 tab po qam divalproex 500 mg Tablet Extended Release 24 Hr See Rx Instructions .ROUTE .COMPLEX 30 Days Qty: 90 0RF Rx Instructions: Take 1 tab po qam and 2 tabs qhs haloperidol 5 mg Tablet See Rx Instructions .ROUTE .COMPLEX PRN (Reason: agitation) 30 Days Qty: 30 0RF Rx Instructions: Take 1-2 tabs po qd prn for agitation and/or severe anxiety hydroxyzine HCl 50 mg Tablet 50 mg PO Q6H PRN (Reason: mild anxiety) 30 Days Qty: 120 0RF mirtazapine 15 mg Tablet 15 mg PO BEDTIME 30 Days Qty: 30 0RF pregabalin [Lyrica] 100 mg Capsule 100 mg PO BID 30 Days Qty: 60 0RF quetiapine 200 mg Tablet 200 mg PO BEDTIME 30 Days Qty: 30 0RF quetiapine 50 mg Tablet 50 mg PO BID@0900,1500 30 Days Qty: 60 0RF sertraline 50 mg Tablet 150 mg PO DAILY 30 Days Qty: 90 0RF omeprazole 40 mg Capsule,Delayed Release(Dr/Ec) 40 mg PO BID@0630,1630 30 Days Qty: 60 0RF MAG-AL 200-200 mg/5 mL Suspension 30 ml PO Q6H PRN (Reason: Heartburn/Nausea) Qty: 0 0RF cyanocobalamin (vitamin B-12) [Vitamin B-12] 1,000 mcg Tablet 1,000 mcg PO DAILY 30 Days Qty: 30 0RF thiamine mononitrate (vit B1) 100 mg Tablet 100 mg PO DAILY 30 Days Qty: 30 0RF insulin glargine [Lantus Solostar U-100 Insulin] 100 unit/mL (3 mL) insulin pen 30 unit subcut BEDTIME 30 Days Qty: 9 0RF (DME) pen needle, diabetic [Pen Needle] 31 gauge x 5/16 needle See Rx Instructions .Route Qty: 30 0RF Rx Instructions: As directed Discontinued quetiapine 300 mg tablet 300 mg PO BEDTIME sertraline 100 mg tablet 150 mg PO DAILY hydroxyzine HCl 50 mg tablet 50 mg PO TID omeprazole 40 mg capsule,delayed release(DR/EC) 40 mg PO BID@0630,1630 pregabalin 225 mg capsule 225 mg PO BID loperamide [Anti-Diarrheal (loperamide)] 2 mg capsule 2 mg PO Q6H PRN (Reason: diarrhea) Qty: 30 0RF ondansetron 4 mg tablet,disintegrating 4 mg PO Q8H PRN (Reason: nausea and vomiting) Qty: 20 0RF guanfacine 1 mg tablet 1 mg PO BID PRN (Reason: anxiety) mirtazapine 15 mg tablet 7.5 - 15 mg PO BEDTIME divalproex 250 mg tablet extended release 24 hr 250 mg PO BID Discharge Orders: Discharge Order (Routine); Ordered 07/25/25 Ordered By: Sandee Brown Diet: Diabetic diet Activity on Discharge: Utilizes wheelchair Stand Alone Forms: Patient Portal Discharge page, Community Support Print Language: French Care Plan Goals: Maintain safe behaviors Practice coping skills Take medications as prescribed Continue to pursue sobriety Maintain regular follow-ups with your outpatient providers Health Concerns: Sacral decubitus ulcers Osteomyelitis h/o R BKA Guillain-[place] Peripheral neuropathy Plan of Treatment: Maintain safe behaviors Practice coping skills Take medications as prescribed Continue to pursue sobriety Maintain regular follow-ups with your outpatient providers Assessment: Risk assessment at the time of discharge: Patient was interviewed on the day of discharge and found to be fully oriented, without any SI or violent ideation. Pt has improved insight and judgment and plans to continue treatment Pt is not at imminent risk of harm to self or others and has a safety plan that includes presenting to the closest ER or calling 911 if feeling unsafe. Pt has been observed closely by unit staff and has not engaged in any behaviors that suggest dangerous to self or others and has demonstrated appropriate bheaviors and impulse control. Discharge Date/Time: 07/25/25 12:29
== END 2025-07-25 12:29 | disposition home or self-care (01) | DRG 885 ==
PROVIDERS: Nurse Practitioner Family; Nurse Practitioner Psychiatric/Mental Health; Social Worker; Admitting Provider Psychiatry & Neurology Psychiatry; Visit Provider Psychiatry & Neurology Psychiatry
DX: F31.9 Bipolar disorder, unspecified (principal); L89.154 Pressure ulcer of sacral region, stage 4; G61.0 Guillain-Barre syndrome; R45.851 Suicidal ideations; M86.9 Osteomyelitis, unspecified; Z59.02 Unsheltered homelessness; F17.210 Nicotine dependence, cigarettes, uncomplicated; F10.20 Alcohol dependence, uncomplicated; Z89.511 Acquired absence of right leg below knee; Z71.6 Tobacco abuse counseling; F43.10 Post-traumatic stress disorder, unspecified; E11.69 Type 2 diabetes mellitus with other specified complication; E53.8 Deficiency of other specified B group vitamins; R00.0 Tachycardia, unspecified; E11.42 Type 2 diabetes mellitus with diabetic polyneuropathy; Z99.3 Dependence on wheelchair; Z79.4 Long term (current) use of insulin; Z79.899 Other long term (current) drug therapy
CPT/HCPCS: 36415; 71260; 74177; 80053; 80061; 81001; 81003; 82010; 82248; 82607; 82746; 82803; 82947; 83036; 83735; 84439; 84443; 85025; 85610; 93005; J1630; Q9967

== ENCOUNTER → 2025-07-18 17:18 | Outpatient (BNV) | payer MEDICARE, MEDICAID, SELFPAY | PROVIDERS: Admitting Provider Psychiatry & Neurology Psychiatry; Visit Provider Psychiatry & Neurology Psychiatry | DX: F31.4 Bipolar disorder, current episode depressed, severe, without psychotic features (principal); F10.20 Alcohol dependence, uncomplicated; F43.11 Post-traumatic stress disorder, acute; L89.159 Pressure ulcer of sacral region, unspecified stage; G61.0 Guillain-Barre syndrome; M86.9 Osteomyelitis, unspecified | CPT/HCPCS: 99232 ==

== ENCOUNTER → 2025-07-18 17:18 | Outpatient (BNV) | payer MEDICARE, MEDICAID, SELFPAY | PROVIDERS: Admitting Provider Psychiatry & Neurology Psychiatry; Visit Provider Physician Assistant Medical | DX: F10.20 Alcohol dependence, uncomplicated (principal); L89.159 Pressure ulcer of sacral region, unspecified stage; G62.9 Polyneuropathy, unspecified | CPT/HCPCS: 99222 ==

== ENCOUNTER 2025-08-02 07:20 | Emergency (ER) | payer MEDICARE, MEDICAID, SELFPAY ==
--- NOTE | 2025-08-02 07:22 | ECG_ITS ---
Test Reason : ETOH WITHDRAWAL Blood Pressure : */* mmHG Vent. Rate : 87 BPM Atrial Rate : 87 BPM P-R Int : 148 ms QRS Dur : 82 ms QT Int : 370 ms P-R-T Axes : 11 -14 23 degrees QTcB Int : 445 ms Normal sinus rhythm Low voltage QRS Borderline ECG When compared with ECG of 20-Jul-2025 16:03, No significant change was found Referred By: Kasey Escobar Electronically Signed By: VITO MARTINEZ MD
--- NOTE | 2025-08-02 07:22 | ED.GENADULT ---
HPI - General Adult General Chief complaint: General Medical Stated complaint: ETOH W/DRAWAL,LAST DRINK T-1/HAND RIG WELDER W/H2O Time Seen by Provider: 08/02/25 07:21 Source: patient, EMS, RN notes reviewed and old records reviewed Mode of arrival: EMS History of Present Illness ED Provider: Shawn HPI narrative: Patient is a 40-year-old male with history of T2DM, alcohol use disorder, PTSD, Bipolar disorder, right bKA, Guillain-[place] presenting to the emergency department requesting assistance with detox from alcohol. States that he has been drinking 1-2 pt of vodka daily, last drink was yesterday morning reportedly. Also reports using cocaine yesterday morning. Reports history of withdrawal symptoms in the past but denies history of withdrawal seizures. Complains of chronic leg pain but denies any other current physical complaints. Denies suicidal or homicidal ideation. Denies auditory hallucinations. Does report some visual ?spots? as well as a crawling sensation under his skin. MD complaint: Alcohol withdrawal Related Data Previous Rx's ?Medication ?Instructions ?Recorded aluminum-magnesium hydroxide 200 30 ml PO Q6H PRN Heartburn/Nausea 07/25/25 mg-200 mg/5 mL oral suspension #0 mL (MAG-AL) cyanocobalamin (vitamin B-12) 1,000 mcg PO DAILY 30 days #30 tabs 07/25/25 1,000 mcg tablet (Vitamin B-12) divalproex 500 mg tablet,extended See Rx Instructions .Route 07/25/25 release 24 hr .COMPLEX 30 days #90 tabs guanfacine 1 mg tablet,extended 1 mg PO DAILY 30 days #30 tabs 07/25/25 release 24 hr haloperidol 5 mg tablet See Rx Instructions .Route 07/25/25 .COMPLEX PRN agitation 30 days #30 tabs hydroxyzine HCl 50 mg tablet 50 mg PO Q6H PRN mild anxiety 30 07/25/25 days #120 tabs insulin glargine 100 unit/mL (3 30 unit (0.3 mL) subcut BEDTIME 30 07/25/25 mL) subcutaneous pen (Lantus days #9 mL Solostar U-100 Insulin) mirtazapine 15 mg tablet 15 mg PO BEDTIME 30 days #30 tabs 07/25/25 nicotine 21 mg/24 hr daily 21 mg transdermal DAILY nicotine 07/25/25 transdermal patch craving 28 days #28 ea omeprazole 40 mg capsule,delayed 40 mg PO BID@0630,1630 30 days #60 07/25/25 release caps pen needle, diabetic 31 gauge x #30 ea 07/25/25 5/16 (Pen Needle) pregabalin 100 mg capsule (Lyrica) 100 mg PO BID 30 days #60 caps 07/25/25 quetiapine 200 mg tablet 200 mg PO BEDTIME 30 days #30 tabs 07/25/25 quetiapine 50 mg tablet 50 mg PO BID@0900,1500 30 days #60 07/25/25 tabs sertraline 50 mg tablet 150 mg (3 x 50 mg) PO DAILY 30 07/25/25 days #90 tabs thiamine mononitrate (vit B1) 100 100 mg PO DAILY 30 days #30 tabs 07/25/25 mg tablet Allergies Allergy/AdvReac Type Severity Reaction Status Date / Time baclofen Allergy Hives Verified 08/02/25 07:32 escitalopram (From Lexapro) Allergy Vomiting Verified 08/02/25 07:32 fish derived (fish) Allergy Hives Verified 08/02/25 07:32 lithium Allergy Unresponsiv Verified 08/02/25 07:32 e metformin Allergy Unknown Verified 08/02/25 07:32 morphine Allergy Hives Verified 08/02/25 07:32 sulfamethoxazole (From Allergy Hives Verified 08/02/25 07:32 Bactrim) tramadol Allergy Hives Verified 08/02/25 07:32 trimethoprim (From Bactrim) Allergy Hives Verified 08/02/25 07:32 Review of Systems Review of Systems: As per HPI Yes all other systems are reviewed and are negative Constitutional: Constitutional: Reports as per HPI PMFSH Past Medical History Medical History (Updated 08/03/25 @ 07:41 by OLVIN Monzon) Sacral decubitus ulcer Sacral decubitus ulcer Osteomyelitis of foot Decubitus ulcer Amputation of one or more toes Aftercare following right hip joint replacement surgery Bipolar disorder PTSD (post-traumatic stress disorder) Peripheral neuropathy Non-insulin dependent type 2 diabetes mellitus Guillain-[place] Surgical History (Updated 08/02/25 @ 00:01 by Kanu Rodriguez) History of esophagogastroduodenoscopy (EGD) Hx of laminectomy History of total hip replacement Hx of right BKA Social History Social History Household Members: None Housing: Homeless Are you a primary manager intensive care to a significant other at home: No Do you presently have visiting nurse or other home services: No Alcohol intake: former Comment: 5 Patient Tobacco Use Status: Current everyday Tobacco user Tobacco use type: Cigarette Cigarette Packs Per Day: 1 Cigarettes Per Day: 20.0 Years Smoked: 28 e-Cigarette/Vaping Use: Never Used Second Hand Smoke Exposure: No Use of substances other than those prescribed or required for medical reasons: Unknown Substance Use Type: Crack/Cocaine and Marijuana Advance Directives: No Advance Directives Information Provided: No service: No Sexual orientation: Straight/Heterosexual Physical Exam ED Vital Signs: Vital Signs - 24 hr 08/02/25 10:36 08/02/25 15:46 08/02/25 18:30 Temperature 97.6 F 97.3 F 97.1 F Pulse Rate 89 82 87 Respiratory Rate 20 14 15 Blood Pressure 137/87 132/87 129/83 Pulse Oximetry 95 95 94 Oxygen Delivery Method Room Air Room Air Room Air 08/02/25 20:16 08/03/25 07:03 Temperature 98.6 F 97.4 F Pulse Rate 91 105 H Respiratory Rate 16 18 Blood Pressure 137/89 123/73 Pulse Oximetry 95 94 Oxygen Delivery Method Room Air Room Air BMI result Body Mass Index 37.9 Vital signs have been reviewed and appear to be correct. Blood pressure normal. Heart rate normal. Respiratory rate normal. Temperature normal. Oxygen saturation normal. Const General: cooperative and no acute distress Orientation/consciousness: oriented to person, oriented to place, oriented to time and patient oriented x3 Limitations: no limitations [facility] Head: Yes normocephalic and Yes atraumatic Ears: external ears normal General nose exam: Normal external nose present Face and sinus: Yes face symmetric Mouth: oropharynx normal and moist mucous membranes Throat: Yes uvula midline Eyes Pupils: Equal, round and reactive pupils present Neck Neck: Yes normal visual inspection and Yes supple Resp Effort & Inspection: normal respiratory effort and able to speak in complete sentences Auscultation: clear to auscultation bilaterally Cardio Rate: regular rate Rhythm: regular rhythm Heart sounds: S1 normal heart sound present and S2 normal heart sound present GI Palpation (GI): Soft to palpation and nontender Auscultation: normoactive bowel sounds General: Yes no CVA tenderness Back/Spine/Pelvis Back: no CVA tenderness Skin General skin exam: elasticity normal and turgor normal Neuro General: oriented to person, oriented to place, oriented to time, patient oriented x3, moves all extremities, no focal motor deficits and CN's II-XI intact bilaterally Cranial nerves: Yes Equal, round and reactive pupils present Cognition (Neuro): normal cognition Extrem Other: right BKA General: Yes full ROM Psych Appearance: grossly normal Mental Status: mental status grossly normal Speech and movement: Normal speech and movement present Affect: normal affect Attitude: cooperative Thought process: Normal thought process present Thought content: suicidality, no homicidality and Hallucination(s) present visual and tactile; not auditory Insight: Fair insight present (Psych) Judgement: Fair judgement present (Psych) Course Reevaluation(s) Reevaluation #1: Patient was evaluated by care team in a meeting criteria for inpatient. Patient interested in going to [facility]. At this time patient to be discharged the care team will provide transportation via lift. Patient agreeable to this plan. Educated patient on diagnosis and treatment plan, answered all question, patient verbalizes understanding. At this time patient will be discharged home, advised to return with new or worsening symptoms. Educated on worrisome signs and symptoms and when to return. At this time I feel comfortable discharge home. Time: 07:40 Medications Administered Discontinued Medications Generic Name Dose Route Start Last Admin Trade Name Jake PRN Reason Stop Dose Admin Acetaminophen 650 mg 08/02/25 12:03 08/02/25 12:39 Acetaminophen 325 Mg Tablet PO 08/02/25 12:04 650 mg ONCE ONE Administration Chlorpromazine HCl 100 mg 08/02/25 19:51 08/02/25 20:16 Chlorpromazine Hcl 100 Mg Tablet PO 08/02/25 19:52 100 mg ONCE ONE Administration Phenobarbital Sodium 380 mg 08/02/25 10:00 08/02/25 10:33 Phenobarbital Sodium 130 Mg/Ml Im Once IM 08/02/25 10:01 380 mg ONCE ONE Administration Medical Decision Making Medical Decision Making MDM Narrative: Patient is a 40-year-old male with history of T2DM, alcohol use disorder, PTSD, Bipolar disorder, right bKA, Guillain-[place] presenting to the emergency department requesting assistance with detox from alcohol. On exam patient is awake, A+Ox3, VS WNL, afebrile, normal neurological exam without focal deficits, physical exam findings as above. Given reported symptoms and physical exam findings, initial differential includes but is not limited to drug or alcohol intoxication or withdrawal, electrolyte abnormality, alcohol use disorder. Labs grossly within normal limits, no significant electrolyte abnormalities, elevated transaminases. Viral serology negative. Ethanol negative. Phenobarb protocol initiated. Case discussed with OLVIN Ellsworth hospitalist, who does not feel that patient is in acute withdrawal, does not feel he requires inpatient admission for alcohol withdrawal, was just discharged from the inpatient unit on 07/25. She recommends assessment by addiction medicine. Will medically clear patient at this time and place on physician observation for care team evaluation. Differential Diagnosis Differential Diagnoses: The differential diagnosis associated with the presentation includes as per [facility] Admission/Observation Consideration of admission/observation: Escalation of care including admission/observation considered Patient would have been admitted to the hospital and transferred to appropriate facility had their clinical presentation warranted hospital admission. Consult Healthcare Provider Management of the patient was discussed with: Hospitalist Lab Data [facility] Lab Attestation statement: I reviewed the patient's lab results. as per [facility] 08/02/25 08:23 08/02/25 08:23 Labs: Lab Results 08/02/25 08/02/25 08/02/25 Range/Units 08:23 12:42 12:43 WBC 6.7 (4.8-10.8) X10*3/uL RBC 5.27 (4.60-5.80) X10*6/uL Hgb 13.6 L (14.0-18.0) g/dl Hct 42.4 (42.0-52.0) % MCV 80.5 (80.0-98.0) fL MCH 25.8 L (27.0-33.0) pg MCHC 32.1 (31.0-36.0) g/dl RDW 17.2 H (11.0-16.0) % Plt Count 228 D (160-400) X10*3/uL MPV 10.4 (9.4-12.4) fL Immature Gran % (Auto) 0.6 H (0.0-0.4) % Neut % (Auto) 69.8 (45-73) % Lymph % (Auto) 16.7 L (20-40) % [place] % (Auto) 10.4 (2-11) % Eos % (Auto) 2.1 (0-4) % Baso % (Auto) 0.4 (0-2) % Lymph # (Auto) 1.1 L (1.2-4.9) X10*3/uL [place] # (Auto) 0.7 (0.1-1.2) X10*3/uL Eos # (Auto) 0.1 (0.0-0.4) X10*3/uL Baso # (Auto) 0.0 (0.0-0.2) X10*3/uL Abs Immat Gran (auto) 0.04 H (0.00-0.03) X10*3/uL Absolute Neuts (auto) 4.7 (2.0-8.3) x10*3/uL Absolute Nucleated RBC 0.000 (0.0-0.012) X10*3/uL Nucleated RBC % (auto) 0.0 (0.0-0.2) /100WBC Sodium 143 (135-145) mmol/L Potassium 4.0 (3.3-5.1) mmol/L Chloride 110 H (96-108) mmol/L Carbon Dioxide 26 (22-29) mmol/L Anion Gap 11 L (12-20) BUN 14 (9-16) mg/dL Creatinine 0.59 (0.5-1.4) mg/dL Estim Creat Clear Calc 230.8 Estimated GFR > 60 Random Glucose 166 H (60-115) mg/dL Calcium 8.9 (8.4-10.2) mg/dL Magnesium 2.0 (1.6-2.6) mg/dL Total Bilirubin 0.3 (0.0-1.0) mg/dL AST 46 H (5-37) U/L ALT 40 (0-40) U/L Alkaline Phosphatase 122 H (39-117) U/L Total Protein 7.3 (6.5-8.0) g/dL Albumin 4.2 (3.5-5.0) g/dL Lipase 18 (8-78) U/L Urine Color Dark Yellow Urine Appearance Clear Urine pH 6.0 (5.0-9.0) Ur Specific Hooks >= 1.030 H (1.005-1.025) Urine Protein Trace (Neg-Trace) mg/dL Urine Glucose (UA) >=1000 H (Negative) mg/dL Urine Ketones Trace (Negative) mg/dL Urine Blood Negative (Negative) Urine Nitrite Negative (Negative) Ur Leukocyte Esterase Negative (Negative) Urine RBC 0-2 (0-2) /HPF Urine WBC 0-5 (0-5) /HPF Ur Squamous Epith Cells 0-2 (0-2) /HPF Calcium Oxalate Crystal Present Urine Bacteria Trace (None Seen) Hyaline Casts 0-2 (0-2) /LPF Urine Opiates Screen Not Detected (Not Detect) Ur Buprenorphine Scrn Not Detected (Not Detect) ng/mL Ur Oxycodone Screen Not Detected (Not Detect) ng/mL Urine Methadone Screen Not Detected (Not Detect) ng/mL Urine Fentanyl Screen Not Detected (Not Detect) Ur Barbiturates Screen Not Detected (Not Detect) Ur Phencyclidine Scrn Not Detected (Not Detect) Ur Amphetamines Screen Not Detected (Not Detect) U Benzodiazepines Scrn Not Detected (Not Detect) Urine Cocaine Screen POSITIVE H (Not Detect) U Marijuana (THC) Screen POSITIVE H (Not Detect) Ethyl Alcohol < 10 mg/dL Influenza Type A (PCR) NEGATIVE (Negative) Influenza Type B (PCR) NEGATIVE (Negative) RSV RNA Qual (PCR) NEGATIVE (Negative) SARS-CoV-2 RNA (RT-PCR) NEGATIVE (Negative) External Record Review External record reviewed: Inpatient record, Office record and Outpatient record Discharge Plan Discharge Clinical Impression: Substance use Patient Disposition: Xfer Other Transfer Details: [facility] Instructions: Polysubstance Use Disorder (ED) Additional Instructions: Take your medications as prescribed. If you were prescribed antibiotics today, it is important that you take your medication to their entirety, do not skip any doses, do not finish them early. Follow-up with your primary care provider this week. Return to the emergency department with new or worsening symptoms. Such as fevers, chills, chest pain, shortness of breath, nausea, vomiting, dizziness, headache, vision changes, lethargy In case of emergency call 911 Prescriptions: No Action nicotine 21 mg/24 hr Patch 24 Hour 21 mg transdermal DAILY 28 Days Qty: 28 0RF guanfacine 1 mg Tablet Extended Release 24 Hr 1 mg PO DAILY 30 Days Qty: 30 0RF Rx Instructions: Take 1 tab po qam divalproex 500 mg Tablet Extended Release 24 Hr See Rx Instructions .ROUTE .COMPLEX 30 Days Qty: 90 0RF Rx Instructions: Take 1 tab po qam and 2 tabs qhs haloperidol 5 mg Tablet See Rx Instructions .ROUTE .COMPLEX PRN (Reason: agitation) 30 Days Qty: 30 0RF Rx Instructions: Take 1-2 tabs po qd prn for agitation and/or severe anxiety hydroxyzine HCl 50 mg Tablet 50 mg PO Q6H PRN (Reason: mild anxiety) 30 Days Qty: 120 0RF mirtazapine 15 mg Tablet 15 mg PO BEDTIME 30 Days Qty: 30 0RF pregabalin [Lyrica] 100 mg Capsule 100 mg PO BID 30 Days Qty: 60 0RF quetiapine 200 mg Tablet 200 mg PO BEDTIME 30 Days Qty: 30 0RF quetiapine 50 mg Tablet 50 mg PO BID@0900,1500 30 Days Qty: 60 0RF sertraline 50 mg Tablet 150 mg PO DAILY 30 Days Qty: 90 0RF omeprazole 40 mg Capsule,Delayed Release(Dr/Ec) 40 mg PO BID@0630,1630 30 Days Qty: 60 0RF MAG-AL 200-200 mg/5 mL Suspension 30 ml PO Q6H PRN (Reason: Heartburn/Nausea) Qty: 0 0RF cyanocobalamin (vitamin B-12) [Vitamin B-12] 1,000 mcg Tablet 1,000 mcg PO DAILY 30 Days Qty: 30 0RF thiamine mononitrate (vit B1) 100 mg Tablet 100 mg PO DAILY 30 Days Qty: 30 0RF insulin glargine [Lantus Solostar U-100 Insulin] 100 unit/mL (3 mL) insulin pen 30 unit subcut BEDTIME 30 Days Qty: 9 0RF (DME) pen needle, diabetic [Pen Needle] 31 gauge x 5/16 needle See Rx Instructions .Route Qty: 30 0RF Rx Instructions: As directed Print Language: Greek
[2025-08-02 07:27] VITALS: BP 132/90; PULSE 92; O2SAT 94
[2025-08-02 07:28] VITALS: BP 119/79; PULSE 86; RESP 18; TEMP 36.8; O2SAT 93; BMI 37.9
--- NOTE | 2025-08-02 07:41 | PC.NURSE ---
A&Ox4. Patient resting in stretcher. Requesting remote to watch TV. No visible tremors, no diaphoresis, patient denies nausea at this time. Call sanchez placed within reach. No signs of distress.
[2025-08-02 08:30] LABS: MANUAL DIFF FLAG NO
[2025-08-02 08:31] LABS: Hematocrit 42.4 % (42.0-52.0); Hemoglobin 13.6 g/dl (14.0-18.0); Imm Gran Abs Auto 0.04 X10*3/uL (0.00-0.03); Imm Gran Pct Auto 0.6 % (0.0-0.4); Lymphocytes Absolute Auto 1.1 X10*3/uL (1.2-4.9); Mean Corpuscular HGB Conc 32.1 g/dl (31.0-36.0); Mean Corpuscular Hemoglobin 25.8 pg (27.0-33.0); Mean Corpuscular Volume 80.5 fL (80.0-98.0); NRBC Abs Auto 0.000 X10*3/uL (0.0-0.012); NRBC Pct Auto 0.0 /100WBC (0.0-0.2); Platelet Count 228 X10*3/uL (160-400); Red Blood Count 5.27 X10*6/uL (4.60-5.80); White Blood Count 6.7 X10*3/uL (4.8-10.8)
[2025-08-02 08:55] LABS: Alanine Aminotransferase 40 U/L (0-40); Albumin Level 4.2 g/dL (3.5-5.0); Alkaline Phosphatase 122 U/L (39-117); Anion Gap 11 (12-20); Aspartate Amino Transferase 46 U/L (5-37); Blood Urea Nitrogen 14 mg/dL (9-16); Calcium 8.9 mg/dL (8.4-10.2); Carbon Dioxide 26 mmol/L (22-29); Chloride 110 mmol/L (96-108); Creatinine Clr Calc Pharmacy 230.8; Estimated Glomerular Filt Rate > 60; Lipase 18 U/L (8-78); Magnesium 2.0 mg/dL (1.6-2.6); Potassium 4.0 mmol/L (3.3-5.1); Sodium 143 mmol/L (135-145); Total Protein 7.3 g/dL (6.5-8.0)
[2025-08-02 09:07] LABS: Resp Syncy Virus RNA Qual PCR NEGATIVE (Negative); SARS COV2 PCR INHOUSE NEGATIVE (Negative)
[2025-08-02] MEDS: PHENobarbitaL sodium 130 MG/ML IM ONCE 380 MG IM (10:33)
[2025-08-02 10:36] VITALS: BP 137/87; PULSE 89; RESP 20; TEMP 36.4; O2SAT 95
[2025-08-02 12:59] LABS: Appearance Urine Clear; Glucose Urine UA >=1000 mg/dL (Negative); PH 6.0 (5.0-9.0); Specific Gravity - Urine >= 1.030 (1.005-1.025); UMIC TRIGGER UACC YES
[2025-08-02 13:11] LABS: Cannabinoid Screen Urine POSITIVE (Not Detect)
[2025-08-02 15:46] VITALS: BP 132/87; PULSE 82; RESP 14; TEMP 36.3; O2SAT 95
[2025-08-02 18:30] VITALS: BP 129/83; PULSE 87; RESP 15; TEMP 36.2; O2SAT 94
[2025-08-02 20:16] VITALS: BP 137/89; PULSE 91; RESP 16; TEMP 37; O2SAT 95
--- NOTE | 2025-08-02 20:19 | PC.NURSE ---
this rn assumed care of pt, pt CIWA= 1, pt reports he feels tremors but no visible ones felt. pt vss. MD Santana made aware and pt medicated per mar
[2025-08-03 07:03] VITALS: BP 123/73; PULSE 105; RESP 18; TEMP 36.3; O2SAT 94
[2025-08-03 08:05] VITALS: BP 123/73; PULSE 105; RESP 18; TEMP 36.3; O2SAT 94
--- NOTE | 2025-08-03 08:32 | MHC.CARE ---
Pt was transported [place] [facility] [place]
== END 2025-08-03 08:35 | disposition other institution (70) ==
PROVIDERS: Registered Nurse Emergency; Emergency Provider Emergency Medicine
DX: F10.239 Alcohol dependence with withdrawal, unspecified (principal); Y90.0 Blood alcohol level of less than 20 mg/100 ml; F14.90 Cocaine use, unspecified, uncomplicated; R94.31 Abnormal electrocardiogram [ECG] [EKG]; Z03.818 Encounter for observation for suspected exposure to other biological agents ruled out; Z51.81 Encounter for therapeutic drug level monitoring; Z79.899 Other long term (current) drug therapy
CPT/HCPCS: 80053; 80307; 81001; 83690; 83735; 85025; 87637; 93005; 96372; 99285; J2560; S9485

== ENCOUNTER → 2025-08-02 07:22 | Outpatient (BNV) | payer MEDICARE, MEDICAID, SELFPAY | PROVIDERS: Emergency Provider Emergency Medicine; Visit Provider Internal Medicine Cardiovascular Disease | DX: F10.930 Alcohol use, unspecified with withdrawal, uncomplicated (principal) | CPT/HCPCS: 93010 ==

== ENCOUNTER 2025-08-15 00:26 | Emergency (ER) | payer MEDICARE, MEDICAID, SELFPAY ==
[2025-08-15 00:31] VITALS: BP 168/107; BP 171/107; PULSE 80; PULSE 88; RESP 15; TEMP 36.8; O2SAT 98; O2SAT 99; BMI 36.9
--- NOTE | 2025-08-15 00:41 | PC.NURSE ---
pt biba from home, a&ox4, respirations even and unlabored. pt reports sudden onset of lower back pain radiating into bilateral lower extremities. pt reports tylenol/ibuprofen without relief. pt is a R BKA and uses wheelchair at baseline
--- NOTE | 2025-08-15 01:06 | ED_ITS ---
HPI - General Adult General Chief complaint: Back Pain/Injury Stated complaint: BACK AND LE PAIN PER EMS Time Seen by Provider: 08/15/25 01:06 Source: patient Mode of arrival: EMS Limitations: no limitations History of Present Illness ED Provider: Libia Coon PA-C HPI narrative: 40-year-old male with a history of Guillian Moriches syndrome wheelchair-bound, peripheral vascular disease status post right BKA, peripheral neuropathy, sacral decubitus ulcer, type 2 luy-bgwjryg-lmbidavwv diabetes mellitus, hypertension, alcohol use disorder, prior AKA and ETOH withdrawal, mood disorder with history of SI, right hip osteoarthritis status post replacement, chronic pain including chronic back pain, presents with low back pain. Patient states for several days his chronic pain has been exacerbated. The pain is radiating into bilateral lower extremities. Denies urinary retention or bowel incontinence, no weakness of lower extremities from baseline. Patient has known underlying peripheral neuropathy. There was no fall or other trauma that preceded his acute symptoms. Patient states he has been using both ibuprofen and Tylenol without relief of symptoms. Related Data Previous Rx's ?Medication ?Instructions ?Recorded aluminum-magnesium hydroxide 200 30 ml PO Q6H PRN Hear tburn/Nausea 07/25/25 mg-200 mg/5 mL oral suspension #0 mL (MAG-AL) cyanocobalamin (vitamin B-12) 1,000 mcg PO DAILY 30 da ys #30 tabs 07/25/25 1,000 mcg tablet (Vitamin B-12) divalproex 500 mg tablet,extended See Rx Instructions .Route 07/25/25 release 24 hr .COMPLEX 30 days #90 tabs guanfacine 1 mg tablet,extended 1 mg PO DAILY 30 days #30 tabs 07/25/25 release 24 hr haloperidol 5 mg tablet See Rx Instructions .Route 1 09/25/24 .COMPLEX PRN agitation 30 days #30 tabs hydroxyzine HCl 50 mg tablet 50 mg PO Q6H PRN mild anx iety 30 07/25/25 days #120 tabs insulin glargine 100 unit/mL (3 30 unit (0.3 mL) subcu t BEDTIME 30 07/25/25 mL) subcutaneous pen (Lantus days #9 mL Solostar U-100 Insulin) mirtazapine 15 mg tablet 15 mg PO BEDTIME 30 days #30 tabs 07/25/25 nicotine 21 mg/24 hr daily 21 mg transdermal DAILY saleem otine 07/25/25 transdermal patch craving 28 days #28 ea omeprazole 40 mg capsule,delayed 40 mg PO BID@0630,163 0 30 days #60 07/25/25 release caps pen needle, diabetic 31 gauge x #30 ea 07/25/25 5/16 (Pen Needle) pregabalin 100 mg capsule (Lyrica) 100 mg PO BID 30 da ys #60 caps 07/25/25 quetiapine 200 mg tablet 200 mg PO BEDTIME 30 days #3 0 tabs 07/25/25 quetiapine 50 mg tablet 50 mg PO BID@0900,1500 30 da ys #60 07/25/25 tabs sertraline 50 mg tablet 150 mg (3 x 50 mg) PO DAILY 30 07/25/25 days #90 tabs thiamine mononitrate (vit B1) 100 100 mg PO DAILY 30 d ays #30 tabs 07/25/25 mg tablet ketorolac 10 mg tablet 10 mg PO Q6H PRN pain #20 ta bs 08/15/25 prednisone 20 mg tablet 40 mg (2 x 20 mg) PO DAILY # 8 tabs 08/15/25 tizanidine 6 mg capsule 6 mg PO Q8H PRN pain, modera te #10 08/15/25 caps Allergies Allergy/AdvReac Type Severity Reaction Status Date / Time baclofen Allergy Hives Verified 08/15/25 00:36 escitalopram (From Lexapro) Allergy Vomiting Verified 08/15/25 00:36 fish derived (fish) Allergy Hives Verified 08/15/25 00:36 lithium Allergy Unresponsiv Verified 08/15/25 00:36 e metformin Allergy Unknown Verified 08/15/25 00:36 morphine Allergy Hives Verified 08/15/25 00:36 sulfamethoxazole (From Allergy Hives Verified 08/15/25 00:36 Bactrim) tramadol Allergy Hives Verified 08/15/25 00:36 trimethoprim (From Bactrim) Allergy Hives Verified 08/15/25 00:36 Review of Systems Review of Systems: Yes all other systems are reviewed and are negative Constitutional: Constitutional: Denies fatigue and Denies fever(s) Cardiovascular: Cardiovascular: Denies chest pain and Denies dyspnea Respiratory: Respiratory: Denies dyspnea Gastrointestinal: Gastrointestinal: Denies abdominal pain, Reports nausea and Denies vomiting Musculoskeletal: Musculoskeletal: Reports back pain, Denies muscle weakness, Reports radiating pain into limb and Reports tingling Neurologic: Reports tingling Endocrine: Endocrine: Denies fatigue PMFSH Past Medical History Attestation statement: The following information was validated with the patient. Medical History (Updated 08/15/25 @ 01:57 by OLVIN Rivas) Sacral decubitus ulcer Sacral decubitus ulcer Osteomyelitis of foot Decubitus ulcer Amputation of one or more toes Aftercare following right hip joint replacement surgery Bipolar disorder PTSD (post-traumatic stress disorder) Peripheral neuropathy Non-insulin dependent type 2 diabetes mellitus Guillain-Moriches Surgical History (Updated 08/11/25 @ 00:01 by Kanu Rodriguez) History of esophagogastroduodenoscopy (EGD) Hx of laminectomy History of total hip replacement Hx of right BKA Social History Social History Household Members: None Housing: Homeless Are you a primary career technical counselor to a significant other at home: No Do you presently have visiting nurse or other home services: No Alcohol intake: current Alcohol intake frequency: does not drink Alcohol type: hard liquor Comment: 5 Patient Tobacco Use Status: Current everyday Tobacco user Tobacco use type: Cigarette Cigarette Packs Per Day: 1 Cigarettes Per Day: 20.0 Years Smoked: 28 Smoked in Last 30 Days: Yes e-Cigarette/Vaping Use: Never Used Second Hand Smoke Exposure: No Use of substances other than those prescribed or required for medical reasons: Yes Substance Use Type: Marijuana Advance Directives: No Advance Directives Information Provided: Yes service: No Sexual orientation: Straight/Heterosexual Physical Exam ED Vital Signs: Vital Signs - 24 hr 08/15/25 00:31 Temperature 98.3 F Pulse Rate 88 Respiratory Rate 15 Blood Pressure 171/107 H Pulse Oximetry 99 Oxygen Delivery Method Room Air BMI result Body Mass Index 36.9 Const Other: Awake, appears older than stated age Orientation/consciousness: patient oriented x3 Resp Effort & Inspection: normal respiratory effort Cardio Other: Normal peripheral perfusion Skin Other: Warm dry no rash Neuro General: patient oriented x3, no focal motor deficits and CN's II-XI intact bilaterally Extrem Other: Moving both lower extremities independently Medications Administered Discontinued Medications Generic Name Dose Route Start Last Admin Trade Name Freq PRN Reason Stop Dose Admin Ketorolac Tromethamine 15 mg 08/15/25 01:23 08/15/25 01:32 Ketorolac Tromethamine 15 Mg/Ml Vial IM 08/15/25 01:24 15 mg ONCE ONE Administration Methocarbamol 1,500 mg 08/15/25 01:23 08/15/25 01:32 Methocarbamol 750 Mg Tablet PO 08/15/25 01:24 1,500 mg ONCE ONE Administration Metoclopramide HCl 10 mg 08/15/25 01:23 08/15/25 01:32 Metoclopramide Hcl 10 Mg/2 Ml Vial IM 08/15/25 01:24 10 mg ONCE ONE Administration Prednisone 40 mg 08/15/25 01:23 08/15/25 01:31 Prednisone 20 Mg Tablet PO 08/15/25 01:24 40 mg ONCE ONE Administration Medical Decision Making Medical Decision Making MDM Narrative: 40-year-old male with a history of Guillian Moriches syndrome wheelchair-bound, peripheral vascular disease status post right BKA, peripheral neuropathy, sacral decubitus ulcer, type 2 xno-zaxnqfy-kjvticmnm diabetes mellitus, hypertension, alcohol use disorder, prior AKA and ETOH withdrawal, mood disorder with history of SI, right hip osteoarthritis status post replacement, chronic pain including chronic back pain, presents with low back pain. Patient states for several days his chronic pain has been exacerbated. The pain is radiating into bilateral lower extremities. Denies urinary retention or bowel incontinence, no weakness of lower extremities from baseline. Patient has known underlying peripheral neuropathy. There was no fall or other trauma that preceded his acute symptoms. Patient states he has been using both ibuprofen and Tylenol without relief of symptoms. Problem: Wheelchair-bound, peripheral vascular disease, chronic back pain, neuropathy, diabetes, alcohol use disorder History: Per patient I have considered the following differential diagnoses: Lumbar radiculopathy, compression fracture, lumbar strain, cauda equina, medication seeking behavior Plan: Patient has chronic low back pain, he is having radicular symptoms, he has a neuropathy at baseline, he has no new weakness he has no red flag signs symptoms concerning for cord compression. Unfortunately, the patient is seen in the emergency department often for chronic pain related complaints, seeking opiate analgesia. I am offering a steroid burst, Toradol, and a muscle relaxant. I am also going to suggest he follow up with primary care for physical therapy. This is a chronic issue, I am not prescribing opiate pain medication. Furthermore, there was no trauma, there is no indication for imaging. Differential Diagnosis Differential Diagnoses: The differential diagnosis associated with the presentation includes See MDM Admission/Observation Consideration of admission/observation: Escalation of care including adm ission/observation considered Not applicable Discharge Plan Discharge Clinical Impression: Bilateral lumbar radiculopathy Patient Disposition: Home, Self-Care Additional Instructions: You are being treated for your chronic back pain. You need to follow up with primary care, you would benefit from physical therapy, they can expedite this process for you. In the meantime, take the steroid as directed, take the ketorolac as directed, take the tizanidine as needed, this is a muscle relaxant. Do not drive or operate machinery while taking this medication. Call your primary care Wednesday to schedule a follow up appointment. Prescriptions: New prednisone 20 mg tablet 40 mg PO DAILY Qty: 8 0RF tizanidine 6 mg capsule 6 mg PO Q8H PRN (Reason: pain, moderate) Qty: 10 0RF ketorolac 10 mg tablet 10 mg PO Q6H PRN (Reason: pain) Qty: 20 0RF Rx Instructions: maximum total duration of 5 days from all oral, intranasal, or parenteral formulations, patient received an intramuscular dose of Toradol here in the emergency room No Action nicotine 21 mg/24 hr Patch 24 Hour 21 mg transdermal DAILY 28 Days Qty: 28 0RF guanfacine 1 mg Tablet Extended Release 24 Hr 1 mg PO DAILY 30 Days Qty: 30 0RF Rx Instructions: Take 1 tab po qam divalproex 500 mg Tablet Extended Release 24 Hr See Rx Instructions .ROUTE .COMPLEX 30 Days Qty: 90 0RF Rx Instructions: Take 1 tab po qam and 2 tabs qhs haloperidol 5 mg Tablet See Rx Instructions .ROUTE .COMPLEX PRN (Reason: agitation) 30 Days Qty: 30 0RF Rx Instructions: Take 1-2 tabs po qd prn for agitation and/or severe anxiety hydroxyzine HCl 50 mg Tablet 50 mg PO Q6H PRN (Reason: mild anxiety) 30 Days Qty: 120 0RF mirtazapine 15 mg Tablet 15 mg PO BEDTIME 30 Days Qty: 30 0RF pregabalin [Lyrica] 100 mg Capsule 100 mg PO BID 30 Days Qty: 60 0RF quetiapine 200 mg Tablet 200 mg PO BEDTIME 30 Days Qty: 30 0RF quetiapine 50 mg Tablet 50 mg PO BID@0900,1500 30 Days Qty: 60 0RF sertraline 50 mg Tablet 150 mg PO DAILY 30 Days Qty: 90 0RF omeprazole 40 mg Capsule,Delayed Release(Dr/Ec) 40 mg PO BID@0630,1630 30 Days Qty: 60 0RF MAG-AL 200-200 mg/5 mL Suspension 30 ml PO Q6H PRN (Reason: Heartburn/Nausea) Qty: 0 0RF cyanocobalamin (vitamin B-12) [Vitamin B-12] 1,000 mcg Tablet 1,000 mcg PO DAILY 30 Days Qty: 30 0RF thiamine mononitrate (vit B1) 100 mg Tablet 100 mg PO DAILY 30 Days Qty: 30 0RF insulin glargine [Lantus Solostar U-100 Insulin] 100 unit/mL (3 mL) insulin pen 30 unit subcut BEDTIME 30 Days Qty: 9 0RF (DME) pen needle, diabetic [Pen Needle] 31 gauge x 5/16 needle See Rx Instructions .Route Qty: 30 0RF Rx Instructions: As directed Print Language: Nigerien
--- OUTSIDE RECORDS SUMMARY | 2025-08-15 01:38 | XMS_ITS | Encounter Summary ---
Author Organization [facility] Address [address] [place] [address] Care Team Providers Care Project Management Manager Name Role Phone Rosa Sepulveda DOCUMENTATION ENGINEER Primary Care Provider +1- [phone] Encounter Details Date Type Department Care Team (Late st Contact Info) Description 04/11/2020 Scanned Document [facility] Plastic & Reconstructive Surgery [address] [place] [address] David Corrales MD [address] [place] [address] Social History Tobacco Use Types Packs/Day Years [...] filedocumented in this encounter Care Teams Project Management Manager Relationship Specialty Start Date End Date Rosa Sepulveda NP [address] [place] [address] PCP - General 05/09/19 documented as of this encounter
--- OUTSIDE RECORDS SUMMARY | 2025-08-15 01:38 | XMS_ITS | Encounter Summary ---
Author Organization [facility] Address [address] [facility] [address] [place] [address] Phone Care Team Providers Care Nib Inspector Name Role Phone Rosa Sepulveda MATERNAL CHILD NURSE Primary Care Provider +1- [phone] Encounter Details Date Type Department Care Team (Late st Contact Info) Description 06/01/2025 Procedure Pass [facility], Ct Scan - [facility] [address] [place] [address] Social History Tobacco Use Types Packs/Day Years [...] on filedocumented in this encounter Care Teams Nib Inspector Relationship Specialty Start Date End Date Rosa Sepulveda NP [address] [place] [address] PCP - General Family Medicine 09/13/19 documented as of this encounter Additional Source Comments The information contained in this document represents components of the legal health record. It is not the complete legal health record.[facility]
--- OUTSIDE RECORDS SUMMARY | 2025-08-15 01:38 | XMS_ITS | Encounter Summary ---
Author Organization [facility] Address [address] [place] [address] Care Team Providers Care Wire Saw Operator Name Role Phone Rosa Sepulveda SPARE HAND Primary Care Provider +1- [phone] Encounter Details Date Type Department Care Team (Late st Contact Info) Description 04/11/2020 Scanned Document [facility] Plastic & Reconstructive Surgery [address] [place] [address] David Corrales MD [address] [place] [address] Social History Tobacco Use Types Packs/Day Years [...] on filedocumented in this encounter Care Teams Wire Saw Operator Relationship Specialty Start Date End Date Rosa Sepulveda NP [address] [place] [address] PCP - General 05/09/19 documented as of this encounter
--- OUTSIDE RECORDS SUMMARY | 2025-08-15 01:38 | XMS_ITS | Data Portability ---
Author Organization [place] [facility] Address [address] [place] [address] Care Team Providers Care Office Equipment Technician Name Role Phone [facility] Primary Care Provider Assessment Encounter [...] I have accessed patient records on the [employer] Information Exchange. This information was pertinent in [...] By Organization Details Last Modified Time 09/03/2019 184083 YOU WERE SEEN FO R WRIST FRACTURE. WE APPLIED WRIST BRACE. PLEASE, KEEP YOUR ARM ELEVATED, APPLY ICE 20 MIN ON/OFF. PLEASE, FOLLOW UP WITH ORTHO SCHEDULED. Thank you for your visit with [email or web address] today. We cannot always find the exact [...] in your condition between 8am-10pm, please call [facility] at [phone] to help navigate your care. Thank you for your visit with [email or web address] today. You do not appear to have [...] in your condition between 8am-10pm, please [facility] at [phone] to help navigate your care. zoey Not available 09/03/2019 13:25:38 Reason for Referral None Reported. Medical Equipment None Reported. Allergies Allergen ID Allergen Name Allergen Category Reaction Reaction Severity Criticality Documentation Date Start Date Code Code System Note Provider Name and Address Organization Details Recorded Time 78902 baclofen medicatio n Not available Not available Not available 09/03/2019 1292 RxNorm OLVIN SINGLETARY [address] [place] [place], [address], [place] [facility] 13:07:35 [...] Never Smoker OLVIN SINGLETARY [address], [place], [address], [place] [facility] 09/03/2019 13:30:41 How Many [...] ICD10 Code Diagnosis IMO Codes Diagnosis Note [id number] OLVIN SINGLETARY [facility] [address] [place] [address] 09/03/2019 13:05:13 09/05/2019 20:30:49 Pain in upper limb [id number] M79.601 Traumatic injury [id number] T14.90XA Health Concerns Section Related Observation LastModified by Organization Detai ls LastModified Time None Recorded Concern Status LastModified by Organization Details LastModified Time None Recorded Advance Directives Directive None Recorded Payers Insurance Date Sequence Insurance Name Policy Number Policy Marinelli Covered Member ID Marinelli Member ID Guarantor Name 09/05/2019 2 [place] [facility] Jean Roldan [id number] Jean Roldan 09/02/2019 1 *SELF PAY* Jean Roldan [id number] Jean Roldan 09/03/2019 1 MEDICARE B[place] [facility] Jean Roldan [id number] Jean Roldan Notes Date Note Type Note [...] affected extremity. OLVIN SINGLETARY [address], [place], [address], [place] [facility] 09/03/2019 13:49:15
--- OUTSIDE RECORDS SUMMARY | 2025-08-15 01:38 | XMS_ITS | Encounter Summary ---
Author Organization [facility] Address [address] [place] [address] Care Team Providers Care Director Learning And Development Name Role Phone Rosa Sepulveda NP Primary Care Provider +1- [phone] Encounter Details Date Type Department Care Team (Late st Contact Info) Description 07/17/2019 Scanned Document [facility] Plastic & Reconstructive Surgery [address] [place] [address] David Corrales MD [address] [place] [address] Social History Tobacco Use Types Packs/Day Years [...] documented as of this encounter Care Teams Director Learning And Development Relationship Specialty Start Date End Date Rosa Sepulveda NP [address] [place] [address] PCP - General 05/09/19 documented as of this encounter
--- OUTSIDE RECORDS SUMMARY | 2025-08-15 01:38 | XMS_ITS | Encounter Summary ---
Author Organization [facility] Address [address] [place] [address] Care Team Providers Care Can Sealer Name Role Phone Rosa Sepulveda NP Primary Care Provider +1- [phone] Encounter Details Date Type Department Care Team ([facility] st Contact Info) Description 07/23/2020 Scanned Document [facility] Plastic & Reconstructive Surgery [address] [place] [address] David Corrales MD [address] [place] [address] Social History Tobacco Use Types Packs/Day Years [...] on filedocumented in this encounter Care Teams Can Sealer Relationship Specialty Start Date End Date Rosa Sepulveda NP [address] [place] [address] PCP - General 05/09/19 documented as of this encounter
--- OUTSIDE RECORDS SUMMARY | 2025-08-15 01:38 | XMS_ITS | Encounter Summary ---
Author Organization [facility] Address [address] [place] [address] Phone Care Team Providers Care Ferryboat Operator Cable Name Role Phone Rosa Sepulveda NP Primary Care Provider +1- [phone] Encounter Details Date Type Department Care Team (Late st Contact Info) Description 05/27/2020 Procedure Pass [place] Admitting Dept - Virtual Department [address] [place] [address] Social History Tobacco Use Types Packs/Day Years [...] on filedocumented in this encounter Care Teams Ferryboat Operator Cable Relationship Specialty Start Date End Date Rosa Sepulveda NP [address] [place] [address] PCP - General Family Medicine 09/13/19 documented as of this encounter Additional Source Comments The information contained in this document represents components of the legal health record. It is not the complete legal health record.[facility]
--- OUTSIDE RECORDS SUMMARY | 2025-08-15 01:38 | XMS_ITS | Clinical Summary ---
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 1/2-1 tab at bedtime 05/29/20 25 Active ondansetron (ZOFRAN) 4 mg [...] a day if needed for anxiety. Active haloperidoL (HALDOL) 5 mg tablet Take 1 tablet (5 mg total) by mouth 2 (two) times a day. 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 Encounters Date Type Department Care Team Description 07/27/2025 4:04 PM EST - 07/30/2025 1:13 PM [facility] Emergency [address] [place] [phone] Guille Lang MD Kokkinos, Erika, MD Reid, Oswald George, MD Ziebro, John, MD Mersier, Jasmine, DO Suicidal ideation (Primary Dx); Homelessness; Acute pharyngitis, unspecified etiology; Malingering Discharge Disposition: Home or Self Care 07/18/2025 5:54 AM EST - 07/18/2025 5:21 PM [facility] Emergency [address] [place] [phone] Glenn Kan MD Suicidal ideation (Primary Dx) Discharge Disposition: [facility] 06/14/2025 2:54 AM EDT - 06/16/2025 2:57 PM EDT Emergency [facility] Emergency [address] [place] [phone] Chauncey Flores MD Deslouches, Joshua, MD Flores, Carlos M, MD Gordon, Ruth, MD Dunbar, MD Rayshawn Torres Oswald George, MD Dietrich, Brianna, MD Trench foot of left lower extremity, initial encounter (Primary Dx); Chest wall pain Discharge Disposition: Home or Self Care 06/09/2025 4:15 AM EDT - 06/12/2025 3:05 PM EDT Emergency [facility] Emergency [address] [place] [phone] Justine Castillo MD Wyman, Tim, MD Zaidi, MD Clementine Dial Ashley, MD Landry, Jonathan P, MD Reid, Vamshi Foy MD Suicidal ideation (Primary Dx); Rhinovirus infection; Enterovirus infection; Musculoskeletal chest pain Discharge Disposition: Home or Self Care 06/04/2025 5:13 PM EDT - 06/04/2025 10:05 PM EDT Emergency [facility] Emergency [address] [place] [phone] Kenton Panchal MD Anxiety (Primary Dx); Injury of head, initial encounter; Neck pain; Chest wall pain Discharge Disposition: Home or Self Care from Last 3 Months Surgical History Surgery Date Site/Laterality Comments OTHER SURGICAL HISTORY PROCEDURE: [place] ANESTHESIA OPEN HIP JOINT PROCEDURE NOS ILEOSTOMY CLOSURE 08/23/2013 - 08/22/2014 per emr HERNIA REPAIR Medical History Medical History Date Comments Anxiety DX:Anxiety PTSD (post-traumatic stress disorder) DX:PTSD (post-traumatic stress disorder) Guillain Christopher syndrome ([facility] V24) DX:Guillain Christopher syndrome (HCC) DM (diabetes mellitus) ([facility]/ [facility] V24, [facility] V28) History of right lower extre mity amputation ([facility] V24, [facility] V28) Hypertension Diabetic neuropathy ([facility] V24, [facility] V28) per EMR Osteomyelitis of sacrum ([facility] V24, [facility] V28) 2021 per EMR Decubitus ulcer of ischial a nica, right, unspecified pressure ulcer stage 2018 with flap/reconstruct chaitanya surgery x 3 per EMR Major depressive disorder per em r Social History Tobacco Use Types Packs/Day Years [...] Sign Reading Time Taken Comments Blood Pressure 120/88 07/30/2025 1:12 PM EST Pulse 94 07/30/2025 1:12 PM EST Temperature 36.7 C (98 F) 07/30/2025 1:12 PM EST Respiratory Rate 18 07/30/2025 1:12 PM EST Oxygen Saturation 99% 07/30/2025 1:12 PM EST Inhaled Oxygen Concentration - - [...] Diabetes: Annual Urine Albumin-Creatinine Ratio (uACR) 08/02/2022 Depression Screening 08/23/2024 COVID-19 Vaccine (4 - 2025-26 season) 2025 07/29/2021, 01/16/2021, 12/26/2020 Influenza Vaccine (#1) 2025 09/03/2016, 2006 Diabetes: Blood Sugar Control Test (HGBA1C) 01/25/2026 07/27/2025 Diabetes: Annual GFR (Glomerular Filtration Rate) 07/27/2026 07/27/2025, 07/18/2025, 06/09/2025, Additional history exists RSV Immunization Adult Patients [...] Associated Diagnosis Comments POCT GLUCOSE BLOOD Routine 07/30/2025 7: 39 AM EST POCT GLUCOSE BLOOD Routine 07/29/2025 5: 16 PM EST POCT GLUCOSE BLOOD Routine 07/29/2025 12 :32 PM EST POCT GLUCOSE BLOOD Routine 07/29/2025 8: 10 AM EST POCT GLUCOSE BLOOD Routine 07/28/2025 5: 07 PM EST POCT GLUCOSE BLOOD Routine 07/28/2025 12 :38 PM EST POCT GLUCOSE BLOOD Routine 07/28/2025 8: 52 AM EST METHADONE SCREEN, URINE STAT 07/28/2025 12:59 AM EST PHENCYCLIDINE, URINE STAT 07/28/2025 12:59 AM EST BUPRENORPHINE SCREEN, URINE STAT 07/28/2025 12:59 AM EST DRUG ABUSE SCREEN 8A PANEL, URINE STAT 07/28/2025 12:59 AM EST CULTURE THROAT STAT 07/27/2025 6:56 PM EST RAPID STREP A SCREEN STAT 07/27/2025 6:56 PM EST [id number], RSV, FLU A AND B QUALITATIVE RT-PCR, INTERNAL LAB STAT 07/27/2025 6:56 PM EST HEMOGLOBIN A1C Add-On 07/27/2025 4:59 PM EST CBC WITH AUTO DIFFERENTIAL STAT 07/27/2025 4:59 PM EST SALICYLATE LEVEL STAT 07/27/2025 4:59 PM EST ACETAMINOPHEN LEVEL STAT 07/27/2025 4 :59 PM EST ETHANOL STAT 07/27/2025 4:59 PM EST COMPREHENSIVE METABOLIC PANEL STAT 07/27/2025 4:59 PM EST CBC AND DIFFERENTIAL STAT 07/27/2025 4:59 PM EST ECG 12-LEAD STAT 07/18/2025 2:34 PM EST [...] WO CONTRAST STAT 06/04/2025 6:46 PM EDT from Last 3 Months Results * (ABNORMAL) POCT Glucose, blood (07/30/2025 7:39 AM EST) Only the most recent of10 resultswithin the time period is included. [facility] Glucose POCT 160(H) 70 - 100 mg/dL 07/30/2025 7:40 AM EST [facility] Blood Capillary blood specimen / Unknown 07/30/2025 7:39 AM EST 07/30/2025 7:41 AM EST us Justine Castillo MD LAB POINT OF CARE TE ST DOCKED DEVICE UNSOLICITED RESULTS Final Result [facility] [address] [place] [address], [place] [phone] * (ABNORMAL) Drug abuse screen 8a panel, urine (07/28/2025 12:59 AM EST) Only the most recent of3 resultswithin the time period is included. [facility] Amphetamine Screen, Ur Negative Negative 07/28/2025 2:29 AM EST [facility] Comment:Certain OTC medicati ons containing ephedrine, phenylephrine, pseudoephedrine and phenylpropanolamine can cause false positive results. Barbiturate Screen, Ur Negative Negative 07/28/2025 2:29 AM [facility] Benzodiazepine Screen, Ur Positive(A ) Negative 07/28/2025 2:29 AM [facility] Cocaine Screen, Ur Negative Negative 2024 2:29 AM [facility] Opiate Screen, Ur Negative Negative 2:29 AM [facility] Cannabinoid (THC) Screen, Ur Positive(A ) Negative 07/28/2025 2:29 AM [facility] Comment:Specimens from patie nts taking pantoprazole sodium (Protonix) have been shown to produce false positive results. Oxycodone Screen, Ur Negative Negative 01/2025 2:29 AM [facility] Fentanyl, Ur Negative Negative 07/28/2025 2:29 AM [facility] Urine Urine specimen obtained by clean catch procedure / Unknown Non-blood Collection / Unknown 07/28/2025 12:59 AM EST 07/28/2025 2:05 AM EST [facility] - 07/28/2025 2:29 AM EST Assay cutoffs: Amphetamines 1000 ng/mL Barbiturates 200 ng/mL Benzodiazepines 200 ng/mL Cocaine 300 ng/mL Fentanyl 1 ng/mL Opiates 300 ng/mL Oxycodone 100 ng/mL THC 50 ng/mL Semi-quantitative assay for screening purposes only. Unconfirmed screening result should not be used for non-medical purposes. *ALTERNATE METHOD CONFIRMATION DONE UPON REQUEST ONLY* us Guille Lang MD LAB URINE ORDERABLES Final Result [facility] [address] [place] [address], * Buprenorphine screen, urine (07/28/2025 12:59 AM EST) Only the most recent of3 resultswithin the time period is included. Buprenorphine Screen Urine Negative Negative 07/28/2025 6:14 AM EST [facility] Urine Urine specimen obtained by clean catch procedure / Unknown Non-blood Collection / Unknown 07/28/2025 12:59 AM EST 07/28/2025 2:05 AM EST Narrative [facility] - 07/28/2025 6:14 AM EST Assay cutoff 5 ng/mL Semi-quantitative assay for screening purposes only. Unconfirmed screening result should not be used for non-medical purposes. *ALTERNATE METHOD CONFIRMATION DONE UPON REQUEST ONLY* us Guille Lang MD LAB URINE ORDERABLES Final Result Performing Organization Address [facility] de Phone Number [facility] [address] [place] [address], [place] [phone] * Methadone, urine (07/28/2025 12:59 AM EST) Only the most recent of3 resultswithin the time period is included. [facility] Methadone Screen, Urine Negative Negative 07/28/2025 2:29 AM EST [facility] Comment: Assay cutoff 300 ng/mL Semi-quantitative assay for screening purposes only. Unconfirmed screening result should not be used for non-medical purposes. *ALTERNATE METHOD CONFIRMATION DONE UPON REQUEST ONLY* Urine Urine specimen obtained by clean catch procedure / Unknown Non-blood Collection / Unknown 07/28/2025 12:59 AM EST 07/28/2025 2:05 AM EST us Guille Lang MD LAB URINE ORDERABLES Final Result Performing Organization Address [facility] Co de Phone Number [facility] [address] [place] [address], [place] [phone] * Phencyclidine, urine (07/28/2025 12:59 AM EST) Only the most recent of3 resultswithin the time period is included. PCP Scrn, Ur Negative Negative 07/28/2025 2:29 AM EST [facility] Comment: Assay cutoff 25 ng/mL Semi-quantitative assay for screening purposes only. Unconfirmed screening result should not be used for non-medical purposes. *ALTERNATE METHOD CONFIRMATION DONE UPON REQUEST ONLY* Urine Urine specimen obtained by clean catch procedure / Unknown Non-blood Collection / Unknown 07/28/2025 12:59 AM EST 07/28/2025 2:05 AM EST us Guille Lang MD LAB URINE ORDERABLES Final Result Performing Organization Address City/[facility]/ZIP Co de Phone Number [facility] [address] [place] [address], [place] [phone] * [id number], RSV, Influenza A and B qualitative RT-PCR (07/27/2025 6:56 PM EST) Pathologist [facility] Influenza A PCR Not Detected Not Detected LAB MICROBIOLOGY METHOD 07/27/2025 8:01 PM [facility] Influenza B PCR Not Detected Not Detected LAB MICROBIOLOGY METHOD 07/27/2025 8:01 PM [facility] RSV PCR Not Detected Not Detected LAB MICROBIOLOGY METHOD 07/27/2025 8:01 PM [facility] SARS COV-2 Not Detected Not Detected LAB MICROBIOLOGY METHOD 07/27/2025 8:01 PM [facility] Swab Nasopharyngeal structure / Unknown Non-blood Collection / Unknown 07/27/2025 6:56 PM EST 07/27/2025 7:19 PM EST us Guille Lang MD LAB MICROBIOLOGY - GENERAL ORDERABLES Final Result Performing Organization Address City/[facility]/ZIP Co de Phone Number [facility] [address] [place] [address], [place] [phone] * Rapid strep A screen (07/27/2025 6:56 PM EST) Strep A Ag Negative Negative, Invalid 07/27/2025 7:33 PM EST [facility] Comment:Refer to Throat Cult ure. Swab Structure of anterior region of neck / Unknown Non-blood Collection / Unknown 07/27/2025 6:56 PM EST 07/27/2025 7:20 PM EST us Guille Lang MD LAB MICROBIOLOGY - GENERAL ORDERABLES Final Result [facility] [address] [place] [address], [place] [phone] * Culture throat (07/27/2025 6:56 PM EST) [facility] Culture, Throat No pathogens isolated. 07/29/2025 10:17 AM EST [facility] Swab Structure of anterior region of neck / Unknown Non-blood Collection / Unknown 07/27/2025 6:56 PM EST 07/27/2025 7:20 PM EST us Guille Lang MD LAB MICROBIOLOGY - GENERAL ORDERABLES Final Result Performing Organization Address City/[facility]/ZIP Co de Phone Number [facility] [address] [place] [address], [place] [phone] * (ABNORMAL) CBC auto differential (07/27/2025 4:59 PM EST) Only the most recent of3 resultswithin the time period is included. WBC 8.4 4.8 - 10.8 K/[facility] LAB HEMETOLOGY METHOD 07/27/2025 5:20 PM EST [facility] RBC 5.10 4.50 - 5.50 M/[facility] LAB HEMETOLOGY METHOD 07/27/2025 5:20 PM EST [facility] Hemoglobin 13.3(L) 13.5 - 17.5 g/dL LAB HEMETOLOGY METHOD 07/27/2025 5:20 PM [facility] Hematocrit 40.5(L) 42.0 - 54.0 % LAB HEMETOLOGY METHOD 07/27/2025 5:20 PM [facility] MCV 79.6 79.0 - 98.0 [place] LAB HEMETOLOGY METHOD 07/27/2025 5:20 PM [facility] MCH 26.1(L) 27.0 - 32.0 pcg LAB HEMETOLOGY METHOD 07/27/2025 5:20 PM [facility] MCHC 32.8 32.0 - 37.0 g/dL LAB HEMETOLOGY METHOD 07/27/2025 5:20 PM [facility] RDW 16.7(H) 11.0 - 15.0 % LAB HEMETOLOGY METHOD 07/27/2025 5:20 PM [facility] Platelets 180 130 - 400 K/mcL LAB HEMETOLOGY METHOD 07/27/2025 5:20 PM [facility] MPV 11.5(H) 7.0 - 11.0 FL LAB HEMETOLOGY METHOD 07/27/2025 5:20 PM [facility] NRBC 0.0 <1.0 % LAB HEMETOLOGY METHOD 07/27/2025 5:20 PM [facility] NRBC Absolute 0.00 <0.10 K/mcL LAB HEMETOLOGY METHOD 07/27/2025 5:20 PM [facility] Neutrophils Relative 74.8 % LAB HEMETOLOGY METHOD 07/27/2025 5:20 PM [facility] Lymphocytes Relative 15.8 % LAB HEMETOLOGY METHOD 07/27/2025 5:20 PM [facility] Monocytes Relative 7.0 % LAB HEMETOLOGY METHOD 07/27/2025 5:20 PM [facility] Eosinophils Relative 1.4 % LAB HEMETOLOGY METHOD 07/27/2025 5:20 PM [facility] Basophils Relative 0.4 % LAB HEMETOLOGY METHOD 07/27/2025 5:20 PM [facility] Immature Granulocytes Relative 0.6 % LAB HEMETOLOGY METHOD 07/27/2025 5:20 PM EST [facility] Neutrophils Absolute 6.29 1.50 - 7.00 K/mcL LAB HEMETOLOGY METHOD 07/27/2025 5:20 PM EST [facility] Lymphocytes Absolute 1.33 1.00 - 5.00 K/mcL LAB HEMETOLOGY METHOD 07/27/2025 5:20 PM [facility] Monocytes Absolute 0.59 0.20 - 1.00 K/mcL LAB HEMETOLOGY METHOD 07/27/2025 5:20 PM EST [facility] Eosinophils Absolute 0.12 0.00 - 0.50 K/mcL LAB HEMETOLOGY METHOD 07/27/2025 5:20 PM EST [facility] Basophils Absolute 0.03 0.00 - 0.20 K/mcL LAB HEMETOLOGY METHOD 07/27/2025 5:20 PM [facility] Immature Granulocytes Absolute 0.05(H) 0.00 - 0.03 K/mcL LAB HEMETOLOGY METHOD 07/27/2025 5:20 PM EST [facility] Blood Venous blood specimen / Unknown Venipuncture / Unknown 07/27/2025 4:59 PM EST 07/27/2025 5:12 PM EST us Guille Lang MD LAB BLOOD ORDERABLES Final Result [facility] [address] [place] [address], * (ABNORMAL) Hemoglobin A1c (07/27/2025 4:59 PM EST) Hemoglobin A1C 7.5(H) <6.5 % LAB CHEMISTRY METHOD 08/01/2025 5:30 PM EST [facility] Mean Bld Glu Estim. 169 mg/dL LAB CHEMISTRY METHOD 08/01/2025 5:30 PM EST [facility] Blood Venous blood specimen / Unknown Venipuncture / Unknown 07/27/2025 4:59 PM EST 07/27/2025 5:12 PM EST us Guille Lang MD LAB BLOOD ORDERABLES Final Result [facility] [address] [place] [address], [place] [phone] * Ethanol (07/27/2025 4:59 PM EST) Only the most recent of3 resultswithin the time period is included. Ethanol Level <3 0 - 10 mg/dL 07/27/2025 6:16 PM EST [facility] Blood Venous blood specimen / Unknown Venipuncture / Unknown 07/27/2025 4:59 PM EST 07/27/2025 5:12 PM EST us Guille Lang MD LAB BLOOD ORDERABLES Final Result [facility] [address] [place] [address], [place] [phone] * (ABNORMAL) Acetaminophen level (07/27/2025 4:59 PM EST) Only the most recent of3 resultswithin the time period is included. Acetaminophen Level <2.0(L) 10.0 - 30.0 mcg/mL 07/27/2025 5:43 PM EST [facility] Blood Venous blood specimen / Unknown Venipuncture / Unknown 07/27/2025 4:59 PM EST 07/27/2025 5:12 PM EST us Guille Lang MD LAB BLOOD ORDERABLES Final Result Performing Organization Address [facility]/ZIP Co de Phone Number [facility] [address] [place] [address], [place] [phone] * Salicylate level (07/27/2025 4:59 PM EST) Only the most recent of3 resultswithin the time period is included. Salicylate Level <3.0 2.0 - 29.0 mg/dL 07/27/2025 6:16 PM [facility] Blood Venous blood specimen / Unknown Venipuncture / Unknown 07/27/2025 4:59 PM EST 07/27/2025 5:12 PM EST us Guille Lang MD LAB BLOOD ORDERABLES Final Result Performing Organization Address [facility] de Phone Number [facility] [address] [place] [address], [place] [phone] * (ABNORMAL) Comprehensive metabolic panel (07/27/2025 4:59 PM EST) Only the most recent of3 resultswithin the time period is included. Sodium 143 133 - 145 mmol/L 07/27/2025 5:43 PM [facility] Potassium 4.0 3.5 - 5.5 mmol/L 07/27/2025 5:43 PM [facility] Chloride 106 96 - 110 mmol/L 07/27/2025 5:43 PM [facility] CO2 24 21 - 32 mmol/L 07/27/2025 5:43 PM [facility] Anion Gap 13(H) 3 - 11 07/27/2025 5:43 PM [facility] Glucose 101(H) 70 - 100 mg/dL 07/27/2025 5:43 PM [facility] BUN 16 5 - 25 mg/dL 07/27/2025 5:43 PM [facility] Creatinine 0.66(L) 0.70 - 1.30 mg/dL 07/27/2025 5:43 PM [facility] eGFR 120 >=60 mL/min/1. 73m2 07/27/2025 5:43 PM [facility] Comment:Calculation based on the Chronic Kidney Disease Epidemiology Collaboration (CKD-EPI) equation refit without adjustment for race. BUN/Creatinine Ratio 24.2 07/27/2025 5:43 PM [facility] Calcium 9.2 8.5 - 10.5 mg/dL 07/27/2025 5:43 PM [facility] AST (SGOT) 31 10 - 42 unit/L 07/27/2025 5:43 PM [facility] ALT (SGPT) 32 10 - 60 unit/L 07/27/2025 5:43 PM [facility] Alkaline Phosphatase 118 42 - 121 unit/L 07/27/2025 5:43 PM [facility] Total Protein 6.5 6.0 - 8.0 g/dL 07/27/2025 5:43 PM [facility] Albumin 4.3 3.2 - 5.0 g/dL 07/27/2025 5:43 PM [facility] Total Bilirubin 0.4 0.0 - 1.4 mg/dL 07/27/2025 5:43 PM [facility] Blood Venous blood specimen / Unknown Venipuncture / Unknown 07/27/2025 4:59 PM EST 07/27/2025 5:12 PM EST Guille Lang MD LAB BLOOD ORDERABLES Final Result Performing Organization Address [facility] Co de Phone Number [facility] [address] [place] [address], * ECG 12 lead (07/18/2025 2:34 PM EST) Ventricular Rate ECG 96 BPM GEMUSE Atrial Rate 96 BPM GEMUSE P-R Interval 142 ms GEMUSE QRS Duration 76 ms GEMUSE Q-T Interval 340 ms GEMUSE QTc 429 ms GEMUSE P Wave Orient 41 degrees GEMUSE R Orient -15 degrees GEMUSE T Orient 17 degrees GEMUSE ECG Interpretation Normal sinus rhythm Inferior infarct (cited on or before 02-MAR-2022) Possible Anterior infarct (cited on or before 02-MAR-2022) When compared with ECG of 21-FEB-2025 23:59, No significant change was found Confirmed by EDUARDO BUCIO ([id number]) on 07/20/2025 12:09:34 AM GEMUSE 07/18/2025 2:34 PM EST 07/20/2025 12:09 AM EST Glenn Kan MD ECG ORDERABLES Final Result Performing Organization Address [facility] de Phone Number GEMUSE * XR Chest 2 Views (06/14/2025 4:26 AM EDT) Only the most recent of2 resultswithin the time period is included. Anatomical Region Laterality Modality Body Radiographic Cee ging 06/14/2025 8:18 AM EDT Impressions 06/14/2025 8:19 AM EDT Somewhat limited depth of inspiration. No acute pulmonary disease. No change since 06/09/2025. Code 25877 -------- FINAL REPORT -------- Dictated By: Karan Kendrick Dictated Date: 06/14/2025 08:18 ET Assigned Physician: Karan Kendrick Reviewed and Electronically Signed By: Karan Kendrick Signed Date: 06/14/2025 08:19 ET Workstation ID: [id number] Transcribed By: Self Edit Transcribed Date: 06/14/2025 [...] as also seen on the prior study [id number]. The bony structures are of normal appearance. The cardiac andmediastinal contours are within normal limits. The lungs and costophrenicangles are clear. IMPRESSION: Somewhat limited depth of inspiration. No acute pulmonary disease. Nochange since 06/09/2025. Code 94224 -------- FINAL REPORT -------- Dictated By: Karan Kendrick Dictated Date: 06/14/2025 08:18 ET Assigned Physician: Karan Kendrcik Reviewed and Electronically Signed By: Karan Kendrick Signed Date: 06/14/2025 08:19 ET Workstation ID: [id number] Transcribed By: Self Edit Transcribed Date: 06/14/2025 08:18 ET Chauncey Flores MD IMG XR PROCEDURES Final Result * (ABNORMAL) Respiratory virus panel molecular study (06/09/2025 6:37 AM EDT) Adenovirus Detection by PCR Not Detected Not Detected LAB MICROBIOLOGY METHOD 06/09/2025 8:04 AM EDT [facility] Influenza A PCR Not Detected Not Detected LAB MICROBIOLOGY METHOD 06/09/2025 8:04 AM EDT [facility] Influenza B PCR Not Detected Not Detected LAB MICROBIOLOGY METHOD 06/09/2025 8:04 AM EDT [facility] Coronavirus 229E Not Detected Not Detected LAB MICROBIOLOGY METHOD 06/09/2025 8:04 AM EDT [facility] Coronavirus HKU1 Not Detected Not Detected LAB MICROBIOLOGY METHOD 06/09/2025 8:04 AM EDT [facility] Coronavirus OC43 Not Detected Not Detected LAB MICROBIOLOGY METHOD 06/09/2025 8:04 AM EDT [facility] Coronavirus NL63 Not Detected Not Detected LAB MICROBIOLOGY METHOD 06/09/2025 8:04 AM EDT [facility] Parainfluenza Virus 1 Not Detected Not Detected LAB MICROBIOLOGY METHOD 06/09/2025 8:04 AM EDT [facility] Parainfluenza Virus 2 Not Detected Not Detected LAB MICROBIOLOGY METHOD 06/09/2025 8:04 AM EDT [facility] Parainfluenza Virus 3 Not Detected Not Detected LAB MICROBIOLOGY METHOD 06/09/2025 8:04 AM EDT [facility] Parainfluenza Virus 4 Not Detected Not Detected LAB MICROBIOLOGY METHOD 06/09/2025 8:04 AM EDT [facility] RSV PCR Not Detected Not Detected LAB MICROBIOLOGY METHOD 06/09/2025 8:04 AM EDT [facility] Human Metapneumovirus A and B Not Detected Not Detected LAB MICROBIOLOGY METHOD 06/09/2025 8:04 AM EDT [facility] Rhinovirus/Entero virus Detected(A ) Not Detected LAB MICROBIOLOGY METHOD 06/09/2025 8:04 AM EDT [facility] Bordetella pertussis Not Detected Not Detected LAB MICROBIOLOGY METHOD 06/09/2025 8:04 AM EDT [facility] Bordetella parapertussis Not Detected Not Detected LAB MICROBIOLOGY METHOD 06/09/2025 8:04 AM EDT [facility] Mycoplasma pneumo by PCR Not Detected Not Detected LAB MICROBIOLOGY METHOD 06/09/2025 8:04 AM EDT [facility] Chlamydia pneumoniae Not Detected Not Detected LAB MICROBIOLOGY METHOD 06/09/2025 8:04 AM EDT [facility] SARS COV-2 Not Detected Not Detected LAB MICROBIOLOGY METHOD 06/09/2025 8:04 AM EDT [facility] Swab Both anterior nares / Unknown Non-blood Collection / Unknown 06/09/2025 6:37 AM EDT 06/09/2025 6:53 AM EDT Narrative [facility] - 06/09/2025 8:04 AM EDT Testing was performed using the Xambala Respiratory Pathogen PCR Assay. All results must [...] MICROBIOLOGY - GENERAL ORD ERABLES Final Result [facility] [address] [place] [address], * CT Cervical Spine wo Contrast (06/04/2025 [...] Guerita BAH IMG CT PROCEDURES Final Result from Last 3 Months Insurance MEDICARE MEDICAID [...] currently active code status orders. Care Teams Drafting Detailer Relationship Specialty Start Date End Date Physician, No Pcp PCP - General 07/18/25
--- OUTSIDE RECORDS SUMMARY | 2025-08-15 01:38 | XMS_ITS | Clinical Summary ---
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 Imy-Dsodudlnbuz-Fqqamazfaaz en 09/13/2019 Diclofenac Sodium 02/08/2020 Topical,states steward [...] 06/02/2025 12:37 PM EDT Emergency [facility] [address] [place] [address] Jaiden Govea MD Devries, MD Saeed Martinez, Sharda Drake MD Discharge Disposition: Home or Self Care 06/01/2025 Procedure Pass [facility], Ct Scan [address] [address] 06/01/2025 Procedure Pass [facility], [address] [address] from Last 3 Months Social History Tobacco [...] (LEFT) (06/02/2025 6:59 AM EDT) MGB IMG BALLOON DIPPER COMMENT Erosive changes involving the third digit proximal phalanx with widening of the joint may represent septic arthritis. Further imaging with MRI recommended. [facility] Anatomical Region Laterality Modality Foot Left Computed Radiogr aphy 06/02/2025 7:20 AM EDT Impressions 06/02/2025 7:47 AM EDT Erosive changes involving the third digit proximal phalanx with widening of the joint may represent septic arthritis. Further imaging with MRI recommended. A clinically significant result was initiated on 06/02/2025 7:47 AM, Message ID [id number]. ATTESTATION: Abimbola Frausto as teaching physician, have [...] was initiated on 06/02/2025 7:47 AM,Message ID [id number]. ATTESTATION: Abimbola Frausto as teaching physician, have [...] HS Gen5 14 0 - 14 ng/L [facility] Blood 06/01/2025 2:30 PM EDT 06/01/2025 2:37 PM EDT Jaiden Govea MD LAB BLOOD BKR ORDERABLES Final R esult [address] [address] * XR CHEST 1 VIEW (06/01/2025 2:25 [...] clinician's provided indication for this examination in [facility]:Pain; Wide mediastinum on AP, COMPARISON: XR [...] clinician's provided indication for this examination in [facility]: * Mental status change, unknown cause [...] of the cervical spine. Jaiden Govea MD [facility] XSPECIALTY ORDERABLES Fin al Result * [...] clinician's provided indication for this examination in [facility]: * Mental status change, unknown cause [...] clinician's provided indication for this examination in [facility]: *Mental status change, unknown cause TECHNIQUE: [...] clinician's provided indication for this examination in [facility]: Respiratory failure COMPARISON: None FINDINGS: Devices/Tubes/Lines: None. Lungs: There are low lung volumes with mild prominence of interstitium likely related to technique. No definite consolidation. Pleura: No pleural effusion or pneumothorax. Heart/Mediastinum: Widening of the cardiomediastinal silhouette Bones/Soft Tissues: No significant abnormality. Procedure Note Pratima Garcia MD - 06/01/2025 XR CHEST PORTABLE Referring clinician's provided indication for this examination in [facility]:Respiratory failure COMPARISON: None FINDINGS: Devices/Tubes/Lines: None. [...] Glucose, POCT 171(H) 70 - 100 mg/dL [facility] 06/01/2025 6:49 AM EDT 06/01/2025 6:54 AM EDT us Jaiden Govea MD POINT OF CARE TEST ORDERABLES Fi nal Result [address] [address] * ECG 12-LEAD (06/01/2025 6:48 AM EDT) Ventricular Rate EKG/MIN 98 BPM [facility] Atrial Rate 98 BPM [facility] MO Interval 158 ms [facility] QRS Duration 84 ms [facility] QT Interval 348 ms [facility] QTC Interval 444 ms [facility] P Burns 52 degrees [facility] R Wave Burns -14 degrees [facility] T Wave Burns 37 degrees [facility] 06/01/2025 6:48 AM EDT [...] 6:42 AM EDT) ETHANOL 419(H) <10 mg/dL [facility] Blood 06/01/2025 6:42 AM EDT 06/01/2025 7:00 AM EDT us Jaiden Govea MD LAB BLOOD BKR ORDERABLES Final R esult Performing Organization Address City/[facility]/ZIP Co de Phone Number [address] [address] * (ABNORMAL) LFTs (hepatic panel) (06/01/2025 6:42 AM EDT) ALKALINE PHOSPHATASE 120(H) 39 - 117 U/L [facility] TOTAL BILIRUBIN 0.5 0.0 - 1.2 mg/dL [facility] DIRECT BILIRUBIN 0.1 0.0 - 0.2 mg/dL [facility] Bilirubin (Indirect) NOT CALCULATED 0 - 1.5 mg/dL [facility] AST 45(H) 0 - 37 U/L [facility] ALT 38 0 - 40 U/L [facility] TOTAL PROTEIN 8.1(H) 6.5 - 8.0 g/dL [facility] ALBUMIN 4.8 3.9 - 4.8 g/dL [facility] GLOBULIN 3.3 1 - 4.8 g/dL [facility] A/G Ratio 1.45 1.00 - 4.80 RATIO [facility] Blood 06/01/2025 6:42 AM EDT 06/01/2025 7:00 AM EDT us Jaiden Govea MD LAB BLOOD BKR ORDERABLES Final R esult [address] [address] * (ABNORMAL) PT-INR (06/01/2025 6:42 AM EDT) PT 14.0(H) 10.2 - 12.9 sec [facility] INR 1.1 0.9 - 1.1 [facility] Comment:Therapeutic range fo r oral Vitamin K antagonists: 2.0-3.5 Blood 06/01/2025 6:42 AM EDT 06/01/2025 7:00 AM EDT us Jaiden Govea MD LAB BLOOD BKR ORDERABLES Final R esult [facility] [address] [place], [place] [id number] * (ABNORMAL) CBC and differential (06/01/2025 6:42 AM EDT) WBC 12.83(H) 4.00 - 11.00 K/uL [facility] RBC 5.96(H) 4.50 - 5.90 M/uL [facility] HGB 15.2 13.5 - 17.5 g/dL [facility] HCT 48.0 41.0 - 53.0 % [facility] PLT 325 150 - 450 K/uL [facility] MCV 80.5 80.0 - 100.0 fL [facility] MCH 25.5(L) 27.0 - 31.0 pg [facility] MCHC 31.7(L) 32.0 - 36.0 g/dL [facility] RDW 15.0(H) 11.5 - 14.5 % [facility] MPV 10.7 8.4 - 12.0 fL [facility] NRBC 0.00 0.00 /100 WBCs [facility] ABSOLUTE NRBC 0.00 0.00 K/uL [facility] DIFF METHOD Manual [facility] TOTAL CELLS COUNTED 100 [facility] NEUTS 56.0 48.0 - 76.0 % [facility] BANDS 3.0 0 - 10 % [facility] LYMPHS 33.0 18.0 - 41.0 % [facility] Comment:Few atypical Lymphs seen. MONOS 3.0(L) 4.0 - 11.0 % [facility] EOS 1.0 0.0 - 5.0 % [facility] BASOS 2.0(H) 0.0 - 1.5 % [facility] MYELOS 1.0(H) 0 % [facility] METAS 1.0(H) 0 % [facility] ABSOLUTE NEUTS 7.57 1.92 - 7.60 K/uL [facility] ABSOLUTE LYMPHS 4.23(H) 0.72 - 4.10 K/uL [facility] ABSOLUTE MONOS 0.38 0.16 - 1.10 K/uL [facility] ABSOLUTE EOS 0.13 0.00 - 0.50 K/uL [facility] ABSOLUTE BASOS 0.26(H) 0.00 - 0.15 K/uL [facility] ABSOLUTE MYELOS 0.13 K/uL [facility] ABSOLUTE METAS 0.13 K/uL [facility] Blood 06/01/2025 6:42 AM EDT 06/01/2025 7:00 AM EDT us Jaiden Govea MD LAB BLOOD BKR ORDERABLES Final R esult [address] [address] * Magnesium (06/01/2025 6:42 AM EDT) MAGNESIUM 2.1 1.6 - 2.6 mg/dL [facility] Blood 06/01/2025 6:42 AM EDT 06/01/2025 7:00 AM EDT us Jaiden Govea MD LAB BLOOD BKR ORDERABLES Final R esult [address] [address] * Lipase (06/01/2025 6:42 AM EDT) LIPASE 58 16 - 63 U/L [facility] 06/01/2025 6:42 AM EDT 06/01/2025 7:00 AM EDT us Jaiden Govea MD LAB BLOOD BKR ORDERABLES Final R esult [address] [address] * (ABNORMAL) Venous blood gas (06/01/2025 6:42 AM EDT) pH, Venous 7.25(L) 7.31 - 7.41 [facility] PCO2, Venous 38.80(L) 41.00 - 51.00 mmHg [facility] PO2, Venous 111.40(H) 35.00 - 40.00 mmHg [facility] HCO3, Venous 17(L) 23 - 28 mmol/L [facility] BASE DEFICIT VENOUS 9.7(H) 0.0 - 2.0 mmol/L [facility] SO2, VENOUS 97.10(H) 60.00 - 80.00 % [facility] FO2HB, VENOUS 94.00(H) 71.00 - 74.00 % [facility] Carboxy Hgb 3.10(H) 0 - 1.50 % [facility] MetHgb % 0.10 0 - 1.50 % [facility] Blood 06/01/2025 6:42 AM EDT 06/01/2025 6:59 AM EDT us Jaiden Govea MD LAB BLOOD BKR ORDERABLES Final R esult [address] [address] * (ABNORMAL) Acetaminophen level (06/01/2025 6:42 AM EDT) ACETAMINOPHEN <5.0(L) 15.0 - 30.0 ug/mL [facility] Blood 06/01/2025 6:42 AM EDT 06/01/2025 7:00 AM EDT us Jaiden Govea MD LAB BLOOD BKR ORDERABLES Final R esult [address] [address] * (ABNORMAL) Salicylates (06/01/2025 6:42 AM EDT) SALICYLATES <0.3(L) 2.8 - 19.9 mg/dL [facility] Blood 06/01/2025 6:42 AM EDT 06/01/2025 7:00 AM EDT us Jaiden Govea MD LAB BLOOD BKR ORDERABLES Final R esult Performing Organization Address City/[facility]/ZIP Co de Phone Number [address] [address] * (ABNORMAL) Basic metabolic panel (06/01/2025 6:42 AM EDT) SODIUM 140 133 - 146 mmol/L [facility] CHLORIDE 102 96 - 108 mmol/L [facility] POTASSIUM 3.4 3.3 - 5.1 mmol/L [facility] CO2 18(L) 21 - 35 mmol/L [facility] BUN 13 6 - 19 mg/dL [facility] CREATININE 0.60 0.5 - 1.5 mg/dL [facility] GLUCOSE 177(H) 70 - 99 mg/dL [facility] CALCIUM 9.3 8.4 - 10.3 mg/dL [facility] EGFR >120 >59 mL/min/1.7 3m2 [facility] Comment:Estimated glomerular filtration rate calculated using the CKD-EPI refit equation. ANION GAP 23(H) 10 - 20 mmol/L [facility] Blood 06/01/2025 6:42 AM EDT 06/01/2025 7:00 AM EDT us Jaiden Govea MD LAB BLOOD BKR ORDERABLES Final R esult Performing Organization Address City/[facility] Co de Phone Number [address] [address] from Last 3 Months Insurance MEDICARE PART A & B [facility] MEDIC[facility] PART A & B MEDICARE PART A & B [facility] PART [facility] B [facility] MEDICARE PART A & B [address] [place], [place] [address]HEALTH MEDICARE PART A & B HEALTH MEDICARE PART A & B [place] MED[place]ARE PART A & B [facility] PART A & B [facility] Care Teams Laundry Attendant Relationship Specialty Start Date End Date Rosa eSpulveda NP [address] [place] [address] PCP - General Family Medicine 09/13/19 Additional Source Comments The information contained in this document represents components of the legal health record. It is not the complete legal health record.[facility]
--- OUTSIDE RECORDS SUMMARY | 2025-08-15 01:38 | XMS_ITS | Encounter Summary ---
Author Organization [facility] Address [address] [place] [address] Phone Care Team Providers Care Broadcast Supervisor Name Role Phone Rosa Sepulveda NP Primary Care Provider +1- [phone] Encounter Details Date Type Department Care Team (Late st Contact Info) Description 05/27/2020 Procedure Pass [place] Admitting Dept - Virtual Department [address] [place] [address] Social History Tobacco Use Types Packs/Day Years [...] on filedocumented in this encounter Care Teams Broadcast Supervisor Relationship Specialty Start Date End Date Rosa Sepulveda NP [address] [place] [address] PCP - General Family Medicine 09/13/19 documented as of this encounter Additional Source Comments The information contained in this document represents components of the legal health record. It is not the complete legal health record.[facility]
--- OUTSIDE RECORDS SUMMARY | 2025-08-15 01:38 | XMS_ITS | Clinical Summary ---
Author Organization [facility] Address [address] [place] [address] Care Team Providers Care Renewal Specialist Name Role Phone Rosa Sepulveda NP Primary Care Provider +1- [phone] Allergies Active Allergy Reactions Criticality Noted Date [...] Influenza Vaccine 03/23/2025 COVID-19 Vaccine (1 - 2024-2 6 season) 2025 HPV Vaccines (No Doses Required) Completed Pneumococcal Vaccine: Pediat jesse (0-5 Years) and At-Risk Patients (6 to 49 Years) Aged Out No longer eligible b ased on patient's age to complete this topic Insurance MEDICARE PART A & B MEDICAID OUT OF STATE [facility] [place] * Full Code (Latest Code Status on File) Date Activated Date Inactivated Comments 06/19/2019 11:45 AM 07/11/2019 11:50 AM Care Teams Renewal Specialist Relationship Specialty Start Date End Date Rosa Sepulveda NP [address] [place] [address] PCP - General 05/09/19
--- OUTSIDE RECORDS SUMMARY | 2025-08-15 01:38 | XMS_ITS | Patient Health Record ---
Author Organization [facility] Address [address] [place] [id number] Care Team Providers Care Special Projects Manager Name Role Phone NO, PCP Primary Care Provider [phone] [facility], Nursing Unavailable [phone] Reason For Referral No Information Plan Of Treatment Next Appt Details Provider Name:Nursing [facility], 10/05/2025 01:30:00 PM, [address] [place], [address], Insurance Providers Payer Name Payer Address Payer Phone Subscriber Number Group Number Insured Name Patient Relationship to Insured Coverage Start Date Coverage End Date [place] Medicare Part [place] [employer] [address] [facility] [place] [address] [id number] Jean Roldan Self - patient is the insured 5 [place] Medicaid Standard [address] [place] [address] [id number] Jean Roldan Self - patient is the insured 5
--- OUTSIDE RECORDS SUMMARY | 2025-08-15 01:38 | XMS_ITS | Encounter Summary ---
Author Organization [facility] Address [address] [place] [address] Care Team Providers Care Collection Teller Name Role Phone Rosa Sepulveda NP Primary Care Provider +1- [phone] Encounter Details Date Type Department Care Team (Late st Contact Info) Description 07/08/2020 [facility] [address] [place] [address] David Corrales MD [address] [place] [address] Social History Tobacco Use Types Packs/Day Years [...] on filedocumented in this encounter Care Teams Collection Teller Relationship Specialty Start Date End Date Rosa Sepulveda NP [address] [place] [address] PCP - General 05/09/19 documented as of this encounter
--- OUTSIDE RECORDS SUMMARY | 2025-08-15 01:38 | XMS_ITS | Clinical Summary ---
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 albuterol (PROAIR HFA,VENTOLIN HFA) 90 mcg inhaler Inhale 2 puffs by mouth every 6 hours as needed for wheezing or shortness of breath. Active omeprazole (PriLOSEC) 40 mg capsule Take 40 mg by mouth 2 (two) times a day. At 6:30 AM and 4:30 PM 04/14/20 25 Active cyanocobalamin (vitamin B-12) 1,000 mcg tablet Take 1,000 mcg by mouth once a day. Active thiamine HCl (VITAMIN B1) 100 mg tablet Take 100 mg by mouth once a day. Active haloperidoL (HALDOL) 10 mg tablet Take 1 tablet (10 mg total) by mouth 2 times a day as needed for agitation. 60 tablet 08/14/20 25 2025 Active hydrOXYzine HCL (ATARAX) 50 mg tablet Take 1 tablet (50 mg total) by mouth 3 times a day as needed for anxiety. 90 tablet 08/14/20 25 2025 Active pregabalin (LYRICA) 100 mg capsule Take 1 capsule (100 mg total) by mouth every 12 hours. 60 capsule 08/14/20 Active QUEtiapine (SEROquel) 300 mg tablet Take 1 tablet (300 mg total) by mouth nightly. 30 tablet 08/14/20 25 2025 Active sertraline (ZOLOFT) 100 mg tablet Take 1.5 tablets (150 mg total) by mouth once a day. 45 tablet 08/14/20 Active naltrexone (REVIA) 50 mg tablet Take 1 tablet (50 mg total) by mouth once a day. 30 tablet 08/15/20 Active divalproex ER (DEPAKOTE ER) 500 mg tablet Take 3 tablets (1,500 mg total) by mouth every night. 90 tablet 08/14/20 Active insulin glargine (LANTUS SOLOSTAR) 100 unit/mL insulin pen Inject 30 Units under the skin every night. 9 mL 08/14/20 25 Active nicotine (NICODERM CQ) 21 mg/[address] 1 patch on the skin once a day for 14 days. 14 patch 08/15/20 25 2025 Active Remeron 15 mg tablet Take 1 tablet (15 mg total) by mouth nightly. 30 tablet 08/14/20 Active divalproex ER (DEPAKOTE ER) 500 mg tablet Take 500 mg by mouth in the morning. 07/25/20 25 2024 Discontinued(S top Taking at Discharge) escitalopram (LEXAPRO) 10 mg tablet Take 10 mg by mouth daily. 02/02/20 25 2024 Discontinued(E rror) haloperidoL (HALDOL) 5 mg tablet Take 5-10 mg by mouth daily as needed for agitation (and/or severe anxiety). 07/25/20 25 2024 Discontinued(S top Taking at Discharge) hydrOXYzine (ATARAX) 50 mg tablet Take 50 mg by mouth every 6 hours as needed for anxiety. 04/14/202024 Discontinued(S top Taking at Discharge) lamoTRIgine (LaMICtal) 25 mg tablet Take 25 mg by mouth daily. 02/27/202024 Discontinued(E rror) Remeron 15 mg tablet Take 15 mg by mouth nightly. 05/29/202024 Discontinued(E rror) ondansetron (ZOFRAN ODT) 4 mg disintegrating tablet Dissolve 4 mg in the mouth every 8 hours as needed for nausea. 05/21/202024 Discontinued(S top Taking at Discharge) pregabalin (LYRICA) 100 mg capsule Take 100 mg by mouth 2 times daily. 02/02/202024 Discontinued QUEtiapine (SEROquel) 200 mg tablet Take 200 mg by mouth nightly. 07/25/202024 Discontinued(S top Taking at Discharge) sertraline (ZOLOFT) 50 mg tablet Take 150 mg by mouth once a day. 07/25/202024 Discontinued divalproex ER (DEPAKOTE ER) 500 mg tablet Take 1,000 mg by mouth every night. 2024 Discontinued cyanocobalamin (vitamin B-12) 1,000 mcg tablet Take 1,000 mcg by mouth once a day. 2024 Discontinued(E rror) guanFACINE ER (INTUNIV ER) 1 mg tablet Take 1 mg by mouth in the morning. 2024 Discontinued(S top Taking at Discharge) nicotine (NICODERM CQ) 21 mg/[address] 1 patch on the skin daily. 2024 Discontinued(S top Taking at Discharge) insulin glargine (LANTUS SOLOSTAR) 100 unit/mL insulin pen Inject 30 Units under the skin every night. 2024 Discontinued QUEtiapine (SEROquel) 50 mg tablet Take 50 mg by mouth 2 times a day. At 9 am and 3 pm. 2024 Discontinued(S top Taking at Discharge) mirtazapine (REMERON) 15 mg tablet Take 15 mg by mouth nightly. 2024 Discontinued(S top Taking at Discharge) Active Problems Problem Noted Date Diagnosed Date Bipolar 1 disorder, depressed, moderate 08/14/20 Major depressive disorder, r ecurrent, severe without psychotic features 08/07/2025 Alcohol use disorder 08/07/2025 Anemia 08/07/2025 Bipolar disorder 08/07/2025 Chronic leg pain 08/07/2025 Chronic osteomyelitis of sacrum 08/07/2025 History of below-knee amputation of right lower extremity 08/07/2025 Housing insecurity 08/07/2025 Lactic acidosis 08/07/2025 Metabolic acidosis 08/07/2025 PTSD (post-traumatic stress disorder) 08/07/2025 Severe alcohol dependence 08/07/2025 Alcohol withdrawal syndrome 02/22/2025 Guillain-[place] syndrome 05/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 Date Type Department Care Team Description 08/07/2025 1:36 PM EST - 08/07/2025 6:48 PM EST Emergency [facility] Emergency Department [address] [place] [id number] Renzo Vaughan MD Graham, Powell L., MD Adjustment disorder with depressed mood [F43.21] (Primary Dx) Discharge Disposition: [facility] (INPT Psych facility/unit) (65) from Last 3 Months Family History Medical History Relation Name Comments Drug abuse Father Alcohol abuse Mother Depression Mother Relation Name Status Comments Father Mother Social History Tobacco Use Types Packs/Day Years Used Date Smoking Tobacco: Some Days Tobacco Cessation:Ready to Q uit: Not Asked; Counseling Given: Not Answered Hunger Vital Sign Answer Date Recorded Within the past 12 months, y ou worried that your food would run out before you got the money to buy more. Often true 08/08/20 Within the past 12 months, t he food you bought just didn't last and you didn't have money to get more. Often true 08/08/2025 [facility] Utilities Answer Date Recorded In the past 12 months has th e [employer], gas, oil, or water company threatened to shut off services in your home? Yes 08/08/2025 Transportation Answer Date Recorded In the past 12 months, has l ack of reliable transportation kept you from medical appointments, meetings, work or from getting things needed for daily living? Yes 08/08/2025 Housing Answer Date Recorded Housing Risk Low Not on file 08/08/2025 Housing Risk Medium Not on file 08/08/2025 Housing Risk High 1 08/08/2025 What is your living situation today? [facility]NOSTEADY 08/08/2025 Sex and Gender Information Value Date Recorded Sex Assigned at Male 08/07/2025 8:30 AM EST Legal Sex Male 8:25 AM EDT Gender Identity Male 08/07/2025 7:47 PM EST Sexual Orientation Straight 08/07/2025 7: 47 PM EST Last Filed Vital Signs Vital Sign Reading Time Taken Comments Blood Pressure 152/100 08/14/2025 6:18 AM EST Pulse 71 08/14/2025 6:18 AM EST Temperature 36.5 C (97.7 F) 08/14/2025 6:18 AM EST Respiratory Rate 20 08/14/2025 6:18 AM EST Oxygen Saturation 95% 08/14/2025 6:18 AM EST Inhaled Oxygen Concentration - - Weight 127 kg (280 lb) 08/07/2025 6:55 PM EST Height 185.4 cm (6' 1 ) 08/07/2025 6:55 PM EST Body Mass Index 36.94 08/07/2025 6:55 PM EST Plan of Treatment Health Maintenance Due Date Last Done Comments HIV Screening 1983 Hepatitis C Screening 1983 Medicare AWV 02/01/1984 Ophthalmology Exam 1993 Urine Microalbumin 1993 Varicella Vaccines (1 of 2 - 13+ 2-dose series) 02/01/1996 Hepatitis B Vaccines (1 of 3 - 19+ 3-dose series) 2002 Pneumococcal Vaccine: Pediat jesse (0-5 Years) and At-Risk Patients (6-50 Years) (1 of 2 - PCV) 2002 DTaP,Tdap,and Td Vaccines (1 - Tdap) 2005 Alcohol/Substance Use Screening 08/23/2024 Depression Screening and Follow-Up 08/23/2024 Social Drivers of Health Bertha ual Screening 08/23/2024 Influenza Vaccine (#1) 2025 COVID-19 Vaccine (4 - 2024-2 6 season) 2025 07/29/2021, 01/16/2021, 12/26/2020 Hemoglobin A1C 02/06/2026 08/08/2025 Basic Metabolic Panel 08/08/2026 08/08/2025 , 08/07/2025, 07/27/2025, Additional history exists Abdominal Aortic Aneurysm (A AA) Screening Completed 02/22/2025 Procedures * Due to [place] state law, this organization might not be sharing negative HIV tests. Procedure Name Priority Date/Time Associated Diagnosis Comments POCT GLUCOSE Routine 08/14/2025 11:22 AM EST POCT GLUCOSE Routine 08/14/2025 7:38 AM EST VALPROIC ACID LEVEL, TOTAL Routine 08/14/2025 5:34 AM EST POCT GLUCOSE Routine 08/13/2025 8:07 PM EST POCT GLUCOSE Routine 08/13/2025 4:19 PM EST POCT GLUCOSE Routine 08/13/2025 11:20 AM EST POCT GLUCOSE Routine 08/13/2025 8:00 AM EST POCT GLUCOSE Routine 08/12/2025 8:16 PM EST POCT GLUCOSE Routine 08/12/2025 4:24 PM EST POCT GLUCOSE Routine 08/12/2025 11:19 AM EST POCT GLUCOSE Routine 08/12/2025 7:20 AM EST POCT GLUCOSE Routine 08/11/2025 8:04 PM EST POCT GLUCOSE Routine 08/11/2025 4:26 PM EST POCT GLUCOSE Routine 08/11/2025 11:44 AM EST POCT GLUCOSE Routine 08/11/2025 7:49 AM EST POCT GLUCOSE Routine 08/10/2025 8:13 PM EST POCT GLUCOSE Routine 08/10/2025 4:31 PM EST POCT GLUCOSE Routine 08/10/2025 12:03 PM EST POCT GLUCOSE Routine 08/10/2025 7:56 AM EST POCT GLUCOSE Routine 08/09/2025 8:20 PM EST MVL QS - COVID-19, FLU A/B & RSV RNA PCR, SYMPTOMATIC Routine 08/09/2025 4:43 PM EST POCT GLUCOSE Routine 08/09/2025 4:08 PM EST POCT GLUCOSE Routine 08/09/2025 11:05 AM EST LAMOTRIGINE (LAMICTAL) LEVEL Routine 08/09/2025 8:17 AM EST VALPROIC ACID LEVEL, TOTAL Routine 08/09/2025 8:16 AM EST POCT GLUCOSE Routine 08/09/2025 7:52 AM EST POCT GLUCOSE Routine 08/08/2025 9:21 PM EST ECG 12-LEAD Routine 08/08/2025 6:40 PM EST POCT GLUCOSE Routine 08/08/2025 4:38 PM EST DRUGS OF ABUSE SCREEN, URINE (AMPH,KYLER,IZZY,BUP,CO C,FENT,[place],METH,OPS,O XY) Routine 08/08/2025 7:26 AM EST FOLATE Routine 08/08/2025 6:52 AM EST VITAMIN B12 Routine 08/08/2025 6:52 AM EST VITAMIN B12 Routine 08/08/2025 6:52 AM EST TSH REFLEX FREE T4 Routine 08/08/2025 6: 52 AM EST HEMOGLOBIN A1C Routine 08/08/2025 6:52 AM EST CBC AUTO DIFFERENTIAL Routine 08/08/2025 6:52 AM EST LIPID PANEL Routine 08/08/2025 6:52 AM EST COMPREHENSIVE METABOLIC PANEL Routine 08/08/2025 6:52 AM EST POCT GLUCOSE Routine 08/07/2025 7:28 PM EST RAPID COVID-19 RNA FOR SURVEILLANCE (ED ONLY) STAT 08/07/2025 2:21 PM EST MAGNESIUM STAT 08/07/2025 11:54 AM EST COMPREHENSIVE METABOLIC PANEL STAT 08/07/2025 11:54 AM EST CBC AUTO DIFFERENTIAL STAT 08/07/2025 11:54 AM EST ECG 12-LEAD STAT 08/07/2025 11:46 AM EST HEART & VASCULAR - SCANNED 08/07/2025 from Last 3 Months Results * Due to [place] state law, this organization might not be sharing negative HIV tests. * (ABNORMAL) POCT Glucose, interfaced (08/14/2025 11:22 AM EST) Only the most recent of25 resultswithin the time period is included. [facility] Glucose, POCT 199(H) 70 - 99 mg/dL 08/14/2025 11:24 AM EST [facility], POC Comment: The it lead has not determined the efficacy of this test in Critically ill patients. [facility] defines Critically ill patients for the purpose of blood glucose monitoring (BGM) by glucometer, as patients meeting one or more of the following criteria: Hypotension- non-ICU patients (systolic blood pressure Less than 90 mmHg) due to shock Hypotension -ICU patients (Mean Arterial Pressure (MAP) <60 mmHg or systolic blood pressure < 90 mmHg due to shock Patients receiving Vasopressors (phenylephrine, vasopressin or norepinephrine) Anasarca In all locations, BGM test results should not be relied upon in the above situations, unless these results confirmed with lab-based glucose values. Blood 08/14/2025 11:2 2 AM EST 08/14/2025 11:24 AM EST Teja Raza MD MPH LAB POCT ORDERABLES - DEVICE Final Result Performing Organization Address [facility]/ZIP Co de Phone Number [facility], [facility] [address] [place] [address], [place] * (ABNORMAL) Valproic Acid Level, Total (08/14/2025 5:34 AM EST) Only the most recent of2 resultswithin the time period is included. Pathologist [facility] Valproic Acid, Total 37(L) 50 - 100 ug/mL 08/14/2025 6:16 AM EST [facility] Blood Structure of peripheral vein / Unknown Venipuncture / Unknown 08/14/2025 5:34 AM EST 08/14/2025 5:40 AM EST Teja Raza MD MPH LAB BLOOD ORDERABLES Final Re sult [facility] LAB[facility]ATORY [address] [place] [address], [place] * COVID-19, Flu A/B & RSV RNA PCR, Symptomatic (08/09/2025 4:43 PM EST) PCR, SARS CoV-2 RNA Not Detected Not Detected CEPHE[employer] 08/09/2025 6:13 PM EST [facility] CLINICAL PATHOLOGY LABORATORY Comment:A Not Detected (Nega tive) test result is indicative of the absence of SARS-CoV-2 RNA at the level of LoD (Limit of Detection). A negative result does not rule out the possibility of COVID-19 and should not be used as the sole basis for treatment or patient management decisions. If COVID-19 is still suspected, based on exposure history together with other clinical findings, re-testing should be considered. Flu A RNA PCR Not Detected Not Detected CEPOpenEdID GENEXPERT 08/09/2025 6:13 PM EST [facility]GAL[facility] CL[facility] PATHOLOG[facility] LABORATORY Comment:Negative results do not preclude infection and should not be used as the sole basis for diagnosis, treatment or other patient management decisions. Negative results must be combined with clinical observations, patient history, and/or epidemiological information. Flu B RNA PCR Not Detected Not Detected CEPOpenEdID GENEXPERT 08/09/2025 6:13 PM EST [facility] SERVICESGrabilityWV [facility] CL[facility]ICAL PATHOLOGY LABORATORY Comment:Negative results do not preclude infection and should not be used as the sole basis for diagnosis, treatment or other patient management decisions. Negative results must be combined with clinical observations, patient history, and/or epidemiological information. RSV RNA PCR Not Detected Not Detected CEPOpenEdID GENEXPERT 08/09/2025 6:13 PM EST [facility]ST[facility] HEALTHGr[facility] LAB[facility] Comment:Negative results do not preclude infection and should not be used as the sole basis for diagnosis, treatment or other patient management decisions. Negative results must be combined with clinical observations, patient history, and/or epidemiological information. Swab (Nares) Non-Blood Collection / Unknown 08/09/2025 4:43 PM EST 08/09/2025 4:50 PM EST [facility] CLINICAL PATHOLOGY LABORATORY - 08/09/2025 6:13 PM EST This test was developed, validated and its performance characteristics determined by [facility] Clinical Labs. This test has not been cleared or approved by the U.S. Food and Drug Administration (FDA). FDA Policy for Diagnostic Tests for Coronavirus Disease-2019 during the Public Health Emergency issued November 06, 2019, is followed. Teja Raza MD MPH LAB BODY FLUIDS AND STOOLS OR DERABLES Final Result Performing Organization Address City/[facility]/ZIP Co de Phone Number [facility] [address] [place] [address], [place] * (ABNORMAL) lamoTRIgine (LaMICtal) Level (08/09/2025 8:17 AM EST) Lamotrigine <0.5(L) 2.5 - 15.0 mcg/mL 08/12/2025 2:46 AM EST STEPHANIE JAIME (CONCEPCIÓN) Comment: This test was developed and its analytical performance characteristics have been determined by [employer] [place], [place]. It has not been cleared or approved by the U.S. Food and Drug Administration. This assay has been validated pursuant to the CLIA regulations and is used for clinical purposes. Blood Structure of peripheral vein / Unknown Venipuncture / Unknown 08/09/2025 8:17 AM EST 08/09/2025 8:18 AM EST Narrative STEPHANIE JAIME (CONCEPCIÓN) - 08/12/2025 2:46 AM EST [facility] Received Date: Teja Raza MD MPH LAB BLOOD ORDERABLES Final Re sult Performing Organization Address [facility] Co de Phone Number STEPHANIE RAO) [phone] [place], [place] , [place] * ECG 12 lead (08/08/2025 6:40 PM EST) Only the most recent of2 resultswithin the time period is included. Ventricular Rate EKG 95 BPM MUSE EKG Atrial Rate 95 BPM MUSE EKG NM Interval 150 ms MUSE EKG QRS Interval 86 ms MUSE EKG QT Interval 342 ms MUSE EKG QTC Interval 429 ms MUSE EKG P [place] 58 degrees MUSE EKG R [place] 3 degrees MUSE EKG T Wave [place] 40 degrees MUSE EKG 08/08/2025 6:40 PM EST 08/10/2025 1:03 PM EST Impressions MUSE EKG - 08/10/2025 1:03 PM EST NORMAL SINUS RHYTHM NORMAL ECG WHEN COMPARED WITH ECG OF 16-Dec-2025 11:46, (UNCONFIRMED) NO SIGNIFICANT CHANGE WAS FOUND Confirmed by Silas Gill ([id number]) on 08/10/2025 1:03:28 PM Narrative Procedure Note Silas Gill MD - 08/10/2025 IMPRESSION: NORMAL SINUS RHYTHM NORMAL ECG WHEN COMPARED WITH ECG OF 07-Aug-2025 11:46, (UNCONFIRMED) NO SIGNIFICANT CHANGE WAS FOUND Confirmed by Silas Gill ([id number]) on 08/10/2025 1:03:28 PM Teja Raza MD MPH ECG ORDERABLES Final Result MUSE EKG * (ABNORMAL) Drugs of Abuse Screen, Urine (08/08/2025 7:26 AM EST) Amphetamine Screen, Urine Negative Negative 08/08/2025 8:10 AM EST [facility] CLINICAL PATHOLOGY LABORATORY Comment: Detection limit of 1000 ng/mL of d-Methamphetamine. Drug results are to be used only for medical purposes. Unconfirmed screening results must not be used for non-medical purposes. Barbiturate Screen, Urine Presumptive Positive(A) Negative 08/08/2025 8:10 AM EST [facility] CL[facility] PATHOLOG[facility] LABORAT[facility] Comment: Detection limit of 200 ng/mL of Secobarbital. Drug results are to be used only for medical purposes. Unconfirmed screening results must not be used for non-medical purposes. Benzodiazepine Screen, Urine Presumptive Positive(A) Negative 08/08/2025 8:10 AM EST [facility] LAB[facility] Comment: Detection limit of 200 ng/mL of Nordiazepam. Drug results are to be used only for medical purposes. Unconfirmed screening results must not be used for non-medical purposes. Buprenorphine Screen, Urine Negative Negative 08/08/2025 8:10 AM EST [facility] CL[facility] PATH[facility] LAB[facility] Comment: Detection limit of 10 ng/mL of norbuprenorphine. Drug results are to be used only for medical purposes. Unconfirmed screening results must not be used for non-medical purposes. Cocaine Metabolite Screen, Urine Negative Negative 08/08/2025 8:10 AM EST [facility] CLINICAL PATHOLOGY LABORATORY Comment: Detection limit of 300 ng/mL of Benzoylecgonine. Drug results are to be used only for medical purposes. Unconfirmed screening results must not be used for non-medical purposes. Marijuana Screen, Urine Negative Negative 08/08/2025 8:10 AM EST [facility] CLINICAL PATHOLOGY LABORATORY Comment: Detection limit of 50 ng/mL of 69-[id number]-mcten-9-KHG-2-carboxylic acid. Drug results are to be used only for medical purposes. Unconfirmed screening results must not be used for non-medical purposes. Methadone Metabolite Screen, Urine Negative Negative 08/08/2025 8:10 AM EST [facility] PATHOLOG[facility] LABORATORY Comment: Detection limit of 300 ng/mL of Methadone. Drug results are to be used only for medical purposes. Unconfirmed screening results must not be used for non-medical purposes. Oxycodone Screen, Urine Negative Negative 08/08/2025 8:10 AM EST [facility] LABORAT[facility] Comment: Detection limit of 100 ng/mL of Oxycodone. Drug results are to be used only for medical purposes. Unconfirmed screening results must not be used for non-medical purposes. Opiate Screen, Urine Negative Negative 08/08/2025 8:10 AM EST [facility] LAB[facility]AT[facility] Comment: Detection limit of 300 ng/mL of Morphine. Drug results are to be used only for medical purposes. Unconfirmed screening results must not be used for non-medical purposes. Fentanyl Screen, Urine Negative Negative 08/08/2025 8:10 AM EST [facility] PATH[facility] LABORAT[facility] Comment: Detection limit of 5 ng/mL of norfentanyl. Drug results are to be used only for medical purposes. Unconfirmed screening results must not be used for non-medical purposes. Urine Urine specimen collection, clean catch / Unknown 08/08/2025 7:26 AM EST 08/08/2025 7:27 AM EST us Teja Raza MD MPH LAB URINE ORDERABLES Final Re sult [facility] CLINICAL PATHOLOGY LABORATORY [address] [place] [address], * TSH Reflex Free T4 (08/08/2025 6:52 AM EST) Pathologist [facility] TSH 1.170 0.280 - 3.890 uIU/mL 08/08/2025 8:31 AM EST [email or web address] LAB[facility] Blood Structure of peripheral vein / Unknown Venipuncture / Unknown 08/08/2025 6:52 AM EST 08/08/2025 7:46 AM EST us Teja Raza MD MPH LAB BLOOD ORDERABLES Final Re sult [facility] CL[facility] PATH[facility] LABORATORY [address] [place] [address] * (ABNORMAL) CBC Auto Differential (08/08/2025 6:52 AM EST) Only the most recent of2 resultswithin the time period is included. Pathologist [facility] WBC 6.2 3.8 - 10.8 10*3/uL 08/08/2025 7:52 AM EST [email or web address] LAB[facility] RBC 4.77 4.20 - 5.80 10*6/uL 08/08/2025 7:52 AM EST [email or web address] Hemoglobin 12.3(L) 13.2 - 17.1 g/dL 08/08/2025 7:52 AM EST [facility] Hematocrit 38.5 38.5 - 50.0 % 08/08/2025 7:52 AM EST [facility] MCV 80.7 80.0 - 100.0 fL 08/08/2025 7:52 AM EST [facility] MCH 25.8(L) 27.0 - 33.0 pg 08/08/2025 7:52 AM EST [facility] MCHC 31.9(L) 32.0 - 36.0 g/dL 08/08/2025 7:52 AM EST [facility] RDW 16.8(H) 11.0 - 15.0 % 08/08/2025 7:52 AM EST [facility] Platelets 204 140 - 400 10*3/uL 08/08/2025 7:52 AM EST [facility] MPV 11.2 7.5 - 12.5 fL 08/08/2025 7:52 AM EST [facility] Neutrophil % 65.8 % 08/08/2025 7:52 AM EST [facility] Immature Grans % 1.0(H) 0.0 - 0.9 % 08/08/2025 7:52 AM EST [facility] Lymphocyte % 23.9 % 08/08/2025 7:52 AM EST [facility] Monocyte % 7.1 % 08/08/2025 7:52 AM EST [facility] Eosinophil % 1.9 % 08/08/2025 7:52 AM EST [facility] Basophil % 0.3 % 08/08/2025 7:52 AM EST [facility] Neutrophil # 4.06 1.50 - 7.80 10*3/uL 08/08/2025 7:52 AM EST [facility] Immature Grans # 0.06(H) <=0.03 10*3/uL 08/08/2025 7:52 AM EST [facility] Lymphocyte # 1.50 0.85 - 3.90 10*3/uL 08/08/2025 7:52 AM EST [facility] Monocyte # 0.40 0.20 - 0.95 10*3/uL 08/08/2025 7:52 AM EST [facility] LABORATORY Eosinophil # 0.10 0.02 - 0.50 10*3/uL 08/08/2025 7:52 AM EST [facility] Basophil # <0.03 0.00 - 0.20 10*3/uL 08/08/2025 7:52 AM EST [facility] nRBC % 0.0 /100 WBCs 08/08/2025 7:52 AM EST [facility] nRBC # <0.01 <0.01 10*3/uL 08/08/2025 7:52 AM EST [facility] Blood Structure of peripheral vein / Unknown Venipuncture / Unknown 08/08/2025 6:52 AM EST 08/08/2025 7:43 AM EST Teja Raza MD MPH LAB BLOOD ORDERABLES Final Re sult [facility] [address] [place] [address], [place] * (ABNORMAL) Hemoglobin A1c (08/08/2025 6:52 AM EST) Hemoglobin A1C 7.6(H) <5.7 % 08/08/2025 11:44 AM EST [facility] Comment: For someone without known diabetes, a hemoglobin A1c value of 6.5% or greater indicates that they may have diabetes and this should be confirmed with a follow-up test. For someone with known diabetes, a value <7% indicates that their diabetes is well controlled and a value greater than or equal to 7% indicates suboptimal control. A1c targets should be individualized based on duration of diabetes, age, comorbid conditions, and other considerations. Currently, no consensus exists regarding use of hemoglobin A1c for diagnosis of diabetes for children. eAG (MG/DL) 171 mg/dL 08/08/2025 11:44 AM EST [facility] eAG (MMOL/L) 9.5 mmol/L 08/08/2025 11:44 AM [facility] Blood Structure of peripheral vein / Unknown Venipuncture / Unknown 08/08/2025 6:52 AM EST 08/08/2025 7:42 AM EST Narrative [facility] - 08/08/2025 11:44 AM EST [facility] Received Date:[id number] us Fidmiranda Raza MD MPH LAB BLOOD ORDERABLES Final Re sult [facility] [address] [facility] [address] [facility] [address], [place] [address], [place] [phone] [employer] [facility] [address] [facility] [address], [place] [address], [place] [phone] * Folate (08/08/2025 6:52 AM EST) Folate 15.4 4.8 - 24.2 ng/mL 08/08/2025 8:31 AM EST [facility] Blood Structure of peripheral vein / Unknown Venipuncture / Unknown 08/08/2025 6:52 AM EST 08/08/2025 7:46 AM EST Teja Raza MD MPH LAB BLOOD ORDERABLES Final Re sult Performing Organization Address City/[facility]/ZIP Co de Phone Number [facility] [address] [place] [address], * Vitamin B12 (08/08/2025 6:52 AM EST) Pathologist [facility] Vitamin B12 566 232 - 1,245 pg/mL 08/08/2025 8:31 AM EST [facility] Blood Structure of peripheral vein / Unknown Venipuncture / Unknown 08/08/2025 6:52 AM EST 08/08/2025 7:46 AM EST Teja Raza MD MPH LAB BLOOD ORDERABLES Final Re sult [facility] [address] [place] [address], * (ABNORMAL) Lipid panel - Fasting (08/08/2025 6:52 AM EST) Cholesterol 154 <=199 mg/dL 08/08/2025 8:31 AM EST [facility] Triglycerides 267(H) <=149 mg/dL 08/08/2025 8:31 AM EST [facility] Cholesterol, HDL 31(L) 40 - 59 mg/dL 08/08/2025 8:31 AM EST [facility] Cholesterol, Non-HDL 123 mg/dL 08/08/2025 8:31 AM EST [facility] LDL Cholesterol 70 <100 mg/dL 08/08/2025 8:31 AM EST [facility] Comment:LDL-C is calculated using the Friedewald calculation. VLDL 53.4 mg/dL 08/08/2025 8:31 AM EST [facility] Cholesterol/HDL Ratio 5.0(H) <5.0 08/08/2025 8:31 AM EST [facility] Blood Structure of peripheral vein / Unknown Venipuncture / Unknown 08/08/2025 6:52 AM EST 08/08/2025 7:46 AM EST Narrative [facility] - 08/08/2025 8:31 AM EST Adult Treatment Panel III Guidelines of NCEP 2001 Category: Total Cholesterol (mg/dL) Desirable <200 Borderline High 200-239 High >=240 Category: LDL Cholesterol (mg/dL) Optimal <100 Near Optimal/Above Optimal 100-129 Borderline High 130-159 High 160-189 Very High >=190 Category: HDL Cholesterol (mg/dL) Low <40 High >=60 NCEP's Expert Panel on Blood Cholesterol in Children and Adolescents Category: Total Cholesterol (mg/dL) Desirable <170 Borderline High 170-199 High >=200 Category: LDL Cholesterol (mg/dL) Desirable <110 Borderline High 110-129 High >=130 us Teja Raza MD MPH LAB BLOOD ORDERABLES Final Re sult [facility] LAB[facility] [address] [place] [address], [place] * (ABNORMAL) Comprehensive Metabolic Panel (08/08/2025 6:52 AM EST) Only the most recent of2 resultswithin the time period is included. NA 139 135 - 145 mmol/L 08/08/2025 8:31 AM EST [facility] K 4.5 3.5 - 5.3 mmol/L 08/08/2025 8:31 AM EST [facility] Cl 102 97 - 110 mmol/L 08/08/2025 8:31 AM EST [facility] CO2 27 22 - 32 mmol/L 08/08/2025 8:31 AM EST [facility] Anion Gap 10 5 - 15 08/08/2025 8:31 AM EST [facility] Glucose 142(H) 65 - 99 mg/dL 08/08/2025 8:31 AM EST [facility] Creatinine 0.65 0.60 - 1.30 mg/dL 08/08/2025 8:31 AM EST [facility] Calcium 9.2 8.6 - 10.5 mg/dL 08/08/2025 8:31 AM EST [facility] Total Protein 6.5 6.0 - 8.0 g/dL 08/08/2025 8:31 AM EST [facility] Albumin 3.5 3.5 - 5.2 g/dL 08/08/2025 8:31 AM EST [facility] Bilirubin, Total 0.2 0.2 - 1.2 mg/dL 08/08/2025 8:31 AM EST [facility] Alkaline Phosphatase 106 35 - 129 U/L 08/08/2025 8:31 AM EST [facility] AST 27 10 - 40 U/L 08/08/2025 8:31 AM EST [facility] ALT 23 10 - 40 U/L 08/08/2025 8:31 AM EST [facility] BUN 15 7 - 23 mg/dL 08/08/2025 8:31 AM EST [facility] CLINICAL PATHOLOG[facility] LABORATORY eGFR >90 >=60 mL/min/1. 73m2 08/08/2025 8:31 AM EST [facility] Comment:The estimated glomer ular filtration rate (eGFR) is calculated using a new formula developed by the NKF-ASN task force to eliminate race-based correction factors. The new formula uses serum/plasma creatinine, age, and gender to determine eGFR. A value below 60mls/min might indicate kidney disease and will be flagged. For additional information, see Carmen et al, Am J Kidney Dis. 2021;79(2):268- 288, A Unifying Approach for GFR estimation: Recommendations of the NKF-ASN Task Force on Reassessing the Inclusion of Race in Diagnosing Kidney Disease . Globulin, Total 3.0 2.1 - 4.2 g/dL 08/08/2025 8:31 AM EST [facility] CL[facility] PATHOLOG[facility] LABORAT[facility] A/G Ratio 1.2(L) 1.5 - 3.0 08/08/2025 8:31 AM EST [facility] LAB[facility]AT[facility] Blood Structure of peripheral vein / Unknown Venipuncture / Unknown 08/08/2025 6:52 AM EST 08/08/2025 7:46 AM EST us Teja Raza MD MPH LAB BLOOD ORDERABLES Final Re sult [facility] PATH[facility] LAB[facility]AT[facility] [address] [place] [address], * Rapid COVID-19 for Surveillance - Psych/Admission (08/07/2025 2:21 PM EST) PCR, SARS CoV-2 RNA Not Detected Not Detected [employer] 08/07/2025 3:18 PM EST [facility] Comment:A Not Detected (Nega tive) test result is indicative of the absence of SARS-CoV-2 RNA at the level of LoD (Limit of Detection). A negative result does not rule out the possibility of COVID-19 and should not be used as the sole basis for treatment or patient management decisions. If COVID-19 is still suspected, based on exposure history together with other clinical findings, re-testing should be considered. Swab Specimen from nasopharyngeal structure / Unknown Non-Blood Collection / Unknown 08/07/2025 2:21 PM EST 08/07/2025 2:30 PM EST Narrative [facility] - 08/07/2025 3:18 PM EST This test was developed, validated and its performance characteristics determined by [facility] Clinical Labs. This test has not been cleared or approved by the U.S. Food and Drug Administration (FDA). FDA Policy for Diagnostic Tests for Coronavirus Disease-2019 during the Public Health Emergency issued November 06, 2019, is followed. Renzo Vaughan MD LAB BODY FLUIDS AND STOOLS ORD ERABLES Final Result Performing Organization Address [facility]/ZIP Co de Phone Number [facility] [address] [place] [address], * Magnesium (08/07/2025 11:54 AM EST) MG 1.9 1.6 - 2.4 mg/dL 08/07/2025 12:41 PM EST [facility] Blood Structure of peripheral vein / Unknown Venipuncture / Unknown 08/07/2025 11:54 AM EST 08/07/2025 11:59 AM EST Kristi Rubi MD LAB BLOOD ORDERABLES F inal Result [facility] [address] [place] [id number], * HEART & VASCULAR - SCANNED (08/07/2025) Anatomical Region Laterality Modality Other Onbase Scan [facility] SCANNED PROCEDURES Final Resu lt from Last [address] [facility] Advance Directives * Full Code (Latest Code Status on File) Date Activated Date Inactivated Comments 08/07/2025 6:31 PM 08/14/2025 4:12 PM * Presumed Full Code Date Activated Date Inactivated Comments 08/07/2025 5:46 PM 08/07/2025 6:31 PM Care Teams Commission Specialist Relationship Specialty Start Date End Date Ref, Allan DO NOT EDIT THIS RECORD VIA PROVIDER ON THE FLY PCP - General Motorized Squad Lieutenant 08/07/25
--- OUTSIDE RECORDS SUMMARY | 2025-08-15 01:38 | XMS_ITS | Encounter Summary ---
Author Organization [facility] Address [address] [place] [phone] Phone Care Team Providers Care Electrical Software Engineer Name Role Phone Rosa Sepulveda REFINERY OPERATOR [employer] Primary Care Provider [phone] Encounter Details Date Type Department Care Team (Late st Contact Info) Description 06/01/2025 Procedure Pass [facility], Ct Scan - [facility] [address] [place] [address] Social History Tobacco Use Types Packs/Day Years [...] on filedocumented in this encounter Care Teams Electrical Software Engineer Relationship Specialty Start Date End Date Rosa Sepulveda NP [address] [place] [id number] PCP - General Family Medicine 09/13/19 documented as of this encounter Additional Source Comments The information contained in this document represents components of the legal health record. It is not the complete legal health record.[facility]
[2025-08-15 02:17] VITALS: BP 139/99; PULSE 99; RESP 17; TEMP 36.6; O2SAT 98
== END 2025-08-15 02:20 | disposition home or self-care (01) ==
PROVIDERS: Emergency Provider Emergency Medicine
DX: M54.16 Radiculopathy, lumbar region (principal); M54.50 Low back pain, unspecified; E11.9 Type 2 diabetes mellitus without complications; I10 Essential (primary) hypertension; F17.210 Nicotine dependence, cigarettes, uncomplicated; Z79.4 Long term (current) use of insulin
CPT/HCPCS: 99284; J1885; J2765

== ENCOUNTER → 2025-08-15 09:36 | Outpatient (BNV) | payer MEDICARE, MEDICAID, SELFPAY | PROVIDERS: Admitting Provider Clinical Nurse Specialist Psychiatric/Mental Health, Adult; Emergency Provider Emergency Medicine; Visit Provider Internal Medicine Cardiovascular Disease | DX: Z13.6 Encounter for screening for cardiovascular disorders (principal) | CPT/HCPCS: 93010 ==

== ENCOUNTER → 2025-08-15 11:58 | Outpatient (BNV) | payer MEDICARE, MEDICAID, SELFPAY | PROVIDERS: Admitting Provider Clinical Nurse Specialist Psychiatric/Mental Health, Adult; Emergency Provider Emergency Medicine; Visit Provider Nurse Practitioner Family | DX: L89.159 Pressure ulcer of sacral region, unspecified stage (principal); R73.9 Hyperglycemia, unspecified | CPT/HCPCS: 99231; 99499 ==

== ENCOUNTER → 2025-08-15 11:58 | Outpatient (BNV) | payer MEDICARE, MEDICAID, SELFPAY | PROVIDERS: Admitting Provider Clinical Nurse Specialist Psychiatric/Mental Health, Adult; Emergency Provider Emergency Medicine; Visit Provider Nurse Practitioner Psychiatric/Mental Health | DX: F31.4 Bipolar disorder, current episode depressed, severe, without psychotic features (principal); F10.20 Alcohol dependence, uncomplicated; R45.851 Suicidal ideations; E11.9 Type 2 diabetes mellitus without complications; F43.11 Post-traumatic stress disorder, acute | CPT/HCPCS: 99232 ==